=== PATIENT | male | born 1945 | race Hispanic/Latino ===

== ENCOUNTER 2017-03-19 09:10 | Inpatient (IN) | payer MEDICARE ==
[2017-03-19 09:47] VITALS: BMI 35.2
--- NOTE | 2017-03-19 10:52 | RAD ---
HISTORY: infected toe, h/o R rib fractures COMPARISON: 07/27/2015 FINDINGS: LUNGS: No active pulmonary disease. PLEURA: No significant pleural effusion identified, no pneumothorax apparent. CARDIOVASCULAR: Normal. OSSEOUS STRUCTURES: Multiple old rib fractures are seen on the right side. VISUALIZED UPPER ABDOMEN: Normal. OTHER FINDINGS: None. IMPRESSION: No active disease.
[2017-03-19 11:13] LABS: BASO # 0.05 K/mm3 (0.0-2.0); BASO % 0.3 % (0.0-3.0); EOS # 0.3 (0.0-0.7); EOS % 2.2 % (1.5-5.0); GRAN # 11.39 (1.4-6.5); HEMOGLOBIN 13.9 gm/dL (14.0-18.0); LYMPH # 2.1 (1.2-3.4); LYMPH % 13.9 % (22.0-35.0); MEAN CELL VOLUME 90.3 fL (80.0-105.0); MEAN CORPUSCULAR HEMOGLOBIN 29.8 pg (25.0-35.0); MEAN PLATELET VOLUME 9.3 fl (7.0-11.0); MONO # 1.1 (0.1-0.6); MONO % 7.6 % (1.0-6.0); PLATELET COUNT 256 10^3/uL (120.0-450.0); RBC 4.66 10^6/uL (3.5-6.1); RED CELL DISTRIBUTION WIDTH 13.9 % (11.5-14.5)
[2017-03-19 11:19] LABS: ALB/GLOB RATIO 0.8 (1.1-1.8); ALBUMIN 3.5 g/dL (3.0-4.8); ALT/SGPT 53 U/L (7-56); AST/SGOT 37 U/L (15-59); BLOOD UREA NITROGEN 28 mg/dL (7-21); CALCIUM 9.6 mg/dL (8.4-10.5); GFR AFRICAN-AMERICAN > 60; GFR NON-AFRICAN AMERICAN 50; INR 1.02 (0.93-1.08); PARTIAL THROMBOPLASTIN TIME 26.6 Seconds (23.7-30.8)
--- NOTE | 2017-03-19 12:07 | ED PDOC ---
Arrival/HPI - General Chief Complaint: Abnormal Skin Integrity Time Seen by Provider: 03/19/17 10:02 Historian: Patient - History of Present Illness Narrative History of Present Illness (Text): 03/19/17 10:10 A 72 year old male, whose past medical history includes diabetes and hypertension, was sent by Dr. Baron for right 1st digit toe wound. Reports wound developed a week ago and Dr. Baron has attempted to treat the wound as an outpatient with antibiotics and debridement but without improvement. Denies fever, chills, dyspnea. Vp & General Counsel: Dr. Baron PMD: Dr. Hamm Time/Duration: 1 week Symptom Onset: Sudden Symptom Course: Unchanged Activities at Onset: Rest Context: Home Past Medical History - Provider Review Nursing Documentation Reviewed: Yes - Cardiac Hx Cardiac Disorders: Yes Hx Hypertension: Yes - Endocrine/Metabolic Hx Endocrine Disorders: Yes Hx Diabetes Mellitus Type 2: Yes - Hematological/Oncological Hx Blood Transfusions: No - Psychiatric Hx Substance Use: No - Surgical History Hx Cholecystectomy: Yes Hx Musculoskeletal Surgery: Yes (left small toe) - Anesthesia Hx Anesthesia: Yes Hx Anesthesia Reactions: No Hx Malignant Hyperthermia: No Family/Social History - Physician Review Nursing Documentation Reviewed: Yes Family/Social History: No Known Family HX Smoking Status: Never Smoked Hx Alcohol Use: No Hx Substance Use: No Allergies/Home Meds Allergies/Adverse Reactions: Allergies strawberry Adverse Reaction (Verified 03/19/17 09:49) RASH rasberries Adverse Reaction (Intermediate, Uncoded 03/19/17 09:49) RASH Home Medications: Home Meds Medication Instructions Recorded Confirmed Canagliflozin [Invokana] 100 mg PO DAILY 07/08/15 07/08/15 Insulin Glargine, Recombina 40 units SUBCUT DAILY 07/08/15 07/08/15 [Lantus] Lisinopril-Hydrochlorothiazide 1 tab PO DAILY 07/08/15 07/08/15 12.5 mg-10 mg Metformin HCl [Glucophage] 1,000 mg PO ACLD 07/08/15 07/08/15 Novolog 2 units SUBCUT ACBL 07/08/15 07/08/15 Novolog 2 units SUBCUT ACD 07/08/15 07/08/15 Otezla 30 mg PO BID 07/08/15 07/08/15 Victoza 1.8 units SUBCUT DAILY 07/08/15 07/08/15 Zocor 20 mg PO DAILY 07/08/15 07/08/15 Review of Systems - Physician Review All systems were reviewed & negative as marked: Yes - Review of Systems Constitutional: absent: Fevers Skin: Other (1st digit toe wound) Neurological: absent: Headache Physical Exam - Physical Exam Narrative Physical Exam (Text): 03/19/17 10:10 Constitutional: No acute distress. Head: Normocephalic. Atraumatic. Eyes: PERRL. ENT: Moist mucous membranes. Neck: Supple. Cardiovascular: Regular rate. Chest: No tenderness. Respiratory: Clear to auscultation bilaterally. GI: Soft. Nontender. Nondistended. Back: No CVA tenderness. Musculoskeletal: No tenderness or swelling of extremities. Skin: No rash. Neurologic: Alert, no focal deficit. Lower extremity: 1st digit dusky in appearance, onychomycosis of nail, ulcer on medial aspect of 1st digit; asymmetrical R leg swelling. Vital Signs Reviewed: Yes Vital Signs Temp Pulse Resp BP Pulse Ox 03/19/17 09:45 97.7 F 79 18 145/78 95 Temperature: Afebrile Blood Pressure: Normal Pulse: Regular Respiratory Rate: Normal Appearance: Positive for: Well-Appearing, Non-Toxic, Comfortable Pain Distress: None Mental Status: Positive for: Alert and Oriented X 3 Medical Decision Making ED Course and Treatment: 03/19/17 10:10 Impression: A 72 year old male sent by Dr. Baron with right 1st digit toe wound that has failed outpatient treatment. Plan: -- EKG -- chest xray -- labs -- Urinalysis -- US lower extremity vein right -- Reassess and disposition Progress Notes: EKG: Ordered, reviewed, and independently interpreted the EKG. Rate : 75 BPM Rhythm : NSR Interpretation : No ST/T wave changes Chest xray: Creator : Timi Boss MD 03/19/17 10:55 IMPRESSION: No active disease. US lower extremity: Negative for DVT Dr. Greene accepts patient for medical service. Resident paged and antibiotics initiated. - Lab Interpretations Lab Results: 03/19/17 10:33 03/19/17 10:33 Lab Results 03/19/17 11:50: Urine Color Yellow, Urine Appearance Clear, Urine pH 6.0, Ur Specific Jordan 1.025, Urine Protein Negative, Urine Glucose (UA) >=1000, Urine Ketones Negative, Urine Blood Negative, Urine Nitrate Negative, Urine Bilirubin Negative, Urine Urobilinogen 0.2, Ur Leukocyte Esterase Negative 03/19/17 10:35: Blood Type O POSITIVE, Antibody Screen Negative, BBK History Checked No verified bt 03/19/17 10:33: Sodium 138, Potassium 4.3, Chloride 100, Carbon Dioxide 30, Anion Gap 12, BUN 28 H, Creatinine 1.4, Est GFR ( Amer) > 60, Est GFR ( Non-Af Amer) 50, Random Glucose 184 H, Calcium 9.6, Total Bilirubin 0.6, AST 37 , ALT 53, Alkaline Phosphatase 225 H, Total Protein 7.9, Albumin 3.5, Globulin 4.4, Albumin/Globulin Ratio 0.8 L 03/19/17 10:33: PT 11.0, INR 1.02, APTT 26.6 03/19/17 10:33: WBC 15.0 H, RBC 4.66, Hgb 13.9 L, Hct 42.1, MCV 90.3, MCH 29.8, MCHC 33.0, RDW 13.9, Plt Count 256, MPV 9.3, Gran % 76.0 H, Lymph % (Auto) 13.9 L, [place] % (Auto) 7.6 H, Eos % (Auto) 2.2, Baso % (Auto) 0.3, Gran # 11.39 H, Lymph # 2.1, [place] # 1.1 H, Eos # 0.3, Baso # 0.05, ESR 5 I have reviewed the lab results: Yes - RAD Interpretation Radiology Orders: 03/19/17 10:16 CHEST PORTABLE [RAD] Stat DUPLEX LOWER EXTRM VEIN RIGHT [US] Stat - EKG Interpretation Interpreted by ED Physician: Yes Type: 12 lead EKG - Medication Orders Current Medication Orders: Vancomycin HCl (Vancomycin 1gm) 1 gm in 250 mls @ 167 mls/hr IVPB STAT STA PRN Reason: Protocol Stop: 03/19/17 14:11 Discontinued Medications Piperacillin Sod/Tazobactam Sod (Zosyn 4.5 Gm In Ns 100ml) 4.5 gm in 100 mls @ 200 mls/hr IVPB STAT STA PRN Reason: Protocol Stop: 03/19/17 13:11 Last Admin: 03/19/17 13:18 Dose: 200 mls/hr - Scribe Statement The provider has reviewed the documentation as recorded by the Latosha Mcknight Provider Isabelaibjb Attestation: All medical record entries made by the Scribe were at my direction and personally dictated by me. I have reviewed the chart and agree that the record accurately reflects my personal performance of the history, physical exam, medical decision making, and the department course for this patient. I have also personally directed, reviewed, and agree with the discharge instructions and disposition. Disposition/Present on Arrival - Present on Arrival Any Indicators Present on Arrival: No History of DVT/PE: No History of Uncontrolled Diabetes: No Urinary Catheter: No History of Decub. Ulcer: No History Surgical Site Infection Following: None - Disposition Have Diagnosis and Disposition been Completed?: Yes Diagnosis: Diabetic infection of right foot, Failure of outpatient treatment Disposition: HOSPITALIZED Disposition Time: 12:45 Patient Plan: Admission Condition: FAIR
[2017-03-19 12:29] LABS: URINE BILIRUBIN NEGATIVE (NEGATIVE); URINE BLOOD NEGATIVE (NEGATIVE); URINE GLUCOSE (UA) >=1000 mg/dL (NEGATIVE); URINE LEUKOCYTE ESTERASE NEGATIVE Leu/uL (NEGATIVE); URINE NITRATE NEGATIVE (NEGATIVE); URINE PROTEIN NEGATIVE mg/dL (<30 mg/dL); URINE UROBILINOGEN 0.2 E.U./dL (<1 E.U./dL)
[2017-03-19 12:42] LABS: URINE COLOR YELLOW (YELLOW)
[2017-03-19] MEDS ORDERED: Vancomycin 1gm in NS 250ml 1 GM/250 ML BAG IVPB STA (12:42)
[2017-03-19] MEDS ORDERED: Piperacill/Tazo 4.5gm in NS 4.5 GM/100 ML BAG IVPB STA (12:42)
[2017-03-19 12:43] LABS: URINE APPEARANCE CLEAR (CLEAR)
--- NOTE | 2017-03-19 13:30 | US ---
PROCEDURE: Right lower extremity venous US HISTORY: Leg pain and swelling. Evaluate for DVT. PHYSICIAN(S): Riccardo Rodrigez M.D. TECHNIQUE: Duplex sonography and color-flow Doppler with graded compression were used to evaluate the deep venous system of the right lower extremity. The exam is limited by body habitus. FINDINGS: The visualized deep venous system of the right lower extremity is sonographically normal and compressible. Normal waveforms and augmentation are seen. There is no sonographic evidence for deep venous thrombosis in the visualized segments of the right lower extremity. IMPRESSION: 1. No sonographic evidence for deep venous thrombosis in the visualized segments of the right lower extremity.
[2017-03-19] MEDS ORDERED: LIRAGLUTIDE SUBCUT SCH (14:30)
[2017-03-19] MEDS ORDERED: INSULIN GLARGINE RECOMBINA 40 UNIT SUBCUT SCH (14:30)
--- NOTE | 2017-03-19 14:30 | CP.PCM.HP ---
<Hilario Dumont - Last Filed: 03/19/17 16:19> History of Present Illness - History of Present Illness History of Present Illness: Patient is a 72 year old male with PMHx of diabetes, hypertension, HPL, psoriasis, and foot wounds who presents to the ED from Dr. Baron for evaluation of a wound located on the 1st digit of the right foot. Patient states the wound developed from a callous without a provoking event apprxomately [address] Baron has attempted to treat the wound with outpatient antibiotic and debridement without improvement and was advised to come to the hospital for further management. Patient states he has had this same issue multiple times in the past, all of which were treated in the in patient setting. Nimishatriston admits to experiencing chills as the wound worsened by has resolved. Denies fevers, dizziness, chest pain, SOB, abdominal pain, N/V, diarrhea, constipation, and urinary symptoms. PMHx: hypertension, hyperlipidemia, diabetes, psoariasis, foot wounds, rib fractures secondary to traumtic injury PSHx: cholecystectomy, inguinal hernia repair Social Hx: denies ETOH use, former smoker- 1ppd for 1 year quit 50 years ago, and denies illicit drug use Family Hx: noncontributory to case Allergies: strawberries- hives and rasberries-hives, kiwi- hives Medications: Please see med rec Cementer: Dr. Baron PMD: Dr. Hamm Present on Admission - Present on Admission Any Indicators Present on Admission: No Review of Systems - Constitutional Additional comments: please see HPI Past Patient History - Past Social History Smoking Status: Never Smoked - CARDIAC Hx Cardiac Disorders: Yes Hx Hypertension: Yes - ENDOCRINE/METABOLIC Hx Endocrine Disorders: Yes Hx Diabetes Mellitus Type 2: Yes - HEMATOLOGICAL/ONCOLOGICAL Hx Blood Transfusions: No - PSYCHIATRIC Hx Substance Use: No - SURGICAL HISTORY Hx Cholecystectomy: Yes Hx Musculoskeletal Surgery: Yes (left small toe) - ANESTHESIA Hx Anesthesia: Yes Hx Anesthesia Reactions: No Hx Malignant Hyperthermia: No Meds Allergies/Adverse Reactions: Allergies Allergy/AdvReac Type Severity Reaction Status Date / Time strawberry AdvReac RASH Verified 03/19/17 09:49 rasberries AdvReac Intermediate RASH Uncoded 03/19/17 09:49 Physical Exam - Constitutional Appears: Non-toxic, No Acute Distress - Head Exam Head Exam: ATRAUMATIC, NORMAL INSPECTION - Eye Exam Eye Exam: absent: Conjunctival injection - Neck Exam Neck exam: Negative for: Thyromegaly - Respiratory Exam Respiratory Exam: Clear to Auscultation Bilateral, NORMAL BREATHING PATTERN. absent: Rales, Rhonchi, Wheezes - Cardiovascular Exam Cardiovascular Exam: REGULAR RHYTHM, +S1, +S2 - GI/Abdominal Exam GI & Abdominal Exam: Soft. absent: Distended, Guarding, Rigid - Extremities Exam Additional comments: 1st digit on right foot dusky in appearance, no drainage from wound onychomycosis of nail ulcer on medial aspect of 1st digit asymmetrical R leg swelling - Neurological Exam Neurological exam: Alert, CN II-XII Intact, Oriented x3 Additional comments: patient is awake, alert, responds to verbal stimuli, answers questions appropriately, follows commands, and moves extremities past midline sensation is intact to light touch in bilateral feet muscle strength 5/5 throughout - Psychiatric Exam Psychiatric exam: Normal Affect, Normal Mood - Skin Skin Exam: Warm Additional comments: please see extremities section Results - Vital Signs Recent Vital Signs: Last Vital Signs Temp 97.7 F 03/19/17 09:45 Pulse 79 03/19/17 09:45 Resp 18 03/19/17 09:45 BP 145/78 03/19/17 09:45 Pulse Ox 95 03/19/17 09:45 - Labs Result Diagrams: 03/19/17 10:33 03/19/17 10:33 Assessment & Plan - Assessment and Plan (Free Text) Assessment: Patient is a 72 year old male with PMHx of diabetes, hypertension, HPL, and is being admitted to the hospital for evaluation of a wound located on the 1st digit of the right foot. Plan: 1. Wound with leukocytosis details- 1st digit of right foot - admit inpatient med/surg - blood culture stat - wound culture stat - silver sulfadiazene - teflaro 400mg IV q12 - lactic acid stat - crp stat - esr stat - podiatry consult- communicated to service - ID consult - communicated to service - stat orders relayed to nursing - dry MRI of right foot stat - AM labs CBC, BMP, Mag, Phos 2. Edema, details right lower extremity - arterial doppler U/S bilateral stat - venous doppler left LE stat 3. Diabetes - accu checks ACHS - Insulin levemir - Insulin lispro - Victoza - HgbA1c stat 4. HTN - hold home lisinopril- HCTZ - start patient on cozar 5. HPL - continue home zocor, nonformulary, call placed to pharmacy- instructed to switch medication to lipitor 10mg - lipid panel stat 5. Psoriasis - hold home otezla, call placed to pharmacy, medication is nonformulary - may continue if brought from home 7. Elevated Alkaline Phosphatase - LFTs 8. PPX - protonix - subq heparin Patient discussed with atttendingDr. Greene - Date & Time Date: 03/19/17 Time: 03:15 <Amrit Greene U - Last Filed: 03/20/17 00:01> Results - Vital Signs Recent Vital Signs: Last Vital Signs Temp 97.7 F 03/19/17 09:45 Pulse 81 03/19/17 18:28 Resp 18 03/19/17 18:28 BP 162/75 H 03/19/17 18:28 Pulse Ox 96 03/19/17 18:28 - Labs Result Diagrams: 03/19/17 10:33 03/19/17 10:33 Labs: Laboratory Results - last 24 hr 03/19/17 03/19/17 03/19/17 15:15 15:15 15:15 ESR Lactic Acid 1.3 Triglycerides 144 Cholesterol 108 L LDL Cholesterol Direct 38 HDL Cholesterol 31 Procalcitonin 0.19 03/19/17 15:15 ESR 25 H Lactic Acid Triglycerides Cholesterol LDL Cholesterol Direct HDL Cholesterol Procalcitonin Assessment & Plan - Assessment and Plan (Free Text) Assessment: A/P; NON HEALING RIGHT BIG TOE DIABETIC ULCER VS CELLULITIS VS ??OSTEOMYELITIS UNC IRDM LEUCOCYTOSIS ELEVATED ESR ELEVATED CRP GLYCOSURIA LEFT TIBIAL PAD OLD RIGHT RIB FRACTURE RIGHT FOOT ARTHROSIS ?NON DISPLACED RIGHT TRABECULAR FRACTURE WITH PLANTAR OSTEOPHYTE 1ST PHALANX ? FOREIGN BODY RIGHT BIG TOE HX IRDM HX PSORIASIS HTN DYSLIPIDEMIA. ? MILD PRE RENAL KIDNEY INJURY. PLAN PER ORDERS.
[2017-03-19] MEDS ORDERED: INSULIN ASPART SUBCUT SCH (16:30)
[2017-03-19 16:48] LABS: HDL CHOLESTEROL 31 mg/dL (29-60)
[2017-03-19 16:59] LABS: LDL CHOLESTEROL 38 mg/dL (0-129)
--- NOTE | 2017-03-19 17:36 | CARD ---
APPROVED REPORT EKG Measurement Heart [id number] <Conclusion> Normal sinus rhythm Normal ECG
[2017-03-19] MEDS: Insulin Lispro 1 UNITS/0.01 ML SC SCH (17:39)
[2017-03-19] MEDS: Pantoprazole 40 mg EC Tab PO SCH (17:39)
[2017-03-19] MEDS: Insulin Lispro (humaLOG) MEDIUM Coverage SC SCH (17:40)
--- NOTE | 2017-03-19 18:38 | US ---
PROCEDURE: Left lower extremity venous US HISTORY: Leg pain and swelling. Evaluate for DVT. PHYSICIAN(S): Riccardo Rodrigez MD. TECHNIQUE: Duplex sonography and color-flow Doppler with graded compression were used to evaluate the deep venous system of the left lower extremity. The exam is limited by body habitus. FINDINGS: The visualized deep venous system of the left lower extremity is sonographically normal and compressible. Normal wave forms and augmentation are seen. There is no sonographic evidence for deep venous thrombosis in the visualized segments of the left lower extremity. IMPRESSION: 1. No sonographic evidence for deep venous thrombosis in the visualized segments of the left lower extremity.
--- NOTE | 2017-03-19 18:40 | US ---
PROCEDURE: Lower extremity YA exam HISTORY: Peripheral vascular disease with pain and claudication. PHYSICIAN(S): Riccardo Rodrigez MD. FINDINGS: The exam is limited by calcified vessels at multiple levels. The right resting YA is abnormally elevated, 1.34. The left resting YA is not obtainable. The brachial systolic pressures are symmetric. The high thigh pressures are noncompressible. The high thigh PVR waveforms are normal and symmetric. The calf PVR waveforms augment normally. The calf PVR waveforms are normal and symmetric. The right ankle and metatarsal waveforms are normal. The left ankle and metatarsal waveforms are decreased in amplitude compared to the right. This could represent left tibial occlusive disease. IMPRESSION: 1. Limited study due to calcification 2. Left tibial occlusive disease.
[2017-03-19] MEDS: Insulin Detemir 100 units/ml Vial (Levemir) SC SCH (21:57)
[2017-03-20] MEDS: Sodium Chloride 0.9% 1,000 ML IV SCH ×2 (00:13→13:55)
[2017-03-20] MEDS ORDERED: INSULIN ASPART SUBCUT SCH (07:30)
[2017-03-20 08:20] LABS: BASO # 0.05 K/mm3 (0.0-2.0); BASO % 0.4 % (0.0-3.0); EOS # 0.4 (0.0-0.7); EOS % 3.2 % (1.5-5.0); GRAN # 8.68 (1.4-6.5); HEMOGLOBIN 13.8 gm/dL (14.0-18.0); LYMPH # 1.7 (1.2-3.4); LYMPH % 14.8 % (22.0-35.0); MEAN CELL VOLUME 90.8 fL (80.0-105.0); MEAN CORPUSCULAR HEMOGLOBIN 29.4 pg (25.0-35.0); MEAN CORPUSCULAR HGB CONC 32.4 g/dl (31.0-37.0); MEAN PLATELET VOLUME 9.2 fl (7.0-11.0); MONO # 0.8 (0.1-0.6); MONO % 6.6 % (1.0-6.0); PLATELET COUNT 266 10^3/uL (120.0-450.0); RBC 4.69 10^6/uL (3.5-6.1); RED CELL DISTRIBUTION WIDTH 13.9 % (11.5-14.5); WHITE BLOOD COUNT 11.6 10^3/ul (4.5-11.0)
[2017-03-20 08:30] LABS: ALB/GLOB RATIO 0.7 (1.1-1.8); ALBUMIN 3.4 g/dL (3.0-4.8); ALT/SGPT 48 U/L (7-56); AST/SGOT 30 U/L (15-59); BILIRUBIN,DIRECT 0.4 mg/dL (0.0-0.4); BLOOD UREA NITROGEN 22 mg/dL (7-21); CALCIUM 9.3 mg/dL (8.4-10.5); GFR AFRICAN-AMERICAN > 60; GFR NON-AFRICAN AMERICAN 54; URIC ACID 6.3 mg/dL (3.5-8.5)
[2017-03-20] MEDS: Insulin Lispro (humaLOG) MEDIUM Coverage SC SCH ×3 (08:45→18:37)
[2017-03-20 08:50] LABS: FREE T4 1.44 ng/dL (0.78-2.19); T4 8.6 ug/dL (5.5-11.0)
--- NOTE | 2017-03-20 09:06 | CP.PCM.PN ---
Subjective - Date & Time of Evaluation Date of Evaluation: 03/20/17 Time of Evaluation: 08:30 - Subjective Subjective: Diabetic male seen for right hallux ulcer and abcess - pt seen at bedside no c/ o fever or chills dressing clean and intact Objective - Vital Signs/Intake and Output Vital Signs (last 24 hours): Temp Pulse Resp BP Pulse Ox 98.7 F 74 19 134/76 93 L 03/20/17 08:33 03/20/17 08:33 03/20/17 08:33 03/20/17 08:33 03/20/17 08:33 Intake and Output: 03/20/17 03/20/17 06:59 18:59 Intake Total 600 0 Output Total 650 Balance 600 -650 - Medications Medications: Current Medications Atorvastatin Calcium (Lipitor) 10 mg PO DIN [facility] Last Admin: 03/19/17 18:05 Dose: 10 mg Heparin Sodium (Porcine) (Heparin) 5,000 units SC Q8 GERRY PRN Reason: Protocol Last Admin: 03/20/17 05:42 Dose: 5,000 units Ceftaroline Fosamil 400 mg/ (Sodium Chloride) 100 mls @ 100 mls/hr IVPB Q12 GERRY PRN Reason: Protocol Stop: 03/27/17 22:01 Last Admin: 03/19/17 21:56 Dose: 100 mls/hr Sodium Chloride (Sodium Chloride 0.9%) 1,000 mls @ 80 mls/hr IV .[id number] [facility] Last Admin: 03/20/17 00:13 Dose: 80 mls/hr Insulin Detemir (Levemir) 20 unit SC AMHS [facility] Last Admin: 03/19/17 21:57 Dose: 20 unit Insulin Human Lispro (Humalog Med) 0 units SC AC GERRY PRN Reason: Protocol Last Admin: 03/20/17 08:45 Dose: Not Given Insulin Human Lispro (Humalog) 2 units SC ACBL [facility] Insulin Human Lispro (Humalog) 2 units SC ACD [facility] Last Admin: 03/19/17 17:39 Dose: Not Given Losartan Potassium (Cozaar) 25 mg PO DAILY [facility] Non-Formulary Medication (Victoza) 1.8 units SUBCUT DAILY GERRY (Victoza 1.8 Units) (Home Med) 1.8 units SUBCUT DAILY [facility] Oxychlorosene Sodium (Clorpactin Wcs-90) 2 gm TOP DAILY GERRY Pantoprazole Sodium (Protonix Ec Tab) 40 mg PO ACB GERRY Last Admin: 03/19/17 17:39 Dose: 40 mg Silver Sulfadiazine (Silvadene 1% 20 Gm) 0 ea TOP DAILY GERRY - Labs Labs: 03/20/17 07:00 03/20/17 07:00 PT 11.0 Seconds (9.9-11.8) 03/19/17 10:33 INR 1.02 (0.93-1.08) 03/19/17 10:33 APTT 26.6 Seconds (23.7-30.8) 03/19/17 10:33 - Constitutional Appears: Well, No Acute Distress - Extremities Exam Extremities Exam: Pedal Edema. absent: Calf Tenderness, Joint Swelling, Normal Capillary Refill, Normal Inspection, Tenderness Additional comments: Vascular: Non-palpable pedal pulses bilateral - YA elevated on arterial doppler studies - ankle and foot waveforms are pulsitile right foot; TG WNL CAP refill is 3 sec x9 and the right hallux is 4 sec Neurological: pt is insenste secondary to polyneuropathy of diabetes- this is to the level of the ankle Muscle; 5/5 ROM at ankle DF/PF and inversion and eversion bilateral Skin: right hallux is cyantoic with decreased capillary refill - there is a ulcer in the entire circumference of the hallux at the IPJ level which has a sinus tract from the plantar aspect through the medial aspect of the hallux; the medial sinus tract also goes into the 1st interspace approximately 2 inches ; this was explored at bedside since pt is insensate; thin pink purulence was expressed from the medial interspace sinus the remaining skin is thin and shiny and dry Assessment and Plan - Assessment and Plan (Free Text) Assessment: Diabetes with PVD/neuropathy Irwin 4 ulcer with abcess of the right hallux Plan: Review of YA review of MRI - report pending open and flush sinus at bedside - cloropactin ordered pt for OR tomorrow for debridement and further exploration consult Dr Riccardo Rodrigez spoke at length with patient's daughter on phone - prognosis for toe salvage is guarded wedge shoe ordered
--- NOTE | 2017-03-20 09:13 | MRI ---
PROCEDURE: MRI of the right foot without contrast HISTORY: Right Foot Wound- Possible Osetomyelitis COMPARISON: TECHNIQUE: MRI of the right foot was performed in multiple planes using multiple pulse sequences. FINDINGS: There is subcutaneous edema on the medial side of the 1st proximal phalanx. This is consistent with cellulitis. There is no evidence of adjacent osteomyelitis. Cystic degenerative changes are seen in the head of the 1st metatarsal and the 5th metatarsal The report concurs with the preliminary [facility] report IMPRESSION: Cellulitis medial aspect of the big toe. No evidence of osteomyelitis
[2017-03-20] MEDS: Insulin Detemir 100 units/ml Vial (Levemir) SC SCH ×2 (09:39→21:50)
[2017-03-20] MEDS: Insulin Lispro 1 UNITS/0.01 ML SC SCH ×3 (09:39→18:40)
[2017-03-20] MEDS: Pantoprazole 40 mg EC Tab PO SCH (09:39)
[2017-03-20] MEDS: Silver Sulfadiazine 1% Cream (20 gm) TOP SCH (09:40)
[2017-03-20] MEDS ORDERED: LIRAGLUTIDE SUBCUT SCH (10:00)
[2017-03-20] MEDS ORDERED: Ceftaroline 400 mg Inj IVPB SCH (10:00)
--- NOTE | 2017-03-20 10:23 | CP.PCM.PN ---
Addendum entered and electronically signed by Geovany Stern DO 03/20/17 17:06: Patient and examined with Dr. Dumont. Agree with his exam and plan. 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 Pending OR for debridement and further exam as per Podiatry. Original Note: <Hilario Dumont - Last Filed: 03/20/17 10:18> Subjective - Date & Time of Evaluation Date of Evaluation: 03/20/17 Time of Evaluation: 09:00 - Subjective Subjective: Patient seen and examined at bedside. No acute events overnight. Patient is resting comfortably in bed. Offers no new complaints at this time. Denies fever , chills, chest pain, SOB, abdominal pain, N/V. Objective - Vital Signs/Intake and Output Vital Signs (last 24 hours): Temp Pulse Resp BP Pulse Ox 98.7 F 74 19 134/76 93 L 03/20/17 08:33 03/20/17 09:38 03/20/17 08:33 03/20/17 09:38 03/20/17 08:33 Intake and Output: 03/20/17 03/20/17 06:59 18:59 Intake Total 600 0 Output Total 650 Balance 600 -650 - Medications Medications: Current Medications Atorvastatin Calcium (Lipitor) 10 mg PO DIN [facility] Last Admin: 03/19/17 18:05 Dose: 10 mg Heparin Sodium (Porcine) (Heparin) 5,000 units SC Q8 [facility] PRN Reason: Protocol Last Admin: 03/20/17 05:42 Dose: 5,000 units Ceftaroline Fosamil 400 mg/ (Sodium Chloride) 100 mls @ 100 mls/hr IVPB Q12 [facility] PRN Reason: Protocol Stop: 03/27/17 22:01 Last Admin: 03/20/17 09:44 Dose: 100 mls/hr Sodium Chloride (Sodium Chloride 0.9%) 1,000 mls @ 80 mls/hr IV .[id number] [facility] Last Admin: 03/20/17 00:13 Dose: 80 mls/hr Insulin Detemir (Levemir) 20 unit SC AMHS [facility] Last Admin: 03/20/17 09:39 Dose: 20 unit Insulin Human Lispro (Humalog Med) 0 units SC AC [facility] PRN Reason: Protocol Last Admin: 03/20/17 08:45 Dose: Not Given Insulin Human Lispro (Humalog) 2 units SC ACBL [facility] Last Admin: 03/20/17 09:39 Dose: 2 units Insulin Human Lispro (Humalog) 2 units SC ACD [facility] Last Admin: 03/19/17 17:39 Dose: Not Given Losartan Potassium (Cozaar) 25 mg PO DAILY [facility] Last Admin: 03/20/17 09:38 Dose: 25 mg Non-Formulary Medication (Victoza) 1.8 units SUBCUT DAILY [facility] (Victoza 1.8 Units) (Home Med) 1.8 units SUBCUT DAILY [facility] Oxychlorosene Sodium (Clorpactin Wcs-90) 2 gm TOP DAILY [facility] Pantoprazole Sodium (Protonix Ec Tab) 40 mg PO ACB [facility] Last Admin: 03/20/17 09:39 Dose: 40 mg Silver Sulfadiazine (Silvadene 1% 20 Gm) 0 ea TOP DAILY [facility] Last Admin: 03/20/17 09:40 Dose: Not Given - Labs Labs: 03/20/17 07:00 03/20/17 07:00 PT 11.0 Seconds (9.9-11.8) 03/19/17 10:33 INR 1.02 (0.93-1.08) 03/19/17 10:33 APTT 26.6 Seconds (23.7-30.8) 03/19/17 10:33 - Additional Findings Additional findings: - Constitutional Appears: Non-toxic, No Acute Distress - Head Exam Head Exam: ATRAUMATIC, NORMAL INSPECTION - Eye Exam Eye Exam: absent: Conjunctival injection - Neck Exam Neck exam: Negative for: Thyromegaly - Respiratory Exam Respiratory Exam: Clear to Auscultation Bilateral, NORMAL BREATHING PATTERN. absent: Rales, Rhonchi, Wheezes - Cardiovascular Exam Cardiovascular Exam: REGULAR RHYTHM, +S1, +S2 - GI/Abdominal Exam GI & Abdominal Exam: Soft. absent: Distended, Guarding, Rigid - Extremities Exam Additional comments: right hallux is cyantoic with decreased capillary refill ulcer in the entire circumference of the hallux at the IPJ le - Neurological Exam Neurological exam: Alert, CN II-XII Intact, Oriented x3 Additional comments: patient is awake, alert, responds to verbal stimuli, answers questions appropriately, follows commands, and moves extremities past midline sensation decreased to touch in bilateral feet likely secondary to polyneuropathy due to diabetes muscle strength 5/5 throughout - Psychiatric Exam Psychiatric exam: Normal Affect, Normal Mood - Skin Skin Exam: Warm Additional comments: right hallux is cyantoic ulcer in the entire circumference of the hallux at the IPJ level Assessment and Plan - Assessment and Plan (Free Text) Assessment: Patient is a 72 year old male with PMHx of diabetes, hypertension, HPL, and is being admitted to the hospital for evaluation of a wound located on the 1st digit of the right foot Plan: 1. Wound with leukocytosis details- 1st digit of right foot; PVD - wound culture pending - silver sulfadiazene - teflaro 400mg IV q12 - podiatry consult- pt for OR tomorrow for debridement and further exploration - IR was consulted by podiatry and are now following case- appreciate input - ID consult - appreciate input - dry MRI of right foot reviewed-Cellulitis medial aspect of the big toe. No evidence of osteomyelitis - AM labs CBC, BMP, Mag, Phos 2. Edema, details right lower extremity - arterial doppler U/S bilateral read- limited study due to calcifcations - venous doppler left L- no DVTs 3. Diabetes - accu checks ACHS - Insulin levemir - Insulin lispro - Victoza - HgbA1c stat 4. HTN - hold home lisinopril- HCTZ - patient on cozar 5. HPL - continue home zocor, nonformulary, call placed to pharmacy- instructed to switch medication to lipitor 10mg - lipid panel stat 5. Psoriasis - hold home otezla, call placed to pharmacy, medication is nonformulary - may continue if brought from home, patient states he does not want to take medication at this time 7. Elevated Alkaline Phosphatase - LFTs reviewed 8. PPX - protonix - subq heparin Patient discussed with atttenDr. Jc luciano <Amrit Greene - Last Filed: 03/21/17 09:06> Objective - Vital Signs/Intake and Output Vital Signs (last 24 hours): Temp Pulse Resp BP Pulse Ox 98.7 F 67 18 144/75 93 L 03/21/17 08:34 03/21/17 08:34 03/21/17 08:34 03/21/17 08:34 03/21/17 08:34 Intake and Output: 03/21/17 03/21/17 06:59 18:59 Intake Total 2400 Output Total 400 Balance 2000 - Medications Medications: Current Medications Atorvastatin Calcium (Lipitor) 10 mg PO DIN [facility] Last Admin: 03/20/17 18:40 Dose: 10 mg Heparin Sodium (Porcine) (Heparin) 5,000 units SC Q8 [facility] PRN Reason: Protocol Last Admin: 03/21/17 05:11 Dose: 5,000 units Ceftaroline Fosamil 400 mg/ (Sodium Chloride) 100 mls @ 100 mls/hr IVPB Q12 [facility] PRN Reason: Protocol Stop: 03/27/17 22:01 Last Admin: 03/20/17 21:51 Dose: 100 mls/hr Sodium Chloride (Sodium Chloride 0.9%) 1,000 mls @ 80 mls/hr IV .[id number] [facility] Last Admin: 03/21/17 00:20 Dose: 80 mls/hr Insulin Detemir (Levemir) 20 unit SC AMHS [facility] Last Admin: 03/20/17 21:50 Dose: 20 unit Insulin Human Lispro (Humalog Med) 0 units SC AC [facility] PRN Reason: Protocol Last Admin: 03/21/17 08:03 Dose: Not Given Insulin Human Lispro (Humalog) 2 units SC ACBL [facility] Last Admin: 03/21/17 08:04 Dose: Not Given Insulin Human Lispro (Humalog) 2 units SC ACD [facility] Last Admin: 03/20/17 18:40 Dose: 2 units Losartan Potassium (Cozaar) 25 mg PO DAILY [facility] Last Admin: 03/20/17 09:38 Dose: 25 mg (Victoza 1.8 Units) (Home Med) 1.8 units SUBCUT DAILY [facility] Oxychlorosene Sodium (Clorpactin Wcs-90) 2 gm TOP DAILY [facility] Last Admin: 03/20/17 12:54 Dose: 2 gm Pantoprazole Sodium (Protonix Ec Tab) 40 mg PO ACB [facility] Last Admin: 03/21/17 08:46 Dose: 40 mg Silver Sulfadiazine (Silvadene 1% 20 Gm) 0 ea TOP DAILY [facility] Last Admin: 03/20/17 09:40 Dose: Not Given - Labs Labs: 03/21/17 06:00 03/21/17 06:00 PT 11.0 Seconds (9.9-11.8) 03/19/17 10:33 INR 1.02 (0.93-1.08) 03/19/17 10:33 APTT 26.6 Seconds (23.7-30.8) 03/19/17 10:33 Assessment and Plan - Assessment and Plan (Free Text) Assessment: PATIENT SEEN AND EXAMINED LYING IN BED AT BEDSIDE WITH IN ROOM 367-2 RESIDENT'S NOTES REVIEWED A/P: NON HEALING RIGHT BIG TOE DIABETIC ULCER VS CELLULITIS WITH GNR & STAPHYLOCOCCUS AUREUS RIGHT FOOT BIG TOE CELLULITIS VS ABSCESS UNC IRDM WITH HGB A1C OF 9.7 LEUCOCYTOSIS WITH GRANULOCYTOSIS. ELEVATED ESR ELEVATED CRP GLYCOSURIA LEFT TIBIAL PAD OLD RIGHT RIB FRACTURE RIGHT FOOT ARTHROSIS ?NON DISPLACED RIGHT TRABECULAR FRACTURE WITH PLANTAR OSTEOPHYTE 1ST PHALANX ? FOREIGN BODY RIGHT BIG TOE HX IRDM HX PSORIASIS HTN DYSLIPIDEMIA. ? MILD PRE RENAL KIDNEY INJURY HTN HYPOVITAMINOSIS-D MILD ANEMIA PLAN PER ORDERS. ID & PODIATRY REC NOTED
[2017-03-20 10:42] LABS: FREE T4 1.64 ng/dL (0.78-2.19); T4 8.7 ug/dL (5.5-11.0)
[2017-03-20] MEDS: Oxychlorosene Topical 2 gm Packet TOP SCH (12:54)
[2017-03-20 14:07] LABS: HEPATITIS B SURFACE AG NEGATIVE (NEGATIVE)
[2017-03-20 14:13] LABS: HEPATITIS A IGM NEGATIVE (NEGATIVE); HEPATITIS B CORE AB NEGATIVE (NEGATIVE)
[2017-03-20 14:25] LABS: HEPATITIS C ANTIBODY NEGATIVE (NEGATIVE)
--- NOTE | 2017-03-20 16:23 | CP.PCM.PN ---
Subjective - Date & Time of Evaluation Date of Evaluation: 03/20/17 Time of Evaluation: 16:23 - Subjective Subjective: infected ischemic rt toe Objective - Vital Signs/Intake and Output Vital Signs (last 24 hours): Temp Pulse Resp BP Pulse Ox 98.7 F 74 19 134/76 93 L 03/20/17 08:33 03/20/17 09:38 03/20/17 08:33 03/20/17 09:38 03/20/17 08:33 Intake and Output: 03/20/17 03/20/17 06:59 18:59 Intake Total 600 800 Output Total 650 Balance 600 150 - Medications Medications: Current Medications Atorvastatin Calcium (Lipitor) 10 mg PO DIN [facility] Last Admin: 03/19/17 18:05 Dose: 10 mg Heparin Sodium (Porcine) (Heparin) 5,000 units SC Q8 [facility] PRN Reason: Protocol Last Admin: 03/20/17 14:56 Dose: 5,000 units Ceftaroline Fosamil 400 mg/ (Sodium Chloride) 100 mls @ 100 mls/hr IVPB Q12 [facility] PRN Reason: Protocol Stop: 03/27/17 22:01 Last Admin: 03/20/17 09:44 Dose: 100 mls/hr Sodium Chloride (Sodium Chloride 0.9%) 1,000 mls @ 80 mls/hr IV .[id number] [facility] Last Admin: 03/20/17 13:55 Dose: 80 mls/hr Insulin Detemir (Levemir) 20 unit SC AMHS [facility] Last Admin: 03/20/17 09:39 Dose: 20 unit Insulin Human Lispro (Humalog Med) 0 units SC AC [facility] PRN Reason: Protocol Last Admin: 03/20/17 11:36 Dose: 5 units Insulin Human Lispro (Humalog) 2 units SC ACBL [facility] Last Admin: 03/20/17 11:37 Dose: 2 units Insulin Human Lispro (Humalog) 2 units SC ACD [facility] Last Admin: 03/19/17 17:39 Dose: Not Given Losartan Potassium (Cozaar) 25 mg PO DAILY [facility] Last Admin: 03/20/17 09:38 Dose: 25 mg (Victoza 1.8 Units) (Home Med) 1.8 units SUBCUT DAILY [facility] Oxychlorosene Sodium (Clorpactin Wcs-90) 2 gm TOP DAILY [facility] Last Admin: 03/20/17 12:54 Dose: 2 gm Pantoprazole Sodium (Protonix Ec Tab) 40 mg PO ACB [facility] Last Admin: 03/20/17 09:39 Dose: 40 mg Silver Sulfadiazine (Silvadene 1% 20 Gm) 0 ea TOP DAILY [facility] Last Admin: 03/20/17 09:40 Dose: Not Given - Labs Labs: 03/20/17 07:00 03/20/17 07:00 PT 11.0 Seconds (9.9-11.8) 03/19/17 10:33 INR 1.02 (0.93-1.08) 03/19/17 10:33 APTT 26.6 Seconds (23.7-30.8) 03/19/17 10:33 Assessment and Plan - Assessment and Plan (Free Text) Plan: Infected ischemic right great toe YA/PVR normal on right to metatarsal level Debridement planned by Dr. Baron. No further vascular workup at this time. PLS
--- NOTE | 2017-03-20 18:36 | CP.PCM.CON ---
History of Present Illness - History of Present Illness History of Present Illness: 72 year old male with PMH of DM, HTN, dyslipidemia, psoriasis, history of wounds in the foot, history of rib fractures due to trauma, was sent in by Dr. Baron because of a wound on the right hallux which has been present since about 2 weeks ago. It had been treated with PO antibiotics and wound care but the wound continues to worsen. The patient denies animal contacts, no soaking of feet in water, denies specific trauma, no fever or chills, no nausea or vomiting, no headache or dizziness, no chest pain, no SOB, no abdominal pain, no dysuria, no diarrhea. Infectious Diseases consult is requested to further evaluate and manage. Review of Systems - Review of Systems All systems: reviewed and no additional remarkable complaints except (as per HPI ) Past Patient History - Past Social History Smoking Status: Never Smoked - CARDIAC Hx Cardiac Disorders: Yes Hx Hypertension: Yes - ENDOCRINE/METABOLIC Hx Endocrine Disorders: Yes Hx Diabetes Mellitus Type 2: Yes - HEMATOLOGICAL/ONCOLOGICAL Hx Blood Transfusions: No - PSYCHIATRIC Hx Substance Use: No - SURGICAL HISTORY Hx Cholecystectomy: Yes Hx Musculoskeletal Surgery: Yes (left small toe) - ANESTHESIA Hx Anesthesia: Yes Hx Anesthesia Reactions: No Hx Malignant Hyperthermia: No Meds Allergies/Adverse Reactions: Allergies Allergy/AdvReac Type Severity Reaction Status Date / Time kiwi Allergy RASH Verified 03/20/17 01:11 strawberry AdvReac RASH Verified 03/19/17 09:49 rasberries AdvReac Intermediate RASH Uncoded 03/19/17 09:49 - Medications Medications: Current Medications Atorvastatin Calcium (Lipitor) 10 mg PO DIN [facility] Last Admin: 03/19/17 18:05 Dose: 10 mg Heparin Sodium (Porcine) (Heparin) 5,000 units SC Q8 [facility] PRN Reason: Protocol Ceftaroline Fosamil 400 mg/ (Sodium Chloride) 100 mls @ 100 mls/hr IVPB Q12 [facility] Insulin Detemir (Levemir) 20 unit SC AMHS [facility] Insulin Human Lispro (Humalog Med) 0 units SC AC [facility] PRN Reason: Protocol Last Admin: 03/19/17 17:40 Dose: 1 units Insulin Human Lispro (Humalog) 2 units SC ACBL [facility] Insulin Human Lispro (Humalog) 2 units SC ACD [facility] Last Admin: 03/19/17 17:39 Dose: Not Given Losartan Potassium (Cozaar) 25 mg PO DAILY [facility] Non-Formulary Medication (Victoza) 1.8 units SUBCUT DAILY [facility] (Victoza 1.8 Units) (Home Med) 1.8 units SUBCUT DAILY [facility] Pantoprazole Sodium (Protonix Ec Tab) 40 mg PO ACB [facility] Last Admin: 03/19/17 17:39 Dose: 40 mg Silver Sulfadiazine (Silvadene 1% 20 Gm) 0 ea TOP DAILY [facility] Physical Exam - Constitutional Appears: Non-toxic, No Acute Distress - Head Exam Head Exam: NORMAL INSPECTION - ENT Exam ENT Exam: Mucous Membranes Moist - Neck Exam Neck exam: Negative for: Lymphadenopathy, Meningismus - Respiratory Exam Respiratory Exam: Decreased Breath Sounds - Cardiovascular Exam Cardiovascular Exam: +S1, +S2 - GI/Abdominal Exam GI & Abdominal Exam: Soft. absent: Tenderness - Extremities Exam Additional comments: right foot with dry dressings in place Results - Vital Signs Recent Vital Signs: Last Vital Signs Temp 97.7 F 03/19/17 09:45 Pulse 79 03/19/17 09:45 Resp 18 03/19/17 09:45 BP 145/78 03/19/17 09:45 Pulse Ox 95 03/19/17 09:45 - Labs Result Diagrams: 03/20/17 07:00 03/20/17 07:00 Labs: Laboratory Results - last 24 hr 03/19/17 03/19/17 03/19/17 15:15 15:15 15:15 ESR 25 H Lactic Acid 1.3 Triglycerides 144 Cholesterol 108 L LDL Cholesterol Direct 38 HDL Cholesterol 31 Assessment & Plan - Assessment and Plan (Free Text) Plan: Assessment Right hallux infected ulcer, R/O osteomyelitis DM HTN dyslipidemia psoriasis history of wounds in the foot history of rib fractures due to trauma Plan Started patient on Teflaro pending blood cx, wound cx, ESR, CRP, MRI of the foot will monitor clinically discussed with Dr. Baron
[2017-03-21] MEDS: Sodium Chloride 0.9% 1,000 ML IV SCH ×2 (00:20→12:59)
[2017-03-21 06:59] LABS: ALB/GLOB RATIO 0.7 (1.1-1.8); ALT/SGPT 31 U/L (7-56); AST/SGOT 28 U/L (15-59); BILIRUBIN,DIRECT 0.3 mg/dL (0.0-0.4); BLOOD UREA NITROGEN 18 mg/dL (7-21); CALCIUM 8.8 mg/dL (8.4-10.5); GFR AFRICAN-AMERICAN > 60; GFR NON-AFRICAN AMERICAN 60
[2017-03-21 07:04] LABS: BASO # 0.02 K/mm3 (0.0-2.0); BASO % 0.2 % (0.0-3.0); EOS # 0.3 (0.0-0.7); EOS % 2.6 % (1.5-5.0); GRAN # 8.24 (1.4-6.5); GRAN % 71.8 % (50.0-68.0); HEMOGLOBIN 12.8 gm/dL (14.0-18.0); LYMPH # 2.1 (1.2-3.4); LYMPH % 18.6 % (22.0-35.0); MEAN CORPUSCULAR HGB CONC 32.2 g/dl (31.0-37.0); MONO # 0.8 (0.1-0.6); MONO % 6.8 % (1.0-6.0); PLATELET COUNT 246 10^3/uL (120.0-450.0); RBC 4.42 10^6/uL (3.5-6.1); RED CELL DISTRIBUTION WIDTH 13.5 % (11.5-14.5); WHITE BLOOD COUNT 11.5 10^3/ul (4.5-11.0)
--- NOTE | 2017-03-21 07:48 | CP.PCM.PN ---
<Hilario Dumont - Last Filed: 03/21/17 07:44> Subjective - Date & Time of Evaluation Date of Evaluation: 03/21/17 Time of Evaluation: 07:15 - Subjective Subjective: Patient seen and examined at bedside. No acute events overnight. Patient is resting comfortably in bed. Offers no new complaints at this time. Understands plan for debridement and antibiotics. Denies fever, chills, chest pain, SOB, abdominal pain, N/V, diarrhea, constipation, and urinary symptoms. Objective - Vital Signs/Intake and Output Vital Signs (last 24 hours): Temp Pulse Resp BP Pulse Ox 99.3 F 73 20 144/81 93 L 03/20/17 16:00 03/20/17 16:00 03/20/17 16:00 03/20/17 16:00 03/20/17 16:00 Intake and Output: 03/21/17 03/21/17 06:59 18:59 Intake Total 2400 Output Total 400 Balance 2000 - Medications Medications: Current Medications Atorvastatin Calcium (Lipitor) 10 mg PO DIN [facility] Last Admin: 03/20/17 18:40 Dose: 10 mg Heparin Sodium (Porcine) (Heparin) 5,000 units SC Q8 [facility] PRN Reason: Protocol Last Admin: 03/21/17 05:11 Dose: 5,000 units Ceftaroline Fosamil 400 mg/ (Sodium Chloride) 100 mls @ 100 mls/hr IVPB Q12 [facility] PRN Reason: Protocol Stop: 03/27/17 22:01 Last Admin: 03/20/17 21:51 Dose: 100 mls/hr Sodium Chloride (Sodium Chloride 0.9%) 1,000 mls @ 80 mls/hr IV .[id number] [facility] Last Admin: 03/21/17 00:20 Dose: 80 mls/hr Insulin Detemir (Levemir) 20 unit SC AMHS [facility] Last Admin: 03/20/17 21:50 Dose: 20 unit Insulin Human Lispro (Humalog Med) 0 units SC AC [facility] PRN Reason: Protocol Last Admin: 03/20/17 18:37 Dose: 3 units Insulin Human Lispro (Humalog) 2 units SC ACBL [facility] Last Admin: 03/20/17 11:37 Dose: 2 units Insulin Human Lispro (Humalog) 2 units SC ACD [facility] Last Admin: 03/20/17 18:40 Dose: 2 units Losartan Potassium (Cozaar) 25 mg PO DAILY [facility] Last Admin: 03/20/17 09:38 Dose: 25 mg (Victoza 1.8 Units) (Home Med) 1.8 units SUBCUT DAILY [facility] Oxychlorosene Sodium (Clorpactin Wcs-90) 2 gm TOP DAILY [facility] Last Admin: 03/20/17 12:54 Dose: 2 gm Pantoprazole Sodium (Protonix Ec Tab) 40 mg PO ACB [facility] Last Admin: 03/20/17 09:39 Dose: 40 mg Silver Sulfadiazine (Silvadene 1% 20 Gm) 0 ea TOP DAILY [facility] Last Admin: 03/20/17 09:40 Dose: Not Given - Labs Labs: 03/21/17 06:00 03/21/17 06:00 PT 11.0 Seconds (9.9-11.8) 03/19/17 10:33 INR 1.02 (0.93-1.08) 03/19/17 10:33 APTT 26.6 Seconds (23.7-30.8) 03/19/17 10:33 - Additional Findings Additional findings: - Constitutional Appears: Non-toxic, No Acute Distress - Head Exam Head Exam: ATRAUMATIC, NORMAL INSPECTION - Eye Exam Eye Exam: absent: Conjunctival injection - Neck Exam Neck exam: Negative for: Thyromegaly - Respiratory Exam Respiratory Exam: Clear to Auscultation Bilateral, NORMAL BREATHING PATTERN. absent: Rales, Rhonchi, Wheezes - Cardiovascular Exam Cardiovascular Exam: REGULAR RHYTHM, +S1, +S2 - GI/Abdominal Exam GI & Abdominal Exam: Soft. absent: Distended, Guarding, Rigid - Extremities Exam Additional comments: right hallux is cyantoic with decreased capillary refill ulcer in the entire circumference of the hallux at the IPJ le - Neurological Exam Neurological exam: Alert, CN II-XII Intact, Oriented x3 Additional comments: patient is awake, alert, responds to verbal stimuli, answers questions appropriately, follows commands, and moves extremities past midline sensation decreased to touch in bilateral feet likely secondary to polyneuropathy due to diabetes muscle strength 5/5 throughout - Psychiatric Exam Psychiatric exam: Normal Affect, Normal Mood - Skin Skin Exam: Warm Additional comments: right hallux is cyantoic ulcer in the entire circumference of the hallux at the IPJ level psoaratic rash bilateral elbows and knees Assessment and Plan - Assessment and Plan (Free Text) Assessment: Patient is a 72 year old male with PMHx of diabetes, hypertension, HPL, and is being admitted to the hospital day #3 under inpatient status for evaluation of a wound located on the 1st digit of the right foot Plan: 1. Wound with leukocytosis details- 1st digit of right foot; PVD - wound culture- grew light gram negative rods and staph aureus - silver sulfadiazene - teflaro 400mg IV q12 - podiatry consult- pt for OR today for debridement and further exploration - IR was consulted by podiatry and are now following case- no vascular intervention needed at this time - ID consult - instructed to continue teflaro, - dry MRI of right foot reviewed-Cellulitis medial aspect of the big toe. No evidence of osteomyelitis - AM labs CBC, BMP, Mag, Phos 2. Edema, details right lower extremity - arterial doppler U/S bilateral read- limited study due to calcifcations - venous doppler left L- no DVTs 3. Diabetes - accu checks ACHS - Insulin levemir - Insulin lispro - Victoza - HgbA1c stat 4. HTN - hold home lisinopril- HCTZ - patient on cozar 5. HPL - continue home zocor, nonformulary, call placed to pharmacy- instructed to switch medication to lipitor 10mg - lipid panel stat 5. Psoriasis - hold home otezla, call placed to pharmacy, medication is nonformulary - may continue if brought from home, patient states he does not want to take medication at this time 7. Elevated Alkaline Phosphatase - LFTs reviewed 8. PPX - protonix - subq heparin Patient discussed with attending, Dr. Greene <Amrit Greene U - Last Filed: 03/21/17 14:00> Objective - Vital Signs/Intake and Output Vital Signs (last 24 hours): Temp Pulse Resp BP Pulse Ox 98.7 F 67 18 144/75 93 L 03/21/17 08:34 03/21/17 09:20 03/21/17 08:34 03/21/17 09:20 03/21/17 08:34 Intake and Output: 03/21/17 03/21/17 06:59 18:59 Intake Total 2400 Output Total 400 Balance 1999 - Medications Medications: Current Medications Atorvastatin Calcium (Lipitor) 10 mg PO DIN [facility] Last Admin: 03/20/17 18:40 Dose: 10 mg Heparin Sodium (Porcine) (Heparin) 5,000 units SC Q8 [facility] PRN Reason: Protocol Last Admin: 03/21/17 05:11 Dose: 5,000 units Ceftaroline Fosamil 400 mg/ (Sodium Chloride) 100 mls @ 100 mls/hr IVPB Q12 [facility] PRN Reason: Protocol Stop: 03/27/17 22:01 Last Admin: 03/21/17 09:24 Dose: 100 mls/hr Sodium Chloride (Sodium Chloride 0.9%) 1,000 mls @ 80 mls/hr IV .[id number] [facility] Last Admin: 03/21/17 12:59 Dose: 80 mls/hr Insulin Detemir (Levemir) 20 unit SC AMHS [facility] Last Admin: 03/21/17 09:59 Dose: 20 unit Insulin Human Lispro (Humalog Med) 0 units SC AC [facility] PRN Reason: Protocol Last Admin: 03/21/17 11:51 Dose: Not Given Insulin Human Lispro (Humalog) 2 units SC ACBL [facility] Last Admin: 03/21/17 11:51 Dose: 2 units Insulin Human Lispro (Humalog) 2 units SC ACD [facility] Last Admin: 03/20/17 18:40 Dose: 2 units Losartan Potassium (Cozaar) 25 mg PO DAILY [facility] Last Admin: 03/21/17 09:20 Dose: 25 mg (Victoza 1.8 Units) (Home Med) 1.8 units SUBCUT DAILY [facility] Last Admin: 03/21/17 09:23 Dose: Not Given Oxychlorosene Sodium (Clorpactin Wcs-90) 2 gm TOP DAILY [facility] Last Admin: 03/21/17 09:50 Dose: 2 gm Pantoprazole Sodium (Protonix Ec Tab) 40 mg PO ACB [facility] Last Admin: 03/21/17 08:46 Dose: 40 mg Silver Sulfadiazine (Silvadene 1% 20 Gm) 0 ea TOP DAILY [facility] Last Admin: 03/21/17 09:21 Dose: 1 unit - Labs Labs: 03/21/17 06:00 03/21/17 06:00 PT 11.0 Seconds (9.9-11.8) 03/19/17 10:33 INR 1.02 (0.93-1.08) 03/19/17 10:33 APTT 26.6 Seconds (23.7-30.8) 03/19/17 10:33 Assessment and Plan - Assessment and Plan (Free Text) Assessment: PATIENT SEEN AND EXAMINED IN ROOM- 367-2 Assessment and Plan - Assessment and Plan (Free Text) Assessment: PATIENT SEEN AND EXAMINED RESIDENT'S NOTES REVIEWED A/P: NON HEALING RIGHT BIG TOE DIABETIC ULCER VS CELLULITIS WITH GNR & STAPHYLOCOCCUS AUREUS RIGHT FOOT BIG TOE CELLULITIS VS ABSCESS UNC IRDM WITH HGB A1C OF 9.7 LEUCOCYTOSIS WITH GRANULOCYTOSIS. ELEVATED ESR ELEVATED CRP GLYCOSURIA LEFT TIBIAL PAD OLD RIGHT RIB FRACTURE RIGHT FOOT ARTHROSIS ?NON DISPLACED RIGHT TRABECULAR FRACTURE WITH PLANTAR OSTEOPHYTE 1ST PHALANX ? FOREIGN BODY RIGHT BIG TOE HX IRDM HX PSORIASIS HTN DYSLIPIDEMIA. ? MILD PRE RENAL KIDNEY INJURY HTN HYPOVITAMINOSIS-D MILD ANEMIA PLAN PER ORDERS. ID & PODIATRY REC NOTED AWAITING PODIATRY INTERVENTION
[2017-03-21] MEDS: Insulin Lispro (humaLOG) MEDIUM Coverage SC SCH ×3 (08:03→16:44)
[2017-03-21] MEDS: Insulin Lispro 1 UNITS/0.01 ML SC SCH ×3 (08:04→16:44)
[2017-03-21] MEDS: Pantoprazole 40 mg EC Tab PO SCH (08:46)
[2017-03-21] MEDS: Silver Sulfadiazine 1% Cream (20 gm) TOP SCH (09:21)
[2017-03-21] MEDS: Oxychlorosene Topical 2 gm Packet TOP SCH (09:50)
[2017-03-21] MEDS: Insulin Detemir 100 units/ml Vial (Levemir) SC SCH ×2 (09:59→21:22)
--- NOTE | 2017-03-21 12:17 | CP.PCM.PN ---
Subjective - Date & Time of Evaluation Date of Evaluation: 03/21/17 Time of Evaluation: 11:45 - Subjective Subjective: Patient is resting comfortably in bed, not in distress, afebrile. Objective - Vital Signs/Intake and Output Vital Signs (last 24 hours): Temp Pulse Resp BP Pulse Ox 99.3 F 73 20 144/81 93 L 03/20/17 16:00 03/20/17 16:00 03/20/17 16:00 03/20/17 16:00 03/20/17 16:00 Intake and Output: 03/21/17 03/21/17 06:59 18:59 Intake Total 2400 Output Total 400 Balance 2000 - Medications Medications: Current Medications Atorvastatin Calcium (Lipitor) 10 mg PO DIN [facility] Last Admin: 03/20/17 18:40 Dose: 10 mg Heparin Sodium (Porcine) (Heparin) 5,000 units SC Q8 [facility] PRN Reason: Protocol Last Admin: 03/21/17 05:11 Dose: 5,000 units Ceftaroline Fosamil 400 mg/ (Sodium Chloride) 100 mls @ 100 mls/hr IVPB Q12 [facility] PRN Reason: Protocol Stop: 03/27/17 22:01 Last Admin: 03/20/17 21:51 Dose: 100 mls/hr Sodium Chloride (Sodium Chloride 0.9%) 1,000 mls @ 80 mls/hr IV .[id number] [facility] Last Admin: 03/21/17 00:20 Dose: 80 mls/hr Insulin Detemir (Levemir) 20 unit SC AMHS [facility] Last Admin: 03/20/17 21:50 Dose: 20 unit Insulin Human Lispro (Humalog Med) 0 units SC AC [facility] PRN Reason: Protocol Last Admin: 03/21/17 08:03 Dose: Not Given Insulin Human Lispro (Humalog) 2 units SC ACBL [facility] Last Admin: 03/21/17 08:04 Dose: Not Given Insulin Human Lispro (Humalog) 2 units SC ACD [facility] Last Admin: 03/20/17 18:40 Dose: 2 units Losartan Potassium (Cozaar) 25 mg PO DAILY [facility] Last Admin: 03/20/17 09:38 Dose: 25 mg (Victoza 1.8 Units) (Home Med) 1.8 units SUBCUT DAILY [facility] Oxychlorosene Sodium (Clorpactin Wcs-90) 2 gm TOP DAILY [facility] Last Admin: 03/20/17 12:54 Dose: 2 gm Pantoprazole Sodium (Protonix Ec Tab) 40 mg PO ACB [facility] Last Admin: 03/20/17 09:39 Dose: 40 mg Silver Sulfadiazine (Silvadene 1% 20 Gm) 0 ea TOP DAILY [facility] Last Admin: 03/20/17 09:40 Dose: Not Given - Labs Labs: 03/21/17 06:00 03/21/17 06:00 PT 11.0 Seconds (9.9-11.8) 03/19/17 10:33 INR 1.02 (0.93-1.08) 03/19/17 10:33 APTT 26.6 Seconds (23.7-30.8) 03/19/17 10:33 - Constitutional Appears: Non-toxic, No Acute Distress - Head Exam Head Exam: NORMAL INSPECTION - Neck Exam Neck Exam: absent: Meningismus - Respiratory Exam Respiratory Exam: Decreased Breath Sounds - Cardiovascular Exam Cardiovascular Exam: +S1, +S2 - GI/Abdominal Exam GI & Abdominal Exam: Soft. absent: Tenderness - Extremities Exam Additional comments: right foot with dressings in place Assessment and Plan - Assessment and Plan (Free Text) Plan: Assessment Right hallux infected ulcer,growing Staph aureus and gram negative bacilli - no evidence of osteomyelitis on MRI of the foot DM HTN dyslipidemia psoriasis history of wounds in the foot history of rib fractures due to trauma Plan continue Teflaro day 2; follow sensitivities of the Staph aureus and the identification and sensitivities of the gram negative bacilli in the wound will continue monitor clinically follow up Dr. Baron's re-evaluation
[2017-03-21] MEDS ORDERED: Propofol 10 mg/ml Inj (20 ML) ONE (16:33)
[2017-03-21] MEDS ORDERED: Midazolam 2 MG/2 ML VIAL ONE (16:34)
[2017-03-21] MEDS ORDERED: HYDROmorphone 0.5 mg/0.5 ml ISec IVP PRN (17:28)
[2017-03-21] MEDS ORDERED: Oxycodone/Acetaminophen 5/325 mg Tab PO PRN ×2 (17:29)
[2017-03-21] MEDS ORDERED: Sodium Chloride 0.9% 1,000 ML IV SCH (17:30)
--- NOTE | 2017-03-21 17:34 | PCM.SURG1 ---
Surgeon's Initial Post Op Note - Surgeon's Notes Surgeon: Dr. Baron DPM Property Specialist: Dr. Paredes DPM PGY-2 Type of Anesthesia: IV Sedation, Local Anesthesia Administered By: Dr. Bowers Pre-Operative Diagnosis: right hallux abscess/ulcer Operative Findings: see dication. I:10 mL 2% lidocaine plain Post-Operative Diagnosis: same Operation Performed: right hallux wound debridement with incision and drainage Specimen/Specimens Removed: right hallux necrotic tissue Estimated Blood Loss: EBL {In ML}: 1 Blood Products Given: N/A Drains Used: No Drains Post-Op Condition: Good Date of Surgery/Procedure: 03/21/17 Time of Surgery/Procedure: 04:45
--- NOTE | 2017-03-21 18:19 | PCM.OP ---
Operative Report - Operative Report Date of Surgery/Procedure: 03/21/17 Time of Surgery/Procedure: 16:30 Surgeon: Dr. Baron DPAndres Box Coverer Hand: Dr. Lena ZENDEJAS PGY-2 Anesthesia/Sedation: Dr. Bowers/IV sedation with local Pre-Operative Diagnosis: right hallux abscess and ulcer Post-Operative Diagnosis: same Indication for Surgery: The patient is a 72 year-old male with the above diagnoses. The patient has exhausted all conservative treatment at this time and now requires surgical intervention The patient signed the consent after careful explanation of risks, benefits, complication and alternatives for surgical procedure. No guarantees were given nor implied. Operative Findings: Preparation: The patient was brought into the operating room and placed on the operating room table in a supine position. Timeout was performed for identification of the correct patient and procedure. After induction of IV sedation, the patient received a total of 10 mL of 2% lidocaine plain in a venegas block fashion to the 1st metatarsal. Once local anesthesia was achieved, the right foot was then prepped and draped in normal sterile manner. No tourniquet was used during the procedure. Procedure: 1.Debridement with I and D of abscess of right foot. Attention was directed to the right hallux were necrotic tissue and ulceartion was noted. Utilizing a #15 blade the necrotic tissue overlying the right hallux was excisionally debrided down to subcutaneous tissue. All non-viable tissue that was removed using a #15 blade and pick ups and was passed off the field and sent for pathology. Attention was then directed to the lateral aspect hallux near the 1st webspace where an ulceration measuring approximately 0.5 cm by 0.5 cm by 4 cm was noted that tunneled from the dorsal aspect of the hallux proximally. The tunnel and abscess were explored and a dermal currette was used to remove the non-viable tissue. Next, using Misonix curette handle, on setting 7, the hallux was excisonaly debrided of all necrotic and non-viable tissue until fresh bleeding granular tissue appeared. The ulceration site and hallux were then irrigated copious amounts of normal sterile saline with gentamycin. The right hallux was then packed with 1/4 inch iodosorb packing, dressed with xeroform, DSD, and light MERLENE. Postoperative Condition: The patient tolerated the anesthesia and procedure well and was escorted to the recovery room with vital signs stable and neurovascular status intact to the right LE. Patient is to be partial weight bearing to the right lower extremity in a forefoot offloading shoe. Patient will continue to be followed while in house, and will follow up with Dr. Baron as an outpatient. Procedure/Operation Description: right hallux debridement and incison and drainage Estimated Blood Loss: 1 Complications: none Specimen: right hallux necrotic tissue Discharge & Condition: good
[2017-03-22] MEDS: ceFAZolin 2 GM in Sodium Chloride 0.9% 100 ML IVPB SCH ×3 (06:44→21:35)
[2017-03-22 06:48] LABS: BASO # 0.02 K/mm3 (0.0-2.0); BASO % 0.2 % (0.0-3.0); EOS # 0.3 (0.0-0.7); EOS % 2.3 % (1.5-5.0); GRAN # 8.49 (1.4-6.5); GRAN % 74.9 % (50.0-68.0); HEMOGLOBIN 12.3 gm/dL (14.0-18.0); LYMPH # 1.8 (1.2-3.4); LYMPH % 16.1 % (22.0-35.0); MEAN CELL VOLUME 90.3 fL (80.0-105.0); MEAN CORPUSCULAR HEMOGLOBIN 29.2 pg (25.0-35.0); MEAN CORPUSCULAR HGB CONC 32.4 g/dl (31.0-37.0); MEAN PLATELET VOLUME 9.3 fl (7.0-11.0); MONO # 0.7 (0.1-0.6); MONO % 6.5 % (1.0-6.0); PLATELET COUNT 246 10^3/uL (120.0-450.0); RBC 4.21 10^6/uL (3.5-6.1); RED CELL DISTRIBUTION WIDTH 13.6 % (11.5-14.5); WHITE BLOOD COUNT 11.3 10^3/ul (4.5-11.0)
[2017-03-22 07:20] LABS: ALB/GLOB RATIO 0.7 (1.1-1.8); ALT/SGPT 29 U/L (7-56); AST/SGOT 31 U/L (15-59); BILIRUBIN,DIRECT 0.4 mg/dL (0.0-0.4); BLOOD UREA NITROGEN 15 mg/dL (7-21); CALCIUM 8.8 mg/dL (8.4-10.5); GFR AFRICAN-AMERICAN > 60; GFR NON-AFRICAN AMERICAN 60; MAGNESIUM 1.9 mg/dL (1.7-2.2)
--- NOTE | 2017-03-22 07:43 | CP.PCM.PN ---
Subjective - Date & Time of Evaluation Date of Evaluation: 03/22/17 Time of Evaluation: 07:15 - Subjective Subjective: Patient seen and examined at bedside. No acute events overnight. Patient is resting comfortably in bed. States that the procedure went well. Offers no new complaints at this time. Denies fever, chills, chest pain, SOB, abdominal pain, N/V, diarrhea, constipation, and urinary symptoms. Objective - Vital Signs/Intake and Output Vital Signs (last 24 hours): Temp Pulse Resp BP Pulse Ox 99.0 F 68 20 158/77 H 98 03/21/17 18:13 03/21/17 18:13 03/21/17 18:13 03/21/17 18:13 03/21/17 18:13 Intake and Output: 03/22/17 03/22/17 06:59 18:59 Intake Total 240 Output Total 1400 Balance -1160 - Medications Medications: Current Medications Acetaminophen (Tylenol 325mg Tab) 650 mg PO Q6H PRN PRN Reason: Fever >100.4 F Atorvastatin Calcium (Lipitor) 10 mg PO DIN [facility] Last Admin: 03/20/17 18:40 Dose: 10 mg Heparin Sodium (Porcine) (Heparin) 5,000 units SC Q8 [facility] PRN Reason: Protocol Last Admin: 03/21/17 05:11 Dose: 5,000 units Sodium Chloride (Sodium Chloride 0.9%) 1,000 mls @ 80 mls/hr IV .[id number] [facility] Last Admin: 03/21/17 12:59 Dose: 80 mls/hr Cefazolin Sodium 2 gm/ Sodium (Chloride) 100 mls @ 200 mls/hr IVPB Q8 [facility] PRN Reason: Protocol Last Admin: 03/22/17 06:44 Dose: 200 mls/hr Insulin Detemir (Levemir) 20 unit SC AMHS [facility] Last Admin: 03/21/17 21:22 Dose: 20 unit Insulin Human Lispro (Humalog Med) 0 units SC AC [facility] PRN Reason: Protocol Last Admin: 03/21/17 16:44 Dose: Not Given Insulin Human Lispro (Humalog) 2 units SC ACBL [facility] Last Admin: 03/21/17 11:51 Dose: 2 units Insulin Human Lispro (Humalog) 2 units SC ACD [facility] Last Admin: 03/21/17 16:44 Dose: Not Given Losartan Potassium (Cozaar) 25 mg PO DAILY [facility] Last Admin: 03/21/17 09:20 Dose: 25 mg (Victoza 1.8 Units) (Home Med) 1.8 units SUBCUT DAILY [facility] Last Admin: 03/21/17 09:23 Dose: Not Given Ondansetron HCl (Zofran Inj) 4 mg IVP ONCE PRN PRN Reason: Nausea/Vomiting Oxychlorosene Sodium (Clorpactin Wcs-90) 2 gm TOP DAILY [facility] Last Admin: 03/21/17 09:50 Dose: 2 gm Oxycodone/Acetaminophen (Percocet 5/325 Mg Tab) 1 tab PO Q6H PRN PRN Reason: Pain, moderate (4-7) Stop: 03/24/17 17:30 Oxycodone/Acetaminophen (Percocet 5/325 Mg Tab) 2 tab PO Q6H PRN PRN Reason: Pain, severe (8-10) Stop: 03/24/17 17:30 Pantoprazole Sodium (Protonix Ec Tab) 40 mg PO ACB [facility] Last Admin: 03/21/17 08:46 Dose: 40 mg Silver Sulfadiazine (Silvadene 1% 20 Gm) 0 ea TOP DAILY [facility] Last Admin: 03/21/17 09:21 Dose: 1 unit - Labs Labs: 03/22/17 06:30 03/22/17 06:30 PT 11.0 Seconds (9.9-11.8) 03/19/17 10:33 INR 1.02 (0.93-1.08) 03/19/17 10:33 APTT 26.6 Seconds (23.7-30.8) 03/19/17 10:33 - Additional Findings Additional findings: - Constitutional Appears: Non-toxic, No Acute Distress - Head Exam Head Exam: ATRAUMATIC, NORMAL INSPECTION - Eye Exam Eye Exam: absent: Conjunctival injection - Neck Exam Neck exam: Negative for: Thyromegaly - Respiratory Exam Respiratory Exam: Clear to Auscultation Bilateral, NORMAL BREATHING PATTERN. absent: Rales, Rhonchi, Wheezes - Cardiovascular Exam Cardiovascular Exam: REGULAR RHYTHM, +S1, +S2 - GI/Abdominal Exam GI & Abdominal Exam: Soft. absent: Distended, Guarding, Rigid - Extremities Exam Additional comments: right foot s/p debridment and I&D - Neurological Exam Neurological exam: Alert, CN II-XII Intact, Oriented x3 Additional comments: patient is awake, alert, responds to verbal stimuli, answers questions appropriately, follows commands, and moves extremities past midline sensation decreased to touch in bilateral feet likely secondary to polyneuropathy due to diabetes muscle strength 5/5 throughout - Psychiatric Exam Psychiatric exam: Normal Affect, Normal Mood - Skin Skin Exam: Warm Additional comments: right foot bandaged Assessment and Plan - Assessment and Plan (Free Text) Assessment: Patient is a 72 year old male with PMHx of diabetes, hypertension, HPL, and is being admitted to the hospital day #4 under inpatient status for evaluation of a wound located on the 1st digit of the right foot. Plan: 1. Wound with leukocytosis details- 1st digit of right foot; PVD - wound culture- grew light gram negative rods and staph aureus - silver sulfadiazene - teflaro 400mg IV q12 - podiatry consult- pt went the OR yesterday for debridement and I&D. Podo recs - offloading forefoot shoe and follow up - IR was consulted by podiatry and are now following case- no vascular intervention needed at this time - ID consult - instructed to continue teflaro, - dry MRI of right foot reviewed-Cellulitis medial aspect of the big toe. No evidence of osteomyelitis - AM labs CBC, BMP, Mag, Phos 2. Edema, details right lower extremity- resovled - arterial doppler U/S bilateral read- limited study due to calcifcations - venous doppler left L- no DVTs 3. Diabetes - accu checks ACHS - Insulin levemir - Insulin lispro - Victoza - HgbA1c stat 4. HTN - hold home lisinopril- HCTZ - patient on cozar - add PRN hydralazine as SBP is elevated 5. HPL - continue home zocor, nonformulary, call placed to pharmacy- instructed to switch medication to lipitor 10mg - lipid panel stat 5. Psoriasis - hold home otezla, call placed to pharmacy, medication is nonformulary - may continue if brought from home, patient states he does not want to take medication at this time 7. Elevated Alkaline Phosphatase - LFTs reviewed 8. PPX - protonix - subq heparin Patient will be iscussed with attending, Dr. Greene
[2017-03-22] MEDS: Insulin Lispro (humaLOG) MEDIUM Coverage SC SCH ×3 (08:21→16:39)
[2017-03-22] MEDS: Insulin Lispro 1 UNITS/0.01 ML SC SCH ×3 (08:22→16:39)
--- NOTE | 2017-03-22 09:27 | CP.PCM.PN ---
<ParedesCharlotte - Last Filed: 03/22/17 09:21> Subjective - Date & Time of Evaluation Date of Evaluation: 03/22/17 Time of Evaluation: 09:22 - Subjective Subjective: 72 year old male was seen resting comfortably at bedside with attending, Dr. Baron, 1 day s/p right hallux wound debridement/I&D. Patient states he is feeling well this morning. NAD. Dressing is clean, dry, intact. He denies any n /v/f/c/sob/cp. Objective - Vital Signs/Intake and Output Vital Signs (last 24 hours): Temp Pulse Resp BP Pulse Ox 98.6 F 69 22 136/62 97 03/22/17 08:36 03/22/17 08:36 03/22/17 08:36 03/22/17 08:36 03/22/17 08:36 Intake and Output: 03/22/17 03/22/17 06:59 18:59 Intake Total 240 Output Total 1400 Balance -1160 - Medications Medications: Current Medications Acetaminophen (Tylenol 325mg Tab) 650 mg PO Q6H PRN PRN Reason: Fever >100.4 F Atorvastatin Calcium (Lipitor) 10 mg PO DIN [facility] Last Admin: 03/20/17 18:40 Dose: 10 mg Heparin Sodium (Porcine) (Heparin) 5,000 units SC Q8 [facility] PRN Reason: Protocol Last Admin: 03/21/17 05:11 Dose: 5,000 units Sodium Chloride (Sodium Chloride 0.9%) 1,000 mls @ 80 mls/hr IV .[id number] [facility] Last Admin: 03/21/17 12:59 Dose: 80 mls/hr Cefazolin Sodium 2 gm/ Sodium (Chloride) 100 mls @ 200 mls/hr IVPB Q8 [facility] PRN Reason: Protocol Last Admin: 03/22/17 06:44 Dose: 200 mls/hr Insulin Detemir (Levemir) 20 unit SC AMHS [facility] Last Admin: 03/21/17 21:22 Dose: 20 unit Insulin Human Lispro (Humalog Med) 0 units SC AC [facility] PRN Reason: Protocol Last Admin: 03/22/17 08:21 Dose: Not Given Insulin Human Lispro (Humalog) 2 units SC ACBL [facility] Last Admin: 03/22/17 08:22 Dose: Not Given Insulin Human Lispro (Humalog) 2 units SC ACD [facility] Last Admin: 03/21/17 16:44 Dose: Not Given Losartan Potassium (Cozaar) 25 mg PO DAILY [facility] Last Admin: 03/21/17 09:20 Dose: 25 mg (Victoza 1.8 Units) (Home Med) 1.8 units SUBCUT DAILY [facility] Last Admin: 03/21/17 09:23 Dose: Not Given Ondansetron HCl (Zofran Inj) 4 mg IVP ONCE PRN PRN Reason: Nausea/Vomiting Oxychlorosene Sodium (Clorpactin Wcs-90) 2 gm TOP DAILY [facility] Last Admin: 03/21/17 09:50 Dose: 2 gm Oxycodone/Acetaminophen (Percocet 5/325 Mg Tab) 1 tab PO Q6H PRN PRN Reason: Pain, moderate (4-7) Stop: 03/24/17 17:30 Oxycodone/Acetaminophen (Percocet 5/325 Mg Tab) 2 tab PO Q6H PRN PRN Reason: Pain, severe (8-10) Stop: 03/24/17 17:30 Pantoprazole Sodium (Protonix Ec Tab) 40 mg PO ACB [facility] Last Admin: 03/21/17 08:46 Dose: 40 mg Silver Sulfadiazine (Silvadene 1% 20 Gm) 0 ea TOP DAILY [facility] Last Admin: 03/21/17 09:21 Dose: 1 unit - Labs Labs: 03/22/17 06:30 03/22/17 06:30 PT 11.0 Seconds (9.9-11.8) 03/19/17 10:33 INR 1.02 (0.93-1.08) 03/19/17 10:33 APTT 26.6 Seconds (23.7-30.8) 03/19/17 10:33 - Constitutional Appears: Well, Non-toxic, No Acute Distress - Extremities Exam Additional comments: Right lower extremity focused exam: Vasc: DP and PT pulses non-palpable. TG WNL, CFT < 3 seconds to digits x9 Neuro: gross sensation diminished Ortho: No tenderness to palpation of right hallux Derm: Right hallux distal tip is cyanotic with decreased CFT, mixture of fibrotic and granular tissue noted circumfiertinally around the hallux, no malor noted. Skin around the right great toe is erythematous, no purulence, no drainage noted, the ulceration is noted to the hallux at the IPJ with the sinus tract. - Neurological Exam Neurological Exam: Alert, Awake, Oriented x3 - Psychiatric Exam Psychiatric exam: Normal Affect, Normal Mood Assessment and Plan - Assessment and Plan (Free Text) Assessment: 72 year old male 1 day s/p right hallux wound debridement/I&D Plan: patient examined and evaluated with attending, Dr. Baron chart, labs, vitals reviewed right hallux cleansed with normal sterile saline, dressed with vaseline gauze, DSD continue IV abx per ID pt may need 4-6 weeks of IV abx pending wound culture if toe re-necrosis pt will need amputation next week pt to start HBO therapy pt to PWB to heel in forefoot offloading shoe podiatry will continue to follow pt while in house <Eileen Baron - Last Filed: 03/25/17 17:28> Objective - Vital Signs/Intake and Output Vital Signs (last 24 hours): Temp Pulse Resp BP Pulse Ox 98.6 F 87 18 165/96 H 95 03/25/17 07:31 03/25/17 09:13 03/25/17 07:31 03/25/17 09:13 03/25/17 07:31 Intake and Output: 03/25/17 03/25/17 06:59 18:59 Intake Total 1980 1080 Output Total 400 Balance 1980 680 - Medications Medications: Current Medications Acetaminophen (Tylenol 325mg Tab) 650 mg PO Q6H PRN PRN Reason: Fever >100.4 F Atorvastatin Calcium (Lipitor) 10 mg PO DIN [facility] Last Admin: 03/24/17 17:56 Dose: 10 mg Heparin Sodium (Porcine) (Heparin) 5,000 units SC Q8 [facility] PRN Reason: Protocol Last Admin: 03/25/17 13:17 Dose: 5,000 units Sodium Chloride (Sodium Chloride 0.9%) 1,000 mls @ 80 mls/hr IV .[id number] [facility] Last Admin: 03/25/17 05:05 Dose: 80 mls/hr Cefazolin Sodium 2 gm/ Sodium (Chloride) 100 mls @ 200 mls/hr IVPB Q8 [facility] PRN Reason: Protocol Last Admin: 03/25/17 13:19 Dose: 200 mls/hr Insulin Detemir (Levemir) 25 unit SC AMHS [facility] Last Admin: 03/25/17 09:13 Dose: 25 unit Insulin Human Lispro (Humalog Med) 0 units SC AC [facility] PRN Reason: Protocol Last Admin: 03/25/17 12:20 Dose: 3 units Insulin Human Lispro (Humalog) 2 units SC ACBL [facility] Last Admin: 03/25/17 12:21 Dose: 2 units Insulin Human Lispro (Humalog) 2 units SC ACD [facility] Last Admin: 03/24/17 16:29 Dose: 2 units Losartan Potassium (Cozaar) 25 mg PO DAILY [facility] Last Admin: 03/25/17 09:13 Dose: 25 mg (Victoza 1.8 Units) (Home Med) 1.8 units SUBCUT DAILY [facility] Last Admin: 03/25/17 09:10 Dose: 1.8 units Ondansetron HCl (Zofran Inj) 4 mg IVP ONCE PRN PRN Reason: Nausea/Vomiting Pantoprazole Sodium (Protonix Ec Tab) 40 mg PO ACB [facility] Last Admin: 03/25/17 09:17 Dose: 40 mg Silver Sulfadiazine (Silvadene 1% 20 Gm) 0 ea TOP DAILY [facility] Last Admin: 03/24/17 10:46 Dose: 1 unit - Labs Labs: 03/25/17 05:40 03/25/17 05:40 PT 11.0 Seconds (9.9-11.8) 03/19/17 10:33 INR 1.02 (0.93-1.08) 03/19/17 10:33 APTT 26.6 Seconds (23.7-30.8) 03/19/17 10:33 Attending/Attestation - Attestation I have personally seen and examined this patient.: Yes I have fully participated in the care of the patient.: Yes I have reviewed all pertinent clinical information, including history, physical exam and plan: Yes
[2017-03-22] MEDS: Insulin Detemir 100 units/ml Vial (Levemir) SC SCH ×2 (10:04→22:00)
[2017-03-22] MEDS: Oxychlorosene Topical 2 gm Packet TOP SCH (10:05)
[2017-03-22] MEDS: Pantoprazole 40 mg EC Tab PO SCH (10:06)
[2017-03-22] MEDS: Silver Sulfadiazine 1% Cream (20 gm) TOP SCH (10:07)
[2017-03-22] MEDS: Sodium Chloride 0.9% 1,000 ML IV SCH (10:07)
[2017-03-22] MEDS ORDERED: Lidocaine 2% Inj (20ml) ONE (10:52)
--- NOTE | 2017-03-22 16:52 | VASCULAR ---
PROCEDURE: Ultrasound and fluoroscopically placed left upper extremity PICC line. HISTORY: Right great toe diabetic infection. Long-term IV antibiotics. Needs PICC line. PHYSICIAN(S): Riccardo Rodrigez MD. TECHNIQUE: The relative risks and indications of the procedure were explained to the patient and consent obtained. The patient was placed supine on the arteriogram table and the left arm prepped and draped in the usual sterile fashion. A tourniquet was applied to the left axilla. 1% Xylocaine was used to anesthetize the skin and soft tissues at the puncture site above the elbow. The left basilic vein was punctured under direct ultrasound guidance with a micropuncture set. A 0.018 guidewire was advanced centrally and used to measure the length to the SVC/RA junction. A 5 Maltese single-lumen PICC line 54 cm long was advanced to the SVC/RA junction. The catheter was flushed and secured. The patient tolerated the procedure well. IMPRESSION: 1. Ultrasound and fluoroscopically placed left upper extremity PICC line. A 5 Maltese single-lumen PICC line 54 cm long was advanced to the SVC/RA junction.
[2017-03-23] MEDS: ceFAZolin 2 GM in Sodium Chloride 0.9% 100 ML IVPB SCH ×3 (05:38→22:22)
[2017-03-23 07:01] LABS: ALB/GLOB RATIO 0.7 (1.1-1.8); ALT/SGPT 31 U/L (7-56); AST/SGOT 24 U/L (15-59); BILIRUBIN,DIRECT 0.3 mg/dL (0.0-0.4); BLOOD UREA NITROGEN 15 mg/dL (7-21); CALCIUM 8.7 mg/dL (8.4-10.5); GFR AFRICAN-AMERICAN > 60; GFR NON-AFRICAN AMERICAN 54; MAGNESIUM 1.8 mg/dL (1.7-2.2)
--- NOTE | 2017-03-23 07:34 | CP.PCM.PN ---
<Hilario Dumont - Last Filed: 03/23/17 10:03> Subjective - Date & Time of Evaluation Date of Evaluation: 03/23/17 Time of Evaluation: 07:25 - Subjective Subjective: Patient seen and examined at bedside. No acute events overnight. PICC line was placed yesterday afternoon and patient went for hyperbaric treatment. States that he is experiencing a headache which is described as a pressure in the bilateral temporal region. Requesting tylenol which is ordered PRN. Denies fever , chills, dizziness, chest pain, SOB, abdominal pain, N/V, diarrhea, constipation, and urinary symptoms. Objective - Vital Signs/Intake and Output Vital Signs (last 24 hours): Temp Pulse Resp BP Pulse Ox 99.0 F 76 20 157/87 H 95 03/23/17 00:04 03/23/17 00:04 03/23/17 00:04 03/23/17 00:04 03/23/17 00:30 Intake and Output: 03/23/17 03/23/17 06:59 18:59 Intake Total 1820 Output Total 1500 Balance 320 - Medications Medications: Current Medications Acetaminophen (Tylenol 325mg Tab) 650 mg PO Q6H PRN PRN Reason: Fever >100.4 F Atorvastatin Calcium (Lipitor) 10 mg PO DIN [facility] Last Admin: 03/20/17 18:40 Dose: 10 mg Heparin Sodium (Porcine) (Heparin) 5,000 units SC Q8 [facility] PRN Reason: Protocol Last Admin: 03/23/17 05:38 Dose: 5,000 units Sodium Chloride (Sodium Chloride 0.9%) 1,000 mls @ 80 mls/hr IV .[id number] [facility] Last Admin: 03/22/17 10:07 Dose: 80 mls/hr Cefazolin Sodium 2 gm/ Sodium (Chloride) 100 mls @ 200 mls/hr IVPB Q8 [facility] PRN Reason: Protocol Last Admin: 03/23/17 05:38 Dose: 200 mls/hr Insulin Detemir (Levemir) 25 unit SC AMHS [facility] Last Admin: 03/22/17 22:00 Dose: Not Given Insulin Human Lispro (Humalog Med) 0 units SC AC [facility] PRN Reason: Protocol Last Admin: 03/22/17 16:39 Dose: Not Given Insulin Human [facility] ([facility]alog) [facility] Last Admin: 03/22/17 11:42 Dose: Not Given Insulin Human Lispro (Humalog) 2 units SC ACD [facility] Last Admin: 03/22/17 16:39 Dose: Not Given Losartan Potassium (Cozaar) 25 mg PO DAILY [facility] Last Admin: 03/22/17 10:06 Dose: 25 mg (Victoza 1.8 Units) (Home Med) 1.8 units SUBCUT DAILY [facility] Last Admin: 03/22/17 10:07 Dose: 1.8 units Ondansetron HCl (Zofran Inj) 4 mg IVP ONCE PRN PRN Reason: Nausea/Vomiting Oxychlorosene Sodium (Clorpactin Wcs-90) 2 gm TOP DAILY [facility] Last Admin: 03/22/17 10:05 Dose: 2 gm Oxycodone/Acetaminophen (Percocet 5/325 Mg Tab) 1 tab PO Q6H PRN PRN Reason: Pain, moderate (4-7) Stop: 03/24/17 17:30 Oxycodone/Acetaminophen (Percocet 5/325 Mg Tab) 2 tab PO Q6H PRN PRN Reason: Pain, severe (8-10) Stop: 03/24/17 17:30 Pantoprazole Sodium (Protonix Ec Tab) 40 mg PO ACB [facility] Last Admin: 03/22/17 10:06 Dose: 40 mg Silver Sulfadiazine (Silvadene 1% 20 Gm) 0 ea TOP DAILY [facility] Last Admin: 03/22/17 10:07 Dose: 1 unit - Labs Labs: 03/22/17 06:30 03/23/17 06:00 PT 11.0 Seconds (9.9-11.8) 03/19/17 10:33 INR 1.02 (0.93-1.08) 03/19/17 10:33 APTT 26.6 Seconds (23.7-30.8) 03/19/17 10:33 - Additional Findings Additional findings: - Constitutional Appears: Non-toxic, No Acute Distress - Head Exam Head Exam: ATRAUMATIC, NORMAL INSPECTION - Eye Exam Eye Exam: absent: Conjunctival injection - Neck Exam Neck exam: Negative for: Thyromegaly - Respiratory Exam Respiratory Exam: Clear to Auscultation Bilateral, NORMAL BREATHING PATTERN. absent: Rales, Rhonchi, Wheezes - Cardiovascular Exam Cardiovascular Exam: REGULAR RHYTHM, +S1, +S2 - GI/Abdominal Exam GI & Abdominal Exam: Soft. absent: Distended, Guarding, Rigid - Extremities Exam Additional comments: right foot 1st digit s/p debridment and I&D - Neurological Exam Neurological exam: Alert, CN II-XII Intact, Oriented x3 Additional comments: patient is awake, alert, responds to verbal stimuli, answers questions appropriately, follows commands, and moves extremities past midline sensation decreased to touch in bilateral feet likely secondary to polyneuropathy due to diabetes muscle strength 5/5 throughout - Psychiatric Exam Psychiatric exam: Normal Affect, Normal Mood - Skin Skin Exam: Warm Additional comments: right foot 1st digit bandaged Assessment and Plan - Assessment and Plan (Free Text) Assessment: Patient is a 72 year old male with PMHx of diabetes, hypertension, HPL, and is being admitted to the hospital day #5 under inpatient status for evaluation of a wound located on the 1st digit of the right foot. Plan: 1. Wound with leukocytosis details- 1st digit of right foot; PVD - wound culture- grew light gram negative rods and staph aureus - silver sulfadiazene - continue ancef - podiatry consult- pt went the OR 2 days ago for debridement and I&D. Podo recs - offloading forefoot shoe and follow up, if toe experiences renecrosis it may need to be amputated - pain control- oxycodone - IR was consulted by podiatry and are now following case- no vascular intervention needed at this time - ID consult - PICC line placed yesterday afternoon for outpatient antibiotics - dry MRI of right foot reviewed-Cellulitis medial aspect of the big toe. No evidence of osteomyelitis - AM labs CBC, BMP, Mag, Phos 2. Edema, details right lower extremity- resovled - arterial doppler U/S bilateral read- limited study due to calcifcations - venous doppler left L- no DVTs 3. Diabetes - accu checks ACHS - Insulin levemir - Insulin lispro - Victoza - HgbA1c stat 4. HTN - hold home lisinopril- HCTZ - patient on cozar - add PRN hydralazine as SBP is elevated 5. HPL - continue home zocor, nonformulary, call placed to pharmacy- instructed to switch medication to lipitor 10mg - lipid panel stat 5. Psoriasis - hold home otezla, call placed to pharmacy, medication is nonformulary - may continue if brought from home, patient states he does not want to take medication at this time 7. Elevated Alkaline Phosphatase - LFTs reviewed 8. PPX - protonix - subq heparin Patient will be iscussed with attending, Dr. Greene <Greta Rivas V - Last Filed: 03/25/17 10:36> Objective - Vital Signs/Intake and Output Vital Signs (last 24 hours): Temp Pulse Resp BP Pulse Ox 98.6 F 87 18 165/96 H 95 03/25/17 07:31 03/25/17 09:13 03/25/17 07:31 03/25/17 09:13 03/25/17 07:31 Intake and Output: 03/25/17 03/25/17 06:59 18:59 Intake Total 1979 120 Output Total 400 Balance 1979 -280 - Medications Medications: Current Medications Acetaminophen (Tylenol 325mg Tab) 650 mg PO Q6H PRN PRN Reason: Fever >100.4 F Atorvastatin Calcium (Lipitor) 10 mg PO DIN [facility] Last Admin: 03/24/17 17:56 Dose: 10 mg Heparin Sodium (Porcine) (Heparin) 5,000 units SC Q8 [facility] PRN Reason: Protocol Last Admin: 03/25/17 05:05 Dose: 5,000 units Sodium Chloride (Sodium Chloride 0.9%) 1,000 mls @ 80 mls/hr IV .[id number] [facility] Last Admin: 03/25/17 05:05 Dose: 80 mls/hr Cefazolin Sodium 2 gm/ Sodium (Chloride) 100 mls @ 200 mls/hr IVPB Q8 [facility] PRN Reason: Protocol Last Admin: 03/25/17 05:05 Dose: 200 mls/hr Insulin Detemir (Levemir) 25 unit SC AMHS [facility] Last Admin: 03/25/17 09:13 Dose: 25 unit Insulin Human Lispro (Humalog Med) 0 units SC AC [facility] PRN Reason: Protocol Last Admin: 03/25/17 07:28 Dose: Not Given Insulin Human Lispro (Humalog) 2 units SC ACBL [facility] Last Admin: 03/25/17 07:28 Dose: Not Given Insulin Human Lispro (Humalog) 2 units SC ACD [facility] Last Admin: 03/24/17 16:29 Dose: 2 units Losartan Potassium (Cozaar) 25 mg PO DAILY [facility] Last Admin: 03/25/17 09:13 Dose: 25 mg (Victoza 1.8 Units) (Home Med) 1.8 units SUBCUT DAILY [facility] Last Admin: 03/25/17 09:10 Dose: 1.8 units Ondansetron HCl (Zofran Inj) 4 mg IVP ONCE PRN PRN Reason: Nausea/Vomiting Pantoprazole Sodium (Protonix Ec Tab) 40 mg PO ACB [facility] Last Admin: 03/25/17 09:17 Dose: 40 mg Silver Sulfadiazine (Silvadene 1% 20 Gm) 0 ea TOP DAILY [facility] Last Admin: 03/24/17 10:46 Dose: 1 unit - Labs Labs: 03/25/17 05:40 03/25/17 05:40 PT 11.0 Seconds (9.9-11.8) 03/19/17 10:33 INR 1.02 (0.93-1.08) 03/19/17 10:33 APTT 26.6 Seconds (23.7-30.8) 03/19/17 10:33
[2017-03-23] MEDS: Insulin Lispro (humaLOG) MEDIUM Coverage SC SCH ×3 (08:56→17:39)
[2017-03-23] MEDS: Insulin Lispro 1 UNITS/0.01 ML SC SCH ×3 (08:57→17:39)
[2017-03-23 09:02] LABS: BASO # 0.02 K/mm3 (0.0-2.0); BASO % 0.2 % (0.0-3.0); EOS # 0.2 (0.0-0.7); EOS % 2.1 % (1.5-5.0); GRAN # 8.04 (1.4-6.5); GRAN % 72.8 % (50.0-68.0); HEMOGLOBIN 12.2 gm/dL (14.0-18.0); MEAN CELL VOLUME 91.1 fL (80.0-105.0); MEAN CORPUSCULAR HEMOGLOBIN 29.3 pg (25.0-35.0); MEAN CORPUSCULAR HGB CONC 32.1 g/dl (31.0-37.0); MEAN PLATELET VOLUME 9.7 fl (7.0-11.0); MONO # 0.8 (0.1-0.6); MONO % 6.9 % (1.0-6.0); PLATELET COUNT 235 10^3/uL (120.0-450.0); RBC 4.17 10^6/uL (3.5-6.1); RED CELL DISTRIBUTION WIDTH 13.6 % (11.5-14.5)
[2017-03-23] MEDS: Pantoprazole 40 mg EC Tab PO SCH (09:05)
[2017-03-23] MEDS: Insulin Detemir 100 units/ml Vial (Levemir) SC SCH (09:16)
[2017-03-23] MEDS: Oxychlorosene Topical 2 gm Packet TOP SCH (09:16)
--- NOTE | 2017-03-23 09:16 | CON ---
I was asked by Dr. Baron, the office administrator, to do a hyperbaric oxygen evaluation on this young man to see if he qualifies. HISTORY OF PRESENT ILLNESS: He is a 72-year-old man who presents with a wound on the first toe of the right foot. He had a callus that would not go away, now he is in the hospital for IV antibiotics and treatment, and now they feel that they need hyperbaric oxygen to help him heal. PAST MEDICAL HISTORY: Hypertension, high cholesterol, diabetes, psoriasis, foot wounds, rib fractures secondary to a traumatic injury. PAST SURGICAL HISTORY: Cholecystectomy, inguinal hernia repair. SOCIAL HISTORY: Denies alcohol. Former smoker, quit 50 years ago. No drug use. FAMILY HISTORY: Hypertension and diabetes. ALLERGIES: HE HAS ALLERGIES TO STREWBERRIES AND KIWIS. MEDICATIONS: He has a medication list that he is on now of Victoza, cefazolin, Clorpactin, Cozaar, heparin, insulin, Humalog, Levemir, Lipitor, Percocet, Protonix, Silvadene cream, IV fluids, Tylenol and Zofran. REVIEW OF SYSTEMS: No acute vision changes or hearing changes. No sore throat. No neck pain. No chest pain. No shortness of breath. No abdominal pain. He is having a right first toe ulcer that is nonhealing and not going away. He is on IV antibiotics. PHYSICAL EXAMINATION VITAL SIGNS: At this time, he has 99 temperature, 68 pulse, 158/77 blood pressure, 20 respiratory rate, 98% O2 sat on 3 liters nasal cannula. HEENT: Head is atraumatic and normocephalic. Extraocular muscles are intact. Both ear canals are open. TMs are seen, no infection, they are clear. Throat is moist, no erythema. NECK: Supple. No JVD. HEART: Regular rate. LUNGS: Decreased breath sounds palpated on auscultation. ABDOMEN: Soft. Positive bowel sounds. Nontender, obese. No guarding, no rebound and no CVA tenderness. EXTREMITIES: His right foot is bandaged. He has got a first toe nonhealing ulcer. NEUROLOGIC: He is alert and oriented x3, he has good mood, not anxious, not depressed. Occasional numbness in the extremities from time to time. LABORATORY DATA: He has an 11.3 white count, 12.3 hemoglobin, 38 hematocrit with platelets of 246. INR is 1.02. He has 137 sodium, potassium is 4.2, BUN is 15, creatinine 1.2. GFR is greater than 60. Sugar is 171. Calcium is 8.8, phosphorus 2.8, magnesium 1.9. Total bili is 0.5, AST is 31, ALT is 29, alkaline phosphatase 168, total protein is 7.3, albumin is 3. Urine is clear. Negative hepatitis and negative HIV. He had a chest x-ray, no acute disease. On his EKG, he has normal sinus rhythm. 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 Reagan Mendez DO
[2017-03-23] MEDS: Silver Sulfadiazine 1% Cream (20 gm) TOP SCH (10:34)
--- NOTE | 2017-03-23 11:51 | CP.PCM.PN ---
<Charlotte Pareeds - Last Filed: 03/23/17 11:48> Subjective - Date & Time of Evaluation Date of Evaluation: 03/23/17 Time of Evaluation: 11:48 - Subjective Subjective: 72 year old male was seen resting comfortably at bedside with attending, Dr. Baron, 2 day s/p right hallux wound debridement/I&D. Patient states he is feeling well this morning. NAD. Dressing is clean, dry, intact. He states that he has started his HBO therapy and got his PICC yesterday. He denies any n/v/f/c /sob/cp. Objective - Vital Signs/Intake and Output Vital Signs (last 24 hours): Temp Pulse Resp BP Pulse Ox 98.5 F 76 19 163/87 H 96 03/23/17 09:17 03/23/17 09:17 03/23/17 09:17 03/23/17 09:17 03/23/17 09:17 Intake and Output: 03/23/17 03/23/17 06:59 18:59 Intake Total 1820 Output Total 1500 Balance 320 - Medications Medications: Current Medications Acetaminophen (Tylenol 325mg Tab) 650 mg PO Q6H PRN PRN Reason: Fever >100.4 F Atorvastatin Calcium (Lipitor) 10 mg PO DIN [facility] Last Admin: 03/20/17 18:40 Dose: 10 mg Heparin Sodium (Porcine) (Heparin) 5,000 units SC Q8 [facility] PRN Reason: Protocol Last Admin: 03/23/17 05:38 Dose: 5,000 units Sodium Chloride (Sodium Chloride 0.9%) 1,000 mls @ 80 mls/hr IV .[id number] [facility] Last Admin: 03/22/17 10:07 Dose: 80 mls/hr Cefazolin Sodium 2 gm/ Sodium (Chloride) 100 mls @ 200 mls/hr IVPB Q8 [facility] PRN Reason: Protocol Last Admin: 03/23/17 05:38 Dose: 200 mls/hr Insulin Detemir (Levemir) 25 unit SC AMHS [facility] Last Admin: 03/23/17 09:16 Dose: 25 unit Insulin Human Lispro (Humalog Med) 0 units SC AC [facility] PRN Reason: Protocol Last Admin: 03/23/17 08:56 Dose: Not Given [facility] Admin: 03/23/17 08:57 Dose: Not Given Insulin Human Lispro (Humalog) 2 units SC ACD [facility] Last Admin: 03/22/17 16:39 Dose: Not Given Losartan Potassium (Cozaar) 25 mg PO DAILY [facility] Last Admin: 03/23/17 09:16 Dose: 25 mg (Victoza 1.8 Units) (Home Med) 1.8 units SUBCUT DAILY [facility] Last Admin: 03/23/17 10:34 Dose: 1.8 units Ondansetron HCl (Zofran Inj) 4 mg IVP ONCE PRN PRN Reason: Nausea/Vomiting Oxychlorosene Sodium (Clorpactin Wcs-90) 2 gm TOP DAILY [facility] Last Admin: 03/23/17 09:16 Dose: 2 gm Oxycodone/Acetaminophen (Percocet 5/325 Mg Tab) 1 tab PO Q6H PRN PRN Reason: Pain, moderate (4-7) Stop: 03/24/17 17:30 Oxycodone/Acetaminophen (Percocet 5/325 Mg Tab) 2 tab PO Q6H PRN PRN Reason: Pain, severe (8-10) Stop: 03/24/17 17:30 Pantoprazole Sodium (Protonix Ec Tab) 40 mg PO ACB [facility] Last Admin: 03/23/17 09:05 Dose: 40 mg Silver Sulfadiazine (Silvadene 1% 20 Gm) 0 ea TOP DAILY [facility] Last Admin: 03/23/17 10:34 Dose: 1 unit - Labs Labs: 03/23/17 06:00 03/23/17 06:00 PT 11.0 Seconds (9.9-11.8) 03/19/17 10:33 INR 1.02 (0.93-1.08) 03/19/17 10:33 APTT 26.6 Seconds (23.7-30.8) 03/19/17 10:33 - Constitutional Appears: Non-toxic, No Acute Distress - Extremities Exam Additional comments: Right lower extremity focused exam: Vasc: DP and PT pulses non-palpable. TG WNL, CFT < 3 seconds to digits x9 Neuro: gross sensation diminished Ortho: No tenderness to palpation of right hallux Derm: Right hallux distal tip is cyanotic with decreased CFT. There is a mixture of fibrotic and granular tissue noted circumfiertinally around the hallux, no malodor noted. Skin around the right great toe is erythematous, no purulence, no drainage noted, the ulceration is noted to the hallux at the IPJ with the sinus tract probing approxmately 4 cm proximally. - Neurological Exam Neurological Exam: Alert, Awake, Oriented x3 - Psychiatric Exam Psychiatric exam: Normal Affect, Normal Mood Assessment and Plan - Assessment and Plan (Free Text) Assessment: 72 year old male 1 day s/p right hallux wound debridement/I&D Plan: patient examined and evaluated with attending, Dr. Baron chart, labs, vitals reviewed;afebrile, WBC 11 right hallux packed with 1/4 inch iodoform packing, dressed with polymem continue IV abx per ID pt may need 4-6 weeks of IV abx pending wound culture if toe re-necrosis pt will need amputation next week pt to continue HBO therapy pt to continue PT pt to PWB to heel in forefoot offloading shoe podiatry will continue to follow pt while in house <Eileen Baron - Last Filed: 03/25/17 18:35> Objective - Vital Signs/Intake and Output Vital Signs (last 24 hours): Temp Pulse Resp BP Pulse Ox 98.6 F 87 18 165/96 H 95 03/25/17 07:31 03/25/17 09:13 03/25/17 07:31 03/25/17 09:13 03/25/17 07:31 Intake and Output: 03/25/17 03/25/17 06:59 18:59 Intake Total 1980 1080 Output Total 400 Balance 1980 680 - Medications Medications: Current Medications Acetaminophen (Tylenol 325mg Tab) 650 mg PO Q6H PRN PRN Reason: Fever >100.4 F Atorvastatin Calcium (Lipitor) 10 mg PO DIN [facility] Last Admin: 03/25/17 17:27 Dose: 10 mg Heparin Sodium (Porcine) (Heparin) 5,000 units SC Q8 [facility] PRN Reason: Protocol Last Admin: 03/25/17 13:17 Dose: 5,000 units Sodium Chloride (Sodium Chloride 0.9%) 1,000 mls @ 80 mls/hr IV .[id number] [facility] Last Admin: 03/25/17 05:05 Dose: 80 mls/hr Cefazolin Sodium 2 gm/ Sodium (Chloride) 100 mls @ 200 mls/hr IVPB Q8 [facility] PRN Reason: Protocol Last Admin: 03/25/17 13:19 Dose: 200 mls/hr Insulin Detemir (Levemir) 25 unit SC AMHS [facility] Last Admin: 03/25/17 09:13 Dose: 25 unit Insulin Human Lispro (Humalog Med) 0 units SC AC [facility] PRN Reason: Protocol Last Admin: 03/25/17 17:23 Dose: Not Given Insulin Human Lispro (Humalog) 2 units SC ACBL [facility] Last Admin: 03/25/17 12:21 Dose: 2 units Insulin Human Lispro (Humalog) 2 units SC ACD [facility] Last Admin: 03/25/17 17:23 Dose: Not Given Losartan Potassium (Cozaar) 25 mg PO DAILY [facility] Last Admin: 03/25/17 09:13 Dose: 25 mg (Victoza 1.8 Units) (Home Med) 1.8 units SUBCUT DAILY [facility] Last Admin: 03/25/17 09:10 Dose: 1.8 units Ondansetron HCl (Zofran Inj) 4 mg IVP ONCE PRN PRN Reason: Nausea/Vomiting Pantoprazole Sodium (Protonix Ec Tab) 40 mg PO ACB [facility] Last Admin: 03/25/17 09:17 Dose: 40 mg Silver Sulfadiazine (Silvadene 1% 20 Gm) 0 ea TOP DAILY [facility] Last Admin: 03/25/17 17:24 Dose: Not Given - Labs Labs: 03/25/17 05:40 03/25/17 05:40 PT 11.0 Seconds (9.9-11.8) 03/19/17 10:33 INR 1.02 (0.93-1.08) 03/19/17 10:33 APTT 26.6 Seconds (23.7-30.8) 03/19/17 10:33 Attending/Attestation - Attestation I have personally seen and examined this patient.: Yes I have fully participated in the care of the patient.: Yes I have reviewed all pertinent clinical information, including history, physical exam and plan: Yes
--- NOTE | 2017-03-23 15:53 | CP.PCM.PN ---
Subjective - Date & Time of Evaluation Date of Evaluation: 03/23/17 Time of Evaluation: 11:25 - Subjective Subjective: Comfortable, afebrile, not in distress. Objective - Vital Signs/Intake and Output Vital Signs (last 24 hours): Temp Pulse Resp BP Pulse Ox 99.0 F 68 20 158/77 H 98 03/21/17 18:13 03/21/17 18:13 03/21/17 18:13 03/21/17 18:13 03/21/17 18:13 Intake and Output: 03/21/17 03/22/17 18:59 06:59 Intake Total 0 Balance 0 - Medications Medications: Current Medications Acetaminophen (Tylenol 325mg Tab) 650 mg PO Q6H PRN PRN Reason: Fever >100.4 F Atorvastatin Calcium (Lipitor) 10 mg PO DIN [facility] Last Admin: 03/20/17 18:40 Dose: 10 mg Heparin Sodium (Porcine) (Heparin) 5,000 units SC Q8 [facility] PRN Reason: Protocol Last Admin: 03/21/17 05:11 Dose: 5,000 units Sodium Chloride (Sodium Chloride 0.9%) 1,000 mls @ 80 mls/hr IV .[id number] [facility] Last Admin: 03/21/17 12:59 Dose: 80 mls/hr Cefazolin Sodium 2 gm/ Sodium (Chloride) 100 mls @ 200 mls/hr IVPB Q8 [facility] PRN Reason: Protocol Insulin Detemir (Levemir) 20 unit SC AMHS [facility] Last Admin: 03/21/17 21:22 Dose: 20 unit Insulin Human Lispro (Humalog Med) 0 units SC AC [facility] PRN Reason: Protocol Last Admin: 03/21/17 16:44 Dose: Not Given Insulin Human Lispro (Humalog) 2 units SC ACBL [facility] Last Admin: 03/21/17 11:51 Dose: 2 units Insulin Human Lispro (Humalog) 2 units SC ACD [facility] Last Admin: 03/21/17 16:44 Dose: Not Given Losartan Potassium (Cozaar) 25 mg PO DAILY [facility] Last Admin: 03/21/17 09:20 Dose: 25 mg (Victoza 1.8 Units) (Home Med) 1.8 units SUBCUT DAILY [facility] Last Admin: 03/21/17 09:23 Dose: Not Given Ondansetron HCl (Zofran Inj) 4 mg IVP ONCE PRN PRN Reason: Nausea/Vomiting Oxychlorosene Sodium (Clorpactin Wcs-90) 2 gm TOP DAILY [facility] Last Admin: 03/21/17 09:50 Dose: 2 gm Oxycodone/Acetaminophen (Percocet 5/325 Mg Tab) 1 tab PO Q6H PRN PRN Reason: Pain, moderate (4-7) Stop: 03/24/17 17:30 Oxycodone/Acetaminophen (Percocet 5/325 Mg Tab) 2 tab PO Q6H PRN PRN Reason: Pain, severe (8-10) Stop: 03/24/17 17:30 Pantoprazole Sodium (Protonix Ec Tab) 40 mg PO ACB [facility] Last Admin: 03/21/17 08:46 Dose: 40 mg Silver Sulfadiazine (Silvadene 1% 20 Gm) 0 ea TOP DAILY [facility] Last Admin: 03/21/17 09:21 Dose: 1 unit - Labs Labs: 03/21/17 06:00 03/21/17 06:00 PT 11.0 Seconds (9.9-11.8) 03/19/17 10:33 INR 1.02 (0.93-1.08) 03/19/17 10:33 APTT 26.6 Seconds (23.7-30.8) 03/19/17 10:33 - Constitutional Appears: Non-toxic, No Acute Distress - Head Exam Head Exam: NORMAL INSPECTION - Neck Exam Neck Exam: absent: Meningismus - Respiratory Exam Respiratory Exam: Decreased Breath Sounds - Cardiovascular Exam Cardiovascular Exam: +S1, +S2 - GI/Abdominal Exam GI & Abdominal Exam: Soft. absent: Tenderness - Extremities Exam Additional comments: right foot with dressings in place Assessment and Plan - Assessment and Plan (Free Text) Plan: Assessment Right hallux infected ulcer,growing methicillin-sensitive Staph aureus and Raoultella - no evidence of osteomyelitis on MRI of the foot DM HTN dyslipidemia psoriasis history of wounds in the foot history of rib fractures due to trauma Plan continue cefazolin day 4 - patient to be followed up at the wound center to ascertain duration of treatment
--- NOTE | 2017-03-23 17:05 | PN ---
DATE: 03/22/2017 SUBJECTIVE: The patient in bed, in no acute distress. Nontoxic. PHYSICAL EXAMINATION VITAL SIGNS: Temperature was 99, blood pressure was 130/60, respiratory rate of 22. HEENT: Unremarkable. NECK: Supple. LUNGS: Decreased breath sounds. HEART: Normal S1 and S2. ABDOMEN: Soft, nontender. LABORATORY EXAMINATION: [place] [address], hemoglobin of 12. Chemistries are noted, BUN of 15, creatinine of 1.2. Urinalysis is noted. Microbiology is noted. Right foot culture is reviewed. Review of orders reveal the patient is on Ancef. ASSESSMENT AND PLAN: He is a 72-year-old male with right hallux infected ulcer growing Staphylococcus and gram-negative carri, no evidence of *------*, on Ancef. We will follow closely with you. Jesús Hu MD
[2017-03-23 19:14] LABS: GLYCOMARK(R) 2.9 mcg/mL (7.3-36.6)
--- NOTE | 2017-03-23 21:25 | PN ---
DATE OF SERVICE: 03/22/2017 SUBJECTIVE: The patient is seen in room #367, bed #2. The patient is out of bed to recliner. The patient is awake, responsive. The patient is awaiting for a PICC line placement. The patient underwent right foot big toe surgery. PHYSICAL EXAMINATION: VITAL SIGNS: T-max is 99.0. Pulse is .67 to 69. Blood pressure is 138/69, 158/77, and 164/72. Respiration 18 to 20. O2 saturation 98% to 99%. HEAD: Normocephalic, atraumatic. HEENT: Shows pinkish conjunctivae, anicteric sclerae. No oropharyngeal lesion. NECK: No neck rigidity. CHEST: Kyphosis. LUNGS: Show no rales, crackles, or wheezing. CARDIOVASCULAR: S1 and S2. Regular rhythm. ABDOMEN: Protuberant, positive bowel sounds. GENITALIA: Male. RECTAL: Deferred. EXTREMITIES: Right foot positive dressing noted. SKIN: Positive skin lesions of psoriasis noted on the knees,elbows, and arms. MUSCULOSKELETAL: Shows a body mass index of 35.3. NEUROLOGIC: The patient is awake, alert, oriented x3. Cranial nerve II through XII intact. Motor strength is 5/5. Gait examination is not tested. DIAGNOSTIC DATA: On 03/22/2017, WBC is 11.3, hemoglobin and hematocrit 12.3 and 38, platelets 246. Granulocytes, 75% segs. Sodium 137, potassium 4.2, chloride 102, CO2 29, anion gap 10, BUN 15, creatinine 1.2, GFR greater than 60, glucose 190 to 235, calcium is 8.8, phosphorous 2.8, magnesium 1.8, alkaline phosphatase 168, vitamin D 25-hydroxy is 22. Procalcitonin level is negative. Lactic acid is 1.3 which is normal. Hepatitis A, B, C, and HIV negative. Wound cultures are growing Raoultella ornithinolytica and Staphylococcus aureus. Blood and urine cultures are negative. Blood type is O positive. The patient had a left upper extremity PICC line placement. IMPRESSION: 1. Right big toe hallux abscess and diabetic ulceration. 2. Status post incision and debridement of the right big toe hallux abscess and diabetic foot ulcer, status post incision and drainage. 3. Hypertension. 4. History of psoriasis. 5. Insulin-requiring diabetes mellitus. 6. Obesity with elevated body mass index of 35. 7. Leukocytosis with granulocytosis. 8. Elevated erythrocyte sedimentation rate. 9. Mild normocytic anemia. 10. Hyperglycemia with uncontrolled insulin-requiring diabetes mellitus with hemoglobin A1c of 9.7. 11. Elevated C-reactive protein of greater than 15. 12. Hypovitaminosis D. 13. Uncontrolled diabetes mellitus with elevated fructosamine of 305 and hemoglobin A1c of 9.7. 14. Glycosuria. 15. Right foot great toe Raoultella ornithinolytica and Staphylococcus aureus, right foot great toe abscess and diabetic ulceration. 16. Status post left upper extremity peripherally inserted central catheter line placement. 17. Right foot first proximal phalanx subcutaneous edema with cellulitis. 18. First and fifth metatarsal cystic degenerative changes. 19. Left tibial occlusive peripheral vascular disease. 20. Deconditioning. 21. History of dyslipidemia. 22. Old right-sided rib fracture. 23. Nonhealing right big toe diabetic ulceration, cellulitis, and abscess. 24. Right foot arthrosis. 25. Questionable nondisplaced right trabecular fracture with plantar osteophyte. 26. Hypovitaminosis D. PLAN: At this time, the patient is seen by Podiatry, recommended at least 4 to 6 weeks of IV antibiotic. The patient was seen by Case Management. The patient is presently on following medications: 1. Ancef 2 g IV q. 8 hours, started today by Dr. Hernández. 2. Clorpactin 2 g daily. 3. Cozaar 25 mg daily. 4. Heparin 5000 subcutaneous unit q. 8. 5. Humalog 2 units before breakfast and lunch and Humalog 2 units with dinner. 6.. Humalog medium-dose sliding scale coverage. 7.. Levemir 20 units in the morning and at bedtime. 8. Lipitor 10 mg daily. 9. The patient is started on Percocet 1 to 2 tablets q. 6 p.r.n. 10. Protonix 40 daily. 11. Silvadene cream to the affected area. 12.. IV fluid 0.9 normal saline at 80 mL. 13. Tylenol 650 q. 6 p.r.n. 14. Victoza 1.8 units subcutaneous daily. 15. Zofran 4 mg IV q. 4 p.r.n. Since the patient's blood sugar has been uncontrolled, the patient's Levemir will be adjusted to 25 units with breakfast and 25 units in the bedtime starting today. At present, the patient is going to be evaluated by [employer], Case Management, for discharge planning. [facility] Amrit Greene MD
[2017-03-24] MEDS: Insulin Detemir 100 units/ml Vial (Levemir) SC SCH ×3 (02:29→21:36)
[2017-03-24 05:58] LABS: BASO # 0.01 K/mm3 (0.0-2.0); BASO % 0.1 % (0.0-3.0); EOS # 0.1 (0.0-0.7); EOS % 0.8 % (1.5-5.0); GRAN # 9.63 (1.4-6.5); GRAN % 80.6 % (50.0-68.0); HEMOGLOBIN 12.4 gm/dL (14.0-18.0); LYMPH # 1.6 (1.2-3.4); MEAN CORPUSCULAR HEMOGLOBIN 29.4 pg (25.0-35.0); MEAN CORPUSCULAR HGB CONC 32.6 g/dl (31.0-37.0); MEAN PLATELET VOLUME 9.2 fl (7.0-11.0); MONO # 0.7 (0.1-0.6); MONO % 5.5 % (1.0-6.0); PLATELET COUNT 228 10^3/uL (120.0-450.0); RBC 4.22 10^6/uL (3.5-6.1); RED CELL DISTRIBUTION WIDTH 13.4 % (11.5-14.5)
[2017-03-24] MEDS: ceFAZolin 2 GM in Sodium Chloride 0.9% 100 ML IVPB SCH ×3 (06:07→21:36)
[2017-03-24 06:08] LABS: ALB/GLOB RATIO 0.7 (1.1-1.8); ALBUMIN 3.1 g/dL (3.0-4.8); ALT/SGPT 23 U/L (7-56); AST/SGOT 38 U/L (15-59); BILIRUBIN,DIRECT 0.4 mg/dL (0.0-0.4); BLOOD UREA NITROGEN 16 mg/dL (7-21); CALCIUM 8.8 mg/dL (8.4-10.5); GFR AFRICAN-AMERICAN > 60; GFR NON-AFRICAN AMERICAN > 60; MAGNESIUM 1.8 mg/dL (1.7-2.2)
[2017-03-24] MEDS: Insulin Lispro (humaLOG) MEDIUM Coverage SC SCH ×3 (08:04→16:27)
[2017-03-24] MEDS: Insulin Lispro 1 UNITS/0.01 ML SC SCH ×3 (08:05→16:29)
[2017-03-24] MEDS: Pantoprazole 40 mg EC Tab PO SCH (08:09)
[2017-03-24] MEDS: Silver Sulfadiazine 1% Cream (20 gm) TOP SCH (10:46)
--- NOTE | 2017-03-24 12:09 | CP.PCM.PN ---
<Yojana Casillas - Last Filed: 03/24/17 12:15> Subjective - Date & Time of Evaluation Date of Evaluation: 03/24/17 Time of Evaluation: 10:25 - Subjective Subjective: 72 year old male was seen resting comfortably at bedside with attending, Dr. Baron, 3 days s/p right hallux wound debridement/I&D. Patient has his daughter on the phone who states that she would like to seek a second opinion from a doctor at [place] on Sunday morning as this is where she also lives. Patient currently in NAD. Dressing is clean, dry, intact. Patient denies any F/C /N/V/SOB. Objective - Vital Signs/Intake and Output Vital Signs (last 24 hours): Temp Pulse Resp BP Pulse Ox 98.7 F 88 20 132/85 98 03/24/17 08:02 03/24/17 10:43 03/24/17 08:02 03/24/17 10:43 03/24/17 08:02 Intake and Output: 03/24/17 03/24/17 06:59 18:59 Intake Total 0 Output Total 1375 Balance -1375 - Medications Medications: Current Medications Acetaminophen (Tylenol 325mg Tab) 650 mg PO Q6H PRN PRN Reason: Fever >100.4 F Atorvastatin Calcium (Lipitor) 10 mg PO DIN [facility] Last Admin: 03/23/17 17:05 Dose: 10 mg Heparin Sodium (Porcine) (Heparin) 5,000 units SC Q8 [facility] PRN Reason: Protocol Last Admin: 03/24/17 06:12 Dose: 5,000 units Sodium Chloride (Sodium Chloride 0.9%) 1,000 mls @ 80 mls/hr IV .[id number] [facility] Last Admin: 03/22/17 10:07 Dose: 80 mls/hr Cefazolin Sodium 2 gm/ Sodium (Chloride) 100 mls @ 200 mls/hr IVPB Q8 [facility] PRN Reason: Protocol Last Admin: 03/24/17 06:07 Dose: 200 mls/hr Insulin Detemir (Levemir) 25 unit SC AMHS [facility] Last Admin: 03/24/17 10:44 Dose: 25 unit Insulin Human Lispro (Humalog Med) 0 units SC AC [facility] PRN Reason: Protocol Last Admin: 03/24/17 11:56 Dose: 1 units Insulin Human Lispro (Humalog) 2 units SC ACBL [facility] Last Admin: 03/24/17 11:57 Dose: 2 units Insulin Human Lispro (Humalog) 2 units SC ACD [facility] Last Admin: 03/23/17 17:39 Dose: Not Given Losartan Potassium (Cozaar) 25 mg PO DAILY [facility] Last Admin: 03/24/17 10:43 Dose: 25 mg (Victoza 1.8 Units) (Home Med) 1.8 units SUBCUT DAILY [facility] Last Admin: 03/24/17 10:43 Dose: 1.8 units Ondansetron HCl (Zofran Inj) 4 mg IVP ONCE PRN PRN Reason: Nausea/Vomiting Oxycodone/Acetaminophen (Percocet 5/325 Mg Tab) 1 tab PO Q6H PRN PRN Reason: Pain, moderate (4-7) Stop: 03/24/17 17:30 Oxycodone/Acetaminophen (Percocet 5/325 Mg Tab) 2 tab PO Q6H PRN PRN Reason: Pain, severe (8-10) Stop: 03/24/17 17:30 Pantoprazole Sodium (Protonix Ec Tab) 40 mg PO ACB [facility] Last Admin: 03/24/17 08:09 Dose: 40 mg Silver Sulfadiazine (Silvadene 1% 20 Gm) 0 ea TOP DAILY [facility] Last Admin: 03/24/17 10:46 Dose: 1 unit - Labs Labs: 03/24/17 05:45 03/24/17 05:45 PT 11.0 Seconds (9.9-11.8) 03/19/17 10:33 INR 1.02 (0.93-1.08) 03/19/17 10:33 APTT 26.6 Seconds (23.7-30.8) 03/19/17 10:33 - Constitutional Appears: Well, Non-toxic, No Acute Distress - Extremities Exam Additional comments: Right lower extremity focused exam: Vasc: DP and PT pulses non-palpable. TG WNL, CFT < 3 seconds to digits x5 Neuro: protective sensation grossly diminished Ortho: No tenderness to palpation of right hallux Derm: Right hallux distal tip is dark and cyanotic with decreased CFT. There is a mixture of fibrotic and granular tissue noted circumferentially around the hallux. Skin around the right great toe is erythematous with necrotic changes noted distally. There is no malodor, no purulence, no drainage noted. The ulceration is noted to the dorsolateral hallux at the IPJ with the sinus tract probing approximately 4 cm proximally. 1/4" iodoform packing remains intact within the sinus tract. - Neurological Exam Neurological Exam: Alert, Awake, Oriented x3 - Psychiatric Exam Psychiatric exam: Normal Affect, Normal Mood Assessment and Plan - Assessment and Plan (Free Text) Assessment: 72 year old male 3 days s/p right hallux wound debridement/I&D Plan: Patient examined and evaluated with attending, Dr. Baron chart, labs, and vitals reviewed: afebrile, WBC 12.0 Packing removed from sinus tract in right hallux Re-packed right hallux with 1/4 inch iodoform packing and applied DSD to R foot. continue IV abx per ID Wound cx final: Raoultella Ornitinolytica, S. aureus Patient's family wishes to take patient for 2nd opinion elsewhere Pt and family agree to remain in house for pt to receive IV abx over the weekend Pt stable to discharge from podiatry standpoint following dressing change and IV abx on Sunday podiatry will continue to follow pt while in house <Eileen Baron - Last Filed: 03/25/17 18:38> Objective - Vital Signs/Intake and Output Vital Signs (last 24 hours): Temp Pulse Resp BP Pulse Ox 98.6 F 87 18 165/96 H 95 03/25/17 07:31 03/25/17 09:13 03/25/17 07:31 03/25/17 09:13 03/25/17 07:31 Intake and Output: 03/25/17 03/25/17 06:59 18:59 Intake Total 1979 1080 Output Total 400 Balance 1980 680 - Medications Medications: Current Medications Acetaminophen (Tylenol 325mg Tab) 650 mg PO Q6H PRN PRN Reason: Fever >100.4 F Atorvastatin Calcium (Lipitor) 10 mg PO DIN [facility] Last Admin: 03/25/17 17:27 Dose: 10 mg Heparin Sodium (Porcine) (Heparin) 5,000 units SC Q8 [facility] PRN Reason: Protocol Last Admin: 03/25/17 13:17 Dose: 5,000 units Sodium Chloride (Sodium Chloride 0.9%) 1,000 mls @ 80 mls/hr IV .[id number] [facility] Last Admin: 03/25/17 05:05 Dose: 80 mls/hr Cefazolin Sodium 2 gm/ Sodium (Chloride) 100 mls @ 200 mls/hr IVPB Q8 [facility] PRN Reason: Protocol Last Admin: 03/25/17 13:19 Dose: 200 mls/hr Insulin Detemir (Levemir) 25 unit SC AMHS [facility] Last Admin: 03/25/17 09:13 Dose: 25 unit Insulin Human Lispro (Humalog Med) 0 units SC AC [facility] PRN Reason: Protocol Last Admin: 03/25/17 17:23 Dose: Not Given Insulin Human Lispro (Humalog) 2 units SC ACBL [facility] Last Admin: 03/25/17 12:21 Dose: 2 units Insulin Human Lispro (Humalog) 2 units SC ACD [facility] Last Admin: 03/25/17 17:23 Dose: Not Given Losartan Potassium (Cozaar) 25 mg PO DAILY [facility] Last Admin: 03/25/17 09:13 Dose: 25 mg (Victoza 1.8 Units) (Home Med) 1.8 units SUBCUT DAILY [facility] Last Admin: 03/25/17 09:10 Dose: 1.8 units Ondansetron HCl (Zofran Inj) 4 mg IVP ONCE PRN PRN Reason: Nausea/Vomiting Pantoprazole Sodium (Protonix Ec Tab) 40 mg PO ACB [facility] Last Admin: 03/25/17 09:17 Dose: 40 mg Silver Sulfadiazine (Silvadene 1% 20 Gm) 0 ea TOP DAILY [facility] Last Admin: 03/25/17 17:24 Dose: Not Given - Labs Labs: 03/25/17 05:40 03/25/17 05:40 PT 11.0 Seconds (9.9-11.8) 03/19/17 10:33 INR 1.02 (0.93-1.08) 03/19/17 10:33 APTT 26.6 Seconds (23.7-30.8) 03/19/17 10:33 Attending/Attestation - Attestation I have personally seen and examined this patient.: Yes I have fully participated in the care of the patient.: Yes I have reviewed all pertinent clinical information, including history, physical exam and plan: Yes
--- NOTE | 2017-03-24 16:34 | CP.PCM.PN ---
Subjective - Date & Time of Evaluation Date of Evaluation: 03/24/17 Time of Evaluation: 11:20 - Subjective Subjective: Resting comfortably in bed, not in distress, afebrile. Objective - Vital Signs/Intake and Output Vital Signs (last 24 hours): Temp Pulse Resp BP Pulse Ox 98.7 F 90 20 138/83 98 03/24/17 08:02 03/24/17 08:02 03/24/17 08:02 03/24/17 08:02 03/24/17 08:02 Intake and Output: 03/24/17 03/24/17 06:59 18:59 Intake Total 0 Output Total 1375 Balance -1375 - Medications Medications: Current Medications Acetaminophen (Tylenol 325mg Tab) 650 mg PO Q6H PRN PRN Reason: Fever >100.4 F Atorvastatin Calcium (Lipitor) 10 mg PO DIN [facility] Last Admin: 03/23/17 17:05 Dose: 10 mg Heparin Sodium (Porcine) (Heparin) 5,000 units SC Q8 [facility] PRN Reason: Protocol Last Admin: 03/24/17 06:12 Dose: 5,000 units Sodium Chloride (Sodium Chloride 0.9%) 1,000 mls @ 80 mls/hr IV .[id number] [facility] Last Admin: 03/22/17 10:07 Dose: 80 mls/hr Cefazolin Sodium 2 gm/ Sodium (Chloride) 100 mls @ 200 mls/hr IVPB Q8 [facility] PRN Reason: Protocol Last Admin: 03/24/17 06:07 Dose: 200 mls/hr Insulin Detemir (Levemir) 25 unit SC AMHS [facility] Last Admin: 03/24/17 02:29 Dose: 25 unit Insulin Human Lispro (Humalog Med) 0 units SC AC [facility] PRN Reason: Protocol Last Admin: 03/24/17 08:04 Dose: 1 units Insulin Human Lispro (Humalog) 2 units SC ACBL [facility] Last Admin: 03/24/17 08:05 Dose: 2 units Insulin Human Lispro (Humalog) 2 units SC ACD [facility] Last Admin: 03/23/17 17:39 Dose: Not Given Losartan Potassium (Cozaar) 25 mg PO DAILY [facility] Last Admin: 03/23/17 09:16 Dose: 25 mg (Victoza 1.8 Units) (Home Med) 1.8 units SUBCUT DAILY [facility] Last Admin: 03/23/17 10:34 Dose: 1.8 units Ondansetron HCl (Zofran Inj) 4 mg IVP ONCE PRN PRN Reason: Nausea/Vomiting Oxycodone/Acetaminophen (Percocet 5/325 Mg Tab) 1 tab PO Q6H PRN PRN Reason: Pain, moderate (4-7) Stop: 03/24/17 17:30 Oxycodone/Acetaminophen (Percocet 5/325 Mg Tab) 2 tab PO Q6H PRN PRN Reason: Pain, severe (8-10) Stop: 03/24/17 17:30 Pantoprazole Sodium (Protonix Ec Tab) 40 mg PO ACB [facility] Last Admin: 03/24/17 08:09 Dose: 40 mg Silver Sulfadiazine (Silvadene 1% 20 Gm) 0 ea TOP DAILY [facility] Last Admin: 03/23/17 10:34 Dose: 1 unit - Labs Labs: 03/24/17 05:45 03/24/17 05:45 PT 11.0 Seconds (9.9-11.8) 03/19/17 10:33 INR 1.02 (0.93-1.08) 03/19/17 10:33 APTT 26.6 Seconds (23.7-30.8) 03/19/17 10:33 - Constitutional Appears: Non-toxic, No Acute Distress - Head Exam Head Exam: NORMAL INSPECTION - ENT Exam ENT Exam: Mucous Membranes Moist - Neck Exam Neck Exam: absent: Lymphadenopathy, Meningismus - Respiratory Exam Respiratory Exam: Decreased Breath Sounds - Cardiovascular Exam Cardiovascular Exam: +S1, +S2 - GI/Abdominal Exam GI & Abdominal Exam: Soft. absent: Tenderness Assessment and Plan - Assessment and Plan (Free Text) Plan: Assessment Right hallux infected ulcer,growing methicillin-sensitive Staph aureus and Raoultella - no evidence of osteomyelitis on MRI of the foot DM HTN dyslipidemia psoriasis history of wounds in the foot history of rib fractures due to trauma Plan continue cefazolin day 5 - patient to be followed up at the wound center to ascertain duration of treatment
--- NOTE | 2017-03-24 20:48 | PN ---
SUBJECTIVE: The patient is seen in [facility] in [place]. This is a 72-year-old white male; he is a patient of Dr. Greene; I am covering for Dr. Greene today. The patient was admitted with infection of his right big toe and the patient has a history of diabetes mellitus. The patient also has a history of gastritis. PHYSICAL EXAMINATION: GENERAL: The patient is overweight. He is very pleasant. VITAL SIGNS: This morning; his pulse is 76, blood pressure 157/87, respirations 20, his temperature 99.0, and his O2 saturation is 95% on 2 L of oxygen. HEENT: Head is normocephalic. NECK: JVP is flat. HEART: S1 and S2 present. No murmurs. LUNGS: Trachea is center. Breath sounds are clear. No adventitious sounds. ABDOMEN: Soft. Obesity present. EXTREMITIES: There is evidence of infection of the right big toe. Patient has local treatment for the infection and patient is on IV antibiotics. CENTRAL NERVOUS SYSTEM: Patient has no focal neurological deficit. MEDICATIONS: His medication list consists of Victoza 1.8 units daily. Patient is on cefazolin 2 g q.8 hours. Patient is on local treatment for the wound. Patient is on losartan 25 mg daily. Patient is on heparin prophylaxis. Patient is on insulin coverage. Patient is on Lipitor 10 mg daily. Patient is on Percocet for pain and pantoprazole for gastritis, sodium chloride, IV fluids. LABORATORY DATA: The white count is 11,300. His differential shows that the patient has 74% granulocytes, the shift of the left is consistent with infection. Patient's chemistry; the blood sugar is 154. The patient's chemical parameters otherwise within normal limits. We will continue current management and follow up. ASSESSMENT AND PLAN: Patient will get management for the wound care and of course antibiotic treatment for his septic condition. His overall prognosis is fair. Patient's condition is improving. Debbie Rivas MD [facility]
--- NOTE | 2017-03-25 05:04 | PN ---
DATE: This patient is a patient of Dr. Greene, I am covering for him. SUBJECTIVE: The patient is a 72-year-old white male. He is admitted with infection of the right big toe. The patient has positive history of diabetes mellitus and psoriasis. The patient was treated for psoriasis by a crop specialist. The patient is getting treatment in the hospital with IV antibiotic. The patient also gets hyperbaric chamber treatment for the wound on the right big toe. ALLERGIES: THE PATIENT IS ALLERGIC TO KIWI, STRAWBERRIES AND RASPBERRIES. PHYSICAL EXAMINATION: GENERAL: At the time of seeing the patient, the patient feels comfortable, but he is continuing his medications. He says he gets a headache on and off. VITAL SIGNS: This morning; pulse is 81, blood pressure 129/70, respirations are 20, O2 sat is 96% on room air, temperature 98.1. HEENT: Head is normocephalic. NECK: Thyroid is not enlarged. No lymphadenopathy. LUNGS: Trachea central. Breath sounds vesicular. No adventitious sound. HEART: Normal S1, S2 present. No murmur, no rubs heard in precordium. ABDOMEN: Soft. The patient has evidence of mild obesity. The truncal obesity is noted. CENTRAL NERVOUS SYSTEM: He is conscious, rational, oriented. No focal, neurological deficits are presenting. The patient has evidence of psoriasis. At this time, the patient is getting treatment for his big toe infection. MEDICATIONS: His medication list consists of Victoza. The patient is on Ancef, losartan, heparin, insulin. The patient takes Lipitor, Percocet for pain, pantoprazole for gastritis, and the patient is also being treated with Zofran for nausea. LABORATORY DATA: [place] [address]. Differential; the granulocytes 80%, shift to the left consistent with infection. The patient's chemistry findings; the blood sugar is 190. GFR is within normal limits. The patient's other chemical parameters including liver function, renal functions are within normal limits. ASSESSMENT AND PLAN: The patient will continue current management, antibiotic. The patient is getting local treatment for the foot infection. Dr. Baron is the ic designer custom on care. The patient gets diabetic, heart healthy diet. His condition is stable. On a general basis, he needs continued antibiotic treatment and local treatment. Debbie Rivas MD [facility] # [id number] [facility]
[2017-03-25] MEDS: ceFAZolin 2 GM in Sodium Chloride 0.9% 100 ML IVPB SCH ×3 (05:05→21:07)
[2017-03-25] MEDS: Sodium Chloride 0.9% 1,000 ML IV SCH ×2 (05:05→21:08)
[2017-03-25 06:25] LABS: BASO # 0.01 K/mm3 (0.0-2.0); BASO % 0.1 % (0.0-3.0); EOS # 0.1 (0.0-0.7); EOS % 1.2 % (1.5-5.0); GRAN # 9.47 (1.4-6.5); HEMOGLOBIN 12.8 gm/dL (14.0-18.0); LYMPH # 1.6 (1.2-3.4); LYMPH % 13.6 % (22.0-35.0); MEAN CELL VOLUME 90.4 fL (80.0-105.0); MEAN CORPUSCULAR HEMOGLOBIN 29.2 pg (25.0-35.0); MEAN CORPUSCULAR HGB CONC 32.2 g/dl (31.0-37.0); MEAN PLATELET VOLUME 9.2 fl (7.0-11.0); MONO # 0.7 (0.1-0.6); MONO % 6.1 % (1.0-6.0); PLATELET COUNT 245 10^3/uL (120.0-450.0); RBC 4.39 10^6/uL (3.5-6.1); RED CELL DISTRIBUTION WIDTH 13.5 % (11.5-14.5)
[2017-03-25 06:35] LABS: ALB/GLOB RATIO 0.7 (1.1-1.8); ALBUMIN 3.1 g/dL (3.0-4.8); ALT/SGPT 27 U/L (7-56); AST/SGOT 39 U/L (15-59); BILIRUBIN,DIRECT 0.6 mg/dL (0.0-0.4); BLOOD UREA NITROGEN 17 mg/dL (7-21); GFR AFRICAN-AMERICAN > 60; GFR NON-AFRICAN AMERICAN > 60; MAGNESIUM 1.8 mg/dL (1.7-2.2)
[2017-03-25] MEDS: Insulin Lispro 1 UNITS/0.01 ML SC SCH ×3 (07:28→17:23)
[2017-03-25] MEDS: Insulin Lispro (humaLOG) MEDIUM Coverage SC SCH ×3 (07:28→17:23)
[2017-03-25 07:32] VITALS: RESP 18; O2SAT 95
[2017-03-25] MEDS: Insulin Detemir 100 units/ml Vial (Levemir) SC SCH ×2 (09:13→22:04)
[2017-03-25] MEDS: Pantoprazole 40 mg EC Tab PO SCH (09:17)
--- NOTE | 2017-03-25 13:44 | CP.PCM.PN ---
Subjective - Date & Time of Evaluation Date of Evaluation: 03/25/17 Time of Evaluation: 11:30 - Subjective Subjective: Comfortable in bed, no fevers, no distress. Objective - Vital Signs/Intake and Output Vital Signs (last 24 hours): Temp Pulse Resp BP Pulse Ox 98.6 F 87 18 165/96 H 95 03/25/17 07:31 03/25/17 07:31 03/25/17 07:31 03/25/17 07:31 03/25/17 07:31 Intake and Output: 03/25/17 03/25/17 06:59 18:59 Intake Total 1979 120 Output Total 400 Balance 1979 -280 - Medications Medications: Current Medications Acetaminophen (Tylenol 325mg Tab) 650 mg PO Q6H PRN PRN Reason: Fever >100.4 F Atorvastatin Calcium (Lipitor) 10 mg PO DIN [facility] Last Admin: 03/24/17 17:56 Dose: 10 mg Heparin Sodium (Porcine) (Heparin) 5,000 units SC Q8 [facility] PRN Reason: Protocol Last Admin: 03/25/17 05:05 Dose: 5,000 units Sodium Chloride (Sodium Chloride 0.9%) 1,000 mls @ 80 mls/hr IV .[id number] [facility] Last Admin: 03/25/17 05:05 Dose: 80 mls/hr Cefazolin Sodium 2 gm/ Sodium (Chloride) 100 mls @ 200 mls/hr IVPB Q8 [facility] PRN Reason: Protocol Last Admin: 03/25/17 05:05 Dose: 200 mls/hr Insulin Detemir (Levemir) 25 unit SC AMHS [facility] Last Admin: 03/24/17 21:36 Dose: 25 unit Insulin Human Lispro (Humalog Med) 0 units SC AC [facility] PRN Reason: Protocol Last Admin: 03/25/17 07:28 Dose: Not Given Insulin Human Lispro (Humalog) 2 units SC ACBL [facility] Last Admin: 03/25/17 07:28 Dose: Not Given Insulin Human Lispro (Humalog) 2 units SC ACD [facility] Last Admin: 03/24/17 16:29 Dose: 2 units Losartan Potassium (Cozaar) 25 mg PO DAILY [facility] Last Admin: 03/24/17 10:43 Dose: 25 mg (Victoza 1.8 Units) (Home Med) 1.8 units SUBCUT DAILY [facility] Last Admin: 03/24/17 10:43 Dose: 1.8 units Ondansetron HCl (Zofran Inj) 4 mg IVP ONCE PRN PRN Reason: Nausea/Vomiting Pantoprazole Sodium (Protonix Ec Tab) 40 mg PO ACB [facility] Last Admin: 03/24/17 08:09 Dose: 40 mg Silver Sulfadiazine (Silvadene 1% 20 Gm) 0 ea TOP DAILY [facility] Last Admin: 03/24/17 10:46 Dose: 1 unit - Labs Labs: 03/25/17 05:40 03/25/17 05:40 PT 11.0 Seconds (9.9-11.8) 03/19/17 10:33 INR 1.02 (0.93-1.08) 03/19/17 10:33 APTT 26.6 Seconds (23.7-30.8) 03/19/17 10:33 - Constitutional Appears: Non-toxic, No Acute Distress - Head Exam Head Exam: NORMAL INSPECTION - ENT Exam ENT Exam: Mucous Membranes Moist - Neck Exam Neck Exam: absent: Lymphadenopathy, Meningismus - Respiratory Exam Respiratory Exam: Decreased Breath Sounds - Cardiovascular Exam Cardiovascular Exam: +S1, +S2 - GI/Abdominal Exam GI & Abdominal Exam: Soft. absent: Tenderness - Extremities Exam Additional comments: right foot with dressings in place Assessment and Plan - Assessment and Plan (Free Text) Plan: Assessment Right hallux infected ulcer (with gangrene) ,growing methicillin-sensitive Staph aureus and Raoultella - no evidence of osteomyelitis on MRI of the foot DM HTN dyslipidemia psoriasis history of wounds in the foot history of rib fractures due to trauma Plan continue cefazolin day 6 - patient to be followed up at the wound center to ascertain duration of treatment
--- NOTE | 2017-03-25 15:54 | CP.PCM.PN ---
<Yojana Casillas - Last Filed: 03/25/17 16:00> Subjective - Date & Time of Evaluation Date of Evaluation: 03/25/17 Time of Evaluation: 12:45 - Subjective Subjective: 72 year old male was seen resting comfortably at bedside with his family 4 days s/p right hallux wound debridement/I&D. Patient's family has been informed by Dr. Greene that he is not ok with patient leaving at this time. Patient's family expresses desire to get a second opinion for the right foot prior to making any treatment decisions. Patient's family would rather not sign out AMA due to patient's need for antibiotics, but state they may do so tomorrow morning. Patient currently in NAD. Dressing is clean, dry, and intact. Patient states he is not experiencing any pain in the right foot at this time. Patient denies any F/C/N/V/SOB. Objective - Vital Signs/Intake and Output Vital Signs (last 24 hours): Temp Pulse Resp BP Pulse Ox 98.6 F 87 18 165/96 H 95 03/25/17 07:31 03/25/17 09:13 03/25/17 07:31 03/25/17 09:13 03/25/17 07:31 Intake and Output: 03/25/17 03/25/17 06:59 18:59 Intake Total 1980 1080 Output Total 400 Balance 1980 680 - Medications Medications: Current Medications Acetaminophen (Tylenol 325mg Tab) 650 mg PO Q6H PRN PRN Reason: Fever >100.4 F Atorvastatin Calcium (Lipitor) 10 mg PO DIN [facility] Last Admin: 03/24/17 17:56 Dose: 10 mg Heparin Sodium (Porcine) (Heparin) 5,000 units SC Q8 [facility] PRN Reason: Protocol Last Admin: 03/25/17 13:17 Dose: 5,000 units Sodium Chloride (Sodium Chloride 0.9%) 1,000 mls @ 80 mls/hr IV .[id number] [facility] Last Admin: 03/25/17 05:05 Dose: 80 mls/hr Cefazolin Sodium 2 gm/ Sodium (Chloride) 100 mls @ 200 mls/hr IVPB Q8 [facility] PRN Reason: Protocol Last Admin: 03/25/17 13:19 Dose: 200 mls/hr Insulin Detemir (Levemir) 25 unit SC AMHS [facility] Last Admin: 03/25/17 09:13 Dose: 25 unit Insulin Human Lispro (Humalog Med) 0 units SC AC [facility] PRN Reason: Protocol Last Admin: 03/25/17 12:20 Dose: 3 units Insulin Human Lispro (Humalog) 2 units SC ACBL [facility] Last Admin: 03/25/17 12:21 Dose: 2 units Insulin Human Lispro (Humalog) 2 units SC ACD [facility] Last Admin: 03/24/17 16:29 Dose: 2 units Losartan Potassium (Cozaar) 25 mg PO DAILY [facility] Last Admin: 03/25/17 09:13 Dose: 25 mg (Victoza 1.8 Units) (Home Med) 1.8 units SUBCUT DAILY [facility] Last Admin: 03/25/17 09:10 Dose: 1.8 units Ondansetron HCl (Zofran Inj) 4 mg IVP ONCE PRN PRN Reason: Nausea/Vomiting Pantoprazole Sodium (Protonix Ec Tab) 40 mg PO ACB [facility] Last Admin: 03/25/17 09:17 Dose: 40 mg Silver Sulfadiazine (Silvadene 1% 20 Gm) 0 ea TOP DAILY [facility] Last Admin: 03/24/17 10:46 Dose: 1 unit - Labs Labs: 03/25/17 05:40 03/25/17 05:40 PT 11.0 Seconds (9.9-11.8) 03/19/17 10:33 INR 1.02 (0.93-1.08) 03/19/17 10:33 APTT 26.6 Seconds (23.7-30.8) 03/19/17 10:33 - Constitutional Appears: Well, Non-toxic, No Acute Distress - Extremities Exam Additional comments: Right lower extremity focused exam: Vasc: DP and PT pulses non-palpable. temperature gradient WNL, CFT < 3 seconds to digits x5 Neuro: protective sensation grossly diminished Ortho: No tenderness to palpation of right hallux Derm: Right hallux distal tip is dark and cyanotic with decreased CFT. There is mostly fibrotic tissue noted circumferentially around the hallux. Skin around the right great toe is erythematous with necrotic changes noted distal to the IPJ. There is no malodor, no purulence, no drainage noted. The ulceration is noted to the dorsolateral hallux at the IPJ with the sinus tract probing approximately 4 cm proximally. 09/13" iodoform packing remains intact within the sinus tract upon removal of dressing. - Neurological Exam Neurological Exam: Alert, Awake, Oriented x3 - Psychiatric Exam Psychiatric exam: Normal Affect, Normal Mood Assessment and Plan - Assessment and Plan (Free Text) Assessment: 72 year old male 4 days s/p right hallux wound debridement/I&D Plan: Patient seen and evaluated at bedside Discussed in detail with attending Dr. Baron chart, labs, and vitals reviewed: afebrile, WBC 12.0 Packing removed from sinus tract in right hallux Re-packed right hallux with 1/4 inch iodoform packing and applied petroleum gauze dressing and DSD to R foot Pt to continue IV abx per ID Patient's family wishes to take patient for 2nd opinion elsewhere but understands that it will have to be AMA Pt and family will decide whether to leave today or tomorrow morning so they can see another doctor Sunday morning about the foot before deciding about further surgery Pt stable to discharge from podiatry standpoint Podiatry will continue to follow pt while in house <Eileen Baron - Last Filed: 03/25/17 18:43> Objective - Vital Signs/Intake and Output Vital Signs (last 24 hours): Temp Pulse Resp BP Pulse Ox 98.6 F 87 18 165/96 H 95 03/25/17 07:31 03/25/17 09:13 03/25/17 07:31 03/25/17 09:13 03/25/17 07:31 Intake and Output: 03/25/17 03/25/17 06:59 18:59 Intake Total 1980 1080 Output Total 400 Balance 1980 680 - Medications Medications: Current Medications Acetaminophen (Tylenol 325mg Tab) 650 mg PO Q6H PRN PRN Reason: Fever >100.4 F Atorvastatin Calcium (Lipitor) 10 mg PO DIN [facility] Last Admin: 03/25/17 17:27 Dose: 10 mg Heparin Sodium (Porcine) (Heparin) 5,000 units SC Q8 [facility] PRN Reason: Protocol Last Admin: 03/25/17 13:17 Dose: 5,000 units Sodium Chloride (Sodium Chloride 0.9%) 1,000 mls @ 80 mls/hr IV .[id number] [facility] Last Admin: 03/25/17 05:05 Dose: 80 mls/hr Cefazolin Sodium 2 gm/ Sodium (Chloride) 100 mls @ 200 mls/hr IVPB Q8 [facility] PRN Reason: Protocol Last Admin: 03/25/17 13:19 Dose: 200 mls/hr Insulin Detemir (Levemir) 25 unit SC AMHS [facility] Last Admin: 03/25/17 09:13 Dose: 25 unit Insulin Human Lispro (Humalog Med) 0 units SC AC [facility] PRN Reason: Protocol Last Admin: 03/25/17 17:23 Dose: Not Given Insulin Human Lispro (Humalog) 2 units SC ACBL [facility] Last Admin: 03/25/17 12:21 Dose: 2 units Insulin Human Lispro (Humalog) 2 units SC ACD [facility] Last Admin: 03/25/17 17:23 Dose: Not Given Losartan Potassium (Cozaar) 25 mg PO DAILY [facility] Last Admin: 03/25/17 09:13 Dose: 25 mg (Victoza 1.8 Units) (Home Med) 1.8 units SUBCUT DAILY [facility] Last Admin: 03/25/17 09:10 Dose: 1.8 units Ondansetron HCl (Zofran Inj) 4 mg IVP ONCE PRN PRN Reason: Nausea/Vomiting Pantoprazole Sodium (Protonix Ec Tab) 40 mg PO ACB [facility] Last Admin: 03/25/17 09:17 Dose: 40 mg Silver Sulfadiazine (Silvadene 1% 20 Gm) 0 ea TOP DAILY [facility] Last Admin: 03/25/17 17:24 Dose: Not Given - Labs Labs: 03/25/17 05:40 03/25/17 05:40 PT 11.0 Seconds (9.9-11.8) 03/19/17 10:33 INR 1.02 (0.93-1.08) 03/19/17 10:33 APTT 26.6 Seconds (23.7-30.8) 03/19/17 10:33 Attending/Attestation - Attestation I have personally seen and examined this patient.: Yes I have fully participated in the care of the patient.: Yes I have reviewed all pertinent clinical information, including history, physical exam and plan: Yes
--- NOTE | 2017-03-25 15:56 | PN ---
DATE: SUBJECTIVE: The patient is seen in the [facility] in [place], room 367, bed 2. He is admitted with infection of the right big toe. He is on antibiotic. The patient is on hyperbaric chamber treatment also by the cream gatherer. The patient has a history of psoriasis. The patient has a history of hyperlipidemia, diabetes mellitus. PHYSICAL EXAMINATION VITAL SIGNS: This morning, pulse is 87, blood pressure is 165/96, temperature 98.6, respirations 18 and O2 sat is 95% on room air. LUNGS: Clear. HEART: Normal sinus rhythm. ABDOMEN: Soft. Obesity present. CENTRAL NERVOUS SYSTEM: No focal deficits. ASSESSMENT AND PLAN: The patient has been advised by the cream gatherer that he might need amputation of his toe but the patient is not happy about it and he is reluctant to have the toe cut off at this point but wants to get a second opinion in one of the [facility]. The patient's condition is currently being treated with antibiotic and he will be on the treatment today in the [facility]. The patient will be seen by Dr. Greene tomorrow morning and the family will be make arrangements for the patient to go to the hospital for second opinion regarding amputation of the toe. The patient's medications will be continued as before. He is on cefazolin which is Ancef 2 gm q. 8 hours. Patient is on medication: Losartan for blood pressure, insulin for diabetes. Patient is on Lipitor for hyperlipidemia, pantoprazole for gastritis. Silvadene cream is being used for local treatment on the wound. His overall prognosis is good at this time. His condition is improving but needs definitive treatment of the toe because of the nature of the infection. Debbie Rivas MD [facility]
[2017-03-25] MEDS: Silver Sulfadiazine 1% Cream (20 gm) TOP SCH (17:24)
[2017-03-26] MEDS: ceFAZolin 2 GM in Sodium Chloride 0.9% 100 ML IVPB SCH ×2 (05:00→14:57)
[2017-03-26 07:52] LABS: BASO # 0.01 K/mm3 (0.0-2.0); BASO % 0.1 % (0.0-3.0); EOS # 0.2 (0.0-0.7); EOS % 1.6 % (1.5-5.0); GRAN # 8.14 (1.4-6.5); GRAN % 75.2 % (50.0-68.0); HEMOGLOBIN 12.4 gm/dL (14.0-18.0); LYMPH # 1.8 (1.2-3.4); LYMPH % 16.6 % (22.0-35.0); MEAN CELL VOLUME 90.3 fL (80.0-105.0); MEAN CORPUSCULAR HEMOGLOBIN 29.4 pg (25.0-35.0); MEAN CORPUSCULAR HGB CONC 32.5 g/dl (31.0-37.0); MONO # 0.7 (0.1-0.6); MONO % 6.5 % (1.0-6.0); PLATELET COUNT 245 10^3/uL (120.0-450.0); RBC 4.22 10^6/uL (3.5-6.1); RED CELL DISTRIBUTION WIDTH 13.5 % (11.5-14.5); WHITE BLOOD COUNT 10.8 10^3/ul (4.5-11.0)
[2017-03-26 08:05] VITALS: BP 159/90; PULSE 70; TEMP 98.3
[2017-03-26 08:11] LABS: ALB/GLOB RATIO 0.7 (1.1-1.8); ALT/SGPT 21 U/L (7-56); AST/SGOT 31 U/L (15-59); BILIRUBIN,DIRECT 0.3 mg/dL (0.0-0.4); BLOOD UREA NITROGEN 19 mg/dL (7-21); CALCIUM 8.9 mg/dL (8.4-10.5); GFR AFRICAN-AMERICAN > 60; GFR NON-AFRICAN AMERICAN > 60; MAGNESIUM 1.7 mg/dL (1.7-2.2)
[2017-03-26] MEDS: Insulin Lispro (humaLOG) MEDIUM Coverage SC SCH ×2 (08:28→14:54)
[2017-03-26] MEDS: Insulin Lispro 1 UNITS/0.01 ML SC SCH ×2 (08:28→14:53)
--- NOTE | 2017-03-26 10:28 | CP.PCM.PN ---
Subjective - Date & Time of Evaluation Date of Evaluation: 03/26/17 Time of Evaluation: 09:00 - Subjective Subjective: 72 year old diabetic male seen for f/ gangrene and infection to the hallux of his right foot; pt family wanted to take him to [facility] for a second opinon, however he did not want to sign out AMA and have the PICC line pulled; thus he asked me to do the surgery for him Objective - Vital Signs/Intake and Output Vital Signs (last 24 hours): Temp Pulse Resp BP Pulse Ox 98.3 F 70 18 159/90 H 95 03/26/17 08:04 03/26/17 08:04 03/26/17 08:04 03/26/17 08:04 03/26/17 08:04 Intake and Output: 03/26/17 03/26/17 06:59 18:59 Intake Total 2400 Balance 2400 - Medications Medications: Current Medications Acetaminophen (Tylenol 325mg Tab) 650 mg PO Q6H PRN PRN Reason: Fever >100.4 F Atorvastatin Calcium (Lipitor) 10 mg PO DIN [facility] Last Admin: 03/25/17 17:27 Dose: 10 mg Heparin Sodium (Porcine) (Heparin) 5,000 units SC Q8 [facility] PRN Reason: Protocol Last Admin: 03/26/17 05:00 Dose: 5,000 units Sodium Chloride (Sodium Chloride 0.9%) 1,000 mls @ 80 mls/hr IV .[id number] [facility] Last Admin: 03/25/17 21:08 Dose: 80 mls/hr Cefazolin Sodium 2 gm/ Sodium (Chloride) 100 mls @ 200 mls/hr IVPB Q8 [facility] PRN Reason: Protocol Last Admin: 03/26/17 05:00 Dose: 200 mls/hr Insulin Detemir (Levemir) 25 unit SC AMHS [facility] Last Admin: 03/25/17 22:04 Dose: 25 unit Insulin Human Lispro (Humalog Med) 0 units SC AC [facility] PRN Reason: Protocol Last Admin: 03/26/17 08:28 Dose: Not Given Insulin Human Lispro (Humalog) 2 units SC ACBL [facility] Last Admin: 03/26/17 08:28 Dose: Not Given Insulin Human Lispro (Humalog) 2 units SC ACD [facility] Last Admin: 03/25/17 17:23 Dose: Not Given Losartan Potassium (Cozaar) 25 mg PO DAILY [facility] Last Admin: 03/25/17 09:13 Dose: 25 mg (Victoza 1.8 Units) (Home Med) 1.8 units SUBCUT DAILY [facility] Last Admin: 03/25/17 09:10 Dose: 1.8 units Ondansetron HCl (Zofran Inj) 4 mg IVP ONCE PRN PRN Reason: Nausea/Vomiting Pantoprazole Sodium (Protonix Ec Tab) 40 mg PO ACB [facility] Last Admin: 03/25/17 09:17 Dose: 40 mg Silver Sulfadiazine (Silvadene 1% 20 Gm) 0 ea TOP DAILY [facility] Last Admin: 03/25/17 17:24 Dose: Not Given - Labs Labs: 03/26/17 07:30 03/26/17 07:30 PT 11.0 Seconds (9.9-11.8) 03/19/17 10:33 INR 1.02 (0.93-1.08) 03/19/17 10:33 APTT 26.6 Seconds (23.7-30.8) 03/19/17 10:33 - Constitutional Appears: No Acute Distress - Extremities Exam Extremities Exam: absent: Calf Tenderness, Tenderness Additional comments: DP 1/4 pulses; neurological - sensation is decreased/absent to bilateral feet from diabetic neuropathy; mild edema of the foot is noted; the hallux with full thickness gangrene to the skin from IPJ level to tip; the tissue which has been debrided of necrotic tissue is beginning to renecrose despite IV antibiotics good wound care and HBO treatment; there is a sinus tract from the lateral proximal aspect of the 1st MPJ into the skin above the 1st metatarsal head; there is no longer any fluid coming from that space; there is however malodor from the necrotic tissue noted; the ascending cellulitis has been resolved with the IV antibiotics - no bone is presently exposed but there is very little tissue left over the proximal phalanx Assessment and Plan - Assessment and Plan (Free Text) Assessment: DM/Neuropathy Abcess and infection of hallux right foot gangrene hallux right foot Plan: Pt stated he wanted to have surgery done here at [facility] Surgery scheduled for Sun AM However after I saw patient his son came to see me and stated that he still wanted another opinion before they amputated the hallux; he states he has an appointment tomorrow at [place] - I told him that the patient is under Dr Greene' s care and I will defer to Dr Greene for all orders In meantime we will continue IV antibiotics as per ID local care - dressing done this am HBO therapy YA - 1.34 - with normal waveforms at ankle and foot
[2017-03-26] MEDS: Pantoprazole 40 mg EC Tab PO SCH (10:29)
[2017-03-26] MEDS: Insulin Detemir 100 units/ml Vial (Levemir) SC SCH (10:30)
[2017-03-26] MEDS: Silver Sulfadiazine 1% Cream (20 gm) TOP SCH (10:33)
--- NOTE | 2017-03-26 12:46 | CP.PCM.PN ---
Subjective - Date & Time of Evaluation Date of Evaluation: 03/26/17 Time of Evaluation: 07:10 - Subjective Subjective: Internal Medicine Progress Note for Dr. Greene Patient seen and examined at bedside. Today is hospital day 8. No acute events overnight. PICC remains in place. Patient does not wish to leave AMA, but family still aggressively pursuing 2nd opinion prior to amputation. As per Primary, if can be arranged for home Abx via PICC, then can discharge to home for second opinion. Podiatry aware, deferring to primary. Case management following up. Patient denies chest pain, shortness of breath, nausea, emesis, foot pain, numbness, or focal weakness. Objective - Vital Signs/Intake and Output Vital Signs (last 24 hours): Temp Pulse Resp BP Pulse Ox 98.3 F 70 18 159/90 H 95 03/26/17 08:04 03/26/17 08:04 03/26/17 08:04 03/26/17 08:04 03/26/17 08:04 Intake and Output: 03/26/17 03/26/17 06:59 18:59 Intake Total 2400 Balance 2400 - Medications Medications: Current Medications Acetaminophen (Tylenol 325mg Tab) 650 mg PO Q6H PRN PRN Reason: Fever >100.4 F Atorvastatin Calcium (Lipitor) 10 mg PO DIN [facility] Last Admin: 03/25/17 17:27 Dose: 10 mg Heparin Sodium (Porcine) (Heparin) 5,000 units SC Q8 [facility] PRN Reason: Protocol Last Admin: 03/26/17 05:00 Dose: 5,000 units Sodium Chloride (Sodium Chloride 0.9%) 1,000 mls @ 80 mls/hr IV .[id number] [facility] Last Admin: 03/25/17 21:08 Dose: 80 mls/hr Cefazolin Sodium 2 gm/ Sodium (Chloride) 100 mls @ 200 mls/hr IVPB Q8 [facility] PRN Reason: Protocol Last Admin: 03/26/17 05:00 Dose: 200 mls/hr Insulin Detemir (Levemir) 25 unit SC AMHS [facility] Last Admin: 03/26/17 10:30 Dose: 25 unit Insulin Human Lispro (Humalog Med) 0 units SC AC [facility] PRN Reason: Protocol Last Admin: 03/26/17 08:28 Dose: Not Given Insulin Human Lispro (Humalog) 2 units SC ACBL [facility] Last Admin: 03/26/17 08:28 Dose: Not Given Insulin Human Lispro (Humalog) 2 units SC ACD [facility] Last Admin: 03/25/17 17:23 Dose: Not Given Losartan Potassium (Cozaar) 25 mg PO DAILY [facility] Last Admin: 03/26/17 10:29 Dose: 25 mg (Victoza 1.8 Units) (Home Med) 1.8 units SUBCUT DAILY [facility] Last Admin: 03/26/17 10:30 Dose: 1.8 units Ondansetron HCl (Zofran Inj) 4 mg IVP ONCE PRN PRN Reason: Nausea/Vomiting Pantoprazole Sodium (Protonix Ec Tab) 40 mg PO ACB [facility] Last Admin: 03/26/17 10:29 Dose: 40 mg Silver Sulfadiazine (Silvadene 1% 20 Gm) 0 ea TOP DAILY [facility] Last Admin: 03/26/17 10:33 Dose: Not Given - Labs Labs: 03/26/17 07:30 03/26/17 07:30 PT 11.0 Seconds (9.9-11.8) 03/19/17 10:33 INR 1.02 (0.93-1.08) 03/19/17 10:33 APTT 26.6 Seconds (23.7-30.8) 03/19/17 10:33 - Additional Findings Additional findings: - Constitutional Appears: Non-toxic, No Acute Distress - Head Exam Head Exam: ATRAUMATIC, NORMAL INSPECTION - Eye Exam Eye Exam: EOMI. absent: Conjunctival injection - Neck Exam Neck exam: Negative for: Thyromegaly - Respiratory Exam Respiratory Exam: Clear to Auscultation Bilateral, NORMAL BREATHING PATTERN. absent: Rales, Rhonchi, Wheezes - Cardiovascular Exam Cardiovascular Exam: REGULAR RHYTHM, +S1, +S2 - GI/Abdominal Exam GI & Abdominal Exam: Soft. absent: Distended, Guarding, Rigid - Extremities Exam Additional comments: right foot 1st digit s/p debridment and I&D, bandaging in place, wearing compression sock, no gross erythema/warmth/edema surrounding site - Neurological Exam Neurological exam: Alert, CN II-XII Intact, Oriented x3 - Psychiatric Exam Psychiatric exam: Normal Affect, Normal Mood - Skin Skin Exam: Warm Additional comments: right foot 1st digit bandaged Assessment and Plan - Assessment and Plan (Free Text) Assessment: Patient is a 72 year old male with PMHx of diabetes, hypertension, HPL, and is being admitted to the hospital day #8 under inpatient status for evaluation of a wound located on the 1st digit of the right foot. Pending possible D/c to home if home abx can be arranged so patient can pursue 2nd opinion regarding possible toe amputation. Plan: 1. Wound with leukocytosis details- 1st digit of right foot; PVD - wound culture- grew light gram negative rods and staph aureus - silver sulfadiazene - continue ancef - podiatry consult- likely needs amputation of toe, aware of family's desire for discharge and 2nd opinion, defers to primary - pain control- oxycodone - IR was consulted by podiatry and are now following case- no vascular intervention needed at this time - ID consult - PICC line placed - dry MRI of right foot reviewed-Cellulitis medial aspect of the big toe. No evidence of osteomyelitis 2. Edema, details right lower extremity- resovled - arterial doppler U/S bilateral read- limited study due to calcifcations, appropriate waveforms - venous doppler left L- no DVTs 3. Diabetes - accu checks ACHS - Insulin levemir - Insulin lispro - Victoza 4. HTN - hold home lisinopril- HCTZ - patient on cozar - add PRN hydralazine as SBP is elevated 5. HPL - continue ipitor 10mg 6. Psoriasis - hold home otezla as patient doesn't wish to take right now 7. Elevated Alkaline Phosphatase - LFTs reviewed, stable 8. PPX - protonix - subq heparin Patient will be discussed with attending, Dr. Greene
--- NOTE | 2017-03-26 14:28 | CP.PCM.PN ---
Subjective - Date & Time of Evaluation Date of Evaluation: 03/26/17 Time of Evaluation: 11:00 - Subjective Subjective: Comfortable in bed, not in distress. Agreed to have surgery on her right big toe on Sunday. No fevers overnight. No nausea or diarrhea. Objective - Vital Signs/Intake and Output Vital Signs (last 24 hours): Temp Pulse Resp BP Pulse Ox 98.3 F 70 18 159/90 H 95 03/26/17 08:04 03/26/17 08:04 03/26/17 08:04 03/26/17 08:04 03/26/17 08:04 Intake and Output: 03/26/17 03/26/17 06:59 18:59 Intake Total 2400 Balance 2400 - Medications Medications: Current Medications Acetaminophen (Tylenol 325mg Tab) 650 mg PO Q6H PRN PRN Reason: Fever >100.4 F Atorvastatin Calcium (Lipitor) 10 mg PO DIN [facility] Last Admin: 03/25/17 17:27 Dose: 10 mg Heparin Sodium (Porcine) (Heparin) 5,000 units SC Q8 [facility] PRN Reason: Protocol Last Admin: 03/26/17 05:00 Dose: 5,000 units Sodium Chloride (Sodium Chloride 0.9%) 1,000 mls @ 80 mls/hr IV .[id number] [facility] Last Admin: 03/25/17 21:08 Dose: 80 mls/hr Cefazolin Sodium 2 gm/ Sodium (Chloride) 100 mls @ 200 mls/hr IVPB Q8 [facility] PRN Reason: Protocol Last Admin: 03/26/17 05:00 Dose: 200 mls/hr Insulin Detemir (Levemir) 25 unit SC AMHS [facility] Last Admin: 03/25/17 22:04 Dose: 25 unit Insulin Human Lispro (Humalog Med) 0 units SC AC [facility] PRN Reason: Protocol Last Admin: 03/26/17 08:28 Dose: Not Given Insulin Human Lispro (Humalog) 2 units SC ACBL [facility] Last Admin: 03/26/17 08:28 Dose: Not Given Insulin Human Lispro (Humalog) 2 units SC ACD [facility] Last Admin: 03/25/17 17:23 Dose: Not Given Losartan Potassium (Cozaar) 25 mg PO DAILY [facility] Last Admin: 03/25/17 09:13 Dose: 25 mg (Victoza 1.8 Units) (Home Med) 1.8 units SUBCUT DAILY [facility] Last Admin: 03/25/17 09:10 Dose: 1.8 units Ondansetron HCl (Zofran Inj) 4 mg IVP ONCE PRN PRN Reason: Nausea/Vomiting Pantoprazole Sodium (Protonix Ec Tab) 40 mg PO ACB [facility] Last Admin: 03/25/17 09:17 Dose: 40 mg Silver Sulfadiazine (Silvadene 1% 20 Gm) 0 ea TOP DAILY [facility] Last Admin: 03/25/17 17:24 Dose: Not Given - Labs Labs: 03/26/17 07:30 03/26/17 07:30 PT 11.0 Seconds (9.9-11.8) 03/19/17 10:33 INR 1.02 (0.93-1.08) 03/19/17 10:33 APTT 26.6 Seconds (23.7-30.8) 03/19/17 10:33 - Constitutional Appears: Non-toxic, No Acute Distress - Head Exam Head Exam: NORMAL INSPECTION - ENT Exam ENT Exam: Mucous Membranes Moist - Neck Exam Neck Exam: absent: Lymphadenopathy, Meningismus - Respiratory Exam Respiratory Exam: Decreased Breath Sounds - Cardiovascular Exam Cardiovascular Exam: +S1, +S2 - GI/Abdominal Exam GI & Abdominal Exam: Soft. absent: Tenderness Assessment and Plan - Assessment and Plan (Free Text) Plan: Assessment Right hallux infected ulcer (with gangrene) ,growing methicillin-sensitive Staph aureus and Raoultella - no evidence of osteomyelitis on MRI of the foot DM HTN dyslipidemia psoriasis history of wounds in the foot history of rib fractures due to trauma Plan continue cefazolin day 7 - patient is for OR on Sunday and will await this procedure
--- NOTE | 2017-03-27 09:07 | CP.PCM.DIS ---
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 Priority: High (2) Failure of outpatient treatment Status: Acute Priority: High (3) Diabetes Status: Chronic Priority: Medium (4) HTN (hypertension) Status: Chronic Priority: Medium (5) HLD (hyperlipidemia) Status: Chronic Priority: Medium Hospital Course - Lab Results Lab Results: Micro Results 03/19/17 18:32 Foot - Right Gram Stain - Final 03/19/17 18:32 Foot - Right Wound Culture - Final Raoultella Ornithinolytica Staphylococcus Aureus Most Recent Lab Values WBC 10.8 10^3/ul (4.5-11.0) 03/26/17 07:30 RBC 4.22 10^6/uL (3.5-6.1) 03/26/17 07:30 Hgb 12.4 gm/dL (14.0-18.0) L 03/26/17 07:30 Hct 38.1 % (42.0-52.0) L 03/26/17 07:30 MCV 90.3 fL (80.0-105.0) 03/26/17 07:30 MCH 29.4 pg (25.0-35.0) 03/26/17 07:30 MCHC 32.5 g/dl (31.0-37.0) 03/26/17 07:30 RDW 13.5 % (11.5-14.5) 03/26/17 07:30 Plt Count 245 10^3/uL (120.0-450.0) 03/26/17 07:30 MPV 9.0 fl (7.0-11.0) 03/26/17 07:30 Gran % 75.2 % (50.0-68.0) H 03/26/17 07:30 Lymph % (Auto) 16.6 % (22.0-35.0) L 03/26/17 07:30 Johnston % (Auto) 6.5 % (1.0-6.0) H 03/26/17 07:30 Eos % (Auto) 1.6 % (1.5-5.0) 03/26/17 07:30 Baso % (Auto) 0.1 % (0.0-3.0) 03/26/17 07:30 Gran # 8.14 (1.4-6.5) H 03/26/17 07:30 Lymph # 1.8 (1.2-3.4) 03/26/17 07:30 Johnston # 0.7 (0.1-0.6) H 03/26/17 07:30 Eos # 0.2 (0.0-0.7) 03/26/17 07:30 Baso # 0.01 K/mm3 (0.0-2.0) 03/26/17 07:30 ESR 25 mm/hr (0.00-15.0) H 03/19/17 15:15 PT 11.0 Seconds (9.9-11.8) 03/19/17 10:33 INR 1.02 (0.93-1.08) 03/19/17 10:33 APTT 26.6 Seconds (23.7-30.8) 03/19/17 10:33 Sodium 138 mmol/L (132-148) 03/26/17 07:30 Potassium 4.1 mmol/L (3.6-5.0) 03/26/17 07:30 Chloride 103 mmol/L (98-107) 03/26/17 07:30 Carbon Dioxide 30 mmol/L (21-33) 03/26/17 07:30 Anion Gap 9 (10-20) L 03/26/17 07:30 BUN 19 mg/dL (7-21) 03/26/17 07:30 Creatinine 1.1 mg/dL (0.5-1.4) 03/26/17 07:30 Est GFR ( Amer) > 60 03/26/17 07:30 Est GFR (Non-Af Amer) > 60 03/26/17 07:30 POC Glucose (mg/dL) 120 mg/dL (65-110) H 03/26/17 14:12 Random Glucose 112 mg/dL (70-110) H 03/26/17 07:30 Hemoglobin A1c 9.7 % (4.2-6.5) H 03/19/17 15:15 Fructosamine 305 umol/L (190-270) H 03/19/17 15:15 Lactic Acid 1.3 mmol/L (0.7-2.1) 03/19/17 15:15 Uric Acid 6.3 mg/dL (3.5-8.5) 03/20/17 07:00 Calcium 8.9 mg/dL (8.4-10.5) 03/26/17 07:30 Phosphorus 3.3 mg/dL (2.5-4.5) 03/26/17 07:30 Magnesium 1.7 mg/dL (1.7-2.2) 03/26/17 07:30 Total Bilirubin 0.4 mg/dL (0.2-1.3) 03/26/17 07:30 Direct Bilirubin 0.3 mg/dL (0.0-0.4) 03/26/17 07:30 AST 31 U/L (15-59) 03/26/17 07:30 ALT 21 U/L (7-56) 03/26/17 07:30 Alkaline Phosphatase 168 U/L (38-133) H 03/26/17 07:30 C-React Prot High Sens > 15.00 mg/L (1.00-3.00) H 03/19/17 10:33 Total Protein 7.4 g/dL (5.8-8.3) 03/26/17 07:30 Albumin 3.0 g/dL (3.0-4.8) 03/26/17 07:30 Globulin 4.4 gm/dL 03/26/17 07:30 Albumin/Globulin Ratio 0.7 (1.1-1.8) L 03/26/17 07:30 Triglycerides 144 mg/dL (35-160) 03/19/17 15:15 Cholesterol 108 mg/dL (130-200) L 03/19/17 15:15 LDL Cholesterol Direct 38 mg/dL (0-129) 03/19/17 15:15 HDL Cholesterol 31 mg/dL (29-60) 03/19/17 15:15 25-OH Vitamin D Total 21.7 NG/ML (30.0-100.0) L 03/20/17 07:30 Beta-Hydroxybutyric Acd 21 mcg/mL 03/19/17 15:15 Procalcitonin 0.19 NG/ML (0.19-0.49) 03/19/17 15:15 Free T4 1.64 ng/dL (0.78-2.19) 03/20/17 07:00 Thyroxine (T4) 8.7 ug/dL (5.5-11.0) 03/20/17 07:00 TSH 3rd Generation 0.74 mIU/mL (0.46-4.68) 03/20/17 07:00 Urine Color Yellow (YELLOW) 03/19/17 11:50 Urine Appearance Clear (CLEAR) 03/19/17 11:50 Urine pH 6.0 (4.7-8.0) 03/19/17 11:50 Ur Specific [place] 1.025 (1.005-1.035) 03/19/17 11:50 Urine Protein Negative mg/dL (<30 mg/dL) 03/19/17 11:50 Urine Glucose (UA) >=1000 mg/dL (NEGATIVE) 03/19/17 11:50 Urine Ketones Negative mg/dL (NEGATIVE) 03/19/17 11:50 Urine Blood Negative (NEGATIVE) 03/19/17 11:50 Urine Nitrate Negative (NEGATIVE) 03/19/17 11:50 Urine Bilirubin Negative (NEGATIVE) 03/19/17 11:50 Urine Urobilinogen 0.2 E.U./dL (<1 E.U./dL) 03/19/17 11:50 Ur Leukocyte Esterase Negative Karolina/uL (NEGATIVE) 03/19/17 11:50 Hepatitis A IgM Ab Negative (NEGATIVE) 03/20/17 07:00 Hep Bs Antigen Negative (NEGATIVE) 03/20/17 07:00 Hep B Core IgM Ab Negative (NEGATIVE) 03/20/17 07:00 Hepatitis C Antibody Negative (NEGATIVE) 03/20/17 07:00 HIV 1&2 Ag/Ab, 4th Gen Nonreactive (Nonreactive) 03/20/17 07:00 Blood Type O POSITIVE 03/19/17 10:35 Blood Type Confirm O POSITIVE 03/19/17 11:50 Antibody Screen Negative 03/19/17 10:35 BBK History Checked No verified bt 03/19/17 10:35 - Hospital Course Hospital Course: Please see progress note from 03/26/17 for further details. This is a 72 yo M with PMH of diabetes, hypertension, and HPL who was admitted to the hospital day for further evaluation and management of a wound located on the 1st digit of the right foot after being sent in from outpatient office by Dr. Baron. While here, patient was seen by IR, Podiatry, and ID. As per ID, patient will need another prolonged course of antibiotics, so a PICC line was placed by IR. Podiatry saw the patient and took to the OR for debridement, but after worsening of the site despite IV antibiotics and the debridement, recommended amputation of the toe. Patient was amenable to this, but patient's family was adamant that he be discharged so they could obtain a second opinion. As per case management, home antibiotic infusions through the patient's PICC line were arranged, so patient was discharged to home. Patient and family at bedside instructed to return to the hospital with worsening symptoms or if the patient elected to proceed with the amputation. He was instructed to follow up with his PMD and [employer] within 1 week. Patient expressed understanding and agreement with these instructions. He was then discharged to home. Patient seen, reviewed, and discussed with attending, Dr. Greene. Discharge Exam - Additional Findings Additional findings: Please see progress note from 03/26/17 for physical exam, unchanged from exam at time of progress note. Discharge Plan - Discharge Medications Prescriptions: Acetaminophen [Tylenol 325mg tab] 650 mg PO Q6H PRN #30 tab PRN Reason: Fever >100.4 F ceFAZolin [Ancef] 2 gm IVPB Q8 #42 vial Insulin Detemir [Levemir] 25 unit SC AMHS #100 unit Losartan [Cozaar] 25 mg PO DAILY #30 tab Pantoprazole [Protonix EC Tab] 40 mg PO ACB #30 ect - Follow Up Plan Condition: FAIR Disposition: HOME/ ROUTINE Instructions: Peripherally Inserted Central Catheters and Midline Catheters (DC ), Peripheral Vascular Disease (GEN), Chronic Wound Care (DC) Additional Instructions: MAY DISCHARGE HOME WITH HOME IV ANTIBIOTICS AFTER CLEARED BY PODIATRY. REFER TO FUNDS DEVELOPMENT DIRECTOR FOR HOME IV ANTIBIOTICS FOLLOW UP AND ([phone]) WITHIN THIS WEEK. CONTINUE MEDICATION INSTRUCTED. KEEP PICC LINE DRESSING DRY. CHANGE FOOT DRESSING NEEDED. Referrals: Eileen Baron DPM [Staff Provider] - (MAY DISCHARGE HOME WITH HOME IV ANTIBIOTICS AFTER CLEARED BY PODIATRY REFER TO FUNDS DEVELOPMENT DIRECTOR FOR HOME IV ANTIBIOTICS FOLLOW UP AND WITHIN THIS WEEK ) Efren Hamm MD [Primary Care Provider] - 1 Week (MAY DISCHARGE HOME WITH HOME IV ANTIBIOTICS AFTER CLEARED BY PODIATRY REFER TO FUNDS DEVELOPMENT DIRECTOR FOR HOME IV ANTIBIOTICS FOLLOW UP AND WITHIN THIS WEEK )
--- NOTE | 2017-03-27 09:54 | DS ---
DATE OF ADMISSION: 03/19/2017 DATE OF DISCHARGE: 03/26/2017 SUBJECTIVE: The patient was seen lying in the bed in room 367, bed 2. The patient was seen with the patient's nurse, *------* and the patient's son-in-law at the bedside. Last 3 to 4 days events were noted. The patient at present is lying comfortably without any specific complaints. PHYSICAL EXAMINATION: VITAL SIGNS: T-max 98.3. Pulse is 70 to 87. Blood pressure averaging around 120s, 130s and 160s systolic; diastolic in 90s and 80s. Respiration 18. O2 saturation 95%. Intake, output not documented. HEAD: Normocephalic, atraumatic. HEENT: Shows pink conjunctivae, anicteric sclerae. No oropharyngeal lesion. NECK: No neck rigidity. CHEST: Kyphosis. LUNGS: Show no rales, crackles, or wheezing. CARDIOVASCULAR: S1 and S2. Regular rhythm. ABDOMEN: Protuberant, obese; positive bowel sounds. GENITALIA: Male. RECTAL: Deferred. EXTREMITIES: Positive left upper extremity PICC line noted. MUSCULOSKELETAL: Shows an elevated body mass index of 35.3. Cranial II through XII limited. Gait examination is not tested. Lower extremity examination shows positive dressing of the right foot and right toe. PSYCHIATRIC: Negative for anxiety, depression. Negative for suicidal or homicidal ideation. Negative for auditory or visual hallucination. DIAGNOSTIC STUDIES: WBC is 10.8, hemoglobin and hematocrit 12.4 and 38.1, platelets 245, granulocytes 75% segs. Sodium 138, potassium 4.1, chloride 103, CO2 of 30, anion gap 9, BUN 19, creatinine 1.1, GFR greater than 60, glucose 112. LFTs are normal. Alk phos 168. Urinalysis negative. Hepatitis A, B, C and HIV negative. Right great toe wound cultures positive for Raoultella ornithinolytica and methicillin-sensitive Staphylococcus aureus. FINAL IMPRESSION, PLAN AND DISCHARGE DIAGNOSES: 1. Right foot great toe and hallux, diabetic abscess and gangrene. 2. Methicillin-sensitive Staphylococcus aureus and Raoultella ornithinolytica, right foot great toe abscess and gangrene and diabetic foot ulceration. 3. Insulin-requiring diabetes mellitus, uncontrolled. 4. Diabetic peripheral neuropathy. 5. Right foot great toe hallux, diabetic ulceration, abscess and gangrene. 6. Status post left upper extremity PICC line placement. 7. History of psoriasis. 8. Hypertension. 9. Low-grade fever. 10. Obesity with elevated body mass index. 11. Leukocytosis with granulocytosis. 12. Normocytic anemia. 13. Elevated erythrocyte sedimentation rate of 25. 14. Insulin-requiring diabetes mellitus, uncontrolled with hemoglobin A1c of 9.7 and elevated fructosamine of 305. 15. Hypovitaminosis D. 16. History of hypercholesterolemia. 17. Elevated C-reactive protein of greater than 15. 18. Glycosuria. 19. Obesity. PLAN: At this time, the patient and the patient's son-in-law have been in the process of getting a second opinion about the podiatry care about possible amputation of the great toe, which is recommended by Dr. Baron. The patient and the patient's son-in-law wish to have a second podiatry opinion before proceeding for the amputation of the right foot big toe, and they have an appointment set up in [facility] according to the patient's son-in-law. At this time, the patient's condition, diagnosis, and all detail were discussed with the patient, the patient's son-in-law and podiatry recommendations were noted. I have also discussed the patient's discharge options for home IV antibiotic with social and political studies professor. The patient will be arranged for home IV antibiotic for at least 2 weeks with hyperbaric therapy treatment as per Infectious Disease recommendation. The patient will be cleared for discharge after the patient is cleared for discharge by Podiatry. The patient may be discharged home with home IV antibiotic after cleared by Podiatry and the patient's case was referred to social and political studies professor for home IV antibiotic. The patient has been also advised to follow up with Dr. Hamm, the patient's primary care physician, within this week and Dr. Baron within this week. DISCHARGE MEDICATIONS: Are as follows; 1. Tylenol 650 q. 6 p.r.n. 2. Ancef 2 g IV q. 8 for at least 2 more weeks which may be extended depending upon Podiatry evaluation and the status of the right foot and right great toe. 3. The patient is on Levemir 25 units with breakfast and bedtime and Humalog 2 units with breakfast, dinner and lunch. 4. Cozaar 25 mg daily. 5. Metformin 1000 mg twice a day. 6. Humalog 2 units with breakfast, lunch or dinner. 7. Otezla 30 mg twice a day. 8. Victoza 1.8 units subQ daily. 9. Protonix 40 mg daily. 10. Zocor 20 mg daily. During this hospitalization, the patient has been extensively explained about the details of his medical condition. Even today, I have explained to the patient and the patient's son-in-law about his condition and risk of progression of his medical condition including progression of his diabetic foot disease. The patient and the patient's son-in-law stated that they have an appointment tomorrow with another podiatry in [facility] for second opinion regarding the recommended right foot great toe amputation. The patient and the patient's son-in-law have been advised that the patient needs a very close followup with Dr. Baron and the medical physician, Dr. Hamm, regarding further management of the patient. Time spent in the entire discharge process is more than 45 minutes. Amrit Greene MD
== END 2017-03-26 17:41 | disposition home or self-care (01) | DRG 623 ==
LOC: ED 09:10 → ERH 12:45 → 3RNO 19:17
PROVIDERS: ADMIT Internal Medicine; ATTEND Internal Medicine
PROC: 02HV33Z Insertion of Infusion Device into Superior Vena Cava, Percutaneous Approach (ICD-10-PCS; principal; 2017-03-19)
PROC: B518ZZA Fluoroscopy of Superior Vena Cava, Guidance (ICD-10-PCS; 2017-03-19)
PROC: 0JBQ0ZZ Excision of Right Foot Subcutaneous Tissue and Fascia, Open Approach (ICD-10-PCS; 2017-03-21)
PROC: 0H9MXZZ Drainage of Right Foot Skin, External Approach (ICD-10-PCS; 2017-03-21)
PROC: B54NZZA Ultrasonography of Left Upper Extremity Veins, Guidance (ICD-10-PCS; 2017-03-22)
DX: E11.621 Type 2 diabetes mellitus with foot ulcer (principal); E11.52 Type 2 diabetes mellitus with diabetic peripheral angiopathy with gangrene; L97.519 Non-pressure chronic ulcer of other part of right foot with unspecified severity; E11.42 Type 2 diabetes mellitus with diabetic polyneuropathy; L02.611 Cutaneous abscess of right foot; L03.115 Cellulitis of right lower limb; E11.65 Type 2 diabetes mellitus with hyperglycemia; E11.628 Type 2 diabetes mellitus with other skin complications; E78.00 Pure hypercholesterolemia, unspecified; D64.9 Anemia, unspecified; E55.9 Vitamin D deficiency, unspecified; E66.9 Obesity, unspecified; E78.5 Hyperlipidemia, unspecified; I15.1 Hypertension secondary to other renal disorders; K29.70 Gastritis, unspecified, without bleeding; L40.9 Psoriasis, unspecified; M19.90 Unspecified osteoarthritis, unspecified site; M19.071 Primary osteoarthritis, right ankle and foot; N28.9 Disorder of kidney and ureter, unspecified; Z68.35 Body mass index [BMI] 35.0-35.9, adult; Z79.4 Long term (current) use of insulin; Z79.899 Other long term (current) drug therapy; Z82.49 Family history of ischemic heart disease and other diseases of the circulatory system; Z83.3 Family history of diabetes mellitus; Z87.891 Personal history of nicotine dependence; Z90.49 Acquired absence of other specified parts of digestive tract; R74.8 Abnormal levels of other serum enzymes; Z87.81 Personal history of (healed) traumatic fracture; A49.01 Methicillin susceptible Staphylococcus aureus infection, unspecified site; B95.61 Methicillin susceptible Staphylococcus aureus infection as the cause of diseases classified elsewhere; Z91.018 Allergy to other foods

== ENCOUNTER 2017-03-28 10:14 | Inpatient (IN) | payer MEDICARE ==
[2017-03-28 10:15] VITALS: BMI 35.2
--- NOTE | 2017-03-28 10:50 | ED PDOC ---
Arrival/HPI - General Historian: Patient <Tone Batista - Last Filed: 03/28/17 11:44> <Roderick Vogt - Last Filed: 03/28/17 12:58> - General Chief Complaint: Medical Clearance Time Seen by Provider: 03/28/17 10:32 - History of Present Illness Narrative History of Present Illness (Text): 03/28/17 10:42 Mr. Puckett is a 72 year old male with pmh sig for DM2, HTN, and HLD who presents to the ED from Dr. Baron's office for establishment of care for a right great toe amputation scheduled for this afternoon. The patient was previously admitted to [facility] for workup of dry gangrene of his right great toe and was scheduled for right great toe amputation. The patient requested a second opinion. He was told again that the toe required amputation. Today he contacted Dr. Baron's office and was instructed to present to [facility] emergency department for pre-op evaluation and management. 03/28/17 11:04 (Tone Batista) Past Medical History - Provider Review Nursing Documentation Reviewed: Yes - Infectious Disease Hx of Infectious Diseases: None - Cardiac Hx Cardiac Disorders: Yes Hx Hypertension: Yes - Pulmonary Hx Respiratory Disorders: Yes Other/Comment: 5 broken ribs and scar tissue to R lung - Neurological Hx Neurological Disorder: No - HEENT Hx HEENT Disorder: Yes Other/Comment: glasses - Renal Hx Renal Disorder: No - Endocrine/Metabolic Hx Endocrine Disorders: Yes Hx Diabetes Mellitus Type 2: Yes - Hematological/Oncological Hx Blood Transfusions: No - Integumentary Hx Dermatological Disorder: Yes (cellulitis) Other/Comment: hx osteomyelitis - Musculoskeletal/Rheumatological Hx Falls: No - Gastrointestinal Hx Gastrointestinal Disorders: No - Genitourinary/Gynecological Hx Genitourinary Disorders: No - Psychiatric Hx Psychophysiologic Disorder: No Hx Substance Use: No - Surgical History Hx Cholecystectomy: Yes Other/Comment: PICC line in L arm, - Anesthesia Hx Anesthesia: Yes Hx Anesthesia Reactions: No Hx Malignant Hyperthermia: No <Tone Batista - Last Filed: 03/28/17 11:44> - Provider Review Nursing Documentation Reviewed: Yes <Roderick Vogt - Last Filed: 03/28/17 12:58> Family/Social History - Physician Review Nursing Documentation Reviewed: Yes Family/Social History: No Known Family HX Smoking Status: Never Smoked Hx Alcohol Use: No Hx Substance Use: No <Tone Batista - Last Filed: 03/28/17 11:44> - Physician Review Nursing Documentation Reviewed: Yes <SinRoderick L - Last Filed: 03/28/17 12:58> Allergies/Home Meds <Tone Batista - Last Filed: 03/28/17 11:44> <Roderick Vogt - Last Filed: 03/28/17 12:58> Allergies/Adverse Reactions: Allergies kiwi Allergy (Verified 03/28/17 10:18) RASH strawberry Adverse Reaction (Verified 03/28/17 10:18) RASH rasberries Adverse Reaction (Intermediate, Uncoded 03/28/17 10:18) RASH Home Medications: Home Meds Medication Instructions Recorded Confirmed Metformin HCl [Glucophage] 1,000 mg PO BID 07/08/15 03/28/17 Novolog 2 units SUBCUT ACBL 07/08/15 03/28/17 Novolog 2 units SUBCUT ACD 07/08/15 03/28/17 Victoza 1.8 units SUBCUT DAILY 07/08/15 03/28/17 Zocor 20 mg PO DAILY 07/08/15 03/28/17 Review of Systems - Physician Review All systems were reviewed & negative as marked: Yes - Review of Systems Respiratory: absent: SOB Cardiovascular: absent: Chest Pain Skin: Other (right great toe dry gangrene) <Tone Batista - Last Filed: 03/28/17 11:44> - Physician Review All systems were reviewed & negative as marked: Yes <Roderick Vogt - Last Filed: 03/28/17 12:58> Physical Exam Vital Signs Reviewed: Yes Temperature: Afebrile Blood Pressure: Normal Pulse: Regular Respiratory Rate: Normal Appearance: Positive for: Well-Appearing Pain Distress: None Mental Status: Positive for: Alert and Oriented X 3 Finger Stick Blood Glucose: 175 - Systems Exam Head: Present: Atraumatic, Normocephalic Pupils: Present: PERRL Extroacular Muscles: Present: EOMI Conjunctiva: Present: Normal Mouth: Present: Moist Mucous Membranes Respiratory/Chest: Present: Clear to Auscultation, Good Air Exchange. No: Respiratory Distress, Accessory Muscle Use Cardiovascular: Present: Regular Rate and Rhythm, Normal S1, S2. No: Murmurs Abdomen: Present: Normal Bowel Sounds. No: Tenderness, Distention, Peritoneal Signs Upper Extremity: Present: Normal Inspection, NORMAL PULSES. No: Cyanosis, Edema Lower Extremity: Present: Other (right great toe with signs of dry gangrene ) Neurological: Present: GCS=15, CN II-XII Intact, Speech Normal Skin: Present: Other (right great toe with dry gangrenous appearance, no drainage noted ) Psychiatric: Present: Alert, Oriented x 3, Normal Insight, Normal Concentration <Tone Batista - Last Filed: 03/28/17 11:44> Vital Signs Reviewed: Yes - Systems Exam Neck: Present: Normal Range of Motion <Roderick Vogt - Last Filed: 03/28/17 12:58> Vital Signs Temp Pulse Resp BP Pulse Ox 03/28/17 12:22 82 18 156/99 H 95 03/28/17 10:25 97.8 F 88 20 126/79 95 Medical Decision Making - EKG Interpretation Interpreted by ED Physician: Yes Type: 12 lead EKG <Tone Batista - Last Filed: 03/28/17 11:44> - Lab Interpretations I have reviewed the lab results: Yes <Roderick Vogt - Last Filed: 03/28/17 12:58> ED Course and Treatment: 03/28/17 11:01 Impression: Mr. Puckett is a 72 year old male with pmh sig for DM2, HTN, and HLD who presents to the ED from Dr. Garland's office for establishment of care for a right great toe amputation scheduled for this afternoon. Differential Diagnosis included but are not limited to: - Dry gangrene - Pre-operation evaluation Plan: - CBC, CMP, Type and screen - D5 with 1/2 NS - NPO - Start on home antibiotics Ancef 2gm to start at 14:00 - Contact Dr. Roberts for admission -- Reassess and disposition Progress Notes: 03/28/17 11:40 (Tone Batista) 03/28/17 11:15 72 yo male with right great toe gangrene. I agree with with resident note. -- I discussed this case with Dr. Baron who states that patient needs amputation today at around 3pm. She states to admit to Dr. Greene and give next dose of Ancef which is scheduled at 2pm. She states to start D5 1/2 Ns at 75ml/ hr and keep NPO. -- Case discussed with Dr. Greene who will place on his service. 03/28/17 11:42 Patient Seen With Resident: In agreement with resident note which contains more details about the patient. Patient was seen and evaluated with resident. Came up with plan and treatment together. (Roderick Vogt) - Lab Interpretations Lab Results: Lab Results 03/28/17 10:31: POC Glucose (mg/dL) 175 H - EKG Interpretation EKG Interpretation (Text): 03/28/17 10:50 Normal Sinus rhythm, no ST or T wave abnormalities (Tone Batista) 03/28/17 11:17 NSR at [address] elevation, nl intervals (Roderick Vogt) - Medication Orders Current Medication Orders: Atorvastatin Calcium (Lipitor) 20 mg PO DIN GRERY Heparin Sodium (Porcine) (Heparin) 5,000 units SC Q8 GERRY PRN Reason: Protocol Dextrose/Sodium Chloride (Dextrose 5%/0.45% Ns 1000 Ml) 1,000 mls @ 75 mls/hr IV .[id number] GERRY Last Admin: 03/28/17 11:55 Dose: 75 mls/hr Cefazolin Sodium 2 gm/ Sodium (Chloride) 100 mls @ 200 mls/hr IVPB Q8 GERRY Insulin Human Lispro (Humalog High) 0 units SC ACHS GERRY PRN Reason: Protocol Losartan Potassium (Cozaar) 25 mg PO DAILY GERRY Pantoprazole Sodium (Protonix Ec Tab) 40 mg PO ACB GERRY Discontinued Medications Cefazolin Sodium 2 gm/ Sodium (Chloride) 100 mls @ 200 mls/hr IVPB ONCE ONE Stop: 03/28/17 11:44 Last Admin: 03/28/17 12:01 Dose: 200 mls/hr - PA / DELIVERY SPECIALIST / Resident Statement / has reviewed & agrees with the documentation as recorded. / has examined the patient and agrees with the treatment plan. <Tone Batista - Last Filed: 03/28/17 11:44> - Scribe Statement The provider has reviewed the documentation as recorded by the Scribe <Roderick Vogt - Last Filed: 03/28/17 12:58> - Scribe Statement 03/28/2017 Deidra Le Provider Scribe Attestation: All medical record entries made by the Scribe were at my direction and personally dictated by me. I have reviewed the chart and agree that the record accurately reflects my personal performance of the history, physical exam, medical decision making, and the department course for this patient. I have also personally directed, reviewed, and agree with the discharge instructions and disposition. (Roderick Vogt) Disposition/Present on Arrival - Present on Arrival Any Indicators Present on Arrival: Yes History of DVT/PE: No History of Uncontrolled Diabetes: Yes Urinary Catheter: No History of Decub. Ulcer: No History Surgical Site Infection Following: None - Disposition Have Diagnosis and Disposition been Completed?: Yes Patient Plan: Admission <Tone Batista - Last Filed: 03/28/17 11:44> - Present on Arrival Any Indicators Present on Arrival: Yes History of Uncontrolled Diabetes: Yes - Disposition Have Diagnosis and Disposition been Completed?: Yes Disposition Time: 11:18 Patient Plan: Admission <Roderick Vogt - Last Filed: 03/28/17 12:58> - Disposition Diagnosis: Diabetic infection of right foot Disposition: HOSPITALIZED Patient Problems: Current Active Problems Problem Status Onset Diabetic infection of right foot Chronic Condition: GOOD
[2017-03-28] MEDS ORDERED: ceFAZolin 2 GM in Sodium Chloride 0.9% 100 ML IVPB ONE (11:15)
[2017-03-28] MEDS ORDERED: Dextrose 5%/0.45% NS 1,000 ML IV SCH (11:15)
[2017-03-28 11:31] LABS: BASO # 0.01 K/mm3 (0.0-2.0); BASO % 0.1 % (0.0-3.0); EOS # 0.2 (0.0-0.7); EOS % 1.8 % (1.5-5.0); GRAN # 8.52 (1.4-6.5); GRAN % 73.3 % (50.0-68.0); HEMOGLOBIN 12.5 gm/dL (14.0-18.0); LYMPH # 2.2 (1.2-3.4); LYMPH % 18.8 % (22.0-35.0); MEAN CORPUSCULAR HEMOGLOBIN 29.6 pg (25.0-35.0); MEAN CORPUSCULAR HGB CONC 32.6 g/dl (31.0-37.0); MEAN PLATELET VOLUME 8.9 fl (7.0-11.0); MONO # 0.7 (0.1-0.6); PLATELET COUNT 266 10^3/uL (120.0-450.0); RBC 4.22 10^6/uL (3.5-6.1); RED CELL DISTRIBUTION WIDTH 13.7 % (11.5-14.5); WHITE BLOOD COUNT 11.6 10^3/ul (4.5-11.0)
[2017-03-28 11:40] LABS: ALB/GLOB RATIO 0.7 (1.1-1.8); ALBUMIN 3.2 g/dL (3.0-4.8); ALT/SGPT 12 U/L (7-56); AST/SGOT 37 U/L (15-59); BLOOD UREA NITROGEN 21 mg/dL (7-21); GFR AFRICAN-AMERICAN > 60; GFR NON-AFRICAN AMERICAN > 60
[2017-03-28] MEDS ORDERED: Sodium Chloride 0.9% 1,000 ML IV SCH (12:30)
--- NOTE | 2017-03-28 12:39 | CARD ---
APPROVED REPORT EKG Measurement Heart [id number] <Conclusion> Normal sinus rhythm Left axis deviation Incomplete right bundle branch block Abnormal ECG
--- NOTE | 2017-03-28 13:37 | CP.PCM.HP ---
Addendum entered and electronically signed by Geovany Stern DO 03/28/17 23:03: Patient seen and examined with Dr. Vera. Agree with exam and plan. 72 yo M with DM, HTN, HLD returning after 2nd opinion confirming need for amputation of R 1st toe, now amenable to procedure by podiatry. Pending amputation today. Continue IV abx coverage for possible osteomyelitis. Original Note: <MISAEL VERA - Last Filed: 03/28/17 13:54> History of Present Illness - History of Present Illness History of Present Illness: Patient is a 72 yo male with past medical history of diabetes, hypertension, and HPL who was admitted to the hospital day for further evaluation and management of a wound located on the 1st digit of the right foot after being sent in from outpatient office by Dr. Baron. While here, patient was seen by IR, Podiatry, and ID. As per ID, patient will need another prolonged course of antibiotics, so a PICC line was placed by IR. Podiatry saw the patient and took to the OR for debridement, but after worsening of the site despite IV antibiotics and the debridement, recommended amputation of the toe. Patient was amenable to this, but patient's family was adamant that he be discharged so they could obtain a second opinion. As per case management, home antibiotic infusions through the patient's PICC line were arranged, so patient was discharged to home. Patient and family at bedside instructed to return to the hospital with worsening symptoms or if the patient elected to proceed with the amputation. After being discharged patient obtained a second opinion which also recommended amputation. Patient followed Dr. Baron's recommendation to return [place] [facility] to be admitted for amputation of 1st digit of right foot. Patient is willingly here for elective amputation and is currently receiving proper fluids and antibiotic treatment. Patient was assessed for preop evaluation and is clear for surgery. Present on Admission - Present on Admission Any Indicators Present on Admission: No Review of Systems - Constitutional Constitutional: absent: Chills, Fever, Headache - Cardiovascular Cardiovascular: absent: Chest Pain, Dyspnea, Pedal Edema - Respiratory Respiratory: absent: Cough, Dyspnea - Gastrointestinal Gastrointestinal: absent: Abdominal Pain, Bloating - Integumentary Integumentary: Dry Skin, Skin Ulcer - Neurological Neurological: absent: Abnormal Gait, Numbness, Loss of Vision Past Patient History - Infectious Disease Hx of Infectious Diseases: None - Past Social History Smoking Status: Never Smoked - CARDIAC Hx Hypertension: Yes - PULMONARY Hx Respiratory Disorders: Yes Other/Comment: 5 broken ribs and scar tissue to R lung - NEUROLOGICAL Hx Neurological Disorder: No - HEENT Hx HEENT Problems: Yes Other/Comment: glasses - RENAL Hx Chronic Kidney Disease: No - ENDOCRINE/METABOLIC Hx Diabetes Mellitus Type 2: Yes - HEMATOLOGICAL/ONCOLOGICAL Hx Blood Transfusions: No - INTEGUMENTARY Hx Psoriasis: Yes - MUSCULOSKELETAL/RHEUMATOLOGICAL Hx Falls: No - GASTROINTESTINAL Hx Gastrointestinal Disorders: No - GENITOURINARY/GYNECOLOGICAL Hx Genitourinary Disorders: No - PSYCHIATRIC Hx Psychophysiologic Disorder: No Hx Substance Use: No - SURGICAL HISTORY Hx Surgeries: Yes - ANESTHESIA Hx Anesthesia: Yes Hx Anesthesia Reactions: No Hx Malignant Hyperthermia: No Meds Allergies/Adverse Reactions: Allergies Allergy/AdvReac Type Severity Reaction Status Date / Time kiwi Allergy RASH Verified 03/28/17 10:18 strawberry AdvReac RASH Verified 03/28/17 10:18 rasberries AdvReac Intermediate RASH Uncoded 03/28/17 10:18 Physical Exam - Constitutional Appears: Well, Non-toxic - Head Exam Head Exam: ATRAUMATIC, NORMAL INSPECTION, NORMOCEPHALIC - Eye Exam Eye Exam: Normal appearance Pupil Exam: NORMAL ACCOMODATION - ENT Exam ENT Exam: Mucous Membranes Moist, Normal Exam - Respiratory Exam Respiratory Exam: Clear to Auscultation Bilateral, NORMAL BREATHING PATTERN - Cardiovascular Exam Cardiovascular Exam: REGULAR RHYTHM, RRR, +S1, +S2 - GI/Abdominal Exam GI & Abdominal Exam: Distended, Normal Bowel Sounds, Soft. absent: Guarding, Tenderness - Neurological Exam Neurological exam: CN II-XII Intact, Normal Gait, Oriented x3 - Skin Skin Exam: Dry, Intact Results - Vital Signs Recent Vital Signs: Last Vital Signs Temp 98.0 F 03/28/17 12:45 Pulse 81 03/28/17 12:45 Resp 18 03/28/17 12:45 BP 154/92 H 03/28/17 12:45 Pulse Ox 95 03/28/17 12:22 - Labs Result Diagrams: 03/28/17 11:19 03/28/17 11:19 Labs: Laboratory Results - last 24 hr 03/28/17 03/28/17 03/28/17 11:19 11:19 11:19 WBC 11.6 H RBC 4.22 Hgb 12.5 L Hct 38.4 L MCV 91.0 MCH 29.6 MCHC 32.6 RDW 13.7 Plt Count 266 MPV 8.9 Gran % 73.3 H Lymph % (Auto) 18.8 L [place] % (Auto) 6.0 Eos % (Auto) 1.8 Baso % (Auto) 0.1 Gran # 8.52 H Lymph # 2.2 [place] # 0.7 H Eos # 0.2 Baso # 0.01 Sodium 138 Potassium 4.5 Chloride 103 Carbon Dioxide 28 Anion Gap 12 BUN 21 Creatinine 1.1 Est GFR ( Amer) > 60 Est GFR (Non-Af Amer) > 60 Random Glucose 181 H Calcium 9.0 Total Bilirubin 0.6 AST 37 ALT 12 Alkaline Phosphatase 157 H Total Protein 7.9 Albumin 3.2 Globulin 4.7 Albumin/Globulin Ratio 0.7 L BBK History Checked Patient has bt Assessment & Plan - Assessment and Plan (Free Text) Assessment: Patient is a 72 year old male with PMHx of diabetes, hypertension, HPL, and is being admitted [place] [facility] [place] for amputation of right foot 1st digit by podiatry. Plan: 1. Wound with leukocytosis details- 1st digit of right foot; PVD - wound culture- grew light gram negative rods and staph aureus - silver sulfadiazene - continue ancef 2g q8h- received 1st dose this a.m. - ID consult- will follow through with recommendations - dry MRI of right foot reviewed-Cellulitis medial aspect of the big toe. No evidence of osteomyelitis - Podiatry consulted-amputation of right foot 1st digit will be performed today 2. Diabetes - accu checks ACHS - Insulin lispro 3. HTN - hold home lisinopril-Hydrochlorothiazide - patient on cozar 4. HPL - continue lipitor 20mg 5. Psoriasis - hold home otezla as patient doesn't wish to take right now 6. Elevated Alkaline Phosphatase - LFTs reviewed, stable 7. PPX - protonix - subq heparin Patient discussed with attending, Dr. Greene <Amrit Greene - Last Filed: 03/29/17 07:39> Results - Vital Signs Recent Vital Signs: Last Vital Signs Temp 98.6 F 03/28/17 22:00 Pulse 83 03/28/17 22:00 Resp 20 03/28/17 22:00 BP 148/89 03/28/17 22:00 Pulse Ox 97 03/28/17 19:20 - Labs Result Diagrams: 03/28/17 11:19 03/28/17 11:19 Labs: Laboratory Results - last 24 hr 03/28/17 03/28/17 03/28/17 11:19 11:19 11:19 WBC 11.6 H RBC 4.22 Hgb 12.5 L Hct 38.4 L MCV 91.0 MCH 29.6 MCHC 32.6 RDW 13.7 Plt Count 266 MPV 8.9 Gran % 73.3 H Lymph % (Auto) 18.8 L [place] % (Auto) 6.0 Eos % (Auto) 1.8 Baso % (Auto) 0.1 Gran # 8.52 H Lymph # 2.2 [place] # 0.7 H Eos # 0.2 Baso # 0.01 PT INR APTT Sodium 138 Potassium 4.5 Chloride 103 Carbon Dioxide 28 Anion Gap 12 BUN 21 Creatinine 1.1 Est GFR ( Amer) > 60 Est GFR (Non-Af Amer) > 60 POC Glucose (mg/dL) Random Glucose 181 H Calcium 9.0 Total Bilirubin 0.6 AST 37 ALT 12 Alkaline Phosphatase 157 H Total Protein 7.9 Albumin 3.2 Globulin 4.7 Albumin/Globulin Ratio 0.7 L Blood Type O POSITIVE Antibody Screen Negative BBK History Checked Patient has bt 03/28/17 03/28/17 03/28/17 13:43 16:39 22:00 WBC RBC Hgb Hct MCV MCH MCHC RDW Plt Count MPV Gran % Lymph % (Auto) [place] % (Auto) Eos % (Auto) Baso % (Auto) Gran # Lymph # [place] # Eos # Baso # PT 11.4 INR 1.06 APTT 26.6 Sodium Potassium Chloride Carbon Dioxide Anion Gap BUN Creatinine Est GFR ( Amer) Est GFR (Non-Af Amer) POC Glucose (mg/dL) 98 167 H Random Glucose Calcium Total Bilirubin AST ALT Alkaline Phosphatase Total Protein Albumin Globulin Albumin/Globulin Ratio Blood Type Antibody Screen BBK History Checked Assessment & Plan - Assessment and Plan (Free Text) Plan: A/P: 1. Right foot great toe and hallux, diabetic abscess and gangrene. 2. Methicillin-sensitive Staphylococcus aureus and Raoultella ornithinolytica, right foot great toe abscess and gangrene and diabetic foot ulceration. 3. Insulin-requiring diabetes mellitus, uncontrolled. 4. Diabetic peripheral neuropathy. 5. Right foot great toe hallux, diabetic ulceration, abscess and gangrene. 6. Status post left upper extremity PICC line placement. 7. History of psoriasis. 8. Hypertension. 9. Low-grade fever. 10. Obesity with elevated body mass index. 11. Leukocytosis with granulocytosis. 12. Normocytic anemia. 13. Elevated erythrocyte sedimentation rate of 25. 14. Insulin-requiring diabetes mellitus, uncontrolled with hemoglobin A1c of 9.7 and elevated fructosamine of 305. 15. Hypovitaminosis D. 16. History of hypercholesterolemia. 17. Elevated C-reactive protein of greater than 15. 18. Glycosuria. 19. Obesity. PLAN: PODIATRY INTERVENTION FOR RIGHT BIG TOE AMPUTATION. CONTINUE IV ABX. ID/PODIATRY EVAL.
[2017-03-28 13:59] LABS: INR 1.06 (0.93-1.08); PARTIAL THROMBOPLASTIN TIME 26.6 Seconds (23.7-30.8); PROTHROMBIN TIME 11.4 Seconds (9.9-11.8)
[2017-03-28] MEDS ORDERED: ceFAZolin 2 GM in Sodium Chloride 0.9% 100 ML IVPB SCH (14:00)
[2017-03-28] MEDS ORDERED: ZOCOR 20 MG PO SCH (14:15)
--- NOTE | 2017-03-28 15:35 | CP.PCM.CON ---
<Fadumo Morrow - Last Filed: 03/28/17 15:30> History of Present Illness - History of Present Illness History of Present Illness: This is a 72 yo male diabetic male pt who was seen in the ED today for gangrene and infection of right foot (hallux). Pt well-known to podiatry service and recently [place] [facility] [place] problem. Dr. Baron had recommended amputation of the right hallux, of which pt was agreeable to, however pt's family was adamant about seeking a second opinion at [place]. Pt's family discussed with Dr. Baron last night that they were recommended the same treatment by the second opinion physician. Pt presented back to ED today with daughter present for pre-operative evaluation for the planned foot surgery. Daughter states that patient has been receiving abx via PICC at home as scheduled. Pt states he has not had anything by mouth since 7am this morning as directed. Denies f/n/v/c/sob/cp at this time. Pt is agreeable for sx today with Dr. Baron. Denies any other problems at this time. Review of Systems - Review of Systems Review of Systems: as per HPI Past Patient History - Infectious Disease Hx of Infectious Diseases: None - Past Social History Smoking Status: Never Smoked - CARDIAC Hx Hypertension: Yes - PULMONARY Hx Respiratory Disorders: Yes Other/Comment: 5 broken ribs and scar tissue to R lung - NEUROLOGICAL Hx Neurological Disorder: No - HEENT Hx HEENT Problems: Yes Other/Comment: glasses - RENAL Hx Chronic Kidney Disease: No - ENDOCRINE/METABOLIC Hx Diabetes Mellitus Type 2: Yes - HEMATOLOGICAL/ONCOLOGICAL Hx Blood Transfusions: No - INTEGUMENTARY Hx Psoriasis: Yes - MUSCULOSKELETAL/RHEUMATOLOGICAL Hx Falls: No - GASTROINTESTINAL Hx Gastrointestinal Disorders: No - GENITOURINARY/GYNECOLOGICAL Hx Genitourinary Disorders: No - PSYCHIATRIC Hx Psychophysiologic Disorder: No Hx Substance Use: No - SURGICAL HISTORY Hx Surgeries: Yes - ANESTHESIA Hx Anesthesia: Yes Hx Anesthesia Reactions: No Hx Malignant Hyperthermia: No Meds Allergies/Adverse Reactions: Allergies Allergy/AdvReac Type Severity Reaction Status Date / Time kiwi Allergy RASH Verified 03/28/17 10:18 strawberry AdvReac RASH Verified 03/28/17 10:18 rasberries AdvReac Intermediate RASH Uncoded 03/28/17 10:18 - Medications Medications: Current Medications Atorvastatin Calcium (Lipitor) 20 mg PO DIN GERRY Atorvastatin Calcium (Lipitor) 10 mg PO DIN GERRY Heparin Sodium (Porcine) (Heparin) 5,000 units SC Q8 GERRY PRN Reason: Protocol Dextrose/Sodium Chloride (Dextrose 5%/0.45% Ns 1000 Ml) 1,000 mls @ 75 mls/hr IV .[id number] GERRY Last Admin: 03/28/17 11:55 Dose: 75 mls/hr Cefazolin Sodium 2 gm/ Sodium (Chloride) 100 mls @ 200 mls/hr IVPB Q8 GERRY Insulin Human Lispro (Humalog High) 0 units SC ACHS GERRY PRN Reason: Protocol Insulin Human Lispro (Humalog) 2 units SC ACBL GERRY Insulin Human Lispro (Humalog) 2 units SC ACD GERRY Losartan Potassium (Cozaar) 25 mg PO DAILY GERRY Non-Formulary Medication (Victoza) 1.8 units SUBCUT DAILY GERRY Pantoprazole Sodium (Protonix Ec Tab) 40 mg PO ACB GERRY Physical Exam - Constitutional Appears: Non-toxic, No Acute Distress - Extremities Exam Additional comments: Dressing to right foot appears c/d/i, dressing left intact for surgery later today - Neurological Exam Neurological exam: Alert, CN II-XII Intact, Oriented x3 - Psychiatric Exam Psychiatric exam: Normal Affect, Normal Mood Results - Vital Signs Recent Vital Signs: Last Vital Signs Temp 98.0 F 03/28/17 12:45 Pulse 81 03/28/17 12:45 Resp 18 03/28/17 12:45 BP 154/92 H 03/28/17 12:45 Pulse Ox 95 03/28/17 12:22 - Labs Result Diagrams: 03/28/17 11:19 03/28/17 11:19 Labs: Laboratory Results - last 24 hr 03/28/17 03/28/17 03/28/17 11:19 11:19 11:19 WBC 11.6 H RBC 4.22 Hgb 12.5 L Hct 38.4 L MCV 91.0 MCH 29.6 MCHC 32.6 RDW 13.7 Plt Count 266 MPV 8.9 Gran % 73.3 H Lymph % (Auto) 18.8 L [place] % (Auto) 6.0 Eos % (Auto) 1.8 Baso % (Auto) 0.1 Gran # 8.52 H Lymph # 2.2 [place] # 0.7 H Eos # 0.2 Baso # 0.01 PT INR APTT Sodium 138 Potassium 4.5 Chloride 103 Carbon Dioxide 28 Anion Gap 12 BUN 21 Creatinine 1.1 Est GFR ( Amer) > 60 Est GFR (Non-Af Amer) > 60 Random Glucose 181 H Calcium 9.0 Total Bilirubin 0.6 AST 37 ALT 12 Alkaline Phosphatase 157 H Total Protein 7.9 Albumin 3.2 Globulin 4.7 Albumin/Globulin Ratio 0.7 L Blood Type O POSITIVE Antibody Screen Negative BBK History Checked Patient has bt 03/28/17 13:43 WBC RBC Hgb Hct MCV MCH MCHC RDW Plt Count MPV Gran % Lymph % (Auto) [place] % (Auto) Eos % (Auto) Baso % (Auto) Gran # Lymph # [place] # Eos # Baso # PT 11.4 INR 1.06 APTT 26.6 Sodium Potassium Chloride Carbon Dioxide Anion Gap BUN Creatinine Est GFR ( Amer) Est GFR (Non-Af Amer) Random Glucose Calcium Total Bilirubin AST ALT Alkaline Phosphatase Total Protein Albumin Globulin Albumin/Globulin Ratio Blood Type Antibody Screen BBK History Checked Assessment & Plan - Assessment and Plan (Free Text) Assessment: 72 yo diabetic male patient w/ infection and wet gangrene hallux right foot Plan: Pt S&E at bedside in ED Plan discussed with attending Dr. Baron Chart, labs and vitals reviewed: afebrile, wbc elevated 11.6 (up from 10.8) NPO status confirmed and maintained Medical clearance and all pre-op testing in chart All questions and concerns addressed with pt and pt's daughter to satisfaction No guarantees given nor implied For OR today w/ Dr. Baron for right foot hallux amputation this afternoon 03/28 Podiatry will follow while pt remains in house. <Eileen Baron - Last Filed: 03/30/17 14:24> Meds - Medications Medications: Current Medications Acetaminophen (Tylenol 325mg Tab) 650 mg PO Q4H PRN PRN Reason: Pain, Mild (1-3) Last Admin: 03/29/17 15:08 Dose: 650 mg Atorvastatin Calcium (Lipitor) 10 mg PO DIN GERRY Last Admin: 03/29/17 16:56 Dose: 10 mg Heparin Sodium (Porcine) (Heparin) 5,000 units SC Q8 GERRY PRN Reason: Protocol Last Admin: 03/30/17 09:32 Dose: 5,000 units Meropenem 1g/NS 100mL IVPB (Meropenem 1g/Ns 100ml Ivpb) 1 gm in 100 mls @ 100 mls/hr IVPB Q8 GERRY PRN Reason: Protocol Stop: 04/06/17 22:01 Last Admin: 03/30/17 13:55 Dose: 100 mls/hr Insulin Human Lispro (Humalog High) 0 units SC ACHS GERRY PRN Reason: Protocol Last Admin: 03/30/17 11:53 Dose: 4 units Insulin Human Lispro (Humalog) 2 units SC ACBL [facility] Last Admin: 03/30/17 11:54 Dose: 2 units Insulin Human Lispro (Humalog) 2 units SC ACD [facility] Last Admin: 03/29/17 16:57 Dose: 2 units Losartan Potassium (Cozaar) 25 mg PO DAILY [facility] Last Admin: 03/30/17 09:34 Dose: 25 mg Non-Formulary Medication (Victoza) 1.8 units SUBCUT DAILY [facility] Last Admin: 03/30/17 09:32 Dose: Not Given Ondansetron HCl (Zofran Inj) 4 mg IVP Q4H PRN PRN Reason: Nausea/Vomiting Oxycodone/Acetaminophen (Percocet 5/325 Mg Tab) 1 tab PO Q4H PRN PRN Reason: Pain, moderate (4-7) Stop: 03/31/17 18:54 Pantoprazole Sodium (Protonix Ec Tab) 40 mg PO ACB [facility] Last Admin: 03/30/17 08:28 Dose: 40 mg Results - Vital Signs Recent Vital Signs: Last Vital Signs Temp 98.6 F 03/30/17 08:02 Pulse 80 03/30/17 08:02 Resp 20 03/30/17 08:02 BP 152/71 H 03/30/17 09:34 Pulse Ox 96 03/30/17 08:02 - Labs Result Diagrams: 03/30/17 05:30 03/30/17 07:00 Labs: Laboratory Results - last 24 hr 03/29/17 03/29/17 03/29/17 14:21 14:21 14:21 WBC 12.1 H RBC 3.99 Hgb 11.8 L Hct 35.9 L MCV 90.0 MCH 29.6 MCHC 32.9 RDW 13.6 Plt Count 217 MPV 8.7 Gran % 73.2 H Lymph % (Auto) 16.9 L [place] % (Auto) 7.6 H Eos % (Auto) 2.1 Baso % (Auto) 0.2 Gran # 8.82 H Lymph # 2.0 [place] # 0.9 H Eos # 0.3 Baso # 0.02 ESR 63 H Sodium 135 Potassium 4.4 Chloride 101 Carbon Dioxide 28 Anion Gap 10 BUN 18 Creatinine 1.1 Est GFR ( Amer) > 60 Est GFR (Non-Af Amer) > 60 Random Glucose 204 H Calcium 8.8 Phosphorus Magnesium 1.5 L Total Bilirubin 0.4 Direct Bilirubin 0.3 AST 26 ALT 13 Alkaline Phosphatase 139 H C-React Prot High Sens > 15.00 H Total Protein 7.5 Albumin 3.1 Globulin 4.5 Albumin/Globulin Ratio 0.7 L 03/30/17 03/30/17 03/30/17 05:30 05:30 07:00 WBC 12.3 H RBC 4.01 Hgb 11.9 L Hct 36.0 L MCV 89.8 MCH 29.7 MCHC 33.1 RDW 13.7 Plt Count 263 MPV 8.7 Gran % 69.8 H Lymph % (Auto) 20.1 L [place] % (Auto) 7.2 H Eos % (Auto) 2.7 Baso % (Auto) 0.2 Gran # 8.59 H Lymph # 2.5 [place] # 0.9 H Eos # 0.3 Baso # 0.02 ESR 45 H Sodium 138 Potassium 4.3 Chloride 100 Carbon Dioxide 31 Anion Gap 11 BUN 19 Creatinine 1.0 Est GFR ( Amer) > 60 Est GFR (Non-Af Amer) > 60 Random Glucose 134 H Calcium 8.6 Phosphorus 3.0 Magnesium 2.0 Total Bilirubin 0.4 Direct Bilirubin AST 19 ALT 14 Alkaline Phosphatase 139 H C-React Prot High Sens > 15.00 H Total Protein 7.0 Albumin 2.8 L Globulin 4.2 Albumin/Globulin Ratio 0.7 L Attending/Attestation - Attestation I have personally seen and examined this patient.: Yes I have fully participated in the care of the patient.: Yes I have reviewed all pertinent clinical information: Yes
[2017-03-28] MEDS ORDERED: INSULIN ASPART SUBCUT SCH (16:30)
[2017-03-28] MEDS ORDERED: HYDROmorphone 0.5 mg/0.5 ml ISec IVP PRN (17:11)
[2017-03-28] MEDS ORDERED: Lactated Ringer's 1,000 ML IV SCH (17:15)
[2017-03-28] MEDS ORDERED: Lidocaine 1% Inj (20ml) ONE (17:17)
[2017-03-28] MEDS ORDERED: Midazolam 2 MG/2 ML VIAL ONE (17:17)
[2017-03-28] MEDS ORDERED: Propofol 10 mg/ml Inj (20 ML) ONE (17:17)
[2017-03-28] MEDS ORDERED: Bupivacaine 0.5% Inj(30mL) IJ ONE (17:30)
[2017-03-28] MEDS ORDERED: Lidocaine 2% Inj (20ml) IJ ONE (17:30)
[2017-03-28] MEDS ORDERED: Phenylephrine 10 mg/ml Inj ONE (18:25)
--- NOTE | 2017-03-28 18:51 | PCM.SURG1 ---
Surgeon's Initial Post Op Note - Surgeon's Notes Surgeon: Dr. Baron Line Construction Superintendent: Dr. Gladys Morrow PGY-2 Type of Anesthesia: IV Sedation, Local Anesthesia Administered By: Dr. Dario MD Pre-Operative Diagnosis: gangrene of hallux right foot Operative Findings: see operative report Post-Operative Diagnosis: same Operation Performed: partial 1st ray resection with hallux amputation right foot Specimen/Specimens Removed: hallux bone and soft tissue (right foot), 1st metatarsal head (right foot) Estimated Blood Loss: EBL {In ML}: 25 Blood Products Given: N/A Drains Used: Hesham Chadwick Post-Op Condition: Good Date of Surgery/Procedure: 03/28/17 Time of Surgery/Procedure: 17:30
[2017-03-28] MEDS ORDERED: Oxycodone/Acetaminophen 5/325 mg Tab PO PRN (18:53)
--- NOTE | 2017-03-28 19:00 | PCM.OP ---
Operative Report - Operative Report Date of Surgery/Procedure: 03/28/17 Time of Surgery/Procedure: 17:30 Surgeon: Dr. Tod DPM Recreational Specialist: Dr. Fadumo Morrow DPM PGY-2 Anesthesia/Sedation: IV sedation with local Pre-Operative Diagnosis: gangrene of hallux right foot Post-Operative Diagnosis: gangrene of hallux right foot Indication for Surgery: The patient is a 72 year-old male with the above diagnoses. The patient has exhausted conservative treatment at this time and now requires surgical intervention.The patient signed the consent after careful explanation of all risks, benefits, complication and alternatives for surgical procedure. No guarantees were given nor implied. NPO status was confirmed prior to taking patient to the operating room. Operative Findings: Preparation: The patient was brought to the operating room and placed on the operating room table in supine position. Tournique was not requried fro this procedure After induction of IV sedation, the patient received a total of 10 mL of 1:1 mixture of 0.5% Marcaine and 2% lidocaine plain in local block fashion to the right foot. Once local anesthesia was achieved, the right foot was then prepped and draped in usual sterile manner and the procedure began. Procedure: Attention was then drawn to the dorsal aspect of the hallux of right foot where racket-type incision was made circumferentially at the level of the 1st metatarsophalangeal joint using a #15 blade. Using a bone clamp to stabilize the hallux, the hallux was then disarticulated from the foot at the level of 1st MTPJ. This specimen was then passed from the operative field and sent to pathology. Using a fresh #15 blade, all necrotic and non-viable tissue was then excisionally debrided from surgical site. Using a sagittal saw, the head of the 1st metatarsal was then resected and passed from the operative field and sent for pathology Healthy bleeding was noted from the metatarsal bone and surroudning soft tissue. Care was taken to cauterize all bleeders as needed and care was taken to avoid all neurovasc structures. A deep wound culture was then taken of the surgical wound and sent to pathology for culture and sensitivities. The surgical site was then copiously flushed with the Simpulse pulse lavage system. At this time a fresh # 15 blade was used to make a stab incision to the proximal-medial aspect of the incision site and sutured to skin. At this time #2-0 vicryl suture was used to reapproximate the subcutaneous tissue layer. Using #3-0 nylon the skin edges were then reapproximated using combination simple and horizontal mattress technique.The right foot was then dressed xeroform, DSD, ABD, kerlix and coban. Immediate capillary refill time was noted to the right foot remaining digits. Procedure/Operation Description: partial first ray amputation with amputation of hallux right foot Estimated Blood Loss: 25 Blood Replaced: none Sponge/Instrument Count: correct Drains: NOEMI drain x 1 Complications: none Specimen: bone and soft tissue right hallux, bone 1st metatarsal head Discharge & Condition: The patient tolerated the anesthesia and procedure well and was escorted to the recovery room with vital signs stable and neurovascular status intact to the right. foot. Pt will be on bedrest this evening and may weight bear as tolerated tomororw with forefoot releif shoe. Podiatry will follow closely while in house. This patient will follow up with Dr. Baron as outpatient.
[2017-03-28] MEDS: Insulin Lispro (HUMAlog) HIGH Coverage SC SCH ×2 (20:43→22:08)
[2017-03-29] MEDS ORDERED: INSULIN ASPART SUBCUT SCH (07:30)
[2017-03-29] MEDS ORDERED: ceFAZolin 2 GM in Sodium Chloride 0.9% 100 ML IVPB SCH (07:45)
--- NOTE | 2017-03-29 08:56 | RAD ---
PROCEDURE: Right Foot Radiographs. HISTORY: s/p right hallux amputation COMPARISON: None. FINDINGS: BONES: Recent amputation of big toe. Surgical drain in place. The remainder the foot is unremarkable JOINTS: Normal. SOFT TISSUES: Normal. OTHER FINDINGS: None. IMPRESSION: As above
[2017-03-29] MEDS ORDERED: LIRAGLUTIDE SUBCUT SCH (10:00)
--- NOTE | 2017-03-29 10:10 | CP.PCM.PN ---
Subjective - Date & Time of Evaluation Date of Evaluation: 03/29/17 Time of Evaluation: 07:00 - Subjective Subjective: This is a progress note for Dr. Greene's service Patient was seen today at bedside in no acute distress, s/p right foot hallux amputation. Patient states he had minimal pain last night which was relieved with tylenol. He states that he slept well, and has no complaints or questions at the time. He denies chest pain, fevers, chills, shortness of breath, n/v/d, headache. Objective - Vital Signs/Intake and Output Vital Signs (last 24 hours): Temp Pulse Resp BP Pulse Ox 98.6 F 83 20 148/89 97 03/28/17 22:00 03/28/17 22:00 03/28/17 22:00 03/28/17 22:00 03/28/17 19:20 Intake and Output: 03/29/17 03/29/17 06:59 18:59 Intake Total 240 Output Total 725 Balance -485 - Medications Medications: Current Medications Acetaminophen (Tylenol 325mg Tab) 650 mg PO Q4H PRN PRN Reason: Pain, Mild (1-3) Last Admin: 03/29/17 01:20 Dose: 650 mg Atorvastatin Calcium (Lipitor) 10 mg PO DIN GERRY Heparin Sodium (Porcine) (Heparin) 5,000 units SC Q8 GERYR PRN Reason: Protocol Cefazolin Sodium 2 gm/ Sodium (Chloride) 100 mls @ 200 mls/hr IVPB Q8H GERRY PRN Reason: Protocol Stop: 04/08/17 00:14 Insulin Human Lispro (Humalog High) 0 units SC ACHS G[facility]Y PRN Reason: Protocol Last Admin: 03/28/17 22:08 Dose: Not Given Insulin Human Lispro (Humalog) 2 units SC ACBL [facility] Insulin Human Lispro (Humalog) 2 units SC ACD [facility] Losartan Potassium (Cozaar) 25 mg PO DAILY [facility] Non-Formulary Medication (Victoza) 1.8 units SUBCUT DAILY [facility] Ondansetron HCl (Zofran Inj) 4 mg IVP ONCE PRN PRN Reason: Nausea/Vomiting Ondansetron HCl (Zofran Inj) 4 mg IVP Q4H PRN PRN Reason: Nausea/Vomiting Oxycodone/Acetaminophen (Percocet 5/325 Mg Tab) 1 tab PO Q4H PRN PRN Reason: Pain, moderate (4-7) Stop: 03/31/17 18:54 Pantoprazole Sodium (Protonix Ec Tab) 40 mg PO ACB GERRY - Labs Labs: 03/28/17 11:19 03/28/17 11:19 PT 11.4 Seconds (9.9-11.8) 03/28/17 13:43 INR 1.06 (0.93-1.08) 03/28/17 13:43 APTT 26.6 Seconds (23.7-30.8) 03/28/17 13:43 - Constitutional Appears: Well, Non-toxic, No Acute Distress - Head Exam Head Exam: ATRAUMATIC, NORMAL INSPECTION, NORMOCEPHALIC - Eye Exam Eye Exam: EOMI, Normal appearance - ENT Exam ENT Exam: Mucous Membranes Moist, Normal Exam - Respiratory Exam Respiratory Exam: Clear to Ausculation Bilateral, NORMAL BREATHING PATTERN. absent: Rales, Wheezes - Cardiovascular Exam Cardiovascular Exam: REGULAR RHYTHM, +S1, +S2 - GI/Abdominal Exam GI & Abdominal Exam: Soft, Normal Bowel Sounds - Neurological Exam Neurological Exam: Alert, Awake, Oriented x3 - Skin Skin Exam: Warm Additional comments: Right foot was warm to touch. - Additional Findings Additional findings: Drainage is dark red, non purulent. Assessment and Plan - Assessment and Plan (Free Text) Assessment: 72 year old male PMH DM II, HTN, and HLD here for amputation of hallux of right foot. Plan: 1. Right Hallux Amputation - Warm to touch, drainage is red non purulent - Will continue to monitor - Podiatry will be following up with case 2. Cellulitis - ID consulted - Cefazolin 2 gm IVPB q 8H - Will monitor ESR and CRP 3. DM II - Continue with Lispro 2 units SC - Continue with Victoza subcut 1.8 units 4. HTN - Continue with Losartan 25 mg qD 5. HLD - Continue with Lipitor 10 mg PO DIN DVT/GI prophylaxis- Heparin 5000 IU subq q 12 hours/ Protonix 40 g qD Case was discussed with Dr. Jc Vera D.O. PGY1
--- NOTE | 2017-03-29 10:44 | CP.PCM.PN ---
Subjective - Date & Time of Evaluation Date of Evaluation: 03/29/17 Time of Evaluation: 09:45 - Subjective Subjective: 72 yo diabetic male patient seen at bedside this morning POD#1 amputation of right hallux. Pt seen resting comfortably in bed at time of visit. Pt denies any acute events overnight. Dressing appears c/d/i to right foot. Denies any pain or discomfort at this time. Denies f/n/v/c/sob/cp at this time. Denies any other problems at this time. Objective - Vital Signs/Intake and Output Vital Signs (last 24 hours): Temp Pulse Resp BP Pulse Ox 98.5 F 79 20 130/68 96 03/29/17 07:30 03/29/17 07:30 03/29/17 07:30 03/29/17 07:30 03/29/17 07:30 Intake and Output: 03/29/17 03/29/17 06:59 18:59 Intake Total 240 Output Total 725 Balance -485 - Medications Medications: Current Medications Acetaminophen (Tylenol 325mg Tab) 650 mg PO Q4H PRN PRN Reason: Pain, Mild (1-3) Last Admin: 03/29/17 01:20 Dose: 650 mg Atorvastatin Calcium (Lipitor) 10 mg PO DIN G[facility] Cefazolin Sodium (Ancef) 2 gm IVPB Q8H G[facility]Y PRN Reason: Protocol Heparin Sodium (Porcine) (Heparin) 5,000 units SC Q8 GERRY PRN Reason: Protocol Insulin Human Lispro (Humalog High) 0 units SC ACHS [facility]Y PRN Reason: Protocol Last Admin: 03/28/17 22:08 Dose: Not Given Insulin Human Lispro (Humalog) 2 units SC ACBL [facility] Insulin Human Lispro (Humalog) 2 units SC ACD [facility] Losartan Potassium (Cozaar) 25 mg PO DAILY [facility] Non-Formulary Medication (Victoza) 1.8 units SUBCUT DAILY [facility] Ondansetron HCl (Zofran Inj) 4 mg IVP ONCE PRN PRN Reason: Nausea/Vomiting Ondansetron HCl (Zofran Inj) 4 mg IVP Q4H PRN PRN Reason: Nausea/Vomiting Oxycodone/Acetaminophen (Percocet 5/325 Mg Tab) 1 tab PO Q4H PRN PRN Reason: Pain, moderate (4-7) Stop: 03/31/17 18:54 Pantoprazole Sodium (Protonix Ec Tab) 40 mg PO ACB [facility] - Labs Labs: 03/28/17 11:19 03/28/17 11:19 PT 11.4 Seconds (9.9-11.8) 03/28/17 13:43 INR 1.06 (0.93-1.08) 03/28/17 13:43 APTT 26.6 Seconds (23.7-30.8) 03/28/17 13:43 - Constitutional Appears: Well, Non-toxic, No Acute Distress - Extremities Exam Extremities Exam: absent: Calf Tenderness Additional comments: Right foot focused: VASC- DP/PT pulses non-palpable, skin temp runs warm to cool, cap refill < 4 sec to all digits and to surgical site, slight edema noted DERM- surgical incision site appears c/d/i, no dehisence, sutures well-coapted, slight sero-sanguinous drainage noted to bandage, no active bleeding noted, no erythema, no signs infection, 50 cc of sero-sanguinous drainage noted to NOEMI drain NEURO- pedal sensation is grossly diminished ORTHO- s/p amputation of right hallux, no pain to incision site - Neurological Exam Neurological Exam: Alert, Awake, Oriented x3 - Psychiatric Exam Psychiatric exam: Normal Affect, Normal Mood Assessment and Plan - Assessment and Plan (Free Text) Assessment: 72 yo diabetic male pt, 1 day s/p right foot hallux amputation. Plan: Pt S&E at bedside Chart, plans and vitals reviewed: afebrile, WBC 11.6 Recommend holding Heparin until tomorrow morning Friday 03/30 to control bleeding Foot redressed with adaptic, DSD, kerlix and light MERLENE compression Keep dressing c/d/i tomorrow and over weekend Pt may WBAT with forefoot relief shoe to right foot Physical therapy eval pending Surg. pathology and wound cx's pending Stable per podiatry will follow
[2017-03-29] MEDS: LIRAGLUTIDE SUBCUT SCH (10:52)
[2017-03-29] MEDS: Pantoprazole 40 mg EC Tab PO SCH (10:52)
[2017-03-29] MEDS: Insulin Lispro (HUMAlog) HIGH Coverage SC SCH ×4 (10:53→21:43)
[2017-03-29] MEDS: Insulin Lispro 1 UNITS/0.01 ML SC SCH ×3 (10:53→16:57)
[2017-03-29] MEDS ORDERED: Insulin Lispro (HUMAlog) HIGH Coverage SC SCH (11:30)
[2017-03-29 14:25] LABS: BASO # 0.02 K/mm3 (0.0-2.0); BASO % 0.2 % (0.0-3.0); EOS # 0.3 (0.0-0.7); EOS % 2.1 % (1.5-5.0); GRAN # 8.82 (1.4-6.5); GRAN % 73.2 % (50.0-68.0); HEMOGLOBIN 11.8 gm/dL (14.0-18.0); LYMPH % 16.9 % (22.0-35.0); MEAN CORPUSCULAR HEMOGLOBIN 29.6 pg (25.0-35.0); MEAN CORPUSCULAR HGB CONC 32.9 g/dl (31.0-37.0); MEAN PLATELET VOLUME 8.7 fl (7.0-11.0); MONO # 0.9 (0.1-0.6); MONO % 7.6 % (1.0-6.0); PLATELET COUNT 217 10^3/uL (120.0-450.0); RBC 3.99 10^6/uL (3.5-6.1); RED CELL DISTRIBUTION WIDTH 13.6 % (11.5-14.5); WHITE BLOOD COUNT 12.1 10^3/ul (4.5-11.0)
[2017-03-29 14:36] LABS: ALB/GLOB RATIO 0.7 (1.1-1.8); ALBUMIN 3.1 g/dL (3.0-4.8); ALT/SGPT 13 U/L (7-56); AST/SGOT 26 U/L (15-59); BILIRUBIN,DIRECT 0.3 mg/dL (0.0-0.4); BLOOD UREA NITROGEN 18 mg/dL (7-21); CALCIUM 8.8 mg/dL (8.4-10.5); GFR AFRICAN-AMERICAN > 60; GFR NON-AFRICAN AMERICAN > 60; MAGNESIUM 1.5 mg/dL (1.7-2.2)
[2017-03-29] MEDS: Magnesium Sulfate 2 GM in Sodium Chloride 0.9% 100 ML IVPB SCH ×2 (18:39→20:56)
[2017-03-29] MEDS ORDERED: cefTRIAXone 2 GM IN NS 2 GM/100 ML BAG IVPB SCH (22:00)
--- NOTE | 2017-03-29 22:12 | PN ---
DATE: 03/29/2017 The patient seen in room of 576, bed 2. SUBJECTIVE: The patient is seen today, lying in the recliner. The patient is sitting out of bed to chair. The is alert, awake, responsive. Overnight nurses notes were reviewed. The patient underwent right foot toe surgery by Podiatry yesterday, tolerated the procedure well. No adverse event documented according to the nurses notes. The patient slept well overnight. PHYSICAL EXAMINATION VITAL SIGNS: T-Max 98.6, heart rate 79 to 83, blood pressure 135/69 to 148/89. Yesterday, postoperative blood pressure was slightly elevated at 159/70, 161/75. Respirations 18 and O2 sat 96%. HEENT: Normocephalic, atraumatic. Pinkish conjunctivae. Anicteric sclerae. No oropharyngeal lesion. NECK: No neck rigidity. CHEST: Kyphosis. LUNGS: No rales, crackles or wheezing. CARDIOVASCULAR: S1 and S2. Regular rhythm. ABDOMEN: Soft, protuberant. Positive bowel sounds. GENITALIA: Male. RECTAL: Deferred. EXTREMITIES: Shows positive dressing of the right foot. Positive psoriasis of the elbows and knees noted. MUSCULOSKELETAL: Shows body mass index of 35. NEUROLOGIC: Cranial nerves II to XII intact. Gait examination not tested. VASCULAR: Palpable pulses. PSYCHIATRIC: Not applicable. DIAGNOSTIC DATA: On 03/29/2017; WBC 12.1, hemoglobin and hematocrit 11.8 and 35.9, platelets are 217, granulocyte 73%. Sodium 135, potassium 4.4, chloride 101, CO2 of 28, anion gap 10, BUN 18, creatinine 1.1, GFR greater than 60, glucose 204, magnesium 1.5, alk phos is 139. Wound cultures from the right toe, bone cultures growing Gram-negative rods. Blood type O positive. EKG shows left axis deviation, incomplete right bundle-branch block. IMPRESSION 1. Right foot big toe diabetic foot ulceration, gangrene and right foot big toe hallux possible questionable Gram-negative carri, diabetic foot ulceration and gangrene and possible osteomyelitis. 2. Hypertension. 3. Psoriasis. 4. Leukocytosis with granulocytosis. 5. Elevated erythrocyte sedimentation rate of 63. 6. Insulin-requiring diabetes mellitus. 7. Hypomagnesemia. 8. Hyperglycemia. 9. Status post right foot big toe hallux amputation. 10. Gram-negative carri, right foot great toe diabetic foot ulceration versus gangrene versus possible osteomyelitis. 11. Left axis deviation and incomplete right bundle-branch block. 12. Right foot big toe gangrene of the hallux. 13. Status post right foot big toe first ray amputation. 14. Gait dysfunction secondary to right foot great toe amputation. 15. Hypertension. 16. Insulin-requiring diabetes mellitus. 17. Hypomagnesemia. PLAN: At this time, the patient seen by podiatry and infectious disease. The patient seen by physical therapist. Physical therapist evaluation noted which was reinforced to the patient. Physical therapy recommends discharge recommendation home. The patient not a candidate for physical therapy. CURRENT MEDICATIONS: The patient was continued on Ancef 2 g IV q.8 h. which is now changed meropenem 1 g IV q. 9, Cozaar 25 mg daily, heparin 5000 subcu q.8 h., Humalog 2 units with breakfast and lunch and Humalog 2 units with dinner, Humalog high dose sliding scale coverage, Lipitor 10 mg daily. The patient was given magnesium sulfate two riders 2 g, meropenem 1 g IV q.8 h., Percocet 5/325 one tablet q.4 h. p.r.n. The patient is on Protonix 40 daily, Tylenol 650 q.4 h. p.r.n., Victoza 1.8 units subcu daily, Zofran 4 mg IV q.4 h. p.r.n. At the present, the patient's condition, diagnoses, need for further intervention, diagnostic therapeutic intervention explained to the patient. The patient was seen with the medical planner and also with Dr. Hu from infectious disease. The patient was seen and evaluated by transitional care unit. The patient was not acceptable to TCU secondary to insurance issues which was notified to the patient. Amrit Greene MD
[2017-03-29] MEDS: Meropenem 1g/NS 100mL IVPB 1 GM/100 ML PIGGYBACK IVPB SCH (22:19)
--- NOTE | 2017-03-30 01:51 | CON ---
DATE: 03/29/2017 The patient was seen early this morning in room 576, bed 2. CHIEF COMPLAINT: Toe infection from several days. HISTORY OF PRESENT ILLNESS: This is a 72-year-old male with past medical history of hypertension, psoriasis, diabetes mellitus, dyslipidemia with right hallux infection ulcer. The patient was recently in the hospital and was discharged, now returned and was taken to the OR last night and had a surgery by Dr. Baron and had diagnosis of a right foot hallux gangrene and surgery that was done by Dr. Baron and the patient tolerated the IV antibiotics as outpatient and the patient had partial first ray resection with hallux amputation of the right foot, and now, no nausea, no vomiting, no chest pain. No abdominal pain, diarrhea or constipation. PAST MEDICAL HISTORY: Significant for hypertension, psoriasis, diabetes, right hallux foot infection and dyslipidemia. PAST SURGICAL HISTORY: Significant for right inguinal hernia and cervical surgery. ALLERGIES: THE PATIENT IS ALLERGIC TO KIWI, STRAWBERRY AND RASPBERRIES. MEDICATIONS AT HOME: Reviewed. PHYSICAL EXAMINATION: VITAL SIGNS: Temperature is 98, blood pressure of 158/83, respiratory rate of 18 and heart rate of 74 with oxygenation at 90%. HEENT: Unremarkable. NECK: Supple. LUNGS: Decreased breath sounds. HEART: Normal S1, S2. ABDOMEN: Soft, nontender. No organomegaly. No rebound. No guarding. No masses. LABORATORY EXAMINATION: Reveals a white count of 4,100, hemoglobin of 11, platelets of 217,000 and BUN of 21, creatinine of 1.1. Alkaline phosphatase is 157. Microbiology reveals a bone culture from yesterday is growing gram-negative rods and organisms seen on Gram stain, has a light growth of gram-negative rods. Review of the microbiology from previous admissions revealed the patient in 03/2017 had Staph aureus and also had Raoultella ornithinolytica, which was pansensitive. ASSESSMENT AND PLAN: This is a 72-year-old male with hypertension, diabetes, dyslipidemia, psoriasis, now postprocedure day #1 who is status post first partial ray amputation, whose procedure 1 was checked on the overall culture identification in a gram negative carri. Apparently, the patient is on ceftriaxone, and we will change that to meropenem, pending identification and sensitivity of the organism. We will make in the pathology report, we will make further recommendations, pending margins of the pathology, duration of the antibiotics and route of the antibiotics. Jesús Hu MD
[2017-03-30] MEDS: Meropenem 1g/NS 100mL IVPB 1 GM/100 ML PIGGYBACK IVPB SCH ×3 (05:29→21:21)
[2017-03-30 05:57] LABS: BASO # 0.02 K/mm3 (0.0-2.0); BASO % 0.2 % (0.0-3.0); EOS # 0.3 (0.0-0.7); EOS % 2.7 % (1.5-5.0); GRAN # 8.59 (1.4-6.5); GRAN % 69.8 % (50.0-68.0); HEMOGLOBIN 11.9 gm/dL (14.0-18.0); LYMPH # 2.5 (1.2-3.4); LYMPH % 20.1 % (22.0-35.0); MEAN CELL VOLUME 89.8 fL (80.0-105.0); MEAN CORPUSCULAR HEMOGLOBIN 29.7 pg (25.0-35.0); MEAN CORPUSCULAR HGB CONC 33.1 g/dl (31.0-37.0); MEAN PLATELET VOLUME 8.7 fl (7.0-11.0); MONO # 0.9 (0.1-0.6); MONO % 7.2 % (1.0-6.0); PLATELET COUNT 263 10^3/uL (120.0-450.0); RBC 4.01 10^6/uL (3.5-6.1); RED CELL DISTRIBUTION WIDTH 13.7 % (11.5-14.5); WHITE BLOOD COUNT 12.3 10^3/ul (4.5-11.0)
[2017-03-30 07:39] LABS: ALB/GLOB RATIO 0.7 (1.1-1.8); ALBUMIN 2.8 g/dL (3.0-4.8); ALT/SGPT 14 U/L (7-56); AST/SGOT 19 U/L (15-59); BLOOD UREA NITROGEN 19 mg/dL (7-21); CALCIUM 8.6 mg/dL (8.4-10.5); GFR AFRICAN-AMERICAN > 60; GFR NON-AFRICAN AMERICAN > 60
[2017-03-30] MEDS: Insulin Lispro (HUMAlog) HIGH Coverage SC SCH ×3 (08:28→16:56)
[2017-03-30] MEDS: Insulin Lispro 1 UNITS/0.01 ML SC SCH ×3 (08:28→16:58)
[2017-03-30] MEDS: Pantoprazole 40 mg EC Tab PO SCH (08:28)
--- NOTE | 2017-03-30 09:04 | CP.PCM.PN ---
Subjective - Date & Time of Evaluation Date of Evaluation: 03/30/17 Time of Evaluation: 07:00 - Subjective Subjective: Internal Medicine Progress Note for Dr. Greene Patient seen and examined at bedside. Today is hospital day 3 and POD #2 for Right foot 1st toe amputation. Patient resting comfortably in bed, denies any acute complaint. Some tenderness to palpation at posterior/inferior portion of heel, but only minimal tenderness to palpation at and around amputation site ( through bandaging). Foot remains bandaged and wrapped. No active bleeding through bandaging. Denies chest pain, shortness of breath, nausea/emesis, fever /chills, focal weakness, focal paresthesias, or diarrhea/constipation. Objective - Vital Signs/Intake and Output Vital Signs (last 24 hours): Temp Pulse Resp BP Pulse Ox 98.6 F 80 20 182/71 H 96 03/30/17 08:02 03/30/17 08:02 03/30/17 08:02 03/30/17 08:02 03/30/17 08:02 Intake and Output: 03/30/17 03/30/17 06:59 18:59 Intake Total 1240 Output Total 200 55 Balance 1040 -55 - Medications Medications: Current Medications Acetaminophen (Tylenol 325mg Tab) 650 mg PO Q4H PRN PRN Reason: Pain, Mild (1-3) Last Admin: 03/29/17 15:08 Dose: 650 mg Atorvastatin Calcium (Lipitor) 10 mg PO DIN GERRY Last Admin: 03/29/17 16:56 Dose: 10 mg Heparin Sodium (Porcine) (Heparin) 5,000 units SC Q8 GERRY PRN Reason: Protocol Meropenem 1g/NS 100mL IVPB (Meropenem 1g/Ns 100ml Ivpb) 1 gm in 100 mls @ 100 mls/hr IVPB Q8 GERRY PRN Reason: Protocol Stop: 04/06/17 22:01 Last Admin: 03/30/17 05:29 Dose: 100 mls/hr Insulin Human Lispro (Humalog High) 0 units SC ACHS G[facility]Y PRN Reason: Protocol Last Admin: 03/30/17 08:28 Dose: 2 units Insulin Human Lispro (Humalog) 2 units SC ACBL [facility] Last Admin: 03/30/17 08:28 Dose: 2 units Insulin Human Lispro (Humalog) 2 units SC ACD [facility] Last Admin: 03/29/17 16:57 Dose: 2 units Losartan Potassium (Cozaar) 25 mg PO DAILY [facility] Last Admin: 03/29/17 10:52 Dose: 25 mg Non-Formulary Medication (Victoza) 1.8 units SUBCUT DAILY [facility] Last Admin: 03/29/17 10:52 Dose: Not Given Ondansetron HCl (Zofran Inj) 4 mg IVP Q4H PRN PRN Reason: Nausea/Vomiting Oxycodone/Acetaminophen (Percocet 5/325 Mg Tab) 1 tab PO Q4H PRN PRN Reason: Pain, moderate (4-7) Stop: 03/31/17 18:54 Pantoprazole Sodium (Protonix Ec Tab) 40 mg PO ACB [facility] Last Admin: 03/30/17 08:28 Dose: 40 mg - Labs Labs: 03/30/17 05:30 03/30/17 07:00 PT 11.4 Seconds (9.9-11.8) 03/28/17 13:43 INR 1.06 (0.93-1.08) 03/28/17 13:43 APTT 26.6 Seconds (23.7-30.8) 03/28/17 13:43 - Constitutional Appears: Well, Non-toxic, No Acute Distress - Head Exam Head Exam: ATRAUMATIC, NORMAL INSPECTION, NORMOCEPHALIC - Eye Exam Eye Exam: EOMI, Normal appearance. absent: Conjunctival injection, Scleral icterus Pupil Exam: absent: Irregular, Unequal - ENT Exam ENT Exam: Mucous Membranes Moist - Neck Exam Neck Exam: Full ROM, Normal Inspection - Respiratory Exam Respiratory Exam: Clear to Ausculation Bilateral, NORMAL BREATHING PATTERN. absent: Accessory Muscle Use, Chest Wall Tenderness, Decreased Breath Sounds, Rales, Wheezes - Cardiovascular Exam Cardiovascular Exam: REGULAR RHYTHM, RRR, +S1, +S2. absent: Bradycardia, Tachycardia, Irregular Rhythm, JVD, +S4 - GI/Abdominal Exam GI & Abdominal Exam: Soft, Normal Bowel Sounds. absent: Distended, Firm, Rigid , Tenderness, Diminished Bowel Sounds, Hyperactive Bowel Sounds, Hypoactive Bowel Sounds - Extremities Exam Additional comments: Upper extremities: normal coloration, normal warmth on palpation, motor and sensation grossly intact, +2 radial pulses bilaterally Left lower extremity: normal warmth on palpation, motor and sensation grossly intact, +1 dorsalis pedis pulse, no calf tenderness Right lower extremity: bandaged and wrapped, 1st toe amputated, no tenderness or gross erythema visible on toes 2-4 extending from bandaging, no tenderness to palpation at or around amputation site through bandaging, mild tenderness to palpation at inferior/posterior portion of heel, no calf tenderness - Neurological Exam Neurological Exam: Alert, Awake, Oriented x3 - Psychiatric Exam Psychiatric exam: Normal Affect, Normal Mood - Skin Skin Exam: Dry, Intact, Normal Color, Warm Additional comments: except as described in Extremities section Assessment and Plan - Assessment and Plan (Free Text) Assessment: This is a 72 yo M with PMH of DM II, HTN, and HLD who presented for right foot first toe amputation due to non-healing ulcer not improved with IV abx and prior debridements by Podiatry. He is POD #2 for amputation. Plan: 1) Right Hallux Amputation -POD #2, drain remains in place, ~5-10cc serosanguinous drainage at time of exam -Podiatry (Dr. Baron) following, appreciate all recs; weight-bearing as tolerated with fore-foot relief shoe, pending wound culture results and pathology -PT consulted for possible rehab, recs d/c to home -Bone path notable for light growth of gram negative rods, ID aware, patient now on Merrem and Ancef held, pending speciation/sensitivities -Wound culture negative x48 hours 2) Cellulitis -was d/c'ed on Cefazolin 2 gm IVPB q 8H during last visit, [place] [facility] now switched to Merrem 1g q8 as per ID -ID (Dr. Hu) following, appreciate all recs -CRP elevated, ESR remains elevated but improved over last check (was 63, 45 today) -Leukocytosis persists, 12.3 today (was 12.1), may be 2/2 recent amputation -Patient was previously approved for home infusions of Ancef, will follow up with Case Management to have patient approved for Merrem instead after discharge given change in regimen while inpatient 3) DM II -Continue with Lispro 2 units SC, Victoza 1.8 units SC 4) HTN -Continue with Losartan 25 mg qD 5) HLD -Continue with Lipitor 10 mg PO DIN Dispo: Med/Surg, pending pathology/wound culture results, on IV abx, pending possible placement for IV abx vs home with Merrem infusions FEN: Heart-healthy consistent carb Access: Peripheral IV, PICC line Consults: Podiatry, ID Ppx: Heparin SC for DVT, Protonix for GI Patient reviewed and discussed with attending, Dr. Greene.
[2017-03-30] MEDS: LIRAGLUTIDE SUBCUT SCH (09:32)
--- NOTE | 2017-03-30 12:17 | CP.PCM.PN ---
Subjective - Date & Time of Evaluation Date of Evaluation: 03/30/17 Time of Evaluation: 11:00 - Subjective Subjective: 72 yo diabetic male patient POD #2 amputation of right hallux seen at beside this AM with Dr. Chowdhury present. Pt seen resting comfortably in bedside chair at time of visit with legs elevated. Dressing to right foot appears c/d/i with NOEMI drain. Pt reports absence of pain or discomfort to the foot at this time. Denies f/n/v/c/sob/cp. Says physical therapy went well and says that he was able to walk with the surgical shoe without a problem. Denies any other problems today. Objective - Vital Signs/Intake and Output Vital Signs (last 24 hours): Temp Pulse Resp BP Pulse Ox 98.6 F 80 20 152/71 H 96 03/30/17 08:02 03/30/17 08:02 03/30/17 08:02 03/30/17 09:34 03/30/17 08:02 Intake and Output: 03/30/17 03/30/17 06:59 18:59 Intake Total 1240 Output Total 200 55 Balance 1040 -55 - Medications Medications: Current Medications Acetaminophen (Tylenol 325mg Tab) 650 mg PO Q4H PRN PRN Reason: Pain, Mild (1-3) Last Admin: 03/29/17 15:08 Dose: 650 mg Atorvastatin Calcium (Lipitor) 10 mg PO DIN GERRY Last Admin: 03/29/17 16:56 Dose: 10 mg Heparin Sodium (Porcine) (Heparin) 5,000 units SC Q8 G[facility]Y PRN Reason: Protocol Last Admin: 03/30/17 09:32 Dose: 5,000 units Meropenem 1g/NS 100mL IVPB (Meropenem 1g/Ns 100ml Ivpb) 1 gm in 100 mls @ 100 mls/hr IVPB Q8 G[facility]Y PRN Reason: Protocol Stop: 04/06/17 22:01 Last Admin: 03/30/17 05:29 Dose: 100 mls/hr Insulin Human Lispro (Humalog High) 0 units SC ACHS G[facility]Y PRN Reason: Protocol Last Admin: 03/30/17 11:53 Dose: 4 units Insulin Human Lispro (Humalog) 2 units SC ACBL [facility] Last Admin: 03/30/17 11:54 Dose: 2 units Insulin Human Lispro (Humalog) 2 units SC ACD [facility] Last Admin: 03/29/17 16:57 Dose: 2 units Losartan Potassium (Cozaar) 25 mg PO DAILY [facility] Last Admin: 03/30/17 09:34 Dose: 25 mg Non-Formulary Medication (Victoza) 1.8 units SUBCUT DAILY [facility] Last Admin: 03/30/17 09:32 Dose: Not Given Ondansetron HCl (Zofran Inj) 4 mg IVP Q4H PRN PRN Reason: Nausea/Vomiting Oxycodone/Acetaminophen (Percocet 5/325 Mg Tab) 1 tab PO Q4H PRN PRN Reason: Pain, moderate (4-7) Stop: 03/31/17 18:54 Pantoprazole Sodium (Protonix Ec Tab) 40 mg PO ACB [facility] Last Admin: 03/30/17 08:28 Dose: 40 mg - Labs Labs: 03/30/17 05:30 03/30/17 07:00 PT 11.4 Seconds (9.9-11.8) 03/28/17 13:43 INR 1.06 (0.93-1.08) 03/28/17 13:43 APTT 26.6 Seconds (23.7-30.8) 03/28/17 13:43 - Constitutional Appears: Well, Non-toxic, No Acute Distress - Extremities Exam Additional comments: Right foot focused: VASC- DP/PT pulses non-palpable, skin temp runs warm to cool, cap refill < 4 sec to all digits and to surgical site, slight edema noted DERM- surgical incision site appears c/d/i, no dehisence, sutures well-coapted, slight sero-sanguinous drainage noted to bandage, no active bleeding noted, no erythema, no signs infection, 50 cc of sero-sanguinous drainage noted to NOEMI drain NEURO- pedal sensation is grossly diminished ORTHO- s/p amputation of right hallux, no pain to incision site - Neurological Exam Neurological Exam: Alert, Awake, Oriented x3 - Psychiatric Exam Psychiatric exam: Normal Affect, Normal Mood Assessment and Plan - Assessment and Plan (Free Text) Assessment: 72 yo diabetic male pt, 2 days s/p right foot hallux amputation. Plan: Pt S&E at bedside with attending Dr. Chowdhury present Chart, plans and vitals reviewed: afebrile, WBC 12.3 (up from 11 yesterday- normal for post-op) Heparin restarted today, ancef is discontinued Foot redressed with adaptic, DSD, kerlix and light MELRENE compression, NOEMI drain to remain in place for now Keep dressing c/d/i tomorrow and over weekend Pt may WBAT with forefoot relief shoe to right foot Physical therapy: recommending D/C home (not a candidate for skilled PT serviced ) Discussed with daughter over the phone, per social work pt is denied to TCU, [facility] is inquiring about other rehab facilities. Advised daugther to call social services manager to discuss options Surg. pathology and wound cx's pending (will follow up as outpatient) Stable per podiatry will follow
--- NOTE | 2017-03-30 14:11 | PN ---
DATE: 03/30/2017 LOCATION: The patient was seen in room 576, bed 2. SUBJECTIVE: The patient is seen sitting up in the bed. Patient does not offer any specific complaints. Overnight nurses' notes were reviewed. PHYSICAL EXAMINATION: VITAL SIGNS: T-max is 98.6. Pulse is 80 to 81. Blood pressure is 132/70, 135/69, and 182/71. Respiration 18 to 20. O2 saturation 96% to 95%. HEAD: Normocephalic, atraumatic. HEENT: Shows pinkish conjunctivae, anicteric sclerae. No oropharyngeal lesion. NECK: No neck rigidity. CHEST: Kyphosis. LUNGS: Show no rales, crackles, or wheezing. CARDIOVASCULAR: S1 and S2. Regular rhythm. ABDOMEN: Soft, positive bowel sounds. Protuberant. GENITALIA: Male. RECTAL: Deferred. EXTREMITIES: Positive right foot dressing with a NOEMI drain. No pitting edema noted. MUSCULOSKELETAL: Shows a body mass index of 35. DIAGNOSTIC DATA: WBC is 12.3, hemoglobin and hematocrit 11.9 and 36, platelets 263. Granulocytes, 70%. Sodium 138, potassium 4.3, chloride 100, CO2 31, anion gap 11, BUN 19, creatinine 1.0, GFR greater than 60, glucose 134, calcium is 8.6, phosphorous 3.0, magnesium 2.0; magnesium was 1.5 yesterday, alkaline phosphatase 139, C-reactive protein greater than 15. Wound cultures from the right toe amputation, gram-negative rods. Margins may not be clean; I hope they are clean. He may get stuck with 4-6 weeks, right foot. IMPRESSION AND PLAN: 1. Right foot big toe diabetic foot ulceration, gangrene, and possible question of osteomyelitis with gram-negative carri, diabetic right foot great toe ulceration gangrene and possible gram negative carri, osteomyelitis. 2. Hypertension. 3. He meets SIRS criteria. 4. *------* 4. Normocytic anemia. 5. Insulin requiring uncontrolled diabetes mellitus with hyperglycemia. 6. Elevated erythrocyte sedimentation rate of 63 and 45 with elevated C-reactive protein. 7. Patient is seen by social security benefits interviewer and physical therapy. Patient denied by PCU secondary to insurance issues. CURRENT MEDICATION: Cozaar 25 mg daily, heparin 5000 subcu q. 8, Humalog 2 units with breakfast, lunch, and dinner, Humalog high dose sliding scale coverage, Lipitor 10 mg daily, meropenem 1 g IV q. 8, Percocet 5/325 one tab q. 4 p.r.n., Protonix 40 mg daily, Tylenol 650 q. 4 p.r.n., Victoza 1.8 units subcu daily, Zofran 4 mg IV q. 4 p.r.n. At present, patient is to be continued on above therapeutic intervention. Patient's discharge disposition is dependent upon the patient's acceptance to either subacute rehab as recommended by the social security benefits interviewer versus home IV antibiotic, which has been explained to the patient. Amrit Greene MD
--- NOTE | 2017-03-30 15:46 | CP.PCM.PN ---
Subjective - Date & Time of Evaluation Date of Evaluation: 03/30/17 Time of Evaluation: 11:05 - Subjective Subjective: Comfortable in bed, not in distress, afebrile, less pain in the right foot. Objective - Vital Signs/Intake and Output Vital Signs (last 24 hours): Temp Pulse Resp BP Pulse Ox 98.6 F 80 20 152/71 H 96 03/30/17 08:02 03/30/17 08:02 03/30/17 08:02 03/30/17 09:34 03/30/17 08:02 Intake and Output: 03/30/17 03/30/17 06:59 18:59 Intake Total 1240 Output Total 200 55 Balance 1040 -55 - Medications Medications: Current Medications Acetaminophen (Tylenol 325mg Tab) 650 mg PO Q4H PRN PRN Reason: Pain, Mild (1-3) Last Admin: 03/29/17 15:08 Dose: 650 mg Atorvastatin Calcium (Lipitor) 10 mg PO DIN [facility] Last Admin: 03/29/17 16:56 Dose: 10 mg Heparin Sodium (Porcine) (Heparin) 5,000 units SC Q8 [facility] PRN Reason: Protocol Last Admin: 03/30/17 09:32 Dose: 5,000 units Meropenem 1g/NS 100mL IVPB (Meropenem 1g/Ns 100ml Ivpb) 1 gm in 100 mls @ 100 mls/hr IVPB Q8 [facility] PRN Reason: Protocol Stop: 04/06/17 22:01 Last Admin: 03/30/17 05:29 Dose: 100 mls/hr Insulin Human Lispro (Humalog High) 0 units SC ACHS [facility] PRN Reason: Protocol Last Admin: 03/30/17 08:28 Dose: 2 units Insulin Human Lispro (Humalog) 2 units SC ACBL [facility] Last Admin: 03/30/17 08:28 Dose: 2 units Insulin Human Lispro (Humalog) 2 units SC ACD [facility] Last Admin: 03/29/17 16:57 Dose: 2 units Losartan Potassium (Cozaar) 25 mg PO DAILY [facility] Last Admin: 03/30/17 09:34 Dose: 25 mg Non-Formulary Medication (Victoza) 1.8 units SUBCUT DAILY [facility] Last Admin: 03/30/17 09:32 Dose: Not Given Ondansetron HCl (Zofran Inj) 4 mg IVP Q4H PRN PRN Reason: Nausea/Vomiting Oxycodone/Acetaminophen (Percocet 5/325 Mg Tab) 1 tab PO Q4H PRN PRN Reason: Pain, moderate (4-7) Stop: 03/31/17 18:54 Pantoprazole Sodium (Protonix Ec Tab) 40 mg PO ACB [facility] Last Admin: 03/30/17 08:28 Dose: 40 mg - Labs Labs: 03/30/17 05:30 03/30/17 07:00 PT 11.4 Seconds (9.9-11.8) 03/28/17 13:43 INR 1.06 (0.93-1.08) 03/28/17 13:43 APTT 26.6 Seconds (23.7-30.8) 03/28/17 13:43 - Constitutional Appears: No Acute Distress - Head Exam Head Exam: NORMAL INSPECTION - Neck Exam Neck Exam: absent: Meningismus - Respiratory Exam Respiratory Exam: Decreased Breath Sounds - Cardiovascular Exam Cardiovascular Exam: +S1, +S2 - GI/Abdominal Exam GI & Abdominal Exam: Soft. absent: Tenderness - Extremities Exam Additional comments: right foot with dressings in place Assessment and Plan - Assessment and Plan (Free Text) Plan: Assessment Right hallux infected ulcer (with gangrene) ,growing gram negative bacilli S/P 1st ray amputation DM HTN dyslipidemia psoriasis history of wounds in the foot history of rib fractures due to trauma Plan continue Merrem - follow up identification and sensitivities of the gram negative bacilli in the bone; follow up OR pathology as well will follow clinically
[2017-03-31] MEDS: Meropenem 1g/NS 100mL IVPB 1 GM/100 ML PIGGYBACK IVPB SCH ×3 (05:22→21:34)
[2017-03-31 06:45] LABS: ALB/GLOB RATIO 0.7 (1.1-1.8); ALBUMIN 3.2 g/dL (3.0-4.8); ALT/SGPT 23 U/L (7-56); AST/SGOT 29 U/L (15-59); BLOOD UREA NITROGEN 25 mg/dL (7-21); GFR AFRICAN-AMERICAN > 60; GFR NON-AFRICAN AMERICAN > 60; MAGNESIUM 1.9 mg/dL (1.7-2.2)
[2017-03-31 07:25] LABS: BASO # 0.01 K/mm3 (0.0-2.0); BASO % 0.1 % (0.0-3.0); EOS # 0.6 (0.0-0.7); EOS % 5.4 % (1.5-5.0); GRAN # 6.97 (1.4-6.5); GRAN % 68.9 % (50.0-68.0); HEMOGLOBIN 11.9 gm/dL (14.0-18.0); LYMPH # 1.6 (1.2-3.4); LYMPH % 16.2 % (22.0-35.0); MEAN CELL VOLUME 89.7 fL (80.0-105.0); MEAN CORPUSCULAR HEMOGLOBIN 29.1 pg (25.0-35.0); MEAN CORPUSCULAR HGB CONC 32.4 g/dl (31.0-37.0); MEAN PLATELET VOLUME 9.4 fl (7.0-11.0); MONO % 9.4 % (1.0-6.0); PLATELET COUNT 265 10^3/uL (120.0-450.0); RBC 4.09 10^6/uL (3.5-6.1); RED CELL DISTRIBUTION WIDTH 13.6 % (11.5-14.5); WHITE BLOOD COUNT 10.1 10^3/ul (4.5-11.0)
[2017-03-31] MEDS: Insulin Lispro 1 UNITS/0.01 ML SC SCH ×3 (07:30→17:02)
[2017-03-31] MEDS: Pantoprazole 40 mg EC Tab PO SCH (08:55)
[2017-03-31] MEDS: Insulin Lispro (HUMAlog) HIGH Coverage SC SCH ×4 (09:56→23:07)
--- NOTE | 2017-03-31 10:28 | PN ---
DATE: 03/31/2017 SUBJECTIVE: The patient is in bed, in no acute distress, nontoxic. No fevers and no chills. The patient is seen earlier. PHYSICAL EXAMINATION: VITAL SIGNS: Temperature 98, heart rate 78, blood pressure 130/60, and respiratory rate 18. HEENT: Unremarkable. NECK: Supple. CARDIOPULMONARY: Normal S1 and S2. LUNGS: Decreased breath sounds. ABDOMEN: Soft and nontender. LABORATORY DATA: Reveals the patient has a white count of 10,000, hemoglobin 11, and platelets 265. BUN of 25, creatinine of 1.1. Microbiology reveals the bone culture is gram-negative carri. Right foot culture is gram-negative carri. The pathology is still pending. ASSESSMENT AND PLAN: This is a 72-year-old male with right hallux infected ulcer with gangrene with a gram-negative carri, status post first ray amputation in a diabetic, hypertension, dyslipidemia, psoriasis, currently on Merrem, awaiting for the pathology report and awaiting for the gram-negative carri identification and sensitivity, reviewed of the orders reveals the patient to get meropenem and pathology is pending. Jesús Hu MD
[2017-03-31] MEDS ORDERED: Magnesium Hydroxide Susp 30 ml UD PO STA (12:26)
--- NOTE | 2017-03-31 12:38 | PN ---
SUBJECTIVE: A 72-year-old male seen at bedside, status post day 3 right hallux amputation. The patient is resting comfortably and has no complaints. However, he is quite concerned about being discharged home as he is unable to care for himself given his recent surgery. The patient has been denied admission to TCU and case management is currently working on transferring him to [facility] in [place], however, that has not been confirmed as of today. He prefers to be transferred to the [facility] because his is already at that facility recuperating from a health issue. PHYSICAL EXAMINATION: VITAL SIGNS: Reveals temperature of 98.2, pulse rate of 78, blood pressure of 130/68, and respiratory rate of 18. EXTREMITIES: Nonpalpable pedal pulses noted bilaterally. Incision site on the right foot presents with all sutures intact and well-coapted. There is noted to be minimal drainage emanating from where the NOEMI drain was pulled yesterday. The area remains slightly edematous and erythematous, but has decreased since yesterday. There are no signs of ascending cellulitis. LABORATORY DATA: Reveal white count of 10.1, down from 12.3 yesterday, hemoglobin of 11.9, hematocrit of 36.7, and platelet count of 265. His ESR is pending, but yesterday's level was 45. Histology report from the operating room is still pending and is needed to confirm, is still pending, and awaiting results. ASSESSMENT: Status post right foot hallux amputation. PLAN: The patient's wound was cleansed with normal sterile saline, a small amount of Betadine solution was applied to incision site, Adaptic, Maxorb, and a dry sterile dressing with White Ken compression was applied. The patient has a forefoot offloading shoe, which he can ambulate in, however, I highly recommend that he would be transferred to a subacute facility in an effort to prevent wound and effort to prevent dehiscence of his surgical site, and further limb loss. Once again the patient's case coordinator is looking into the possibility of being transferred to the [facility] in [place], [place] as his is currently residing there for her medical issue and it would be an ideal situation for his family to care for them there. The patient will be seen in follow daily. We are awaiting surgical pathology report to dictate antibiotic coverage going forward. The patient will be seen . Walker Chowdhury DPM
[2017-03-31] MEDS: LIRAGLUTIDE SUBCUT SCH (14:39)
[2017-03-31] MEDS: POLYETHYLENE GLYCOL 3350 17 GM/Dose PACKET PO SCH (17:04)
--- NOTE | 2017-03-31 17:43 | PN ---
DATE: 03/31/2017 SUBJECTIVE: The patient is seen lying in out of bed to recliner in room 576, bed 2. The patient is alert, awake, responsive, complains of constipation. Overnight nurse's notes were reviewed. No has been documented. PHYSICAL EXAMINATION VITAL SIGNS: T-max 98.2; pulse 78; blood pressure 152/71, 130/68, 152/80; respirations 18; O2 saturations 97%. HEAD: Normocephalic and atraumatic. ENT: Kiel conjunctiva. Anicteric sclera. No oropharyngeal lesion. NECK: No neck rigidity. CHEST: Kyphosis. LUNGS: No rales, crackles or wheezing. CARDIOVASCULAR: S1 and S2 regular rhythm. ABDOMEN: Protuberant. Positive bowel sounds. GENITALIA: Male. RECTAL: Deferred. EXTREMITIES: Positive right foot dressing. No pitting edema noted. VASCULAR: Palpable pulses. MUSCULOSKELETAL: Shows a body mass index of 35.3. NEUROLOGIC: Cranial nerve II through XII limited. Gait examination not tested. LABORATORY DATA: On 03/31/2017; WBC 10.1, hemoglobin and hematocrit 11.9 and 36.7, platelets 265, granulocytes 69%. ESR is 49. Sodium 137, potassium 4.3, chloride 101, CO2 is 31, anion gap 9, BUN 25, creatinine 1.1, GFR greater than 60, glucose 206 and 177. LFTs are normal, alkaline phosphatase 150. C-reactive protein greater than 15. Wound cultures from the right foot is Serratia marcescens which is resistant only to Ancef, sensitive to others. Bone cultures also growing Serratia marcescens which is resistant to Ancef, sensitive to all other antibiotics. IMPRESSION: 1. Constipation. 2. Status post right foot big toe hallux amputation. 3. Hypertension. 4. Leukocytosis with granulocytosis. 5. Elevated erythrocytes sedimentation rate of 40s and 60s. 6. Insulin-requiring diabetes mellitus with hyperglycemia. 7. Elevated C-reactive protein of greater than 15. 8. Serratia marcescens right foot big toe diabetic foot ulceration, gangrene and possible osteomyelitis. 9. Gait dysfunction. 10. Status post right foot first ray amputation. 11. Right foot big toe right hallux infected diabetic ulceration with gangrene and possible osteomyelitis with Serratia marcescens. PLAN: The patient has been ordered serial labs. The patient is currently waiting for discharge to subacute rehab office choice. CURRENT MEDICATIONS: 1. Cozaar 25 mg daily. 2. Humalog 2 units with breakfast, lunch and dinner. 3. Humalog high dose sliding scale coverage a.c. and at bedtime. 4. Lipitor 10 mg daily. 5. Meropenem 1 g IV q. 8 hours. 6. The patient has ordered a stat dose of milk of magnesia and Miralax 17 g twice a day. 7. Protonix 40 mg one tab q. 4 hours p.r.n. 8. Miralax 17 g twice a day. 9. Percocet 5/325 mg 1 tablet q.4 p.r.n. 10. Protonix 40 mg daily. 11. Tylenol 650 mg q. 4 hours p.r.n. 12. Victoza 1.8 unit subcutaneously daily. 13. Zofran 4 mg IV q.4 p.r.n. 14. Consistent carbohydrate diet. 15. Out of bed to chair. Plan at this time, the patient is to be continued on above therapeutic intervention with discharge disposition to be determined by the patient's choice of subacute rehab and discharge. Amrit Greene MD
[2017-04-01] MEDS: Meropenem 1g/NS 100mL IVPB 1 GM/100 ML PIGGYBACK IVPB SCH ×3 (05:36→21:36)
[2017-04-01 08:03] LABS: BASO # 0.02 K/mm3 (0.0-2.0); BASO % 0.2 % (0.0-3.0); EOS # 0.9 (0.0-0.7); EOS % 8.5 % (1.5-5.0); GRAN % 61.1 % (50.0-68.0); HEMOGLOBIN 11.9 gm/dL (14.0-18.0); LYMPH % 20.1 % (22.0-35.0); MEAN CELL VOLUME 89.1 fL (80.0-105.0); MEAN CORPUSCULAR HEMOGLOBIN 28.8 pg (25.0-35.0); MEAN CORPUSCULAR HGB CONC 32.3 g/dl (31.0-37.0); MEAN PLATELET VOLUME 9.1 fl (7.0-11.0); MONO % 10.1 % (1.0-6.0); PLATELET COUNT 248 10^3/uL (120.0-450.0); RBC 4.13 10^6/uL (3.5-6.1); RED CELL DISTRIBUTION WIDTH 13.7 % (11.5-14.5); WHITE BLOOD COUNT 10.1 10^3/ul (4.5-11.0)
[2017-04-01 08:19] LABS: ALB/GLOB RATIO 0.7 (1.1-1.8); ALBUMIN 3.2 g/dL (3.0-4.8); ALT/SGPT 18 U/L (7-56); AST/SGOT 37 U/L (15-59); BILIRUBIN,DIRECT 0.3 mg/dL (0.0-0.4); BLOOD UREA NITROGEN 20 mg/dL (7-21); CALCIUM 9.3 mg/dL (8.4-10.5); GFR AFRICAN-AMERICAN > 60; GFR NON-AFRICAN AMERICAN > 60; MAGNESIUM 1.7 mg/dL (1.7-2.2)
[2017-04-01] MEDS: Pantoprazole 40 mg EC Tab PO SCH (08:26)
[2017-04-01] MEDS: Insulin Lispro 1 UNITS/0.01 ML SC SCH ×2 (08:27→11:54)
[2017-04-01] MEDS: Insulin Lispro (HUMAlog) HIGH Coverage SC SCH ×2 (08:28→11:53)
[2017-04-01] MEDS: POLYETHYLENE GLYCOL 3350 17 GM/Dose PACKET PO SCH ×2 (10:09→17:54)
[2017-04-01] MEDS: LIRAGLUTIDE SUBCUT SCH (10:13)
--- NOTE | 2017-04-01 10:54 | PN ---
DATE: 04/01/2017 SUBJECTIVE: The patient is in bed in no acute distress, nontoxic. PHYSICAL EXAMINATION: VITAL SIGNS: Temperature is 98, blood pressure is 130/70, respiratory rate of 18. HEENT: Unremarkable. NECK: Supple. LUNGS: Decreased breath sounds. HEART: Normal S1 and S2. ABDOMEN: Soft and nontender. LABORATORY DATA: Reveals a white count is 10,000, hemoglobin of 11, platelets of 249. Chemistries are noted with a BUN of 20, creatinine of 1.1 and microbiology reveals the bone culture to have Serratia marcescens which is sensitive to Cipro and the right foot culture also has Serratia marcescens which is also sensitive to Cipro. The pathology report is pending. ASSESSMENT AND PLAN: He is a 72-year-old male with *------* gangrene and Serratia marcescens infection and status post first ray amputation in a patient who is diabetic, hypertensive, dyslipidemia, psoriasis, currently on meropenem maybe able to switch to p.o. Cipro if the pathology report shows that the margins of the bone are clear of osteomyelitis and a complete a short course of antibiotic. If margins are positive for osteomyelitis we will need intravenous antibiotics. We will follow with you. Jesús Hu MD
--- NOTE | 2017-04-01 11:23 | CP.PCM.PN ---
<Jose C Rodgers - Last Filed: 04/01/17 11:18> Subjective - Date & Time of Evaluation Date of Evaluation: 04/01/17 Time of Evaluation: 11:18 - Subjective Subjective: 72 year old male seen resting comfortably in chair POD #4 of right hallux amputation. Dressing is c/d/i with no strikethrough noted. Patient stated that he feels good today because he was able to shave and clean himself today. He also states that he and his has decided to go to rehab at [facility]. He reports no pain. Denies n/v/sob/cp/chills or f. He denies any acute events overnight. No other pedal complaint at this time. Objective - Vital Signs/Intake and Output Vital Signs (last 24 hours): Temp Pulse Resp BP Pulse Ox 98.1 F 73 20 134/74 95 04/01/17 08:08 04/01/17 10:09 04/01/17 08:08 04/01/17 10:09 04/01/17 08:08 Intake and Output: 04/01/17 04/01/17 06:59 18:59 Intake Total 1300 Balance 1300 - Medications Medications: Current Medications Acetaminophen (Tylenol 325mg Tab) 650 mg PO Q4H PRN PRN Reason: Pain, Mild (1-3) Last Admin: 03/30/17 19:51 Dose: 650 mg Atorvastatin Calcium (Lipitor) 10 mg PO DIN [facility] Last Admin: 03/31/17 17:03 Dose: 10 mg Meropenem 1g/NS 100mL IVPB (Meropenem 1g/Ns 100ml Ivpb) 1 gm in 100 mls @ 100 mls/hr IVPB Q8 [facility] PRN Reason: Protocol Stop: 04/06/17 22:01 Last Admin: 04/01/17 05:36 Dose: 100 mls/hr Insulin Human Lispro (Humalog High) 0 units SC ACHS [facility] PRN Reason: Protocol Last Admin: 04/01/17 08:28 Dose: Not Given Insulin Human Lispro (Humalog) 2 units SC ACBL [facility] Last Admin: 04/01/17 08:27 Dose: 2 units Insulin Human Lispro (Humalog) 2 units SC ACD [facility] Last Admin: 03/31/17 17:02 Dose: 2 units Losartan Potassium (Cozaar) 25 mg PO DAILY [facility] Last Admin: 04/01/17 10:09 Dose: 25 mg Non-Formulary Medication (Victoza) 1.8 units SUBCUT DAILY [facility] Last Admin: 04/01/17 10:13 Dose: Not Given Ondansetron HCl (Zofran Inj) 4 mg IVP Q4H PRN PRN Reason: Nausea/Vomiting Pantoprazole Sodium (Protonix Ec Tab) 40 mg PO ACB [facility] Last Admin: 04/01/17 08:26 Dose: 40 mg Polyethylene Glycol (Miralax) 17 gm PO BID [facility] Last Admin: 04/01/17 10:09 Dose: 17 gm - Labs Labs: 04/01/17 07:30 04/01/17 07:30 PT 11.4 Seconds (9.9-11.8) 03/28/17 13:43 INR 1.06 (0.93-1.08) 03/28/17 13:43 APTT 26.6 Seconds (23.7-30.8) 03/28/17 13:43 - Constitutional Appears: Well, Non-toxic, No Acute Distress - Extremities Exam Additional comments: Right lower extremity exam: VASC- DP/PT pulses non-palpable, temperature gradient is WNL, [employer]PER[employer] < 3 secs to all digital; [employer]PER[employer] <3 seconds at surgical incision, mild edema noted DERM- surgical incision is co-apted, no dehisence, sutures intact, slight sero- sanguinous drainage noted to bandage, no active bleeding noted, no erythema, no signs infection, periwound is slighty moist NEURO- pedal sensation is grossly diminished ORTHO- s/p amputation of right hallux, tenderness noted to the surgical incision site - Neurological Exam Neurological Exam: Alert, Awake, Oriented x3 - Psychiatric Exam Psychiatric exam: Normal Affect, Normal Mood Assessment and Plan - Assessment and Plan (Free Text) Assessment: 72 year old DM male 4 days s/p right foot hallux amputation. Plan: Patient seen and evaluated at bedside Discussed the plan in detail with Dr. Chowdhury Chart, plans and vitals reviewed: afebrile, WBC 10.1 Surgical site cleansed with betadine and adaptic, DSD, kerlix and light MERLENE compression applied Pt may WBAT in surgical shoe C/W IV antibiotic per ID; F/U ID recs following OR pathology results TCU and catalytic case operator currently working to D/C patient to [facility] per podiatry Will continue to follow patient while in house <Walker Chowdhury - Last Filed: 04/03/17 11:50> Objective - Vital Signs/Intake and Output Vital Signs (last 24 hours): Temp Pulse Resp BP Pulse Ox 98.2 F 76 20 124/72 92 L 04/02/17 16:15 04/02/17 16:15 04/02/17 16:15 04/02/17 16:15 04/02/17 16:15 - Labs Labs: 04/02/17 06:30 04/02/17 10:00 PT 11.4 Seconds (9.9-11.8) 03/28/17 13:43 INR 1.06 (0.93-1.08) 03/28/17 13:43 APTT 26.6 Seconds (23.7-30.8) 03/28/17 13:43 Attending/Attestation - Attestation I have personally seen and examined this patient.: Yes I have fully participated in the care of the patient.: Yes I have reviewed all pertinent clinical information, including history, physical exam and plan: Yes
[2017-04-02] MEDS: Insulin Lispro (HUMAlog) HIGH Coverage SC SCH ×3 (05:45→11:43)
[2017-04-02] MEDS: Meropenem 1g/NS 100mL IVPB 1 GM/100 ML PIGGYBACK IVPB SCH ×2 (06:50→14:54)
[2017-04-02 07:12] LABS: BASO # 0.03 K/mm3 (0.0-2.0); BASO % 0.3 % (0.0-3.0); EOS # 1.1 (0.0-0.7); EOS % 11.9 % (1.5-5.0); GRAN # 5.37 (1.4-6.5); GRAN % 56.8 % (50.0-68.0); HEMOGLOBIN 12.2 gm/dL (14.0-18.0); LYMPH % 20.8 % (22.0-35.0); MEAN CELL VOLUME 88.8 fL (80.0-105.0); MEAN CORPUSCULAR HGB CONC 32.7 g/dl (31.0-37.0); MEAN PLATELET VOLUME 8.9 fl (7.0-11.0); MONO % 10.2 % (1.0-6.0); PLATELET COUNT 232 10^3/uL (120.0-450.0); RED CELL DISTRIBUTION WIDTH 13.6 % (11.5-14.5); WHITE BLOOD COUNT 9.5 10^3/ul (4.5-11.0)
[2017-04-02 07:40] VITALS: RESP 20
[2017-04-02] MEDS: Insulin Lispro 1 UNITS/0.01 ML SC SCH ×2 (08:28→11:44)
[2017-04-02] MEDS: Pantoprazole 40 mg EC Tab PO SCH (08:31)
[2017-04-02] MEDS: POLYETHYLENE GLYCOL 3350 17 GM/Dose PACKET PO SCH ×2 (09:45→09:49)
[2017-04-02] MEDS: LIRAGLUTIDE SUBCUT SCH (09:46)
--- NOTE | 2017-04-02 10:01 | CP.PCM.PN ---
Subjective - Date & Time of Evaluation Date of Evaluation: 04/02/17 Time of Evaluation: 07:30 - Subjective Subjective: Internal Medicine Progress Note for Dr. Greene Patient seen and examined at bedside. Today is hospital day 6 and POD # 5 for right foot hallux amputation. Patient was seen today sleeping comfortably in bed. When awoken, patient denies any acute complaints. Patient states that his last bowel movement was yesterday. Patient states that he has no pain currently in the right foot. Foot is still wrapped and bandaged. He states that he tries to sit in the chair for 3-4 hours so that he sits up and ambulates. Bandage shows sero-sanguineous drainage. Denies shortness of breath, chest pain, n/v/d, fever/chills, focal weakness, focal paresthesias, constipation. Objective - Vital Signs/Intake and Output Vital Signs (last 24 hours): Temp Pulse Resp BP Pulse Ox 98.1 F 73 20 133/73 96 04/02/17 07:40 04/02/17 09:45 04/02/17 07:40 04/02/17 09:45 04/02/17 07:40 Intake and Output: 04/02/17 04/02/17 06:59 18:59 Intake Total 1100 Balance 1100 - Medications Medications: Current Medications Acetaminophen (Tylenol 325mg Tab) 650 mg PO Q4H PRN PRN Reason: Pain, Mild (1-3) Last Admin: 03/30/17 19:51 Dose: 650 mg Atorvastatin Calcium (Lipitor) 10 mg PO DIN [facility] Last Admin: 03/31/17 17:03 Dose: 10 mg Meropenem 1g/NS 100mL IVPB (Meropenem 1g/Ns 100ml Ivpb) 1 gm in 100 mls @ 100 mls/hr IVPB Q8 [facility] PRN Reason: Protocol Stop: 04/06/17 22:01 Last Admin: 04/02/17 06:50 Dose: 100 mls/hr Insulin Human Lispro (Humalog High) 0 units SC ACHS [facility] PRN Reason: Protocol Last Admin: 04/02/17 08:27 Dose: 2 units Insulin Human Lispro (Humalog) 2 units SC ACBL [facility] Last Admin: 04/02/17 08:28 Dose: 2 units Insulin Human Lispro (Humalog) 2 units SC ACD [facility] Last Admin: 03/31/17 17:02 Dose: 2 units Losartan Potassium (Cozaar) 25 mg PO DAILY [facility] Last Admin: 04/02/17 09:45 Dose: 25 mg Non-Formulary Medication (Victoza) 1.8 units SUBCUT DAILY [facility] Last Admin: 04/02/17 09:46 Dose: Not Given Ondansetron HCl (Zofran Inj) 4 mg IVP Q4H PRN PRN Reason: Nausea/Vomiting Pantoprazole Sodium (Protonix Ec Tab) 40 mg PO ACB [facility] Last Admin: 04/02/17 08:31 Dose: 40 mg Polyethylene Glycol (Miralax) 17 gm PO BID [facility] Last Admin: 04/02/17 09:49 Dose: Not Given - Labs Labs: 04/02/17 06:30 04/01/17 07:30 PT 11.4 Seconds (9.9-11.8) 03/28/17 13:43 INR 1.06 (0.93-1.08) 03/28/17 13:43 APTT 26.6 Seconds (23.7-30.8) 03/28/17 13:43 - Constitutional Appears: Well, No Acute Distress - Head Exam Head Exam: ATRAUMATIC, NORMAL INSPECTION, NORMOCEPHALIC - Eye Exam Eye Exam: EOMI, Normal appearance - ENT Exam ENT Exam: Mucous Membranes Moist, Normal Exam - Neck Exam Neck Exam: Full ROM, Normal Inspection - Respiratory Exam Respiratory Exam: Clear to Ausculation Bilateral, NORMAL BREATHING PATTERN. absent: Rales, Rhonchi, Wheezes - Cardiovascular Exam Cardiovascular Exam: REGULAR RHYTHM, +S1, +S2 - GI/Abdominal Exam GI & Abdominal Exam: Soft, Normal Bowel Sounds - Neurological Exam Neurological Exam: Alert, Awake, Oriented x3 - Psychiatric Exam Psychiatric exam: Normal Affect, Normal Mood - Skin Skin Exam: Normal Color, Warm (sero sanguineous drainage from amputation site, right foot hallux) Assessment and Plan - Assessment and Plan (Free Text) Assessment: This is a 72 yo M with PMH of DM II, HTN, and HLD who presented for right foot first toe amputation due to non-healing ulcer not improved with IV abx and prior debridements by Podiatry. He is POD #5 for amputation. Plan: 1. Right Hallux Amputation - POD #5, right foot wrapped and bandaged, serosanguineous drainage through bandage noted - Podiatry continues to follow along case, weight bearing as tolerated in surgical shoe - manager nursing home working on discharging patient to [facility] - As per podiatry, patient is stable - Right foot wound and bone tissue cultures both positive for Serratia Marcescens, will continue to treat with IV Meropenem 1 gm q8h, if pathology report clears margins of osteomyelitis, will switch to PO ciprofloxacin - Awaiting pathology report to show whether margins of bone are clear of osteomyelitis. If so will need IV abx treatment. 2. Cellulitis - Right foot wound and bone tissue cultures both positive for Serratia Marcescens, will continue to treat with IV Meropenem 1 gm q8h, if pathology report clears margins of osteomyelitis, will switch to PO ciprofloxacin - Awaiting pathology report to show whether margins of bone are clear of osteomyelitis. If so will need IV abx treatment. - WBC continues to downtrend, currently a 9.5. 3) DM II -Continue with Lispro 2 units SC, Victoza 1.8 units SC 4) HTN -Continue with Losartan 25 mg qD 5) HLD -Continue with Lipitor 10 mg PO DIN Dispo: Med/Surg, pending pathology margin results, on IV abx, transfer to [facility] FEN: Heart-healthy consistent carb Access: Peripheral IV, PICC line Consults: Podiatry, ID Ppx: Heparin SC for DVT, Protonix for GI Patient reviewed and discussed with attending, Dr. Greene.
--- NOTE | 2017-04-02 11:28 | CP.PCM.PN ---
Subjective - Date & Time of Evaluation Date of Evaluation: 04/02/17 Time of Evaluation: 10:00 - Subjective Subjective: Diabetic male seen at bedside with his daughter - pt is s/p 3 days post op amputation of the right hallux for gangrene; pt daughter stated that since the [facility] does not accept the patient's insurance she would like him to go to [facility]acute [facility] where his is now doing subacute rehab Objective - Vital Signs/Intake and Output Vital Signs (last 24 hours): Temp Pulse Resp BP Pulse Ox 98.1 F 73 20 133/73 96 04/02/17 07:40 04/02/17 09:45 04/02/17 07:40 04/02/17 09:45 04/02/17 07:40 Intake and Output: 04/02/17 04/02/17 06:59 18:59 Intake Total 1100 Balance 1100 - Medications Medications: Current Medications Acetaminophen (Tylenol 325mg Tab) 650 mg PO Q4H PRN PRN Reason: Pain, Mild (1-3) Last Admin: 03/30/17 19:51 Dose: 650 mg Atorvastatin Calcium (Lipitor) 10 mg PO DIN [facility] Last Admin: 03/31/17 17:03 Dose: 10 mg Meropenem 1g/NS 100mL IVPB (Meropenem 1g/Ns 100ml Ivpb) 1 gm in 100 mls @ 100 mls/hr IVPB Q8 GERRY PRN Reason: Protocol Stop: 04/06/17 22:01 Last Admin: 04/02/17 06:50 Dose: 100 mls/hr Insulin Human Lispro (Humalog High) 0 units SC ACHS GERRY PRN Reason: Protocol Last Admin: 04/02/17 08:27 Dose: 2 units Insulin Human Lispro (Humalog) 2 units SC ACBL [facility] Last Admin: 04/02/17 08:28 Dose: 2 units Insulin Human Lispro (Humalog) 2 units SC ACD [facility] Last Admin: 03/31/17 17:02 Dose: 2 units Losartan Potassium (Cozaar) 25 mg PO DAILY [facility] Last Admin: 04/02/17 09:45 Dose: 25 mg Non-Formulary Medication (Victoza) 1.8 units SUBCUT DAILY [facility] Last Admin: 04/02/17 09:46 Dose: Not Given Ondansetron HCl (Zofran Inj) 4 mg IVP Q4H PRN PRN Reason: Nausea/Vomiting Pantoprazole Sodium (Protonix Ec Tab) 40 mg PO ACB [facility] Last Admin: 04/02/17 08:31 Dose: 40 mg Polyethylene Glycol (Miralax) 17 gm PO BID [facility] Last Admin: 04/02/17 09:49 Dose: Not Given - Labs Labs: 04/02/17 06:30 04/01/17 07:30 PT 11.4 Seconds (9.9-11.8) 03/28/17 13:43 INR 1.06 (0.93-1.08) 03/28/17 13:43 APTT 26.6 Seconds (23.7-30.8) 03/28/17 13:43 - Constitutional Appears: Well, No Acute Distress - Extremities Exam Extremities Exam: Normal Capillary Refill. absent: Calf Tenderness Additional comments: Vascular intact with palpable DP pulse to the right foot; dressing with small amount of bloody drainage; sutures are intact - no cellulitis no fluctuance no calor mild edema noted to the foot and leg Assessment and Plan - Assessment and Plan (Free Text) Assessment: DM/Neuropathy s/p amputation of right hallux 3 days - stable Plan: continue local care with betadine to suture area and well padded DSD Q48h may walk full weight bearing with the forefoot wedge shoe OK with Podiatry for patient to go to subacute Review of pt's intra-op C+S + serratia - sensative to [facility] pt to go to rehab on [facility] pending pathology report Pt to follow up in private office Apr 17
[2017-04-02 12:47] LABS: ALB/GLOB RATIO 0.7 (1.1-1.8); ALBUMIN 3.5 g/dL (3.0-4.8); ALT/SGPT 36 U/L (7-56); AST/SGOT 50 U/L (15-59); BLOOD UREA NITROGEN 21 mg/dL (7-21); CALCIUM 9.5 mg/dL (8.4-10.5); GFR AFRICAN-AMERICAN > 60; GFR NON-AFRICAN AMERICAN > 60; MAGNESIUM 1.8 mg/dL (1.7-2.2)
--- NOTE | 2017-04-02 14:01 | CP.PCM.PN ---
Subjective - Date & Time of Evaluation Date of Evaluation: 04/02/17 Time of Evaluation: 10:55 - Subjective Subjective: Comfortable, not in distress, no fevers overnight. Objective - Vital Signs/Intake and Output Vital Signs (last 24 hours): Temp Pulse Resp BP Pulse Ox 98.1 F 73 20 133/73 96 04/02/17 07:40 04/02/17 07:40 04/02/17 07:40 04/02/17 07:40 04/02/17 07:40 Intake and Output: 04/02/17 04/02/17 06:59 18:59 Intake Total 1100 Balance 1100 - Medications Medications: Current Medications Acetaminophen (Tylenol 325mg Tab) 650 mg PO Q4H PRN PRN Reason: Pain, Mild (1-3) Last Admin: 03/30/17 19:51 Dose: 650 mg Atorvastatin Calcium (Lipitor) 10 mg PO DIN [facility] Last Admin: 03/31/17 17:03 Dose: 10 mg Meropenem 1g/NS 100mL IVPB (Meropenem 1g/Ns 100ml Ivpb) 1 gm in 100 mls @ 100 mls/hr IVPB Q8 GERRY PRN Reason: Protocol Stop: 04/06/17 22:01 Last Admin: 04/02/17 06:50 Dose: 100 mls/hr Insulin Human Lispro (Humalog High) 0 units SC ACHS GERRY PRN Reason: Protocol Last Admin: 04/02/17 08:27 Dose: 2 units Insulin Human Lispro (Humalog) 2 units SC ACBL [facility] Last Admin: 04/02/17 08:28 Dose: 2 units Insulin Human Lispro (Humalog) 2 units SC ACD [facility] Last Admin: 03/31/17 17:02 Dose: 2 units Losartan Potassium (Cozaar) 25 mg PO DAILY [facility] Last Admin: 04/01/17 10:09 Dose: 25 mg Non-Formulary Medication (Victoza) 1.8 units SUBCUT DAILY [facility] Last Admin: 04/01/17 10:13 Dose: Not Given Ondansetron HCl (Zofran Inj) 4 mg IVP Q4H PRN PRN Reason: Nausea/Vomiting Pantoprazole Sodium (Protonix Ec Tab) 40 mg PO ACB [facility] Last Admin: 04/02/17 08:31 Dose: 40 mg Polyethylene Glycol (Miralax) 17 gm PO BID [facility] Last Admin: 04/01/17 17:54 Dose: 17 gm - Labs Labs: 04/02/17 06:30 04/01/17 07:30 PT 11.4 Seconds (9.9-11.8) 03/28/17 13:43 INR 1.06 (0.93-1.08) 03/28/17 13:43 APTT 26.6 Seconds (23.7-30.8) 03/28/17 13:43 - Constitutional Appears: Non-toxic, No Acute Distress - Head Exam Head Exam: NORMAL INSPECTION - Respiratory Exam Respiratory Exam: Decreased Breath Sounds - Cardiovascular Exam Cardiovascular Exam: +S1, +S2 - GI/Abdominal Exam GI & Abdominal Exam: Soft. absent: Tenderness - Extremities Exam Additional comments: right foot with dressings in place Assessment and Plan - Assessment and Plan (Free Text) Plan: Assessment Right hallux infected ulcer (with gangrene) ,growing Serratia S/P 1st ray amputation DM HTN dyslipidemia psoriasis history of wounds in the foot history of rib fractures due to trauma Plan on [place] - follow up OR pathology to determine duration of treatment will follow clinically while the patient is in the hospital
[2017-04-02 16:15] VITALS: BP 124/72; PULSE 76; TEMP 98.2; O2SAT 92
--- NOTE | 2017-04-02 18:05 | CP.PCM.DIS ---
Provider - Provider Date of Admission: 03/28/17 11:10 Attending physician: Amrit Greene MD Primary care physician: Efren Hamm MD Consults: Podiatry: Dr. Baron ID: Dr. [id number] Time Spent in preparation of Discharge (in minutes): 35 Diagnosis - Discharge Diagnosis (1) Diabetes Status: Chronic Priority: Medium (2) Diabetic infection of right foot Status: Acute Priority: High (3) HLD (hyperlipidemia) Status: Chronic Priority: Medium (4) HTN (hypertension) Status: Chronic Priority: Medium Hospital Course - Lab Results Lab Results: Micro Results 03/28/17 18:51 Foot - Right Gram Stain - Final 03/28/17 18:51 Foot - Right Wound Culture - Final Serratia Marcescens 03/28/17 18:51 Bone Gram Stain - Final 03/28/17 18:51 Bone Tissue Culture - Final Serratia Marcescens 03/29/17 15:30 Urine Urine Culture - Final No Growth (<1,000 CFU/ML) Most Recent Lab Values WBC 9.5 10^3/ul (4.5-11.0) 04/02/17 06:30 RBC 4.20 10^6/uL (3.5-6.1) 04/02/17 06:30 Hgb 12.2 gm/dL (14.0-18.0) L 04/02/17 06:30 Hct 37.3 % (42.0-52.0) L 04/02/17 06:30 MCV 88.8 fL (80.0-105.0) 04/02/17 06:30 MCH 29.0 pg (25.0-35.0) 04/02/17 06:30 MCHC 32.7 g/dl (31.0-37.0) 04/02/17 06:30 RDW 13.6 % (11.5-14.5) 04/02/17 06:30 Plt Count 232 10^3/uL (120.0-450.0) 04/02/17 06:30 MPV 8.9 fl (7.0-11.0) 04/02/17 06:30 Gran % 56.8 % (50.0-68.0) 04/02/17 06:30 Lymph % (Auto) 20.8 % (22.0-35.0) L 04/02/17 06:30 [place] % (Auto) 10.2 % (1.0-6.0) H 04/02/17 06:30 Eos % (Auto) 11.9 % (1.5-5.0) H 04/02/17 06:30 Baso % (Auto) 0.3 % (0.0-3.0) 04/02/17 06:30 Gran # 5.37 (1.4-6.5) 04/02/17 06:30 Lymph # 2.0 (1.2-3.4) 04/02/17 06:30 [place] # 1.0 (0.1-0.6) H 04/02/17 06:30 Eos # 1.1 (0.0-0.7) H 04/02/17 06:30 Baso # 0.03 K/mm3 (0.0-2.0) 04/02/17 06:30 ESR 49 mm/hr (0.00-15.0) H 03/31/17 06:00 PT 11.4 Seconds (9.9-11.8) 03/28/17 13:43 INR 1.06 (0.93-1.08) 03/28/17 13:43 APTT 26.6 Seconds (23.7-30.8) 03/28/17 13:43 Sodium 133 mmol/L (132-148) 04/02/17 10:00 Potassium 4.8 mmol/L (3.6-5.0) 04/02/17 10:00 Chloride 98 mmol/L (98-107) 04/02/17 10:00 Carbon Dioxide 27 mmol/L (21-33) 04/02/17 10:00 Anion Gap 13 (10-20) 04/02/17 10:00 BUN 21 mg/dL (7-21) 04/02/17 10:00 Creatinine 1.1 mg/dL (0.5-1.4) 04/02/17 10:00 Est GFR ( Amer) > 60 04/02/17 10:00 Est GFR (Non-Af Amer) > 60 04/02/17 10:00 POC Glucose (mg/dL) 272 mg/dL (65-110) H 04/02/17 11:37 Random Glucose 263 mg/dL (70-110) H 04/02/17 10:00 Calcium 9.5 mg/dL (8.4-10.5) 04/02/17 10:00 Phosphorus 3.5 mg/dL (2.5-4.5) 04/02/17 10:00 Magnesium 1.8 mg/dL (1.7-2.2) 04/02/17 10:00 Total Bilirubin 0.7 mg/dL (0.2-1.3) 04/02/17 10:00 Direct Bilirubin 0.3 mg/dL (0.0-0.4) 04/01/17 07:30 AST 50 U/L (15-59) 04/02/17 10:00 ALT 36 U/L (7-56) 04/02/17 10:00 Alkaline Phosphatase 209 U/L (38-133) H 04/02/17 10:00 C-React Prot High Sens > 15.00 mg/L (1.00-3.00) H 03/31/17 06:00 Total Protein 8.9 g/dL (5.8-8.3) H 04/02/17 10:00 Albumin 3.5 g/dL (3.0-4.8) 04/02/17 10:00 Globulin 5.3 gm/dL 04/02/17 10:00 Albumin/Globulin Ratio 0.7 (1.1-1.8) L 04/02/17 10:00 Blood Type O POSITIVE 03/28/17 11:19 Antibody Screen Negative 03/28/17 11:19 BBK History Checked Patient has bt 03/28/17 11:19 - Hospital Course Hospital Course: 72 year old patient PMH DM II presented on 03/28/17 to [facility] as advised after seeking a second opinion at [place] regarding his right hallux amputation due to gangrene and infection for which patient was receiving abx via PICC. Patient contacted Dr. Baron regarding the advice given to him and was then instructed by Dr. Baron to present to the [facility] emergency department for pre-op evaluation and management. S/P surgery patient was doing well and stable. Originally the right foot wound and bone tissue cultures both positive for Serratia Marcescens which was resistant to ancef, so the patient was switched to IV Meropenem 1 gm q8h as per ID. Patient discharged to subacute rehab to continue IV therapy. Further rehabilitation will be done at [facility] where his is doing subacute rehab s/p chemo. Plan was reviewed and discussed with patient, patient expressed understanding and agreement. Discharge Exam - Head Exam Head Exam: ATRAUMATIC, NORMAL INSPECTION, NORMOCEPHALIC - Eye Exam Eye Exam: EOMI, Normal appearance - ENT Exam ENT Exam: Mucous Membranes Moist, Normal Exam - Respiratory Exam Respiratory Exam: Clear to PA & Lateral, NORMAL BREATHING PATTERN - Cardiovascular Exam Cardiovascular Exam: REGULAR RHYTHM, +S1, +S2. absent: Clicks, Gallop - GI/Abdominal Exam GI & Abdominal Exam: Normal Bowel Sounds, Unremarkable - Extremities Exam Extremities exam: tenderness - Neurological Exam Neurological exam: Alert, CN II-XII Intact, Oriented x3 - Psychiatric Exam Psychiatric exam: Normal Affect, Normal Mood - Skin Skin Exam: Dry, Warm (Serosanguineous drainage from site of right hallux amputation ) Discharge Plan - Follow Up Plan Condition: GOOD Disposition: REHAB FACILITY/REHAB UNIT Patient education suggested?: No Instructions: Pneumococcal Vaccine for Adults (GEN), How to Check Your Blood Sugar (GEN), Basic Carbohydrate Counting (DC), Acute Wound Care (DC), Managing Diabetes During Sick Days (GEN), Hypertension (GEN), Toe Amputation (DC), Fall Prevention (DC) Additional Instructions: DISCHARGE TO [facility] OF PATIENT'S/FAMILY CHOICE CONTINUE IV ABX FOR 6-8 WEEKS CBC/CMP/ESR/CRP 2-3 X PER WEEK DISCHARGE MEDS PER MAR FOLLOW UP AT [facility] Follow up with Dr. Baron in one week. Referrals: Efren Hamm MD [Primary Care Provider] - 1 Week (DISCHARGE TO [facility] OF PATIENT'S/FAMILY CHOICE CONTINUE IV ABX FOR 6-8 WEEKS CBC/CMP/ESR/CRP 2-3 X PER WEEK DISCHARGE MEDS PER MAR FOLLOW UP AT [facility])
--- NOTE | 2017-04-03 07:31 | DS ---
The patient is seen in room 576, bed #2. He has been in the process of being moved to 573 bed #2 because of the patient's daughter is at bedside. PHYSICAL EXAMINATION: VITAL SIGNS: T-max 98.2, pulse 73, blood pressure 133/73, respiration 20 and O2 sat 96%. HEAD: Normocephalic and atraumatic. HEENT: Shows pinkish conjunctivae. Anicteric sclerae. No oropharyngeal lesions. No neck rigidity. CHEST: Kyphosis. LUNGS: Shows no rales, crackles or wheezing. CARDIOVASCULAR: S1 and S2, regular rhythm. ABDOMEN: Soft. Positive bowel sounds. NOEMI drain has been removed. GENITALIA: Male. RECTAL: Deferred. EXTREMITIES: Positive dressing of the right foot noted. Positive left upper extremity PICC line. VASCULAR: Palpable pulses. MUSCULOSKELETAL: Shows a body mass index of 35. GAIT: Independent. NEUROLOGIC: The patient is alert, awake and oriented x3. DIAGNOSTIC DATA: On 04/02/2017, WBC 9.5, hemoglobin and hematocrit 12.2 and 37.3, and platelet 232. Fingerstick blood sugar 250, 234, 265, 184, 187 and 236. LFT's are normal. Wound culture are growing Serratia marcescens. Pathology reports still pending despite multiple phone calls and attempt to find the pathology report for the amputation. FINAL IMPRESSION AND PLAN AND DISCHARGE DIAGNOSES: 1. Serratia marcescens, right foot big toe, diabetic foot ulceration, gangrene and clinical osteomyelitis. 2. Status post right foot big foot big toe first ray amputation. 3. Constipation. 4. Hypertension. 5. Leukocytosis with granulocytosis. 6. Elevated erythrocyte sedimentation rate of 40s and 60s. 7. Uncontrolled insulin requiring diabetes mellitus with hyperglycemia. 8. Elevated C-reactive protein of greater than 15. 9. Status post left upper extremity peripherally inserted central catheter placement. 10. Serratia marcescens, right foot big toe, right hallux diabetic ulcerations with gangrene and clinical osteomyelitis. 11. Status post right foot big toe first ray amputation with amputation of the hallux. 12. 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 13. History of dyslipidemia. PLAN: At this time, I received a phone call from the correctional counselor/case manager Jessika Deleon. The patient has been cleared by Dr. Baron, podiatry for discharge on IV antibiotics. Awaiting pathology. The patient has been cleared by podiatry. The patient will be discharged to subacute rehab of the patient's and family's choice. DISCHARGE MEDICATIONS: Cozaar 25 mg daily, Humalog 2 units for breakfast, lunch and dinner and Humalog high dose sliding scale coverage before meals and at bedtime, Lipitor 10 mg daily, meropenem 1 g IV q.8, MiraLax 17 g twice a day, Protonix 40 mg daily, Tylenol 650 q.4 p.r.n., Victoza 1.8 units subq daily, Zofran 4 mg IV q.4 p.r.n. The patient is at present time needs to continue with the IV meropenem 1 g IV q.8 until availability of the pathology report which will determine the duration of the IV antibiotic which the patient and daughter is aware off. The patient is to continue IV antibiotics for 6 to 8 weeks at present. The patient has been ordered CBC, CMP, ESR, CRP 2 to 3 times per week. The patient is to be followed up with Dr. Hamm at the subacute rehab which is [facility]. Given this hospitalization, the patient was extensively explained about details of his medical condition, diagnosis, treatment plan and management plan. All the details discussed and explained to the patient and the patient's family at length on multiple occasions which they acknowledged and understand. Time spent in the entire discharge process more than 45 minutes. Dictated and electronically signed, not read. Signing off Amrit Greene MD. Amrit Greene MD
== END 2017-04-02 17:41 | DRG 617 ==
LOC: ED 10:14 → ERH 11:10 → 5RSO 12:32
PROVIDERS: ADMIT Internal Medicine; ATTEND Internal Medicine
PROC: 0HBMXZZ Excision of Right Foot Skin, External Approach (ICD-10-PCS; 2017-03-28)
PROC: 0Y6M0Z9 Detachment at Right Foot, Partial 1st Ray, Open Approach (ICD-10-PCS; principal; 2017-03-28 17:00)
DX: E11.621 Type 2 diabetes mellitus with foot ulcer (principal); E11.52 Type 2 diabetes mellitus with diabetic peripheral angiopathy with gangrene; R65.10 Systemic inflammatory response syndrome (SIRS) of non-infectious origin without acute organ dysfunction; L02.619 Cutaneous abscess of unspecified foot; E11.65 Type 2 diabetes mellitus with hyperglycemia; E83.42 Hypomagnesemia; B96.89 Other specified bacterial agents as the cause of diseases classified elsewhere; I45.2 Bifascicular block; L97.519 Non-pressure chronic ulcer of other part of right foot with unspecified severity; E11.42 Type 2 diabetes mellitus with diabetic polyneuropathy; E11.628 Type 2 diabetes mellitus with other skin complications; E55.9 Vitamin D deficiency, unspecified; D64.9 Anemia, unspecified; D72.829 Elevated white blood cell count, unspecified; E66.9 Obesity, unspecified; E78.00 Pure hypercholesterolemia, unspecified; E78.5 Hyperlipidemia, unspecified; I10 Essential (primary) hypertension; I45.10 Unspecified right bundle-branch block; K59.00 Constipation, unspecified; L40.9 Psoriasis, unspecified; Z79.4 Long term (current) use of insulin; Z79.899 Other long term (current) drug therapy; Z90.49 Acquired absence of other specified parts of digestive tract; Z92.21 Personal history of antineoplastic chemotherapy; Z91.018 Allergy to other foods; R40.2412 Glasgow coma scale score 13-15, at arrival to emergency department; L03.031 Cellulitis of right toe; R74.8 Abnormal levels of other serum enzymes; R70.0 Elevated erythrocyte sedimentation rate; R79.82 Elevated C-reactive protein (CRP); R26.9 Unspecified abnormalities of gait and mobility

== ENCOUNTER 2017-11-18 15:21 | Inpatient (IN) | payer MEDICARE ==
[2017-11-18] MEDS ORDERED: Vancomycin 1gm in NS 250ml 1 GM/250 ML BAG IVPB STA (15:56)
[2017-11-18] MEDS ORDERED: DiphenhydrAMINE 50 mg/ml Inj IVP ONE (16:31)
--- NOTE | 2017-11-18 16:40 | ED PDOC ---
Arrival/HPI - General Chief Complaint: Lower Extremity Problem/Injury Time Seen by Provider: 11/18/17 15:32 Historian: Patient - History of Present Illness Narrative History of Present Illness (Text): 11/18/17 16:35 72 year old male presents to the Emergency department complaining of a fever measured up to 103 degrees. Patient also has a draining ulcer on the right plantar foot that has a fowl smell and purulent discharge. This morning, the patient also noted an itchy, erythematous, raised rash. Patient was on a cruise for the last week; symptoms began during the cruise. Patient denies any chest pain, shortness of breath, nausea, vomiting, diarrhea, genitourinary symptoms, back pain, neck pain, headache, dizziness, or any other complaints. Time/Duration: < week Symptom Onset: Gradual Symptom Course: Unchanged Context: Other (while on a cruise) Associated Symptoms (Text): 11/18/17 16:58 7 day history of diabetic right plantar foot ulcer with purulent discharge and foul smell. Fever to 103. Also today he developed a severe erythematous raised urticarial itchy generalized rash. No cough congestion or URI. No sputum production. No abdominal pain nausea vomiting or diarrhea. No genitourinary symptoms. 11/18/17 18:56 Past Medical History - Provider Review Nursing Documentation Reviewed: Yes - Travel History If Yes, travel location?: [place] - Infectious Disease Hx of Infectious Diseases: None - Cardiac Hx Hypertension: Yes - Pulmonary Hx Respiratory Disorders: Yes Other/Comment: 5 broken ribs and scar tissue to R lung - Neurological Hx Neurological Disorder: No - HEENT Hx HEENT Disorder: Yes Other/Comment: glasses - Renal Hx Renal Disorder: No - Endocrine/Metabolic Hx Diabetes Mellitus Type 2: Yes - Hematological/Oncological Hx Blood Transfusions: No - Integumentary Hx Psoriasis: Yes - Musculoskeletal/Rheumatological Hx Falls: No - Gastrointestinal Hx Gastrointestinal Disorders: No - Genitourinary/Gynecological Hx Genitourinary Disorders: No - Psychiatric Hx Emotional Abuse: No Hx Physical Abuse: No Hx Substance Use: No - Surgical History Hx Orthopedic Surgery: Yes (rt toe amputee) - Anesthesia Hx Anesthesia Reactions: No Hx Malignant Hyperthermia: No - Suicidal Assessment Feels Threatened In Home Enviroment: No Family/Social History - Physician Review Nursing Documentation Reviewed: Yes Family/Social History: Unknown Family HX Smoking Status: Former Smoker (quit 30 years ago) Hx Alcohol Use: Yes Frequency of alcohol use: Socially Hx Substance Use: No Allergies/Home Meds Allergies/Adverse Reactions: Allergies kiwi Allergy (Verified 11/18/17 15:42) RASH strawberry Adverse Reaction (Verified 11/18/17 15:42) RASH rasberries Adverse Reaction (Intermediate, Uncoded 03/28/17 10:18) RASH Home Medications: Home Meds Medication Instructions Recorded Confirmed Novolog 2 units SUBCUT ACD 07/08/15 11/18/17 Zocor 20 mg PO DAILY 07/08/15 11/18/17 Canagliflozin [Invokana] 100 mg PO DAILY 11/18/17 11/18/17 Insulin Aspart, Recombinant 2 unit 11/18/17 [Novolog] Insulin Glargine, Recombina 40 units SQ ACB 11/18/17 11/18/17 [Lantus] Liraglutide [Victoza] 1.8 units SC DAILY 11/18/17 11/18/17 Metformin HCl [Glucophage] 1,000 mg PO BID 11/18/17 11/18/17 Multivitamin [Multivitamin] 1 sgl PO DAILY 11/18/17 11/18/17 Prinzide 10/12.5 1 tab PO DAILY 11/18/17 11/18/17 Review of Systems - Physician Review All systems were reviewed & negative as marked: Yes - Review of Systems Constitutional: Fatigue, Fevers Respiratory: absent: SOB, Cough, Sputum, Wheezing Cardiovascular: absent: Chest Pain, Palpitations, Syncope Gastrointestinal: absent: Abdominal Pain, Diarrhea, Nausea, Vomiting Genitourinary Male: absent: Dysuria, Frequency, Hematuria Musculoskeletal: absent: Back Pain, Neck Pain Skin: Rash, Ulcer Neurological: absent: Headache, Dizziness, Focal Weakness Physical Exam Vital Signs Reviewed: Yes Vital Signs Temp Pulse Resp BP Pulse Ox 11/18/17 18:24 103.1 F H 11/18/17 16:19 103.1 F H 11/18/17 15:53 103.1 F H 102 H 22 111/59 L 93 L Temperature: Febrile Blood Pressure: Normal Pulse: Tachycardic Respiratory Rate: Normal Appearance: Positive for: Ill-Appearing. No: Well-Appearing Pain Distress: None Mental Status: Positive for: Alert and Oriented X 3 - Systems Exam Head: Present: Atraumatic, Normocephalic Pupils: Present: PERRL Extroacular Muscles: Present: EOMI Conjunctiva: Present: Normal Ears: Present: NORMAL TM, Normal Canal. No: Erythema Mouth: Present: Moist Mucous Membranes Pharnyx: No: ERYTHEMA, EXUDATE, TONSILS ENLARGED Neck: Present: Normal Range of Motion Respiratory/Chest: Present: Clear to Auscultation, Good Air Exchange. No: Respiratory Distress, Accessory Muscle Use Cardiovascular: Present: Regular Rate and Rhythm, Normal S1, S2. No: Murmurs Abdomen: Present: Normal Bowel Sounds. No: Tenderness, Distention, Peritoneal Signs, Rebound, Guarding Back: Present: Normal Inspection Upper Extremity: Present: Normal Inspection. No: Cyanosis, Edema Lower Extremity: Present: Other (Right plantar foot 1 cm ulcer with foul smelling purulent drainage. Great toe amputation. The dorsal surface of the foot is erythematous tender swollen and warm also). No: Normal Inspection, Edema Neurological: Present: GCS=15, CN II-XII Intact, Speech Normal Skin: Present: Rashes (diffuse psoriatic rash, diffuse raised urticarial rash), Other (Plantar surface of right foot contains a 1cm ulcer that is draining with a foul smell, purulent material, tenderness, and warmth. The right great toe was amputated in summer.) Psychiatric: Present: Alert, Oriented x 3, Normal Insight, Normal Concentration Medical Decision Making ED Course and Treatment: 11/18/17 16:38 Impression: 72 year old male presents to the Emergency department complaining of fever, rash , and ulcer to right foot. Plan: -- Chest xray, right foot xray -- EKG -- Blood culture, urine culture -- Urinalysis -- VBG -- Labs -- Benadryl, Prednisone, Tylenol, Vancomycin -- Reassess and disposition Progress Notes: 11/18/17 17:01 Discussed with , who will see the patient in consultation 11/18/17 17:27 EKG shows normal sinus rhythm rate approximately 110 with PACs and no acute ST or T-wave changes 11/18/17 18:27 Allergic component to his rash is markedly improved. - Lab Interpretations Lab Results: 11/18/17 16:10 11/18/17 16:10 Lab Results 11/18/17 17:25: PT 12.5, INR 1.09 H, APTT 21.2 L 11/18/17 16:10: Sodium 133, Chloride 97 L, Potassium 3.9, Carbon Dioxide 25, Anion Gap 15, BUN 42 H, Creatinine 2.1 H, Est GFR ( Amer) 38, Est GFR ( Non-Af Amer) 31, Random Glucose 166 H, Calcium 9.3, Phosphorus 3.5, Magnesium 2.0, Total Bilirubin 2.3 H, AST 98 H, ALT 102 H, Alkaline Phosphatase 205 H, Total Protein 7.3, Albumin 3.4, Globulin 3.8, Albumin/Globulin Ratio 0.9 L 11/18/17 16:10: pO2 53, VBG pH 7.35, VBG pCO2 47.0, VBG HCO3 25.9, VBG Total CO2 27.3, VBG O2 Sat (Calc) 91.4 H, VBG Base Excess -0.2 L, VBG Potassium 4.9, Sodium 129.0 L, Chloride 96.0 L, Glucose 167 H, Lactate 3.2 H, FiO2 21.0, Venous Blood Potassium 4.9 11/18/17 16:10: WBC 21.2 H D, RBC 4.92, Hgb 14.9, Hct 44.3, MCV 90.0, MCH 30.3, MCHC 33.6, RDW 14.5, Plt Count 145, MPV 10.3, Crowley % (Auto) 6.5 H, Eos % (Auto) 0.0 L, Baso % (Auto) 0.1, Crowley # (Auto) 1.4 H, Eos # (Auto) 0.0, Baso # (Auto) 0.03, Neutrophils % (Manual) 77 H, Band Neutrophils % 12 H*, Lymphocytes % ( Manual) 4 L, Monocytes % (Manual) 4, Metamyelocytes % 1, Myelocytes % 1, Platelet Evaluation Normal - RAD Interpretation Radiology Orders: 11/18/17 15:56 FOOT RIGHT 3 VIEWS ROUTINE [RAD] Stat 11/18/17 15:57 CHEST ONE VIEW [RAD] Stat Chest one view shows no infiltrate or effusion. Right foot 3 views shows the previous amputation. No fracture or dislocation. Policy Advisor: ED Physician - Medication Orders Current Medication Orders: Acetaminophen (Tylenol 325mg Tab) 975 mg PO ONCE PRN PRN Reason: Fever >100.4 F Last Admin: 11/18/17 16:19 Dose: 975 mg MAR Pain/Vitals Document 11/18/17 16:19 OCS (Rec: 11/18/17 16:21 OCS [id number]) Pain Reassessment Is This A Pain ReAssessment? No Sleep Is patient sleeping during reassessment? No Presence of Pain Presence of Pain Yes Location Left, Right or Bilateral Right Pain Location Body Site Foot Description Constant Pressure Intensity 2 Scale Used Numeric Aggravating Factors ADL's Vitals Temperature (97.6 F-99.6 F) 103.1 F Temperature Source Rectal Discontinued Medications Diphenhydramine HCl (Benadryl) 50 mg IVP ONCE ONE Stop: 11/18/17 16:32 Last Admin: 11/18/17 16:39 Dose: 50 mg IVP Administration Document 11/18/17 16:39 OCS (Rec: 11/18/17 16:39 OCS [id number]) Charges for Administration # of IVP Administrations 1 Vancomycin HCl (Vancomycin 1gm) 1 gm in 250 mls @ 167 mls/hr IVPB STAT STA PRN Reason: Protocol Stop: 11/18/17 17:25 Last Admin: 11/18/17 17:35 Dose: 167 mls/hr eMAR Start Stop Document 11/18/17 17:35 OCS (Rec: 11/18/17 17:35 OCS [id number]) Intravenous Solution Start Date 11/18/17 Start Time 17:35 End Date 11/18/17 End time 19:05 Total Infusion Time 90 Lactated Ringer's 4,000 ml/ IV (SUPPLIES) 4,000 mls @ 7,320.96 mls/hr IV ONCE ONE PRN Reason: 60 ML/KG/HR Stop: 11/18/17 18:03 Last Admin: 11/18/17 18:34 Dose: 7,320.96 mls/hr eMAR Start Stop Document 11/18/17 18:34 OCS (Rec: 11/18/17 18:35 OCS [id number]) Intravenous Solution Start Date 11/18/17 Start Time 18:34 End Date 11/18/17 End time 19:06 Total Infusion Time 32 Methylprednisolone (Solu-Medrol) 125 mg IVP ONCE ONE Stop: 11/18/17 16:32 Last Admin: 11/18/17 16:39 Dose: 125 mg IVP Administration Document 11/18/17 16:39 OCS (Rec: 11/18/17 16:39 OCS [id number]) Charges for Administration # of IVP Administrations 1 - Scribe Statement The provider has reviewed the documentation as recorded by the Scribe Richard Londono Provider Scribe Attestation: All medical record entries made by the Scribe were at my direction and personally dictated by me. I have reviewed the chart and agree that the record accurately reflects my personal performance of the history, physical exam, medical decision making, and the department course for this patient. I have also personally directed, reviewed, and agree with the discharge instructions and disposition. Disposition/Present on Arrival - Present on Arrival Any Indicators Present on Arrival: No History of DVT/PE: No History of Uncontrolled Diabetes: Yes Urinary Catheter: No History of Decub. Ulcer: No History Surgical Site Infection Following: None - Disposition Have Diagnosis and Disposition been Completed?: Yes Diagnosis: Diabetic infection of right foot, Renal failure, Dehydration, Fever, Sepsis, Cellulitis, Leukocytosis, Hyperglycemia, Allergic reaction, Psoriasis, Osteomyelitis Disposition: HOSPITALIZED Disposition Time: 18:07 Patient Plan: Admission Patient Problems: Current Active Problems Problem Status Onset Allergic reaction Acute Cellulitis Acute Dehydration Acute Diabetic infection of right foot Acute Fever Acute Hyperglycemia Acute Leukocytosis Acute Osteomyelitis Acute Psoriasis Acute Renal failure Acute Sepsis Acute Condition: SERIOUS
[2017-11-18 17:33] LABS: BASO # 0.03 K/mm3 (0.0-2.0); BASO % 0.1 % (0.0-3.0); HEMOGLOBIN 14.9 g/dL (14.0-18.0); MEAN CORPUSCULAR HEMOGLOBIN 30.3 pg (25.0-35.0); MEAN CORPUSCULAR HGB CONC 33.6 g/dl (31.0-37.0); MEAN PLATELET VOLUME 10.3 fl (7.0-11.0); MONO # 1.4 (0.1-0.6); MONO % 6.5 % (1.0-6.0); PLATELET COUNT 145 10^3/uL (120.0-450.0); RBC 4.92 10^6/uL (3.5-6.1); RED CELL DISTRIBUTION WIDTH 14.5 % (11.5-14.5); WHITE BLOOD COUNT 21.2 10^3/ul (4.5-11.0)
[2017-11-18 17:40] LABS: VENOUS BLOOD GAS BASE EXCESS -0.2 mmol/L (0.0-2.0); VENOUS BLOOD GAS PO2 53 mm/Hg (30-55); VENOUS BLOOD PH 7.35 (7.32-7.43)
[2017-11-18 17:56] LABS: ALB/GLOB RATIO 0.9 (1.1-1.8); ALBUMIN 3.4 g/dL (3.0-4.8); CALCIUM 9.3 mg/dL (8.4-10.5)
[2017-11-18 17:58] LABS: INR 1.09 (0.93-1.08); PARTIAL THROMBOPLASTIN TIME 21.2 Seconds (25.1-36.5); PROTHROMBIN TIME 12.5 SECONDS (9.4-12.5)
[2017-11-18 18:12] LABS: NEUTROPHIL 77 % (50.0-70.0)
[2017-11-18 18:16] LABS: BAND 12 % (0-2); LYMPHOCYTE 4 % (22.0-35.0); METAMYELOCYTE 1 %; MONOCYTE 4 % (1.0-6.0); MYELOCYTE 1 %; PLATELET ESTIMATE NORMAL (NORMAL)
[2017-11-18 20:24] LABS: URINE APPEARANCE SL CLOUDY (CLEAR); URINE BILIRUBIN SMALL (NEGATIVE); URINE BLOOD MODERATE (NEGATIVE); URINE COLOR YELLOW (YELLOW); URINE GLUCOSE (UA) >=1000 mg/dL (NEGATIVE); URINE LEUKOCYTE ESTERASE NEGATIVE Leu/uL (NEGATIVE); URINE PROTEIN 30 mg/dL (<30 mg/dL)
[2017-11-18] MEDS ORDERED: DiphenhydrAMINE 50 mg/ml Inj IVP PRN (20:49)
[2017-11-18 20:51] LABS: URINE BACTERIA LARGE (NEG); URINE WBC 0 - 2 /hpf (0-6)
[2017-11-18] MEDS ORDERED: Sodium Chloride 0.45% 1,000 ML IV SCH (21:00)
[2017-11-18] MEDS: Meropenem IV 1 gm in NS 50 ML IVPB SCH (21:02)
[2017-11-18 21:35] LABS: VENOUS BLOOD GAS BASE EXCESS 0.5 mmol/L (0.0-2.0); VENOUS BLOOD GAS PO2 59 mm/Hg (30-55); VENOUS BLOOD PH 7.43 (7.32-7.43)
[2017-11-18 21:39] LABS: BASO # 0.03 K/mm3 (0.0-2.0); BASO % 0.1 % (0.0-3.0); GRAN # 22.14 (1.4-6.5); GRAN % 89.9 % (50.0-68.0); HEMOGLOBIN 13.3 g/dL (14.0-18.0); LYMPH # 1.2 (1.2-3.4); LYMPH % 4.9 % (22.0-35.0); MEAN CORPUSCULAR HEMOGLOBIN 29.8 pg (25.0-35.0); MEAN CORPUSCULAR HGB CONC 33.4 g/dl (31.0-37.0); MONO # 1.3 (0.1-0.6); MONO % 5.1 % (1.0-6.0); RBC 4.47 10^6/uL (3.5-6.1); RED CELL DISTRIBUTION WIDTH 14.4 % (11.5-14.5); WHITE BLOOD COUNT 24.6 10^3/ul (4.5-11.0)
[2017-11-18] MEDS: Insulin Reg-MEDIUM-Coverage SC SCH (21:47)
[2017-11-18] MEDS ORDERED: Linezolid 600 mg in D5W 300 ml 600 MG/300 ML BAG IVPB SCH (22:00)
[2017-11-18] MEDS ORDERED: Sodium Chloride 0.9% 500 ML IV STA (23:33)
[2017-11-18 23:40] LABS: ARTERIAL BLOOD GAS HCO3 20.2 mmol/L (21-28); ARTERIAL BLOOD GAS O2 SAT 96.7 % (95-98); ARTERIAL BLOOD GAS PCO2 35 mm/Hg (35-45); ARTERIAL BLOOD GAS PH 7.37 (7.35-7.45); ARTERIAL BLOOD GAS TCO2 21.3 mmol.L (22-28)
[2017-11-18] MEDS ORDERED: Sodium Chloride 0.9% 1,000 ML IV STA (23:59)
[2017-11-19] MEDS ORDERED: Levalbuterol 1.25 MG/3 ML Inhal Soln UD IH PRN (00:08)
--- NOTE | 2017-11-19 00:13 | PCM.RRT ---
MODELING ANALYST Nurse Assessment - Situation Date: 11/18/17 Time MODELING ANALYST was called: 23:25 MODELING ANALYST Responder Arrival Time: 23:28 MODELING ANALYST Location:: [address] [place] [address] Room Number: 571-02 MODELING ANALYST Reason for Call: Tachycardia, Hypotension MODELING ANALYST Called By: RN - IV IV Inserted during MODELING ANALYST?: No IV Fluids Initiated During MODELING ANALYST?: 1.5L NS bolus - Respiratory Oxygen Delivery Method: Nasal Cannula @L/min Oxygen Flow Rate: 5 Received Nebulizer Treatments:: No Was the Patient Ventilated with Bag/Mask 100% O2?: No Secretions Suctioned?: No Was the Patient Intubated?: No Was the Patient Placed on a Ventilator?: No - Medication Medications Administered During MODELING ANALYST: normal saline 500mL - Diagnostic Test Ordered EKG: Yes (Afib w/ RVR) Chest X-Ray: Yes (no pulm edema, no pleural effusions) - Stat Labs Ordered MODELING ANALYST Stat Labs Ordered: LACTIC ACID, ABG CPR started during MODELING ANALYST?: No - Vital Signs Vital Sign: Rapid Response Vital Sign Blood Pressure 83/54 Pulse Rate 136 Respiratory Rate 18 Temperature 98.5 F - Finger Stick Blood Glucose Finger Stick Blood Glucose: 220 - Sepsis Screen Part 1 Sepsis Screen Part 1: Hypotensive - Sepsis Screen Part 2 Sepsis Screen Part 2: Glucose elevated, Pt not on steroids, Bands over 10%, WBC over 12,000 - Vital Signs at end of MODELING ANALYST Vital Signs at end of MODELING ANALYST: Rapid Response End Vital Sign Blood Pressure 87/60 Pulse Rate 137 Respiratory Rate 20 Temperature 98.5 F - Recommendations 5) MODELING ANALYST Level of Care Recommendations: Transfer to ICU Notifications: Attending Physician, Family or Designated Caregiver I.Reason for MODELING ANALYST - A) Acute Change in Patient: (Select all that apply): Acute change in heart rate less than 50 or greater than 120 (HR > 140), Acute change in SBP below (90) - Neurological Status (Select all that apply): Alert, Responsive, Oriented, Verbal, Follows Commands. absent: Confused, Aggressive - Respiratory Oxygen Delivery Method: Nasal Cannula @L/min, BiPAP @% Oxygen Flow Rate: 4 - Constitutional Appears: Well, Non-toxic, No Acute Distress - Head Head Exam: ATRAUMATIC, NORMAL INSPECTION - Eyes Eye Exam: EOMI, Normal appearance, PERRL - Respiratory Exam Respiratory Exam: Rales (mild right side), NORMAL BREATHING PATTERN. absent: Rhonchi, Wheezes, Stridor - Cardiovascular Exam Cardiovascular Exam: Tachycardia, +S1, +S2 - GI/Abdominal Exam GI & Abdominal Exam: Soft, Normal Bowel Sounds. absent: Distended, Tenderness Additional comments: obese - Neurological Exam Neurological Exam: Alert, Awake, Oriented x3 - Extremities Exam Extremities Exam: Full ROM. absent: Pedal Edema Additional comments: diffuse erythematous rash scaling noted on rash on extensor surfaces, but not entire body s/p R toe #1 amputation R foot plantar surfaced single ulcer (dressing c/d/i) Plan - Assessment of Findings&Treatment Plan MODELING ANALYST was called due to patient being hypotensive and tachycardic, as noted by nurses. Upon arrival, the patient is awake and alert and in no acute respiratory distress. Per nurse, the patient is admitted earlier in the day for sepsis likely due to his R leg ulcer and that his BP has been low relative to his prior admissions but dropped to 80's/50's, and the patient was tachycardic, which was new. The patient states that he was on a cruise for the last week, and he noticed the ulcer and has had a fever for that time, which prompted him to come in. The patient is unsure about his rash. Per nurse, the patient only received 2L NS bolus in ED and was started @ 60cc/hr of 0.45 NS on the floors per admitting attending physician. EKG was done which showed Afib w/ RVR @ 134 bpm and incomplete RBBB. CXR was also done and did not show any pleural effusions or pulmonary edema, as reviewed with sales representative supervisor. Home meds were reviewed. Dr. Mendez was contacted regarding if patient has a history of CHF, but he was unable to provide a history of one. ABG w/ lactate was drawn and showed non-gap metabolic acidosis. ICU evaluated the patient and agreed to transfer the patient to ICU for monitoring, and for further care. 72yo M with a PMH of HTN, HLD and DM2 admitted for sepsis likely 2/2 R foot ulcer, with newly noted AFib w/ RVR and hypotension. MODELING ANALYST was called. Patient is on antibiotic coverage for cellulitis. Inappropriate fluid resuscitation was provided given sepsis presentation. Plan: - 500cc NS was given during MODELING ANALYST - 1L NS bolus needs to be given - CXR was noted - ABG was noted - EKG was noted - cont abx per ID recs - cont podiatry care per podiatry team, will need to r/o osteomyelitis - will transfer patient to ICU for further care - after proper fluid resuscitation, if BP doesn't respond, should consider TLC and pressor support Kenn Marie PGY1
[2017-11-19] MEDS: Meropenem IV 1 gm in NS 50 ML IVPB SCH ×3 (00:23→21:19)
--- NOTE | 2017-11-19 00:26 | CP.PCM.CON ---
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 Patient in the ED received 2 litters of LR, and was being infused 60 ml/ hr of NS, patient's lactic acid trended down from 3.2 to 1.8. Patient developed episodes of hypotension with SBP in the 80s, MAP of 68, thus TIME PIECE REPAIRER was called to evaluate patient's hypotension. Upon evaluation, patient was awake and alert, was saturating in the 95% on 5 litters of nasal cannula. Repeat ABG with lactic acid of 1.9, with PO2 of 71, ph 7.37, pco2 35. Patient underwent ekg with RVR Afib with HR in the 140s. Patient was started on fluid bolus. Patient will be transferred to ICU for further management and monitoring. Patient states he came back from a cruise ship yesterday, was there for a week. Symptoms started once he got home. Patient also had diffuse, errythematous rash through out his body. Currently states he's feeling tired, denies cp, sob, nausea or vomiting. No abdominal pain. 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 PSHx: as stated above FMHx: non contributory Social: denies tobacco abuse Home meds: as per chart. Allergy: kiwi, strawberry Review of Systems - Review of Systems All systems: reviewed and no additional remarkable complaints except Review of Systems: 10 ROS reviewed, all negative except as per HPI. Past Patient History - Infectious Disease Hx of Infectious Diseases: None - Past Social History Smoking Status: Former Smoker (quit 30 years ago) - CARDIAC Hx Hypertension: Yes - PULMONARY Hx Respiratory Disorders: Yes Other/Comment: 5 broken ribs and scar tissue to R lung - NEUROLOGICAL Hx Neurological Disorder: No - HEENT Hx HEENT Problems: Yes Other/Comment: glasses - RENAL Hx Chronic Kidney Disease: No - ENDOCRINE/METABOLIC Hx Diabetes Mellitus Type 2: Yes - HEMATOLOGICAL/ONCOLOGICAL Hx Blood Transfusions: No - INTEGUMENTARY Hx Psoriasis: Yes - MUSCULOSKELETAL/RHEUMATOLOGICAL Hx Falls: No - GASTROINTESTINAL Hx Gastrointestinal Disorders: No - GENITOURINARY/GYNECOLOGICAL Hx Genitourinary Disorders: No - PSYCHIATRIC Hx Emotional Abuse: No Hx Physical Abuse: No Hx Substance Use: No - SURGICAL HISTORY Hx Orthopedic Surgery: Yes (rt toe amputee) - ANESTHESIA Hx Anesthesia Reactions: No Hx Malignant Hyperthermia: No Meds Allergies/Adverse Reactions: Allergies Allergy/AdvReac Type Severity Reaction Status Date / Time kiwi Allergy RASH Verified 11/18/17 15:42 strawberry AdvReac RASH Verified 11/18/17 15:42 rasberries AdvReac Intermediate RASH Uncoded 03/28/17 10:18 - Medications Medications: Current Medications Acetaminophen (Tylenol 325mg Tab) 975 mg PO ONCE PRN PRN Reason: Fever >100.4 F Last Admin: 11/18/17 16:19 Dose: 975 mg Acetaminophen (Tylenol 325mg Tab) 650 mg PO Q6H PRN PRN Reason: Fever >100.4 F Diphenhydramine HCl (Benadryl) 25 mg IVP Q6 PRN PRN Reason: Rash Heparin Sodium (Porcine) (Heparin) 5,000 units SC Q8 GERRY PRN Reason: Protocol Meropenem (Merrem Iv 1 Gm Premix) 50 mls @ 100 mls/hr IVPB Q12 GERRY PRN Reason: Protocol Stop: 11/27/17 20:01 Last Admin: 11/18/17 21:02 Dose: 100 mls/hr Linezolid (Zyvox 600mg/300ml D5w) 600 mg in 300 mls @ 200 mls/hr IVPB Q12 GERRY PRN Reason: Protocol Stop: 11/27/17 22:01 Last Admin: 11/18/17 21:45 Dose: 200 mls/hr Sodium Chloride (Sodium Chloride 0.45%) 1,000 mls @ 60 mls/hr IV .[id number] GERRY Last Admin: 11/18/17 21:46 Dose: 60 mls/hr Sodium Chloride (Sodium Chloride 0.9%) 1,000 mls @ 999 mls/hr IV .Q1H1M STA Stop: 11/19/17 00:59 Last Admin: 11/19/17 00:01 Dose: 999 mls/hr Insulin Human Regular (Humulin R Med) 0 units SC ACHS [facility] PRN Reason: Protocol Last Admin: 11/18/17 21:47 Dose: Not Given Levalbuterol HCl (Xopenex) 0.63 mg IH [id number] Levalbuterol HCl (Xopenex) 1.25 mg IH [id number] PRN PRN Reason: Shortness of Breath Pantoprazole Sodium (Protonix Ec Tab) 40 mg PO 0600 [facility] Physical Exam - Constitutional Appears: No Acute Distress, Unkempt, Older Than Stated Age, Chronically Ill - Head Exam Head Exam: ATRAUMATIC, NORMAL INSPECTION, NORMOCEPHALIC - Eye Exam Eye Exam: EOMI, Normal appearance, PERRL. absent: Scleral icterus Pupil Exam: NORMAL ACCOMODATION - ENT Exam ENT Exam: Mucous Membranes Moist - Neck Exam Neck exam: Positive for: Normal Inspection - Respiratory Exam Respiratory Exam: Clear to Auscultation Bilateral, NORMAL BREATHING PATTERN. absent: Decreased Breath Sounds, Rales, Rhonchi, Wheezes, Respiratory Distress, Stridor - Cardiovascular Exam Cardiovascular Exam: Tachycardia, Irregular Rhythm, +S1, +S2. absent: Bradycardia, Diastolic murmur, Gallop, JVD, RRR, Rubs, Systolic Murmur - GI/Abdominal Exam GI & Abdominal Exam: Normal Bowel Sounds, Soft. absent: Diminished Bowel Sounds , Distended (obese abdomen), Firm, Guarding, Rebound, Rigid, Tenderness - Extremities Exam Extremities exam: Negative for: pedal edema, tenderness Additional comments: amputated right 1st toe. plantar right foot with purulent draining wound, with foul smelling. - Back Exam Back exam: rash noted. absent: NORMAL INSPECTION - Neurological Exam Neurological exam: Alert, Oriented x3 - Psychiatric Exam Psychiatric exam: Normal Affect, Normal Mood - Skin Skin Exam: Dry, Erythema, Rash (psoariatric rash with scales throughout the body , along with blanching erythematous plaques throughtout the body. ), Urticaria, Warm Results - Vital Signs Recent Vital Signs: Last Vital Signs Temp 99.8 F H 11/18/17 21:10 Pulse 88 11/18/17 21:10 Resp 20 11/18/17 21:10 BP 120/70 11/18/17 21:10 Pulse Ox 100 11/18/17 21:10 - Labs Result Diagrams: 11/18/17 21:20 11/19/17 00:20 Labs: Laboratory Results - last 24 hr 11/18/17 11/18/17 11/18/17 19:21 19:35 20:55 WBC RBC Hgb Hct MCV MCH MCHC RDW Plt Count MPV Gran % Lymph % (Auto) Walker % (Auto) Eos % (Auto) Baso % (Auto) Gran # Lymph # (Auto) Walker # (Auto) Eos # (Auto) Baso # (Auto) pCO2 pO2 HCO3 ABG pH ABG Total CO2 ABG O2 Saturation ABG Base Excess ABG Potassium VBG pH VBG pCO2 VBG HCO3 VBG Total CO2 VBG O2 Sat (Calc) VBG Base Excess VBG Potassium Sodium Chloride Glucose Lactate FiO2 POC Glucose (mg/dL) 158 H Lactic Acid 1.6 Arterial Blood Potassium Venous Blood Potassium Urine Color Yellow Urine Appearance Sl cloudy Urine pH 6.0 Ur Specific Adrian 1.020 Urine Protein 30 H Urine Glucose (UA) >=1000 Urine Ketones Trace H Urine Blood Moderate H Urine Nitrate Negative Urine Bilirubin Small H Urine Urobilinogen 1.0 H Ur Leukocyte Esterase Negative Urine RBC 2 - 5 Urine WBC 0 - 2 Ur Epithelial Cells None Urine Bacteria Large 11/18/17 11/18/17 11/18/17 21:20 21:20 23:25 WBC 24.6 H RBC 4.47 Hgb 13.3 L Hct 39.8 L MCV 89.0 MCH 29.8 MCHC 33.4 RDW 14.4 Plt Count 135 MPV 10.0 Gran % 89.9 H Lymph % (Auto) 4.9 L Walker % (Auto) 5.1 Eos % (Auto) 0.0 L Baso % (Auto) 0.1 Gran # 22.14 H Lymph # (Auto) 1.2 Walker # (Auto) 1.3 H Eos # (Auto) 0.0 Baso # (Auto) 0.03 pCO2 pO2 59 H HCO3 ABG pH ABG Total CO2 ABG O2 Saturation ABG Base Excess ABG Potassium VBG pH 7.43 VBG pCO2 37.0 L VBG HCO3 24.6 VBG Total CO2 25.7 VBG O2 Sat (Calc) 94.5 H VBG Base Excess 0.5 VBG Potassium 3.9 Sodium 131.0 L Chloride 100.0 Glucose 172 H Lactate 1.8 FiO2 21.0 POC Glucose (mg/dL) 220 H Lactic Acid Arterial Blood Potassium Venous Blood Potassium 3.9 Urine Color Urine Appearance Urine pH Ur Specific Adrian Urine Protein Urine Glucose (UA) Urine Ketones Urine Blood Urine Nitrate Urine Bilirubin Urine Urobilinogen Ur Leukocyte Esterase Urine RBC Urine WBC Ur Epithelial Cells Urine Bacteria 11/18/17 23:25 WBC RBC Hgb Hct MCV MCH MCHC RDW Plt Count MPV Gran % Lymph % (Auto) Walker % (Auto) Eos % (Auto) Baso % (Auto) Gran # Lymph # (Auto) Walker # (Auto) Eos # (Auto) Baso # (Auto) pCO2 35 pO2 71.0 L HCO3 20.2 L ABG pH 7.37 ABG Total CO2 21.3 L ABG O2 Saturation 96.7 ABG Base Excess -4.4 L ABG Potassium 4.0 VBG pH VBG pCO2 VBG HCO3 VBG Total CO2 VBG O2 Sat (Calc) VBG Base Excess VBG Potassium Sodium 129.0 L Chloride 99.0 Glucose 248 H Lactate 1.9 FiO2 40.0 POC Glucose (mg/dL) Lactic Acid Arterial Blood Potassium 4.0 Venous Blood Potassium Urine Color Urine Appearance Urine pH Ur Specific Adrian Urine Protein Urine Glucose (UA) Urine Ketones Urine Blood Urine Nitrate Urine Bilirubin Urine Urobilinogen Ur Leukocyte Esterase Urine RBC Urine WBC Ur Epithelial Cells Urine Bacteria - EKG Data EKG Interpreted by: Myself Rate: Tachycardia (RVR AFIB) Assessment & Plan - Assessment and Plan (Free Text) Assessment: 72 y/o with h/o 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 TIME PIECE REPAIRER was called due to episode of hypotention. Patient was found to be in RVR Afib. Patient lactic acid trended down appropriately. Plan: Neuro: awake and alert, appears to be at baseline Pulm: Mild hypoxemic on abg. Will give supplemental oxygen prn to maintain O2 sat above 90s. Chest x-ray with old displaced right sided rib fractures, no infiltration. Head of bed above 35 degrees Cardiac: Hypotention in the setting of rvr afib- Hypotention is likely due to RVR afib versus sepsis. Will give another litter of NS fluid bolus, and reassess the need for Cardizem drip versus amiodorone. Will consider pressor if BP doesn't improve with fluid challenges. [id number] vasc score of 3, patient to need therapeutic anticoagulation if afib persists. will trend trop cardiac echo ordered. ID: Sepsis with wound abscess as the possible source. BCx and ucx are pending will obtain wound culture. continue with merrem and zyvox. ID following, procal ordered. Renal: ROHINI- likely pre-renal, will repeat bmp to see if creat is responding to fluid boluses. Lactic acidosis in the setting of normal ph and pco2, likely due to decreased clearance, lactic acidosis trended down with fluid hydration. Endo: IDDM: continue with insulin sliding scale and achs fingersticks. Heme: Leukocytosis likely due to infection, will trend. h/h stable, will continue to monitor. Gi: ppi for gi prophylaxis. Skin: psoriasis rash superimposed with diffuse blanching errythematous lacy like rash- s/p solumedrol in the ed, on Benadryl prn for pruritus. Podiatry- purulent draining right plantar foot wound- r/o osteomyolitis culture sent, foot x-ray pending read, podiatry consulted. DVT prophylaxis: heparin sc Patient seen, examined and case discussed with Dr Chaves. - Date & Time Date: 11/19/17 Time: 12:35 <Harinder Chaves Q - Last Filed: 11/19/17 05:08> Meds - Medications Medications: Current Medications Acetaminophen (Tylenol 325mg Tab) 975 mg PO ONCE PRN PRN Reason: Fever >100.4 F Last Admin: 11/18/17 16:19 Dose: 975 mg Acetaminophen (Tylenol 325mg Tab) 650 mg PO Q6H PRN PRN Reason: Fever >100.4 F Aspirin (Aspirin Chewable) 81 mg PO DAILY GERRY Diphenhydramine HCl (Benadryl) 25 mg IVP Q6 PRN PRN Reason: Rash Heparin Sodium (Porcine) (Heparin) 5,000 units SC Q8 GERRY PRN Reason: Protocol Meropenem (Merrem Iv 1 Gm Premix) 50 mls @ 100 mls/hr IVPB Q12 GERRY PRN Reason: Protocol Stop: 11/27/17 20:01 Last Admin: 11/19/17 00:23 Dose: Not Given Linezolid (Zyvox 600mg/300ml D5w) 600 mg in 300 mls @ 200 mls/hr IVPB Q12 GERRY PRN Reason: Protocol Stop: 11/27/17 22:01 Last Admin: 11/18/17 21:45 Dose: 200 mls/hr Sodium Chloride (Sodium Chloride 0.45%) 1,000 mls @ 100 mls/hr IV .Q10H GERRY Last Admin: 11/19/17 02:25 Dose: Not Given Sodium Chloride (Sodium Chloride 0.9%) 1,000 mls @ 100 mls/hr IV .Q10H GERRY Last Admin: 11/19/17 02:20 Dose: 100 mls/hr Insulin Human Regular (Humulin R Med) 0 units SC ACHS GERRY PRN Reason: Protocol Last Admin: 11/18/17 21:47 Dose: Not Given Levalbuterol HCl (Xopenex) 0.63 mg IH [id number] [facility] Last Admin: 11/19/17 01:44 Dose: 0.63 mg Levalbuterol HCl (Xopenex) 1.25 mg IH [id number] PRN PRN Reason: Shortness of Breath Pantoprazole Sodium (Protonix Ec Tab) 40 mg PO 0600 [facility] Results - Vital Signs Recent Vital Signs: Last Vital Signs Temp 99.8 F H 11/18/17 21:10 Pulse 88 11/18/17 21:10 Resp 20 11/18/17 21:10 BP 120/70 11/18/17 21:10 Pulse Ox 100 11/18/17 21:10 - Labs Result Diagrams: 11/18/17 21:20 11/19/17 00:20 Labs: Laboratory Results - last 24 hr 11/18/17 11/18/17 11/18/17 19:21 19:35 20:55 WBC RBC Hgb Hct MCV MCH MCHC RDW Plt Count MPV Gran % Lymph % (Auto) Walker % (Auto) Eos % (Auto) Baso % (Auto) Gran # Lymph # (Auto) Walker # (Auto) Eos # (Auto) Baso # (Auto) pCO2 pO2 HCO3 ABG pH ABG Total CO2 ABG O2 Saturation ABG Base Excess ABG Potassium VBG pH VBG pCO2 VBG HCO3 VBG Total CO2 VBG O2 Sat (Calc) VBG Base Excess VBG Potassium Sodium Chloride Glucose Lactate FiO2 Potassium Carbon Dioxide Anion Gap BUN Creatinine Est GFR ( Amer) Est GFR (Non-Af Amer) POC Glucose (mg/dL) 158 H Random Glucose Lactic Acid 1.6 Calcium Troponin I Arterial Blood Potassium Venous Blood Potassium Urine Color Yellow Urine Appearance Sl cloudy Urine pH 6.0 Ur Specific Adrian 1.020 Urine Protein 30 H Urine Glucose (UA) >=1000 Urine Ketones Trace H Urine Blood Moderate H Urine Nitrate Negative Urine Bilirubin Small H Urine Urobilinogen 1.0 H Ur Leukocyte Esterase Negative Urine RBC 2 - 5 Urine WBC 0 - 2 Ur Epithelial Cells None Urine Bacteria Large 11/18/17 11/18/17 11/18/17 21:20 21:20 23:25 WBC 24.6 H RBC 4.47 Hgb 13.3 L Hct 39.8 L MCV 89.0 MCH 29.8 MCHC 33.4 RDW 14.4 Plt Count 135 MPV 10.0 Gran % 89.9 H Lymph % (Auto) 4.9 L Walker % (Auto) 5.1 Eos % (Auto) 0.0 L Baso % (Auto) 0.1 Gran # 22.14 H Lymph # (Auto) 1.2 Walker # (Auto) 1.3 H Eos # (Auto) 0.0 Baso # (Auto) 0.03 pCO2 pO2 59 H HCO3 ABG pH ABG Total CO2 ABG O2 Saturation ABG Base Excess ABG Potassium VBG pH 7.43 VBG pCO2 37.0 L VBG HCO3 24.6 VBG Total CO2 25.7 VBG O2 Sat (Calc) 94.5 H VBG Base Excess 0.5 VBG Potassium 3.9 Sodium 131.0 L Chloride 100.0 Glucose 172 H Lactate 1.8 FiO2 21.0 Potassium Carbon Dioxide Anion Gap BUN Creatinine Est GFR ( Amer) Est GFR (Non-Af Amer) POC Glucose (mg/dL) 220 H Random Glucose Lactic Acid Calcium Troponin I Arterial Blood Potassium Venous Blood Potassium 3.9 Urine Color Urine Appearance Urine pH Ur Specific Adrian Urine Protein Urine Glucose (UA) Urine Ketones Urine Blood Urine Nitrate Urine Bilirubin Urine Urobilinogen Ur Leukocyte Esterase Urine RBC Urine WBC Ur Epithelial Cells Urine Bacteria 11/18/17 11/19/17 23:25 00:20 WBC RBC Hgb Hct MCV MCH MCHC RDW Plt Count MPV Gran % Lymph % (Auto) Walker % (Auto) Eos % (Auto) Baso % (Auto) Gran # Lymph # (Auto) Walker # (Auto) Eos # (Auto) Baso # (Auto) pCO2 35 pO2 71.0 L HCO3 20.2 L ABG pH 7.37 ABG Total CO2 21.3 L ABG O2 Saturation 96.7 ABG Base Excess -4.4 L ABG Potassium 4.0 VBG pH VBG pCO2 VBG HCO3 VBG Total CO2 VBG O2 Sat (Calc) VBG Base Excess VBG Potassium Sodium 129.0 L 130 L Chloride 99.0 99 Glucose 248 H Lactate 1.9 FiO2 40.0 Potassium 4.2 Carbon Dioxide 20 L Anion Gap 16 BUN 45 H Creatinine 2.5 H Est GFR ( Amer) 31 Est GFR (Non-Af Amer) 26 POC Glucose (mg/dL) Random Glucose 228 H Lactic Acid Calcium 9.0 Troponin I 0.45 H* Arterial Blood Potassium 4.0 Venous Blood Potassium Urine Color Urine Appearance Urine pH Ur Specific Adrian Urine Protein Urine Glucose (UA) Urine Ketones Urine Blood Urine Nitrate Urine Bilirubin Urine Urobilinogen Ur Leukocyte Esterase Urine RBC Urine WBC Ur Epithelial Cells Urine Bacteria Attending/Attestation - Attestation I have personally seen and examined this patient.: Yes I have fully participated in the care of the patient.: Yes I have reviewed all pertinent clinical information: Yes Notes (Text): 11/19/17 04:58 I agree with the above mentioned note and exam by the resident with the addition /exception of the followin72 y/o male with a PMHx Htn, DM presented to the ED earlier today with complaints of fatigue and fever. Admitted to the medicine floor after a code sepsis was called on him in the ED. As per nursing staff, patient was not given the entire bolus of IVF in the ED for his code sepsis (unclear why not). House doctor asked for an ICU evaluation as the patient had an TIME PIECE REPAIRER called on him on the medical floor. He was noted to have a low sbp in the 80's and was in Afib rvr at 130-140's. Patient was not continued on IVF hydration and was only treated with a suboptimal IVF bolus prior to my arrival. Severe sepsis transient Afib rvr which has resolved once patient was adequately fluid resuscitated mild hypoxia (p02 in the 70's on 5L nasal cannula) Foot wound with purulent malodorous drainage concerning for osteo (foot xray shows subluxation of the 2nd metatarsal with possible bony erosion) Generalized rash over the entire body (face spared) which has not responded to IV steroids and benadryl. Per nursing staff, his daughter stated the rash began while he was in the ambulance, patient is unable to relay how long it has been present. worsening kidney injury despite IVF resuscitation ?small vessel vasculitis continue with IV Abx all labs and images reviewed personally thus far (CXR appears to show some haziness in the right lung suspicious for an infiltrate; patient reports having rib fractures in that area in the past; awaiting official read) Case discussed with Dr. Li Tellez total time of care: 45 minutes
[2017-11-19 01:16] LABS: TROPONIN I 0.45 ng/mL
[2017-11-19] MEDS: Levalbuterol 0.63 MG/3 ML Inhal Soln UD IH SCH ×4 (01:44→19:27)
[2017-11-19 01:48] VITALS: BMI 36.4
[2017-11-19] MEDS ORDERED: Sodium Chloride 0.45% 1,000 ML IV SCH (01:59)
[2017-11-19] MEDS ORDERED: Sodium Chloride 0.9% 1,000 ML IV SCH (02:30)
[2017-11-19] MEDS: Pantoprazole 40 mg EC Tab PO SCH (05:32)
[2017-11-19 05:48] LABS: ARTERIAL BLOOD GAS HCO3 19.2 mmol/L (21-28); ARTERIAL BLOOD GAS O2 SAT 97.3 % (95-98); ARTERIAL BLOOD GAS PCO2 34 mm/Hg (35-45); ARTERIAL BLOOD GAS PH 7.36 (7.35-7.45); ARTERIAL BLOOD GAS TCO2 20.2 mmol.L (22-28)
[2017-11-19 07:25] LABS: TROPONIN I 0.44 ng/mL
[2017-11-19] MEDS: Insulin Reg-MEDIUM-Coverage SC SCH ×3 (08:27→16:25)
--- NOTE | 2017-11-19 09:23 | CP.PCM.CON ---
History of Present Illness - History of Present Illness History of Present Illness: Consult Note- Dr. 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 Patient is known to Dr. Baron in which patient underwent right partial ray amputation with amputation of hallux on 03/28/18 which fully healed. Patient recently returned from the [place]. Noticed the ulceration 7 days ago. Reports drainage and smelling. Patient reports nothing to eat or drink since last night. Patient reports drinking a little of water with medication. Patient denies N/V/SOB/CP/chills or diarrhea. Past Patient History - Infectious Disease Hx of Infectious Diseases: None - Past Social History Smoking Status: Former Smoker (quit 30 years ago) - CARDIAC Hx Hypertension: Yes - PULMONARY Hx Respiratory Disorders: Yes Other/Comment: 5 broken ribs and scar tissue to R lung - NEUROLOGICAL Hx Neurological Disorder: No - HEENT Hx HEENT Problems: Yes Other/Comment: glasses - RENAL Hx Chronic Kidney Disease: No - ENDOCRINE/METABOLIC Hx Diabetes Mellitus Type 2: Yes - HEMATOLOGICAL/ONCOLOGICAL Hx Blood Transfusions: No - INTEGUMENTARY Hx Psoriasis: Yes - MUSCULOSKELETAL/RHEUMATOLOGICAL Hx Falls: No - GASTROINTESTINAL Hx Gastrointestinal Disorders: No - GENITOURINARY/GYNECOLOGICAL Hx Genitourinary Disorders: No - PSYCHIATRIC Hx Emotional Abuse: No Hx Physical Abuse: No Hx Substance Use: No - SURGICAL HISTORY Hx Orthopedic Surgery: Yes (rt toe amputee) - ANESTHESIA Hx Anesthesia Reactions: No Hx Malignant Hyperthermia: No Meds Allergies/Adverse Reactions: Allergies Allergy/AdvReac Type Severity Reaction Status Date / Time terencewi Allergy RASH Verified 11/18/17 15:42 strawberry AdvReac RASH Verified 11/18/17 15:42 rasberries AdvReac Intermediate RASH Uncoded 03/28/17 10:18 - Medications Medications: Current Medications Acetaminophen (Tylenol 325mg Tab) 975 mg PO ONCE PRN PRN Reason: Fever >100.4 F Last Admin: 11/18/17 16:19 Dose: 975 mg Acetaminophen (Tylenol 325mg Tab) 650 mg PO Q6H PRN PRN Reason: Fever >100.4 F Aspirin (Aspirin Chewable) 81 mg PO DAILY GERRY Diphenhydramine HCl (Benadryl) 25 mg IVP Q6 PRN PRN Reason: Rash Heparin Sodium (Porcine) (Heparin) 5,000 units SC Q8 GERRY PRN Reason: Protocol Last Admin: 11/19/17 05:32 Dose: 5,000 units Meropenem (Merrem Iv 1 Gm Premix) 50 mls @ 100 mls/hr IVPB Q12 GERRY PRN Reason: Protocol Stop: 11/27/17 20:01 Last Admin: 11/19/17 00:23 Dose: Not Given Linezolid (Zyvox 600mg/300ml D5w) 600 mg in 300 mls @ 200 mls/hr IVPB Q12 GERRY PRN Reason: Protocol Stop: 11/27/17 22:01 Last Admin: 11/18/17 21:45 Dose: 200 mls/hr Sodium Chloride (Sodium Chloride 0.45%) 1,000 mls @ 100 mls/hr IV .Q10H [facility] Last Admin: 11/19/17 02:25 Dose: Not Given Sodium Chloride (Sodium Chloride 0.9%) 1,000 mls @ 100 mls/hr IV .Q10H [facility] Last Admin: 11/19/17 02:20 Dose: 100 mls/hr Insulin Human Regular (Humulin R Med) 0 units SC ACHS GERRY PRN Reason: Protocol Last Admin: 11/19/17 08:27 Dose: Not Given Levalbuterol HCl (Xopenex) 0.63 mg IH [id number] [facility] Last Admin: 11/19/17 08:04 Dose: 0.63 mg Levalbuterol HCl (Xopenex) 1.25 mg IH [id number] PRN PRN Reason: Shortness of Breath Metoprolol Tartrate (Lopressor) 25 mg PO BID [facility] Pantoprazole Sodium (Protonix Ec Tab) 40 mg PO 0600 [facility] Last Admin: 11/19/17 05:32 Dose: 40 mg Physical Exam - Constitutional Appears: Well, Non-toxic, No Acute Distress - Extremities Exam Extremities exam: Negative for: calf tenderness Additional comments: Vasc: DP and PT non-palpable, temperature gradient is WNL, CFT < 3 seconds to all digits, moderate edema noted to the right forefoot Ortho: no pain with palpation to ulceration site, right healed partial ray amputation Neuro: gross and protective sensation diminished Derm: ulceration at right sub met 2 measuring approximately 2 x 2 x .3 cm. Periwound is erythematous. Periwound intact and macerated. Malodor, more than 5 cc of purulence drainage expressed at bedside, ulceration probes deep, tunneling and undermining noted. - Psychiatric Exam Psychiatric exam: Normal Affect, Normal Mood Results - Vital Signs Recent Vital Signs: Last Vital Signs Temp 97.9 F 11/19/17 08:17 Pulse 71 11/19/17 08:16 Resp 23 11/19/17 08:00 BP 116/63 11/19/17 08:00 Pulse Ox 95 11/19/17 08:00 - Labs Result Diagrams: 11/18/17 21:20 11/19/17 00:20 Labs: Laboratory Results - last 24 hr 11/18/17 11/18/17 11/18/17 19:21 19:35 20:55 WBC RBC Hgb Hct MCV MCH MCHC RDW Plt Count MPV Gran % Lymph % (Auto) [place] % (Auto) Eos % (Auto) Baso % (Auto) Gran # Lymph # (Auto) [place] # (Auto) Eos # (Auto) Baso # (Auto) pCO2 pO2 HCO3 ABG pH ABG Total CO2 ABG O2 Saturation ABG Base Excess ABG Potassium VBG pH VBG pCO2 VBG HCO3 VBG Total CO2 VBG O2 Sat (Calc) VBG Base Excess VBG Potassium Sodium Chloride Glucose Lactate FiO2 Potassium Carbon Dioxide Anion Gap BUN Creatinine Est GFR ( Amer) Est GFR (Non-Af Amer) POC Glucose (mg/dL) 158 H Random Glucose Lactic Acid 1.6 Calcium Troponin I Triglycerides Cholesterol LDL Cholesterol Direct HDL Cholesterol Arterial Blood Potassium Venous Blood Potassium Urine Color Yellow Urine Appearance Sl cloudy Urine pH 6.0 Ur Specific [place] 1.020 Urine Protein 30 H Urine Glucose (UA) >=1000 Urine Ketones Trace H Urine Blood Moderate H Urine Nitrate Negative Urine Bilirubin Small H Urine Urobilinogen 1.0 H Ur Leukocyte Esterase Negative Urine RBC 2 - 5 Urine WBC 0 - 2 Ur Epithelial Cells None Urine Bacteria Large Influenza Typ A,B (EIA) 11/18/17 11/18/17 11/18/17 21:20 21:20 23:25 WBC 24.6 H RBC 4.47 Hgb 13.3 L Hct 39.8 L MCV 89.0 MCH 29.8 MCHC 33.4 RDW 14.4 Plt Count 135 MPV 10.0 Gran % 89.9 H Lymph % (Auto) 4.9 L [place] % (Auto) 5.1 Eos % (Auto) 0.0 L Baso % (Auto) 0.1 Gran # 22.14 H Lymph # (Auto) 1.2 [place] # (Auto) 1.3 H Eos # (Auto) 0.0 Baso # (Auto) 0.03 pCO2 pO2 59 H HCO3 ABG pH ABG Total CO2 ABG O2 Saturation ABG Base Excess ABG Potassium VBG pH 7.43 VBG pCO2 37.0 L VBG HCO3 24.6 VBG Total CO2 25.7 VBG O2 Sat (Calc) 94.5 H VBG Base Excess 0.5 VBG Potassium 3.9 Sodium 131.0 L Chloride 100.0 Glucose 172 H Lactate 1.8 FiO2 21.0 Potassium Carbon Dioxide Anion Gap BUN Creatinine Est GFR ( Amer) Est GFR (Non-Af Amer) POC Glucose (mg/dL) 220 H Random Glucose Lactic Acid Calcium Troponin I Triglycerides Cholesterol LDL Cholesterol Direct HDL Cholesterol Arterial Blood Potassium Venous Blood Potassium 3.9 Urine Color Urine Appearance Urine pH Ur Specific [place] Urine Protein Urine Glucose (UA) Urine Ketones Urine Blood Urine Nitrate Urine Bilirubin Urine Urobilinogen Ur Leukocyte Esterase Urine RBC Urine WBC Ur Epithelial Cells Urine Bacteria Influenza Typ A,B (EIA) 11/18/17 11/19/17 11/19/17 23:25 00:20 05:16 WBC RBC Hgb Hct MCV MCH MCHC RDW Plt Count MPV Gran % Lymph % (Auto) [place] % (Auto) Eos % (Auto) Baso % (Auto) Gran # Lymph # (Auto) [place] # (Auto) Eos # (Auto) Baso # (Auto) pCO2 35 pO2 71.0 L HCO3 20.2 L ABG pH 7.37 ABG Total CO2 21.3 L ABG O2 Saturation 96.7 ABG Base Excess -4.4 L ABG Potassium 4.0 VBG pH VBG pCO2 VBG HCO3 VBG Total CO2 VBG O2 Sat (Calc) VBG Base Excess VBG Potassium Sodium 129.0 L 130 L Chloride 99.0 99 Glucose 248 H Lactate 1.9 FiO2 40.0 Potassium 4.2 Carbon Dioxide 20 L Anion Gap 16 BUN 45 H Creatinine 2.5 H Est GFR ( Amer) 31 Est GFR (Non-Af Amer) 26 POC Glucose (mg/dL) Random Glucose 228 H Lactic Acid Calcium 9.0 Troponin I 0.45 H* 0.44 H* Triglycerides 140 Cholesterol 113 L LDL Cholesterol Direct 33 HDL Cholesterol 21 L Arterial Blood Potassium 4.0 Venous Blood Potassium Urine Color Urine Appearance Urine pH Ur Specific [place] Urine Protein Urine Glucose (UA) Urine Ketones Urine Blood Urine Nitrate Urine Bilirubin Urine Urobilinogen Ur Leukocyte Esterase Urine RBC Urine WBC Ur Epithelial Cells Urine Bacteria Influenza Typ A,B (EIA) 11/19/17 11/19/17 11/19/17 05:30 07:40 08:26 WBC RBC Hgb Hct MCV MCH MCHC RDW Plt Count MPV Gran % Lymph % (Auto) [place] % (Auto) Eos % (Auto) Baso % (Auto) Gran # Lymph # (Auto) [place] # (Auto) Eos # (Auto) Baso # (Auto) pCO2 34 L pO2 75.0 L HCO3 19.2 L ABG pH 7.36 ABG Total CO2 20.2 L ABG O2 Saturation 97.3 ABG Base Excess -5.4 L ABG Potassium 3.9 VBG pH VBG pCO2 VBG HCO3 VBG Total CO2 VBG O2 Sat (Calc) VBG Base Excess VBG Potassium Sodium 132.0 Chloride 101.0 Glucose 254 H Lactate 1.7 FiO2 40.0 Potassium Carbon Dioxide Anion Gap BUN Creatinine Est GFR ( Amer) Est GFR (Non-Af Amer) POC Glucose (mg/dL) 209 H Random Glucose Lactic Acid Calcium Troponin I Triglycerides Cholesterol LDL Cholesterol Direct HDL Cholesterol Arterial Blood Potassium 3.9 Venous Blood Potassium Urine Color Urine Appearance Urine pH Ur Specific [place] Urine Protein Urine Glucose (UA) Urine Ketones Urine Blood Urine Nitrate Urine Bilirubin Urine Urobilinogen Ur Leukocyte Esterase Urine RBC Urine WBC Ur Epithelial Cells Urine Bacteria Influenza Typ A,B (EIA) Pos for influenza a H Assessment & Plan - Assessment and Plan (Free Text) Assessment: 72 y.o male with PMH of DM, HTN, dyslipidemia, psoriasis, hx of wounds, and 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 Dworkin -Patient requires surgical intervention incision and drainage of right foot abscess -Infected ulceration with abscess most likely cause of patient's sepsis -Pt to go to the OR today for incision and drainage of right foot abscess at 12 :15pm pending cardiac and medical clearance -Will take wound culture in the OR -NPO status ordered- patient to not eat or drink anything -c/w IV abx -f/u wound culture -f/u HbA1c, ESR, procalcitonin -ordered duplex, pending results -Thank you for allowing us to take part of patient's care, will continue to follow
[2017-11-19] MEDS ORDERED: DAPTOmycin 500 mg Inj (Cubicin) IV SCH (09:30)
--- NOTE | 2017-11-19 09:39 | RAD ---
PROCEDURE: CHEST RADIOGRAPH, 1 VIEW HISTORY: Sepsis Patient COMPARISON: 03/19/2017 FINDINGS: LUNGS: Clear. PLEURA: No pneumothorax or pleural fluid seen. CARDIOVASCULAR: Normal. OSSEOUS STRUCTURES: Old fractures are seen on the right side VISUALIZED UPPER ABDOMEN: Normal. OTHER FINDINGS: None. IMPRESSION: No active disease.
--- NOTE | 2017-11-19 09:45 | RAD ---
PROCEDURE: Right foot three views HISTORY: osteo COMPARISON: 03/28/2017 TECHNIQUE: Three views FINDINGS: There has been a previous amputation of the big toe. There is a fracture of the base of the 2nd proximal phalanx with a displaced fragment. There is also dislocation of the 2nd MTP joint. The 3rd proximal phalanx has an irregular appearance of the articular surface proximally. There is also an area of lucency. This could represent osteomyelitis. The fracture of the 2nd proximal phalanx could also be secondary to osteomyelitis IMPRESSION: As above
[2017-11-19] MEDS: Sodium Chloride 0.9% 1,000 ML IV SCH ×2 (10:01→21:18)
--- NOTE | 2017-11-19 10:04 | CP.CCUPN ---
<Rafael Grewal - Last Filed: 11/19/17 10:19> CCU Subjective - Physician Review Subjective (Free Text): Patient seen and evaluated bedside, no acute issues since admission. Patient states he is feeling well. Denies any shortness of breath, chest pain, fever, chills, cough, or any other complaints at this time. 11/19/17 10:04 Critical Care Time Spent (in minutes): 30 CCU Objective - Vital Signs / Intake & Output Vital Signs (Last 4 hours): Vital Signs Temp Pulse Resp BP Pulse Ox 11/19/17 08:17 97.9 F 11/19/17 08:16 71 11/19/17 08:00 71 23 116/63 95 11/19/17 07:30 72 16 111/67 94 L 11/19/17 07:00 70 18 104/59 L 95 11/19/17 06:30 72 17 100/58 L 94 L Intake and Output (Last 8hrs): Intake & Output 11/18/17 11/19/17 11/19/17 22:59 06:59 14:59 Weight 269 lb - Physical Exam Head: Positive for: Atraumatic, Normocephalic Pupils: Positive for: PERRL Extroacular Muscles: Positive for: EOMI Conjunctiva: Positive for: Normal Ears: Positive for: NORMAL TM, Normal Canal. Negative for: Erythema Mouth: Positive for: Moist Mucous Membranes Pharnyx: Negative for: ERYTHEMA, EXUDATE, TONSILS ENLARGED Neck: Positive for: Normal Range of Motion Respiratory/Chest: Positive for: Clear to Auscultation, Good Air Exchange. Negative for: Respiratory Distress, Accessory Muscle Use Cardiovascular: Positive for: Regular Rate and Rhythm, Normal S1, S2. Negative for: Murmurs Abdomen: Positive for: Normal Bowel Sounds. Negative for: Tenderness, Distention, Peritoneal Signs, Rebound, Guarding Back: Positive for: Normal Inspection Upper Extremity: Positive for: Normal Inspection. Negative for: Cyanosis, Edema Lower Extremity: Positive for: Other (Right plantar foot 1 cm ulcer with foul smelling purulent drainage. Great toe amputation. The dorsal surface of the foot is erythematous tender swollen and warm also). Negative for: Normal Inspection, Edema Neurological: Positive for: GCS=15, CN II-XII Intact, Speech Normal Skin: Positive for: Rashes (diffuse psoriatic rash, diffuse raised urticarial rash), Other (Plantar surface of right foot contains a 1cm ulcer that is draining with a foul smell, purulent material, tenderness, and warmth. The right great toe was amputated in summer.) Psychiatric: Positive for: Alert, Oriented x 3, Normal Insight, Normal Concentration - Medications Active Medications: Active Medications Generic Name Dose Route Start Last Admin Trade Name Freq PRN Reason Stop Dose Admin Acetaminophen 650 mg 11/18/17 20:49 Tylenol 325mg Tab PO Q6H PRN Fever >100.4 F Aspirin 81 mg 11/19/17 10:00 Aspirin Chewable PO DAILY GERRY Diphenhydramine HCl 25 mg 11/18/17 20:49 Benadryl IVP Q6 PRN Rash Meropenem 50 mls @ 100 mls/hr 11/18/17 20:00 11/19/17 00:23 Merrem Iv 1 Gm Premix IVPB 11/27/17 20:01 Not Given Q12 GERRY Protocol Sodium Chloride 1,000 mls @ 100 mls/hr 11/19/17 01:59 11/19/17 02:25 Sodium Chloride 0.45% IV Not Given .Q10H GERRY Daptomycin 730 mg/ Sodium 100 mls @ 200 mls/hr 11/19/17 10:00 Chloride IV 11/24/17 10:01 QOD GERRY Sodium Chloride 1,000 mls @ 125 mls/hr 11/19/17 09:45 Sodium Chloride 0.9% IV .Q8H GERRY Insulin Human Regular 0 units 11/18/17 22:00 11/19/17 08:27 Humulin R Med SC Not Given ACHS GERRY Protocol Levalbuterol HCl 0.63 mg 11/19/17 02:00 11/19/17 08:04 Xopenex IH 0.63 mg [id number] GERRY Administration Levalbuterol HCl 1.25 mg 11/19/17 00:08 Xopenex IH [id number] PRN Shortness of Breath Metoprolol Tartrate 25 mg 11/19/17 10:00 Lopressor PO BID GERRY Oseltamivir Phosphate 30 mg 11/19/17 10:00 Tamiflu PO DAILY GERRY Protocol Pantoprazole Sodium 40 mg 11/19/17 06:00 11/19/17 05:32 Protonix Ec Tab PO 40 mg 0600 GERRY Administration - Patient Studies Lab Studies: Lab Studies 11/19/17 11/19/17 11/19/17 Range/Units 08:26 07:40 05:30 WBC (4.5-11.0) 10^3/ul RBC (3.5-6.1) 10^6/uL Hgb (14.0-18.0) g/dL Hct (42.0-52.0) % MCV (80.0-105.0) fl MCH (25.0-35.0) pg MCHC (31.0-37.0) g/dl RDW (11.5-14.5) % Plt Count (120.0-450.0) 10^3/uL MPV (7.0-11.0) fl Gran % (50.0-68.0) % Lymph % (Auto) (22.0-35.0) % [place] % (Auto) (1.0-6.0) % Eos % (Auto) (1.5-5.0) % Baso % (Auto) (0.0-3.0) % Gran # (1.4-6.5) Lymph # (Auto) (1.2-3.4) [place] # (Auto) (0.1-0.6) Eos # (Auto) (0.0-0.7) Baso # (Auto) (0.0-2.0) K/mm3 pCO2 34 L (35-45) mm/Hg pO2 75.0 L (30-55) mm/Hg HCO3 19.2 L (21-28) mmol/L ABG pH 7.36 (7.35-7.45) ABG Total CO2 20.2 L (22-28) mmol.L ABG O2 Saturation 97.3 (95-98) % ABG Base Excess -5.4 L (-2.0-3.0) mmol/L ABG Potassium 3.9 (3.6-5.2) mmol/L VBG pH (7.32-7.43) VBG pCO2 (40-60) VBG HCO3 (21-28) mmol/l VBG Total CO2 (22-28) mmol.L VBG O2 Sat (Calc) (40-65) % VBG Base Excess (0.0-2.0) mmol/L VBG Potassium (3.6-5.2) mmol/L Sodium 132.0 (132-148) mmol/L Chloride 101.0 (98-107) mmol/L Glucose 254 H (75-110) mg/dl Lactate 1.7 (0.7-2.1) mmol/L FiO2 40.0 % Potassium (3.6-5.0) mmol/L Carbon Dioxide (21-33) mmol/L Anion Gap (10-20) BUN (7-21) mg/dL Creatinine (0.8-1.5) mg/dl Est GFR ( Amer) Est GFR (Non-Af Amer) POC Glucose (mg/dL) 209 H (65-110) mg/dL Random Glucose (70-110) mg/dL Lactic Acid (0.7-2.1) mmol/L Calcium (8.4-10.5) mg/dL Troponin I ng/mL Triglycerides (35-160) mg/dL Cholesterol (130-200) mg/dL LDL Cholesterol Direct (0-129) mg/dL HDL Cholesterol (29-60) mg/dL Arterial Blood Potassium 3.9 (3.6-5.2) mmol/L Venous Blood Potassium (3.6-5.2) mmol/L Urine Color (YELLOW) Urine Appearance (CLEAR) Urine pH (4.7-8.0) Ur Specific [place] (1.005-1.035) Urine Protein (<30 mg/dL) mg/dL Urine Glucose (UA) (NEGATIVE) mg/dL Urine Ketones (NEGATIVE) mg/dL Urine Blood (NEGATIVE) Urine Nitrate (NEGATIVE) Urine Bilirubin (NEGATIVE) Urine Urobilinogen (<1 E.U./dL) E.U./dL Ur Leukocyte Esterase (NEGATIVE) Karolina/uL Urine RBC (0-2) /hpf Urine WBC (0-6) /hpf Ur Epithelial Cells (0-5) /hpf Urine Bacteria (NEG) Influenza Typ A,B (EIA) Pos for influenza a H (NEGATIVE) 11/19/17 11/19/17 11/18/17 Range/Units 05:16 00:20 23:25 WBC (4.5-11.0) 10^3/ul RBC (3.5-6.1) 10^6/uL Hgb (14.0-18.0) g/dL Hct (42.0-52.0) % MCV (80.0-105.0) fl MCH (25.0-35.0) pg MCHC (31.0-37.0) g/dl RDW (11.5-14.5) % Plt Count (120.0-450.0) 10^3/uL MPV (7.0-11.0) fl Gran % (50.0-68.0) % Lymph % (Auto) (22.0-35.0) % [place] % (Auto) (1.0-6.0) % Eos % (Auto) (1.5-5.0) % Baso % (Auto) (0.0-3.0) % Gran # (1.4-6.5) Lymph # (Auto) (1.2-3.4) [place] # (Auto) (0.1-0.6) Eos # (Auto) (0.0-0.7) Baso # (Auto) (0.0-2.0) K/mm3 pCO2 35 (35-45) mm/Hg pO2 71.0 L (30-55) mm/Hg HCO3 20.2 L (21-28) mmol/L ABG pH 7.37 (7.35-7.45) ABG Total CO2 21.3 L (22-28) mmol.L ABG O2 Saturation 96.7 (95-98) % ABG Base Excess -4.4 L (-2.0-3.0) mmol/L ABG Potassium 4.0 (3.6-5.2) mmol/L VBG pH (7.32-7.43) VBG pCO2 (40-60) VBG HCO3 (21-28) mmol/l VBG Total CO2 (22-28) mmol.L VBG O2 Sat (Calc) (40-65) % VBG Base Excess (0.0-2.0) mmol/L VBG Potassium (3.6-5.2) mmol/L Sodium 130 L 129.0 L (132-148) mmol/L Chloride 99 99.0 (98-107) mmol/L Glucose 248 H (75-110) mg/dl Lactate 1.9 (0.7-2.1) mmol/L FiO2 40.0 % Potassium 4.2 (3.6-5.0) mmol/L Carbon Dioxide 20 L (21-33) mmol/L Anion Gap 16 (10-20) BUN 45 H (7-21) mg/dL Creatinine 2.5 H (0.8-1.5) mg/dl Est GFR ( Amer) 31 Est GFR (Non-Af Amer) 26 POC Glucose (mg/dL) (65-110) mg/dL Random Glucose 228 H (70-110) mg/dL Lactic Acid (0.7-2.1) mmol/L Calcium 9.0 (8.4-10.5) mg/dL Troponin I 0.44 H* 0.45 H* ng/mL Triglycerides 140 (35-160) mg/dL Cholesterol 113 L (130-200) mg/dL LDL Cholesterol Direct 33 (0-129) mg/dL HDL Cholesterol 21 L (29-60) mg/dL Arterial Blood Potassium 4.0 (3.6-5.2) mmol/L Venous Blood Potassium (3.6-5.2) mmol/L Urine Color (YELLOW) Urine Appearance (CLEAR) Urine pH (4.7-8.0) Ur Specific [place] (1.005-1.035) Urine Protein (<30 mg/dL) mg/dL Urine Glucose (UA) (NEGATIVE) mg/dL Urine Ketones (NEGATIVE) mg/dL Urine Blood (NEGATIVE) Urine Nitrate (NEGATIVE) Urine Bilirubin (NEGATIVE) Urine Urobilinogen (<1 E.U./dL) E.U./dL Ur Leukocyte Esterase (NEGATIVE) Karolina/uL Urine RBC (0-2) /hpf Urine WBC (0-6) /hpf Ur Epithelial Cells (0-5) /hpf Urine Bacteria (NEG) Influenza Typ A,B (EIA) (NEGATIVE) 11/18/17 11/18/17 11/18/17 Range/Units 23:25 21:20 21:20 WBC 24.6 H (4.5-11.0) 10^3/ul RBC 4.47 (3.5-6.1) 10^6/uL Hgb 13.3 L (14.0-18.0) g/dL Hct 39.8 L (42.0-52.0) % MCV 89.0 (80.0-105.0) fl MCH 29.8 (25.0-35.0) pg MCHC 33.4 (31.0-37.0) g/dl RDW 14.4 (11.5-14.5) % Plt Count 135 (120.0-450.0) 10^3/uL MPV 10.0 (7.0-11.0) fl Gran % 89.9 H (50.0-68.0) % Lymph % (Auto) 4.9 L (22.0-35.0) % [place] % (Auto) 5.1 (1.0-6.0) % Eos % (Auto) 0.0 L (1.5-5.0) % Baso % (Auto) 0.1 (0.0-3.0) % Gran # 22.14 H (1.4-6.5) Lymph # (Auto) 1.2 (1.2-3.4) [place] # (Auto) 1.3 H (0.1-0.6) Eos # (Auto) 0.0 (0.0-0.7) Baso # (Auto) 0.03 (0.0-2.0) K/mm3 pCO2 (35-45) mm/Hg pO2 59 H (30-55) mm/Hg HCO3 (21-28) mmol/L ABG pH (7.35-7.45) ABG Total CO2 (22-28) mmol.L ABG O2 Saturation (95-98) % ABG Base Excess (-2.0-3.0) mmol/L ABG Potassium (3.6-5.2) mmol/L VBG pH 7.43 (7.32-7.43) VBG pCO2 37.0 L (40-60) VBG HCO3 24.6 (21-28) mmol/l VBG Total CO2 25.7 (22-28) mmol.L VBG O2 Sat (Calc) 94.5 H (40-65) % VBG Base Excess 0.5 (0.0-2.0) mmol/L VBG Potassium 3.9 (3.6-5.2) mmol/L Sodium 131.0 L (132-148) mmol/L Chloride 100.0 (98-107) mmol/L Glucose 172 H (75-110) mg/dl Lactate 1.8 (0.7-2.1) mmol/L FiO2 21.0 % Potassium (3.6-5.0) mmol/L Carbon Dioxide (21-33) mmol/L Anion Gap (10-20) BUN (7-21) mg/dL Creatinine (0.8-1.5) mg/dl Est GFR ( Amer) Est GFR (Non-Af Amer) POC Glucose (mg/dL) 220 H (65-110) mg/dL Random Glucose (70-110) mg/dL Lactic Acid (0.7-2.1) mmol/L Calcium (8.4-10.5) mg/dL Troponin I ng/mL Triglycerides (35-160) mg/dL Cholesterol (130-200) mg/dL LDL Cholesterol Direct (0-129) mg/dL HDL Cholesterol (29-60) mg/dL Arterial Blood Potassium (3.6-5.2) mmol/L Venous Blood Potassium 3.9 (3.6-5.2) mmol/L Urine Color (YELLOW) Urine Appearance (CLEAR) Urine pH (4.7-8.0) Ur Specific [place] (1.005-1.035) Urine Protein (<30 mg/dL) mg/dL Urine Glucose (UA) (NEGATIVE) mg/dL Urine Ketones (NEGATIVE) mg/dL Urine Blood (NEGATIVE) Urine Nitrate (NEGATIVE) Urine Bilirubin (NEGATIVE) Urine Urobilinogen (<1 E.U./dL) E.U./dL Ur Leukocyte Esterase (NEGATIVE) Karolina/uL Urine RBC (0-2) /hpf Urine WBC (0-6) /hpf Ur Epithelial Cells (0-5) /hpf Urine Bacteria (NEG) Influenza Typ A,B (EIA) (NEGATIVE) 11/18/17 11/18/17 11/18/17 Range/Units 20:55 19:35 19:21 WBC (4.5-11.0) 10^3/ul RBC (3.5-6.1) 10^6/uL Hgb (14.0-18.0) g/dL Hct (42.0-52.0) % MCV (80.0-105.0) fl MCH (25.0-35.0) pg MCHC (31.0-37.0) g/dl RDW (11.5-14.5) % Plt Count (120.0-450.0) 10^3/uL MPV (7.0-11.0) fl Gran % (50.0-68.0) % Lymph % (Auto) (22.0-35.0) % [place] % (Auto) (1.0-6.0) % Eos % (Auto) (1.5-5.0) % Baso % (Auto) (0.0-3.0) % Gran # (1.4-6.5) Lymph # (Auto) (1.2-3.4) [place] # (Auto) (0.1-0.6) Eos # (Auto) (0.0-0.7) Baso # (Auto) (0.0-2.0) K/mm3 pCO2 (35-45) mm/Hg pO2 (30-55) mm/Hg HCO3 (21-28) mmol/L ABG pH (7.35-7.45) ABG Total CO2 (22-28) mmol.L ABG O2 Saturation (95-98) % ABG Base Excess (-2.0-3.0) mmol/L ABG Potassium (3.6-5.2) mmol/L VBG pH (7.32-7.43) VBG pCO2 (40-60) VBG HCO3 (21-28) mmol/l VBG Total CO2 (22-28) mmol.L VBG O2 Sat (Calc) (40-65) % VBG Base Excess (0.0-2.0) mmol/L VBG Potassium (3.6-5.2) mmol/L Sodium (132-148) mmol/L Chloride (98-107) mmol/L Glucose (75-110) mg/dl Lactate (0.7-2.1) mmol/L FiO2 % Potassium (3.6-5.0) mmol/L Carbon Dioxide (21-33) mmol/L Anion Gap (10-20) BUN (7-21) mg/dL Creatinine (0.8-1.5) mg/dl Est GFR ( Amer) Est GFR (Non-Af Amer) POC Glucose (mg/dL) 158 H (65-110) mg/dL Random Glucose (70-110) mg/dL Lactic Acid 1.6 (0.7-2.1) mmol/L Calcium (8.4-10.5) mg/dL Troponin I ng/mL Triglycerides (35-160) mg/dL Cholesterol (130-200) mg/dL LDL Cholesterol Direct (0-129) mg/dL HDL Cholesterol (29-60) mg/dL Arterial Blood Potassium (3.6-5.2) mmol/L Venous Blood Potassium (3.6-5.2) mmol/L Urine Color Yellow (YELLOW) Urine Appearance Sl cloudy (CLEAR) Urine pH 6.0 (4.7-8.0) Ur Specific [place] 1.020 (1.005-1.035) Urine Protein 30 H (<30 mg/dL) mg/dL Urine Glucose (UA) >=1000 (NEGATIVE) mg/dL Urine Ketones Trace H (NEGATIVE) mg/dL Urine Blood Moderate H (NEGATIVE) Urine Nitrate Negative (NEGATIVE) Urine Bilirubin Small H (NEGATIVE) Urine Urobilinogen 1.0 H (<1 E.U./dL) E.U./dL Ur Leukocyte Esterase Negative (NEGATIVE) Karolina/uL Urine RBC 2 - 5 (0-2) /hpf Urine WBC 0 - 2 (0-6) /hpf Ur Epithelial Cells None (0-5) /hpf Urine Bacteria Large (NEG) Influenza Typ A,B (EIA) (NEGATIVE) Laboratory Results - last 24 hr 11/18/17 11/18/17 11/18/17 19:21 19:35 20:55 WBC RBC Hgb Hct MCV MCH MCHC RDW Plt Count MPV Gran % Lymph % (Auto) [place] % (Auto) Eos % (Auto) Baso % (Auto) Gran # Lymph # (Auto) [place] # (Auto) Eos # (Auto) Baso # (Auto) pCO2 pO2 HCO3 ABG pH ABG Total CO2 ABG O2 Saturation ABG Base Excess ABG Potassium VBG pH VBG pCO2 VBG HCO3 VBG Total CO2 VBG O2 Sat (Calc) VBG Base Excess VBG Potassium Sodium Chloride Glucose Lactate FiO2 Potassium Carbon Dioxide Anion Gap BUN Creatinine Est GFR ( Amer) Est GFR (Non-Af Amer) POC Glucose (mg/dL) 158 H Random Glucose Lactic Acid 1.6 Calcium Troponin I Triglycerides Cholesterol LDL Cholesterol Direct HDL Cholesterol Arterial Blood Potassium Venous Blood Potassium Urine Color Yellow Urine Appearance Sl cloudy Urine pH 6.0 Ur Specific [place] 1.020 Urine Protein 30 H Urine Glucose (UA) >=1000 Urine Ketones Trace H Urine Blood Moderate H Urine Nitrate Negative Urine Bilirubin Small H Urine Urobilinogen 1.0 H Ur Leukocyte Esterase Negative Urine RBC 2 - 5 Urine WBC 0 - 2 Ur Epithelial Cells None Urine Bacteria Large Influenza Typ A,B (EIA) 11/18/17 11/18/17 11/18/17 21:20 21:20 23:25 WBC 24.6 H RBC 4.47 Hgb 13.3 L Hct 39.8 L MCV 89.0 MCH 29.8 MCHC 33.4 RDW 14.4 Plt Count 135 MPV 10.0 Gran % 89.9 H Lymph % (Auto) 4.9 L [place] % (Auto) 5.1 Eos % (Auto) 0.0 L Baso % (Auto) 0.1 Gran # 22.14 H Lymph # (Auto) 1.2 [place] # (Auto) 1.3 H Eos # (Auto) 0.0 Baso # (Auto) 0.03 pCO2 pO2 59 H HCO3 ABG pH ABG Total CO2 ABG O2 Saturation ABG Base Excess ABG Potassium VBG pH 7.43 VBG pCO2 37.0 L VBG HCO3 24.6 VBG Total CO2 25.7 VBG O2 Sat (Calc) 94.5 H VBG Base Excess 0.5 VBG Potassium 3.9 Sodium 131.0 L Chloride 100.0 Glucose 172 H Lactate 1.8 FiO2 21.0 Potassium Carbon Dioxide Anion Gap BUN Creatinine Est GFR ( Amer) Est GFR (Non-Af Amer) POC Glucose (mg/dL) 220 H Random Glucose Lactic Acid Calcium Troponin I Triglycerides Cholesterol LDL Cholesterol Direct HDL Cholesterol Arterial Blood Potassium Venous Blood Potassium 3.9 Urine Color Urine Appearance Urine pH Ur Specific [place] Urine Protein Urine Glucose (UA) Urine Ketones Urine Blood Urine Nitrate Urine Bilirubin Urine Urobilinogen Ur Leukocyte Esterase Urine RBC Urine WBC Ur Epithelial Cells Urine Bacteria Influenza Typ A,B (EIA) 11/18/17 11/19/17 11/19/17 23:25 00:20 05:16 WBC RBC Hgb Hct MCV MCH MCHC RDW Plt Count MPV Gran % Lymph % (Auto) [place] % (Auto) Eos % (Auto) Baso % (Auto) Gran # Lymph # (Auto) [place] # (Auto) Eos # (Auto) Baso # (Auto) pCO2 35 pO2 71.0 L HCO3 20.2 L ABG pH 7.37 ABG Total CO2 21.3 L ABG O2 Saturation 96.7 ABG Base Excess -4.4 L ABG Potassium 4.0 VBG pH VBG pCO2 VBG HCO3 VBG Total CO2 VBG O2 Sat (Calc) VBG Base Excess VBG Potassium Sodium 129.0 L 130 L Chloride 99.0 99 Glucose 248 H Lactate 1.9 FiO2 40.0 Potassium 4.2 Carbon Dioxide 20 L Anion Gap 16 BUN 45 H Creatinine 2.5 H Est GFR ( Amer) 31 Est GFR (Non-Af Amer) 26 POC Glucose (mg/dL) Random Glucose 228 H Lactic Acid Calcium 9.0 Troponin I 0.45 H* 0.44 H* Triglycerides 140 Cholesterol 113 L LDL Cholesterol Direct 33 HDL Cholesterol 21 L Arterial Blood Potassium 4.0 Venous Blood Potassium Urine Color Urine Appearance Urine pH Ur Specific [place] Urine Protein Urine Glucose (UA) Urine Ketones Urine Blood Urine Nitrate Urine Bilirubin Urine Urobilinogen Ur Leukocyte Esterase Urine RBC Urine WBC Ur Epithelial Cells Urine Bacteria Influenza Typ A,B (EIA) 11/19/17 11/19/17 11/19/17 05:30 07:40 08:26 WBC RBC Hgb Hct MCV MCH MCHC RDW Plt Count MPV Gran % Lymph % (Auto) [place] % (Auto) Eos % (Auto) Baso % (Auto) Gran # Lymph # (Auto) [place] # (Auto) Eos # (Auto) Baso # (Auto) pCO2 34 L pO2 75.0 L HCO3 19.2 L ABG pH 7.36 ABG Total CO2 20.2 L ABG O2 Saturation 97.3 ABG Base Excess -5.4 L ABG Potassium 3.9 VBG pH VBG pCO2 VBG HCO3 VBG Total CO2 VBG O2 Sat (Calc) VBG Base Excess VBG Potassium Sodium 132.0 Chloride 101.0 Glucose 254 H Lactate 1.7 FiO2 40.0 Potassium Carbon Dioxide Anion Gap BUN Creatinine Est GFR ( Amer) Est GFR (Non-Af Amer) POC Glucose (mg/dL) 209 H Random Glucose Lactic Acid Calcium Troponin I Triglycerides Cholesterol LDL Cholesterol Direct HDL Cholesterol Arterial Blood Potassium 3.9 Venous Blood Potassium Urine Color Urine Appearance Urine pH Ur Specific [place] Urine Protein Urine Glucose (UA) Urine Ketones Urine Blood Urine Nitrate Urine Bilirubin Urine Urobilinogen Ur Leukocyte Esterase Urine RBC Urine WBC Ur Epithelial Cells Urine Bacteria Influenza Typ A,B (EIA) Pos for influenza a H EKG/Cardiology Studies: Cardiology / EKG Studies 11/18/17 23:33 ELECTROCARDIOGRAM Stat Comment: Reason For Exam: leaf sorter 11/19/17 01:37 EKG [ELECTROCARDIOGRAM] Stat Comment: Reason For Exam: afib Fingerstick Blood Sugar Results: 158 Review of Systems - Constitutional Constitutional: absent: Fever, Chills - EENT Eyes: UNREMARKABLE Ears: UNREMARKABLE - Cardiovascular Cardiovascular: UNREMARKABLE - Respiratory Respiratory: absent: Cough, Dyspnea on Exertion - Gastrointestinal Gastrointestinal: absent: Abdominal Pain, Constipation, Diarrhea, Nausea, Vomiting - Musculoskeletal Musculoskeletal: absent: Arthralgias, Numbness, Tingling - Integumentary Integumentary: Rash Assessment/Plan - Assessment and Plan (Free Text) Assessment: 72 y/o with h/o 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 CLIENT RELATIONSHIP MANAGER was called due to episode of hypotention. Patient was found to be in RVR Afib. Patient lactic acid trended down appropriately. Blood pressure currently stable. Patient will go to OR for procedure on right foot per podiatry. Plan: Neuro: awake and alert,orented x 3 Pulm: Patient saturating well Chest x-ray with old displaced right sided rib fractures, no infiltration. Head of bed above 35 degrees Cardiac: Hypotention initially in the setting of rvr afib Hypotention is likely secondary to sepsis Currently 95/50 Continue fluids at 125/hr Cardiac echo pending [place] Crer[place], follow rec ID: Sepsis with wound abscess as the possible source. BCx and ucx showing gram positive cocci will obtain wound culture. Started on Dapotmycin Continue Meropenem ID following, procal pending ESR, procalcitonin Rapid Flu positive Droplet precautions Tamiflu 30 daily started Renal: ROHINI- likely pre-renal, will repeat bmp to see if creatinine is responding to fluid CPK level pending Continue fluids at 125/hr Endo: IDDM: continue with insulin sliding scale and achs fingersticks. Heme: Leukocytosis likely due to infection, will trend. WBC 24.6 today h/h stable, will continue to monitor. Gi: PPI for GI prophylaxis. Skin: psoriasis rash superimposed with diffuse blanching errythematous lacy like rob initiallyt Benadryl currently improving Podiatry- purulent draining right plantar foot wound- r/o osteomyolitis culture sent, foot x-ray pending read, podiatry consulted. Pt to go to the OR today for incision and drainage of right foot abscess at 12:15pm pending cardiac and medical clearance -Will take wound culture in the OR - NPO status ordered- patient to not eat or drink anything -f/u HbA1c, ESR, procalcitonin -ordered duplex, pending results DVT prophylaxis: heparin sc <Yaniv Marino - Last Filed: 11/19/17 11:37> CCU Objective - Vital Signs / Intake & Output Vital Signs (Last 4 hours): Vital Signs Temp Pulse Resp BP Pulse Ox 11/19/17 10:02 80 135/79 11/19/17 08:17 97.9 F 11/19/17 08:16 71 11/19/17 08:00 71 23 116/63 95 Intake and Output (Last 8hrs): Intake & Output 11/18/17 11/19/17 11/19/17 22:59 06:59 14:59 Weight 269 lb - Medications Active Medications: Active Medications Generic Name Dose Route Start Last Admin Trade Name Freq PRN Reason Stop Dose Admin Acetaminophen 650 mg 11/18/17 20:49 Tylenol 325mg Tab PO Q6H PRN Fever >100.4 F Aspirin 81 mg 11/19/17 10:00 11/19/17 10:02 Aspirin Chewable PO 81 mg DAILY GERRY Administration Diphenhydramine HCl 25 mg 11/18/17 20:49 Benadryl IVP Q6 PRN Rash Meropenem 50 mls @ 100 mls/hr 11/18/17 20:00 11/19/17 10:00 Merrem Iv 1 Gm Premix IVPB 11/27/17 20:01 100 mls/hr Q12 GERRY Administration Protocol Sodium Chloride 1,000 mls @ 100 mls/hr 11/19/17 01:59 11/19/17 02:25 Sodium Chloride 0.45% IV Not Given .Q10H GERRY Daptomycin 730 mg/ Sodium 100 mls @ 200 mls/hr 11/19/17 10:00 11/19/17 10:46 Chloride IV 11/24/17 10:01 200 mls/hr QOD GERRY Administration Sodium Chloride 1,000 mls @ 125 mls/hr 11/19/17 09:45 11/19/17 10:01 Sodium Chloride 0.9% IV 125 mls/hr .Q8H GERRY Administration Insulin Human Regular 0 units 11/18/17 22:00 11/19/17 08:27 Humulin R Med SC Not Given ACHS GERRY Protocol Levalbuterol HCl 0.63 mg 11/19/17 02:00 11/19/17 08:04 Xopenex IH 0.63 mg [id number] GERRY Administration Levalbuterol HCl 1.25 mg 11/19/17 00:08 Xopenex IH [id number] PRN Shortness of Breath Metoprolol Tartrate 25 mg 11/19/17 10:00 11/19/17 10:02 Lopressor PO 25 mg BID GERRY Administration Oseltamivir Phosphate 30 mg 11/19/17 10:00 Tamiflu PO DAILY [facility] Protocol Pantoprazole Sodium 40 mg 11/19/17 06:00 11/19/17 05:32 Protonix Ec Tab PO 40 mg 0600 GERRY Administration - Patient Studies Lab Studies: Lab Studies 11/19/17 11/19/17 11/19/17 Range/Units 09:57 08:26 07:40 WBC (4.5-11.0) 10^3/ul RBC (3.5-6.1) 10^6/uL Hgb (14.0-18.0) g/dL Hct (42.0-52.0) % MCV (80.0-105.0) fl MCH (25.0-35.0) pg MCHC (31.0-37.0) g/dl RDW (11.5-14.5) % Plt Count (120.0-450.0) 10^3/uL MPV (7.0-11.0) fl Gran % (50.0-68.0) % Lymph % (Auto) (22.0-35.0) % [place] % (Auto) (1.0-6.0) % Eos % (Auto) (1.5-5.0) % Baso % (Auto) (0.0-3.0) % Gran # (1.4-6.5) Lymph # (Auto) (1.2-3.4) [place] # (Auto) (0.1-0.6) Eos # (Auto) (0.0-0.7) Baso # (Auto) (0.0-2.0) K/mm3 pCO2 (35-45) mm/Hg pO2 (30-55) mm/Hg HCO3 (21-28) mmol/L ABG pH (7.35-7.45) ABG Total CO2 (22-28) mmol.L ABG O2 Saturation (95-98) % ABG Base Excess (-2.0-3.0) mmol/L ABG Potassium (3.6-5.2) mmol/L VBG pH (7.32-7.43) VBG pCO2 (40-60) VBG HCO3 (21-28) mmol/l VBG Total CO2 (22-28) mmol.L VBG O2 Sat (Calc) (40-65) % VBG Base Excess (0.0-2.0) mmol/L VBG Potassium (3.6-5.2) mmol/L Sodium (132-148) mmol/L Chloride (98-107) mmol/L Glucose (75-110) mg/dl Lactate (0.7-2.1) mmol/L FiO2 % Potassium (3.6-5.0) mmol/L Carbon Dioxide (21-33) mmol/L Anion Gap (10-20) BUN (7-21) mg/dL Creatinine (0.8-1.5) mg/dl Est GFR ( Amer) Est GFR (Non-Af Amer) POC Glucose (mg/dL) 209 H (65-110) mg/dL Random Glucose (70-110) mg/dL Lactic Acid (0.7-2.1) mmol/L Calcium (8.4-10.5) mg/dL Total Creatine Kinase 170 (35-230) U/L Troponin I ng/mL Triglycerides (35-160) mg/dL Cholesterol (130-200) mg/dL LDL Cholesterol Direct (0-129) mg/dL HDL Cholesterol (29-60) mg/dL Arterial Blood Potassium (3.6-5.2) mmol/L Venous Blood Potassium (3.6-5.2) mmol/L Urine Color (YELLOW) Urine Appearance (CLEAR) Urine pH (4.7-8.0) Ur Specific [place] (1.005-1.035) Urine Protein (<30 mg/dL) mg/dL Urine Glucose (UA) (NEGATIVE) mg/dL Urine Ketones (NEGATIVE) mg/dL Urine Blood (NEGATIVE) Urine Nitrate (NEGATIVE) Urine Bilirubin (NEGATIVE) Urine Urobilinogen (<1 E.U./dL) E.U./dL Ur Leukocyte Esterase (NEGATIVE) [place]/uL Urine RBC (0-2) /hpf Urine WBC (0-6) /hpf Ur Epithelial Cells (0-5) /hpf Urine Bacteria (NEG) Influenza Typ A,B (EIA) Pos for influenza a H (NEGATIVE) 11/19/17 11/19/17 11/19/17 Range/Units 05:30 05:16 00:20 WBC (4.5-11.0) 10^3/ul RBC (3.5-6.1) 10^6/uL Hgb (14.0-18.0) g/dL Hct (42.0-52.0) % MCV (80.0-105.0) fl MCH (25.0-35.0) pg MCHC (31.0-37.0) g/dl RDW (11.5-14.5) % Plt Count (120.0-450.0) 10^3/uL MPV (7.0-11.0) fl Gran % (50.0-68.0) % Lymph % (Auto) (22.0-35.0) % [place] % (Auto) (1.0-6.0) % Eos % (Auto) (1.5-5.0) % Baso % (Auto) (0.0-3.0) % Gran # (1.4-6.5) Lymph # (Auto) (1.2-3.4) [place] # (Auto) (0.1-0.6) Eos # (Auto) (0.0-0.7) Baso # (Auto) (0.0-2.0) K/mm3 pCO2 34 L (35-45) mm/Hg pO2 75.0 L (30-55) mm/Hg HCO3 19.2 L (21-28) mmol/L ABG pH 7.36 (7.35-7.45) ABG Total CO2 20.2 L (22-28) mmol.L ABG O2 Saturation 97.3 (95-98) % ABG Base Excess -5.4 L (-2.0-3.0) mmol/L ABG Potassium 3.9 (3.6-5.2) mmol/L VBG pH (7.32-7.43) VBG pCO2 (40-60) VBG HCO3 (21-28) mmol/l VBG Total CO2 (22-28) mmol.L VBG O2 Sat (Calc) (40-65) % VBG Base Excess (0.0-2.0) mmol/L VBG Potassium (3.6-5.2) mmol/L Sodium 132.0 130 L (132-148) mmol/L Chloride 101.0 99 (98-107) mmol/L Glucose 254 H (75-110) mg/dl Lactate 1.7 (0.7-2.1) mmol/L FiO2 40.0 % Potassium 4.2 (3.6-5.0) mmol/L Carbon Dioxide 20 L (21-33) mmol/L Anion Gap 16 (10-20) BUN 45 H (7-21) mg/dL Creatinine 2.5 H (0.8-1.5) mg/dl Est GFR ( Amer) 31 Est GFR (Non-Af Amer) 26 POC Glucose (mg/dL) (65-110) mg/dL Random Glucose 228 H (70-110) mg/dL Lactic Acid (0.7-2.1) mmol/L Calcium 9.0 (8.4-10.5) mg/dL Total Creatine Kinase (35-230) U/L Troponin I 0.44 H* 0.45 H* ng/mL Triglycerides 140 (35-160) mg/dL Cholesterol 113 L (130-200) mg/dL LDL Cholesterol Direct 33 (0-129) mg/dL HDL Cholesterol 21 L (29-60) mg/dL Arterial Blood Potassium 3.9 (3.6-5.2) mmol/L Venous Blood Potassium (3.6-5.2) mmol/L Urine Color (YELLOW) Urine Appearance (CLEAR) Urine pH (4.7-8.0) Ur Specific [place] (1.005-1.035) Urine Protein (<30 mg/dL) mg/dL Urine Glucose (UA) (NEGATIVE) mg/dL Urine Ketones (NEGATIVE) mg/dL Urine Blood (NEGATIVE) Urine Nitrate (NEGATIVE) Urine Bilirubin (NEGATIVE) Urine Urobilinogen (<1 E.U./dL) E.U./dL Ur Leukocyte Esterase (NEGATIVE) Karolina/uL Urine RBC (0-2) /hpf Urine WBC (0-6) /hpf Ur Epithelial Cells (0-5) /hpf Urine Bacteria (NEG) Influenza Typ A,B (EIA) (NEGATIVE) 11/18/17 11/18/17 11/18/17 Range/Units 23:25 23:25 21:20 WBC 24.6 H (4.5-11.0) 10^3/ul RBC 4.47 (3.5-6.1) 10^6/uL Hgb 13.3 L (14.0-18.0) g/dL Hct 39.8 L (42.0-52.0) % MCV 89.0 (80.0-105.0) fl MCH 29.8 (25.0-35.0) pg MCHC 33.4 (31.0-37.0) g/dl RDW 14.4 (11.5-14.5) % Plt Count 135 (120.0-450.0) 10^3/uL MPV 10.0 (7.0-11.0) fl Gran % 89.9 H (50.0-68.0) % Lymph % (Auto) 4.9 L (22.0-35.0) % [place] % (Auto) 5.1 (1.0-6.0) % Eos % (Auto) 0.0 L (1.5-5.0) % Baso % (Auto) 0.1 (0.0-3.0) % Gran # 22.14 H (1.4-6.5) Lymph # (Auto) 1.2 (1.2-3.4) [place] # (Auto) 1.3 H (0.1-0.6) Eos # (Auto) 0.0 (0.0-0.7) Baso # (Auto) 0.03 (0.0-2.0) K/mm3 pCO2 35 (35-45) mm/Hg pO2 71.0 L (30-55) mm/Hg HCO3 20.2 L (21-28) mmol/L ABG pH 7.37 (7.35-7.45) ABG Total CO2 21.3 L (22-28) mmol.L ABG O2 Saturation 96.7 (95-98) % ABG Base Excess -4.4 L (-2.0-3.0) mmol/L ABG Potassium 4.0 (3.6-5.2) mmol/L VBG pH (7.32-7.43) VBG pCO2 (40-60) VBG HCO3 (21-28) mmol/l VBG Total CO2 (22-28) mmol.L VBG O2 Sat (Calc) (40-65) % VBG Base Excess (0.0-2.0) mmol/L VBG Potassium (3.6-5.2) mmol/L Sodium 129.0 L (132-148) mmol/L Chloride 99.0 (98-107) mmol/L Glucose 248 H (75-110) mg/dl Lactate 1.9 (0.7-2.1) mmol/L FiO2 40.0 % Potassium (3.6-5.0) mmol/L Carbon Dioxide (21-33) mmol/L Anion Gap (10-20) BUN (7-21) mg/dL Creatinine (0.8-1.5) mg/dl Est GFR ( Amer) Est GFR (Non-Af Amer) POC Glucose (mg/dL) 220 H (65-110) mg/dL Random Glucose (70-110) mg/dL Lactic Acid (0.7-2.1) mmol/L Calcium (8.4-10.5) mg/dL Total Creatine Kinase (35-230) U/L Troponin I ng/mL Triglycerides (35-160) mg/dL Cholesterol (130-200) mg/dL LDL Cholesterol Direct (0-129) mg/dL HDL Cholesterol (29-60) mg/dL Arterial Blood Potassium 4.0 (3.6-5.2) mmol/L Venous Blood Potassium (3.6-5.2) mmol/L Urine Color (YELLOW) Urine Appearance (CLEAR) Urine pH (4.7-8.0) Ur Specific [place] (1.005-1.035) Urine Protein (<30 mg/dL) mg/dL Urine Glucose (UA) (NEGATIVE) mg/dL Urine Ketones (NEGATIVE) mg/dL Urine Blood (NEGATIVE) Urine Nitrate (NEGATIVE) Urine Bilirubin (NEGATIVE) Urine Urobilinogen (<1 E.U./dL) E.U./dL Ur Leukocyte Esterase (NEGATIVE) Karolina/uL Urine RBC (0-2) /hpf Urine WBC (0-6) /hpf Ur Epithelial Cells (0-5) /hpf Urine Bacteria (NEG) Influenza Typ A,B (EIA) (NEGATIVE) 11/18/17 11/18/17 11/18/17 Range/Units 21:20 20:55 19:35 WBC (4.5-11.0) 10^3/ul RBC (3.5-6.1) 10^6/uL Hgb (14.0-18.0) g/dL Hct (42.0-52.0) % MCV (80.0-105.0) fl MCH (25.0-35.0) pg MCHC (31.0-37.0) g/dl RDW (11.5-14.5) % Plt Count (120.0-450.0) 10^3/uL MPV (7.0-11.0) fl Gran % (50.0-68.0) % Lymph % (Auto) (22.0-35.0) % [place] % (Auto) (1.0-6.0) % Eos % (Auto) (1.5-5.0) % Baso % (Auto) (0.0-3.0) % Gran # (1.4-6.5) Lymph # (Auto) (1.2-3.4) [place] # (Auto) (0.1-0.6) Eos # (Auto) (0.0-0.7) Baso # (Auto) (0.0-2.0) K/mm3 pCO2 (35-45) mm/Hg pO2 59 H (30-55) mm/Hg HCO3 (21-28) mmol/L ABG pH (7.35-7.45) ABG Total CO2 (22-28) mmol.L ABG O2 Saturation (95-98) % ABG Base Excess (-2.0-3.0) mmol/L ABG Potassium (3.6-5.2) mmol/L VBG pH 7.43 (7.32-7.43) VBG pCO2 37.0 L (40-60) VBG HCO3 24.6 (21-28) mmol/l VBG Total CO2 25.7 (22-28) mmol.L VBG O2 Sat (Calc) 94.5 H (40-65) % VBG Base Excess 0.5 (0.0-2.0) mmol/L VBG Potassium 3.9 (3.6-5.2) mmol/L Sodium 131.0 L (132-148) mmol/L Chloride 100.0 (98-107) mmol/L Glucose 172 H (75-110) mg/dl Lactate 1.8 (0.7-2.1) mmol/L FiO2 21.0 % Potassium (3.6-5.0) mmol/L Carbon Dioxide (21-33) mmol/L Anion Gap (10-20) BUN (7-21) mg/dL Creatinine (0.8-1.5) mg/dl Est GFR ( Amer) Est GFR (Non-Af Amer) POC Glucose (mg/dL) 158 H (65-110) mg/dL Random Glucose (70-110) mg/dL Lactic Acid 1.6 (0.7-2.1) mmol/L Calcium (8.4-10.5) mg/dL Total Creatine Kinase (35-230) U/L Troponin I ng/mL Triglycerides (35-160) mg/dL Cholesterol (130-200) mg/dL LDL Cholesterol Direct (0-129) mg/dL HDL Cholesterol (29-60) mg/dL Arterial Blood Potassium (3.6-5.2) mmol/L Venous Blood Potassium 3.9 (3.6-5.2) mmol/L Urine Color (YELLOW) Urine Appearance (CLEAR) Urine pH (4.7-8.0) Ur Specific [place] (1.005-1.035) Urine Protein (<30 mg/dL) mg/dL Urine Glucose (UA) (NEGATIVE) mg/dL Urine Ketones (NEGATIVE) mg/dL Urine Blood (NEGATIVE) Urine Nitrate (NEGATIVE) Urine Bilirubin (NEGATIVE) Urine Urobilinogen (<1 E.U./dL) E.U./dL Ur Leukocyte Esterase (NEGATIVE) Karolina/uL Urine RBC (0-2) /hpf Urine WBC (0-6) /hpf Ur Epithelial Cells (0-5) /hpf Urine Bacteria (NEG) Influenza Typ A,B (EIA) (NEGATIVE) 11/18/17 Range/Units 19:21 WBC (4.5-11.0) 10^3/ul RBC (3.5-6.1) 10^6/uL Hgb (14.0-18.0) g/dL Hct (42.0-52.0) % MCV (80.0-105.0) fl MCH (25.0-35.0) pg MCHC (31.0-37.0) g/dl RDW (11.5-14.5) % Plt Count (120.0-450.0) 10^3/uL MPV (7.0-11.0) fl Gran % (50.0-68.0) % Lymph % (Auto) (22.0-35.0) % [place] % (Auto) (1.0-6.0) % Eos % (Auto) (1.5-5.0) % Baso % (Auto) (0.0-3.0) % Gran # (1.4-6.5) Lymph # (Auto) (1.2-3.4) [place] # (Auto) (0.1-0.6) Eos # (Auto) (0.0-0.7) Baso # (Auto) (0.0-2.0) K/mm3 pCO2 (35-45) mm/Hg pO2 (30-55) mm/Hg HCO3 (21-28) mmol/L ABG pH (7.35-7.45) ABG Total CO2 (22-28) mmol.L ABG O2 Saturation (95-98) % ABG Base Excess (-2.0-3.0) mmol/L ABG Potassium (3.6-5.2) mmol/L VBG pH (7.32-7.43) VBG pCO2 (40-60) VBG HCO3 (21-28) mmol/l VBG Total CO2 (22-28) mmol.L VBG O2 Sat (Calc) (40-65) % VBG Base Excess (0.0-2.0) mmol/L VBG Potassium (3.6-5.2) mmol/L Sodium (132-148) mmol/L Chloride (98-107) mmol/L Glucose (75-110) mg/dl Lactate (0.7-2.1) mmol/L FiO2 % Potassium (3.6-5.0) mmol/L Carbon Dioxide (21-33) mmol/L Anion Gap (10-20) BUN (7-21) mg/dL Creatinine (0.8-1.5) mg/dl Est GFR ( Amer) Est GFR (Non-Af Amer) POC Glucose (mg/dL) (65-110) mg/dL Random Glucose (70-110) mg/dL Lactic Acid (0.7-2.1) mmol/L Calcium (8.4-10.5) mg/dL Total Creatine Kinase (35-230) U/L Troponin I ng/mL Triglycerides (35-160) mg/dL Cholesterol (130-200) mg/dL LDL Cholesterol Direct (0-129) mg/dL HDL Cholesterol (29-60) mg/dL Arterial Blood Potassium (3.6-5.2) mmol/L Venous Blood Potassium (3.6-5.2) mmol/L Urine Color Yellow (YELLOW) Urine Appearance Sl cloudy (CLEAR) Urine pH 6.0 (4.7-8.0) Ur Specific [place] 1.020 (1.005-1.035) Urine Protein 30 H (<30 mg/dL) mg/dL Urine Glucose (UA) >=1000 (NEGATIVE) mg/dL Urine Ketones Trace H (NEGATIVE) mg/dL Urine Blood Moderate H (NEGATIVE) Urine Nitrate Negative (NEGATIVE) Urine Bilirubin Small H (NEGATIVE) Urine Urobilinogen 1.0 H (<1 E.U./dL) E.U./dL Ur Leukocyte Esterase Negative (NEGATIVE) Karolina/uL Urine RBC 2 - 5 (0-2) /hpf Urine WBC 0 - 2 (0-6) /hpf Ur Epithelial Cells None (0-5) /hpf Urine Bacteria Large (NEG) Influenza Typ A,B (EIA) (NEGATIVE) Laboratory Results - last 24 hr 11/18/17 11/18/17 11/18/17 19:21 19:35 20:55 WBC RBC Hgb Hct MCV MCH MCHC RDW Plt Count MPV Gran % Lymph % (Auto) [place] % (Auto) Eos % (Auto) Baso % (Auto) Gran # Lymph # (Auto) [place] # (Auto) Eos # (Auto) Baso # (Auto) pCO2 pO2 HCO3 ABG pH ABG Total CO2 ABG O2 Saturation ABG Base Excess ABG Potassium VBG pH VBG pCO2 VBG HCO3 VBG Total CO2 VBG O2 Sat (Calc) VBG Base Excess VBG Potassium Sodium Chloride Glucose Lactate FiO2 Potassium Carbon Dioxide Anion Gap BUN Creatinine Est GFR ( Amer) Est GFR (Non-Af Amer) POC Glucose (mg/dL) 158 H Random Glucose Lactic Acid 1.6 Calcium Total Creatine Kinase Troponin I Triglycerides Cholesterol LDL Cholesterol Direct HDL Cholesterol Arterial Blood Potassium Venous Blood Potassium Urine Color Yellow Urine Appearance Sl cloudy Urine pH 6.0 Ur Specific [place] 1.020 Urine Protein 30 H Urine Glucose (UA) >=1000 Urine Ketones Trace H Urine Blood Moderate H Urine Nitrate Negative Urine Bilirubin Small H Urine Urobilinogen 1.0 H Ur Leukocyte Esterase Negative Urine RBC 2 - 5 Urine WBC 0 - 2 Ur Epithelial Cells None Urine Bacteria Large Influenza Typ A,B (EIA) 11/18/17 11/18/17 11/18/17 21:20 21:20 23:25 WBC 24.6 H RBC 4.47 Hgb 13.3 L Hct 39.8 L MCV 89.0 MCH 29.8 MCHC 33.4 RDW 14.4 Plt Count 135 MPV 10.0 Gran % 89.9 H Lymph % (Auto) 4.9 L [place] % (Auto) 5.1 Eos % (Auto) 0.0 L Baso % (Auto) 0.1 Gran # 22.14 H Lymph # (Auto) 1.2 [place] # (Auto) 1.3 H Eos # (Auto) 0.0 Baso # (Auto) 0.03 pCO2 pO2 59 H HCO3 ABG pH ABG Total CO2 ABG O2 Saturation ABG Base Excess ABG Potassium VBG pH 7.43 VBG pCO2 37.0 L VBG HCO3 24.6 VBG Total CO2 25.7 VBG O2 Sat (Calc) 94.5 H VBG Base Excess 0.5 VBG Potassium 3.9 Sodium 131.0 L Chloride 100.0 Glucose 172 H Lactate 1.8 FiO2 21.0 Potassium Carbon Dioxide Anion Gap BUN Creatinine Est GFR ( Amer) Est GFR (Non-Af Amer) POC Glucose (mg/dL) 220 H Random Glucose Lactic Acid Calcium Total Creatine Kinase Troponin I Triglycerides Cholesterol LDL Cholesterol Direct HDL Cholesterol Arterial Blood Potassium Venous Blood Potassium 3.9 Urine Color Urine Appearance Urine pH Ur Specific [place] Urine Protein Urine Glucose (UA) Urine Ketones Urine Blood Urine Nitrate Urine Bilirubin Urine Urobilinogen Ur Leukocyte Esterase Urine RBC Urine WBC Ur Epithelial Cells Urine Bacteria Influenza Typ A,B (EIA) 11/18/17 11/19/17 11/19/17 23:25 00:20 05:16 WBC RBC Hgb Hct MCV MCH MCHC RDW Plt Count MPV Gran % Lymph % (Auto) [place] % (Auto) Eos % (Auto) Baso % (Auto) Gran # Lymph # (Auto) [place] # (Auto) Eos # (Auto) Baso # (Auto) pCO2 35 pO2 71.0 L HCO3 20.2 L ABG pH 7.37 ABG Total CO2 21.3 L ABG O2 Saturation 96.7 ABG Base Excess -4.4 L ABG Potassium 4.0 VBG pH VBG pCO2 VBG HCO3 VBG Total CO2 VBG O2 Sat (Calc) VBG Base Excess VBG Potassium Sodium 129.0 L 130 L Chloride 99.0 99 Glucose 248 H Lactate 1.9 FiO2 40.0 Potassium 4.2 Carbon Dioxide 20 L Anion Gap 16 BUN 45 H Creatinine 2.5 H Est GFR ( Amer) 31 Est GFR (Non-Af Amer) 26 POC Glucose (mg/dL) Random Glucose 228 H Lactic Acid Calcium 9.0 Total Creatine Kinase Troponin I 0.45 H* 0.44 H* Triglycerides 140 Cholesterol 113 L LDL Cholesterol Direct 33 HDL Cholesterol 21 L Arterial Blood Potassium 4.0 Venous Blood Potassium Urine Color Urine Appearance Urine pH Ur Specific [place] Urine Protein Urine Glucose (UA) Urine Ketones Urine Blood Urine Nitrate Urine Bilirubin Urine Urobilinogen Ur Leukocyte Esterase Urine RBC Urine WBC Ur Epithelial Cells Urine Bacteria Influenza Typ A,B (EIA) 11/19/17 11/19/17 11/19/17 05:30 07:40 08:26 WBC RBC Hgb Hct MCV MCH MCHC RDW Plt Count MPV Gran % Lymph % (Auto) [place] % (Auto) Eos % (Auto) Baso % (Auto) Gran # Lymph # (Auto) [place] # (Auto) Eos # (Auto) Baso # (Auto) pCO2 34 L pO2 75.0 L HCO3 19.2 L ABG pH 7.36 ABG Total CO2 20.2 L ABG O2 Saturation 97.3 ABG Base Excess -5.4 L ABG Potassium 3.9 VBG pH VBG pCO2 VBG HCO3 VBG Total CO2 VBG O2 Sat (Calc) VBG Base Excess VBG Potassium Sodium 132.0 Chloride 101.0 Glucose 254 H Lactate 1.7 FiO2 40.0 Potassium Carbon Dioxide Anion Gap BUN Creatinine Est GFR ( Amer) Est GFR (Non-Af Amer) POC Glucose (mg/dL) 209 H Random Glucose Lactic Acid Calcium Total Creatine Kinase Troponin I Triglycerides Cholesterol LDL Cholesterol Direct HDL Cholesterol Arterial Blood Potassium 3.9 Venous Blood Potassium Urine Color Urine Appearance Urine pH Ur Specific [place] Urine Protein Urine Glucose (UA) Urine Ketones Urine Blood Urine Nitrate Urine Bilirubin Urine Urobilinogen Ur Leukocyte Esterase Urine RBC Urine WBC Ur Epithelial Cells Urine Bacteria Influenza Typ A,B (EIA) Pos for influenza a H 11/19/17 09:57 WBC RBC Hgb Hct MCV MCH MCHC RDW Plt Count MPV Gran % Lymph % (Auto) [place] % (Auto) Eos % (Auto) Baso % (Auto) Gran # Lymph # (Auto) [place] # (Auto) Eos # (Auto) Baso # (Auto) pCO2 pO2 HCO3 ABG pH ABG Total CO2 ABG O2 Saturation ABG Base Excess ABG Potassium VBG pH VBG pCO2 VBG HCO3 VBG Total CO2 VBG O2 Sat (Calc) VBG Base Excess VBG Potassium Sodium Chloride Glucose Lactate FiO2 Potassium Carbon Dioxide Anion Gap BUN Creatinine Est GFR ( Amer) Est GFR (Non-Af Amer) POC Glucose (mg/dL) Random Glucose Lactic Acid Calcium Total Creatine Kinase 170 Troponin I Triglycerides Cholesterol LDL Cholesterol Direct HDL Cholesterol Arterial Blood Potassium Venous Blood Potassium Urine Color Urine Appearance Urine pH Ur Specific [place] Urine Protein Urine Glucose (UA) Urine Ketones Urine Blood Urine Nitrate Urine Bilirubin Urine Urobilinogen Ur Leukocyte Esterase Urine RBC Urine WBC Ur Epithelial Cells Urine Bacteria Influenza Typ A,B (EIA) EKG/Cardiology Studies: Cardiology / EKG Studies 11/18/17 23:33 ELECTROCARDIOGRAM Stat Comment: Reason For Exam: leaf sorter 11/19/17 01:37 EKG [ELECTROCARDIOGRAM] Stat Comment: Reason For Exam: afib Assessment/Plan - Assessment and Plan (Free Text) Plan: Patient seen and examined, on rounds with resident, agree with note with following additions/exceptions: Patient is 72yo male with PMHx of IDDM, HTN, obesity, R foot ulcer, transferred from floor for severe sepsis, hypotension, which responded to IVF bolus. Currently awake, alert, tolerating breakfast, afebrile, HD stable, in NSR, comfortable in NAD. BCx showing gram positive cocci, FLU positive, started on tamiflu. Labs with acute renal failure. ARF Influenza Foot ulcer IDDM Severe sepsis Leukocytosis Recommend - supp o2 as needed - broad spectrum antibiotics, Vanco, merrem - Start Tamiflu, renally dosed - follow up repeat BCx, UCx - ECHO - follow up ID - IVF, NS 125cc/hr - renal sonogram - [place] - check CPK - Follow up Podiatry, possible OR today - FS control - check HgbA1C, Lipid Panel - GI ppx - DVT ppx - stable, transfer to telemetry
--- NOTE | 2017-11-19 10:08 | CARD ---
APPROVED REPORT EKG Measurement Heart [id number] <Conclusion> Sinus tachycardia new since ECG 11/18/17 showing AF with RVR Left axis deviation Low voltage QRS Incomplete right bundle branch block
--- NOTE | 2017-11-19 10:14 | RAD ---
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 PLEURA: No significant pleural effusion identified, no pneumothorax apparent. CARDIOVASCULAR: Normal. OSSEOUS STRUCTURES: No significant abnormalities. VISUALIZED UPPER ABDOMEN: Normal. OTHER FINDINGS: None. IMPRESSION: No active disease.
--- NOTE | 2017-11-19 11:05 | CP.PCM.CON ---
History of Present Illness - History of Present Illness History of Present Illness: 72 year old male with PMH of DM, HTN, dyslipidemia, psoriasis, history of wounds in the foot, history of rib fractures due to trauma was brought in to [facility] because of fever, pain in the right foot for about 2 days. In the ED, the patient was also noted to have low blood pressure and the patient was fluid resuscitated. He has some generalized weakness and malaise, no nausea or vomiting, no abdominal pain, dry cough, no rhinorrhea, no sore throat, no chest pain, no headache or dizziness, no diarrhea, no dysuria. Patient was noted to be febrile in the ED as well, and now the blood cx taken from the ER are growing gram positive cocci in clusters. Infectious diseases consult is requested to further evaluate and manage. Review of Systems - Review of Systems All systems: reviewed and no additional remarkable complaints except (as per HPI ) Past Patient History - Infectious Disease Hx of Infectious Diseases: None - Past Social History Smoking Status: Former Smoker (quit 30 years ago) - CARDIAC Hx Hypertension: Yes - PULMONARY Hx Respiratory Disorders: Yes Other/Comment: 5 broken ribs and scar tissue to R lung - NEUROLOGICAL Hx Neurological Disorder: No - HEENT Hx HEENT Problems: Yes Other/Comment: glasses - RENAL Hx Chronic Kidney Disease: No - ENDOCRINE/METABOLIC Hx Diabetes Mellitus Type 2: Yes - HEMATOLOGICAL/ONCOLOGICAL Hx Blood Transfusions: No - INTEGUMENTARY Hx Psoriasis: Yes - MUSCULOSKELETAL/RHEUMATOLOGICAL Hx Falls: No - GASTROINTESTINAL Hx Gastrointestinal Disorders: No - GENITOURINARY/GYNECOLOGICAL Hx Genitourinary Disorders: No - PSYCHIATRIC Hx Emotional Abuse: No Hx Physical Abuse: No Hx Substance Use: No - SURGICAL HISTORY Hx Orthopedic Surgery: Yes (rt toe amputee) - ANESTHESIA Hx Anesthesia Reactions: No Hx Malignant Hyperthermia: No Meds Allergies/Adverse Reactions: Allergies Allergy/AdvReac Type Severity Reaction Status Date / Time kiwi Allergy RASH Verified 11/18/17 15:42 strawberry AdvReac RASH Verified 11/18/17 15:42 rasberries AdvReac Intermediate RASH Uncoded 03/28/17 10:18 - Medications Medications: Current Medications Acetaminophen (Tylenol 325mg Tab) 975 mg PO ONCE PRN PRN Reason: Fever >100.4 F Last Admin: 11/18/17 16:19 Dose: 975 mg Acetaminophen (Tylenol 325mg Tab) 650 mg PO Q6H PRN PRN Reason: Fever >100.4 F Aspirin (Aspirin Chewable) 81 mg PO DAILY [facility] Diphenhydramine HCl (Benadryl) 25 mg IVP Q6 PRN PRN Reason: Rash Heparin Sodium (Porcine) (Heparin) 5,000 units SC Q8 GERRY PRN Reason: Protocol Last Admin: 11/19/17 05:32 Dose: 5,000 units Meropenem (Merrem Iv 1 Gm Premix) 50 mls @ 100 mls/hr IVPB Q12 GERRY PRN Reason: Protocol Stop: 11/27/17 20:01 Last Admin: 11/19/17 00:23 Dose: Not Given Linezolid (Zyvox 600mg/300ml D5w) 600 mg in 300 mls @ 200 mls/hr IVPB Q12 GERRY PRN Reason: Protocol Stop: 11/27/17 22:01 Last Admin: 11/18/17 21:45 Dose: 200 mls/hr Sodium Chloride (Sodium Chloride 0.45%) 1,000 mls @ 100 mls/hr IV .Q10H [facility] Last Admin: 11/19/17 02:25 Dose: Not Given Sodium Chloride (Sodium Chloride 0.9%) 1,000 mls @ 100 mls/hr IV .Q10H [facility] Last Admin: 11/19/17 02:20 Dose: 100 mls/hr Insulin Human Regular (Humulin R Med) 0 units SC ACHS GERRY PRN Reason: Protocol Last Admin: 11/18/17 21:47 Dose: Not Given Levalbuterol HCl (Xopenex) 0.63 mg IH [id number] [facility] Last Admin: 11/19/17 01:44 Dose: 0.63 mg Levalbuterol HCl (Xopenex) 1.25 mg IH [id number] PRN PRN Reason: Shortness of Breath Pantoprazole Sodium (Protonix Ec Tab) 40 mg PO 0600 [facility] Last Admin: 11/19/17 05:32 Dose: 40 mg Physical Exam - Constitutional Appears: Non-toxic, Chronically Ill - Head Exam Head Exam: NORMAL INSPECTION - ENT Exam ENT Exam: Mucous Membranes Moist - Neck Exam Neck exam: Negative for: Lymphadenopathy, Meningismus - Respiratory Exam Respiratory Exam: Decreased Breath Sounds. absent: Rales - Cardiovascular Exam Cardiovascular Exam: +S1, +S2 - GI/Abdominal Exam GI & Abdominal Exam: Soft. absent: Tenderness - Extremities Exam Additional comments: right foot with dressings in place - Skin Skin Exam: Rash (note of scaly erythematous plaques on the left gluteal area, arms and legs) Results - Vital Signs Recent Vital Signs: Last Vital Signs Temp 99.8 F H 11/18/17 21:10 Pulse 73 11/19/17 05:21 Resp 21 11/19/17 05:21 BP 98/58 L 11/19/17 05:00 Pulse Ox 94 L 11/19/17 05:21 - Labs Result Diagrams: 11/18/17 21:20 11/19/17 00:20 Labs: Laboratory Results - last 24 hr 11/18/17 11/18/17 11/18/17 19:21 19:35 20:55 WBC RBC Hgb Hct MCV MCH MCHC RDW Plt Count MPV Gran % Lymph % (Auto) [place] % (Auto) Eos % (Auto) Baso % (Auto) Gran # Lymph # (Auto) [place] # (Auto) Eos # (Auto) Baso # (Auto) pCO2 pO2 HCO3 ABG pH ABG Total CO2 ABG O2 Saturation ABG Base Excess ABG Potassium VBG pH VBG pCO2 VBG HCO3 VBG Total CO2 VBG O2 Sat (Calc) VBG Base Excess VBG Potassium Sodium Chloride Glucose Lactate FiO2 Potassium Carbon Dioxide Anion Gap BUN Creatinine Est GFR ( Amer) Est GFR (Non-Af Amer) POC Glucose (mg/dL) 158 H Random Glucose Lactic Acid 1.6 Calcium Troponin I Arterial Blood Potassium Venous Blood Potassium Urine Color Yellow Urine Appearance Sl cloudy Urine pH 6.0 Ur Specific [place] 1.020 Urine Protein 30 H Urine Glucose (UA) >=1000 Urine Ketones Trace H Urine Blood Moderate H Urine Nitrate Negative Urine Bilirubin Small H Urine Urobilinogen 1.0 H Ur Leukocyte Esterase Negative Urine RBC 2 - 5 Urine WBC 0 - 2 Ur Epithelial Cells None Urine Bacteria Large 11/18/17 11/18/17 11/18/17 21:20 21:20 23:25 WBC 24.6 H RBC 4.47 Hgb 13.3 L Hct 39.8 L MCV 89.0 MCH 29.8 MCHC 33.4 RDW 14.4 Plt Count 135 MPV 10.0 Gran % 89.9 H Lymph % (Auto) 4.9 L [place] % (Auto) 5.1 Eos % (Auto) 0.0 L Baso % (Auto) 0.1 Gran # 22.14 H Lymph # (Auto) 1.2 [place] # (Auto) 1.3 H Eos # (Auto) 0.0 Baso # (Auto) 0.03 pCO2 pO2 59 H HCO3 ABG pH ABG Total CO2 ABG O2 Saturation ABG Base Excess ABG Potassium VBG pH 7.43 VBG pCO2 37.0 L VBG HCO3 24.6 VBG Total CO2 25.7 VBG O2 Sat (Calc) 94.5 H VBG Base Excess 0.5 VBG Potassium 3.9 Sodium 131.0 L Chloride 100.0 Glucose 172 H Lactate 1.8 FiO2 21.0 Potassium Carbon Dioxide Anion Gap BUN Creatinine Est GFR ( Amer) Est GFR (Non-Af Amer) POC Glucose (mg/dL) 220 H Random Glucose Lactic Acid Calcium Troponin I Arterial Blood Potassium Venous Blood Potassium 3.9 Urine Color Urine Appearance Urine pH Ur Specific [place] Urine Protein Urine Glucose (UA) Urine Ketones Urine Blood Urine Nitrate Urine Bilirubin Urine Urobilinogen Ur Leukocyte Esterase Urine RBC Urine WBC Ur Epithelial Cells Urine Bacteria 11/18/17 11/19/17 23:25 00:20 WBC RBC Hgb Hct MCV MCH MCHC RDW Plt Count MPV Gran % Lymph % (Auto) [place] % (Auto) Eos % (Auto) Baso % (Auto) Gran # Lymph # (Auto) [place] # (Auto) Eos # (Auto) Baso # (Auto) pCO2 35 pO2 71.0 L HCO3 20.2 L ABG pH 7.37 ABG Total CO2 21.3 L ABG O2 Saturation 96.7 ABG Base Excess -4.4 L ABG Potassium 4.0 VBG pH VBG pCO2 VBG HCO3 VBG Total CO2 VBG O2 Sat (Calc) VBG Base Excess VBG Potassium Sodium 129.0 L 130 L Chloride 99.0 99 Glucose 248 H Lactate 1.9 FiO2 40.0 Potassium 4.2 Carbon Dioxide 20 L Anion Gap 16 BUN 45 H Creatinine 2.5 H Est GFR ( Amer) 31 Est GFR (Non-Af Amer) 26 POC Glucose (mg/dL) Random Glucose 228 H Lactic Acid Calcium 9.0 Troponin I 0.45 H* Arterial Blood Potassium 4.0 Venous Blood Potassium Urine Color Urine Appearance Urine pH Ur Specific [place] Urine Protein Urine Glucose (UA) Urine Ketones Urine Blood Urine Nitrate Urine Bilirubin Urine Urobilinogen Ur Leukocyte Esterase Urine RBC Urine WBC Ur Epithelial Cells Urine Bacteria Assessment & Plan - Assessment and Plan (Free Text) Plan: Assessment Severe sepsis with acute renal failure due to gram positive cocci in clusters bacteremia, consider due to right foot severe skin and skin structure infection , R/O other sources history of right hallux infected ulcer (with gangrene), grew Serratia S/P 1st ray amputation DM HTN dyslipidemia psoriasis history of wounds in the foot history of rib fractures due to trauma Plan started renally-adjusted Daptomycin and Merrem pending identification and sensitivities of the gram positive cocci in the blood - will repeat blood cx tomorrow; will order 2D echo; follow up Podiatry plans for the right foot will monitor clinically
[2017-11-19] MEDS ORDERED: Lidocaine 2% Inj (20ml) ONE (12:10)
[2017-11-19] MEDS ORDERED: Gentamicin 80 mg/2mL Inj. ONE (12:21)
[2017-11-19] MEDS ORDERED: Midazolam 2 MG/2 ML VIAL ONE (12:22)
[2017-11-19] MEDS ORDERED: Propofol 10 mg/ml Inj (20 ML) ONE ×2 (12:22→21:53)
[2017-11-19] MEDS ORDERED: Flumazenil 0.1 mg/ml Inj (5ml) IVP ONE (12:56)
--- NOTE | 2017-11-19 13:08 | US ---
PROCEDURE: Ultrasound of the Kidneys HISTORY: ROHINI COMPARISON: None available. TECHNIQUE: Sonogram of the kidneys. FINDINGS: RIGHT KIDNEY: Measures: 6 x 11.8 cm. Normal in size, contour and echogenicity. No stone, solid mass lesion or hydronephrosis visualized. LEFT KIDNEY: Measures: 6 x 11.7 cm. Normal in size, contour and echogenicity. No stone, solid mass lesion or hydronephrosis visualized. OTHER FINDINGS: None. IMPRESSION: Unremarkable renal sonogram.
--- NOTE | 2017-11-19 13:10 | PCM.SURG1 ---
Surgeon's Initial Post Op Note - Surgeon's Notes Surgeon: Dr. Eileen Baron DPM Mill Helper: Dr. Jose C Rodgers DPM PGY-1 Type of Anesthesia: IV Sedation, Local Anesthesia Administered By: Dr. Lorne Goodman Pre-Operative Diagnosis: right foot infection with abscess Operative Findings: see dications. injectables: 9cc of 2% lidocain plain, 1 inch iodoform packing Post-Operative Diagnosis: same Operation Performed: incision and drainage of right foot infection and abscess Specimen/Specimens Removed: wound culture Estimated Blood Loss: EBL {In ML}: 5 Blood Products Given: N/A Drains Used: No Drains Post-Op Condition: Fair Date of Surgery/Procedure: 11/19/17 Time of Surgery/Procedure: 12:25
[2017-11-19] MEDS ORDERED: Oxycodone/Acetaminophen 5/325 mg Tab PO PRN ×2 (13:13)
--- NOTE | 2017-11-19 14:51 | CP.PCM.CON ---
History of Present Illness - History of Present Illness History of Present Illness: Nephrology Consultation Note: Assessment: critical Acute Kidney Injury (N17.9) likely due to ATN due to sepsis, hypotension/shock Influenza A DM, HTN (I12.0) active cigar smoker, obesity sepsis with GPC with Rt foot infection likely PVD Hyponatremia Plan No acute need for renal replacement therapy at this time. maintain hemodynamics stable. Patient not on ACEI/ARB due to ROHINI Monitor Input/Output, daily weights and renal function with basic metabolic panel continue with IVF Check urine analysis, spot protein/creatinine and albumin/creatinine ratio, renal sonogram. Dose meds/antibiotics for reduced GFR. Avoid fleets enema/magnesium based laxatives. Avoid nephrotoxins/NSAIDs/ iodinated contrast (unless needed emergently) Glycemic control pt encouraged to stop smoking Further work up/management as per primary team Thanks for allowing me to participate in care of your patient. Will follow patient with you. Please call if any Qs Dr Caden Muller Office: [phone] Chief Complaint: foot infection HPI: Pt is a 72 M with hx of diabetes Mellitus (9 years), hypertension (years) , active cigar smoker, obesity and Rt foot infection presented with complaints of Rt foot wound infection with sepsis and also with Influenza. renal consult for ROHINI eval. pt not aware about prior hx of renal disease in past. his cr 1.1 in 2017 Denies OTC/herbal meds or NSAIDs No recent iodinated contrast exposure.noted episodes of low BP. ROS: Cardiovascular: No chest pain. Pulmonary: No shortness of breath Gastrointestinal: denies abdominal pain No nausea. No vomiting. Genitourinary: No pain while urinating. Denies blood in urine. All other negative except as mentioned in HPI Physical Examination: General Appearance: Comfortable, in no acute respiratory distress, co-operative . obese Vitals reviewed and noted as below Head; Atraumatic, normocephalic ENT: no ulcers no thrush. Tongue is midline. Oropharynx: no rash or ulcers. EYES: Pupils are equal, round and reactive to light accommodation. Eye muscles and extraocular movement intact. Sclera is anicteric. Neck; supple no lymphadenopathy, no thyromegaly or bruit Lungs: Normal respiratory rate/effort. Breath sounds bilateral equal and clear Heart: Normal rate. s1s2 normal. No rub or gallop. Extremities: Rt pedal edema. No varicose veins. Rt foot dressed. pedal pulses diminished Neurological: Patient is alert, awake and oriented to person, place and time. No focal deficit. Strength bilateral appropriate and equal Skin: Warm and dry. Normal turgor. No rash. Palpitation: Normal elasticity for age Abdomen: Abdomen is soft. Bowel sounds +. There is no abdominal tenderness, no guarding/rigidity no organomegaly Psych: normal insight and normal affect/mood MSK: no joint tenderness or swelling. Digits and nails normal, no deformity : kidney or bladder not palpable Labs/imaging reviewed. Past medical history, past surgical history, family history, social history, allergy reviewed and noted as below Family hx: no hx of CKD. Rest non-contributory workup: renal SONO: WNL CPK normal UA 30 protein moderate blood and 4+ glucose Past Patient History - Infectious Disease Hx of Infectious Diseases: None - Past Social History Smoking Status: Former Smoker (quit 30 years ago) - CARDIAC Hx Hypertension: Yes - PULMONARY Hx Respiratory Disorders: Yes Other/Comment: 5 broken ribs and scar tissue to R lung - NEUROLOGICAL Hx Neurological Disorder: No - HEENT Hx HEENT Problems: Yes Other/Comment: glasses - RENAL Hx Chronic Kidney Disease: No - ENDOCRINE/METABOLIC Hx Diabetes Mellitus Type 2: Yes - HEMATOLOGICAL/ONCOLOGICAL Hx Blood Transfusions: No - INTEGUMENTARY Hx Psoriasis: Yes - MUSCULOSKELETAL/RHEUMATOLOGICAL Hx Falls: No - GASTROINTESTINAL Hx Gastrointestinal Disorders: No - GENITOURINARY/GYNECOLOGICAL Hx Genitourinary Disorders: No - PSYCHIATRIC Hx Emotional Abuse: No Hx Physical Abuse: No Hx Substance Use: No - SURGICAL HISTORY Hx Orthopedic Surgery: Yes (rt toe amputee) - ANESTHESIA Hx Anesthesia Reactions: No Hx Malignant Hyperthermia: No Meds Allergies/Adverse Reactions: Allergies Allergy/AdvReac Type Severity Reaction Status Date / Time kiwi Allergy RASH Verified 11/18/17 15:42 strawberry AdvReac RASH Verified 11/18/17 15:42 rasberries AdvReac Intermediate RASH Uncoded 03/28/17 10:18 - Medications Medications: Current Medications Acetaminophen (Tylenol 325mg Tab) 650 mg PO Q6H PRN PRN Reason: Fever >100.4 F Aspirin (Aspirin Chewable) 81 mg PO DAILY GERRY Last Admin: 11/19/17 10:02 Dose: 81 mg Diphenhydramine HCl (Benadryl) 25 mg IVP Q6 PRN PRN Reason: Rash Meropenem (Merrem Iv 1 Gm Premix) 50 mls @ 100 mls/hr IVPB Q12 GERRY PRN Reason: Protocol Stop: 11/27/17 20:01 Last Admin: 11/19/17 10:00 Dose: 100 mls/hr Daptomycin 730 mg/ Sodium (Chloride) 100 mls @ 200 mls/hr IV QOD [facility] Stop: 11/24/17 10:01 Last Admin: 11/19/17 10:46 Dose: 200 mls/hr Sodium Chloride (Sodium Chloride 0.9%) 1,000 mls @ 125 mls/hr IV .Q8H [facility] Last Admin: 11/19/17 10:01 Dose: 125 mls/hr Insulin Human Regular (Humulin R Med) 0 units SC ACHS GERRY PRN Reason: Protocol Last Admin: 11/19/17 13:55 Dose: Not Given Levalbuterol HCl (Xopenex) 0.63 mg IH [id number] [facility] Last Admin: 11/19/17 13:36 Dose: 0.63 mg Levalbuterol HCl (Xopenex) 1.25 mg IH [id number] PRN PRN Reason: Shortness of Breath Metoprolol Tartrate (Lopressor) 25 mg PO BID [facility] Last Admin: 11/19/17 10:02 Dose: 25 mg Oseltamivir Phosphate (Tamiflu) 30 mg PO DAILY [facility] PRN Reason: Protocol Last Admin: 11/19/17 11:30 Dose: 30 mg Oxycodone/Acetaminophen (Percocet 5/325 Mg Tab) 1 tab PO Q4H PRN PRN Reason: Pain, moderate (4-7) Stop: 11/22/17 13:14 Oxycodone/Acetaminophen (Percocet 5/325 Mg Tab) 2 tab PO Q4H PRN PRN Reason: Pain, severe (8-10) Stop: 11/22/17 13:14 Pantoprazole Sodium (Protonix Ec Tab) 40 mg PO 0600 [facility] Last Admin: 11/19/17 05:32 Dose: 40 mg Results - Vital Signs Recent Vital Signs: Last Vital Signs Temp 97.9 F 11/19/17 08:17 Pulse 70 11/19/17 13:30 Resp 31 H 11/19/17 13:07 BP 101/49 L 11/19/17 13:30 Pulse Ox 95 11/19/17 13:30 - Labs Result Diagrams: 11/18/17 21:20 11/19/17 00:20 Labs: Laboratory Results - last 24 hr 11/18/17 11/18/17 11/18/17 19:21 19:35 20:55 WBC RBC Hgb Hct MCV MCH MCHC RDW Plt Count MPV Gran % Lymph % (Auto) [place] % (Auto) Eos % (Auto) Baso % (Auto) Gran # Lymph # (Auto) [place] # (Auto) Eos # (Auto) Baso # (Auto) pCO2 pO2 HCO3 ABG pH ABG Total CO2 ABG O2 Saturation ABG Base Excess ABG Potassium VBG pH VBG pCO2 VBG HCO3 VBG Total CO2 VBG O2 Sat (Calc) VBG Base Excess VBG Potassium Sodium Chloride Glucose Lactate FiO2 Potassium Carbon Dioxide Anion Gap BUN Creatinine Est GFR ( Amer) Est GFR (Non-Af Amer) POC Glucose (mg/dL) 158 H Random Glucose Hemoglobin A1c Lactic Acid 1.6 Calcium Total Creatine Kinase Troponin I Triglycerides Cholesterol LDL Cholesterol Direct HDL Cholesterol Procalcitonin Arterial Blood Potassium Venous Blood Potassium Urine Color Yellow Urine Appearance Sl cloudy Urine pH 6.0 Ur Specific [place] 1.020 Urine Protein 30 H Urine Glucose (UA) >=1000 Urine Ketones Trace H Urine Blood Moderate H Urine Nitrate Negative Urine Bilirubin Small H Urine Urobilinogen 1.0 H Ur Leukocyte Esterase Negative Urine RBC 2 - 5 Urine WBC 0 - 2 Ur Epithelial Cells None Urine Bacteria Large Influenza Typ A,B (EIA) 11/18/17 11/18/17 11/18/17 21:20 21:20 23:25 WBC 24.6 H RBC 4.47 Hgb 13.3 L Hct 39.8 L MCV 89.0 MCH 29.8 MCHC 33.4 RDW 14.4 Plt Count 135 MPV 10.0 Gran % 89.9 H Lymph % (Auto) 4.9 L [place] % (Auto) 5.1 Eos % (Auto) 0.0 L Baso % (Auto) 0.1 Gran # 22.14 H Lymph # (Auto) 1.2 [place] # (Auto) 1.3 H Eos # (Auto) 0.0 Baso # (Auto) 0.03 pCO2 pO2 59 H HCO3 ABG pH ABG Total CO2 ABG O2 Saturation ABG Base Excess ABG Potassium VBG pH 7.43 VBG pCO2 37.0 L VBG HCO3 24.6 VBG Total CO2 25.7 VBG O2 Sat (Calc) 94.5 H VBG Base Excess 0.5 VBG Potassium 3.9 Sodium 131.0 L Chloride 100.0 Glucose 172 H Lactate 1.8 FiO2 21.0 Potassium Carbon Dioxide Anion Gap BUN Creatinine Est GFR ( Amer) Est GFR (Non-Af Amer) POC Glucose (mg/dL) 220 H Random Glucose Hemoglobin A1c Lactic Acid Calcium Total Creatine Kinase Troponin I Triglycerides Cholesterol LDL Cholesterol Direct HDL Cholesterol Procalcitonin Arterial Blood Potassium Venous Blood Potassium 3.9 Urine Color Urine Appearance Urine pH Ur Specific [place] Urine Protein Urine Glucose (UA) Urine Ketones Urine Blood Urine Nitrate Urine Bilirubin Urine Urobilinogen Ur Leukocyte Esterase Urine RBC Urine WBC Ur Epithelial Cells Urine Bacteria Influenza Typ A,B (EIA) 11/18/17 11/19/17 11/19/17 23:25 00:20 00:20 WBC RBC Hgb Hct MCV MCH MCHC RDW Plt Count MPV Gran % Lymph % (Auto) [place] % (Auto) Eos % (Auto) Baso % (Auto) Gran # Lymph # (Auto) [place] # (Auto) Eos # (Auto) Baso # (Auto) pCO2 35 pO2 71.0 L HCO3 20.2 L ABG pH 7.37 ABG Total CO2 21.3 L ABG O2 Saturation 96.7 ABG Base Excess -4.4 L ABG Potassium 4.0 VBG pH VBG pCO2 VBG HCO3 VBG Total CO2 VBG O2 Sat (Calc) VBG Base Excess VBG Potassium Sodium 129.0 L 130 L Chloride 99.0 99 Glucose 248 H Lactate 1.9 FiO2 40.0 Potassium 4.2 Carbon Dioxide 20 L Anion Gap 16 BUN 45 H Creatinine 2.5 H Est GFR ( Amer) 31 Est GFR (Non-Af Amer) 26 POC Glucose (mg/dL) Random Glucose 228 H Hemoglobin A1c Lactic Acid Calcium 9.0 Total Creatine Kinase Troponin I 0.45 H* Triglycerides Cholesterol LDL Cholesterol Direct HDL Cholesterol Procalcitonin 17.66 H Arterial Blood Potassium 4.0 Venous Blood Potassium Urine Color Urine Appearance Urine pH Ur Specific [place] Urine Protein Urine Glucose (UA) Urine Ketones Urine Blood Urine Nitrate Urine Bilirubin Urine Urobilinogen Ur Leukocyte Esterase Urine RBC Urine WBC Ur Epithelial Cells Urine Bacteria Influenza Typ A,B (EIA) 11/19/17 11/19/17 11/19/17 05:16 05:30 05:30 WBC RBC Hgb Hct MCV MCH MCHC RDW Plt Count MPV Gran % Lymph % (Auto) [place] % (Auto) Eos % (Auto) Baso % (Auto) Gran # Lymph # (Auto) [place] # (Auto) Eos # (Auto) Baso # (Auto) pCO2 34 L pO2 75.0 L HCO3 19.2 L ABG pH 7.36 ABG Total CO2 20.2 L ABG O2 Saturation 97.3 ABG Base Excess -5.4 L ABG Potassium 3.9 VBG pH VBG pCO2 VBG HCO3 VBG Total CO2 VBG O2 Sat (Calc) VBG Base Excess VBG Potassium Sodium 132.0 Chloride 101.0 Glucose 254 H Lactate 1.7 FiO2 40.0 Potassium Carbon Dioxide Anion Gap BUN Creatinine Est GFR ( Amer) Est GFR (Non-Af Amer) POC Glucose (mg/dL) Random Glucose Hemoglobin A1c 7.3 H D Lactic Acid Calcium Total Creatine Kinase Troponin I 0.44 H* Triglycerides 140 Cholesterol 113 L LDL Cholesterol Direct 33 HDL Cholesterol 21 L Procalcitonin Arterial Blood Potassium 3.9 Venous Blood Potassium Urine Color Urine Appearance Urine pH Ur Specific [place] Urine Protein Urine Glucose (UA) Urine Ketones Urine Blood Urine Nitrate Urine Bilirubin Urine Urobilinogen Ur Leukocyte Esterase Urine RBC Urine WBC Ur Epithelial Cells Urine Bacteria Influenza Typ A,B (EIA) 11/19/17 11/19/17 11/19/17 07:40 08:26 09:57 WBC RBC Hgb Hct MCV MCH MCHC RDW Plt Count MPV Gran % Lymph % (Auto) [place] % (Auto) Eos % (Auto) Baso % (Auto) Gran # Lymph # (Auto) [place] # (Auto) Eos # (Auto) Baso # (Auto) pCO2 pO2 HCO3 ABG pH ABG Total CO2 ABG O2 Saturation ABG Base Excess ABG Potassium VBG pH VBG pCO2 VBG HCO3 VBG Total CO2 VBG O2 Sat (Calc) VBG Base Excess VBG Potassium Sodium Chloride Glucose Lactate FiO2 Potassium Carbon Dioxide Anion Gap BUN Creatinine Est GFR ( Amer) Est GFR (Non-Af Amer) POC Glucose (mg/dL) 209 H Random Glucose Hemoglobin A1c Lactic Acid Calcium Total Creatine Kinase 170 Troponin I Triglycerides Cholesterol LDL Cholesterol Direct HDL Cholesterol Procalcitonin Arterial Blood Potassium Venous Blood Potassium Urine Color Urine Appearance Urine pH Ur Specific [place] Urine Protein Urine Glucose (UA) Urine Ketones Urine Blood Urine Nitrate Urine Bilirubin Urine Urobilinogen Ur Leukocyte Esterase Urine RBC Urine WBC Ur Epithelial Cells Urine Bacteria Influenza Typ A,B (EIA) Pos for influenza a H 11/19/17 14:00 WBC RBC Hgb Hct MCV MCH MCHC RDW Plt Count MPV Gran % Lymph % (Auto) [place] % (Auto) Eos % (Auto) Baso % (Auto) Gran # Lymph # (Auto) [place] # (Auto) Eos # (Auto) Baso # (Auto) pCO2 pO2 HCO3 ABG pH ABG Total CO2 ABG O2 Saturation ABG Base Excess ABG Potassium VBG pH VBG pCO2 VBG HCO3 VBG Total CO2 VBG O2 Sat (Calc) VBG Base Excess VBG Potassium Sodium Chloride Glucose Lactate FiO2 Potassium Carbon Dioxide Anion Gap BUN Creatinine Est GFR ( Amer) Est GFR (Non-Af Amer) POC Glucose (mg/dL) Random Glucose Hemoglobin A1c Lactic Acid Calcium Total Creatine Kinase Troponin I 0.33 H* D Triglycerides Cholesterol LDL Cholesterol Direct HDL Cholesterol Procalcitonin Arterial Blood Potassium Venous Blood Potassium Urine Color Urine Appearance Urine pH Ur Specific [place] Urine Protein Urine Glucose (UA) Urine Ketones Urine Blood Urine Nitrate Urine Bilirubin Urine Urobilinogen Ur Leukocyte Esterase Urine RBC Urine WBC Ur Epithelial Cells Urine Bacteria Influenza Typ A,B (EIA)
--- NOTE | 2017-11-19 18:19 | CARD ---
APPROVED REPORT EKG Measurement Heart [id number] <Conclusion> Atrial fibrillation with rapid ventricular response Low voltage QRS Incomplete right bundle branch block Abnormal ECG
--- NOTE | 2017-11-19 20:22 | US ---
PROCEDURE: Lower extremity YA exam HISTORY: Peripheral vascular disease with pain and ulceration. Diabetes. Smoker. PHYSICIAN(S): Riccardo Rodrigez MD. FINDINGS: The resting YA's are normal: right, 1.21and left, 1.51. The brachial systolic pressures are symmetric. The low thigh pressures and waveforms are relatively normal. The calf PVR waveforms augment normally. No significant gradients are noted across the thighs. The ankle and metatarsal waveforms are relatively normal and symmetric. No significant pressure gradients are noted across the lower legs. IMPRESSION: 1. Relatively normal YA and PVR examination at rest.
--- NOTE | 2017-11-19 21:54 | CON ---
DATE: 11/19/2017 CARDIOLOGY CONSULTATION HISTORY OF PRESENT ILLNESS: The patient is a 72-year-old male who presents with sepsis due to an abscess in the lower extremity. There is evidence for gangrene in the lower extremity. PAST MEDICAL HISTORY: Includes diabetes mellitus. No hypertension or hypercholesterolemia noted. The patient suffers from severe peripheral vascular disease. The patient does not smoke, but does admit to smoking cigars occasionally. He denies chest pain, denies shortness of breath, denies ever having previous cardiac issues. REVIEW OF SYSTEMS: Fourteen-point review of systems is free of cardiac symptomatology. PHYSICAL EXAMINATION: VITAL SIGNS: Blood pressure is 135/80, the heart rate is in the 80s. NECK: Negative JVD. LUNGS: Without rales. HEART: Reveals S1, S2. EXTREMITIES: Bandage in the right lower extremity. EKG shows sinus rhythm with frequent APCs. Hemoglobin is 13, white count is 24,000. Chemistries, troponins are 0.45 with a BUN and creatinine of 45 and 2.5. The glucose is 228. IMPRESSION: 1. Sepsis. 2. Gangrene and foot abscess. 3. Diabetes mellitus. 4. [id number]-[id number] myocardial infarction. 5. Renal insufficiency. 6. Peripheral vascular disease. PLAN: Given these findings, the patient is at increased risk for planned surgery today. The surgery, although at high risk, is necessary to help his source of sepsis. We will start the patient on beta-blockers to help protect his heart. Riccardo Whitehead MD
[2017-11-20] MEDS: Levalbuterol 0.63 MG/3 ML Inhal Soln UD IH SCH ×4 (01:29→21:12)
[2017-11-20] MEDS: Insulin Reg-MEDIUM-Coverage SC SCH ×3 (05:01→11:36)
[2017-11-20] MEDS: Sodium Chloride 0.9% 1,000 ML IV SCH ×2 (05:02→14:40)
[2017-11-20] MEDS: Pantoprazole 40 mg EC Tab PO SCH (05:22)
[2017-11-20 07:02] LABS: BASO # 0.05 K/mm3 (0.0-2.0); BASO % 0.2 % (0.0-3.0); GRAN # 22.22 (1.4-6.5); GRAN % 88.7 % (50.0-68.0); HEMOGLOBIN 13.4 g/dL (14.0-18.0); LYMPH # 1.8 (1.2-3.4); LYMPH % 7.1 % (22.0-35.0); MEAN CELL VOLUME 90.1 fl (80.0-105.0); MEAN CORPUSCULAR HEMOGLOBIN 29.5 pg (25.0-35.0); MEAN CORPUSCULAR HGB CONC 32.7 g/dl (31.0-37.0); MEAN PLATELET VOLUME 10.9 fl (7.0-11.0); RBC 4.55 10^6/uL (3.5-6.1); RED CELL DISTRIBUTION WIDTH 14.8 % (11.5-14.5)
[2017-11-20 07:22] LABS: WHITE BLOOD COUNT 25.1 10^3/ul (4.5-11.0)
[2017-11-20 07:58] LABS: ALB/GLOB RATIO 0.7 (1.1-1.8); ALBUMIN 2.6 g/dL (3.0-4.8); CALCIUM 8.6 mg/dL (8.4-10.5)
--- NOTE | 2017-11-20 08:45 | HP ---
HISTORY OF PRESENT ILLNESS: He comes into the emergency room complaining of fever of 103. He has a draining ulcer on the right plantar foot with foul smell and purulent discharge, also erythematous raised rash. He was on a cruise ship home and came back to the hospital. He has a diabetic right plantar foot ulcer with purulent discharge foul smelling and 103 temperature, also severe erythematous raised rash over his body. PAST MEDICAL HISTORY: Hypertension, respiratory disorders, he had 5 broken ribs and scar tissue of the right lung, he wears glasses, type 2 diabetes, psoriasis history. He had right toe amputation, hypertension in the family. SOCIAL HISTORY: He is a former smoker, quit 30 years ago, still drinks alcohol. No drugs. ALLERGIES: KIWI, STRAWBERRY, AND RASPBERRY. MEDICATIONS: He is on NovoLog, Zocor, Invokana, Lantus, Victoza, Glucophage, vitamins, Prinzide. REVIEW OF SYSTEMS: He is fatigued, fevers. No short of breath or cough. No chest pain or palpitations. No abdominal pain. No diarrhea, nausea, vomiting, constipation. No problems urinating. No back pain or neck pain. He has got a rash and ulcer. No headaches or dizziness. A little bit nervous. PHYSICAL EXAMINATION: VITAL SIGNS: He has a 103.1 temp, 102 pulse, 22 respiratory rate, 111/59 blood pressure, 98% O2 sat. GENERAL: He has ill-appearing, not feeling well. Alert and oriented x3. HEENT: Head is atraumatic, normocephalic. Extraocular muscles are intact. Pupils equal and reactive to light. Throat is moist. NECK: Supple. HEART: Regular rate. Normal S1 and S2. LUNGS: Decreased breath sounds, but clear to auscultation bilaterally. No wheezes, no rhonchi, no rales. ABDOMEN: Soft, nontender. Positive bowel sounds. No guarding or rebound. No CVA tenderness. EXTREMITIES: He has a right plantar foot 1 cm ulcer with foul smelling purulent discharge and great toe amputation, erythematous, tender, swollen foot. NEUROLOGICAL: GCS is 15. Cranial nerves II through XII grossly intact. Alert and oriented x3. SKIN: He has had diffuse psoriatic rash, diffuse urticarial rash, plantar surface of the right foot, there is a 1-cm ulcer with drainage, foul-smelling. LYMPHATICS: Thyroid midline. No palpable appreciable lymphadenopathy. LABORATORY DATA: He has multiple tests done. He has a 21,000 white count, went up to 24,000; 13.3 hemoglobin, 39.8 hematocrit, with a 135 platelets. He has a 1.09 INR. His lactate is 3.2. He has a 130 sodium, potassium is 4.2, BUN is 45, creatinine 2.5, it is getting worse . GFR is 26, sugar is 209. His troponins are 0.45 and 0.44, elevated, we will have Cardiology consult. Triglycerides are 140. Urine shows a UTI. Positive for influenza. Chest x-ray was clear. ASSESSMENT AND PLAN: He is currently on Xopenex, Tylenol, IV fluids, Merrem IV, Lopressor, Benadryl, aspirin, daptomycin IV, insulin, and we will put him on Tamiflu. I am quite concerned about him; he has got multiple issues going on, had multiple consults. He has Infectious Disease, Podiatry, Cardiology, Rehabilitation Services Counselor, Renal, Dermatology. I will be aggressive with this young man. He has got multiple issues from sepsis, positive troponin, urinary tract infection, renal insufficiency to influenza. Continue aggressive treatment and care. Also with a very bad ulcer of the foot. Reagan Mendez DO [facility]
[2017-11-20] MEDS: Meropenem IV 1 gm in NS 50 ML IVPB SCH ×2 (10:44→22:05)
--- NOTE | 2017-11-20 11:19 | CARD ---
APPROVED REPORT EXAM: Two-dimensional and M-mode echocardiogram with Doppler and color Doppler. Other Information Quality : AverageRhythm : INDICATION Congestive Heart Failure 2D DIMENSIONS Left Atrium (2D)4.1 (1.6-4.0cm)IVSd1.3 (0.7-1.1cm) LVDd4.2 (3.9-5.9cm)LVOT Diameter2.1 (1.8-2.4cm) PWd1.3 (0.7-1.1cm)LVDs2.8 (2.5-4.0cm) FS (%) 34.7 %LVEF (%)64.0 (>50%) M-Mode DIMENSIONS Aortic Root3.10 (2.2-3.7cm)Aortic Cusp Exc.0.50 (1.5-2.0cm) Aortic Valve AoV Peak Njgllykg933.0cm/Edson Peak GR.13mmHgLVOT Peak Ftgcsosm66.8cm/s LVOT VTI22.00cmAVA (VMAX)1.75cm2 Mitral Valve MV E Msiemgkb188.0cm/sMV A Yfyyhron52.8cm/sE/A ratio1.1 TDI E/Lateral E'0.0E/Medial E'0.0 Tricuspid Valve TR Peak [id number]/sRAP [id number] Peak Gr.15mmHg [id number] LEFT VENTRICLE The left ventricle is normal size. There is mild concentric left ventricular hypertrophy. The left ventricular function is normal. The left ventricular ejection fraction is within the normal range. There is normal LV segmental wall motion. RIGHT VENTRICLE The right ventricle is normal size. ATRIA The left atrium is mildly dilated. The right atrium size is normal. The interatrial septum is intact with no evidence for an atrial septal defect. AORTIC VALVE The aortic valve is moderately to severely calcified. There is trace to mild aortic regurgitation. MITRAL VALVE The MV leaflets are thickened with an polypoid echo dense structure which moves with the anterior leaflet, c/w vegetation. Mitral annular calcification is severe. TRICUSPID VALVE The tricuspid valve is normal in structure. There is trace to mild tricuspid regurgitation. PULMONIC VALVE The pulmonic valve is not well visualized. GREAT VESSELS The aortic root is normal in size. PERICARDIAL EFFUSION There is no pericardial effusion. <Conclusion> The left ventricle is normal size. There is mild concentric left ventricular hypertrophy. The left ventricular function is normal. The aortic valve is moderately to severely calcified. There is trace to mild aortic regurgitation. The MV leaflets are thickened with an polypoid echo dense structure which moves with the anterior leaflet, c/w vegetation. There is trace to mild tricuspid regurgitation. Study C/W endocarditis involving the MV. Suggest clinical correlation.
--- NOTE | 2017-11-20 11:29 | PN ---
DATE: 11/20/2017 SUBJECTIVE: The patient is seen and examined at bedside. He is comfortable. He talks full sentences. He is not in respiratory or otherwise distress. He just finished his breakfast and was satisfied with it. He is comfortable. PHYSICAL EXAMINATION: VITAL SIGNS: Heart rate 73, blood pressure 116/67, oxygen saturation 96% on 2 L nasal cannula, respiratory rate 16. ENT: Head and neck atraumatic. LUNGS: Clear to auscultation bilaterally. HEART: Regular rate and rhythm. S1 and S2 normal. ABDOMEN: Soft, nontender and nondistended. MUSCULOSKELETAL: The patient is status post I and D of right foot abscess by Podiatry Service. SKIN: Moist. PSYCH: The patient is alert, awake and oriented x3. LABORATORY DATA: WBC 25.1, hemoglobin 13.4, platelet count 133. Sodium 135, potassium 4.4, chloride 103, carbon dioxide 22, BUN 62, creatinine 1.8 down from 2.5 (the patient never had intermittent hemodialysis), glucose 318, AST 46, ALT 62, total bilirubin 0.8. Troponin 0.33 down from 0.44, albumin 2.6. MEDICATIONS: Tylenol p.o. p.r.n., aspirin, daptomycin, Benadryl, Levemir 20 units subcu q. 12, regular insulin sliding scale medium protocol, Xopenex p.r.n., Xopenex q. 6, meropenem, metoprolol, Tamiflu, Protonix, normal saline 125 mL/hour. ASSESSMENT AND PLAN: This is 72-year-old gentleman who presented with severe sepsis secondary to right foot cellulitis in the setting of poorly-controlled diabetes complicated by multiorgan system failure including acute kidney injury, septic cardiomyopathy. The patient is status post I and D of right foot abscess. His clinical situation is substantially improved. He is afebrile. However, still has leukocytosis. He is on daptomycin and meropenem. Infectious Disease service is following him as well. He tolerates oral nutrition. His creatinine is trending down. The patient had 1600 mL u/o over the last 12 hours. Blood culture is negative. Wound culture is nonrevealing yet. The patient is positive for influenza and is currently on Tamiflu at a renal adjusted dose. We will continue target euvolemia, glycemia, normothermia and oxygen saturation more than 90%. He does have a chest pain. His heart rate is well-controlled. His troponin is trending down. Dr. Whitehead, his church history professor is also following him as well. ccm time 40 min Romel Blackwell MD MTDMarisela
--- NOTE | 2017-11-20 13:50 | CP.PCM.PN ---
Subjective - Date & Time of Evaluation Date of Evaluation: 11/20/17 Time of Evaluation: 13:48 - Subjective Subjective: Nephrology Consultation Note: Assessment: critical Acute Kidney Injury (N17.9) likely due to ATN due to sepsis, hypotension/shock: improving Influenza A DM, HTN (I12.0) active cigar smoker, obesity sepsis with GPC with Rt foot infection Hyponatremia Plan No acute need for renal replacement therapy at this time. maintain hemodynamics stable. Patient not on ACEI/ARB due to ROHINI Monitor Input/Output, daily weights and renal function with basic metabolic panel continue with IVF Check urine analysis, spot protein/creatinine and albumin/creatinine ratio, renal sonogram. DC Ibrahmi at the earliest when possible Dose meds/antibiotics for reduced GFR. Avoid fleets enema/magnesium based laxatives. Avoid nephrotoxins/NSAIDs/ iodinated contrast (unless needed emergently) Glycemic control pt encouraged to stop smoking And loose weight Further work up/management as per primary team Thanks for allowing me to participate in care of your patient. Will follow patient with you. Please call if any Qs Dr Caden Muller Office: [phone] Chief Complaint: foot infection HPI: Pt is a 72 M with hx of diabetes Mellitus (9 years), hypertension (years) , active cigar smoker, obesity and Rt foot infection presented with complaints of Rt foot wound infection with sepsis and also with Influenza. renal consult for ROHINI eval. pt not aware about prior hx of renal disease in past. his cr 1.1 in 2017 Denies OTC/herbal meds or NSAIDs No recent iodinated contrast exposure.noted episodes of low BP. ROS: Cardiovascular: No chest pain. Pulmonary: No shortness of breath Gastrointestinal: denies abdominal pain No nausea. No vomiting. Genitourinary: No pain while urinating. Denies blood in urine. All other negative except as mentioned in HPI Physical Examination: General Appearance: Comfortable, in no acute respiratory distress, co-operative . obese Vitals reviewed and noted as below Head; Atraumatic, normocephalic ENT: no ulcers no thrush. Tongue is midline. Oropharynx: no rash or ulcers. EYES: Pupils are equal, round and reactive to light accommodation. Eye muscles and extraocular movement intact. Sclera is anicteric. Neck; supple no lymphadenopathy, no thyromegaly or bruit Lungs: Normal respiratory rate/effort. Breath sounds bilateral equal and clear Heart: Normal rate. s1s2 normal. No rub or gallop. Extremities: Rt pedal edema. No varicose veins. Rt foot dressed. pedal pulses diminished Neurological: Patient is alert, awake and oriented to person, place and time. No focal deficit. Strength bilateral appropriate and equal Skin: Warm and dry. Normal turgor. No rash. Palpitation: Normal elasticity for age Abdomen: Abdomen is soft. Bowel sounds +. There is no abdominal tenderness, no guarding/rigidity no organomegaly Psych: normal insight and normal affect/mood MSK: no joint tenderness or swelling. Digits and nails normal, no deformity : kidney or bladder not palpable Labs/imaging reviewed. Past medical history, past surgical history, family history, social history, allergy reviewed and noted as below Family hx: no hx of CKD. Rest non-contributory workup: renal SONO: WNL CPK normal UA 30 protein moderate blood and 4+ glucose Objective - Vital Signs/Intake and Output Vital Signs (last 24 hours): Temp Pulse Resp BP Pulse Ox 97.9 F 71 14 123/64 96 11/19/17 08:17 11/20/17 10:43 11/20/17 07:00 11/20/17 10:43 11/20/17 07:00 Intake and Output: 11/20/17 11/20/17 06:59 18:59 Intake Total 2000 Output Total 1500 Balance 500 - Medications Medications: Current Medications Acetaminophen (Tylenol 325mg Tab) 650 mg PO Q6H PRN PRN Reason: Fever >100.4 F Aspirin (Aspirin Chewable) 81 mg PO DAILY [facility] Last Admin: 11/20/17 10:43 Dose: 81 mg Diphenhydramine HCl (Benadryl) 25 mg IVP Q6 PRN PRN Reason: Rash Meropenem (Merrem Iv 1 Gm Premix) 50 mls @ 100 mls/hr IVPB Q12 [facility] PRN Reason: Protocol Stop: 11/27/17 20:01 Last Admin: 11/20/17 10:44 Dose: 100 mls/hr Sodium Chloride (Sodium Chloride 0.9%) 1,000 mls @ 125 mls/hr IV .Q8H [facility] Last Admin: 11/20/17 05:02 Dose: 125 mls/hr Daptomycin 730 mg/ Sodium (Chloride) 100 mls @ 200 mls/hr IV DAILY [facility] PRN Reason: Protocol Stop: 11/25/17 10:01 Last Admin: 11/20/17 10:44 Dose: 200 mls/hr Insulin Detemir (Levemir) 34 unit SC HS [facility] Insulin Human Lispro (Humalog Low) 0 units SC ACHS [facility] PRN Reason: Protocol Insulin Human Lispro (Humalog) 12 units SC AC [facility] Levalbuterol HCl (Xopenex) 0.63 mg IH [id number] [facility] Last Admin: 11/20/17 13:27 Dose: 0.63 mg Levalbuterol HCl (Xopenex) 1.25 mg IH [id number] PRN PRN Reason: Shortness of Breath Metoprolol Tartrate (Lopressor) 25 mg PO BID [facility] Last Admin: 11/20/17 10:43 Dose: 25 mg Oseltamivir Phosphate (Tamiflu) 30 mg PO DAILY [facility] PRN Reason: Protocol Last Admin: 11/20/17 10:45 Dose: 30 mg Oxycodone/Acetaminophen (Percocet 5/325 Mg Tab) 1 tab PO Q4H PRN PRN Reason: Pain, moderate (4-7) Stop: 11/22/17 13:14 Oxycodone/Acetaminophen (Percocet 5/325 Mg Tab) 2 tab PO Q4H PRN PRN Reason: Pain, severe (8-10) Stop: 11/22/17 13:14 Last Admin: 11/20/17 05:24 Dose: 2 tab Pantoprazole Sodium (Protonix Ec Tab) 40 mg PO 0600 [facility] Last Admin: 11/20/17 05:22 Dose: 40 mg - Labs Labs: 11/20/17 05:45 11/20/17 05:45 PT 12.5 SECONDS (9.4-12.5) 11/18/17 17:25 INR 1.09 (0.93-1.08) H 11/18/17 17:25 APTT 21.2 Seconds (25.1-36.5) L 11/18/17 17:25
--- NOTE | 2017-11-20 14:47 | PN ---
DATE: 11/20/2017 SUBJECTIVE: He had a debridement of his right foot yesterday. He is comfortable in bed. No chest pain, no shortness of breath, no abdominal pain. Slept well. PHYSICAL EXAMINATION VITAL SIGNS: He has 97.9 temperature, 69 pulse, 129/68 blood pressure, 14 respiratory rate, 96% O2 sat. HEENT: Head is atraumatic and normocephalic. HEART: Regular rate. LUNGS: Decreased breath sounds, but clear. ABDOMEN: Soft and obese. EXTREMITIES: Right foot is bandaged. LABORATORY DATA: He has 135 sodium, potassium 4.4, BUN 62, creatinine 1.8. Blood sugar is 318, it has been as high as 417. I put him back 40 units at night and called in filler in, Dr. Murdock. Calcium is 8.6, total bilirubin is 0.8. AST is 46, ALT is 62, alkaline phosphatase 183. His last troponin was 0.33, it is coming down, it was high as 0.45. Total protein is 6, albumin is 2.6. He has a 25.1 white count, it is going up. Infectious Disease is on the case, on IV antibiotics. Hemoglobin 13.4, hematocrit 41, platelets are 133,000. Lactate down to 1.7, it was as high as 3.2 when he came in. influenza, sepsis, positive troponins, urinary tract infection, influenza, renal insufficiency, right foot ulcer. He is being seen by Renal, Podiatry, Infectious Disease, Cardiology. I am going to call in Endocrinology, going to check his labs tomorrow. I put him back on his Lantus 40 units at nighttime. Continue aggressive treatment and care in the Intensive Care Unit. Reagan Mendez DO MTDMarisela
--- NOTE | 2017-11-20 14:55 | CP.PCM.PN ---
Subjective - Date & Time of Evaluation Date of Evaluation: 11/20/17 Time of Evaluation: 10:00 - Subjective Subjective: Comfortable in bed, less pain in the right foot, no fevers overnight. Objective - Vital Signs/Intake and Output Vital Signs (last 24 hours): Temp Pulse Resp BP Pulse Ox 97.9 F 69 14 129/68 96 11/19/17 08:17 11/20/17 07:00 11/20/17 07:00 11/20/17 07:00 11/20/17 07:00 Intake and Output: 11/20/17 11/20/17 06:59 18:59 Intake Total 2000 Output Total 1500 Balance 500 - Medications Medications: Current Medications Acetaminophen (Tylenol 325mg Tab) 650 mg PO Q6H PRN PRN Reason: Fever >100.4 F Aspirin (Aspirin Chewable) 81 mg PO DAILY [facility] Last Admin: 11/19/17 10:02 Dose: 81 mg Diphenhydramine HCl (Benadryl) 25 mg IVP Q6 PRN PRN Reason: Rash Meropenem (Merrem Iv 1 Gm Premix) 50 mls @ 100 mls/hr IVPB Q12 [facility] PRN Reason: Protocol Stop: 11/27/17 20:01 Last Admin: 11/19/17 21:19 Dose: 100 mls/hr Sodium Chloride (Sodium Chloride 0.9%) 1,000 mls @ 125 mls/hr IV .Q8H [facility] Last Admin: 11/20/17 05:02 Dose: 125 mls/hr Daptomycin 730 mg/ Sodium (Chloride) 100 mls @ 200 mls/hr IV DAILY [facility] PRN Reason: Protocol Stop: 11/25/17 10:01 Insulin Detemir (Levemir) 20 unit SC Q12 [facility] Insulin Human Regular (Humulin R Med) 0 units SC ACHS [facility] PRN Reason: Protocol Last Admin: 11/20/17 08:09 Dose: 7 units Levalbuterol HCl (Xopenex) 0.63 mg IH [id number] [facility] Last Admin: 11/20/17 07:08 Dose: 0.63 mg Levalbuterol HCl (Xopenex) 1.25 mg IH [id number] PRN PRN Reason: Shortness of Breath Metoprolol Tartrate (Lopressor) 25 mg PO BID [facility] Last Admin: 11/19/17 17:28 Dose: 25 mg Oseltamivir Phosphate (Tamiflu) 30 mg PO DAILY [facility] PRN Reason: Protocol Last Admin: 11/19/17 11:30 Dose: 30 mg Oxycodone/Acetaminophen (Percocet 5/325 Mg Tab) 1 tab PO Q4H PRN PRN Reason: Pain, moderate (4-7) Stop: 11/22/17 13:14 Oxycodone/Acetaminophen (Percocet 5/325 Mg Tab) 2 tab PO Q4H PRN PRN Reason: Pain, severe (8-10) Stop: 11/22/17 13:14 Last Admin: 11/20/17 05:24 Dose: 2 tab Pantoprazole Sodium (Protonix Ec Tab) 40 mg PO 0600 [facility] Last Admin: 11/20/17 05:22 Dose: 40 mg - Labs Labs: 11/20/17 05:45 11/20/17 05:45 PT 12.5 SECONDS (9.4-12.5) 11/18/17 17:25 INR 1.09 (0.93-1.08) H 11/18/17 17:25 APTT 21.2 Seconds (25.1-36.5) L 11/18/17 17:25 - Constitutional Appears: Chronically Ill - Head Exam Head Exam: NORMAL INSPECTION - ENT Exam ENT Exam: Mucous Membranes Moist - Neck Exam Neck Exam: absent: Meningismus - Respiratory Exam Respiratory Exam: Decreased Breath Sounds - Cardiovascular Exam Cardiovascular Exam: +S1, +S2 - GI/Abdominal Exam GI & Abdominal Exam: Soft. 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
--- NOTE | 2017-11-20 15:11 | PN ---
DATE: 11/20/2017 CARDIOLOGY FOLLOWUP SUBJECTIVE: The patient is comfortable in bed without shortness of breath. He is eating. PHYSICAL EXAMINATION: VITAL SIGNS: Blood pressure is 123/64, the heart rates in the 70s. NECK: Negative JVD. LUNGS: Without rales. HEART: Reveals S1, S2 with a 2/6 systolic ejection murmur. EXTREMITIES: With bandage in the right lower extremity. LABORATORY DATA: Hemoglobin is 13.4, white count is 25.1. Chemistries, BUN and creatinine are 62 and 1.8 with a glucose of 393. IMPRESSION: 1. Sepsis from the lower extremity abscess. 2. 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 3. Diabetes mellitus. 4. Non-ST elevation myocardial infarction. 5. Renal insufficiency. 6. Peripheral vascular disease. Given these findings, so far there is no hemodynamic compromise with a vegetation in the mitral valve. We will need to follow that closely. The patient is currently being treated with positive blood cultures with IV antibiotics. We will repeat an echocardiogram in a couple of weeks. I have discussed this in detail with the patient and his daughter. Riccardo Whitehead MD
[2017-11-20] MEDS: Insulin Lispro 1 UNITS/0.01 ML SC SCH (17:18)
[2017-11-20] MEDS: Insulin Lispro (humaLOG) LOW Coverage SC SCH ×2 (17:19→22:52)
--- NOTE | 2017-11-20 17:31 | PN ---
DATE: SUBJECTIVE: A 72-year-old male seen at bedside with his daughter present in ICU for continued evaluation and management of a severe right diabetic foot abscess, which required incision and drainage by Dr. Baron yesterday. The patient is resting comfortably and states he is feeling much better. PHYSICAL EXAMINATION: VITAL SIGNS: Reveal a temperature of 98.9, pulse rate of 76, blood pressure of 120/70, and a respiratory rate of 20. EXTREMITIES: Weakly palpable posterior tibial pulses noted bilaterally. Weakly palpable dorsalis pedis on the left and nonpalpable dorsalis pedis on the right secondary to +2 nonpitting edema. The incision site on the plantar aspect of the right foot presents with packing intact. Upon removal of packing, wound shows no evidence of purulent drainage. Incision site presents with red viable granulation tissue. There is a small incision on the dorsal aspect of the foot, which also presents with no purulence red blood flow. The entire forefoot, however, remains edematous and there is noted to be vascular congestion on the second toe as well as the hallux to a lesser degree. Capillary filling time is delayed on all of the digits. LABORATORY DATA: The patient's laboratory findings reveal a white count of 25.1, up from 24.6 yesterday. His hemoglobin is 13.4. His hematocrit is 41. His platelet count is 133. His ESR is elevated at 65. Microbiology report from the OR is pending; however, his blood cultures taken on 11/18/2017 reveal gram-positive cocci. ASSESSMENT: Severe diabetic right foot abscess, status post day #1 incision and drainage. PLAN: The patient's foot was examined. Packing was removed. Gentle manual pressure on the foot revealed only blood exiting the dorsal and plantar incision sites. There is no purulence noted. There was no malodor. There are no signs of ascending cellulitis. The wounds were flushed with copious amounts of normal sterile saline. The packing was reapplied using sterile half inch Iodoform packing. The foot was then dressed with sterile nonadherent gauze, sterile 4x4, abdominal pads, and Kerlix. We will continue with IV antibiotics as per Infectious Disease. The patient's daughter had many questions, all of which were answered. They were both told that we will have to wait and see as to whether the first and second toes are viable. They were both told that his white blood cell count has increased, which is normal after surgery and we will await cultures in the morning. We will keep the patient off weightbearing today and decide if weightbearing is to resume tomorrow. The patient will be seen and followed daily. Walker Chowdhury DPM MTDD
[2017-11-20 19:34] LABS: CREATININE,RANDOM URINE 51 mg/dL; TOTAL PROTEIN,RANDOM URINE 34 mg/L
[2017-11-20] MEDS ORDERED: Insulin Detemir 100 units/ml Vial (Levemir) SC SCH (22:00)
[2017-11-21] MEDS: Sodium Chloride 0.9% 1,000 ML IV SCH ×3 (02:00→16:27)
[2017-11-21] MEDS: Levalbuterol 0.63 MG/3 ML Inhal Soln UD IH SCH ×4 (04:03→20:12)
[2017-11-21] MEDS: Pantoprazole 40 mg EC Tab PO SCH (05:18)
[2017-11-21] MEDS ORDERED: Oxychlorosene Topical 2 gm Packet TOP ONE (06:00)
[2017-11-21 07:17] LABS: BASO # 0.06 K/mm3 (0.0-2.0); BASO % 0.3 % (0.0-3.0); EOS # 0.1 (0.0-0.7); EOS % 0.4 % (1.5-5.0); GRAN # 15.69 (1.4-6.5); GRAN % 84.4 % (50.0-68.0); HEMOGLOBIN 13.2 g/dL (14.0-18.0); LYMPH # 1.6 (1.2-3.4); LYMPH % 8.8 % (22.0-35.0); MEAN CELL VOLUME 91.1 fl (80.0-105.0); MEAN CORPUSCULAR HEMOGLOBIN 29.3 pg (25.0-35.0); MEAN CORPUSCULAR HGB CONC 32.2 g/dl (31.0-37.0); MEAN PLATELET VOLUME 10.5 fl (7.0-11.0); MONO # 1.1 (0.1-0.6); MONO % 6.1 % (1.0-6.0); RBC 4.5 10^6/uL (3.5-6.1); RED CELL DISTRIBUTION WIDTH 15.2 % (11.5-14.5); WHITE BLOOD COUNT 18.6 10^3/ul (4.5-11.0)
[2017-11-21 07:37] LABS: ALB/GLOB RATIO 0.7 (1.1-1.8); ALBUMIN 2.5 g/dL (3.0-4.8); CALCIUM 8.5 mg/dL (8.4-10.5)
[2017-11-21] MEDS: Insulin Lispro 1 UNITS/0.01 ML SC SCH ×2 (08:10→12:06)
[2017-11-21] MEDS: Insulin Lispro (humaLOG) LOW Coverage SC SCH ×5 (08:12→21:48)
--- NOTE | 2017-11-21 08:21 | OP ---
PROCEDURE DATE: 11/19/2017 SURGEON: Eileen Baron DPM. FILLER SIFTER MACHINE: Jose C Rodgers DPM, PGY-1. TYPE OF ANESTHESIA: IV sedation with local. ANESTHESIOLOGIST: Case Goodman DO. PREOPERATIVE DIAGNOSIS: Right foot infection with abscess. POSTOPERATIVE DIAGNOSIS: Right foot infection with abscess. NAME OF THE PROCEDURE: Right foot incision and drainage. INDICATION: The patient is a 72-year-old male with above diagnosis. Patient has a diabetic ulceration measuring approximately 2 cm x 2 cm x 0.3 cm that is foul smelling with abscess and purulent drainage. Patient has a fever upon admission and blood cultures preliminary with Gram-positive cocci growth. Patient's sepsis is most likely secondary to foot infection with abscess. The patient has exhausted all conservative treatment at this time and now requires surgical intervention. The patient signed the consent after careful explanation of risks, benefits, complications and alternatives for the surgical procedure. No guarantees were given nor implied. N.p.o. status was confirmed prior to taking the patient to the OR. PREPARATION: The patient was brought into the operating room and remained in the stretcher. Time-out was performed by identification of the correct patient and procedure. After induction of IV sedation, the patient received a total of 9 mL of a 2% lidocaine plain in a local block fashion distal to the second MPJ. Once local anesthesia was achieved, the right foot was then prepped and draped in the normal sterile manner and the procedure began. No tourniquet was used during the entire procedure. Attention was then directed to the patient's plantar right foot in which an ulceration was located at sub met 2 measuring approximately 2 cm x 2 cm x 0.3 cm. Wound base is mainly fibrotic with some necrotic tissue noted. Using a #10 blade, a longitudinal linear incision was extended from the PIPJ proximally down through the ulceration. The incision was deepened through the subcutaneous tissue using a #10 blade down to the level of the bone. A curved hemostat was then used to open up the surrounding soft tissue. Approximately 10 mL of purulent drainage was expressed from the surgical site. During this time, it was noted that the ulceration tunnels through the second PIPJ joint. Next, using a #10 blade, a longitudinal linear incision approximately 2 cm was made at the dorsum of the second PIPJ. Next, the entire right foot was exsanguinated with mixture of purulent and sanguineous blood expressed from the surgical site including the joint. Next, a wound culture was taken and sent to the pathology lab. All nonviable soft tissue was removed with a pickup and a #10 blade to more healthy tissue. Then, the surgical site was then flushed with pulse lavage and a copious amounts of mixture of gentamicin and sodium chloride 0.9% with a total of 3 liters. Surgical site was then left open. A 1 inch iodoform packing was packed. The surgical site was then dressed with sterile gauze, ABD and Kerlix with Webril, and light Coban. POSTOPERATIVE CONDITION: The patient tolerated the anesthesia and procedure well and was escorted back to the ICU with vital signs stable and neurovascular intact to the right foot. The patient is to nonweightbear to the right lower extremity and Podiatry will continue to follow up the patient in-house. Jose C Rodgers DPM Eileen Baron DPM MTDMarisela
--- NOTE | 2017-11-21 09:08 | CON ---
ENDOCRINOLOGY CONSULT DATE: 11/20/2017 LOCATION: In ICU, room 4 HISTORY OF PRESENT ILLNESS: This is a 72-year-old male with known history of type 2 insulin-requiring diabetes on combination therapy presenting here with an infected right hallux ulceration and associated gangrene of the right first ray and concomitant febrile episode with associated diffuse cutaneous rash and is now being referred for diabetic evaluation because of persistent hyperglycemic accelerations despite the current insulin regimen as ordered. PAST MEDICAL HISTORY: As mentioned above, history of type 2 insulin-requiring diabetes on a combination of Lantus taken as 40 units every morning with NovoLog given at the variable dose of 2 to 5 units with meals. He is also Victoza taken as 1.8 units subcutaneously once daily with metformin at 1 g b.i.d. and Invokana at 100 mg once daily, history of hypertensive cardiovascular disease, and dyslipidemia, currently on Zocor 20 mg daily and Prinzide at the combined dose of 10/12.5 once daily as given. He is also on Zocor at 20 mg daily as given. History of recent hypotension on admission and associated hypoxemia and developed supervening rapid atrial fibrillation and has been transferred to ICU for closer hemodynamic monitoring, prior history of infected right hallux ulceration with gangrene in the first ray and underwent amputation thereof as noted. He also has a history of hypertension and dyslipidemia as mentioned with significant autoimmune related psoriasis. He has a prior history of rib fractures from accidental traumatic injury. FAMILY HISTORY: Positive for hypertension and diabetes. SOCIAL HISTORY: The patient has supportive family. Previous history of nicotine dependence, but quit over 30 years ago as noted. REVIEW OF SYSTEMS: As mentioned above. Admits to generalized body weakness with easy fatigability and tiredness and suboptimal energy level with bifrontal headaches and supervening dizziness and lightheadedness, worse on the day of admission. No chest pains or palpitations, but admits to progressive shortness of breath especially on exertion. His oral intake has been variable with nausea, dyspepsia, and vague abdominal pain with marked polyuria and nocturia and polydipsia as noted. PHYSICAL EXAMINATION: GENERAL: This is an obese male in no apparent distress. VITAL SIGNS: Blood pressure of 150/90, pulse of 100 beats per minute and irregular, temperature 98, respirations 20, height is 6 feet, and height is 277 pounds. HEENT: Head is normocephalic. Eyes; anicteric with pink conjunctivae. Funduscopy not possible at this time. Ears, nose, and throat otherwise normal. NECK: Supple. Thyroid gland is normal in size. No carotid bruits or any cervical adenopathy. CARDIOPULMONARY: Some adynamic precordium. S1 and S2 is rapid and regular. LUNGS: Clear to auscultation. ABDOMEN: Obese and soft with positive bowel sounds. EXTREMITIES: There is a healed stump in the right hallux area from the recent amputation as noted. The pulses are +2 bilaterally. There is also neuropathic ulceration in the plantar surface of the right foot with purulent foul-smelling discharge as noted and underwent a recent incision and drainage procedure as noted thereof. LABORATORY DATA: Showed a WBC with 25.1, hemoglobin of 13, hematocrit 41, MCV 90, and platelets 133. The chemistry showed a BUN of 62, sodium 135, potassium 4.4, chloride 103, CO2 of 22, glucose 393, and creatinine 1.8. His hemoglobin A1c is 7.4%. The glucose levels have ranged from 318 to 348 and 417 mg/dL. ASSESSMENT: This is a 72-year-old male with uncontrolled and decompensated type 2 insulin-requiring diabetes with marked hyperglycemic accelerations related to subtherapeutic insulin regimen as given and presenting here with infected neuropathic plantar ulcer in the right foot and underwent a recent incision and drainage procedure. He also has diabetic microvascular complications of retinopathy, polyneuropathy and nephropathy with progressive renal insufficiency as noted thereof. Moreover, he has diabetic macrovascular complications of coronary artery disease with underlying cardiac tachyarrhythmias and recent rapid atrial fibrillation with significant peripheral arterial disease and vasculopathy and underwent a recent amputation of the right hallux area as noted thereof. Plan of management as discussed with the staff. We will modify his current insulin regimen to a more physiologic basal and bolus insulin drug combination, especially in the light of increased insulin resistance with marked insulin requirements thereof. We will start him with Levemir at a much higher dose of 34 units subcutaneously at bedtime daily to start tonight. We will discontinue the morning Levemir at this time, we will start him also on Humalog given as 12 units subcutaneously t.i.d. before meals to start at dinnertime today as ordered. We will modify the coverage scale to obviate hypoglycemia and detailed orders have been given. We will continue the IV hydration to optimize his fluid and electrolyte losses from the increased dysmorphic diuresis thereof. We will initiate diabetic education and dietary instructions also at the time of this admission. We will follow and advise accordingly. Carolyn Murdock MD
[2017-11-21] MEDS: Meropenem IV 1 gm in NS 50 ML IVPB SCH ×2 (09:54→22:17)
[2017-11-21] MEDS ORDERED: Insulin Detemir 100 units/ml Vial (Levemir) SC SCH (10:00)
--- NOTE | 2017-11-21 10:21 | PN ---
DATE: SUBJECTIVE: I saw him in the Intensive Care Unit. He is resting comfortably. He slept fairly well. He is in a fairly good spirits. Telling me he is feeling a little bit better. He has got a little bit of hungry and he does want to get out of bed to chair. PHYSICAL EXAMINATION: VITAL SIGNS: He has a 97.9 temp, 65 pulse, 108/53 blood pressure, 16 respiratory rate and 100% O2 sat on oxygen. HEENT: His head is atraumatic, normocephalic. Throat is moist. NECK: Supple. HEART: Regular rate. LUNGS: Decreased breath sounds, but clear. ABDOMEN: Soft, obese, nontender. No guarding. No rebound. EXTREMITIES: He has a right foot is bandaged from an ulcer. MEDICATIONS: He is on aspirin, Benadryl, daptomycin, insulin, Levemir, Lopressor, Merrem IV, Percocet, pantoprazole, IV fluids, Tamiflu, Tylenol, Xopenex. LABORATORY DATA: He has a 139 sodium, potassium 4.6, BUN is 46, creatinine 1.5, GFR is 46, sugar is 223, calcium is 8.5, total bili is 0.5, AST is 63, ALT is 71, alk phos 168. He has a white count is finally coming down, it was as high as 25.1, it is 18.6 today. Hopefully, it will continue to decline. Hemoglobin 13.2, hematocrit 41, platelets of 153. On micro, a gram-positive cocci. He had Staph aureus and coag-negative Staph in the blood culture. 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 He has sepsis and lower extremity abscess, endocarditis, diabetes mellitus, [id number] myocardial infarction, renal insufficiency, peripheral vascular disease, urinary tract infection and a right foot ulcer. We will check his labs and get him out of bed to chair. Reagan Mendez DO
--- NOTE | 2017-11-21 13:18 | CP.PCM.PN ---
Subjective - Date & Time of Evaluation Date of Evaluation: 11/21/17 Time of Evaluation: 10:10 - Subjective Subjective: Less pain in the right foot, no fevers, not in distress, no diarrhea. Objective - Vital Signs/Intake and Output Vital Signs (last 24 hours): Temp Pulse Resp BP Pulse Ox 97.9 F 65 16 108/53 L 100 11/19/17 08:17 11/21/17 03:00 11/20/17 18:00 11/20/17 18:07 11/20/17 18:00 - Medications Medications: Current Medications Acetaminophen (Tylenol 325mg Tab) 650 mg PO Q6H PRN PRN Reason: Fever >100.4 F Aspirin (Aspirin Chewable) 81 mg PO DAILY [facility] Last Admin: 11/20/17 10:43 Dose: 81 mg Diphenhydramine HCl (Benadryl) 25 mg IVP Q6 PRN PRN Reason: Rash Meropenem (Merrem Iv 1 Gm Premix) 50 mls @ 100 mls/hr IVPB Q12 G[facility]Y PRN Reason: Protocol Stop: 11/27/17 20:01 Last Admin: 11/20/17 22:05 Dose: 100 mls/hr Sodium Chloride (Sodium Chloride 0.9%) 1,000 mls @ 125 mls/hr IV .Q8H [facility] Last Admin: 11/21/17 08:12 Dose: Not Given Daptomycin 730 mg/ Sodium (Chloride) 100 mls @ 200 mls/hr IV DAILY GERRY PRN Reason: Protocol Stop: 11/25/17 10:01 Last Admin: 11/20/17 10:44 Dose: 200 mls/hr Insulin Detemir (Levemir) 34 unit SC HS [facility] Last Admin: 11/20/17 22:56 Dose: 34 unit Insulin Human Lispro (Humalog Low) 0 units SC ACHS [facility] PRN Reason: Protocol Last Admin: 11/21/17 08:12 Dose: Not Given Insulin Human Lispro (Humalog) 12 units SC AC [facility] Last Admin: 11/21/17 08:10 Dose: 12 units Levalbuterol HCl (Xopenex) 0.63 mg IH [id number] [facility] Last Admin: 11/21/17 07:04 Dose: 0.63 mg Levalbuterol HCl (Xopenex) 1.25 mg IH [id number] PRN PRN Reason: Shortness of Breath Metoprolol Tartrate (Lopressor) 25 mg PO BID [facility] Last Admin: 11/20/17 18:07 Dose: 25 mg Oseltamivir Phosphate (Tamiflu) 30 mg PO DAILY [facility] PRN Reason: Protocol Last Admin: 11/20/17 10:45 Dose: 30 mg Oxycodone/Acetaminophen (Percocet 5/325 Mg Tab) 1 tab PO Q4H PRN PRN Reason: Pain, moderate (4-7) Stop: 11/22/17 13:14 Oxycodone/Acetaminophen (Percocet 5/325 Mg Tab) 2 tab PO Q4H PRN PRN Reason: Pain, severe (8-10) Stop: 11/22/17 13:14 Last Admin: 11/20/17 05:24 Dose: 2 tab Pantoprazole Sodium (Protonix Ec Tab) 40 mg PO 0600 [facility] Last Admin: 11/21/17 05:18 Dose: 40 mg - Labs Labs: 11/21/17 06:00 11/21/17 06:00 PT 12.5 SECONDS (9.4-12.5) 11/18/17 17:25 INR 1.09 (0.93-1.08) H 11/18/17 17:25 APTT 21.2 Seconds (25.1-36.5) L 11/18/17 17:25 - Constitutional Appears: Chronically Ill - Head Exam Head Exam: NORMAL INSPECTION - Neck Exam Neck Exam: absent: Meningismus - Respiratory Exam Respiratory Exam: Decreased Breath Sounds - Cardiovascular Exam Cardiovascular Exam: +S1, +S2 - GI/Abdominal Exam GI & Abdominal Exam: Soft. absent: Tenderness - Extremities Exam Additional comments: right foot with dressings in place Assessment and Plan - Assessment and Plan (Free Text) Plan: Assessment Severe sepsis with acute renal failure due to Staph aureus bacteremia, with mitral valve endocarditis and right foot severe skin and skin structure infection, S/P I and D POD #2 history of right hallux infected ulcer (with gangrene), grew Serratia S/P 1st ray amputation DM HTN dyslipidemia psoriasis history of wounds in the foot history of rib fractures due to trauma Plan continue Daptomycin and Merrem pending sensitivities of the Staph aureus in the blood - follow up repeat blood cx done yesterday; 2D echo shows mitral valve vegetations; cultures from the right foot also showing gram positive cocci in clusters patient will need at least 4-6 weeks of antibiotics with weekly ESR, CRP, CBC, CMP, CPK levels will continue to monitor clinically
--- NOTE | 2017-11-21 15:21 | CP.PCM.PN ---
Subjective - Date & Time of Evaluation Date of Evaluation: 11/21/17 Time of Evaluation: 15:21 - Subjective Subjective: Nephrology Consultation Note: Assessment:stable Acute Kidney Injury (N17.9) likely due to ATN due to sepsis, hypotension/shock: improving Influenza A DM, HTN (I12.0) active cigar smoker, obesity sepsis with GPC with Rt foot infection Hyponatremia Plan No acute need for renal replacement therapy at this time. maintain hemodynamics stable. Patient not on ACEI/ARB due to ROHINI Monitor Input/Output, daily weights and renal function with basic metabolic panel continue with IVF, lowered to 75 ml/hr Dose meds/antibiotics for improved GFR. Avoid fleets enema/magnesium based laxatives. Avoid nephrotoxins/NSAIDs/ iodinated contrast (unless needed emergently) Glycemic control pt encouraged to stop smoking And loose weight Further work up/management as per primary team Thanks for allowing me to participate in care of your patient. Will follow patient with you. Please call if any Qs Dr Caden Muller Office: [phone] Chief Complaint: foot infection HPI: Pt is a 72 M with hx of diabetes Mellitus (9 years), hypertension (years) , active cigar smoker, obesity and Rt foot infection presented with complaints of Rt foot wound infection with sepsis and also with Influenza. renal consult for ROHINI eval. pt not aware about prior hx of renal disease in past. his cr 1.1 in 2017 Denies OTC/herbal meds or NSAIDs No recent iodinated contrast exposure.noted episodes of low BP. ROS: Cardiovascular: No chest pain. Pulmonary: No shortness of breath Gastrointestinal: denies abdominal pain No nausea. No vomiting. Genitourinary: No pain while urinating. Denies blood in urine. All other negative except as mentioned in HPI Physical Examination: General Appearance: Comfortable, in no acute respiratory distress, co-operative . obese Vitals reviewed and noted as below Head; Atraumatic, normocephalic ENT: no ulcers no thrush. Tongue is midline. Oropharynx: no rash or ulcers. EYES: Pupils are equal, round and reactive to light accommodation. Eye muscles and extraocular movement intact. Sclera is anicteric. Neck; supple no lymphadenopathy, no thyromegaly or bruit Lungs: Normal respiratory rate/effort. Breath sounds bilateral equal and clear Heart: Normal rate. s1s2 normal. No rub or gallop. Extremities: Rt pedal edema. No varicose veins. Rt foot dressed. pedal pulses diminished Neurological: Patient is alert, awake and oriented to person, place and time. No focal deficit. Strength bilateral appropriate and equal Skin: Warm and dry. Normal turgor. No rash. Palpitation: Normal elasticity for age Abdomen: Abdomen is soft. Bowel sounds +. There is no abdominal tenderness, no guarding/rigidity no organomegaly Psych: normal insight and normal affect/mood MSK: no joint tenderness or swelling. Digits and nails normal, no deformity : kidney or bladder not palpable Labs/imaging reviewed. Past medical history, past surgical history, family history, social history, allergy reviewed and noted as below Family hx: no hx of CKD. Rest non-contributory workup: renal SONO: WNL CPK normal UA 30 protein moderate blood and 4+ glucose Objective - Vital Signs/Intake and Output Vital Signs (last 24 hours): Temp Pulse Resp BP Pulse Ox 97.9 F 68 16 128/72 100 11/19/17 08:17 11/21/17 09:56 18 18:00 11/21/17 09:56 11/20/17 18:00 - Medications Medications: Current Medications Acetaminophen (Tylenol 325mg Tab) 650 mg PO Q6H PRN PRN Reason: Fever >100.4 F Aspirin (Aspirin Chewable) 81 mg PO DAILY [facility] Last Admin: 11/21/17 09:54 Dose: 81 mg Diphenhydramine HCl (Benadryl) 25 mg IVP Q6 PRN PRN Reason: Rash Meropenem (Merrem Iv 1 Gm Premix) 50 mls @ 100 mls/hr IVPB Q12 GERRY PRN Reason: Protocol Stop: 11/27/17 20:01 Last Admin: 11/21/17 09:54 Dose: 100 mls/hr Sodium Chloride (Sodium Chloride 0.9%) 1,000 mls @ 125 mls/hr IV .Q8H [facility] Last Admin: 11/21/17 08:12 Dose: Not Given Daptomycin 730 mg/ Sodium (Chloride) 100 mls @ 200 mls/hr IV DAILY [facility] PRN Reason: Protocol Stop: 11/25/17 10:01 Last Admin: 11/21/17 09:54 Dose: 200 mls/hr Insulin Detemir (Levemir) 34 unit SC HS [facility] Last Admin: 11/20/17 22:56 Dose: 34 unit Insulin Human Lispro (Humalog Low) 0 units SC ACHS [facility] PRN Reason: Protocol Last Admin: 11/21/17 08:12 Dose: Not Given Insulin Human Lispro (Humalog) 12 units SC AC [facility] Last Admin: 11/21/17 12:06 Dose: 12 units Levalbuterol HCl (Xopenex) 0.63 mg IH [id number] [facility] Last Admin: 11/21/17 13:04 Dose: 0.63 mg Levalbuterol HCl (Xopenex) 1.25 mg IH [id number] PRN PRN Reason: Shortness of Breath Metoprolol Tartrate (Lopressor) 25 mg PO BID [facility] Last Admin: 11/21/17 09:56 Dose: 25 mg Oseltamivir Phosphate (Tamiflu) 30 mg PO DAILY [facility] PRN Reason: Protocol Last Admin: 11/21/17 09:56 Dose: 30 mg Oxycodone/Acetaminophen (Percocet 5/325 Mg Tab) 2 tab PO Q4H PRN PRN Reason: Pain, severe (8-10) Stop: 11/22/17 13:14 Last Admin: 11/20/17 05:24 Dose: 2 tab Pantoprazole Sodium (Protonix Ec Tab) 40 mg PO 0600 [facility] Last Admin: 11/21/17 05:18 Dose: 40 mg Tramadol HCl (Ultram) 50 mg PO Q8H PRN PRN Reason: Pain, moderate (4-7) - Labs Labs: 11/21/17 06:00 11/21/17 06:00 PT 12.5 SECONDS (9.4-12.5) 11/18/17 17:25 INR 1.09 (0.93-1.08) H 11/18/17 17:25 APTT 21.2 Seconds (25.1-36.5) L 11/18/17 17:25
[2017-11-21] MEDS ORDERED: Insulin Lispro 1 UNITS/0.01 ML SC SCH (16:30)
--- NOTE | 2017-11-21 16:53 | PN ---
DATE: ENDOCRINOLOGY FOLLOWUP NOTE LOCATION: ICU, room 128, bed 4, room 4. SUBJECTIVE: This is a 72-year-old female with recent uncontrolled type 2 insulin-requiring diabetes, now being followed closely for metabolic management. Her glycemic levels are fluctuating as noted and the latest glucose levels overnight have ranged from 239-306 mg/dL. Her latest chemistry showed a BUN of 46, sodium 139, potassium 4.6, chloride 108, CO2 of 24, glucose 223 and creatinine 1.5. Her hemoglobin A1c is 7.4%, which is actually near optimal as noted. So at this time, we will modify once again her basal and bolus insulin regimen and increase the Levemir to 40 units subcu at bedtime daily to start tonight. We will also increase the Humalog to 14 units subcu t.i.d. before meals to start at dinner time today as ordered. We will continue the IV hydration as given and obtain serial chemistries and supplement accordingly as needed. We will follow and advise accordingly. Carolyn Murdock MD
--- NOTE | 2017-11-21 17:54 | PN ---
DATE: 11/21/2017 CARDIOLOGY FOLLOWUP SUBJECTIVE: The patient is without shortness of breath. PHYSICAL EXAMINATION: VITAL SIGNS: Blood pressure 128/72, the heart rates in the 60s. NECK: Negative JVD. LUNGS: Without rales. HEART: Without change. EXTREMITIES: Without change. LABORATORY DATA: White count is 18.6. Chemistries, BUN and creatinine are 46 and 1.5 with a glucose of 223. IMPRESSION: 1. Mitral valve endocarditis. 2. Sepsis and lower extremity abscess. 3. Diabetes mellitus. 4. Non-ST elevation myocardial infarction. 5. Renal insufficiency. Given these findings, we will continue IV antibiotics. We will need to keep a close watch on his hemodynamics. Riccardo Whitehead MD
[2017-11-21] MEDS ORDERED: Sodium Chloride 0.9% 1,000 ML IV SCH (19:30)
[2017-11-21] MEDS: Insulin Detemir 100 units/ml Vial (Levemir) SC SCH (21:49)
[2017-11-21] MEDS ORDERED: Dextrose 50% SYRINGE Inj (50 ml) ONE (21:51)
[2017-11-21] MEDS ORDERED: Dextrose 50% SYRINGE Inj (50 ml) IVP ONE (21:54)
--- NOTE | 2017-11-21 22:32 | PN ---
DATE: 11/20/2017 SUBJECTIVE: This is a 72-year-old diabetic male seen in the ICU, status post 2 days emergent I and D of his right foot for abscess. The patient is seen at bedside. He states he is feeling better and he does clinically look a little better. His dressing is clean, dry and intact. PHYSICAL EXAMINATION VITAL SIGNS: His vital signs were reviewed. Blood pressure is 128/72 and his pulse was 68. MEDICATIONS: The patient's medications are noted on the MAR. ALLERGIES: HE HAS ALLERGIES TO KIWI, STRAWBERRY, AND RASPBERRY. NO MEDICATION ALLERGIES NOTED. LABORATORY DATA: The patient's labs were reviewed. His white blood cell count has come down to 18.6 from 25.1 from the surgery. His H and H is 13.2 and 41. His ESR is 65. His chemistry shows potassium is 4.6, the chloride was 108, BUN was 46, creatinine was 1.5 and the glucose was 223. The patient's AST, ALT and alkaline phosphatase were all elevated with 63, 71 and 168 respectively. His microbiology shows Gram-positive cocci from the blood. It also shows Staph aureus and coag-negative Staph from the blood that is 2 cultures and the third is pending anaerobic from the OR and Staph aureus from the OR foot culture. The patient also has MRSA Staph aureus. The patient also has flu. The patient's foot was unwrapped at bedside and the tissues and the toes are still viable. There is no cyanosis of the second digit, which I thought may become cyanotic post I and D. The I and D site is open. There is a large sinus tract on the plantar surface, which probably measures approximately 10 cm into the plantar space. Most of the abscess was released from the second MPJ area and this bone is palpable in the wound, although it is not exposed at this time indicating the patient has osteomyelitis. There is also an opening on the dorsum of the foot where we drained a large purulent abscess during the OR procedure. Today, there is no longer any purulence coming from the foot. The packing was removed. The foot was squeezed and no more pus was released. There was some bloody drainage after the compression was done. The wound was copiously flushed with Clorpactin solution. The wound was then repacked open with iodoform gauze and a dressing was applied. The patient needs to go back to the OR for cleaning of this wound the first OR was done as an emergent I and D only since the patient was not stable and very high risk from cardiac standpoint. I am going to try and put the patient on for tomorrow afternoon, probably around 4 o'clock, so that we can cleanse the sinus tract using the Misonix debrider and also I did speak to the patient's daughter regarding the same. The patient will be seen in followup. Eileen Baron DPM
[2017-11-22] MEDS: Levalbuterol 0.63 MG/3 ML Inhal Soln UD IH SCH ×4 (02:47→19:45)
[2017-11-22] MEDS: Pantoprazole 40 mg EC Tab PO SCH (05:41)
[2017-11-22 07:18] LABS: BASO # 0.07 K/mm3 (0.0-2.0); BASO % 0.4 % (0.0-3.0); EOS # 0.2 (0.0-0.7); EOS % 0.9 % (1.5-5.0); GRAN # 13.81 (1.4-6.5); HEMOGLOBIN 13.3 g/dL (14.0-18.0); LYMPH # 1.8 (1.2-3.4); LYMPH % 10.7 % (22.0-35.0); MEAN CELL VOLUME 90.2 fl (80.0-105.0); MEAN CORPUSCULAR HEMOGLOBIN 28.9 pg (25.0-35.0); MEAN PLATELET VOLUME 10.3 fl (7.0-11.0); MONO # 1.2 (0.1-0.6); RBC 4.61 10^6/uL (3.5-6.1); RED CELL DISTRIBUTION WIDTH 15.4 % (11.5-14.5); WHITE BLOOD COUNT 17.1 10^3/ul (4.5-11.0)
[2017-11-22 07:43] LABS: ALB/GLOB RATIO 0.7 (1.1-1.8); ALBUMIN 2.6 g/dL (3.0-4.8); ALT/SGPT 92 U/L (7-56); AST/SGOT 90 U/L (17-59); BLOOD UREA NITROGEN 30 mg/dL (7-21); CALCIUM 8.6 mg/dL (8.4-10.5); GFR AFRICAN-AMERICAN > 60; GFR NON-AFRICAN AMERICAN > 60
[2017-11-22] MEDS: Insulin Lispro (humaLOG) LOW Coverage SC SCH ×4 (10:28→21:42)
[2017-11-22] MEDS: Insulin Lispro 1 UNITS/0.01 ML SC SCH ×3 (10:29→18:13)
[2017-11-22] MEDS: Meropenem IV 1 gm in NS 50 ML IVPB SCH ×2 (10:38→21:41)
--- NOTE | 2017-11-22 11:53 | PN ---
DATE: SUBJECTIVE: I saw him in the Intensive Care Unit. He is kind of weak, tired. No acute distress. He is trying to eat. MEDICATIONS: He is currently on aspirin, Benadryl, Clorpactin, Cubicin, dextrose, Humalog, Levemir, Lopressor, Merrem IV, Percocet, Protonix, IV fluids, Tamiflu, Ultram, Xopenex. PHYSICAL EXAMINATION: VITAL SIGNS: He has a 97.9 temperature, 74 pulse, 122/65 blood pressure, 15 respiratory rate. HEENT: His head is atraumatic, normocephalic. Throat is moist. NECK: Supple. HEART: Regular rate. LUNGS: Decreased breath sounds bilaterally. ABDOMEN: Soft, morbidly obese, nontender. Positive bowel sounds. He has a right foot ulcer, sepsis, positive troponins, UTI, influenza, endocarditis, renal insufficiency. He has a flu. LABORATORY DATA: His white count is finally down to 17.1, 13.3 hemoglobin with 41.6 hematocrit, 171 platelets, slowly dropping with dropping. He has a 141 sodium, potassium 4.2, BUN 30, creatinine 1.1, GFR is greater than 60, sugar is 115, calcium is 8.6, total bili is 0.6, AST is 90, ALT is 92, alk phos 173. 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 He has mitral valve endocarditis, sepsis, lower extremity abscess and cellulitis and ulcer, diabetes mellitus and [id number] myocardial infarction, renal insufficiency. Continue with aggressive treatment and care. Continue with intensive care. Reagan Mendez DO
--- NOTE | 2017-11-22 12:13 | PN ---
DATE: 11/22/2017 CARDIOLOGY FOLLOWUP SUBJECTIVE: The patient is comfortable. No shortness of breath. No chest pain. PHYSICAL EXAMINATION: VITAL SIGNS: Blood pressure is 124/69. The patient is afebrile. Heart rate is in the 60s. NECK: Negative JVD. LUNGS: Without rales. HEART: Reveals II/ systolic section murmur. EXTREMITIES: Without edema. LABORATORY DATA: Hemoglobin is 13, white count is 17. BUN and creatinine are unremarkable. IMPRESSION: 1. Sepsis. 2. Endocarditis. 3. Infection of the lower extremities. 4. [id number] myocardial infarction. 5. Renal insufficiency. PLAN: Given these findings, we will continue to monitor the heart closely. We will repeat an echocardiogram in 2 weeks. Riccardo Whitehead MD cc:
--- NOTE | 2017-11-22 13:42 | CP.PCM.PN ---
Subjective - Date & Time of Evaluation Date of Evaluation: 11/22/17 Time of Evaluation: 13:39 - Subjective Subjective: Nephrology Consultation Note: Assessment:stable Acute Kidney Injury (N17.9) likely due to ATN due to sepsis, hypotension/shock: improved Influenza A DM, HTN (I12.0) active cigar smoker, obesity sepsis with GPC with Rt foot infection Hyponatremia: resolved Plan renal function at baseline Bp stable now d/c IVF stat arterial doppler of legs ordered. d/w primary team tamiflu increased to 75 bid as renal function improved Dose meds/antibiotics for improved GFR. Avoid nephrotoxins/NSAIDs Glycemic control pt encouraged to stop smoking And loose weight Further work up/management as per primary team Thanks for allowing me to participate in care of your patient. Will follow PRN. Please call if any Qs Dr Caden Muller Office: [phone] Chief Complaint: foot infection HPI: Pt is a 72 M with hx of diabetes Mellitus (9 years), hypertension (years) , active cigar smoker, obesity and Rt foot infection presented with complaints of Rt foot wound infection with sepsis and also with Influenza. renal consult for ROHINI eval. pt not aware about prior hx of renal disease in past. his cr 1.1 in 2017 Denies OTC/herbal meds or NSAIDs No recent iodinated contrast exposure.noted episodes of low BP. ROS: Cardiovascular: No chest pain. Pulmonary: No shortness of breath Gastrointestinal: denies abdominal pain No nausea. No vomiting. Genitourinary: No pain while urinating. Denies blood in urine. All other negative except as mentioned in HPI. feels tired Physical Examination: General Appearance: Comfortable, in no acute respiratory distress, co-operative . obese Vitals reviewed and noted as below Head; Atraumatic, normocephalic ENT: no ulcers no thrush. Tongue is midline. Oropharynx: no rash or ulcers. EYES: Pupils are equal, round and reactive to light accommodation. Eye muscles and extraocular movement intact. Sclera is anicteric. Neck; supple no lymphadenopathy, no thyromegaly or bruit Lungs: Normal respiratory rate/effort. Breath sounds bilateral equal and clear Heart: Normal rate. s1s2 normal. No rub or gallop. Extremities: Rt pedal edema. No varicose veins. Rt foot dressed. pedal pulses diminished. left foot looks pale and cold to cough Neurological: Patient is alert, awake and oriented to person, place and time. No focal deficit. Strength bilateral appropriate and equal Skin: Warm and dry. Normal turgor. No rash. Palpitation: Normal elasticity for age Abdomen: Abdomen is soft. Bowel sounds +. There is no abdominal tenderness, no guarding/rigidity no organomegaly Psych: normal insight and normal affect/mood MSK: no joint tenderness or swelling. Digits and nails normal, no deformity : kidney or bladder not palpable Labs/imaging reviewed. Past medical history, past surgical history, family history, social history, allergy reviewed and noted as below Family hx: no hx of CKD. Rest non-contributory workup: renal SONO: WNL CPK normal UA 30 protein moderate blood and 4+ glucose Objective - Vital Signs/Intake and Output Vital Signs (last 24 hours): Temp Pulse Resp BP Pulse Ox 97.9 F 69 19 153/82 H 100 11/19/17 08:17 11/22/17 10:39 11/22/17 06:00 11/22/17 10:39 11/21/17 07:30 - Medications Medications: Current Medications Acetaminophen (Tylenol 325mg Tab) 650 mg PO Q6H PRN PRN Reason: Fever >100.4 F Aspirin (Aspirin Chewable) 81 mg PO DAILY [facility] Last Admin: 11/22/17 10:42 Dose: 81 mg Diphenhydramine HCl (Benadryl) 25 mg IVP Q6 PRN PRN Reason: Rash Meropenem (Merrem Iv 1 Gm Premix) 50 mls @ 100 mls/hr IVPB Q12 [facility] PRN Reason: Protocol Stop: 11/27/17 20:01 Last Admin: 11/22/17 10:38 Dose: 100 mls/hr Daptomycin 730 mg/ Sodium (Chloride) 100 mls @ 200 mls/hr IV DAILY [facility] PRN Reason: Protocol Stop: 11/25/17 10:01 Last Admin: 11/22/17 10:41 Dose: 200 mls/hr Insulin Detemir (Levemir) 40 unit SC HS [facility] Last Admin: 11/21/17 21:49 Dose: Not Given Insulin Human Lispro (Humalog Low) 0 units SC ACHS [facility] PRN Reason: Protocol Last Admin: 11/22/17 10:28 Dose: Not Given Insulin Human Lispro (Humalog) 8 units SC AC [facility] Last Admin: 11/22/17 10:29 Dose: Not Given Levalbuterol HCl (Xopenex) 0.63 mg IH [id number] [facility] Last Admin: 11/22/17 13:09 Dose: 0.63 mg Levalbuterol HCl (Xopenex) 1.25 mg IH [id number] PRN PRN Reason: Shortness of Breath Metoprolol Tartrate (Lopressor) 25 mg PO BID [facility] Last Admin: 11/22/17 10:39 Dose: 25 mg Oseltamivir Phosphate (Tamiflu) 75 mg PO BID [facility] PRN Reason: Protocol Stop: 11/23/17 18:01 Pantoprazole Sodium (Protonix Ec Tab) 40 mg PO 0600 [facility] Last Admin: 11/22/17 05:41 Dose: 40 mg Tramadol HCl (Ultram) 50 mg PO Q8H PRN PRN Reason: Pain, moderate (4-7) - Labs Labs: 11/22/17 05:50 11/22/17 05:50 PT 12.5 SECONDS (9.4-12.5) 11/18/17 17:25 INR 1.09 (0.93-1.08) H 11/18/17 17:25 APTT 21.2 Seconds (25.1-36.5) L 11/18/17 17:25
--- NOTE | 2017-11-22 14:52 | CP.PCM.PN ---
Subjective - Date & Time of Evaluation Date of Evaluation: 11/22/17 Time of Evaluation: 10:10 - Subjective Subjective: Less pain in the foot, no fevers, no SOB at rest, no diarrhea. Objective - Vital Signs/Intake and Output Vital Signs (last 24 hours): Temp Pulse Resp BP Pulse Ox 97.9 F 65 19 124/69 100 11/19/17 08:17 11/22/17 06:00 11/22/17 06:00 11/22/17 04:00 11/21/17 07:30 Intake and Output: 11/21/17 11/22/17 18:59 06:59 Intake Total 1830 Output Total 450 Balance 1380 - Medications Medications: Current Medications Acetaminophen (Tylenol 325mg Tab) 650 mg PO Q6H PRN PRN Reason: Fever >100.4 F Aspirin (Aspirin Chewable) 81 mg PO DAILY [facility] Last Admin: 11/21/17 09:54 Dose: 81 mg Diphenhydramine HCl (Benadryl) 25 mg IVP Q6 PRN PRN Reason: Rash Meropenem (Merrem Iv 1 Gm Premix) 50 mls @ 100 mls/hr IVPB Q12 [facility] PRN Reason: Protocol Stop: 11/27/17 20:01 Last Admin: 11/21/17 22:17 Dose: 100 mls/hr Daptomycin 730 mg/ Sodium (Chloride) 100 mls @ 200 mls/hr IV DAILY [facility] PRN Reason: Protocol Stop: 11/25/17 10:01 Last Admin: 11/21/17 09:54 Dose: 200 mls/hr Sodium Chloride (Sodium Chloride 0.9%) 1,000 mls @ 75 mls/hr IV .[id number] [facility] Last Admin: 11/22/17 05:21 Dose: 75 mls/hr Insulin Detemir (Levemir) 40 unit SC HS [facility] Last Admin: 11/21/17 21:49 Dose: Not Given Insulin Human Lispro (Humalog Low) 0 units SC ACHS [facility] PRN Reason: Protocol Last Admin: 11/21/17 21:48 Dose: Not Given Insulin Human Lispro (Humalog) 8 units SC AC [facility] Levalbuterol HCl (Xopenex) 0.63 mg IH [id number] [facility] Last Admin: 11/22/17 02:47 Dose: Not Given Levalbuterol HCl (Xopenex) 1.25 mg IH [id number] PRN PRN Reason: Shortness of Breath Metoprolol Tartrate (Lopressor) 25 mg PO BID [facility] Last Admin: 11/21/17 18:40 Dose: 25 mg Oseltamivir Phosphate (Tamiflu) 30 mg PO DAILY [facility] PRN Reason: Protocol Last Admin: 11/21/17 09:56 Dose: 30 mg Oxycodone/Acetaminophen (Percocet 5/325 Mg Tab) 2 tab PO Q4H PRN PRN Reason: Pain, severe (8-10) Stop: 11/22/17 13:14 Last Admin: 11/20/17 05:24 Dose: 2 tab Pantoprazole Sodium (Protonix Ec Tab) 40 mg PO 0600 [facility] Last Admin: 11/22/17 05:41 Dose: 40 mg Tramadol HCl (Ultram) 50 mg PO Q8H PRN PRN Reason: Pain, moderate (4-7) - Labs Labs: 11/21/17 06:00 11/21/17 06:00 PT 12.5 SECONDS (9.4-12.5) 11/18/17 17:25 INR 1.09 (0.93-1.08) H 11/18/17 17:25 APTT 21.2 Seconds (25.1-36.5) L 11/18/17 17:25 - Constitutional Appears: Non-toxic, Chronically Ill - Head Exam Head Exam: NORMAL INSPECTION - Neck Exam Neck Exam: absent: Meningismus - Respiratory Exam Respiratory Exam: Decreased Breath Sounds - Cardiovascular Exam Cardiovascular Exam: +S1, +S2 - GI/Abdominal Exam GI & Abdominal Exam: Soft. absent: Tenderness - Extremities Exam Additional comments: right foot with dressings in place Assessment and Plan - Assessment and Plan (Free Text) Plan: Assessment Severe sepsis with acute renal failure due to methicillin-sensitive Staph aureus bacteremia, with mitral valve endocarditis and right foot severe skin and skin structure infection (with MRSA), S/P I and D POD #3 history of right hallux infected ulcer (with gangrene), grew Serratia S/P 1st ray amputation DM HTN dyslipidemia psoriasis history of wounds in the foot history of rib fractures due to trauma Plan continue Daptomycin and may d/c Merrem - repeat blood cx 11/20 still positive; will repeat blood cx today; 2D echo shows mitral valve vegetations; cultures from the right foot also showing gram positive cocci in clusters patient will need at least 4-6 weeks of antibiotics from first negative blood cx with weekly ESR, CRP, CBC, CMP, CPK levels will continue to monitor clinically
--- NOTE | 2017-11-22 16:12 | PN ---
DATE: ENDOCRINOLOGY FOLLOWUP NOTE LOCATION: ICU 128, room 4. SUBJECTIVE: This is a 72-year-old female with recent uncontrolled type 2 insulin-requiring diabetes and now being followed closely for metabolic management. She presented here with acute influenza and supervening acute tubular necrosis with bacteremia and concomitant right foot neuropathic ulceration and is now being followed closely and is currently receiving IV antibiotic management is given. Her glycemic levels are fluctuating but much improved at this time and the overnight glucose levels have ranged from 108-119 and 193 mg/dL. The latest chemistries showed a BUN of 30, sodium 141, potassium 4.2, chloride 107, CO2 30, glucose 115 and creatinine 1.1. So at this time, we will continue the basal and bolus insulin regimen to allow for dose equilibration and because of her variable oral intake with prandial insulin down to a dose of Humalog given as 8 units subcu t.i.d. before meals as ordered. We will continue the Levemir given as 40 units subcu at bedtime daily is given. We will titrate incrementally as indicated to optimize metabolic control. We will obtain serial chemistries and supplement accordingly as needed. We will follow. Carolyn Murdock MD
--- NOTE | 2017-11-22 17:17 | CP.PCM.PN ---
<Jose C Rodgers - Last Filed: 11/22/17 17:09> Subjective - Date & Time of Evaluation Date of Evaluation: 11/22/17 Time of Evaluation: 15:00 - Subjective Subjective: Podiatry Progress Note- Dr Baron 72 y.o male is seen at bedside with attending Dr. Baron. Patient is s/p 3 days of emergent incision and drainage of right foot abscess. Patient is seen out of bed, in chair, in NAD and AA0x3. Patient reports that he is doing okay today. He reports that he feels tired and weak. Patient denies nausea, fever, chills, chest pain, diarrhea. Patient reports no pain to the lower extremity. Patient has no new pedal complaints at this time. Objective - Vital Signs/Intake and Output Vital Signs (last 24 hours): Temp Pulse Resp BP Pulse Ox 97.9 F 71 34 H 129/59 L 97 11/22/17 07:00 11/22/17 16:01 11/22/17 16:01 11/22/17 16:01 11/22/17 16:01 - Medications Medications: Current Medications Acetaminophen (Tylenol 325mg Tab) 650 mg PO Q6H PRN PRN Reason: Fever >100.4 F Aspirin (Aspirin Chewable) 81 mg PO DAILY [facility] Last Admin: 11/22/17 10:42 Dose: 81 mg Diphenhydramine HCl (Benadryl) 25 mg IVP Q6 PRN PRN Reason: Rash Meropenem (Merrem Iv 1 Gm Premix) 50 mls @ 100 mls/hr IVPB Q12 [facility] PRN Reason: Protocol Stop: 11/27/17 20:01 Last Admin: 11/22/17 10:38 Dose: 100 mls/hr Daptomycin 730 mg/ Sodium (Chloride) 100 mls @ 200 mls/hr IV DAILY [facility] PRN Reason: Protocol Stop: 11/25/17 10:01 Last Admin: 11/22/17 10:41 Dose: 200 mls/hr Insulin Detemir (Levemir) 40 unit SC HS [facility] Last Admin: 11/21/17 21:49 Dose: Not Given Insulin Human Lispro (Humalog Low) 0 units SC ACHS [facility] PRN Reason: Protocol Last Admin: 11/22/17 10:28 Dose: Not Given Insulin Human Lispro (Humalog) 8 units SC AC [facility] Last Admin: 11/22/17 10:29 Dose: Not Given Levalbuterol HCl (Xopenex) 0.63 mg IH [id number] [facility] Last Admin: 11/22/17 13:09 Dose: 0.63 mg Levalbuterol HCl (Xopenex) 1.25 mg IH [id number] PRN PRN Reason: Shortness of Breath Metoprolol Tartrate (Lopressor) 25 mg PO BID [facility] Last Admin: 11/22/17 10:39 Dose: 25 mg Oseltamivir Phosphate (Tamiflu Cap) 75 mg PO BID [facility] PRN Reason: Protocol Stop: 11/23/17 18:01 Pantoprazole Sodium (Protonix Ec Tab) 40 mg PO 0600 [facility] Last Admin: 11/22/17 05:41 Dose: 40 mg Tramadol HCl (Ultram) 50 mg PO Q8H PRN PRN Reason: Pain, moderate (4-7) - Labs Labs: 11/22/17 05:50 11/22/17 05:50 PT 12.5 SECONDS (9.4-12.5) 11/18/17 17:25 INR 1.09 (0.93-1.08) H 11/18/17 17:25 APTT 21.2 Seconds (25.1-36.5) L 11/18/17 17:25 - Constitutional Appears: Well, Non-toxic, No Acute Distress - Extremities Exam Extremities Exam: absent: Calf Tenderness Additional comments: Vasc: DP and PT non-palpable, temperature gradient is WNL, CFT < 3 seconds to all digits, moderate edema noted to the right forefoot Ortho: no pain with palpation to ulceration site, right healed partial ray amputation Neuro: gross and protective sensation diminished Derm: Two surgical incisions: #1 longitudinal surgical incision noted to the plantar aspect of the sub metatarsal 2 measuring approximately 4 x .3 cm and surgical incision measuring approximately 2 cm x .3 cm on the dorsum of the foot, wound base is mixture fibrotic and necrotic tissue, no purulence drainage noted, less malodorous, tunneling and tracking noted; surgical incisions are connected - Neurological Exam Neurological Exam: Alert, Awake, Oriented x3 - Psychiatric Exam Psychiatric exam: Normal Affect, Normal Mood Assessment and Plan - Assessment and Plan (Free Text) Assessment: 72 y.o male is s/p 3 days of emergent incision and drainage of right foot abscess. Plan: -Patient examined and evaluated with attending at bedside -Charts, labs, vitals reviewed: leukocytosis WBC at 17.6, trended down since admission - HbA1c 7.4, ESR 65, f/u procalcitonin -Discussed plan in detail with attending Dr. Baron -Xray of right foot- possible OM, fracture right 2nd proximal phalanx, may be secondary to OM -packing removed, irrigation of the surgical site with copious amounts of saline solution, packed with gauze, dsd, abd and kerlix -Patient will need to go to OR again for additional debridement of nonviable tissue with irrigation -Patient will most likely go to the OR for Sunday -drainage culture -MRSA on 11/19/17 -wound culture- S. Aureus on 11/19/17 -blood culture repear on 11/20 positive x2- gram positive cocci -c/w IV abx -duplex- normal YA at rest, rest 1.21 and left 1.51 -will continue to follow while in house <Eileen Baron - Last Filed: 11/25/17 15:58> Objective - Vital Signs/Intake and Output Vital Signs (last 24 hours): Temp Pulse Resp BP Pulse Ox 98.3 F 68 20 146/80 94 L 11/25/17 06:00 11/25/17 09:50 11/25/17 06:00 11/25/17 09:51 11/25/17 06:00 Intake and Output: 11/25/17 11/25/17 06:59 18:59 Intake Total 480 Output Total 1000 Balance -520 - Medications Medications: Current Medications Acetaminophen (Tylenol 325mg Tab) 650 mg PO Q6H PRN PRN Reason: Fever >100.4 F Amlodipine Besylate (Norvasc) 2.5 mg PO DAILY [facility] Last Admin: 11/25/17 09:51 Dose: 2.5 mg Aspirin (Aspirin Chewable) 81 mg PO DAILY [facility] Last Admin: 11/25/17 09:50 Dose: 81 mg Diphenhydramine HCl (Benadryl) 25 mg IVP Q6 PRN PRN Reason: Rash Daptomycin 750 mg/ Sodium (Chloride) 100 mls @ 200 mls/hr IV Q24H [facility] Stop: 12/23/17 11:16 Last Admin: 11/25/17 11:36 Dose: Not Given Insulin Detemir (Levemir) 42 unit SC HS [facility] Last Admin: 11/24/17 21:53 Dose: 42 unit Insulin Human Lispro (Humalog Low) 0 units SC ACHS [facility] PRN Reason: Protocol Last Admin: 11/25/17 11:49 Dose: Not Given Insulin Human Lispro (Humalog) 10 units SC AC [facility] Last Admin: 11/25/17 12:41 Dose: Not Given Levalbuterol HCl (Xopenex) 0.63 mg IH [id number] [facility] Last Admin: 11/25/17 13:47 Dose: 0.63 mg Levalbuterol HCl (Xopenex) 1.25 mg IH [id number] PRN PRN Reason: Shortness of Breath Metoprolol Tartrate (Lopressor) 25 mg PO BID [facility] Last Admin: 11/25/17 09:50 Dose: 25 mg Pantoprazole Sodium (Protonix Ec Tab) 40 mg PO 0600 [facility] Last Admin: 11/25/17 05:18 Dose: 40 mg Tramadol HCl (Ultram) 50 mg PO Q8H PRN PRN Reason: Pain, moderate (4-7) Last Admin: 11/25/17 10:08 Dose: 50 mg Vancomycin HCl (Vancocin 25 Mg/Ml (Oral Use)) 125 mg PO QID [facility] PRN Reason: Protocol Last Admin: 11/25/17 15:03 Dose: 125 mg - Labs Labs: 11/25/17 06:00 11/25/17 06:00 PT 11.9 SECONDS (9.4-12.5) 11/23/17 17:04 INR 1.04 (0.93-1.08) 11/23/17 17:04 APTT 19.6 Seconds (25.1-36.5) L 11/23/17 17:04 Attending/Attestation - Attestation I have personally seen and examined this patient.: Yes I have fully participated in the care of the patient.: Yes I have reviewed all pertinent clinical information, including history, physical exam and plan: Yes
[2017-11-22] MEDS: Insulin Detemir 100 units/ml Vial (Levemir) SC SCH (21:46)
[2017-11-23] MEDS: Levalbuterol 0.63 MG/3 ML Inhal Soln UD IH SCH ×3 (01:27→13:42)
[2017-11-23] MEDS: Pantoprazole 40 mg EC Tab PO SCH (05:17)
[2017-11-23 07:26] LABS: BASO # 0.03 K/mm3 (0.0-2.0); BASO % 0.2 % (0.0-3.0); EOS # 0.2 (0.0-0.7); EOS % 1.2 % (1.5-5.0); GRAN # 16.23 (1.4-6.5); GRAN % 85.5 % (50.0-68.0); HEMOGLOBIN 13.2 g/dL (14.0-18.0); LYMPH # 1.5 (1.2-3.4); LYMPH % 7.9 % (22.0-35.0); MEAN CELL VOLUME 88.7 fl (80.0-105.0); MEAN CORPUSCULAR HEMOGLOBIN 28.8 pg (25.0-35.0); MEAN CORPUSCULAR HGB CONC 32.4 g/dl (31.0-37.0); MEAN PLATELET VOLUME 9.6 fl (7.0-11.0); MONO % 5.2 % (1.0-6.0); RBC 4.59 10^6/uL (3.5-6.1); RED CELL DISTRIBUTION WIDTH 15.1 % (11.5-14.5)
[2017-11-23 07:41] LABS: ALB/GLOB RATIO 0.6 (1.1-1.8); ALBUMIN 2.5 g/dL (3.0-4.8); ALT/SGPT 73 U/L (7-56); AST/SGOT 47 U/L (17-59); BLOOD UREA NITROGEN 24 mg/dL (7-21); CALCIUM 8.7 mg/dL (8.4-10.5); GFR AFRICAN-AMERICAN > 60; GFR NON-AFRICAN AMERICAN > 60
[2017-11-23] MEDS: Insulin Lispro 1 UNITS/0.01 ML SC SCH ×3 (09:23→16:46)
--- NOTE | 2017-11-23 09:32 | PN ---
DATE: SUBJECTIVE: I saw him in the Intensive Care Unit. He is resting in bed. Slept fairly well. Still kind of weak. He has multiple issues going on. He has severe sepsis, acute renal failure, mitral valve endocarditis, right foot severe skin and skin structure infection. He has a right foot ulcer with gangrene, diabetes. MEDICATIONS: He is on daptomycin IV, aspirin, Benadryl, insulin, Levemir, Lopressor, Merrem also IV, Protonix, Tamiflu, Tylenol, Ultram, Xopenex. PHYSICAL EXAMINATION: GENERAL: He is in bed. He slept fairly well. He is weak. VITAL SIGNS: He has a 97.9 temp, 64 pulse, 132/55 blood pressure, 17 respiratory rate, 90-98% O2 sat. HEENT: His head is atraumatic, normocephalic. HEART: Regular rate. LUNGS: Decreased breath sounds bilaterally, but clear. ABDOMEN: Soft. Morbidly obese. EXTREMITIES: Trace edema. Right foot is bandaged. LABORATORY DATA: He has a 19,000 white count, still quite elevated; 13.2 hemoglobin, 40.7 hematocrit with 175 platelets. His lactate is down to 1.7. He has a 140 sodium, potassium is 4, BUN 24, creatinine 0.9, GFR is greater than 60, sugar is 150, calcium is 8.7, total bili is 0.6, AST is 47, ALT is 73, alk phos is 158, total protein 6.3. He did have a urinary tract infection. Positive influenza. Positive blood cultures. Positive urine cultures. ASSESSMENT AND PLAN: He is being seen by director of graduate medical education, the emr implementation specialist, Infectious Disease, Renal, Cardiology. He is quite sick. I will try and get him out of bed to chair, give him physical therapy, may be even get him to the Transitional Care Unit to finished out the treatment. Toya Puckett who has got multiple issues, sepsis, influenza, renal insufficiency, mitral valve endocarditis, right foot ulcer, positive troponins. Reagan Mendez DO
[2017-11-23] MEDS: Insulin Lispro (humaLOG) LOW Coverage SC SCH ×4 (12:21→22:00)
--- NOTE | 2017-11-23 12:47 | CP.PCM.PN ---
Subjective - Date & Time of Evaluation Date of Evaluation: 11/23/17 Time of Evaluation: 09:40 - Subjective Subjective: The patient is sleepy but arousable, no fevers, less pain in the right foot, has loose bowel movements but not watery. Objective - Vital Signs/Intake and Output Vital Signs (last 24 hours): Temp Pulse Resp BP Pulse Ox 97.9 F 68 15 147/75 96 11/22/17 07:00 11/23/17 05:00 11/23/17 05:00 11/23/17 04:00 11/23/17 05:00 Intake and Output: 11/23/17 11/23/17 06:59 18:59 Intake Total 1000 Output Total 400 Balance 600 - Medications Medications: Current Medications Acetaminophen (Tylenol 325mg Tab) 650 mg PO Q6H PRN PRN Reason: Fever >100.4 F Aspirin (Aspirin Chewable) 81 mg PO DAILY [facility] Last Admin: 11/22/17 10:42 Dose: 81 mg Diphenhydramine HCl (Benadryl) 25 mg IVP Q6 PRN PRN Reason: Rash Daptomycin 730 mg/ Sodium (Chloride) 100 mls @ 200 mls/hr IV DAILY [facility] PRN Reason: Protocol Stop: 11/25/17 10:01 Last Admin: 11/22/17 10:41 Dose: 200 mls/hr Insulin Detemir (Levemir) 40 unit SC HS [facility] Last Admin: 11/22/17 21:46 Dose: 40 unit Insulin Human Lispro (Humalog Low) 0 units SC ACHS [facility] PRN Reason: Protocol Last Admin: 11/22/17 21:42 Dose: Not Given Insulin Human Lispro (Humalog) 8 units SC AC [facility] Last Admin: 11/22/17 18:13 Dose: 8 units Levalbuterol HCl (Xopenex) 0.63 mg IH [id number] [facility] Last Admin: 11/23/17 07:28 Dose: 0.63 mg Levalbuterol HCl (Xopenex) 1.25 mg IH [id number] PRN PRN Reason: Shortness of Breath Metoprolol Tartrate (Lopressor) 25 mg PO BID [facility] Last Admin: 11/22/17 18:14 Dose: 25 mg Oseltamivir Phosphate (Tamiflu Cap) 75 mg PO BID [facility] PRN Reason: Protocol Stop: 11/23/17 18:01 Last Admin: 11/22/17 18:14 Dose: 75 mg Pantoprazole Sodium (Protonix Ec Tab) 40 mg PO 0600 [facility] Last Admin: 11/23/17 05:17 Dose: 40 mg Tramadol HCl (Ultram) 50 mg PO Q8H PRN PRN Reason: Pain, moderate (4-7) Last Admin: 11/22/17 18:14 Dose: 50 mg - Labs Labs: 11/23/17 07:00 11/23/17 07:00 PT 12.5 SECONDS (9.4-12.5) 11/18/17 17:25 INR 1.09 (0.93-1.08) H 11/18/17 17:25 APTT 21.2 Seconds (25.1-36.5) L 11/18/17 17:25 - Constitutional Appears: Non-toxic, Chronically Ill - Head Exam Head Exam: NORMAL INSPECTION - ENT Exam ENT Exam: Mucous Membranes Moist - Neck Exam Neck Exam: absent: Meningismus - Respiratory Exam Respiratory Exam: Decreased Breath Sounds - Cardiovascular Exam Cardiovascular Exam: +S1, +S2 - GI/Abdominal Exam GI & Abdominal Exam: Soft. absent: Tenderness - Extremities Exam Additional comments: right foot with dressings in place Assessment and Plan - Assessment and Plan (Free Text) Plan: Assessment Severe sepsis with acute renal failure due to methicillin-sensitive Staph aureus bacteremia, with mitral valve endocarditis and right foot severe skin and skin structure infection (with MRSA), S/P I and D POD #4 history of right hallux infected ulcer (with gangrene), grew Serratia S/P 1st ray amputation DM HTN dyslipidemia psoriasis history of wounds in the foot history of rib fractures due to trauma Plan continue Daptomycin - repeat blood cx 11/20 still positive;follow up blood cx from yesterday; 2D echo shows mitral valve vegetations; cultures from the right foot also showing MRSA and MSSA patient will need at least 4-6 weeks of antibiotics from first negative blood cx with weekly ESR, CRP, CBC, CMP, CPK levels will continue to monitor clinically
--- NOTE | 2017-11-23 13:40 | PN ---
DATE: ENDOCRINOLOGY FOLLOWUP NOTE LOCATION: IN ICU room 128, bed 4. SUBJECTIVE: This is a 72-year-old female with recent uncontrolled type 2 insulin-requiring diabetes, now being followed closely for metabolic management. Her oral intake remains quite variable at this time with glycemic fluctuations also as noted thereof. Her glucose levels overnight showed a glucose level of 150-208 mg/dL. It was 222 at bedtime last night. The latest chemistry showed a BUN of 24, sodium 140, potassium 4.0, chloride 109, CO2 of 27, glucose 152 and creatinine 0.9. So at this time, we will modify once again her basal and bolus insulin regimen and increase the Humalog to 10 units subcu t.i.d. before meals to start at dinnertime today as ordered. We will titrate incrementally as indicated to optimize metabolic control. We will also continue the low-dose correction scale using Humalog insulin as given. Moreover, we will continue the basal insulin given as 40 units subcu at bedtime daily to start tonight. We will titrate incrementally as indicated to optimize metabolic control. We will obtain serial chemistries and supplement accordingly as needed. We will follow and advise accordingly. Carolyn Murdock MD
[2017-11-23] MEDS: Vancomycin 25 MG/ML PO SCH ×3 (14:30→21:53)
[2017-11-23 17:07] LABS: VENOUS BLOOD GAS PO2 39 mm/Hg (30-55); VENOUS BLOOD PH 7.42 (7.32-7.43)
[2017-11-23 17:11] LABS: BASO # 0.02 K/mm3 (0.0-2.0); BASO % 0.1 % (0.0-3.0); EOS # 0.2 (0.0-0.7); GRAN # 14.98 (1.4-6.5); GRAN % 84.5 % (50.0-68.0); HEMOGLOBIN 12.5 g/dL (14.0-18.0); LYMPH # 1.7 (1.2-3.4); LYMPH % 9.4 % (22.0-35.0); MEAN CELL VOLUME 89.5 fl (80.0-105.0); MEAN CORPUSCULAR HEMOGLOBIN 29.1 pg (25.0-35.0); MEAN CORPUSCULAR HGB CONC 32.5 g/dl (31.0-37.0); MEAN PLATELET VOLUME 9.8 fl (7.0-11.0); MONO # 0.9 (0.1-0.6); RBC 4.3 10^6/uL (3.5-6.1); RED CELL DISTRIBUTION WIDTH 15.1 % (11.5-14.5); WHITE BLOOD COUNT 17.7 10^3/ul (4.5-11.0)
[2017-11-23 17:18] LABS: ALB/GLOB RATIO 0.7 (1.1-1.8); ALBUMIN 2.5 g/dL (3.0-4.8); ALT/SGPT 75 U/L (7-56); AST/SGOT 45 U/L (17-59); BLOOD UREA NITROGEN 23 mg/dL (7-21); CALCIUM 9.1 mg/dL (8.4-10.5); GFR AFRICAN-AMERICAN > 60; GFR NON-AFRICAN AMERICAN > 60
[2017-11-23 17:36] LABS: INR 1.04 (0.93-1.08); PARTIAL THROMBOPLASTIN TIME 19.6 Seconds (25.1-36.5); PROTHROMBIN TIME 11.9 SECONDS (9.4-12.5)
--- NOTE | 2017-11-23 20:20 | PN ---
DATE: SUBJECTIVE: This 72-year-old diabetic male seen at bedside for continued evaluation and management of a severe right foot abscess that required emergent incision and drainage. The patient has been transferred from ICU to the third floor. He is resting comfortably and is seen eating. He offers no new complaints at this time. PHYSICAL EXAMINATION: VITAL SIGNS: Reveal temperature of 98, blood pressure of 149/85, pulse rate of 85, respiratory rate of 18. LABORATORY DATA: Reveal white count of 17.7 down from 19 yesterday, hemoglobin of 12.5, hematocrit of 38.5, platelet count of 181. Most recent wound culture reveals Staphylococcus aureus growth. OBJECTIVE: Nonpalpable pedal pulses noted bilaterally. Capillary filling time less than 3 seconds to all digits. There is noted to be edema of the right forefoot, which is decreasing. Right foot presents with the plantar incision at the second metatarsal that measures approximately 4 cm. The incision site presents with no purulent drainage. There is noted to be only serous drainage. Base of the incision site remains primarily granular with some mixed fibrotic tissue. There is no malodor. There is an incision site on the dorsal aspect of the foot overlying the second metatarsal head that tunneled plantarly. This ulceration contains no purulence. The base of this incision site is primarily granular with mixed fibrotic tissues. ASSESSMENT: A 72-year-old diabetic male with severe right foot abscess that required emergent incision and drainage. Entire foot is decreasing in edema and erythema. PLAN: The patient's foot was examined. Packing was removed. The incision sites were flushed with copious amounts of normal sterile saline using a bulb syringe. The incision sites were gently packed with 1-inch iodoform packing. The foot was then covered with sterile 4x4 gauze, sterile abdominal pads, sterile Kerlix and paper tape. The patient's daughter, Geeta was called. She was told that if his wound count does not drop significantly over the next 48 hours, he will be brought into the OR again on Sunday by Dr. Baron for another incision and drainage procedure. The patient will be seen and followed daily while in-house. Walker Chowdhury DPM [facility] # [id number]
[2017-11-23] MEDS: Insulin Detemir 100 units/ml Vial (Levemir) SC SCH (21:57)
[2017-11-24] MEDS: Levalbuterol 0.63 MG/3 ML Inhal Soln UD IH SCH ×4 (01:09→21:00)
[2017-11-24] MEDS: Pantoprazole 40 mg EC Tab PO SCH (06:14)
[2017-11-24 07:13] LABS: HEMOGLOBIN 12.9 g/dL (14.0-18.0); MEAN CELL VOLUME 87.7 fl (80.0-105.0); MEAN CORPUSCULAR HEMOGLOBIN 28.8 pg (25.0-35.0); MEAN CORPUSCULAR HGB CONC 32.8 g/dl (31.0-37.0); MEAN PLATELET VOLUME 9.8 fl (7.0-11.0); RBC 4.48 10^6/uL (3.5-6.1); RED CELL DISTRIBUTION WIDTH 14.8 % (11.5-14.5); WHITE BLOOD COUNT 15.7 10^3/ul (4.5-11.0)
[2017-11-24 07:20] LABS: ALB/GLOB RATIO 0.6 (1.1-1.8); ALBUMIN 2.5 g/dL (3.0-4.8); ALT/SGPT 63 U/L (7-56); AST/SGOT 46 U/L (17-59); BLOOD UREA NITROGEN 22 mg/dL (7-21); CALCIUM 9.2 mg/dL (8.4-10.5); GFR AFRICAN-AMERICAN > 60; GFR NON-AFRICAN AMERICAN > 60
[2017-11-24] MEDS: Insulin Lispro (humaLOG) LOW Coverage SC SCH ×3 (10:17→17:20)
[2017-11-24] MEDS: Insulin Lispro 1 UNITS/0.01 ML SC SCH ×3 (10:17→17:20)
--- NOTE | 2017-11-24 10:18 | PN ---
DATE: SUBJECTIVE: A 72-year-old of diabetic male seen at bedside for continued evaluation and management of a slowly resolving severe right foot abscess that have undergone emergent incision and drainage. The patient is resting comfortably, has been afebrile and has no other complaints at this time. VITAL SIGNS: Temperature of 98, pulse rate of 85, blood pressure 149/85, respiratory rate 18. LABORATORY FINDINGS: Reveal downward trend of his white blood cell count from 17 7 to 15.7, hemoglobin is 12.9, hematocrit is 39.3, platelet count is 203,000. ESR is 65. OBJECTIVE: Nonpalpable pedal pulses noted bilaterally. Capillary filling time is less than 3 seconds to all digits. Right foot presents with incisions on the plantar aspect and dorsal aspect of the foot at the second metatarsal region. There is noted to be no purulence emanating from either of the incision sites, only serous drainage. There is no malodor. The entire forefoot is becoming less edematous and less erythematous with each passing day. The base of the incision sites are all primarily granular with some fibrotic tissue present. Upon gentle manipulation, no purulence was observed emanating from either incision site. ASSESSMENT: A 72-year-old diabetic male with slowly resolving severe right foot abscess. PLAN: The patient's foot was examined. Packing was removed. The incision sites were flushed with copious amounts of normal sterile saline using a bulb syringe. The incision sites were again gently packed with 1-inch iodoform packing. The foot was then covered with sterile 4x4 gauze, sterile abdominal pads, sterile Kerlix and paper tape. Once again, the patient's daughter was spoken with today and I stated that in all probability, he will be brought to the Operating Room on Sunday by Dr. Baron for a further washout and flush if his white count does not drop to within normal limits by tomorrow. Dr. Hernández's note was read and appreciated. We will continue with the IV antibiotics as per Infectious Disease. The patient will be seen and followed daily. We will keep him n.p.o. Sunday night in anticipation of his Sunday surgery. Walker Chowdhury DPM
--- NOTE | 2017-11-24 10:20 | CT ---
PROCEDURE: CT HEAD WITHOUT CONTRAST. HISTORY: ams COMPARISON: None available. TECHNIQUE: Axial computed tomography images were obtained through the head/brain without intravenous contrast. Radiation dose: Total exam DLP = 1045.79 mGy-cm. This CT exam was performed using one or more of the following dose reduction techniques: Automated exposure control, adjustment of the mA and/or kV according to patient size, and/or use of iterative reconstruction technique. FINDINGS: HEMORRHAGE: No intracranial hemorrhage. BRAIN: There is focal hypo attenuation noted at the left cerebellum measures 1.8 centimeter may represent subacute or old infarction. No evidence of mass effect or midline shift. No atrophy or chronic microvascular ischemic changes. VENTRICLES: Unremarkable. No hydrocephalus. CALVARIUM: Unremarkable. PARANASAL SINUSES: Unremarkable as visualized. No significant inflammatory changes. MASTOID AIR CELLS: Unremarkable as visualized. No inflammatory changes. OTHER FINDINGS: None. IMPRESSION: No evidence of acute intracranial hemorrhage mass effect or midline shift. Focal low attenuation noted at the left cerebellum may represent subacute or old infarction. Suboptimal study due to patient's motion.
--- NOTE | 2017-11-24 10:26 | CARD ---
APPROVED REPORT EKG Measurement Heart [id number] <Conclusion> Normal sinus rhythm Leftward axis NSSTW changes Mildly prolonged QTc
[2017-11-24] MEDS: Vancomycin 25 MG/ML PO SCH ×4 (10:43→21:53)
--- NOTE | 2017-11-24 11:08 | RAD ---
PROCEDURE: CHEST RADIOGRAPH, 1 VIEW HISTORY: Sepsis Patient COMPARISON: Comparison is made with 11/18/2017 FINDINGS: LUNGS: Mild pulmonary vascular congestion is noted. There is questionable focal opacity/infiltrate at the left lower lung. PLEURA: No pneumothorax or pleural fluid seen. CARDIOVASCULAR: Normal. OSSEOUS STRUCTURES: Bold fractures are again noted at the left ribs. VISUALIZED UPPER ABDOMEN: Normal. OTHER FINDINGS: None. IMPRESSION: Suboptimal study due to portable technique and patient's body habitus. Mild pulmonary vascular congestion. Questionable small focal opacity or infiltrate at the left lower lung.
--- NOTE | 2017-11-24 13:39 | PN ---
DATE: SUBJECTIVE: This is the first day I think I have seen him, actually looking well. He is alert. His eyes are wide open. He is eating better. He is stronger in bed and I am trying to get him out of bed. I know we have a place for him to go. Hopefully, on Sunday, we have to send him there. He is on aspirin, Benadryl, daptomycin, insulin, Levemir, Lopressor, Norvasc now, Protonix, Tylenol, Ultram, vancomycin orally, Xopenex. PHYSICAL EXAMINATION: VITAL SIGNS: He has a 98 temp, 69 pulse, 163/88 blood pressure, I gave him some Norvasc 2.5 one daily, respiratory rate is 18, it was as high as 26 and oxygen sat was 93 on 2 L. HEENT: His head is atraumatic, normocephalic. He is much more alert today than the other day. He is very lethargic. HEART: Regular rate. LUNGS: Decreased breath sounds, but clear. ABDOMEN: Morbidly obese, soft, nontender. Positive bowel sounds. EXTREMITIES: Bandaged. ASSESSMENT AND PLAN: He has multiple issues, sepsis, positive troponins, urinary tract infection, influenza, endocarditis, renal insufficiency, right foot ulcer. He is being seen by Podiatry, Infectious Disease, Endocrinology, Renal, Cardio. Chest x-ray: Mild pulmonary vascular congestion. Questionable small focal opacity infiltrate in the left lower lung. I gave him some Norvasc. We will increase his insulin, trying to get him out of bed to chair, trying to prepare him for discharge on Sunday to finish of the treatment. Reagan Mendez DO
--- NOTE | 2017-11-24 17:55 | PN ---
DATE: 11/24/2017 SUBJECTIVE: The patient is in bed in no acute distress, nontoxic. PHYSICAL EXAMINATION: VITAL SIGNS: Temperature is 98, blood pressure is 160/80, respiratory rate of 18. HEENT: Unremarkable. NECK: Supple. LUNGS: Have decreased breath sounds. HEART: Normal S1, S2. ABDOMEN: Soft, nontender. LABORATORY EXAMINATION: Reveals a white count of 15,700, hemoglobin of 12, platelets of 203. Coagulation is noted. Chemistries reveals a BUN of 22, creatinine of 1.0, procalcitonin 17.6 and urinalysis is noted and influenza A is positive. Microbiology reveals the blood cultures are negative at 48 hours from 11/22/2017. Prior to that, the patient had multiple MSSA sensitive staph aureus from the blood and also the patient did have MRSA from the wound. Repeat blood cultures from are both still positive. However, on , it became negative. Review of orders reveals the patient to be on daptomycin, which requires renewal, which I will do so.. The patient is also on p.o. vancomycin. The patient had a chest x-ray this morning, mild pulmonary vascular congestion. ASSESSMENT AND PLAN: A 72-year-old male who was seen earlier this morning with severe sepsis, acute renal failure due to sensitive staph aureus bacteremia with mitral valve endocarditis and right foot severe skin structure with methicillin-resistant Staphylococcus aureus infection, status post incision and drainage with right hallux infected ulcer and blood cultures from the are negative, which back the first day of affective therapy. Today is day #3 of 4-6 weeks of daptomycin with a weekly CBC, SMA-18, sed rate, C-reactive protein. We will follow closely with you. Patient did have a CAT scan of the head yesterday with no evidence of any acute changes. We will follow with you. Jesús Hu MD
[2017-11-24] MEDS: Insulin Detemir 100 units/ml Vial (Levemir) SC SCH (21:53)
[2017-11-25] MEDS: Insulin Lispro (humaLOG) LOW Coverage SC SCH ×5 (00:45→22:29)
[2017-11-25] MEDS: Levalbuterol 0.63 MG/3 ML Inhal Soln UD IH SCH ×4 (02:30→19:26)
[2017-11-25] MEDS: Pantoprazole 40 mg EC Tab PO SCH (05:18)
[2017-11-25 07:05] LABS: HEMOGLOBIN 11.7 g/dL (14.0-18.0); MEAN CORPUSCULAR HEMOGLOBIN 28.7 pg (25.0-35.0); MEAN CORPUSCULAR HGB CONC 32.6 g/dl (31.0-37.0); MEAN PLATELET VOLUME 9.5 fl (7.0-11.0); RBC 4.08 10^6/uL (3.5-6.1); RED CELL DISTRIBUTION WIDTH 14.9 % (11.5-14.5); WHITE BLOOD COUNT 12.9 10^3/ul (4.5-11.0)
[2017-11-25 07:07] LABS: ALB/GLOB RATIO 0.6 (1.1-1.8); ALBUMIN 2.4 g/dL (3.0-4.8); ALT/SGPT 57 U/L (7-56); AST/SGOT 38 U/L (17-59); BLOOD UREA NITROGEN 21 mg/dL (7-21); CALCIUM 9.1 mg/dL (8.4-10.5); GFR AFRICAN-AMERICAN > 60; GFR NON-AFRICAN AMERICAN > 60
[2017-11-25] MEDS: Insulin Lispro 1 UNITS/0.01 ML SC SCH ×3 (08:33→17:28)
[2017-11-25] MEDS: Vancomycin 25 MG/ML PO SCH ×4 (09:51→22:28)
[2017-11-25] MEDS ORDERED: DAPTOmycin 500 mg Inj (Cubicin) IV SCH (11:00)
--- NOTE | 2017-11-25 11:53 | PN ---
DATE: SUBJECTIVE: He is resting comfortably in bed. He is moving around in bed much better. He is in good spirits. Tomorrow, he is going to go to the ER with Podiatry to have another look at his right foot ulcer. He is on IV antibiotics. Need to have IV antibiotics for long-term. I believe, [facility] already has a place for him. MEDICATIONS: He is on aspirin, Benadryl, daptomycin, Humalog, Levemir, Lopressor, Norvasc, Protonix, Tylenol, Ultram, vancomycin, Xopenex. PHYSICAL EXAMINATION: VITAL SIGNS: He has a 98.3 temp, 68 pulse, 146/80 blood pressure, 20 respiratory rate, 94% O2 sat on room air. HEENT: His head is atraumatic, normocephalic. HEART: Regular rate. LUNGS: Decreased breath sounds, but clear. ABDOMEN: Soft, obese, nontender. EXTREMITIES: Right foot is bandaged. LABORATORY DATA: He has a 12.9 white count, steadily coming down; 11.7 hemoglobin; 35.9 hematocrit with 194 platelets. He has a 142 sodium, potassium 3.9, BUN 21, creatinine 1, GFR is greater than 60, sugar is 81, calcium is 9.1, total bili is 0.6, AST is 38, ALT is 57, alk phos 164, total protein 6.4. ASSESSMENT AND PLAN: Overall, he is improving. He is being seen by Infectious Disease, Podiatry, Endocrinology. He will need 4-6 weeks of daptomycin. He had mild pulmonary vascular congestion, possible focal opacity, infiltrate in the left lower lung. He is already on IV antibiotics. He will need to have a weekly CBC, SMA-18, sed rate and C-reactive protein at the facility he goes to and 4-6 weeks of daptomycin. Hopefully, after the procedure on Sunday with podiatry, we could arrange him to be discharged on Sunday to the facility. Toya Puckett who has a sepsis, positive troponins, urinary tract infection, endocarditis, renal insufficiency, right foot ulcer. Reagan Mendez DO [facility] # [id number]
--- NOTE | 2017-11-25 13:41 | CP.PCM.PN ---
<Yojana Casillas - Last Filed: 11/25/17 13:45> Subjective - Date & Time of Evaluation Date of Evaluation: 11/25/17 Time of Evaluation: 13:38 - Subjective Subjective: Podiatry Progress Note- Dr Baron 72 y/o male is seen at bedside 5 days s/p emergent incision and drainage of right foot abscess. Patient is seen resting in chair, in NAD and AA0x3. Patient reports that he slept well overnight and is not having any pain at this time to the right foot. Denies F/C/N/V/CP/SOB. Patient has no new pedal complaints at this time. Objective - Vital Signs/Intake and Output Vital Signs (last 24 hours): Temp Pulse Resp BP Pulse Ox 98.3 F 68 20 146/80 94 L 11/25/17 06:00 11/25/17 09:50 11/25/17 06:00 11/25/17 09:51 11/25/17 06:00 Intake and Output: 11/25/17 11/25/17 06:59 18:59 Intake Total 480 Output Total 1000 Balance -520 - Medications Medications: Current Medications Acetaminophen (Tylenol 325mg Tab) 650 mg PO Q6H PRN PRN Reason: Fever >100.4 F Amlodipine Besylate (Norvasc) 2.5 mg PO DAILY [facility] Last Admin: 11/25/17 09:51 Dose: 2.5 mg Aspirin (Aspirin Chewable) 81 mg PO DAILY [facility] Last Admin: 11/25/17 09:50 Dose: 81 mg Diphenhydramine HCl (Benadryl) 25 mg IVP Q6 PRN PRN Reason: Rash Daptomycin 750 mg/ Sodium (Chloride) 100 mls @ 200 mls/hr IV Q24H [facility] Stop: 12/23/17 11:16 Last Admin: 11/25/17 11:36 Dose: Not Given Insulin Detemir (Levemir) 42 unit SC HS [facility] Last Admin: 11/24/17 21:53 Dose: 42 unit Insulin Human Lispro (Humalog Low) 0 units SC ACHS [facility] PRN Reason: Protocol Last Admin: 11/25/17 11:49 Dose: Not Given Insulin Human Lispro (Humalog) 10 units SC AC [facility] Last Admin: 11/25/17 12:41 Dose: Not Given Levalbuterol HCl (Xopenex) 0.63 mg IH [id number] [facility] Last Admin: 11/25/17 07:52 Dose: 0.63 mg Levalbuterol HCl (Xopenex) 1.25 mg IH [id number] PRN PRN Reason: Shortness of Breath Metoprolol Tartrate (Lopressor) 25 mg PO BID [facility] Last Admin: 11/25/17 09:50 Dose: 25 mg Pantoprazole Sodium (Protonix Ec Tab) 40 mg PO 0600 [facility] Last Admin: 11/25/17 05:18 Dose: 40 mg Tramadol HCl (Ultram) 50 mg PO Q8H PRN PRN Reason: Pain, moderate (4-7) Last Admin: 11/25/17 10:08 Dose: 50 mg Vancomycin HCl (Vancocin 25 Mg/Ml (Oral Use)) 125 mg PO QID [facility] PRN Reason: Protocol Last Admin: 11/25/17 09:51 Dose: 125 mg - Labs Labs: 11/25/17 06:00 11/25/17 06:00 PT 11.9 SECONDS (9.4-12.5) 11/23/17 17:04 INR 1.04 (0.93-1.08) 11/23/17 17:04 APTT 19.6 Seconds (25.1-36.5) L 11/23/17 17:04 - Constitutional Appears: Well, Non-toxic, No Acute Distress - Extremities Exam Additional comments: Vasc: DP and PT non-palpable, temperature gradient is WNL, CFT < 3 seconds to all digits, moderate edema noted to the right forefoot Ortho: no pain with palpation to ulceration site, right healed partial ray amputation Neuro: gross and protective sensation diminished Derm: Two surgical incisions: #1 longitudinal surgical incision noted to the plantar aspect of the sub metatarsal 2 measuring approximately 4 x .3 cm and #2 surgical incision measuring approximately 2 cm x .3 cm on the dorsum of the foot. Incisions connect forming a tunnel through the forefoot. 1 inch iodoform packing present within wound bed - packing noted to be saturated with serosanguinous drainage upon removal. Wound base is a mixture of fibrotic and necrotic tissue. No active purulent drainage noted, minimal malodor, tunneling and tracking noted - Neurological Exam Neurological Exam: Alert, Awake, Oriented x3 - Psychiatric Exam Psychiatric exam: Normal Affect, Normal Mood Assessment and Plan - Assessment and Plan (Free Text) Assessment: 72 y/o male 5 days s/p emergent incision and drainage of right foot abscess, tunneling from dorsal to plantar forefoot Plan: -Patient examined and evaluated -Discussed with attending Dr. Baron -Charts, labs, vitals reviewed: leukocytosis down to 12.9, decreasing over last few days -Xray of right foot- possible OM, fracture right 2nd proximal phalanx, may be secondary to OM -packing removed, irrigation of the surgical site with copious amounts of saline solution -Wound re-packed with gauze, dsd, abd and kerlix -Patient may need to go for revisional I&D tomorrow, pending reevaluation of wound and AM CBC -drainage culture -MRSA on 11/19/17 -wound culture- S. Aureus on 11/19/17 -blood culture repear on 11/20 positive x2- gram positive cocci -c/w IV abx -will continue to follow while in house <Eileen Baron - Last Filed: 11/25/17 16:00> Objective - Vital Signs/Intake and Output Vital Signs (last 24 hours): Temp Pulse Resp BP Pulse Ox 98.3 F 68 20 146/80 94 L 11/25/17 06:00 11/25/17 09:50 11/25/17 06:00 11/25/17 09:51 11/25/17 06:00 Intake and Output: 11/25/17 11/25/17 06:59 18:59 Intake Total 480 Output Total 1000 Balance -520 - Medications Medications: Current Medications Acetaminophen (Tylenol 325mg Tab) 650 mg PO Q6H PRN PRN Reason: Fever >100.4 F Amlodipine Besylate (Norvasc) 2.5 mg PO DAILY [facility] Last Admin: 11/25/17 09:51 Dose: 2.5 mg Aspirin (Aspirin Chewable) 81 mg PO DAILY [facility] Last Admin: 11/25/17 09:50 Dose: 81 mg Diphenhydramine HCl (Benadryl) 25 mg IVP Q6 PRN PRN Reason: Rash Daptomycin 750 mg/ Sodium (Chloride) 100 mls @ 200 mls/hr IV Q24H [facility] Stop: 12/23/17 11:16 Last Admin: 11/25/17 11:36 Dose: Not Given Insulin Detemir (Levemir) 42 unit SC HS [facility] Last Admin: 11/24/17 21:53 Dose: 42 unit Insulin Human Lispro (Humalog Low) 0 units SC ACHS [facility] PRN Reason: Protocol Last Admin: 11/25/17 11:49 Dose: Not Given Insulin Human Lispro (Humalog) 10 units SC AC [facility] Last Admin: 11/25/17 12:41 Dose: Not Given Levalbuterol HCl (Xopenex) 0.63 mg IH [id number] [facility] Last Admin: 11/25/17 13:47 Dose: 0.63 mg Levalbuterol HCl (Xopenex) 1.25 mg IH [id number] PRN PRN Reason: Shortness of Breath Metoprolol Tartrate (Lopressor) 25 mg PO BID [facility] Last Admin: 11/25/17 09:50 Dose: 25 mg Pantoprazole Sodium (Protonix Ec Tab) 40 mg PO 0600 [facility] Last Admin: 11/25/17 05:18 Dose: 40 mg Tramadol HCl (Ultram) 50 mg PO Q8H PRN PRN Reason: Pain, moderate (4-7) Last Admin: 11/25/17 10:08 Dose: 50 mg Vancomycin HCl (Vancocin 25 Mg/Ml (Oral Use)) 125 mg PO QID [facility] PRN Reason: Protocol Last Admin: 11/25/17 15:03 Dose: 125 mg - Labs Labs: 11/25/17 06:00 11/25/17 06:00 PT 11.9 SECONDS (9.4-12.5) 11/23/17 17:04 INR 1.04 (0.93-1.08) 11/23/17 17:04 APTT 19.6 Seconds (25.1-36.5) L 11/23/17 17:04 Attending/Attestation - Attestation I have personally seen and examined this patient.: Yes I have fully participated in the care of the patient.: Yes I have reviewed all pertinent clinical information, including history, physical exam and plan: Yes
--- NOTE | 2017-11-25 13:42 | PN ---
DATE: SUBJECTIVE: The patient is in bed, in no acute distress, nontoxic. PHYSICAL EXAMINATION VITAL SIGNS: Temperature is 98, blood pressure is 140/80, respiratory rate 20. HEENT: Unremarkable. NECK: Supple. LUNGS: Decreased breath sounds. HEART: Normal S1 and S2. ABDOMEN: Soft. LABORATORY DATA: Reveals a white count of 12,900, hemoglobin of 11, platelets of 194,000. Chemistries reveals a BUN of 21, creatinine of 1.0. Urinalysis is as noted. Serology is noted to be positive for influenza. MEDICATIONS: Review of medications reveals the patient to be on p.o. vancomycin and daptomycin was discontinued by pharmacy. The patient had a chest x-ray yesterday, which shows pulmonary congestion. ASSESSMENT AND PLAN: This is a 72-year-old male seen earlier today in [facility], bed 2 for severe sepsis, acute renal failure due to sensitive Staphylococcus aureus bacteremia, mitral valve endocarditis and right foot severe skin structure with methicillin resistant Staphylococcus aureus and status post incision and drainage of the right hallux, infected ulcer. Review of blood cultures reveals the blood cultures now are negative from the . He did have persistent bacteremia from the to the and we will restart the daptomycin and today is day #4 of antibiotics; we would recommend 4 to 6 weeks of daptomycin with a weekly CBC, CMP, sedimentation rate, C-reactive protein, CPK and we will restart the daptomycin. The patient's review of Microbiology reveals the stool C. diff is still pending, not collected. The patient is on p.o. vancomycin and review of the medications reveal the patient was given Tamiflu treatment. Jesús Hu MD
--- NOTE | 2017-11-25 17:47 | PN ---
DATE: ENDOCRINOLOGY FOLLOWUP NOTE LOCATION: Room 364. SUBJECTIVE: This is a 72-year-old male with recent uncontrolled type 2 insulin-requiring diabetes, now being followed closely for metabolic management. 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 His glycemic levels are fluctuating but much improved at this time and the latest glucose levels have ranged from 81 to 118 and 164 mg/dL. His latest chemistry showed a BUN of 21, sodium 142, potassium 3.9, chloride 105, CO2 of 33, glucose 114, and creatinine 1.0. So, at this time, we will continue the same basal and bolus insulin regimen to allow for dose equilibration and keep him on the Humalog given as 10 units subcu t.i.d. before meals as ordered. We will continue also the Levemir given as 40 units subcu at bedtime daily as given. We will titrate incrementally as indicated to optimize metabolic control. We will follow and advise accordingly. Carolyn Murdock MD
[2017-11-25] MEDS: Insulin Detemir 100 units/ml Vial (Levemir) SC SCH (22:28)
[2017-11-26] MEDS: Levalbuterol 0.63 MG/3 ML Inhal Soln UD IH SCH ×4 (01:16→19:55)
[2017-11-26] MEDS: Pantoprazole 40 mg EC Tab PO SCH (05:59)
--- NOTE | 2017-11-26 08:05 | PN ---
DATE: 11/26/2017 PULMONARY NOTE SUBJECTIVE: The patient appears comfortable this morning. He is not short of breath at rest. He is awake and alert. PHYSICAL EXAMINATION: VITAL SIGNS: (Last noted in the computer): Temperature is 97.9, pulse 67, respirations this morning 18, blood pressure is 149/83. Oxygen saturation on nasal cannula is 94%. HEENT: Normocephalic, atraumatic. NECK: No JVD. CARDIOVASCULAR: Systolic ejection murmur at the lower left sternal border. No S3 gallop. LUNGS: Decreased breath sounds at the bases. Very minimal rhonchi. No wheezing. EXTREMITIES: The right foot is now wrapped. There is mild edema noted in both legs. No cyanosis or clubbing. Calves are nontender to palpation. GI: Abdomen is soft, nontender and nondistended. Bowel sounds are positive. SKIN: No acute rash. NEUROLOGIC: Exam limited at the present time. PERTINENT LABORATORY DATA: Chest x-ray was done on 11/24/2017 and reviewed. There is a mild increase in pulmonary vascular congestion. There are no significant changes at the bases compared to previous films. IMPRESSION: 1. Right foot abscess, status post surgery. 2. Sepsis syndrome. 3. Acute renal failure, resolved. 4. Mild vascular congestion-on chest x-ray. 5. Mild bronchospasm. 6. Mild anemia. PLAN: The patient appears comfortable this morning. He is not short of breath at rest. He does state to feeling much better overall. I did review the last chest x-ray as above. The chest x-ray shows mild pulmonary vascular congestion. There are no significant changes at the bases-compared to previous films. On physical exam, there is only minimal bronchospasm noted. In addition, there is no significant alveolar-arterial gradient. I will continue the current nebulizer treatments for now. The patient remains on antibiotic therapy-as per Infectious Disease. Input by Dr. Hu is noted. The temperatures have now fully resolved. The leukocytosis is also resolving. Inputs by Podiatry and Endocrine are also noted. Clinical status of the patient is significantly improved-compared to the initial presentation. His overall status does appear somewhat guarded. I will discuss the above with Dr. Mendez. Baljinder Dejesus MD [facility] # [id number] [place]
--- NOTE | 2017-11-26 08:49 | CON ---
DATE: 11/23/2017 CHIEF COMPLAINT: Lethargy. HISTORY OF PRESENTING ILLNESS: This is a 72-year-old man with past medical history of hypertension, history of type 2 diabetes mellitus, was admitted because of an infected right hallux ulceration gangrene and had a febrile episode along with diffuse cutaneous rash and was having hyperglycemic accelerations, was called for lethargy. Endocrine on board. The patient feels that he is easily fatigable and tired. He had low systolic and diastolic blood pressures as well as trace of hypoglycemic accelerations and drop in blood glucose on 11/21/2017, which was 44 and 48 and then spike in blood glucose again. In addition, he has had drop in systolic and diastolic blood pressures ranging from 91 to 130 systolic and diastolic 50s to 70s. Apparently, he is doing well. He answers my questions appropriately. Slightly slow attention span, but follows all commands. PAST MEDICAL HISTORY: History of hypertension and diabetes. SOCIAL HISTORY: No illicit drug use, smoking, or EtOH abuse at this time. He had nicotine dependence, but quit over 30 years. REVIEW OF SYSTEMS: A 14-point review of systems negative except as per in the HPI. FAMILY HISTORY: Noncontributory. ALLERGIES: ALLERGIC TO KIWI AND STRAWBERRIES. MEDICATIONS: Reviewed by nurse per reconciliation sheet. LABORATORY DATA: Sodium 138, potassium 4, chloride 105, carbon dioxide 28. BUN of 23, creatinine 1. Random glucose 186. He also was positive for influenza type A and B on 11/19/2017. PHYSICAL EXAMINATION: VITAL SIGNS: Temperature 98, pulse rate 85, blood pressure of 116/54, respiratory rate of 18, oxygen saturation 96% by room air. GENERAL: The patient is sitting up in bed, in no acute distress. HEENT: Atraumatic, normocephalic. PERRLA. Extraocular muscles intact. NECK: Supple. No JVD. No adenopathy noted. LUNGS: Clear to auscultation. No adventitious sounds. HEART: S1, S2. Normal rate and rhythm. No murmurs, rubs, or gallops. ABDOMEN: Soft, nontender, and nondistended. Bowel sounds are present. EXTREMITIES: No clubbing. No cyanosis, but has a healed stump in the right hallux area from the recent amputation of the toe. Pulses 2+ felt bilaterally. He has neuropathic ulceration in the plantar surface of the right foot. NEUROLOGIC: The patient is alert and oriented to person, place, and year. Recall after 5 minutes is 0/3. Poor attention span. Slow thought process. Cranial nerves II through XII intact. Motor exam: Moves all extremities equally. No pronator drift seen. Sensory exam: Decreased light touch and pinprick up to the calves bilaterally. Decreased vibration of the toes. DTRs are 2+ throughout, 1 at both knees, and absent at the ankles. Coordination: [id number] intact. Gait is deferred for now. ASSESSMENT: This is a 72-year-old man with history of uncontrolled decompensated type 2 diabetes mellitus with marked hyperglycemic accelerations related to subtherapeutic insulin and was presented here with an infected right foot neuropathic plantar ulcer and has evidence of diabetic microvascular complications of retinopathy, polyneuropathy, nephropathy, and progressive renal insufficiency, superimposed underlying also influenza flu and had low systolic and diastolic blood pressures in addition to hyperglycemic accelerations and events of hypoglycemia were seen as well on 11/21/2017, and was consulted for lethargy. Lethargy is most likely secondary to underlying toxic metabolic encephalopathy from his underlying chronic medical conditions. RECOMMENDATIONS: At this time, recommend: 1. Keep his blood sugars between 140 to 180 and follow Endocrine's regimen. 2. Aspirin 81 mg for stroke prevention. 3. Keep his systolic blood pressure between 120 to 130 and diastolic 70 to 80s. 4. We will get a CAT scan of the head to see any acute intracranial abnormality. 5. Continue to monitor electrolytes and correct accordingly with hydration and will likely recommend PT at subacute rehab. Thank you for this consult. John Raymond MD
--- NOTE | 2017-11-26 09:07 | PN ---
DATE: 11/24/2017 ENDOCRINOLOGY FOLLOWUP NOTE LOCATION: ICU 128, room 4. This is a 72-year-old male with recent uncontrolled type 2 insulin-requiring diabetes, now being followed closely for metabolic management. He has ongoing IV antibiotic therapy for lower extremity neuropathic foot ulceration as noted. His oral intake remains variable, but has improved as per the patient. His glycemic levels have also improved overnight and are ranging from 95 to 165 mg/dL. His latest chemistry shows a BUN of 22, sodium 139, potassium 4.2, chloride 104, CO2 of 31, glucose 187 and creatinine 1.0. So at this time, we will continue the same basal and bolus insulin regimen to allow for dose equilibration and keep him on the Humalog given as 8 units subcutaneous t.i.d. before meals as ordered. We will also continue the Levemir given as basal insulin overnight at 40 units subcutaneous at bedtime daily as given. We will titrate incrementally as indicated to optimize metabolic control. We will follow and advise accordingly. Carolyn Murdock MD
[2017-11-26] MEDS: Insulin Lispro 1 UNITS/0.01 ML SC SCH ×3 (09:19→18:12)
[2017-11-26] MEDS: Insulin Lispro (humaLOG) LOW Coverage SC SCH ×4 (09:20→21:25)
[2017-11-26] MEDS: Vancomycin 25 MG/ML PO SCH ×4 (09:23→21:55)
[2017-11-26 10:00] LABS: ALB/GLOB RATIO 0.6 (1.1-1.8); ALBUMIN 2.6 g/dL (3.0-4.8); ALT/SGPT 47 U/L (7-56); AST/SGOT 37 U/L (17-59); BLOOD UREA NITROGEN 21 mg/dL (7-21); CALCIUM 9.4 mg/dL (8.4-10.5); GFR AFRICAN-AMERICAN > 60; GFR NON-AFRICAN AMERICAN > 60
--- NOTE | 2017-11-26 11:26 | PN ---
DATE: 11/26/2017 CARDIOLOGY FOLLOWUP SUBJECTIVE: The patient is in bed. No dyspnea. No chest pain. PHYSICAL EXAMINATION: VITAL SIGNS: Blood pressure varies from 149-170 systolic, heart rates in the 60s. NECK: Negative JVD. LUNGS: Without rales. HEART: Reveals S1, S2. EXTREMITIES: Without edema. LABORATORY DATA: White count is 12.9, hemoglobin is 11.7. Chemistries: Glucose is 115. IMPRESSION: 1. Sepsis from the foot ulcer. 2. Endocarditis. 3. History of [id number] myocardial infarction. 4. Renal insufficiency. PLAN: Given these findings, the patient is for the OR again today. We will repeat an echocardiogram in another week to evaluate the vegetation. Riccardo Whitehead MD
--- NOTE | 2017-11-26 13:33 | CP.PCM.PN ---
Subjective - Date & Time of Evaluation Date of Evaluation: 11/26/17 Time of Evaluation: 13:31 - Subjective Subjective: Podiatry Progress Note- Dr. Baron 72 y/o male seen and examined this morning prior to right foot wound debridement later this afternoon. Pt is aware that the wound needs further cleaning before he is discharged to rehab. States he is agreeable to proceed at this time. Confirms NPO status after breakfast this morning. Denies any new pedal complaints. States his pain in the right foot is well controlled with current medications. Denies F/C/N/V/CP/SOB. Objective - Vital Signs/Intake and Output Vital Signs (last 24 hours): Temp Pulse Resp BP Pulse Ox 98.2 F 69 20 171/84 H 95 11/26/17 08:26 11/26/17 09:20 11/26/17 08:26 11/26/17 09:22 11/26/17 08:26 Intake and Output: 11/26/17 11/26/17 06:59 18:59 Intake Total 540 Output Total 1100 Balance -560 - Medications Medications: Current Medications Acetaminophen (Tylenol 325mg Tab) 650 mg PO Q6H PRN PRN Reason: Fever >100.4 F Amlodipine Besylate (Norvasc) 2.5 mg PO DAILY [facility] Last Admin: 11/26/17 09:22 Dose: 2.5 mg Aspirin (Aspirin Chewable) 81 mg PO DAILY [facility] Last Admin: 11/26/17 09:19 Dose: Not Given Diphenhydramine HCl (Benadryl) 25 mg IVP Q6 PRN PRN Reason: Rash Daptomycin 750 mg/ Sodium (Chloride) 100 mls @ 200 mls/hr IV Q24H [facility] Stop: 12/23/17 11:16 Last Admin: 11/26/17 11:11 Dose: 200 mls/hr Insulin Detemir (Levemir) 42 unit SC HS [facility] Last Admin: 11/25/17 22:28 Dose: 42 unit Insulin Human Lispro (Humalog Low) 0 units SC ACHS [facility] PRN Reason: Protocol Last Admin: 11/26/17 11:48 Dose: Not Given Insulin Human Lispro (Humalog) 10 units SC AC [facility] Last Admin: 11/26/17 11:48 Dose: Not Given Levalbuterol HCl (Xopenex) 0.63 mg IH [id number] [facility] Last Admin: 11/26/17 13:17 Dose: 0.63 mg Levalbuterol HCl (Xopenex) 1.25 mg IH [id number] PRN PRN Reason: Shortness of Breath Metoprolol Tartrate (Lopressor) 25 mg PO BID [facility] Last Admin: 11/26/17 09:20 Dose: 25 mg Pantoprazole Sodium (Protonix Ec Tab) 40 mg PO 0600 [facility] Last Admin: 11/26/17 05:59 Dose: 40 mg Tramadol HCl (Ultram) 50 mg PO Q8H PRN PRN Reason: Pain, moderate (4-7) Last Admin: 11/25/17 10:08 Dose: 50 mg Vancomycin HCl (Vancocin 25 Mg/Ml (Oral Use)) 125 mg PO QID [facility] PRN Reason: Protocol Last Admin: 11/26/17 09:23 Dose: 125 mg - Labs Labs: 11/25/17 06:00 11/26/17 09:40 PT 11.9 SECONDS (9.4-12.5) 11/23/17 17:04 INR 1.04 (0.93-1.08) 11/23/17 17:04 APTT 19.6 Seconds (25.1-36.5) L 11/23/17 17:04 - Constitutional Appears: Well, Non-toxic, No Acute Distress - Extremities Exam Additional comments: dressing is clean dry and intact to R foot no strikethrough noted on bandage - Neurological Exam Neurological Exam: Alert, Awake, Oriented x3 - Psychiatric Exam Psychiatric exam: Normal Affect, Normal Mood Assessment and Plan - Assessment and Plan (Free Text) Assessment: 72 y/o male with right foot diabetic ulceration with sinus tract from dorsal to plantar foot at level of 2nd metatarsal head Plan: Pt seen and evaluated in pre-op with attending Dr. Baron All risks, benefits, alternatives and complications discussed with patient Surgical consent obtained and in chart NPO status confirmed after 8:30am Pt to go to OR for wound debridement with [facility] will continue to follow Upon discharge, pt to receive wound care at sub acute rehab -packing to be removed, wound to be cleaned with saline and re-packed with 1/ 4" iodoform packing, dressed with ABD and DSD -pt to follow up in wound care center within 1 week of hospital discharge with Dr. Baorn/Luciana
[2017-11-26] MEDS ORDERED: HYDROmorphone 0.5 mg/0.5 ml ISec IVP PRN (16:27)
[2017-11-26] MEDS ORDERED: Sodium Chloride 0.9% 1,000 ML IV SCH (16:30)
[2017-11-26] MEDS ORDERED: Lidocaine 2% Inj (20ml) ONE (16:31)
[2017-11-26] MEDS ORDERED: Midazolam 2 MG/2 ML VIAL ONE (16:33)
[2017-11-26] MEDS ORDERED: Gentamicin 80 mg/2mL Inj. ONE (16:36)
--- NOTE | 2017-11-26 19:04 | PN ---
DATE: ENDOCRINOLOGY FOLLOWUP NOTE LOCATION: Room 364. SUBJECTIVE: This is a 72-year-old male with recent uncontrolled type 2 insulin-requiring diabetes, now being followed closely for metabolic management. His glycemic levels are fluctuating but much improved at this time and the latest glucose levels have ranged from 115 to 149 and 218 at bedtime last night. His latest chemistry showed a BUN of 21, sodium 139, potassium 4.2, chloride 101, CO2 of 33, glucose 135, and creatinine 1.1. He is receiving IV antibiotic management and local debridement for a lower extremity diabetic foot ulceration as noted thereof. So, at this time, we will continue the modified basal and bolus insulin regimen and continue the basal insulin given as Levemir at 42 units subcu at bedtime daily as ordered. We will continue the Humalog given as 10 units subcu t.i.d. before meals as ordered. We will titrate incrementally as indicated to optimize metabolic control. We will follow and advise accordingly. Carolyn Murdock MD
[2017-11-26] MEDS: Insulin Detemir 100 units/ml Vial (Levemir) SC SCH (21:26)
[2017-11-27] MEDS: Levalbuterol 0.63 MG/3 ML Inhal Soln UD IH SCH ×4 (02:10→19:10)
--- NOTE | 2017-11-27 05:23 | PN ---
DATE: SUBJECTIVE: I saw him resting comfortably in bed. He is improving. Podiatry had seen him yesterday. They said they might possibly do an I and D, but did not put any orders in for n.p.o. so we put the orders in for n.p.o. this morning because in case they are going to take him for a procedure. Also, he is on IV antibiotics. We are hoping to get him up today or tomorrow to subacute rehab to finish his six weeks of IV antibiotics. He is comfortable with that. He is alert. He is eating better. He is moving better. He is much improved. PHYSICAL EXAMINATION VITAL SIGNS: He has 97.9 temperature, 67 pulse, 149/83 blood pressure, 20 respiratory rate, 94% O2 saturation on 2 liters nasal cannula. HEENT: Head is atraumatic and normocephalic. HEART: Regular rate. LUNGS: Decreased breath sounds, but clear. ABDOMEN: Soft, morbidly obese, nontender. Positive bowel sounds. EXTREMITIES: His right foot is bandaged. LABORATORY DATA: His last blood sugar was 115 yesterday. Sodium 142, potassium 3.9, BUN 21, creatinine 1. GFR is greater than 60. Calcium is 9.1, total bili is 0.6, AST is 38, ALT is 57, alkaline phosphatase 164, total protein 6.4. They have a 12.9 white count that is what it has been, that was yesterday, so today's is 11.7 hemoglobin, 35.9 hematocrit with 194,000 platelets. MEDICATIONS: He is currently on aspirin, Benadryl, daptomycin, insulin, Levemir, Lopressor, Norvasc, pantoprazole, Tylenol, Ultram, vancomycin, Xopenex. Podiatry: If the Podiatry is not going to do procedure today, then I will plan on going to subacute rehab. I will do the procedure today, then we will work on discharging him tomorrow. I will see what Podiatry wants to do when they come in. The patient is n.p.o. Preparing for possible procedure. We will check his labs tomorrow. I will discuss with Case Management and social media marketing analyst about discharge planning soon. The patient had multiple issues from sepsis, positive troponins, non-STEMI, left lower lobe pneumonia, UTI, endocarditis of the mitral valve, right foot ulcer and renal insufficiency. Reagan Mendez DO
[2017-11-27] MEDS: Pantoprazole 40 mg EC Tab PO SCH (05:51)
[2017-11-27 07:03] LABS: ALB/GLOB RATIO 0.6 (1.1-1.8); ALBUMIN 2.4 g/dL (3.0-4.8); ALT/SGPT 45 U/L (7-56); AST/SGOT 40 U/L (17-59); BLOOD UREA NITROGEN 20 mg/dL (7-21); CALCIUM 8.9 mg/dL (8.4-10.5); GFR AFRICAN-AMERICAN > 60; GFR NON-AFRICAN AMERICAN 54
[2017-11-27 07:39] LABS: HEMOGLOBIN 11.5 g/dL (14.0-18.0); MEAN CELL VOLUME 89.1 fl (80.0-105.0); MEAN CORPUSCULAR HEMOGLOBIN 29.2 pg (25.0-35.0); MEAN CORPUSCULAR HGB CONC 32.8 g/dl (31.0-37.0); RBC 3.94 10^6/uL (3.5-6.1); RED CELL DISTRIBUTION WIDTH 14.7 % (11.5-14.5); WHITE BLOOD COUNT 15.2 10^3/ul (4.5-11.0)
[2017-11-27] MEDS: Insulin Lispro (humaLOG) LOW Coverage SC SCH ×3 (08:40→18:40)
[2017-11-27] MEDS: Insulin Lispro 1 UNITS/0.01 ML SC SCH ×3 (08:41→16:28)
[2017-11-27] MEDS: Vancomycin 25 MG/ML PO SCH ×3 (09:03→17:30)
--- NOTE | 2017-11-27 09:29 | PN ---
DATE: 11/27/2017 PULMONARY NOTE SUBJECTIVE: The patient appears very comfortable this morning. He is not short of breath at rest. PHYSICAL EXAMINATION: VITAL SIGNS: (last noted in the computer): Temperature is 98.1, pulse 67, respirations 18, blood pressure 170/81. Oxygen saturation on nasal cannula is 98%. HEENT: Normocephalic, atraumatic. No JVD. CARDIOVASCULAR: Systolic ejection murmur at the lower left sternal border. No S3 gallop. LUNGS: Decreased breath sounds at the bases. No rhonchi or wheezing this morning. EXTREMITIES: The right foot remains wrapped. There is mild edema in both legs. There is no cyanosis or clubbing. Calves are nontender to palpation. GI: Abdomen is soft, nontender and nondistended. Bowel sounds are positive. SKIN: No acute rash. NEUROLOGIC: Limited at the present time. IMPRESSION: 1. Right foot abscess, status post surgery. 2. Sepsis syndrome. 3. Acute renal failure - resolved. 4. Mild vascular congestion - on chest x-ray. 5. Mild bronchospasm - resolved. 6. Mild anemia. PLAN: The patient appears very comfortable this morning. He is not short of breath at rest. He does state to feeling much better overall. On physical exam, his bronchospasm has primarily resolved. In addition, the oxygen saturation on nasal cannula is now 98%. I will continue with the current nebulizer treatments for now. The patient remains on antibiotic therapy - as per Infectious Disease. The temperatures have resolved. Podiatry evaluation is also noted. The patient is for discharge to a subacute rehab facility in the very near future. I would continue with the nebulizer treatments for now. At this point in time, no additional pulmonary intervention is needed or warranted. I will thus follow up on this case again - as requested. Please call me for any additional pulmonary questions or problems with this patient. Thank you for allowing me to participate in the care of this patient. Baljinder Dejesus MD [facility]
--- NOTE | 2017-11-27 11:27 | CP.PCM.PN ---
Subjective - Date & Time of Evaluation Date of Evaluation: 11/27/17 Time of Evaluation: 11:24 - Subjective Subjective: 72 y/o male seen and examined at bedside this morning 1 day s/p debridement of right foot diabetic ulceration with sinus tract. Pt denies any acute events overnight and slept well. Denies F/C/N/V/CP/SOB. Is currently awaiting discharge to rehab some time today. States he is not having any pain in the right foot at this time, and his dressing has remained intact since the surgery yesterday afternoon. Objective - Vital Signs/Intake and Output Vital Signs (last 24 hours): Temp Pulse Resp BP Pulse Ox 98.3 F 72 20 157/84 H 97 11/27/17 08:36 11/27/17 09:04 11/27/17 08:36 11/27/17 09:04 11/27/17 08:36 Intake and Output: 11/27/17 11/27/17 06:59 18:59 Intake Total 880 Output Total 400 Balance 480 - Medications Medications: Current Medications Acetaminophen (Tylenol 325mg Tab) 650 mg PO Q6H PRN PRN Reason: Fever >100.4 F Amlodipine Besylate (Norvasc) 2.5 mg PO DAILY [facility] Last Admin: 11/27/17 09:04 Dose: 2.5 mg Aspirin (Aspirin Chewable) 81 mg PO DAILY [facility] Last Admin: 11/27/17 09:04 Dose: 81 mg Diphenhydramine HCl (Benadryl) 25 mg IVP Q6 PRN PRN Reason: Rash Daptomycin 750 mg/ Sodium (Chloride) 100 mls @ 200 mls/hr IV Q24H [facility] Stop: 12/23/17 11:16 Last Admin: 11/26/17 11:11 Dose: 200 mls/hr Insulin Detemir (Levemir) 42 unit SC HS [facility] Last Admin: 11/26/17 21:26 Dose: Not Given Insulin Human Lispro (Humalog Low) 0 units SC ACHS [facility] PRN Reason: Protocol Last Admin: 11/27/17 08:40 Dose: Not Given Insulin Human Lispro (Humalog) 10 units SC AC [facility] Last Admin: 11/27/17 08:41 Dose: 10 units Levalbuterol HCl (Xopenex) 0.63 mg IH [id number] [facility] Last Admin: 11/27/17 07:46 Dose: 0.63 mg Levalbuterol HCl (Xopenex) 1.25 mg IH [id number] PRN PRN Reason: Shortness of Breath Metoprolol Tartrate (Lopressor) 25 mg PO BID [facility] Last Admin: 11/27/17 09:04 Dose: 25 mg Pantoprazole Sodium (Protonix Ec Tab) 40 mg PO 0600 [facility] Last Admin: 11/27/17 05:51 Dose: 40 mg Tramadol HCl (Ultram) 50 mg PO Q8H PRN PRN Reason: Pain, moderate (4-7) Last Admin: 11/27/17 09:03 Dose: 50 mg Vancomycin HCl (Vancocin 25 Mg/Ml (Oral Use)) 125 mg PO QID [facility] PRN Reason: Protocol Last Admin: 11/27/17 09:03 Dose: 125 mg - Labs Labs: 11/27/17 05:30 11/27/17 05:30 PT 11.9 SECONDS (9.4-12.5) 11/23/17 17:04 INR 1.04 (0.93-1.08) 11/23/17 17:04 APTT 19.6 Seconds (25.1-36.5) L 11/23/17 17:04 - Constitutional Appears: Well, Non-toxic, No Acute Distress - Extremities Exam Additional comments: RLE focused exam: Post surgical dressing remains clean, dry and intact to R foot No strikethrough noted to bandage No tenderness to palpation of RLE - Neurological Exam Neurological Exam: Alert, Awake, Oriented x3 - Psychiatric Exam Psychiatric exam: Normal Affect, Normal Mood Assessment and Plan - Assessment and Plan (Free Text) Assessment: 72 y/o male 1 day s/p wound debridement of right diabetic foot ulceration with sinus tract Plan: Pt seen and evaluated at bedside Discussed with attending Dr. Chowdhury Labs and vitals reviewed- afebrile, WBC 15.2 Continue abx as per ID Post-surgical dressing left intact at this time Wound care instructions for subacute rehab as follows: -Packing to be removed and wound flushed with sterile saline -Gentle 1/4" iodoform packing as needed to sinus tract -Dress RLE with ABD and DSD Pt to follow up in wound care center within one week of hospital discharge with Dr. Baron/Luciana
--- NOTE | 2017-11-27 13:50 | DS ---
HISTORY OF PRESENT ILLNESS: I saw him resting comfortably in bed. He is willing to go to [facility] to continue his IV antibiotics for his issues. He has sepsis, NSTEMI, UTI, endocarditis, right foot ulcer. He will need 4-5 weeks more of IV antibiotics. There has been a problem with his IV antibiotics as it was too expensive. I have discussed it with the Infectious Disease this morning, Dr. Hernández, to change his antibiotics around, so he can possibly go to a different subacute rehab. PHYSICAL EXAMINATION: VITAL SIGNS: 98.2 temp, 72 pulse, 157/84 blood pressure, 20 respiratory rate, 97% O2 sat on room air. HEENT: His head is atraumatic, normocephalic. HEART: Regular rate. LUNGS: Clear to auscultation. ABDOMEN: Soft, obese, nontender. EXTREMITIES: He has got a right foot bandaged from an ulcer. Hopefully, he can be discharged today. I will discuss with Case Management and social services director. Continue with the same medications, but the IV antibiotics will be changed. LABORATORY DATA: He has a 15.2 white count, 11.5 hemoglobin, 35.1 hematocrit with 194 platelets. He has a 137 sodium, potassium 4.5, BUN 20, creatinine 1.3, GFR is 54, sugar is 152, calcium is 8.9, total bili is 0.6, AST is 40, ALT is 45, alk phos 177, total protein 6.7. ASSESSMENT AND PLAN: He has been seen by Pulmonary, Endocrinology, Cardiology, Infectious Disease. He got a right foot abscess, status post surgery; sepsis syndrome; acute renal failure, which is improved; vascular congestion; anemia; endocarditis. Reagan Mendez DO
--- NOTE | 2017-11-27 15:26 | OP ---
PROCEDURE DATE: 11/26/2017 PREOPERATIVE DIAGNOSIS: Right foot diabetic ulceration with sinus tract. POSTOPERATIVE DIAGNOSIS: Right foot diabetic ulceration with sinus tract. PROCEDURE: Right foot wound debridement with Misonix. SURGEON: Eileen Baron DPM BROADCAST SYSTEMS ENGINEER: Yojana Casillas DPM, PGY-1 TYPE OF ANESTHESIA: IV sedation plus local. ANESTHESIA ADMINISTERED BY: Jael Simon MD INDICATION: The patient is a 72-year-old male with the above diagnosis. The patient has exhausted all conservative treatment at this time and now requires surgical intervention. The patient signed the consent after careful explanation of risks, benefits, complications, and alternatives for surgical procedure. No guarantees were given nor implied. N.p.o. status was confirmed prior to taking the patient to the operating room. PREPARATION: The patient was brought into the operating room and placed on the operating room table in a supine position. Time-out was performed for the identification of the correct patient and procedure. After induction of IV sedation, 16 mL of 2% lidocaine plain was administered in an ankle block fashion to the right lower extremity. The right lower extremity was then prepped and draped in normal sterile manner and the procedure began. No tourniquet was used during the procedure. DESCRIPTION OF PROCEDURE: Attention was then directed to the plantar aspect of the left foot where a non-healing wound measuring approximately 1 cm x 1.8 cm x 1 cm was present. An additional ulceration was noted to the dorsal aspect of the foot at the level of the 2nd metatarsal head, measuring approximately 1cm x 1.2cm x 1cm. The two ulcerations were noted to connect, forming a sinus tract. At this time, a sterile #15 blade and forceps were utilized to excise all superficial necrotic and fibrotic tissue from the wound bed and wound margins of both dorsal and plantar entrances to the right foot sinus tract. Next, using the Misonix debridement probe on setting 7, the ulcerations and sinus tract was excisionally debrided of all remaining fibrotic and nonviable tissue until fresh and healthy bleeding granular tissue appeared. The sinus tract was then packed with 0.25-inch iodoform packing and dressed with abdominal pads, a dry sterile dressing and a light Ken bandage. POSTOPERATIVE CONDITION: The patient tolerated the anesthesia and procedure well and was escorted to the recovery room with vital signs stable and neurovascular status intact to the right lower extremity. The patient will be discharged to subacute rehab and is instructed to follow up with Dr. Baron or Dr. Chowdhury in the Wound Care Center at [facility] within one week of discharge. Yojana Casillas DPM Eileen Baron DPM [facility]
--- NOTE | 2017-11-27 17:22 | CP.PCM.PN ---
Subjective - Date & Time of Evaluation Date of Evaluation: 11/27/17 Time of Evaluation: 10:55 - Subjective Subjective: Getting his midline, no fevers, less pain on the right foot. Objective - Vital Signs/Intake and Output Vital Signs (last 24 hours): Temp Pulse Resp BP Pulse Ox 98.3 F 72 20 157/84 H 97 11/27/17 08:36 11/27/17 09:04 11/27/17 08:36 11/27/17 09:04 11/27/17 08:36 Intake and Output: 11/27/17 11/27/17 06:59 18:59 Intake Total 880 Output Total 400 Balance 480 - Medications Medications: Current Medications Acetaminophen (Tylenol 325mg Tab) 650 mg PO Q6H PRN PRN Reason: Fever >100.4 F Amlodipine Besylate (Norvasc) 2.5 mg PO DAILY [facility] Last Admin: 11/27/17 09:04 Dose: 2.5 mg Aspirin (Aspirin Chewable) 81 mg PO DAILY [facility] Last Admin: 11/27/17 09:04 Dose: 81 mg Diphenhydramine HCl (Benadryl) 25 mg IVP Q6 PRN PRN Reason: Rash Daptomycin 750 mg/ Sodium (Chloride) 100 mls @ 200 mls/hr IV Q24H [facility] Stop: 12/23/17 11:16 Last Admin: 11/26/17 11:11 Dose: 200 mls/hr Insulin Detemir (Levemir) 42 unit SC HS [facility] Last Admin: 11/26/17 21:26 Dose: Not Given Insulin Human Lispro (Humalog Low) 0 units SC ACHS [facility] PRN Reason: Protocol Last Admin: 11/27/17 08:40 Dose: Not Given Insulin Human Lispro (Humalog) 10 units SC AC [facility] Last Admin: 11/27/17 08:41 Dose: 10 units Levalbuterol HCl (Xopenex) 0.63 mg IH [id number] [facility] Last Admin: 11/27/17 07:46 Dose: 0.63 mg Levalbuterol HCl (Xopenex) 1.25 mg IH [id number] PRN PRN Reason: Shortness of Breath Metoprolol Tartrate (Lopressor) 25 mg PO BID [facility] Last Admin: 11/27/17 09:04 Dose: 25 mg Pantoprazole Sodium (Protonix Ec Tab) 40 mg PO 0600 [facility] Last Admin: 11/27/17 05:51 Dose: 40 mg Tramadol HCl (Ultram) 50 mg PO Q8H PRN PRN Reason: Pain, moderate (4-7) Last Admin: 11/27/17 09:03 Dose: 50 mg Vancomycin HCl (Vancocin 25 Mg/Ml (Oral Use)) 125 mg PO QID [facility] PRN Reason: Protocol Last Admin: 11/27/17 09:03 Dose: 125 mg - Labs Labs: 11/27/17 05:30 11/27/17 05:30 PT 11.9 SECONDS (9.4-12.5) 11/23/17 17:04 INR 1.04 (0.93-1.08) 11/23/17 17:04 APTT 19.6 Seconds (25.1-36.5) L 11/23/17 17:04 - Constitutional Appears: Non-toxic, Chronically Ill - Head Exam Head Exam: NORMAL INSPECTION - ENT Exam ENT Exam: Mucous Membranes Moist - Neck Exam Neck Exam: absent: Meningismus - Respiratory Exam Respiratory Exam: Decreased Breath Sounds - Cardiovascular Exam Cardiovascular Exam: +S1, +S2 - GI/Abdominal Exam GI & Abdominal Exam: Soft. 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
[2017-11-27 17:33] VITALS: BP 144/73; PULSE 74
[2017-11-27 17:43] VITALS: RESP 18; TEMP 97.6; O2SAT 98
--- NOTE | 2017-11-27 20:37 | PN ---
DATE: 11/27/2017 CARDIOLOGY FOLLOWUP SUBJECTIVE: The patient is comfortable in bed. OBJECTIVE: VITAL SIGNS: Blood pressure is 157/84, heart rate in the 70s. Patient is afebrile. NECK: Negative JVD. LUNGS: Without rales. HEART: Reveals S1, S2. EXTREMITIES: Without edema. LABORATORY DATA: White count is 15.2. BUN and creatinine are unremarkable. IMPRESSION: 1. Sepsis. 2. Endocarditis. 3. Lower extremity infection. 4. Recent [id number] myocardial infarction. 5. Renal insufficiency, which is better. PLAN: Given these findings, the patient remains hemodynamically stable, on aspirin, beta-blockers. We will repeat an echocardiogram in approximately a week to evaluate his vegetation. Riccardo Whitehead MD
--- NOTE | 2017-11-27 23:10 | PN ---
DATE: LOCATION: Room 364. SUBJECTIVE: This is a 72-year-old male with recent uncontrolled type 2 insulin requiring diabetes, now being followed closely for metabolic management. His glycemic levels are fluctuating, but much improved at this time and the latest glucose values have ranged from 162-196 mg/dL. It was 136 at bedtime last night. LABORATORY DATA: The latest chemistries showed a BUN of 20, sodium 137, potassium 4.5, chloride 101, CO2 of 30, glucose 167, and creatinine 1.3. ASSESSMENT AND PLAN: So, at this time, we will continue the same basal and bolus insulin regimen that is given with Humalog, given as 10 units subcutaneous t.i.d. before meals as ordered. We will continue the Levemir given as basal insulin at 42 units subcutaneous at bedtime daily. We will titrate the medicines dictated to optimize metabolic well-being. We will follow and advise accordingly. Carolyn Murdock MD
== END 2017-11-27 20:34 | DRG 871 ==
LOC: ED 15:21 → ERH 18:04 → 5RSO 20:15 → ICU 11-19 01:20 → 3RNO 11-23 14:48
PROVIDERS: ADMIT Family Medicine; ATTEND Family Medicine
PROC: 0H9MXZZ Drainage of Right Foot Skin, External Approach (ICD-10-PCS; principal; 2017-11-19 12:30)
PROC: 0HBMXZZ Excision of Right Foot Skin, External Approach (ICD-10-PCS; 2017-11-26)
DX: A41.01 Sepsis due to Methicillin susceptible Staphylococcus aureus (principal); G92 Toxic encephalopathy; N17.0 Acute kidney failure with tubular necrosis; R65.21 Severe sepsis with septic shock; I48.91 Unspecified atrial fibrillation; M86.10 Other acute osteomyelitis, unspecified site; E11.319 Type 2 diabetes mellitus with unspecified diabetic retinopathy without macular edema; E86.0 Dehydration; E87.1 Hypo-osmolality and hyponatremia; L03.115 Cellulitis of right lower limb; E11.52 Type 2 diabetes mellitus with diabetic peripheral angiopathy with gangrene; I42.9 Cardiomyopathy, unspecified; L02.419 Cutaneous abscess of limb, unspecified; L02.611 Cutaneous abscess of right foot; N39.0 Urinary tract infection, site not specified; E11.42 Type 2 diabetes mellitus with diabetic polyneuropathy; E11.621 Type 2 diabetes mellitus with foot ulcer; D64.9 Anemia, unspecified; E11.622 Type 2 diabetes mellitus with other skin ulcer; E11.628 Type 2 diabetes mellitus with other skin complications; E11.649 Type 2 diabetes mellitus with hypoglycemia without coma; E11.65 Type 2 diabetes mellitus with hyperglycemia; E11.69 Type 2 diabetes mellitus with other specified complication; E66.9 Obesity, unspecified; E78.5 Hyperlipidemia, unspecified; F17.290 Nicotine dependence, other tobacco product, uncomplicated; I05.9 Rheumatic mitral valve disease, unspecified; I11.9 Hypertensive heart disease without heart failure; I25.10 Atherosclerotic heart disease of native coronary artery without angina pectoris; I25.2 Old myocardial infarction; I77.6 Arteritis, unspecified; J10.1 Influenza due to other identified influenza virus with other respiratory manifestations; J98.01 Acute bronchospasm; L40.9 Psoriasis, unspecified; L97.519 Non-pressure chronic ulcer of other part of right foot with unspecified severity; R09.02 Hypoxemia; Z79.4 Long term (current) use of insulin; Z79.82 Long term (current) use of aspirin; Z89.421 Acquired absence of other right toe(s); Z82.49 Family history of ischemic heart disease and other diseases of the circulatory system; Z91.018 Allergy to other foods; R40.2412 Glasgow coma scale score 13-15, at arrival to emergency department

== ENCOUNTER 2017-11-30 20:21 | Inpatient (IN) | payer MEDICARE ==
[2017-11-30 20:25] VITALS: BMI 34.5
--- NOTE | 2017-11-30 21:00 | ED PDOC ---
Arrival/HPI - General Historian: Patient - History of Present Illness Time/Duration: < week Symptom Onset: Gradual Symptom Course: Unchanged Activities at Onset: Rest <Alexandro Ortez - Last Filed: 11/30/17 21:01> <Josh Kennedy - Last Filed: 11/30/17 21:27> - General Chief Complaint: Abnormal Skin Integrity Time Seen by Provider: 11/30/17 20:33 - History of Present Illness Narrative History of Present Illness (Text): 11/30/17 20:58 Patient is a 72M with a PMH of diabetes and hypertension comes to the Emergency department after being seen in rehab for a right foot infection. The patient was previously here for an influenza infection and toe infection. Was seen by Dr. Baron who later debrided the wound. Patient also found to have mitral valve vegetations. Patient was treated with dapto and zyvox as inpt. He was discharged on PO zyvox and ansef for 4-6 weeks thru [facility]. Today the patient was seen by ID in rehab and after inspecting the foot, they told him to come to the Emergency department. He has no other complaints at this time. (Alexandro Ortez) Past Medical History - Infectious Disease Hx of Infectious Diseases: None - Cardiac Hx Cardiac Disorders: No - Pulmonary Hx Respiratory Disorders: Yes Other/Comment: 5 broken ribs and scar tissue to R lung - Neurological Hx Neurological Disorder: No - HEENT Hx HEENT Disorder: Yes Other/Comment: glasses - Renal Hx Renal Disorder: No - Endocrine/Metabolic Hx Endocrine Disorders: Yes Hx Diabetes Mellitus Type 2: Yes - Hematological/Oncological Hx Blood Disorders: No - Integumentary Hx Dermatological Disorder: Yes Hx Psoriasis: Yes - Musculoskeletal/Rheumatological Hx Musculoskeletal Disorders: No - Gastrointestinal Hx Gastrointestinal Disorders: No - Genitourinary/Gynecological Hx Genitourinary Disorders: No - Psychiatric Hx Psychophysiologic Disorder: No Hx Substance Use: No - Surgical History Hx Mastectomy: No - Anesthesia Hx Anesthesia Reactions: No Hx Malignant Hyperthermia: No - Suicidal Assessment Feels Threatened In Home Enviroment: No <Alexandro Ortez - Last Filed: 11/30/17 21:01> - Provider Review Nursing Documentation Reviewed: Yes <Josh Kennedy - Last Filed: 11/30/17 21:27> Family/Social History Family/Social History: Unknown Family HX Smoking Status: Former Smoker Hx Alcohol Use: Yes Hx Substance Use: No <Alexandro Ortez - Last Filed: 11/30/17 21:01> - Physician Review Nursing Documentation Reviewed: Yes <Josh Kennedy - Last Filed: 11/30/17 21:27> Allergies/Home Meds <Alexandro Ortez - Last Filed: 11/30/17 21:01> <Josh Kennedy - Last Filed: 11/30/17 21:27> Allergies/Adverse Reactions: Allergies kiwi Allergy (Verified 11/30/17 20:26) RASH strawberry Adverse Reaction (Verified 11/30/17 20:26) RASH rasberries Adverse Reaction (Intermediate, Uncoded 11/30/17 20:26) RASH Home Medications: Home Meds Medication Instructions Recorded Confirmed Novolog 2 units SUBCUT ACD 07/08/15 11/30/17 Zocor 20 mg PO DAILY 07/08/15 11/30/17 Canagliflozin [Invokana] 100 mg PO DAILY 11/18/17 11/30/17 Insulin Aspart, Recombinant 2 unit SC DAILY 11/18/17 11/30/17 [Novolog] Insulin Glargine, Recombina 40 units SQ ACB 11/18/17 11/30/17 [Lantus] Liraglutide [Victoza 2-Santi] 1.8 units SC DAILY 11/18/17 11/30/17 Metformin HCl [Glucophage] 1,000 mg PO BID 11/18/17 11/30/17 Multivitamin [Multivitamins] 1 sgl PO DAILY 11/18/17 11/30/17 Prinzide 1012.5 1 tab PO DAILY 11/18/17 11/30/17 Review of Systems - Review of Systems Constitutional: Normal Eyes: Normal ENT: Normal Respiratory: Normal Cardiovascular: Normal Gastrointestinal: Normal Genitourinary Male: Normal Musculoskeletal: Normal Skin: Abscess (R. foot) Neurological: Normal Endocrine: Normal Hemo/Lymphatic: Normal Psychiatric: Normal <Alexandro Ortez - Last Filed: 11/30/17 21:01> - Physician Review All systems were reviewed & negative as marked: Yes <Josh Kennedy - Last Filed: 11/30/17 21:27> Physical Exam Temperature: Afebrile Blood Pressure: Hypertensive Pulse: Bradycardic Respiratory Rate: Normal Appearance: Positive for: Well-Appearing, Non-Toxic, Comfortable Pain Distress: None Mental Status: Positive for: Alert and Oriented X 3 - Systems Exam Head: Present: Atraumatic, Normocephalic Pupils: Present: PERRL Extroacular Muscles: Present: EOMI Conjunctiva: Present: Normal Mouth: Present: Moist Mucous Membranes Neck: Present: Normal Range of Motion Respiratory/Chest: Present: Clear to Auscultation, Good Air Exchange. No: Respiratory Distress, Accessory Muscle Use Cardiovascular: Present: Regular Rate and Rhythm, Normal S1, S2. No: Murmurs Abdomen: Present: Normal Bowel Sounds. No: Tenderness, Distention, Peritoneal Signs Upper Extremity: Present: Normal Inspection, Edema. No: Cyanosis Lower Extremity: Present: Deformity (patient has a wound at the distal forefoot at the 2nd toe open on both the dorsal and plantar aspect of the foot. Packing is present on the dorsal aspect of the wound. Great toe s/p amputation. slightly warm/erythemetous. ) Neurological: Present: GCS=15, CN II-XII Intact, Speech Normal Skin: Present: Warm, Dry, Normal Color. No: Rashes Psychiatric: Present: Alert, Oriented x 3 <Alexandro Ortez - Last Filed: 11/30/17 21:01> Vital Signs Reviewed: Yes <Josh Kennedy - Last Filed: 11/30/17 21:27> Vital Signs Temp Pulse Resp BP Pulse Ox 11/30/17 20:27 98.1 F 58 L 20 154/81 H 95 Medical Decision Making <Alexandro Ortez - Last Filed: 11/30/17 21:01> - Lab Interpretations I have reviewed the lab results: Yes <Josh Kennedy - Last Filed: 11/30/17 21:27> ED Course and Treatment: 11/30/17 21:09 patient sent from rehab after being seen by Emergency department who thought he needed inpt care at this time for R. foot infection Spoke with Dr. Mendez who agrees with admission, consulted ID and Podiatry CBC, CMP, Blood culture and wound culture Will start patient on Dapto as he was on this while inpatient last time. ( Alexandro Ortez) Patient Seen With Resident: In agreement with resident note which contains more details about the patient. Patient was seen and evaluated with resident. Came up with plan and treatment together. 72 year old male, presents complaining of right foot infection after being seen in rehab. Plan: -- Labs -- Dapto -- Blood Culture -- Wound Culture -- Reassess and disposition (Josh Kennedy) - Medication Orders Current Medication Orders: Daptomycin 730 mg/ Sodium (Chloride) 100 mls @ 200 mls/hr IV Q24H [facility] PRN Reason: Protocol Stop: 11/30/17 21:29 - PA / TRANSIT MIX OPERATOR / Resident Statement JUVE has reviewed & agrees with the documentation as recorded. JUVE has examined the patient and agrees with the treatment plan. <Alexandro Ortez - Last Filed: 11/30/17 21:01> - PA / TRANSIT MIX OPERATOR / Resident Statement JUVE has reviewed & agrees with the documentation as recorded. JUVE has examined the patient and agrees with the treatment plan. - Scribe Statement The provider has reviewed the documentation as recorded by the Scribe <Josh Kennedy - Last Filed: 11/30/17 21:27> - Scribe Statement Nader Aguilar Provider Scribe Attestation: All medical record entries made by the Scribe were at my direction and personally dictated by me. I have reviewed the chart and agree that the record accurately reflects my personal performance of the history, physical exam, medical decision making, and the department course for this patient. I have also personally directed, reviewed, and agree with the discharge instructions and disposition. (Josh Kennedy) Disposition/Present on Arrival - Present on Arrival Any Indicators Present on Arrival: No History of DVT/PE: No History of Uncontrolled Diabetes: No Urinary Catheter: No History of Decub. Ulcer: No History Surgical Site Infection Following: None - Disposition Have Diagnosis and Disposition been Completed?: Yes Disposition Time: 21:11 Patient Plan: Admission <Alexandro Ortez - Last Filed: 11/30/17 21:01> <Josh Kennedy - Last Filed: 11/30/17 21:27> - Disposition Diagnosis: Diabetic infection of right foot Disposition: HOSPITALIZED Patient Problems: Current Active Problems Problem Status Onset Diabetic infection of right foot Acute Condition: GUARDED Referrals: Reagan Mendez DO [Primary Care Provider] - Follow up with primary Forms: [facility] (Latvian)
[2017-11-30 22:11] LABS: BASO # 0.01 K/mm3 (0.0-2.0); BASO % 0.1 % (0.0-3.0); EOS # 0.2 (0.0-0.7); EOS % 1.6 % (1.5-5.0); GRAN # 9.91 (1.4-6.5); GRAN % 77.9 % (50.0-68.0); HEMOGLOBIN 11.5 g/dL (14.0-18.0); LYMPH # 1.9 (1.2-3.4); LYMPH % 15.1 % (22.0-35.0); MEAN CELL VOLUME 88.5 fl (80.0-105.0); MEAN CORPUSCULAR HEMOGLOBIN 29.3 pg (25.0-35.0); MEAN CORPUSCULAR HGB CONC 33.1 g/dl (31.0-37.0); MEAN PLATELET VOLUME 9.6 fl (7.0-11.0); MONO # 0.7 (0.1-0.6); MONO % 5.3 % (1.0-6.0); RBC 3.92 10^6/uL (3.5-6.1); RED CELL DISTRIBUTION WIDTH 14.4 % (11.5-14.5); WHITE BLOOD COUNT 12.7 10^3/ul (4.5-11.0)
[2017-11-30 22:14] LABS: ALB/GLOB RATIO 0.6 (1.1-1.8); ALBUMIN 2.8 g/dL (3.0-4.8); CALCIUM 9.3 mg/dL (8.4-10.5)
[2017-12-01] MEDS ORDERED: Sodium Chloride 0.45% 1,000 ML IV SCH (08:15)
[2017-12-01] MEDS ORDERED: Levalbuterol 1.25 MG/3 ML Inhal Soln UD IH PRN (10:16)
[2017-12-01] MEDS: Enoxaparin 40 mg Syringe SC SCH (12:20)
[2017-12-01] MEDS: Insulin Reg-HIGH-Coverage SC SCH ×3 (12:20→21:55)
[2017-12-01] MEDS ORDERED: ceFAZolin 2 GM in Sodium Chloride 0.9% 100 ML IVPB SCH (14:00)
[2017-12-01] MEDS: Levalbuterol 0.63 MG/3 ML Inhal Soln UD IH SCH ×2 (14:04→19:28)
[2017-12-01] MEDS ORDERED: DAPTOmycin 500 mg Inj (Cubicin) IV SCH (14:45)
[2017-12-01] MEDS ORDERED: Pneumococcal 23-Valent Vaccine IM ONE (14:52)
[2017-12-01] MEDS: Sodium Chloride 0.45% 1,000 ML IV SCH (16:12)
[2017-12-01] MEDS ORDERED: Insulin Lispro 1 UNITS/0.01 ML SC SCH (16:30)
[2017-12-01] MEDS ORDERED: NS IVPB SCH (18:00)
[2017-12-01] MEDS ORDERED: LINEZOLID IVPB SCH (18:00)
--- NOTE | 2017-12-01 19:58 | CON ---
DATE: HISTORY OF PRESENT ILLNESS: A 72-year-old male well known to the [facility] Wound Care team, seen at bedside for continued evaluation and management of his severe right diabetic foot infection that required two incision and drainages by Dr. Baron. The patient was discharged earlier this week on p.o. Zyvox and IV Ancef for a 4 to 6-week course. However, at his rehab, the doctors noticed what they felt as purulent drainage and he was sent back to the hospital for further evaluation. PAST MEDICAL HISTORY: Significant for type 2 diabetes with peripheral neuropathy, psoriasis, essential hypertension, and morbid obesity. ALLERGIES: INCLUDE RASPBERRY, STRAWBERRIES, AND KIWI. HOME MEDICATIONS: Include NovoLog, Zocor, Invokana, Prinzide, Victoza, and Lantus. PAST SURGICAL HISTORY: Includes pedal amputations. PHYSICAL EXAMINATION: VITAL SIGNS: Revealed temperature of 98.5, pulse rate of 60, blood pressure of 155/76, respiratory rate of 20. EXTREMITIES: Weakly palpable pedal pulses noted bilaterally. The patient is unable to detect 5.07 g monofilament wire testing bilaterally. There is absent pedal hair growth noted bilaterally. Lower extremity skin presents thin, shining, discolored bilaterally. Right foot presents with two incision sites, one dorsal and one plantar at the second metatarsal joint region. Plantar incision site measures approximately 8 cm and the dorsal incision site measures approximately 2 cm. There is noted to be serous drainage emanating from the wound. There is no purulence. There is no malodor. The base of the ulcers on the dorsal and plantar aspects of the foot remain primarily granular with minimal fibrotic tissue. When gently squeezed from proximal to distal, there was no purulence emanating from the wound. Entire forefoot, however, remains slightly edematous and erythematous and the second toe remains edematous and erythematous. There are no signs of ascending cellulitis. LABORATORY DATA: Revealed a white count of 12.7, hemoglobin of 11.5, hematocrit of 34.7, platelet count of 202. There is no recent microbiology report noted. ASSESSMENT: Status post incision and drainage of the right foot secondary to severe abscess formation. PLAN: The patient's wound was inspected. The area was flushed with copious amounts of normal sterile saline using a bulb syringe. A culture was taken and submitted for sensitivities. The wound was dressed with Iodoform packing from dorsal to plantar, sterile Adaptic, sterile Maxorb, sterile 4x4, abdominal pad, and Kerlix. We will order foot x-ray to rule out any osseous changes since his surgery. Would recommend Infectious Disease consult to evaluate most recent culture and sensitivity. Would continue with the IV Ancef and p.o. Zyvox until Infectious Disease culture is performed. The patient will be seen and followed daily while in-house. Walker Chowdhury DPM
--- NOTE | 2017-12-01 20:37 | HP ---
HISTORY OF PRESENT ILLNESS: I know him very well from being in the hospital for a week or so for severe right foot infection. He was sent to rehab for IV antibiotics and he is back because he did not like the way the foot was looking. He will have a consult with Podiatry and Infectious Disease and we put him back on his antibiotics. He is a 72-year-old man who I know very well with a possibly worsening right foot infection who has a past medical history of right foot nonhealing diabetic ulcers who is diabetic, hypertensive, he had influenza. He has also mitral valve endocarditis. He is on antibiotics for that too for four to six weeks. He was on daptomycin and Zyvox. He was discharged on Ancef and Zyvox and was sent back here by the Infectious Disease doctor at the facility. He has a history of broken five ribs with a scar tissue in the right lung. He wears glasses. He has diabetes. He has psoriasis. He has hypertension. He has had endocarditis of the mitral valve. He is a former smoker. He still drinks alcohol. No substance abuse. HE HAS ALLERGIES TO KIWI, STRAWBERRY, AND SADE. He takes Novolog, Zocor, Invokana, Lantus, Victoza, Glucophage, multivitamins, Prinzide plus the antibiotics. REVIEW OF SYSTEMS: No acute vision changes or hearing changes. No sore throat. No neck pain or chest pain. No shortness of breath or palpitations or coughing. No problems urinating. He has a right foot abscess and ulcer, which is bandaged. He has no neurological issues. No numbness or tingling. No anxiety or depression. He understands the situation. PHYSICAL EXAMINATION VITAL SIGNS: He has 98.1 temperature, 58 pulse, 20 respiratory rate, 154/81 blood pressure, 95% O2 saturation. GENERAL: He is well appearing, nontoxic, comfortable, not in any pain. HEENT: His head is atraumatic, normocephalic. Extraocular muscles are intact. Pupils equal, react to light and accommodation. Throat is moist. NECK: Supple. HEART: Regular rate. Normal S1, S2. LUNGS: Clear to auscultation bilaterally with decreased breath sounds. ABDOMEN: Soft, nontender. Positive bowel sounds. Morbidly obese. EXTREMITIES: He has got no edema. The right foot is bandaged. There are ulcers on the foot. He had a great toe amputation. NEUROLOGIC: GCS is 15. Cranial nerves II through XII grossly intact. Speech is normal. Alert and oriented x3. Thyroid midline. A palpable appreciable lymphadenopathy in a bunch of tests done. SKIN: Warm and dry. No rashes or ulcers except for the right foot. LABORATORY DATA: He has a 139 sodium, potassium 4, BUN is 27, creatinine 1.7. IV fluids. Last blood sugar was 139, calcium 9.3, magnesium 2.1, total bilirubin is 0.7, AST is 23, ALT is 29, alkaline phosphatase 167, total protein 7.4. White count is 12.7, hemoglobin 11.5, hematocrit 34.7, platelets 202,000. He will have a consult with Infectious Disease and Podiatry; put back on IV antibiotics, insulin coverage, IV fluids and hopefully, he will do very well. I will check his labs tomorrow and if everything is okay, I will get him back to the subacute rehab on Sunday. 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 Reagan Mendez DO cc: MTDD
[2017-12-01] MEDS: Insulin Detemir 100 units/ml Vial (Levemir) SC SCH (21:56)
[2017-12-01] MEDS ORDERED: Insulin Detemir 100 units/ml Vial (Levemir) SC SCH (22:00)
[2017-12-01] MEDS ORDERED: Linezolid 600 mg in D5W 300 ml 600 MG/300 ML BAG IVPB SCH (22:00)
--- NOTE | 2017-12-01 22:35 | CON ---
DATE: 12/01/2017 LOCATION: Patient seen earlier today in 578, bed #2. CHIEF COMPLAINT: Weakness times several days. HISTORY OF PRESENT ILLNESS: This is a 72-year-old male who was recently in the hospital who was discharged and now re-admitted. Patient with a history of diabetes mellitus, hypertension, dyslipidemia, psoriasis, rib fracture by history, who has had foot surgery, right toe amputation in the past, who is recently discharged from [facility]. Patient was diagnosed with severe sepsis, with acute kidney injury, with sensitive Staph aureus bacteremia, mitral valve endocarditis, with a right foot cellulitis with MRSA, presents with kidney disease. Patient was treated with daptomycin. Patient developed a question of a rash in the long-term facility and has returned for evaluation, last was seen here [address] Hernández on the . A 2-D echo showed a mitral valve vegetation. Patient says he has petechial rash, was not pruritic, no fevers, no chills, no nausea, no vomiting. PAST MEDICAL HISTORY: Significant for diabetes mellitus, hypertension, dyslipidemia, psoriasis, rib fractures. PAST SURGICAL HISTORY: Significant for right toe amputation in the past. ALLERGIES: PATIENT IS ALLERGIC TO KIWI, STRAWBERRY, RASPBERRIES. MEDICATIONS: Reviewed. PHYSICAL EXAMINATION: GENERAL: Patient is in bed. VITAL SIGNS: Temperature of 98, blood pressure is 140/80, respiratory rate of 20, heart rate of 62. HEENT: Unremarkable. NECK: Supple. LUNGS: Decreased breath sounds. HEART: Normal S1 and S2. ABDOMEN: Soft, nontender. No rebound, no guarding. No masses. LABORATORY DATA: Reveals the patient to have white count of 12,700, hemoglobin of 11, platelets of 203. BUN of 27, creatinine of 1.7. Microbiology from previous admissions noted that patient had positive C. diff on the , negative antigen, negative toxin. Repeat blood cultures, which were negative were from the . He had persistent blood cultures that were positive. In the past, patient also had bone cultures that were positive for Serratia in 03/2017. Blood cultures initially from 11/18/2017 were positive for Staph aureus. The repeat ones from 11/20/2017 was positive; however, cultures from the were negative, no growth. Examination of the skin reveals petechial rash throughout his body. Platelets are reported to be normal. 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 We will resume daptomycin. We will check on the CPK. Patient's creatinine is 1.7 with a GFR of 40. We will order a CPK. We will make further recommendations. We will discontinue the Ancef. Patient has not had any sensoria. LFTs were normal. There is a mild elevation of alk phos. Platelets are normal. The rash is not entirely explained. It may be complications of the endocarditis being an embolic disease. We will follow with you. We will request the urinalysis and the urine culture. At this time, the only information from this admission is available in the Emergency Room documentation, written by Dr. Mc . Repeat blood cultures are pending. Jesús Hu MD
[2017-12-02] MEDS: Levalbuterol 0.63 MG/3 ML Inhal Soln UD IH SCH ×4 (01:52→19:47)
[2017-12-02 04:02] LABS: URINE BILIRUBIN NEGATIVE (NEGATIVE); URINE BLOOD LARGE (NEGATIVE); URINE GLUCOSE (UA) >=1000 mg/dL (NEGATIVE); URINE LEUKOCYTE ESTERASE NEGATIVE Leu/uL (NEGATIVE); URINE PROTEIN 100 mg/dL (<30 mg/dL); URINE UROBILINOGEN 0.2 E.U./dL (<1 E.U./dL)
[2017-12-02 04:24] LABS: URINE APPEARANCE SL CLOUDY (CLEAR); URINE COLOR YELLOW (YELLOW)
[2017-12-02 04:27] LABS: URINE RBC TNTC /hpf (0-2); URINE WBC 0 - 2 /hpf (0-6)
[2017-12-02 04:28] LABS: URINE BACTERIA FEW (NEG); URINE EPITHELIAL CELLS 0 - 2 /hpf (0-5)
[2017-12-02] MEDS: Pantoprazole 40 mg EC Tab PO SCH (05:57)
[2017-12-02 07:51] LABS: HEMOGLOBIN 10.7 g/dL (14.0-18.0); MEAN CELL VOLUME 87.8 fl (80.0-105.0); MEAN CORPUSCULAR HEMOGLOBIN 29.1 pg (25.0-35.0); MEAN CORPUSCULAR HGB CONC 33.1 g/dl (31.0-37.0); MEAN PLATELET VOLUME 9.1 fl (7.0-11.0); RBC 3.68 10^6/uL (3.5-6.1); RED CELL DISTRIBUTION WIDTH 14.2 % (11.5-14.5); WHITE BLOOD COUNT 12.4 10^3/ul (4.5-11.0)
[2017-12-02 08:07] LABS: ALB/GLOB RATIO 0.6 (1.1-1.8); ALBUMIN 2.5 g/dL (3.0-4.8); CALCIUM 8.6 mg/dL (8.4-10.5)
[2017-12-02] MEDS: Insulin Reg-HIGH-Coverage SC SCH ×4 (08:21→21:32)
[2017-12-02] MEDS ORDERED: CANAGLIFLOZIN 100 MG PO SCH (10:00)
[2017-12-02] MEDS ORDERED: PRINZIDE PO SCH (10:00)
--- NOTE | 2017-12-02 10:20 | RAD ---
PROCEDURE: Right Foot Radiographs. HISTORY: diabetic right foot ulcer COMPARISON: Right foot radiographs 11/18/2017. FINDINGS: BONES: Prior right great toe amputation again evident. Erosive changes seen related to the base of proximal phalanx 2nd digit as well as the proximal segment of the proximal phalanx 3rd digit with associated fractures. Osteomyelitis remains clinically questioned and is not excluded based on these radiographs. No additional erosive changes throughout the remainder of the right foot as imaged. Prominent forefoot soft edema is appreciated with questionable superficial emphysema compatible with cellulitis. Follow-up MRI recommended for greater characterization. JOINTS: Degenerative joint changes seen throughout the forefoot joints diffusely and mild at the midfoot joints. SOFT TISSUES: As above. OTHER FINDINGS: None. IMPRESSION: Findings suspicious for osteomyelitis at the 2nd and 3rd digits with fractures noted also at the proximal phalanges of the 2nd and 3rd digits. No significant interval change.
[2017-12-02] MEDS: Multivitamin Therapeutic Tab PO SCH (11:22)
[2017-12-02] MEDS: Enoxaparin 40 mg Syringe SC SCH (11:25)
--- NOTE | 2017-12-02 13:23 | CP.PCM.PN ---
Subjective - Date & Time of Evaluation Date of Evaluation: 12/02/17 Time of Evaluation: 13:17 - Subjective Subjective: Podiatry Progress note: Dr. Baron/ Dr. Chowdhury 72 y/o male seen and examined at bedside this morning 6 days s/p debridement of right foot diabetic ulceration with sinus tract. Patient is AAOx3 and in NAD. Pt denies any acute events overnight and slept well. Denies of having any pain to the right foot. Denies F/C/N/V/CP/SOB. Objective - Vital Signs/Intake and Output Vital Signs (last 24 hours): Temp Pulse Resp BP Pulse Ox 97.4 F L 66 16 163/78 H 93 L 12/02/17 06:00 12/02/17 11:23 12/02/17 06:00 12/02/17 11:23 12/02/17 06:00 - Medications Medications: Current Medications Acetaminophen (Tylenol 325mg Tab) 650 mg PO Q6H PRN PRN Reason: Fever >100.4 F Amlodipine Besylate (Norvasc) 2.5 mg PO DAILY [facility] Last Admin: 12/02/17 11:23 Dose: 2.5 mg Aspirin (Aspirin Chewable) 81 mg PO DAILY [facility] Last Admin: 12/02/17 11:25 Dose: 81 mg Atorvastatin Calcium (Lipitor) 10 mg PO DIN [facility] Last Admin: 12/01/17 17:20 Dose: 10 mg Enoxaparin Sodium (Lovenox) 40 mg SC DAILY [facility] PRN Reason: Protocol Last Admin: 12/02/17 11:25 Dose: 40 mg Hydrochlorothiazide (Microzide) 12.5 mg PO DAILY [facility] Last Admin: 12/02/17 11:23 Dose: 12.5 mg Sodium Chloride (Sodium Chloride 0.45%) 1,000 mls @ 30 mls/hr IV .Q24H [facility] Last Admin: 12/01/17 16:12 Dose: 30 mls/hr Daptomycin 690 mg/ Sodium (Chloride) 100 mls @ 200 mls/hr IV Q24H [facility] Stop: 12/29/17 15:01 Last Admin: 12/01/17 16:12 Dose: 200 mls/hr Insulin Detemir (Levemir) 42 unit SC [facility] Last Admin: 12/01/17 21:56 Dose: Not Given Insulin Human Regular (Humulin R High) 0 units SC ACHS [facility] PRN Reason: Protocol Last Admin: 12/02/17 11:25 Dose: 12 units Levalbuterol HCl (Xopenex) 0.63 mg IH [id number] [facility] Last Admin: 12/02/17 07:31 Dose: 0.63 mg Levalbuterol HCl (Xopenex) 1.25 mg IH [id number] PRN PRN Reason: Shortness of Breath Lisinopril (Zestril) 20 mg PO DAILY [facility] Metoprolol Tartrate (Lopressor) 25 mg PO BID [facility] Last Admin: 12/02/17 11:23 Dose: 25 mg Multivitamins (Thera Tab) 1 tab PO DAILY [facility] Last Admin: 12/02/17 11:22 Dose: 1 tab Canagliflozin [ Invokana] 100 Mg ( Home Med) 100 mg PO DAILY [facility] Last Admin: 12/02/17 11:26 Dose: Not Given Pantoprazole Sodium (Protonix Ec Tab) 40 mg PO 0600 [facility] Last Admin: 12/02/17 05:57 Dose: 40 mg Tramadol HCl (Ultram) 50 mg PO Q8H PRN PRN Reason: Pain, moderate (4-7) Last Admin: 12/01/17 21:50 Dose: 50 mg - Constitutional Appears: Well, Non-toxic, No Acute Distress - Extremities Exam Additional comments: R LE focused exam: Vasc: DP and PT non-palpable, temperature gradient is warm to cool from proximal to distal, Cap refill time: < 3 seconds to all digits, moderate non- pitting edema noted to the right forefoot Derm: Two surgical incisions: #1 longitudinal surgical incision noted to the plantar aspect of the sub metatarsal 2 measuring approximately 4 x .3 cm and #2 surgical incision measuring approximately 2 cm x .3 cm on the dorsum of the foot at the level of the 2nd metatarsal head. Incisions connect forming a tunnel through the forefoot. Periwound maceration noted, Wound base is 100% grannular with no active drainage, no purulence, no active bleeding, no malodor, no tunneling but tracking present to the plantar surgical incision from the dorsal incision, no clinical suspicion of active infection at this time. Neuro: gross and protective sensation diminished Ortho: no pain with palpation to ulceration site, right healed partial ray amputation - Neurological Exam Neurological Exam: Alert, Awake, Oriented x3 - Psychiatric Exam Psychiatric exam: Normal Affect, Normal Mood Assessment and Plan - Assessment and Plan (Free Text) Assessment: 72 y/o male 6 days s/p debridement of right foot diabetic ulceration with sinus tract. Plan: Patient seen and evaluated at bedside Discussed with attending Dr. Baron Labs and vitals reviewed- afebrile, WBC 12.4 Continue abx as per ID - Daptomycin Post-surgical site does not appear infected at this time Surgical site cleaned with saline and packed using 1/4 inch iodoform packing and dressed using maxorb, DSD X-rays of the foot reviewed: possible OM of the 2nd and 3rd digit with comminuted fracture pattern to the 2nd and 3rd proximal phalanx Surgical site wound cultures taken: pending Podiatry to continue to follow patient while in house
--- NOTE | 2017-12-02 14:53 | PN ---
DATE: SUBJECTIVE: I was hoping to discharge him back to [facility] today to continue with IV antibiotics for his right foot infection. He has endocarditis of the mitral valve, but I had no social insurance analyst or counter caser to help me. He is resting comfortably in bed. I will make him an inpatient because he has been PHYSICAL EXAMINATION VITAL SIGNS: He has 97.4 temperature, 66 pulse, 163/78 blood pressure, 16 respiratory rate, 93% O2 sat on room air. HEENT: His head is atraumatic, normocephalic. HEART: Regular rate. LUNGS: Clear to auscultation. ABDOMEN: Soft, obese, nontender. EXTREMITIES: The right foot bandaged from a nonhealing diabetic ulcer. MEDICATIONS: He is on aspirin, Invokana, daptomycin IV, insulin, Levemir, Lipitor, Lopressor, Lovenox, Microzide, Norvasc, pantoprazole, IV fluids, Thera-Tabs, Tylenol, Ultram, Xopenex, Zestril. I am going to increase the Zestril for his blood pressure. LABORATORY DATA: He has sodium 138, potassium 4, BUN is 27, creatinine 1.9, GFR is 35, sugar is 155, calcium is 8.6, total bilirubin is 0.7, AST is 33, ALT is 27, alkaline phosphatase 125. He has a 12.4 white count, 10.7 hemoglobin, 32.3 hematocrit, with a 203 platelets. IMPRESSION AND PLAN: He is being seen by Infectious Disease, Podiatry. We will check his labs tomorrow. I am hoping to get him discharged back to [facility] tomorrow to finish the IV antibiotics. I will increase his blood pressure pills from 10 to 20 mg. Get him out of bed to chair. Reagan Mendez DO [facility]
[2017-12-02] MEDS: Sodium Chloride 0.45% 1,000 ML IV SCH (18:25)
[2017-12-02] MEDS: Insulin Detemir 100 units/ml Vial (Levemir) SC SCH (21:32)
[2017-12-03] MEDS: Levalbuterol 0.63 MG/3 ML Inhal Soln UD IH SCH ×4 (01:21→20:37)
--- NOTE | 2017-12-03 01:55 | PN ---
DATE: SUBJECTIVE: Patient is in bed, in no acute distress, nontoxic. PHYSICAL EXAMINATION VITAL SIGNS: Temperature is 99, blood pressure is 170/90, respiratory rate is 18. HEENT: Unremarkable. NECK: Supple. LUNGS: Have decreased breath sounds. HEART: Normal S1 and S2. ABDOMEN: Soft, nontender. LABORATORY EXAMINATION: Reveals white count of 12,400, hemoglobin is 10. Chemistries are noted. BUN of 27, creatinine of 1.9. Urinalysis is noted. Microbiology is reviewed. Review of orders reveals the patient daptomycin. ASSESSMENT AND PLAN: This is a 72-year-old male recently discharged from the hospital, readmitted. 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 We will follow with you. Jesús Hu MD
[2017-12-03] MEDS: Pantoprazole 40 mg EC Tab PO SCH (05:41)
[2017-12-03] MEDS: Sodium Chloride 0.45% 1,000 ML IV SCH (05:48)
[2017-12-03 07:23] LABS: HEMOGLOBIN 11.1 g/dL (14.0-18.0); MEAN CELL VOLUME 87.4 fl (80.0-105.0); MEAN CORPUSCULAR HEMOGLOBIN 29.8 pg (25.0-35.0); MEAN PLATELET VOLUME 9.3 fl (7.0-11.0); RBC 3.73 10^6/uL (3.5-6.1); RED CELL DISTRIBUTION WIDTH 14.4 % (11.5-14.5); WHITE BLOOD COUNT 14.8 10^3/ul (4.5-11.0)
[2017-12-03 07:26] LABS: ALB/GLOB RATIO 0.6 (1.1-1.8); ALBUMIN 2.6 g/dL (3.0-4.8); CALCIUM 8.9 mg/dL (8.4-10.5)
[2017-12-03] MEDS: Insulin Reg-HIGH-Coverage SC SCH ×4 (08:00→22:37)
[2017-12-03] MEDS ORDERED: Sodium Chloride 0.45% 1,000 ML IV SCH (08:16)
--- NOTE | 2017-12-03 10:15 | PN ---
DATE: SUBJECTIVE: I saw him resting comfortably this morning. The right foot is bandaged. He is on IV antibiotics. The daughter is telling me that he is going to go for procedure today with Podiatry. I did discuss with Podiatry. As far as yesterday, they were not going to, but now his white count bumped up to 14,000.8 from 12. He has a severe sepsis issue, acute kidney injury, mitral valve endocarditis and a right foot methicillin-resistant Staphylococcus aureus osteomyelitis, on daptomycin. PHYSICAL EXAMINATION: VITAL SIGNS: He has a 99.8 temp; 93 pulse; 173/95 blood pressure, the one before that was 127/53 blood pressure. I will adjust his blood pressure medications. 18 respiratory rate, 91% O2 sat on room. HEENT: His head is atraumatic, normocephalic. HEART: Regular rate. LUNGS: Decreased breath sounds, but clear. ABDOMEN: Soft, morbidly obese. EXTREMITIES: Have no edema, but the right foot is bandaged. LABORATORY DATA: He has a 14.8 white count, it went up from 12.4 yesterday; 11.1 hemoglobin; 32.6 hematocrit with 215 platelets. He has a 137 sodium, potassium is 4, BUN 30, creatinine 2 that is going up too. I called in Renal. GFR is down to 33, sugar is 167, total bili is 0.9, AST is 32, ALT is 49, alk phos is 137. ASSESSMENT AND PLAN: I feel he has a few things going on now. He also has renal insufficiency on top of his right foot infection, osteomyelitis, diabetes, mitral valve endocarditis. Hopefully to get him back to subacute rehab for continued IV antibiotics, but now Podiatry thinks they might have to go into the foot and open up again. I will call in Renal for the elevating BUN creatinine. I will raise his IV fluids to 60 mL an hour. Reagan Mendez DO
[2017-12-03] MEDS: Multivitamin Therapeutic Tab PO SCH (10:58)
[2017-12-03] MEDS: Enoxaparin 40 mg Syringe SC SCH (10:58)
[2017-12-03] MEDS: Sodium Chloride 0.9% 1,000 ML IV SCH (11:43)
--- NOTE | 2017-12-03 15:17 | MRI ---
PROCEDURE: MRI of the right foot without contrast HISTORY: severe right diabetic foot infection with ulcer COMPARISON: TECHNIQUE: MRI of the right foot was performed in multiple planes using multiple pulse sequences. FINDINGS: There is a large amount of marrow edema in the 2nd metatarsal and the 2nd proximal phalanx. There is also dislocation at the MTP joint. There is a large amount of soft tissue swelling and edema. Similar findings are seen of the 3rd proximal phalanx and 3rd metatarsal. Findings are consistent with osteomyelitis. IMPRESSION: Osteomyelitis of the 2nd and 3rd metatarsals and proximal phalanges. See comment
--- NOTE | 2017-12-03 15:43 | PN ---
DATE: SUBJECTIVE: A 72-year-old diabetic male seen at bedside for continued evaluation and management of a diabetic right foot abscess that required incision and drainage. The patient is resting comfortably. He offers no new complaints. However, his white blood cell count has been rising over the last 48 hours. We will order stool C. diff testing and order a new MRI to rule out a persistent abscess pocket in his right foot. PHYSICAL EXAMINATION: VITAL SIGNS: The patient's temperature is 99.8, pulse rate of 93, blood pressure of 173/95, respiratory rate of 18. EXTREMITIES: Weakly palpable pedal pulses noted bilaterally. The patient is unable to detect 5.07 g monofilament wire testing bilaterally. Absent pedal hair growth. The right foot presents with two incision sites, one plantar and one dorsal at the second metatarsophalangeal joint region. Plantar incision is larger than the dorsal incision. There is noted to be no purulence emanating from either of the incisions. There is noted to be serous drainage only. There is no malodor. The entire forefoot presents with decreasing edema and erythema. Once again, his foot was gently squeezed from proximal to distal and there was no purulence emanating from either of the incision sites. Using sterile suture removal packet, the wound was gently probed and there was found to be no purulence noted, only healthy blood emanating from the wound. There is no signs of an ascending cellulitis. LABORATORY DATA: Laboratory findings reveal a white count of 14.8 up from 12.4 yesterday, hemoglobin of 11.1, hematocrit of , platelet count of 215. Wound cultures reveal no growth after 24 hours. X-rays reveal suspicious findings for osteomyelitis of the second and third digits on the right foot; however, the patient has refused any amputations at this point. ASSESSMENT: Severe abscess formation to the right foot that required two incision and drainage procedures. PLAN: The patient's wound was inspected. The area was probed with sterile suture removal kit and it was found to be no pockets of purulence. The area was flushed with copious amounts of normal sterile saline using a bulb syringe. A small amount of packing was used to pack the wound from plantar to dorsal. The plantar to dorsal using sterile iodoform packing 1 inch. The foot was then dressed with sterile Adaptic, sterile 4x4, Maxorb, sterile abdominal pad and Kerlix. We will order a C. diff testing. I will order an MRI without contrast today to ascertain whether there is any persistent pocket of purulence within the compartments of his right foot. We will continue with antibiotics as per Infectious Disease. The patient will be seen and followed daily while in-house. Walker Chowdhury DPM
--- NOTE | 2017-12-03 16:19 | CP.PCM.CON ---
History of Present Illness - History of Present Illness History of Present Illness: Nephrology Consultation Note: Assessment: stable Acute Kidney Injury (N17.9) likely due to sepsis, wound infection. if continue to get worse, will evaluate for AIN, post inf GN DM, HTN (I12.0) active cigar smoker, obesity toe osteomyelitis with sepsis, Mitral valve infective endocarditis Plan No acute need for renal replacement therapy at this time. maintain hemodynamics stable.hold ACEI/ARB due to ROHINI. hold diuretics. increase norvasc hold Invokanna Monitor Input/Output, daily weights and renal function with basic metabolic panel continue with IVF as NS @ 100 ml/hr outpt eval for microscopic hematuria Dose meds/antibiotics for reduced GFR. Avoid fleets enema/magnesium based laxatives. Avoid nephrotoxins/NSAIDs/ iodinated contrast (unless needed emergently) Glycemic control pt encouraged to stop smoking Further work up/management as per primary team Thanks for allowing me to participate in care of your patient. Will follow patient with you. Please call if any Qs. d/w team Dr Caden Muller Office: [phone] Chief Complaint: foot infection HPI: Pt is a 72 M with hx of diabetes Mellitus (9 years), hypertension (years) , active cigar smoker, obesity and Rt foot infection, recent ROHINI (peaked cr 2.1 ) presented with complaints of Rt foot wound infection. renal consult for ROHINI eval. his cr 1.1 in 2017 and at d/c last hospitalization Denies OTC/herbal meds or NSAIDs No recent iodinated contrast exposure.no episodes of low BP. ROS: Cardiovascular: No chest pain. Pulmonary: No shortness of breath Gastrointestinal: denies abdominal pain No nausea. No vomiting. Genitourinary: No pain while urinating. Denies blood in urine. All other negative except as mentioned in HPI Physical Examination: General Appearance: Comfortable, in no acute respiratory distress, co-operative . obese Vitals reviewed and noted as below Head; Atraumatic, normocephalic ENT: no ulcers no thrush. Tongue is midline. Oropharynx: no rash or ulcers. EYES: Pupils are equal, round and reactive to light accommodation. Eye muscles and extraocular movement intact. Sclera is anicteric. Neck; supple no lymphadenopathy, no thyromegaly or bruit Lungs: Normal respiratory rate/effort. Breath sounds bilateral equal and clear Heart: Normal rate. s1s2 normal. No rub or gallop. Extremities: Rt pedal edema. No varicose veins. Rt foot dressed. pedal pulses diminished Neurological: Patient is alert, awake and oriented to person, place and time. No focal deficit. Strength bilateral appropriate and equal Skin: Warm and dry. Normal turgor. No rash. Palpitation: Normal elasticity for age Abdomen: Abdomen is soft. Bowel sounds +. There is no abdominal tenderness, no guarding/rigidity no organomegaly Psych: normal insight and normal affect/mood MSK: no joint tenderness or swelling. Digits and nails normal, no deformity : kidney or bladder not palpable Labs/imaging reviewed. Past medical history, past surgical history, family history, social history, allergy reviewed and noted as below Family hx: no hx of CKD. Rest non-contributory workup: renal SONO: WNL UA large blood Past Patient History - Infectious Disease Hx of Infectious Diseases: None - Past Social History Smoking Status: Never Smoked - CARDIAC Hx Cardiac Disorders: No - PULMONARY Hx Respiratory Disorders: Yes Other/Comment: 5 broken ribs and scar tissue to R lung - NEUROLOGICAL Hx Neurological Disorder: No - HEENT Hx HEENT Problems: Yes Other/Comment: glasses - RENAL Hx Chronic Kidney Disease: No - ENDOCRINE/METABOLIC Hx Endocrine Disorders: Yes Hx Diabetes Mellitus Type 2: Yes - HEMATOLOGICAL/ONCOLOGICAL Hx Blood Disorders: No - INTEGUMENTARY Hx Dermatological Problems: Yes Hx Psoriasis: Yes - MUSCULOSKELETAL/RHEUMATOLOGICAL Hx Musculoskeletal Disorders: No Hx Falls: No - GASTROINTESTINAL Hx Gastrointestinal Disorders: No - GENITOURINARY/GYNECOLOGICAL Hx Genitourinary Disorders: No - PSYCHIATRIC Hx Psychophysiologic Disorder: No Hx Substance Use: No - SURGICAL HISTORY Hx Mastectomy: No - ANESTHESIA Hx Anesthesia Reactions: No Hx Malignant Hyperthermia: No Meds Allergies/Adverse Reactions: Allergies Allergy/AdvReac Type Severity Reaction Status Date / Time kiwi Allergy RASH Verified 11/30/17 20:26 strawberry AdvReac RASH Verified 11/30/17 20:26 rasberries AdvReac Intermediate RASH Uncoded 11/30/17 20:26 - Medications Medications: Current Medications Acetaminophen (Tylenol 325mg Tab) 650 mg PO Q6H PRN PRN Reason: Fever >100.4 F Amlodipine Besylate (Norvasc) 10 mg PO DAILY [facility] Last Admin: 12/03/17 10:59 Dose: 10 mg Aspirin (Aspirin Chewable) 81 mg PO DAILY [facility] Last Admin: 12/03/17 10:58 Dose: 81 mg Atorvastatin Calcium (Lipitor) 10 mg PO DIN [facility] Last Admin: 12/02/17 18:25 Dose: 10 mg Enoxaparin Sodium (Lovenox) 40 mg SC DAILY [facility] PRN Reason: Protocol Last Admin: 12/03/17 10:58 Dose: 40 mg Hydralazine HCl (Apresoline) 25 mg PO Q4 PRN PRN Reason: Other Daptomycin 690 mg/ Sodium (Chloride) 100 mls @ 200 mls/hr IV Q24H [facility] Stop: 12/29/17 15:01 Last Admin: 12/03/17 15:59 Dose: 200 mls/hr Sodium Chloride (Sodium Chloride 0.9%) 1,000 mls @ 100 mls/hr IV .Q10H [facility] Last Admin: 12/03/17 11:43 Dose: 100 mls/hr Insulin Detemir (Levemir) 42 unit SC HS [facility] Last Admin: 12/02/17 21:32 Dose: Not Given Insulin Human Regular (Humulin R High) 0 units SC ACHS [facility] PRN Reason: Protocol Last Admin: 12/03/17 12:31 Dose: 1 units Levalbuterol HCl (Xopenex) 0.63 mg IH [id number] [facility] Last Admin: 12/03/17 14:00 Dose: 0.63 mg Levalbuterol HCl (Xopenex) 1.25 mg IH [id number] PRN PRN Reason: Shortness of Breath Metoprolol Tartrate (Lopressor) 25 mg PO BID [facility] Last Admin: 12/03/17 10:59 Dose: 25 mg Multivitamins (Thera Tab) 1 tab PO DAILY [facility] Last Admin: 12/03/17 10:58 Dose: 1 tab Pantoprazole Sodium (Protonix Ec Tab) 40 mg PO 0600 [facility] Last Admin: 12/03/17 05:41 Dose: 40 mg Tramadol HCl (Ultram) 50 mg PO Q8H PRN PRN Reason: Pain, moderate (4-7) Last Admin: 12/03/17 11:02 Dose: 50 mg Results - Vital Signs Recent Vital Signs: Last Vital Signs Temp 99.8 F H 12/02/17 21:35 Pulse 84 12/03/17 10:59 Resp 18 12/02/17 21:35 BP 154/80 H 12/03/17 10:59 Pulse Ox 91 L 12/02/17 21:35 - Labs Result Diagrams: 12/03/17 06:30 12/03/17 06:30 Labs: Laboratory Results - last 24 hr 12/02/17 12/03/17 12/03/17 21:00 06:30 06:30 WBC 14.8 H RBC 3.73 Hgb 11.1 L Hct 32.6 L MCV 87.4 MCH 29.8 MCHC 34.0 RDW 14.4 Plt Count 215 MPV 9.3 Sodium 137 Potassium 4.0 Chloride 100 Carbon Dioxide 30 Anion Gap 11 BUN 30 H Creatinine 2.0 H Est GFR ( Amer) 40 Est GFR (Non-Af Amer) 33 POC Glucose (mg/dL) 164 H Random Glucose 167 H Calcium 8.9 Total Bilirubin 0.9 AST 32 ALT 29 Alkaline Phosphatase 137 H Total Protein 7.0 Albumin 2.6 L Globulin 4.4 Albumin/Globulin Ratio 0.6 L 12/03/17 12/03/17 12/03/17 06:30 11:32 15:55 WBC RBC Hgb Hct MCV MCH MCHC RDW Plt Count MPV Sodium Potassium Chloride Carbon Dioxide Anion Gap BUN Creatinine Est GFR ( Amer) Est GFR (Non-Af Amer) POC Glucose (mg/dL) 148 H 230 H 253 H Random Glucose Calcium Total Bilirubin AST ALT Alkaline Phosphatase Total Protein Albumin Globulin Albumin/Globulin Ratio
--- NOTE | 2017-12-03 20:00 | CP.PCM.PN ---
Subjective - Date & Time of Evaluation Date of Evaluation: 12/03/17 Time of Evaluation: 12:25 - Subjective Subjective: Comfortable, still with some pain on the right foot, no fevers. Objective - Vital Signs/Intake and Output Vital Signs (last 24 hours): Temp Pulse Resp BP Pulse Ox 99.8 F H 93 H 18 173/95 H 91 L 12/02/17 21:35 12/02/17 21:35 12/02/17 21:35 12/02/17 21:35 12/02/17 21:35 Intake and Output: 12/03/17 12/03/17 06:59 18:59 Intake Total 1320 Output Total 400 Balance 920 - Medications Medications: Current Medications Acetaminophen (Tylenol 325mg Tab) 650 mg PO Q6H PRN PRN Reason: Fever >100.4 F Amlodipine Besylate (Norvasc) 10 mg PO DAILY [facility] Aspirin (Aspirin Chewable) 81 mg PO DAILY [facility] Last Admin: 12/02/17 11:25 Dose: 81 mg Atorvastatin Calcium (Lipitor) 10 mg PO DIN [facility] Last Admin: 12/02/17 18:25 Dose: 10 mg Enoxaparin Sodium (Lovenox) 40 mg SC DAILY [facility] PRN Reason: Protocol Last Admin: 12/02/17 11:25 Dose: 40 mg Hydralazine HCl (Apresoline) 25 mg PO Q4 PRN PRN Reason: Other Daptomycin 690 mg/ Sodium (Chloride) 100 mls @ 200 mls/hr IV Q24H [facility] Stop: 12/29/17 15:01 Last Admin: 12/02/17 16:22 Dose: 200 mls/hr Sodium Chloride (Sodium Chloride 0.9%) 1,000 mls @ 100 mls/hr IV .Q10H [facility] Insulin Detemir (Levemir) 42 unit SC HS [facility] Last Admin: 12/02/17 21:32 Dose: Not Given Insulin Human Regular (Humulin R High) 0 units SC ACHS [facility] PRN Reason: Protocol Last Admin: 12/02/17 21:32 Dose: Not Given Levalbuterol HCl (Xopenex) 0.63 mg IH [id number] [facility] Last Admin: 12/03/17 07:17 Dose: 0.63 mg Levalbuterol HCl (Xopenex) 1.25 mg IH [id number] PRN PRN Reason: Shortness of Breath Metoprolol Tartrate (Lopressor) 25 mg PO BID [facility] Last Admin: 12/02/17 18:25 Dose: 25 mg Multivitamins (Thera Tab) 1 tab PO DAILY [facility] Last Admin: 12/02/17 11:22 Dose: 1 tab Pantoprazole Sodium (Protonix Ec Tab) 40 mg PO 0600 [facility] Last Admin: 12/03/17 05:41 Dose: 40 mg Tramadol HCl (Ultram) 50 mg PO Q8H PRN PRN Reason: Pain, moderate (4-7) Last Admin: 12/01/17 21:50 Dose: 50 mg - Labs Labs: 12/03/17 06:30 12/03/17 06:30 - Constitutional Appears: Non-toxic, Chronically Ill - Head Exam Head Exam: NORMAL INSPECTION - Neck Exam Neck Exam: absent: Meningismus - Respiratory Exam Respiratory Exam: Decreased Breath Sounds - Cardiovascular Exam Cardiovascular Exam: +S1, +S2 - GI/Abdominal Exam GI & Abdominal Exam: Soft. absent: Tenderness Assessment and Plan - Assessment and Plan (Free Text) Plan: Assessment methicillin-sensitive Staph aureus bacteremia, with mitral valve endocarditis and right foot severe skin and skin structure infection (with MRSA), S/P I and D history of right hallux infected ulcer (with gangrene), grew Serratia S/P 1st ray amputation DM HTN dyslipidemia psoriasis history of wounds in the foot history of rib fractures due to trauma Plan continue Daptomycin - patient will need at least 4-6 weeks of antibiotics from first negative blood cx with weekly ESR, CRP, CBC, CMP, CPK levels will continue to monitor clinically
[2017-12-03] MEDS: Insulin Detemir 100 units/ml Vial (Levemir) SC SCH (22:36)
[2017-12-04] MEDS: Sodium Chloride 0.9% 1,000 ML IV SCH (02:23)
[2017-12-04] MEDS: Levalbuterol 0.63 MG/3 ML Inhal Soln UD IH SCH ×4 (02:56→20:30)
[2017-12-04] MEDS: Pantoprazole 40 mg EC Tab PO SCH (06:16)
[2017-12-04 07:24] LABS: HEMOGLOBIN 10.8 g/dL (14.0-18.0); MEAN CELL VOLUME 88.3 fl (80.0-105.0); MEAN CORPUSCULAR HEMOGLOBIN 28.8 pg (25.0-35.0); MEAN CORPUSCULAR HGB CONC 32.6 g/dl (31.0-37.0); RBC 3.75 10^6/uL (3.5-6.1); RED CELL DISTRIBUTION WIDTH 14.6 % (11.5-14.5)
[2017-12-04 07:42] LABS: ALB/GLOB RATIO 0.6 (1.1-1.8); ALBUMIN 2.5 g/dL (3.0-4.8); CALCIUM 8.6 mg/dL (8.4-10.5)
[2017-12-04] MEDS: Insulin Reg-HIGH-Coverage SC SCH ×4 (07:59→22:01)
[2017-12-04] MEDS: Multivitamin Therapeutic Tab PO SCH (09:19)
[2017-12-04] MEDS: Enoxaparin 40 mg Syringe SC SCH (09:19)
[2017-12-04] MEDS ORDERED: Enoxaparin 30 mg Syringe SC SCH (10:38)
[2017-12-04 12:24] LABS: ARTERIAL BLOOD GAS HCO3 25.1 mmol/L (21-28); ARTERIAL BLOOD GAS HEMOGLOBIN 11.6 g/dL (11.7-17.4); ARTERIAL BLOOD GAS O2 CONTENT 15.7 ML/dl (15-23); ARTERIAL BLOOD GAS PCO2 51 mm/Hg (35-45); ARTERIAL BLOOD GAS TCO2 26.7 mmol.L (22-28)
--- NOTE | 2017-12-04 12:33 | CP.PCM.PN ---
<VinnyYojana - Last Filed: 12/04/17 12:34> Subjective - Date & Time of Evaluation Date of Evaluation: 12/04/17 Time of Evaluation: 12:30 - Subjective Subjective: Podiatry Progress note: Dr. Baron/ Dr. Chowdhruy 72 y/o male seen and examined at bedside this morning with attending Dr. Chowdhury , 8 days s/p debridement of right foot diabetic ulceration with sinus tract. Patient appears SOB at time of visit and is unable to remain still at bed, turning on his sides to improve his breathing. He is able to respond to verbal commands but appears to demonstrate AMS during visit. PLASTER HELPER called by nursing. Objective - Vital Signs/Intake and Output Vital Signs (last 24 hours): Temp Pulse Resp BP Pulse Ox 97.8 F 85 20 164/81 H 91 L 12/04/17 07:30 12/04/17 09:22 12/04/17 07:30 12/04/17 09:22 12/04/17 07:30 Intake and Output: 12/04/17 12/04/17 06:59 18:59 Intake Total 120 Output Total 200 Balance -80 - Medications Medications: Current Medications Acetaminophen (Tylenol 325mg Tab) 650 mg PO Q6H PRN PRN Reason: Fever >100.4 F Amlodipine Besylate (Norvasc) 10 mg PO DAILY [facility] Last Admin: 12/04/17 09:19 Dose: 10 mg Aspirin (Aspirin Chewable) 81 mg PO DAILY [facility] Last Admin: 12/04/17 09:19 Dose: 81 mg Atorvastatin Calcium (Lipitor) 10 mg PO DIN [facility] Last Admin: 12/03/17 17:42 Dose: 10 mg Enoxaparin Sodium (Lovenox) 30 mg SC DAILY [facility] PRN Reason: Protocol Hydralazine HCl (Apresoline) 25 mg PO Q4 PRN PRN Reason: Other Daptomycin 690 mg/ Sodium (Chloride) 100 mls @ 200 mls/hr IV Q24H [facility] Stop: 12/29/17 15:01 Last Admin: 12/03/17 15:59 Dose: 200 mls/hr Sodium Chloride (Sodium Chloride 0.9%) 1,000 mls @ 100 mls/hr IV .Q10H [facility] Last Admin: 12/04/17 02:23 Dose: 100 mls/hr Insulin Detemir (Levemir) 42 unit SC HS [facility] Last Admin: 12/03/17 22:36 Dose: 42 unit Insulin Human Regular (Humulin R High) 0 units SC ACHS [facility] PRN Reason: Protocol Last Admin: 12/04/17 07:59 Dose: Not Given Levalbuterol HCl (Xopenex) 0.63 mg IH [id number] [facility] Last Admin: 12/04/17 07:18 Dose: 0.63 mg Levalbuterol HCl (Xopenex) 1.25 mg IH [id number] PRN PRN Reason: Shortness of Breath Metoprolol Tartrate (Lopressor) 50 mg PO BID [facility] Multivitamins (Thera Tab) 1 tab PO DAILY [facility] Last Admin: 12/04/17 09:19 Dose: 1 tab Pantoprazole Sodium (Protonix Ec Tab) 40 mg PO 0600 [facility] Last Admin: 12/04/17 06:16 Dose: 40 mg Tramadol HCl (Ultram) 50 mg PO Q8H PRN PRN Reason: Pain, moderate (4-7) Last Admin: 12/03/17 11:02 Dose: 50 mg - Labs Labs: 12/04/17 07:00 12/04/17 07:00 - Constitutional Appears: In Acute Distress, Confused - Extremities Exam Additional comments: RLE focused exam: Vasc: DP and PT non-palpable, temperature gradient is warm to cool from proximal to distal, Cap refill time: < 3 seconds to all digits, moderate non- pitting edema noted to the right forefoot Derm: Two surgical incisions: #1 longitudinal surgical incision noted to the plantar aspect of the sub metatarsal 2 measuring approximately 4 x .3 cm and #2 surgical incision measuring approximately 2 cm x .3 cm on the dorsum of the foot at the level of the 2nd metatarsal head. Incisions connect forming a tunnel through the forefoot. Wound base is 100% granular with no active drainage, no fluctuance noted, no purulence, no active bleeding, no malodor, no tunneling but tracking present to the plantar surgical incision from the dorsal incision, no clinical suspicion of active infection at this time. Neuro: gross and protective sensation diminished Ortho: no pain with palpation to ulceration site, right healed partial ray amputation - Neurological Exam Neurological Exam: Alert, Awake - Psychiatric Exam Psychiatric exam: Anxious Assessment and Plan - Assessment and Plan (Free Text) Assessment: 72 y/o male 8 days s/p debridement of right foot diabetic ulceration with sinus tract. Plan: Patient seen and evaluated at bedside with attending Dr. Chowdhury Labs and vitals reviewed- afebrile, WBC 17.0 MRI of foot reviewed: possible OM of the 2nd and 3rd metatarsals and proximal phalanges Continue abx as per ID - Daptomycin Post-surgical site does not appear infected at this time Surgical site cleaned with saline Wound dressed with DSD; wound not packed due to pt demonstrating SOB, AMS at time of visit --> PLASTER HELPER called by nursing Will wait until patient is stabilized to pack sinus tract Podiatry to continue to follow patient while in house <Walker Chowdhury - Last Filed: 12/05/17 11:26> Objective - Vital Signs/Intake and Output Vital Signs (last 24 hours): Temp Pulse Resp BP Pulse Ox 98.4 F 97 H 28 H 102/45 L 94 L 12/05/17 04:00 12/05/17 11:00 12/05/17 11:00 12/05/17 10:00 12/05/17 11:00 Intake and Output: 12/05/17 12/05/17 06:59 18:59 Intake Total 360 Output Total 550 Balance -190 - Medications Medications: Current Medications Acetaminophen (Tylenol 325mg Tab) 650 mg PO Q6H PRN PRN Reason: Fever >100.4 F Albumin Human (Albumin Human 25% (12.5 Gm/50 Ml)) 12.5 gm IV Q4H [facility] Last Admin: 12/05/17 09:40 Dose: 12.5 gm Albuterol/Ipratropium (Duoneb 3 Mg/0.5 Mg (3 Ml) Ud) 3 ml IH [id number] [facility] Aspirin (Aspirin Chewable) 81 mg PO DAILY [facility] Last Admin: 12/05/17 09:19 Dose: 81 mg Atorvastatin Calcium (Lipitor) 10 mg PO DIN [facility] Last Admin: 12/04/17 17:43 Dose: 10 mg Heparin Sodium (Porcine) (Heparin) 5,000 units SC Q8 [facility] PRN Reason: Protocol Last Admin: 12/05/17 05:30 Dose: 5,000 units Hydralazine HCl (Apresoline) 25 mg PO Q4 PRN PRN Reason: Other Hydralazine HCl (Apresoline) 10 mg IVP Q6 PRN PRN Reason: SBP >150 and/or DBP >90 Last Admin: 12/04/17 21:55 Dose: 10 mg Meropenem 500 mg/ Sodium (Chloride) 50 mls @ 100 mls/hr IVPB Q12 [facility] PRN Reason: Protocol Stop: 12/13/17 18:52 Last Admin: 12/05/17 09:39 Dose: 100 mls/hr Daptomycin 690 mg/ Sodium (Chloride) 100 mls @ 200 mls/hr IV QOTHERDAY [facility] Stop: 12/29/17 15:01 Insulin Detemir (Levemir) 42 unit SC HS [facility] Last Admin: 12/04/17 22:06 Dose: 42 unit Insulin Human Regular (Humulin R High) 0 units SC ACHS [facility] PRN Reason: Protocol Last Admin: 12/05/17 07:44 Dose: Not Given Levalbuterol HCl (Xopenex) 0.63 mg IH [id number] [id number] Last Admin: 12/05/17 08:01 Dose: 0.63 mg Levalbuterol HCl (Xopenex) 1.25 mg IH [id number] PRN PRN Reason: Shortness of Breath Metoprolol Tartrate (Lopressor) 5 mg IVP Q6H [facility] Last Admin: 12/05/17 09:27 Dose: 5 mg Multivitamins (Thera Tab) 1 tab PO DAILY [facility] Last Admin: 12/05/17 09:22 Dose: 1 tab Pantoprazole Sodium (Protonix Ec Tab) 40 mg PO 0600 [facility] Last Admin: 12/05/17 05:30 Dose: 40 mg Tramadol HCl (Ultram) 50 mg PO Q8H PRN PRN Reason: Pain, moderate (4-7) Last Admin: 12/03/17 11:02 Dose: 50 mg - Labs Labs: 12/05/17 06:10 12/05/17 06:10 Attending/Attestation - Attestation I have personally seen and examined this patient.: Yes I have fully participated in the care of the patient.: Yes I have reviewed all pertinent clinical information, including history, physical exam and plan: Yes
--- NOTE | 2017-12-04 12:36 | RAD ---
HISTORY: SOB COMPARISON: 11/24/2017 FINDINGS: LUNGS: No active pulmonary disease. PLEURA: No significant pleural effusion identified, no pneumothorax apparent. CARDIOVASCULAR: There is a moderate amount of vascular congestion with perihilar infiltrates OSSEOUS STRUCTURES: No significant abnormalities. VISUALIZED UPPER ABDOMEN: Normal. OTHER FINDINGS: None. IMPRESSION: Moderate vascular congestion and perihilar infiltrates consistent with CHF
[2017-12-04 12:50] LABS: ALB/GLOB RATIO 0.6 (1.1-1.8); ALBUMIN 2.8 g/dL (3.0-4.8)
--- NOTE | 2017-12-04 12:53 | PCM.RRT ---
<JuanaAlcira avilez - Last Filed: 12/04/17 14:10> HEEL COVERER Nurse Assessment - Situation Date: 12/04/17 Time HEEL COVERER was called: 12:04 HEEL COVERER Responder Arrival Time: 12:04 HEEL COVERER Location:: [address] [place] [address] Room Number: 578-2 HEEL COVERER Reason for Call: Respiratory Distress, O2 Saturation below 90% HEEL COVERER Called By: Physician - IV IV Inserted during HEEL COVERER?: No - Respiratory Oxygen Delivery Method: Non Rebreather @% Oxygen Flow Rate: 100 Received Nebulizer Treatments:: Yes Was the Patient Ventilated with Bag/Mask 100% O2?: Yes Secretions Suctioned?: No Was the Patient Intubated?: No Was the Patient Placed on a Ventilator?: No - Medication Medications Administered During HEEL COVERER: Lasix 40mg IVP STAT - Diagnostic Test Ordered EKG: Yes Chest X-Ray: Yes CT Scan: No - Stat Labs Ordered HEEL COVERER Stat Labs Ordered: CBC, BMP, TROPONIN, ABG CPR started during HEEL COVERER?: No - Vital Signs Vital Sign: Rapid Response Vital Sign Blood Pressure 153/82 Pulse Rate 89 Respiratory Rate 32 Temperature 99.0 F Oxygen Saturation 84 - Finger Stick Blood Glucose Finger Stick Blood Glucose: 189 - [place] Coma Scale Coma Scale Eye Opening: Spontaneous Coma Scale Motor: Obeys Commands Movement Coma Scale Verbal: Oriented - Sepsis Screen Part 2 Sepsis Screen Part 2: WBC over 12,000 - Time HEEL COVERER Ended Time HEEL COVERER Ended: 12:25 - Vital Signs at end of HEEL COVERER Vital Signs at end of HEEL COVERER: Rapid Response End Vital Sign Blood Pressure 126/63 Pulse Rate 86 Respiratory Rate 30 Temperature 99.0 F O2 Sat by Pulse Oximetry 97 - Recommendations Notifications: Attending Physician, Consultations I.Reason for HEEL COVERER - A) Acute Change in Patient: (Select all that apply): Staff member or family is worried about patient Subjective: Patient was being evaluated by Dr. Chowdhury and Dr. Muller. They noted that the patient was in respiratory distress and breathing rapidly. He was not confused at time of examination. Rapid response was called. RR team responded immediately. - Neurological Status (Select all that apply): Alert, Responsive, Verbal, Follows Commands - Respiratory Oxygen Delivery Method: Non Rebreather @% Oxygen Flow Rate: 100 - Constitutional Appears: No Acute Distress - Head Head Exam: ATRAUMATIC, NORMAL INSPECTION, NORMOCEPHALIC - Eyes Eye Exam: PERRL - Respiratory Exam Respiratory Exam: Rales, NORMAL BREATHING PATTERN. absent: Rhonchi, Wheezes - Cardiovascular Exam Cardiovascular Exam: REGULAR RHYTHM, +S1, +S2. absent: Gallop, Rubs, Murmur - GI/Abdominal Exam GI & Abdominal Exam: Soft, Normal Bowel Sounds. absent: Tenderness, Mass, Rebound - Neurological Exam Neurological Exam: Alert, Awake, CN II-XII Intact - Extremities Exam Additional comments: Dressing on L foot Plan - Assessment of Findings&Treatment Plan This is a 72yo male with past medical history of DM, mitral valve endocarditis ( EF 73% on echo) who was admitted for ROHINI and sepsis secondary to osteomyelitis of L 2nd/3rd toes. Patient found to be short of breath with SpO2 of 87% on Non- rebreather. EKG was ordered which showed NSR. CXR showed pulm vascular congestion. ABG showed respiratory acidosis on 100% non-rebreather. Labs were ordered and reviewed. Troponin 0.44 which has been similar troponin on last admission last week. Patient was given Lasix 40IVP and placed on Bipap. His respiratory status improved. ICU was consulted for respiratory distress and accepted the patient for further monitoring. Dr. Mendez and Dr. Dejesus were notified. Dr. Dejesus requested Dr. Whitehead to also be consulted as well. Will continue to monitor troponin and give one more dose of lasix tonight. Case seen, discussed and reviewed with attending. Edwar Patterson PGY2 <Isaac Lomeli A - Last Filed: 12/04/17 14:42> HEEL COVERER Nurse Assessment - Vital Signs Vital Sign: Rapid Response Vital Sign Blood Pressure 153/82 Pulse Rate 89 Respiratory Rate 32 Temperature 99.0 F Oxygen Saturation 84 - Vital Signs at end of HEEL COVERER Vital Signs at end of HEEL COVERER: Rapid Response End Vital Sign Blood Pressure 126/63 Pulse Rate 86 Respiratory Rate 30 Temperature 99.0 F O2 Sat by Pulse Oximetry 97 Attending/Attestation - Attestation I have personally seen and examined this patient.: Yes I have fully participated in the care of the patient.: Yes I have reviewed all pertinent clinical information, including history, physical exam and plan: Yes
[2017-12-04 13:32] LABS: TROPONIN I 0.44 ng/mL
[2017-12-04 13:48] LABS: HEMOGLOBIN 11.9 g/dL (14.0-18.0); MEAN CELL VOLUME 89.2 fl (80.0-105.0); MEAN CORPUSCULAR HEMOGLOBIN 29.2 pg (25.0-35.0); MEAN CORPUSCULAR HGB CONC 32.7 g/dl (31.0-37.0); MEAN PLATELET VOLUME 9.9 fl (7.0-11.0); RBC 4.08 10^6/uL (3.5-6.1); RED CELL DISTRIBUTION WIDTH 14.7 % (11.5-14.5); WHITE BLOOD COUNT 19.6 10^3/ul (4.5-11.0)
--- NOTE | 2017-12-04 13:57 | CP.PCM.CON ---
History of Present Illness - History of Present Illness History of Present Illness: CRITICAL CARE CONSULT NOTE HPI Patient is 72yo male with PMhx DM, HTN, Obesity, MV Infective Endocarditis, Diabetic toe, a/w sepsis 2/2 foot infection, and ROHINI. Pt was receiving IVF for ROHINI, today developed SOB and worsening resp distress and RESPIRATORY CARE PROGRAM DIRECTOR called. Pt was placed on BIPAP and Lasix 40mg IV x 1 given, with improvement in resp status. Currently afebrile, HD stable, comfortable in NAD, doing well on BIPAP. No major complaints PMHx as above PSHx as above Allergies kiwi, strawberrry Meds as per EMR FHx NC ROS as above Review of Systems - Review of Systems Review of Systems: as per HPI Past Patient History - Infectious Disease Hx of Infectious Diseases: None - Past Social History Smoking Status: Never Smoked - CARDIAC Hx Cardiac Disorders: No - PULMONARY Hx Respiratory Disorders: Yes Other/Comment: 5 broken ribs and scar tissue to R lung - NEUROLOGICAL Hx Neurological Disorder: No - HEENT Hx HEENT Problems: Yes Other/Comment: glasses - RENAL Hx Chronic Kidney Disease: No - ENDOCRINE/METABOLIC Hx Endocrine Disorders: Yes Hx Diabetes Mellitus Type 2: Yes - HEMATOLOGICAL/ONCOLOGICAL Hx Blood Disorders: No - INTEGUMENTARY Hx Dermatological Problems: Yes Hx Psoriasis: Yes - MUSCULOSKELETAL/RHEUMATOLOGICAL Hx Musculoskeletal Disorders: No Hx Falls: No - GASTROINTESTINAL Hx Gastrointestinal Disorders: No - GENITOURINARY/GYNECOLOGICAL Hx Genitourinary Disorders: No - PSYCHIATRIC Hx Psychophysiologic Disorder: No Hx Substance Use: No - SURGICAL HISTORY Hx Mastectomy: No - ANESTHESIA Hx Anesthesia Reactions: No Hx Malignant Hyperthermia: No Meds Allergies/Adverse Reactions: Allergies Allergy/AdvReac Type Severity Reaction Status Date / Time kiwi Allergy RASH Verified 11/30/17 20:26 strawberry AdvReac RASH Verified 11/30/17 20:26 rasberries AdvReac Intermediate RASH Uncoded 11/30/17 20:26 - Medications Medications: Current Medications Acetaminophen (Tylenol 325mg Tab) 650 mg PO Q6H PRN PRN Reason: Fever >100.4 F Amlodipine Besylate (Norvasc) 10 mg PO DAILY [facility] Last Admin: 12/04/17 09:19 Dose: 10 mg Aspirin (Aspirin Chewable) 81 mg PO DAILY [facility] Last Admin: 12/04/17 09:19 Dose: 81 mg Atorvastatin Calcium (Lipitor) 10 mg PO DIN [facility] Last Admin: 12/03/17 17:42 Dose: 10 mg Enoxaparin Sodium (Lovenox) 30 mg SC DAILY [facility] PRN Reason: Protocol Hydralazine HCl (Apresoline) 25 mg PO Q4 PRN PRN Reason: Other Daptomycin 690 mg/ Sodium (Chloride) 100 mls @ 200 mls/hr IV Q24H [facility] Stop: 12/29/17 15:01 Last Admin: 12/03/17 15:59 Dose: 200 mls/hr Insulin Detemir (Levemir) [address] [facility] Last Admin: 12/03/17 22:36 Dose: 42 unit Insulin Human Regular (Humulin R High) 0 units SC ACHS [facility] PRN Reason: Protocol Last Admin: 12/04/17 13:25 Dose: 1 units Levalbuterol HCl (Xopenex) 0.63 mg IH [id number] [facility] Last Admin: 12/04/17 07:18 Dose: 0.63 mg Levalbuterol HCl (Xopenex) 1.25 mg IH [id number] PRN PRN Reason: Shortness of Breath Metoprolol Tartrate (Lopressor) 50 mg PO BID [facility] Last Admin: 12/04/17 13:27 Dose: 50 mg Multivitamins (Thera Tab) 1 tab PO DAILY [facility] Last Admin: 12/04/17 09:19 Dose: 1 tab Pantoprazole Sodium (Protonix Ec Tab) 40 mg PO 0600 [facility] Last Admin: 12/04/17 06:16 Dose: 40 mg Tramadol HCl (Ultram) 50 mg PO Q8H PRN PRN Reason: Pain, moderate (4-7) Last Admin: 12/03/17 11:02 Dose: 50 mg Physical Exam - Constitutional Appears: Non-toxic, No Acute Distress - Eye Exam Eye Exam: Normal appearance - ENT Exam ENT Exam: Mucous Membranes Moist - Respiratory Exam Respiratory Exam: Decreased Breath Sounds, Rales, NORMAL BREATHING PATTERN - Cardiovascular Exam Cardiovascular Exam: REGULAR RHYTHM, +S1, +S2 - GI/Abdominal Exam GI & Abdominal Exam: Normal Bowel Sounds, Soft - Extremities Exam Extremities exam: Positive for: pedal edema Additional comments: L foot dressing - Neurological Exam Neurological exam: Alert Results - Vital Signs Recent Vital Signs: Last Vital Signs Temp 97.8 F 12/04/17 07:30 Pulse 85 12/04/17 13:27 Resp 20 12/04/17 07:30 BP 126/63 12/04/17 13:27 Pulse Ox 91 L 12/04/17 07:30 - Labs Result Diagrams: 12/04/17 07:00 12/04/17 12:30 Labs: Laboratory Results - last 24 hr 12/03/17 12/03/17 12/04/17 15:55 21:07 06:38 WBC RBC Hgb Hct MCV MCH MCHC RDW Plt Count MPV pCO2 pO2 HCO3 ABG pH ABG Total CO2 ABG O2 Saturation ABG O2 Content ABG Base Excess ABG Hemoglobin ABG Carboxyhemoglobin POC ABG HHb (Measured) ABG Methemoglobin ABG O2 Capacity Hgb O2 Saturation FiO2 Sodium Potassium Chloride Carbon Dioxide Anion Gap BUN Creatinine Est GFR ( Amer) Est GFR (Non-Af Amer) POC Glucose (mg/dL) 253 H 220 H 127 H Random Glucose Calcium Total Bilirubin AST ALT Alkaline Phosphatase Troponin I Total Protein Albumin Globulin Albumin/Globulin Ratio 12/04/17 12/04/17 12/04/17 07:00 07:00 11:39 WBC 17.0 H RBC 3.75 Hgb 10.8 L Hct 33.1 L MCV 88.3 MCH 28.8 MCHC 32.6 RDW 14.6 H Plt Count 184 MPV 9.0 pCO2 pO2 HCO3 ABG pH ABG Total CO2 ABG O2 Saturation ABG O2 Content ABG Base Excess ABG Hemoglobin ABG Carboxyhemoglobin POC ABG HHb (Measured) ABG Methemoglobin ABG O2 Capacity Hgb O2 Saturation FiO2 Sodium 138 Potassium 4.2 Chloride 103 Carbon Dioxide 30 Anion Gap 9 L BUN 36 H Creatinine 2.8 H Est GFR ( Amer) 27 Est GFR (Non-Af Amer) 22 POC Glucose (mg/dL) 189 H Random Glucose 129 H Calcium 8.6 Total Bilirubin 0.9 AST 34 ALT 28 Alkaline Phosphatase 130 H Troponin I Total Protein 6.7 Albumin 2.5 L Globulin 4.3 Albumin/Globulin Ratio 0.6 L 12/04/17 12/04/17 12/04/17 12:07 12:21 12:30 WBC RBC Hgb Hct MCV MCH MCHC RDW Plt Count MPV pCO2 51 H pO2 96.0 HCO3 25.1 ABG pH 7.30 L ABG Total CO2 26.7 ABG O2 Saturation 98.0 ABG O2 Content 15.7 ABG Base Excess -1.8 ABG Hemoglobin 11.6 L ABG Carboxyhemoglobin 2.0 H POC ABG HHb (Measured) 1.9 ABG Methemoglobin 0.8 ABG O2 Capacity 16.0 Hgb O2 Saturation 95.3 FiO2 100.0 Sodium 137 Potassium 4.3 Chloride 101 Carbon Dioxide 28 Anion Gap 12 BUN 41 H Creatinine 2.7 H Est GFR ( Amer) 28 Est GFR (Non-Af Amer) 23 POC Glucose (mg/dL) 151 H Random Glucose 158 H Calcium 9.0 Total Bilirubin 1.2 AST 45 ALT 32 Alkaline Phosphatase 167 H D Troponin I 0.44 H* D Total Protein 7.4 Albumin 2.8 L Globulin 4.6 Albumin/Globulin Ratio 0.6 L - Imaging and Cardiology Chest x-ray Status: Image reviewed by me, Report reviewed by me Assessment & Plan - Assessment and Plan (Free Text) Assessment: 72yo male a/w ARF, VOlume overload, Foot ulcer Foot Ulcer DM VOlume Overload ARF SOB Resp failure Recommend: - cont with BIPAP as tolerated, repeat ABG, 08/14/40% - IV diuresis, Lasix 60mg IV BID - Hold IVF - Broad spectrum antibiotics as per ID - HOLD BP meds for now - repeat CXR in AM - re-culture - monitor HH - FS control - NPO - ECHO, repeat - GI ppx - DVT ppx - Transfer to MICU
[2017-12-04 16:41] LABS: COMPLEMENT C4 34.4 mg/dL (14.0-44.0)
--- NOTE | 2017-12-04 17:19 | CP.PCM.PN ---
Subjective - Date & Time of Evaluation Date of Evaluation: 12/04/17 Time of Evaluation: 12:30 - Subjective Subjective: Nephrology Consultation Note: Assessment: critical Acute Hypoxic respi failure Acute Kidney Injury (N17.9) likely due to sepsis, wound infection. as continue to get worse, will evaluate for AIN, post inf GN DM, HTN (I12.0) active cigar smoker, obesity toe osteomyelitis with sepsis, Mitral valve infective endocarditis Plan pt placed on NRB and rapid response was called. pt was further managed by rapid response team hold IVF and agree with lasix IV No acute need for renal replacement therapy at this time. maintain hemodynamics stable.hold ACEI/ARB due to ROHINI. hold [employer] Monitor Input/Output, daily weights and renal function with basic metabolic panel cardiology, pulmonary consulted check c3/c4, ANCA and urine for eos outpt eval for microscopic hematuria Dose meds/antibiotics for reduced GFR. Avoid fleets enema/magnesium based laxatives. Avoid nephrotoxins/NSAIDs/ iodinated contrast (unless needed emergently) Glycemic control pt encouraged to stop smoking Further work up/management as per primary team Thanks for allowing me to participate in care of your patient. Will follow patient with you. Please call if any Qs. d/w team Dr Caden Muller Office: [phone] Chief Complaint: foot infection HPI: Pt is a 72 M with hx of diabetes Mellitus (9 years), hypertension (years) , active cigar smoker, obesity and Rt foot infection, recent ROHINI (peaked cr 2.1 ) presented with complaints of Rt foot wound infection. renal consult for ROHINI eval. his cr 1.1 in 2017 and at d/c last hospitalization Denies OTC/herbal meds or NSAIDs No recent iodinated contrast exposure.no episodes of low BP. ROS: pt c/o SOB. unable to provide much hx Physical Examination: General Appearance: uncomfortable, in acute respiratory distress, restless . obese. o2 sat down to 60s on o2 via nc @ 2 L/min Vitals reviewed and noted as below Head; Atraumatic, normocephalic ENT: no ulcers no thrush. Tongue is midline. Oropharynx: no rash or ulcers. EYES: Pupils are equal, round and reactive to light accommodation. Eye muscles and extraocular movement intact. Sclera is anicteric. Neck; supple no lymphadenopathy, no thyromegaly or bruit Lungs: Increased respiratory rate/effort. Breath sounds bilateral with wheeze/ crackles Heart: Normal rate. s1s2 normal. No rub or gallop. Extremities: Rt pedal edema. No varicose veins. Rt foot dressed. pedal pulses diminished Neurological: Patient is restless Skin: Warm and dry. Normal turgor. Palpitation: Normal elasticity for age. has rash of psoriasis. also petechial rash on upper extremities Abdomen: Abdomen is soft. Bowel sounds +. There is no abdominal tenderness, no guarding/rigidity no organomegaly Psych: normal insight and normal affect/mood MSK: no joint tenderness or swelling. Digits and nails normal, no deformity : kidney or bladder not palpable Labs/imaging reviewed. Past medical history, past surgical history, family history, social history, allergy reviewed and noted as below Family hx: no hx of CKD. Rest non-contributory workup: renal SONO: WNL UA large blood Objective - Vital Signs/Intake and Output Vital Signs (last 24 hours): Temp Pulse Resp BP Pulse Ox 97.8 F 61 20 126/63 91 L 12/04/17 07:30 12/04/17 14:49 12/04/17 07:30 12/04/17 13:27 12/04/17 07:30 Intake and Output: 12/04/17 12/04/17 06:59 18:59 Intake Total 120 240 Output Total 200 Balance -80 240 - Medications Medications: Current Medications Acetaminophen (Tylenol 325mg Tab) 650 mg PO Q6H PRN PRN Reason: Fever >100.4 F Amlodipine Besylate (Norvasc) 10 mg PO DAILY [facility] Last Admin: 12/04/17 09:19 Dose: 10 mg Aspirin (Aspirin Chewable) 81 mg PO DAILY [facility] Last Admin: 12/04/17 09:19 Dose: 81 mg Atorvastatin Calcium (Lipitor) 10 mg PO DIN [facility] Last Admin: 12/03/17 17:42 Dose: 10 mg Furosemide (Lasix) 60 mg IVP ONCE ONE Stop: 12/04/17 18:01 Heparin Sodium (Porcine) (Heparin) 5,000 units SC Q8 GERRY PRN Reason: Protocol Hydralazine HCl (Apresoline) 25 mg PO Q4 PRN PRN Reason: Other Daptomycin 690 mg/ Sodium (Chloride) 100 mls @ 200 mls/hr IV Q24H [facility] Stop: 12/29/17 15:01 Last Admin: 12/03/17 15:59 Dose: 200 mls/hr Insulin Detemir (Levemir) 42 unit SC HS [facility] Last Admin: 12/03/17 22:36 Dose: 42 unit Insulin Human Regular (Humulin R High) 0 units SC ACHS [facility] PRN Reason: Protocol Last Admin: 12/04/17 13:25 Dose: 1 units Levalbuterol HCl (Xopenex) 0.63 mg IH [id number] [facility] Last Admin: 12/04/17 14:47 Dose: 0.63 mg Levalbuterol HCl (Xopenex) 1.25 mg IH [id number] PRN PRN Reason: Shortness of Breath Metoprolol Tartrate (Lopressor) 50 mg PO BID [facility] Last Admin: 12/04/17 13:27 Dose: 50 mg Multivitamins (Thera Tab) 1 tab PO DAILY [facility] Last Admin: 12/04/17 09:19 Dose: 1 tab Pantoprazole Sodium (Protonix Ec Tab) 40 mg PO 0600 [facility] Last Admin: 12/04/17 06:16 Dose: 40 mg Tramadol HCl (Ultram) 50 mg PO Q8H PRN PRN Reason: Pain, moderate (4-7) Last Admin: 12/03/17 11:02 Dose: 50 mg - Labs Labs: 12/04/17 12:30 12/04/17 12:30
[2017-12-04] MEDS ORDERED: Vancomycin 1gm in NS 250ml 1 GM/250 ML BAG IVPB STA (18:53)
[2017-12-04] MEDS: Meropenem 500 MG in Sodium Chloride 0.9% 50 ML IVPB SCH (19:51)
--- NOTE | 2017-12-04 20:49 | CARD ---
APPROVED REPORT EKG Measurement Heart [id number] <Conclusion> Sinus rhythm with 1st degree AV block Artifacts Incomplete right bundle branch block Borderline ECG
[2017-12-04] MEDS: Insulin Detemir 100 units/ml Vial (Levemir) SC SCH (22:06)
[2017-12-04] MEDS ORDERED: Metoprolol 1 mg/ml Inj IVP ONE (23:17)
--- NOTE | 2017-12-05 00:25 | PN ---
DATE: 12/04/2017 SUBJECTIVE: The patient was seen earlier this morning in room 578, bed 2, earlier today. Patient was found having short of breath. No chest pain, there is no abdominal pain, no diarrhea or constipation. He is short of breath. He is weak. PHYSICAL EXAMINATION: VITAL SIGNS: Temperature is 98, T-max is 99.8, blood pressure is 118/49, respiratory rate of 21, 90% saturation, pulse ox was down to 70 earlier. HEENT: Unremarkable. NECK: Supple. LUNGS: Decreased breath sounds. HEART: Normal S1, S2. ABDOMEN: Soft, nontender. EXTREMITIES: Examination of foot with Dr. Chowdhury present , no discharge and appears his incision site is clean. LABORATORY DATA: [place] [address], hemoglobin of 11, platelets of 230. BUN of 36, creatinine of 2.8, troponin is elevated at 0.44. Urinalysis is noted. Immunology is reviewed. Microbiology reveals the urine to have Klebsiella pneumoniae, quintero-sensitive. There is staph on the right foot and the sensitivity of that from the is pending. There is staph on the right foot from the that is quintero-sensitive. Review of the cultures from the last admission reveals the patient have positive Staph aureus, which is quintero-sensitive, Staph aureus in the blood and repeat blood cultures are positive. Blood cultures from the at this admission is reported to be negative. Patient is currently on daptomycin. Dr. Yaniv Marino's note is reviewed. Patient had a chest x-ray, no active pulmonary disease, had an MRI of the foot which is consistent with osteomyelitis. ASSESSMENT AND PLAN: A 72-year-old male with a sensitive Staphylococcus aureus bacteremia, mitral valve endocarditis, right foot skin and soft tissue infection with methicillin-resistant Staphylococcus aureus with osteomyelitis, diabetic, hypertensive, dyslipidemia, psoriasis, who was admitted with acute kidney injury, and on daptomycin today. Patient developed acute shortness of breath, rapid response, systemic inflammatory response syndrome. We will give one dose of vancomycin, add meropenem, had repeat quintero cultures, blood, urine and sputum culture and we will make further recommendations upon availability of initial results. We will follow closely with you. Case discussed with Dr. Reagan Mendez. Jesús Hu MD [facility] # [id number]
[2017-12-05] MEDS: Levalbuterol 0.63 MG/3 ML Inhal Soln UD IH SCH ×2 (01:15→08:01)
[2017-12-05] MEDS: Pantoprazole 40 mg EC Tab PO SCH (05:30)
[2017-12-05 06:26] LABS: BASO # 0.01 K/mm3 (0.0-2.0); BASO % 0.1 % (0.0-3.0); EOS # 0.2 (0.0-0.7); EOS % 1.2 % (1.5-5.0); GRAN # 14.76 (1.4-6.5); GRAN % 87.6 % (50.0-68.0); HEMOGLOBIN 11.2 g/dL (14.0-18.0); LYMPH # 0.8 (1.2-3.4); LYMPH % 4.5 % (22.0-35.0); MEAN CELL VOLUME 88.8 fl (80.0-105.0); MEAN CORPUSCULAR HEMOGLOBIN 28.6 pg (25.0-35.0); MEAN CORPUSCULAR HGB CONC 32.2 g/dl (31.0-37.0); MEAN PLATELET VOLUME 9.3 fl (7.0-11.0); MONO # 1.1 (0.1-0.6); MONO % 6.6 % (1.0-6.0); PLATELET COUNT 190 10^3/uL (120.0-450.0); RBC 3.92 10^6/uL (3.5-6.1); RED CELL DISTRIBUTION WIDTH 14.8 % (11.5-14.5); WHITE BLOOD COUNT 16.8 10^3/ul (4.5-11.0)
[2017-12-05 07:06] LABS: ALB/GLOB RATIO 0.6 (1.1-1.8); ALBUMIN 2.5 g/dL (3.0-4.8); CALCIUM 8.9 mg/dL (8.4-10.5)
--- NOTE | 2017-12-05 07:15 | DS ---
HISTORY OF PRESENT ILLNESS: He should go back to subacute rehab today where he came from. I discussed this with Dr. Hu and he is going to change his antibiotics around, so he can go there. He is comfortable in bed. Also discussed this with Podiatry that they can do any procedures on his foot and go back there with wound care for his foot ulcer and IV antibiotics. PHYSICAL EXAMINATION: VITAL SIGNS: He has a 97.8 temperature, 85 pulse, 164/81 blood pressure, 20 respiratory rate, 91% O2 sat on nasal cannula. HEENT: His head is atraumatic and normocephalic. HEART: Regular rate. LUNGS: Decreased breath sounds, but clear. ABDOMEN: Soft, morbidly obese. EXTREMITIES: Right foot got infection and is bandaged. He needs to go for IV antibiotics, also for endocarditis of his mitral valve and also continue up there and do well. If continues to feel well this am and improve and all okay with his specialists. Reagan Mendez DO MTDMarisela
[2017-12-05] MEDS: Insulin Reg-HIGH-Coverage SC SCH ×4 (07:44→22:11)
[2017-12-05 07:53] LABS: EOSINOPHIL 1 % (0.0-3.0); LYMPHOCYTE 2 % (22.0-35.0); MONOCYTE 8 % (1.0-6.0); NEUTROPHIL 89 % (50.0-70.0); PLATELET ESTIMATE NORMAL (NORMAL)
[2017-12-05 08:36] LABS: ARTERIAL BLOOD GAS HCO3 24.1 mmol/L (21-28); ARTERIAL BLOOD GAS HEMOGLOBIN 11.7 g/dL (11.7-17.4); ARTERIAL BLOOD GAS O2 CAPACITY 16.1 mL/dl (16-24); ARTERIAL BLOOD GAS O2 CONTENT 14.8 ML/dl (15-23); ARTERIAL BLOOD GAS O2 SAT 92.2 % (95-98); ARTERIAL BLOOD GAS PCO2 38 mm/Hg (35-45); ARTERIAL BLOOD GAS PH 7.41 (7.35-7.45); ARTERIAL BLOOD GAS TCO2 25.3 mmol.L (22-28)
[2017-12-05] MEDS: Multivitamin Therapeutic Tab PO SCH (09:22)
[2017-12-05] MEDS: Metoprolol 1 mg/ml Inj IVP SCH ×3 (09:27→21:41)
--- NOTE | 2017-12-05 09:32 | RAD ---
HISTORY: follow up COMPARISON: 12/04/2017 FINDINGS: LUNGS: There is moderate to severe vascular congestion. There is a pleural based density in the right upper lobe which has increased. This could represent a loculated effusion or focal pneumonia PLEURA: No significant pleural effusion identified, no pneumothorax apparent. CARDIOVASCULAR: Normal. OSSEOUS STRUCTURES: No significant abnormalities. VISUALIZED UPPER ABDOMEN: Normal. OTHER FINDINGS: None. IMPRESSION: There is moderate to severe vascular congestion. There is a pleural based density in the right upper lobe which has increased. This could represent a loculated effusion or focal pneumonia
[2017-12-05] MEDS: Meropenem 500 MG in Sodium Chloride 0.9% 50 ML IVPB SCH ×2 (09:39→22:12)
[2017-12-05] MEDS: Albumin Human 25% (12.5 gm/50 ml) IV SCH ×4 (09:40→21:28)
--- NOTE | 2017-12-05 10:49 | CP.CCUPN ---
<Enrique Brand - Last Filed: 12/05/17 10:39> CCU Subjective - Physician Review Subjective (Free Text): Patient seen and examined at bedside. Patient complaining of pain in his right foot. Denies chest pain, shortness of breath, nausea, vomiting, diarrhea, fever , chills. CCU Objective - Vital Signs / Intake & Output Vital Signs (Last 4 hours): Vital Signs Pulse Resp BP Pulse Ox 12/05/17 09:27 120 H 111/59 L 12/05/17 09:25 111/74 12/05/17 09:11 116 H 21 89/54 L 12/05/17 08:00 119/74 12/05/17 06:50 108 H 22 98 12/05/17 06:40 107 H 23 99 Intake and Output (Last 8hrs): Intake & Output 12/04/17 12/05/17 12/05/17 22:59 06:59 14:59 Intake Total 280 360 Output Total 550 Balance 280 -190 Intake: IV 100 360 Left Upper arm 100 360 Oral 180 Output: Urine 550 Urine, Voided 550 - Physical Exam Head: Positive for: Atraumatic, Normocephalic Pupils: Positive for: PERRL Extroacular Muscles: Positive for: EOMI Conjunctiva: Positive for: Normal Mouth: Positive for: Moist Mucous Membranes Neck: Positive for: Normal Range of Motion Respiratory/Chest: Positive for: Clear to Auscultation, Rales (Diffuse B/l ). Negative for: Respiratory Distress, Accessory Muscle Use Cardiovascular: Positive for: Regular Rate and Rhythm, Normal S1, S2. Negative for: Murmurs Abdomen: Positive for: Normal Bowel Sounds. Negative for: Tenderness, Distention, Peritoneal Signs Upper Extremity: Positive for: Normal Inspection, Edema. Negative for: Cyanosis Lower Extremity: Positive for: Deformity (Right foot bandaged) Neurological: Positive for: GCS=15, CN II-XII Intact, Speech Normal Skin: Positive for: Warm, Dry, Normal Color. Negative for: Rashes Psychiatric: Positive for: Alert, Oriented x 3, Normal Insight, Normal Concentration - Medications Active Medications: Active Medications Generic Name Dose Route Start Last Admin Trade Name Freq PRN Reason Stop Dose Admin Acetaminophen 650 mg 12/01/17 10:16 Tylenol 325mg Tab PO Q6H PRN Fever >100.4 F Albumin Human 12.5 gm 12/05/17 09:15 12/05/17 09:40 Albumin Human 25% (12.5 Gm/50 Ml) IV 12.5 gm Q4H GERRY Administration Albuterol/Ipratropium 3 ml 12/05/17 14:00 Duoneb 3 Mg/0.5 Mg (3 Ml) Ud IH [id number] GERRY Aspirin 81 mg 12/01/17 10:30 12/05/17 09:19 Aspirin Chewable PO 81 mg DAILY GERRY Administration Atorvastatin Calcium 10 mg 12/01/17 17:00 12/04/17 17:43 Lipitor PO 10 mg DIN GERRY Administration Heparin Sodium (Porcine) 5,000 units 12/04/17 22:00 12/05/17 05:30 Heparin SC 5,000 units Q8 GERRY Administration Protocol Hydralazine HCl 25 mg 12/03/17 09:28 Apresoline PO Q4 PRN Other Hydralazine HCl 10 mg 12/04/17 21:43 12/04/17 21:55 Apresoline IVP 10 mg Q6 PRN Administration SBP >150 and/or DBP >90 Meropenem 500 mg/ Sodium 50 mls @ 100 mls/hr 12/04/17 18:51 12/05/17 09:39 Chloride IVPB 12/13/17 18:52 100 mls/hr Q12 GERRY Administration Protocol Daptomycin 690 mg/ Sodium 100 mls @ 200 mls/hr 12/06/17 10:00 Chloride IV 12/29/17 15[facility]01 [facility] Detemir 42 unit 12/01/17 22:00 12/04/17 22:06 Levemir SC 42 unit HS GERRY Administration Insulin Human Regular 0 units 12/01/17 11:30 12/05/17 07:44 Humulin R High SC Not Given A[facility]S [facility] Protocol Levalbuterol HCl 0.63 mg 12/01/17 14:00 12/05/17 08:01 Xopenex IH 0.63 mg [id number] GERRY Administration Levalbuterol HCl 1.25 mg 12/01/17 10:16 Xopenex IH [id number] PRN Shortness of Breath Metoprolol Tartrate 5 mg 12/05/17 09:00 12/05/17 09:27 Lopressor IVP 5 mg Q6H GERRY Administration Multivitamins 1 tab 12/02/17 10:00 12/05/17 09:22 Thera Tab PO 1 tab DAILY GERRY Administration Pantoprazole Sodium 40 mg 12/02/17 06:00 12/05/17 05:30 Protonix Ec Tab PO 40 mg 0600 GERRY Administration Tramadol HCl 50 mg 12/01/17 10:16 12/03/17 11:02 Ultram PO 50 mg Q8H PRN Administration Pain, moderate (4-7) - Patient Studies Lab Studies: Lab Studies 12/05/17 12/05/17 12/05/17 Range/Units 08:30 07:22 06:10 WBC (4.5-11.0) 10^3/ul RBC (3.5-6.1) 10^6/uL Hgb (14.0-18.0) g/dL Hct (42.0-52.0) % MCV (80.0-105.0) fl MCH (25.0-35.0) pg MCHC (31.0-37.0) g/dl RDW (11.5-14.5) % Plt Count (120.0-450.0) 10^3/uL MPV (7.0-11.0) fl Gran % (50.0-68.0) % Lymph % (Auto) (22.0-35.0) % Maries % (Auto) (1.0-6.0) % Eos % (Auto) (1.5-5.0) % Baso % (Auto) (0.0-3.0) % Gran # (1.4-6.5) Lymph # (Auto) (1.2-3.4) Maries # (Auto) (0.1-0.6) Eos # (Auto) (0.0-0.7) Baso # (Auto) (0.0-2.0) K/mm3 Neutrophils % (Manual) (50.0-70.0) % Lymphocytes % (Manual) (22.0-35.0) % Monocytes % (Manual) (1.0-6.0) % Eosinophils % (Manual) (0.0-3.0) % Platelet Evaluation (NORMAL) pCO2 38 (35-45) mm/Hg pO2 55.0 L (80-100) mm/Hg HCO3 24.1 (21-28) mmol/L ABG pH 7.41 (7.35-7.45) ABG Total CO2 25.3 (22-28) mmol.L ABG O2 Saturation 92.2 L (95-98) % ABG O2 Content 14.8 L (15-23) ML/dl ABG Base Excess -0.4 (-2.0-3.0) mmol/L ABG Hemoglobin 11.7 (11.7-17.4) g/dL ABG Carboxyhemoglobin 1.7 H (0.5-1.5) % POC ABG HHb (Measured) 7.6 H (0-5) % ABG Methemoglobin 0.9 (0.0-3.0) % ABG O2 Capacity 16.1 (16-24) mL/dl Hgb O2 Saturation 89.8 L (95.0-98.0) % FiO2 40.0 % Sodium 139 (132-148) mmol/L Potassium 4.3 (3.6-5.0) mmol/L Chloride 102 (98-107) mmol/L Carbon Dioxide 28 (21-33) mmol/L Anion Gap 13 (10-20) BUN 49 H (7-21) mg/dL Creatinine 3.2 H (0.8-1.5) mg/dl Est GFR ( Amer) 23 Est GFR (Non-Af Amer) 19 POC Glucose (mg/dL) 123 H (65-110) mg/dL Random Glucose 137 H (70-110) mg/dL Calcium 8.9 (8.4-10.5) mg/dL Total Bilirubin 0.8 (0.2-1.3) mg/dL AST 31 (17-59) U/L ALT 36 (7-56) U/L Alkaline Phosphatase 142 H (38-126) U/L Troponin I ng/mL Total Protein 6.6 (5.8-8.3) g/dL Albumin 2.5 L (3.0-4.8) g/dL Globulin 4.1 gm/dL Albumin/Globulin Ratio 0.6 L (1.1-1.8) Complement C3 (88.0-165.0) mg/dL Complement C4 (14.0-44.0) mg/dL 03/12/05/17 12/04/17 Range/Units 06:10 00:30 21:50 WBC 16.8 H (4.5-11.0) 10^3/ul RBC 3.92 (3.5-6.1) 10^6/uL Hgb 11.2 L (14.0-18.0) g/dL Hct 34.8 L (42.0-52.0) % MCV 88.8 (80.0-105.0) fl MCH 28.6 (25.0-35.0) pg MCHC 32.2 (31.0-37.0) g/dl RDW 14.8 H (11.5-14.5) % Plt Count 190 (120.0-450.0) 10^3/uL MPV 9.3 (7.0-11.0) fl Gran % 87.6 H (50.0-68.0) % Lymph % (Auto) 4.5 L (22.0-35.0) % Maries % (Auto) 6.6 H (1.0-6.0) % Eos % (Auto) 1.2 L (1.5-5.0) % Baso % (Auto) 0.1 (0.0-3.0) % Gran # 14.76 H (1.4-6.5) Lymph # (Auto) 0.8 L (1.2-3.4) Maries # (Auto) 1.1 H (0.1-0.6) Eos # (Auto) 0.2 (0.0-0.7) Baso # (Auto) 0.01 (0.0-2.0) K/mm3 Neutrophils % (Manual) 89 H (50.0-70.0) % Lymphocytes % (Manual) 2 L (22.0-35.0) % Monocytes % (Manual) 8 H (1.0-6.0) % Eosinophils % (Manual) 1 (0.0-3.0) % Platelet Evaluation Normal (NORMAL) pCO2 (35-45) mm/Hg pO2 (80-100) mm/Hg HCO3 (21-28) mmol/L ABG pH (7.35-7.45) ABG Total CO2 (22-28) mmol.L ABG O2 Saturation (95-98) % ABG O2 Content (15-23) ML/dl ABG Base Excess (-2.0-3.0) mmol/L ABG Hemoglobin (11.7-17.4) g/dL ABG Carboxyhemoglobin (0.5-1.5) % POC ABG HHb (Measured) (0-5) % ABG Methemoglobin (0.0-3.0) % ABG O2 Capacity (16-24) mL/dl Hgb O2 Saturation (95.0-98.0) % FiO2 % Sodium (132-148) mmol/L Potassium (3.6-5.0) mmol/L Chloride (98-107) mmol/L Carbon Dioxide (21-33) mmol/L Anion Gap (10-20) BUN (7-21) mg/dL Creatinine (0.8-1.5) mg/dl Est GFR ( Amer) Est GFR (Non-Af Amer) POC Glucose (mg/dL) 146 H (65-110) mg/dL Random Glucose (70-110) mg/dL Calcium (8.4-10.5) mg/dL Total Bilirubin (0.2-1.3) mg/dL AST (17-59) U/L ALT (7-56) U/L Alkaline Phosphatase (38-126) U/L Troponin I 0.27 H* ng/mL Total Protein (5.8-8.3) g/dL Albumin (3.0-4.8) g/dL Globulin gm/dL Albumin/Globulin Ratio (1.1-1.8) Complement C3 (88.0-165.0) mg/dL Complement C4 (14.0-44.0) mg/dL 12/04/17 12/04/17 12/04/17 Range/Units 21:15 16:18 12:30 WBC (4.5-11.0) 10^3/ul RBC (3.5-6.1) 10^6/uL Hgb (14.0-18.0) g/dL Hct (42.0-52.0) % MCV (80.0-105.0) fl MCH (25.0-35.0) pg MCHC (31.0-37.0) g/dl RDW (11.5-14.5) % Plt Count (120.0-450.0) 10^3/uL MPV (7.0-11.0) fl Gran % (50.0-68.0) % Lymph % (Auto) (22.0-35.0) % Maries % (Auto) (1.0-6.0) % Eos % (Auto) (1.5-5.0) % Baso % (Auto) (0.0-3.0) % Gran # (1.4-6.5) Lymph # (Auto) (1.2-3.4) Maries # (Auto) (0.1-0.6) Eos # (Auto) (0.0-0.7) Baso # (Auto) (0.0-2.0) K/mm3 Neutrophils % (Manual) (50.0-70.0) % Lymphocytes % (Manual) (22.0-35.0) % Monocytes % (Manual) (1.0-6.0) % Eosinophils % (Manual) (0.0-3.0) % Platelet Evaluation (NORMAL) pCO2 (35-45) mm/Hg pO2 (80-100) mm/Hg HCO3 (21-28) mmol/L ABG pH (7.35-7.45) ABG Total CO2 (22-28) mmol.L ABG O2 Saturation (95-98) % ABG O2 Content (15-23) ML/dl ABG Base Excess (-2.0-3.0) mmol/L ABG Hemoglobin (11.7-17.4) g/dL ABG Carboxyhemoglobin (0.5-1.5) % POC ABG HHb (Measured) (0-5) % ABG Methemoglobin (0.0-3.0) % ABG O2 Capacity (16-24) mL/dl Hgb O2 Saturation (95.0-98.0) % FiO2 % Sodium 137 (132-148) mmol/L Potassium 4.3 (3.6-5.0) mmol/L Chloride 101 (98-107) mmol/L Carbon Dioxide 28 (21-33) mmol/L Anion Gap 12 (10-20) BUN 41 H (7-21) mg/dL Creatinine 2.7 H (0.8-1.5) mg/dl Est GFR ( Amer) 28 Est GFR (Non-Af Amer) 23 POC Glucose (mg/dL) 154 H (65-110) mg/dL Random Glucose 158 H (70-110) mg/dL Calcium 9.0 (8.4-10.5) mg/dL Total Bilirubin 1.2 (0.2-1.3) mg/dL AST 45 (17-59) U/L ALT 32 (7-56) U/L Alkaline Phosphatase 167 H D (38-126) U/L Troponin I 0.29 H* D 0.44 H* D ng/mL Total Protein 7.4 (5.8-8.3) g/dL Albumin 2.8 L (3.0-4.8) g/dL Globulin 4.6 gm/dL Albumin/Globulin Ratio 0.6 L (1.1-1.8) Complement C3 (88.0-165.0) mg/dL Complement C4 (14.0-44.0) mg/dL 12/04/17 12/04/17 12/04/17 Range/Units 12:30 12:30 12:21 WBC 19.6 H (4.5-11.0) 10^3/ul RBC 4.08 (3.5-6.1) 10^6/uL Hgb 11.9 L (14.0-18.0) g/dL Hct 36.4 L (42.0-52.0) % MCV 89.2 (80.0-105.0) fl MCH 29.2 (25.0-35.0) pg MCHC 32.7 (31.0-37.0) g/dl RDW 14.7 H (11.5-14.5) % Plt Count 230 (120.0-450.0) 10^3/uL MPV 9.9 (7.0-11.0) fl Gran % (50.0-68.0) % Lymph % (Auto) (22.0-35.0) % Maries % (Auto) (1.0-6.0) % Eos % (Auto) (1.5-5.0) % Baso % (Auto) (0.0-3.0) % Gran # (1.4-6.5) Lymph # (Auto) (1.2-3.4) Maries # (Auto) (0.1-0.6) Eos # (Auto) (0.0-0.7) Baso # (Auto) (0.0-2.0) K/mm3 Neutrophils % (Manual) (50.0-70.0) % Lymphocytes % (Manual) (22.0-35.0) % Monocytes % (Manual) (1.0-6.0) % Eosinophils % (Manual) (0.0-3.0) % Platelet Evaluation (NORMAL) pCO2 51 H (35-45) mm/Hg pO2 96.0 (80-100) mm/Hg HCO3 25.1 (21-28) mmol/L ABG pH 7.30 L (7.35-7.45) ABG Total CO2 26.7 (22-28) mmol.L ABG O2 Saturation 98.0 (95-98) % ABG O2 Content 15.7 (15-23) ML/dl ABG Base Excess -1.8 (-2.0-3.0) mmol/L ABG Hemoglobin 11.6 L (11.7-17.4) g/dL ABG Carboxyhemoglobin 2.0 H (0.5-1.5) % POC ABG HHb (Measured) 1.9 (0-5) % ABG Methemoglobin 0.8 (0.0-3.0) % ABG O2 Capacity 16.0 (16-24) mL/dl Hgb O2 Saturation 95.3 (95.0-98.0) % FiO2 100.0 % Sodium (132-148) mmol/L Potassium (3.6-5.0) mmol/L Chloride (98-107) mmol/L Carbon Dioxide (21-33) mmol/L Anion Gap (10-20) BUN (7-21) mg/dL Creatinine (0.8-1.5) mg/dl Est GFR ( Amer) Est GFR (Non-Af Amer) POC Glucose (mg/dL) (65-110) mg/dL Random Glucose (70-110) mg/dL Calcium (8.4-10.5) mg/dL Total Bilirubin (0.2-1.3) mg/dL AST (17-59) U/L ALT (7-56) U/L Alkaline Phosphatase (38-126) U/L Troponin I ng/mL Total Protein (5.8-8.3) g/dL Albumin (3.0-4.8) g/dL Globulin gm/dL Albumin/Globulin Ratio (1.1-1.8) Complement C3 117.0 (88.0-165.0) mg/dL Complement C4 34.4 (14.0-44.0) mg/dL 12/04/17 12/04/17 Range/Units 12:07 11:39 WBC (4.5-11.0) 10^3/ul RBC (3.5-6.1) 10^6/uL Hgb (14.0-18.0) g/dL Hct (42.0-52.0) % MCV (80.0-105.0) fl MCH (25.0-35.0) pg MCHC (31.0-37.0) g/dl RDW (11.5-14.5) % Plt Count (120.0-450.0) 10^3/uL MPV (7.0-11.0) fl Gran % (50.0-68.0) % Lymph % (Auto) (22.0-35.0) % Maries % (Auto) (1.0-6.0) % Eos % (Auto) (1.5-5.0) % Baso % (Auto) (0.0-3.0) % Gran # (1.4-6.5) Lymph # (Auto) (1.2-3.4) Maries # (Auto) (0.1-0.6) Eos # (Auto) (0.0-0.7) Baso # (Auto) (0.0-2.0) K/mm3 Neutrophils % (Manual) (50.0-70.0) % Lymphocytes % (Manual) (22.0-35.0) % Monocytes % (Manual) (1.0-6.0) % Eosinophils % (Manual) (0.0-3.0) % Platelet Evaluation (NORMAL) pCO2 (35-45) mm/Hg pO2 (80-100) mm/Hg HCO3 (21-28) mmol/L ABG pH (7.35-7.45) ABG Total CO2 (22-28) mmol.L ABG O2 Saturation (95-98) % ABG O2 Content (15-23) ML/dl ABG Base Excess (-2.0-3.0) mmol/L ABG Hemoglobin (11.7-17.4) g/dL ABG Carboxyhemoglobin (0.5-1.5) % POC ABG HHb (Measured) (0-5) % ABG Methemoglobin (0.0-3.0) % ABG O2 Capacity (16-24) mL/dl Hgb O2 Saturation (95.0-98.0) % FiO2 % Sodium (132-148) mmol/L Potassium (3.6-5.0) mmol/L Chloride (98-107) mmol/L Carbon Dioxide (21-33) mmol/L Anion Gap (10-20) BUN (7-21) mg/dL Creatinine (0.8-1.5) mg/dl Est GFR ( Amer) Est GFR (Non-Af Amer) POC Glucose (mg/dL) 151 H 189 H (65-110) mg/dL Random Glucose (70-110) mg/dL Calcium (8.4-10.5) mg/dL Total Bilirubin (0.2-1.3) mg/dL AST (17-59) U/L ALT (7-56) U/L Alkaline Phosphatase (38-126) U/L Troponin I ng/mL Total Protein (5.8-8.3) g/dL Albumin (3.0-4.8) g/dL Globulin gm/dL Albumin/Globulin Ratio (1.1-1.8) Complement C3 (88.0-165.0) mg/dL Complement C4 (14.0-44.0) mg/dL Laboratory Results - last 24 hr 12/04/17 12/04/17 12/04/17 11:39 12:07 12:21 WBC RBC Hgb Hct MCV MCH MCHC RDW Plt Count MPV Gran % Lymph % (Auto) Maries % (Auto) Eos % (Auto) Baso % (Auto) Gran # Lymph # (Auto) Maries # (Auto) Eos # (Auto) Baso # (Auto) Neutrophils % (Manual) Lymphocytes % (Manual) Monocytes % (Manual) Eosinophils % (Manual) Platelet Evaluation pCO2 51 H pO2 96.0 HCO3 25.1 ABG pH 7.30 L ABG Total CO2 26.7 ABG O2 Saturation 98.0 ABG O2 Content 15.7 ABG Base Excess -1.8 ABG Hemoglobin 11.6 L ABG Carboxyhemoglobin 2.0 H POC ABG HHb (Measured) 1.9 ABG Methemoglobin 0.8 ABG O2 Capacity 16.0 Hgb O2 Saturation 95.3 FiO2 100.0 Sodium Potassium Chloride Carbon Dioxide Anion Gap BUN Creatinine Est GFR ( Amer) Est GFR (Non-Af Amer) POC Glucose (mg/dL) 189 H 151 H Random Glucose Calcium Total Bilirubin AST ALT Alkaline Phosphatase Troponin I Total Protein Albumin Globulin Albumin/Globulin Ratio Complement C3 Complement C4 12/04/17 12/04/17 12/04/17 12:30 12:30 12:30 WBC 19.6 H RBC 4.08 Hgb 11.9 L Hct 36.4 L MCV 89.2 MCH 29.2 MCHC 32.7 RDW 14.7 H Plt Count 230 MPV 9.9 Gran % Lymph % (Auto) Maries % (Auto) Eos % (Auto) Baso % (Auto) Gran # Lymph # (Auto) Maries # (Auto) Eos # (Auto) Baso # (Auto) Neutrophils % (Manual) Lymphocytes % (Manual) Monocytes % (Manual) Eosinophils % (Manual) Platelet Evaluation pCO2 pO2 HCO3 ABG pH ABG Total CO2 ABG O2 Saturation ABG O2 Content ABG Base Excess ABG Hemoglobin ABG Carboxyhemoglobin POC ABG HHb (Measured) ABG Methemoglobin ABG O2 Capacity Hgb O2 Saturation FiO2 Sodium 137 Potassium 4.3 Chloride 101 Carbon Dioxide 28 Anion Gap 12 BUN 41 H Creatinine 2.7 H Est GFR ( Amer) 28 Est GFR (Non-Af Amer) 23 POC Glucose (mg/dL) Random Glucose 158 H Calcium 9.0 Total Bilirubin 1.2 AST 45 ALT 32 Alkaline Phosphatase 167 H D Troponin I 0.44 H* D Total Protein 7.4 Albumin 2.8 L Globulin 4.6 Albumin/Globulin Ratio 0.6 L Complement C3 117.0 Complement C4 34.4 12/04/17 12/04/17 12/04/17 16:18 21:15 21:50 WBC RBC Hgb Hct MCV MCH MCHC RDW Plt Count MPV Gran % Lymph % (Auto) Maries % (Auto) Eos % (Auto) Baso % (Auto) Gran # Lymph # (Auto) Maries # (Auto) Eos # (Auto) Baso # (Auto) Neutrophils % (Manual) Lymphocytes % (Manual) Monocytes % (Manual) Eosinophils % (Manual) Platelet Evaluation pCO2 pO2 HCO3 ABG pH ABG Total CO2 ABG O2 Saturation ABG O2 Content ABG Base Excess ABG Hemoglobin ABG Carboxyhemoglobin POC ABG HHb (Measured) ABG Methemoglobin ABG O2 Capacity Hgb O2 Saturation FiO2 Sodium Potassium Chloride Carbon Dioxide Anion Gap BUN Creatinine Est GFR ( Amer) Est GFR (Non-Af Amer) POC Glucose (mg/dL) 154 H 146 H Random Glucose Calcium Total Bilirubin AST ALT Alkaline Phosphatase Troponin I 0.29 H* D Total Protein Albumin Globulin Albumin/Globulin Ratio Complement C3 Complement C4 12/05/17 12/05/17 12/05/17 00:30 06:10 06:10 WBC 16.8 H RBC 3.92 Hgb 11.2 L Hct 34.8 L MCV 88.8 MCH 28.6 MCHC 32.2 RDW 14.8 H Plt Count 190 MPV 9.3 Gran % 87.6 H Lymph % (Auto) 4.5 L Maries % (Auto) 6.6 H Eos % (Auto) 1.2 L Baso % (Auto) 0.1 Gran # 14.76 H Lymph # (Auto) 0.8 L Maries # (Auto) 1.1 H Eos # (Auto) 0.2 Baso # (Auto) 0.01 Neutrophils % (Manual) 89 H Lymphocytes % (Manual) 2 L Monocytes % (Manual) 8 H Eosinophils % (Manual) 1 Platelet Evaluation Normal pCO2 pO2 HCO3 ABG pH ABG Total CO2 ABG O2 Saturation ABG O2 Content ABG Base Excess ABG Hemoglobin ABG Carboxyhemoglobin POC ABG HHb (Measured) ABG Methemoglobin ABG O2 Capacity Hgb O2 Saturation FiO2 Sodium 139 Potassium 4.3 Chloride 102 Carbon Dioxide 28 Anion Gap 13 BUN 49 H Creatinine 3.2 H Est GFR ( Amer) 23 Est GFR (Non-Af Amer) 19 POC Glucose (mg/dL) Random Glucose 137 H Calcium 8.9 Total Bilirubin 0.8 AST 31 ALT 36 Alkaline Phosphatase 142 H Troponin I 0.27 H* Total Protein 6.6 Albumin 2.5 L Globulin 4.1 Albumin/Globulin Ratio 0.6 L Complement C3 Complement C4 12/05/17 12/05/17 07:22 08:30 WBC RBC Hgb Hct MCV MCH MCHC RDW Plt Count MPV Gran % Lymph % (Auto) Maries % (Auto) Eos % (Auto) Baso % (Auto) Gran # Lymph # (Auto) Maries # (Auto) Eos # (Auto) Baso # (Auto) Neutrophils % (Manual) Lymphocytes % (Manual) Monocytes % (Manual) Eosinophils % (Manual) Platelet Evaluation pCO2 38 pO2 55.0 L HCO3 24.1 ABG pH 7.41 ABG Total CO2 25.3 ABG O2 Saturation 92.2 L ABG O2 Content 14.8 L ABG Base Excess -0.4 ABG Hemoglobin 11.7 ABG Carboxyhemoglobin 1.7 H POC ABG HHb (Measured) 7.6 H ABG Methemoglobin 0.9 ABG O2 Capacity 16.1 Hgb O2 Saturation 89.8 L FiO2 40.0 Sodium Potassium Chloride Carbon Dioxide Anion Gap BUN Creatinine Est GFR ( Amer) Est GFR (Non-Af Amer) POC Glucose (mg/dL) 123 H Random Glucose Calcium Total Bilirubin AST ALT Alkaline Phosphatase Troponin I Total Protein Albumin Globulin Albumin/Globulin Ratio Complement C3 Complement C4 EKG/Cardiology Studies: Cardiology / EKG Studies 12/04/17 12:07 EKG [ELECTROCARDIOGRAM] Stat Comment: Reason For Exam: SOB Fingerstick Blood Sugar Results: 123 Assessment/Plan - Assessment and Plan (Free Text) Plan: 72 year old male with past medical history of DM, HTN, Obesity, Mitral valve Infective Endocarditis, Osteomyelitis of right foot 2nd and 3rd toe, and ROHINI presents with hypoxemic respiratory failure in the setting of infective endocarditis. Patient has been switched from BIPAP to HFNC and improving. Patient had Echocardiogram this morning with preliminary read of no mitral regurgitation or worsening of EF as compared to echocardiogram done earlier this month. Cardiology recommends continuing current medical management with no role for thoracic surgery at this time. Neuro: AAOx3 Cardio: Continue Daptomycin and Merrem Await echo final results Maintain hemodynamic stability Maintain MAP > 65 Continue Lopressor Cardiology consulted Pulm: Maintain O2 sat > 90% HFNC Lasix 80 mg given this morning Consider lasix scheduled dose GI: Protonix CCD Nephro: ROHINI Klebsiella UTI Continue current management as per Nephro Avoid nephrotoxic medications Maintain euvolemia Heme/ID: Continue Daptomycin and Merrem MRSA osteomyelitis Afebrile, leukocytosis improving ID following Heparin for DVT prophylaxis Bhelle, PGY-2 <Romel Blackwell - Last Filed: 12/05/17 14:38> CCU Objective - Vital Signs / Intake & Output Vital Signs (Last 4 hours): Vital Signs Pulse Resp BP Pulse Ox 12/05/17 14:00 94 H 12/05/17 13:30 95 H 19 93 L 12/05/17 13:00 91 H 23 105/55 L 88 L 12/05/17 12:45 21 12/05/17 12:30 105 H 93 L 12/05/17 12:00 104 H 134/73 99 12/05/17 11:30 104 H 21 99 12/05/17 11:02 109/53 L 12/05/17 11:01 86 20 96 12/05/17 11:00 97 H 28 H 94 L 12/05/17 10:30 98 H 22 96 Intake and Output (Last 8hrs): Intake & Output 12/04/17 12/05/17 12/05/17 22:59 06:59 14:59 Intake Total 280 360 Output Total 550 Balance 280 -190 Intake: IV 100 360 Left Upper arm 100 360 Oral 180 Output: Urine 550 Urine, Voided 550 - Medications Active Medications: Active Medications Generic Name Dose Route Start Last Admin Trade Name Freq PRN Reason Stop Dose Admin Acetaminophen 650 mg 12/01/17 10:16 Tylenol 325mg Tab PO Q6H PRN Fever >100.4 F Albumin Human 12.5 gm 12/05/17 09:15 12/05/17 12:47 Albumin Human 25% (12.5 Gm/50 Ml) IV 12.5 gm Q4H GERRY Administration Albuterol/Ipratropium 3 ml 12/05/17 14:00 12/05/17 13:00 Duoneb 3 Mg/0.5 Mg (3 Ml) Ud IH 3 ml [id number] GERRY Administration Aspirin 81 mg 12/01/17 10:30 12/05/17 09:19 Aspirin Chewable PO 81 mg DAILY GERRY Administration Atorvastatin Calcium 10 mg 12/01/17 17:00 12/04/17 17:43 Lipitor PO 10 mg DIN GERRY Administration Heparin Sodium (Porcine) 5,000 units 12/04/17 22:00 12/05/17 13:53 Heparin SC 5,000 units Q8 GERRY Administration Protocol Hydralazine HCl 25 mg 12/03/17 09:28 Apresoline PO Q4 PRN Other Hydralazine HCl 10 mg 12/04/17 21:43 12/04/17 21:55 Apresoline IVP 10 mg Q6 PRN Administration SBP >150 and/or DBP >90 Meropenem 500 mg/ Sodium 50 mls @ 100 mls/hr 12/04/17 18:51 12/05/17 09:39 Chloride IVPB 12/13/17 18:52 100 mls/hr Q12 GERRY Administration Protocol Daptomycin 690 mg/ Sodium 100 mls @ 200 mls/hr 12/06/17 10:00 Chloride IV 12/29/17 15:01 QOTHERDAY GERRY Insulin Detemir 42 unit 12/01/17 22:00 12/04/17 22:06 Levemir SC 42 unit HS GERRY Administration Insulin Human Regular 0 units 12/01/17 11:30 12/05/17 12:00 Humulin R High SC 2 units ACHS GERRY Administration Protocol Levalbuterol HCl 0.63 mg 12/01/17 14:00 12/05/17 08:01 Xopenex IH 0.63 mg [id number] GERRY Administration Levalbuterol HCl 1.25 mg 12/01/17 10:16 Xopenex IH [id number] PRN Shortness of Breath Metoprolol Tartrate 5 mg 12/05/17 09:00 12/05/17 09:27 Lopressor IVP 5 mg Q6H GERRY Administration Multivitamins 1 tab 12/02/17 10:00 12/05/17 09:22 Thera Tab PO 1 tab DAILY GERRY Administration Pantoprazole Sodium 40 mg 12/02/17 06:00 12/05/17 05:30 Protonix Ec Tab PO 40 mg 0600 GERRY Administration Tramadol HCl 50 mg 12/01/17 10:16 12/03/17 11:02 Ultram PO 50 mg Q8H PRN Administration Pain, moderate (4-7) - Patient Studies Lab Studies: Lab Studies 12/05/17 12/05/17 12/05/17 Range/Units 11:49 08:30 07:22 WBC (4.5-11.0) 10^3/ul RBC (3.5-6.1) 10^6/uL Hgb (14.0-18.0) g/dL Hct (42.0-52.0) % MCV (80.0-105.0) fl MCH (25.0-35.0) pg MCHC (31.0-37.0) g/dl RDW (11.5-14.5) % Plt Count (120.0-450.0) 10^3/uL MPV (7.0-11.0) fl Gran % (50.0-68.0) % Lymph % (Auto) (22.0-35.0) % Maries % (Auto) (1.0-6.0) % Eos % (Auto) (1.5-5.0) % Baso % (Auto) (0.0-3.0) % Gran # (1.4-6.5) Lymph # (Auto) (1.2-3.4) Maries # (Auto) (0.1-0.6) Eos # (Auto) (0.0-0.7) Baso # (Auto) (0.0-2.0) K/mm3 Neutrophils % (Manual) (50.0-70.0) % Lymphocytes % (Manual) (22.0-35.0) % Monocytes % (Manual) (1.0-6.0) % Eosinophils % (Manual) (0.0-3.0) % Platelet Evaluation (NORMAL) pCO2 38 (35-45) mm/Hg pO2 55.0 L (80-100) mm/Hg HCO3 24.1 (21-28) mmol/L ABG pH 7.41 (7.35-7.45) ABG Total CO2 25.3 (22-28) mmol.L ABG O2 Saturation 92.2 L (95-98) % ABG O2 Content 14.8 L (15-23) ML/dl ABG Base Excess -0.4 (-2.0-3.0) mmol/L ABG Hemoglobin 11.7 (11.7-17.4) g/dL ABG Carboxyhemoglobin 1.7 H (0.5-1.5) % POC ABG HHb (Measured) 7.6 H (0-5) % ABG Methemoglobin 0.9 (0.0-3.0) % ABG O2 Capacity 16.1 (16-24) mL/dl Hgb O2 Saturation 89.8 L (95.0-98.0) % FiO2 40.0 % Sodium (132-148) mmol/L Potassium (3.6-5.0) mmol/L Chloride (98-107) mmol/L Carbon Dioxide (21-33) mmol/L Anion Gap (10-20) BUN (7-21) mg/dL Creatinine (0.8-1.5) mg/dl Est GFR ( Amer) Est GFR (Non-Af Amer) POC Glucose (mg/dL) 156 H 123 H (65-110) mg/dL Random Glucose (70-110) mg/dL Calcium (8.4-10.5) mg/dL Total Bilirubin (0.2-1.3) mg/dL AST (17-59) U/L ALT (7-56) U/L Alkaline Phosphatase (38-126) U/L Troponin I ng/mL Total Protein (5.8-8.3) g/dL Albumin (3.0-4.8) g/dL Globulin gm/dL Albumin/Globulin Ratio (1.1-1.8) Complement C3 (88.0-165.0) mg/dL Complement C4 (14.0-44.0) mg/dL 12/05/17 12/05/17 12/05/17 Range/Units 06:10 06:10 00:30 WBC 16.8 H (4.5-11.0) 10^3/ul RBC 3.92 (3.5-6.1) 10^6/uL Hgb 11.2 L (14.0-18.0) g/dL Hct 34.8 L (42.0-52.0) % MCV 88.8 (80.0-105.0) fl MCH 28.6 (25.0-35.0) pg MCHC 32.2 (31.0-37.0) g/dl RDW 14.8 H (11.5-14.5) % Plt Count 190 (120.0-450.0) 10^3/uL MPV 9.3 (7.0-11.0) fl Gran % 87.6 H (50.0-68.0) % Lymph % (Auto) 4.5 L (22.0-35.0) % Maries % (Auto) 6.6 H (1.0-6.0) % Eos % (Auto) 1.2 L (1.5-5.0) % Baso % (Auto) 0.1 (0.0-3.0) % Gran # 14.76 H (1.4-6.5) Lymph # (Auto) 0.8 L (1.2-3.4) Maries # (Auto) 1.1 H (0.1-0.6) Eos # (Auto) 0.2 (0.0-0.7) Baso # (Auto) 0.01 (0.0-2.0) K/mm3 Neutrophils % (Manual) 89 H (50.0-70.0) % Lymphocytes % (Manual) 2 L (22.0-35.0) % Monocytes % (Manual) 8 H (1.0-6.0) % Eosinophils % (Manual) 1 (0.0-3.0) % Platelet Evaluation Normal (NORMAL) pCO2 (35-45) mm/Hg pO2 (80-100) mm/Hg HCO3 (21-28) mmol/L ABG pH (7.35-7.45) ABG Total CO2 (22-28) mmol.L ABG O2 Saturation (95-98) % ABG O2 Content (15-23) ML/dl ABG Base Excess (-2.0-3.0) mmol/L ABG Hemoglobin (11.7-17.4) g/dL ABG Carboxyhemoglobin (0.5-1.5) % POC ABG HHb (Measured) (0-5) % ABG Methemoglobin (0.0-3.0) % ABG O2 Capacity (16-24) mL/dl Hgb O2 Saturation (95.0-98.0) % FiO2 % Sodium 139 (132-148) mmol/L Potassium 4.3 (3.6-5.0) mmol/L Chloride 102 (98-107) mmol/L Carbon Dioxide 28 (21-33) mmol/L Anion Gap 13 (10-20) BUN 49 H (7-21) mg/dL Creatinine 3.2 H (0.8-1.5) mg/dl Est GFR ( Amer) 23 Est GFR (Non-Af Amer) 19 POC Glucose (mg/dL) (65-110) mg/dL Random Glucose 137 H (70-110) mg/dL Calcium 8.9 (8.4-10.5) mg/dL Total Bilirubin 0.8 (0.2-1.3) mg/dL AST 31 (17-59) U/L ALT 36 (7-56) U/L Alkaline Phosphatase 142 H (38-126) U/L Troponin I 0.27 H* ng/mL Total Protein 6.6 (5.8-8.3) g/dL Albumin 2.5 L (3.0-4.8) g/dL Globulin 4.1 gm/dL Albumin/Globulin Ratio 0.6 L (1.1-1.8) Complement C3 (88.0-165.0) mg/dL Complement C4 (14.0-44.0) mg/dL 12/04/17 12/04/17 12/04/17 Range/Units 21:50 21:15 16:18 WBC (4.5-11.0) 10^3/ul RBC (3.5-6.1) 10^6/uL Hgb (14.0-18.0) g/dL Hct (42.0-52.0) % MCV (80.0-105.0) fl MCH (25.0-35.0) pg MCHC (31.0-37.0) g/dl RDW (11.5-14.5) % Plt Count (120.0-450.0) 10^3/uL MPV (7.0-11.0) fl Gran % (50.0-68.0) % Lymph % (Auto) (22.0-35.0) % Maries % (Auto) (1.0-6.0) % Eos % (Auto) (1.5-5.0) % Baso % (Auto) (0.0-3.0) % Gran # (1.4-6.5) Lymph # (Auto) (1.2-3.4) Maries # (Auto) (0.1-0.6) Eos # (Auto) (0.0-0.7) Baso # (Auto) (0.0-2.0) K/mm3 Neutrophils % (Manual) (50.0-70.0) % Lymphocytes % (Manual) (22.0-35.0) % Monocytes % (Manual) (1.0-6.0) % Eosinophils % (Manual) (0.0-3.0) % Platelet Evaluation (NORMAL) pCO2 (35-45) mm/Hg pO2 (80-100) mm/Hg HCO3 (21-28) mmol/L ABG pH (7.35-7.45) ABG Total CO2 (22-28) mmol.L ABG O2 Saturation (95-98) % ABG O2 Content (15-23) ML/dl ABG Base Excess (-2.0-3.0) mmol/L ABG Hemoglobin (11.7-17.4) g/dL ABG Carboxyhemoglobin (0.5-1.5) % POC ABG HHb (Measured) (0-5) % ABG Methemoglobin (0.0-3.0) % ABG O2 Capacity (16-24) mL/dl Hgb O2 Saturation (95.0-98.0) % FiO2 % Sodium (132-148) mmol/L Potassium (3.6-5.0) mmol/L Chloride (98-107) mmol/L Carbon Dioxide (21-33) mmol/L Anion Gap (10-20) BUN (7-21) mg/dL Creatinine (0.8-1.5) mg/dl Est GFR ( Amer) Est GFR (Non-Af Amer) POC Glucose (mg/dL) 146 H 154 H (65-110) mg/dL Random Glucose (70-110) mg/dL Calcium (8.4-10.5) mg/dL Total Bilirubin (0.2-1.3) mg/dL AST (17-59) U/L ALT (7-56) U/L Alkaline Phosphatase (38-126) U/L Troponin I 0.29 H* D ng/mL Total Protein (5.8-8.3) g/dL Albumin (3.0-4.8) g/dL Globulin gm/dL Albumin/Globulin Ratio (1.1-1.8) Complement C3 (88.0-165.0) mg/dL Complement C4 (14.0-44.0) mg/dL 03//18 Range/Units 12:30 WBC (4.5-11.0) 10^3/ul RBC (3.5-6.1) 10^6/uL Hgb (14.0-18.0) g/dL Hct (42.0-52.0) % MCV (80.0-105.0) fl MCH (25.0-35.0) pg MCHC (31.0-37.0) g/dl RDW (11.5-14.5) % Plt Count (120.0-450.0) 10^3/uL MPV (7.0-11.0) fl Gran % (50.0-68.0) % Lymph % (Auto) (22.0-35.0) % Maries % (Auto) (1.0-6.0) % Eos % (Auto) (1.5-5.0) % Baso % (Auto) (0.0-3.0) % Gran # (1.4-6.5) Lymph # (Auto) (1.2-3.4) Maries # (Auto) (0.1-0.6) Eos # (Auto) (0.0-0.7) Baso # (Auto) (0.0-2.0) K/mm3 Neutrophils % (Manual) (50.0-70.0) % Lymphocytes % (Manual) (22.0-35.0) % Monocytes % (Manual) (1.0-6.0) % Eosinophils % (Manual) (0.0-3.0) % Platelet Evaluation (NORMAL) pCO2 (35-45) mm/Hg pO2 (80-100) mm/Hg HCO3 (21-28) mmol/L ABG pH (7.35-7.45) ABG Total CO2 (22-28) mmol.L ABG O2 Saturation (95-98) % ABG O2 Content (15-23) ML/dl ABG Base Excess (-2.0-3.0) mmol/L ABG Hemoglobin (11.7-17.4) g/dL ABG Carboxyhemoglobin (0.5-1.5) % POC ABG HHb (Measured) (0-5) % ABG Methemoglobin (0.0-3.0) % ABG O2 Capacity (16-24) mL/dl Hgb O2 Saturation (95.0-98.0) % FiO2 % Sodium (132-148) mmol/L Potassium (3.6-5.0) mmol/L Chloride (98-107) mmol/L Carbon Dioxide (21-33) mmol/L Anion Gap (10-20) BUN (7-21) mg/dL Creatinine (0.8-1.5) mg/dl Est GFR ( Amer) Est GFR (Non-Af Amer) POC Glucose (mg/dL) (65-110) mg/dL Random Glucose (70-110) mg/dL Calcium (8.4-10.5) mg/dL Total Bilirubin (0.2-1.3) mg/dL AST (17-59) U/L ALT (7-56) U/L Alkaline Phosphatase (38-126) U/L Troponin I ng/mL Total Protein (5.8-8.3) g/dL Albumin (3.0-4.8) g/dL Globulin gm/dL Albumin/Globulin Ratio (1.1-1.8) Complement C3 117.0 (88.0-165.0) mg/dL Complement C4 34.4 (14.0-44.0) mg/dL Laboratory Results - last 24 hr 12/04/17 12/04/17 12/04/17 12:30 16:18 21:15 WBC RBC Hgb Hct MCV MCH MCHC RDW Plt Count MPV Gran % Lymph % (Auto) Maries % (Auto) Eos % (Auto) Baso % (Auto) Gran # Lymph # (Auto) Maries # (Auto) Eos # (Auto) Baso # (Auto) Neutrophils % (Manual) Lymphocytes % (Manual) Monocytes % (Manual) Eosinophils % (Manual) Platelet Evaluation pCO2 pO2 HCO3 ABG pH ABG Total CO2 ABG O2 Saturation ABG O2 Content ABG Base Excess ABG Hemoglobin ABG Carboxyhemoglobin POC ABG HHb (Measured) ABG Methemoglobin ABG O2 Capacity Hgb O2 Saturation FiO2 Sodium Potassium Chloride Carbon Dioxide Anion Gap BUN Creatinine Est GFR ( Amer) Est GFR (Non-Af Amer) POC Glucose (mg/dL) 154 H Random Glucose Calcium Total Bilirubin AST ALT Alkaline Phosphatase Troponin I 0.29 H* D Total Protein Albumin Globulin Albumin/Globulin Ratio Complement C3 117.0 Complement C4 34.4 12/04/17 12/05/17 12/05/17 21:50 00:30 06:10 WBC 16.8 H RBC 3.92 Hgb 11.2 L Hct 34.8 L MCV 88.8 MCH 28.6 MCHC 32.2 RDW 14.8 H Plt Count 190 MPV 9.3 Gran % 87.6 H Lymph % (Auto) 4.5 L Maries % (Auto) 6.6 H Eos % (Auto) 1.2 L Baso % (Auto) 0.1 Gran # 14.76 H Lymph # (Auto) 0.8 L Maries # (Auto) 1.1 H Eos # (Auto) 0.2 Baso # (Auto) 0.01 Neutrophils % (Manual) 89 H Lymphocytes % (Manual) 2 L Monocytes % (Manual) 8 H Eosinophils % (Manual) 1 Platelet Evaluation Normal pCO2 pO2 HCO3 ABG pH ABG Total CO2 ABG O2 Saturation ABG O2 Content ABG Base Excess ABG Hemoglobin ABG Carboxyhemoglobin POC ABG HHb (Measured) ABG Methemoglobin ABG O2 Capacity Hgb O2 Saturation FiO2 Sodium Potassium Chloride Carbon Dioxide Anion Gap BUN Creatinine Est GFR ( Amer) Est GFR (Non-Af Amer) POC Glucose (mg/dL) 146 H Random Glucose Calcium Total Bilirubin AST ALT Alkaline Phosphatase Troponin I 0.27 H* Total Protein Albumin Globulin Albumin/Globulin Ratio Complement C3 Complement C4 12/05/17 12/05/17 12/05/17 06:10 07:22 08:30 WBC RBC Hgb Hct MCV MCH MCHC RDW Plt Count MPV Gran % Lymph % (Auto) Maries % (Auto) Eos % (Auto) Baso % (Auto) Gran # Lymph # (Auto) Maries # (Auto) Eos # (Auto) Baso # (Auto) Neutrophils % (Manual) Lymphocytes % (Manual) Monocytes % (Manual) Eosinophils % (Manual) Platelet Evaluation pCO2 38 pO2 55.0 L HCO3 24.1 ABG pH 7.41 ABG Total CO2 25.3 ABG O2 Saturation 92.2 L ABG O2 Content 14.8 L ABG Base Excess -0.4 ABG Hemoglobin 11.7 ABG Carboxyhemoglobin 1.7 H POC ABG HHb (Measured) 7.6 H ABG Methemoglobin 0.9 ABG O2 Capacity 16.1 Hgb O2 Saturation 89.8 L FiO2 40.0 Sodium 139 Potassium 4.3 Chloride 102 Carbon Dioxide 28 Anion Gap 13 BUN 49 H Creatinine 3.2 H Est GFR ( Amer) 23 Est GFR (Non-Af Amer) 19 POC Glucose (mg/dL) 123 H Random Glucose 137 H Calcium 8.9 Total Bilirubin 0.8 AST 31 ALT 36 Alkaline Phosphatase 142 H Troponin I Total Protein 6.6 Albumin 2.5 L Globulin 4.1 Albumin/Globulin Ratio 0.6 L Complement C3 Complement C4 12/05/17 11:49 WBC RBC Hgb Hct MCV MCH MCHC RDW Plt Count MPV Gran % Lymph % (Auto) Maries % (Auto) Eos % (Auto) Baso % (Auto) Gran # Lymph # (Auto) Maries # (Auto) Eos # (Auto) Baso # (Auto) Neutrophils % (Manual) Lymphocytes % (Manual) Monocytes % (Manual) Eosinophils % (Manual) Platelet Evaluation pCO2 pO2 HCO3 ABG pH ABG Total CO2 ABG O2 Saturation ABG O2 Content ABG Base Excess ABG Hemoglobin ABG Carboxyhemoglobin POC ABG HHb (Measured) ABG Methemoglobin ABG O2 Capacity Hgb O2 Saturation FiO2 Sodium Potassium Chloride Carbon Dioxide Anion Gap BUN Creatinine Est GFR ( Amer) Est GFR (Non-Af Amer) POC Glucose (mg/dL) 156 H Random Glucose Calcium Total Bilirubin AST ALT Alkaline Phosphatase Troponin I Total Protein Albumin Globulin Albumin/Globulin Ratio Complement C3 Complement C4 Attending/Attestation - Attestation I have personally seen and examined this patient.: Yes I have fully participated in the care of the patient.: Yes I have reviewed all pertinent clinical information: Yes Notes (Text): 12/05/17 14:25 72 yo male with IE, diagnosed on Echo 11/19/17 and treated with abx, now admitted to ICU with hypoxemic respiratory failure in the setting of severe sepsis due to IE and OM (MRI of right foot done on 12/03/2017), complicated by ROHINI and afib with RVR. Possibility of embolic GN on top of ATN can not be ruled out based on UA. Patient poorly responds to Lasix--in terms of urine output, progressive vascular congestion on CXR and increased fi02 requirement. Awaiting nephro follow up to see if ultrafiltration/conservative fluid management would be indicated presently. BP stable, HR relatively controlled with metoprolol 5 mg IV q6. meropenem and dapto are on board. Echo done-->official results are pending. Discussed with Dr. Whitehead: no need for CTS eval. DVT/GI prophylaxis, low threshold for intubation. High flow 60 L/min, fi02 65% 02sat 93%-->no c02 retention and no significant LV systolic or diastolic dysfunction, no signfiicant MR (prelim report, official report is pending). ccm time 40 min
[2017-12-05] MEDS: Albuterol-Ipratrop 3 mg / 0.5 (3 ml) UD IH SCH ×2 (13:00→20:28)
--- NOTE | 2017-12-05 13:20 | PN ---
DATE: SUBJECTIVE: I saw him in Intensive Care Unit. He is resting comfortably in bed. He looks very well. No complaints of shortness of breath. No abdominal pain. This really happened the other day when he got into pulmonary edema, I believe he was diuresed fairly well in the Intensive Care Unit. Hopefully, he will stay healthy and stay well. He is on Apresoline, aspirin, daptomycin IV, heparin, insulin, Levemir, Lipitor, Lopressor, Merrem IV, Norvasc, Protonix, Thera-Tabs, Tylenol, Ultram and Xopenex. PHYSICAL EXAMINATION VITAL SIGNS: Temperature 98.4, 85 pulse, 113/76 blood pressure, 23 respiratory rate and 98% O2 saturation. HEENT: His head is atraumatic, normocephalic. HEART: Regular rate. LUNGS: Clear to auscultation bilaterally. ABDOMEN: Soft, obese, nontender. EXTREMITIES: No edema. LABORATORY DATA: He has a 16.8 white count, on IV antibiotics; 11.2 hemoglobin; 34.8 hematocrit with 190,000 platelets. He has a 139 sodium; potassium 4.3; BUN 49; creatinine 3.2, was a little bit worse. His GFR is 19, sugar is 123, calcium is 8.9, total bili is 0.8, AST is 31, ALT is 36, alkaline phosphatase 142. His troponins are 0.29 and 0.27, total protein is 6.6. He is being seen by Infectious Disease, Renal. I am going to consult Cardiology, Dr. Whitehead, for the elevated troponins, he is already on the case. I did not realize that and I have not seen a note from him. I will make sure he sees him, he has been consulted and we will check his labs tomorrow. Continue as per Intensive Care Unit. Reagan Mendez DO
--- NOTE | 2017-12-05 14:53 | CP.PCM.PN ---
<Yojana Casillas - Last Filed: 12/05/17 14:48> Subjective - Date & Time of Evaluation Date of Evaluation: 12/05/17 Time of Evaluation: 14:48 - Subjective Subjective: Podiatry Progress note: Dr. Baron 72 y/o male seen and examined at bedside this morning in ICU with attending Dr. Baron, 9 days s/p debridement of right foot diabetic ulceration with sinus tract. Pt verbal and responsive at time of visit. States he is feeling a little better today than he was yesterday, breathing better with the oxygen. Says he feels somewhat weak. Denies F/C/N/V/CP at present. States he still feels a little short of breath. Objective - Vital Signs/Intake and Output Vital Signs (last 24 hours): Temp Pulse Resp BP Pulse Ox 98.4 F 94 H 19 105/55 L 93 L 12/05/17 08:16 12/05/17 14:00 12/05/17 13:30 12/05/17 13:00 12/05/17 13:30 Intake and Output: 12/05/17 12/05/17 06:59 18:59 Intake Total 360 Output Total 550 Balance -190 - Medications Medications: Current Medications Acetaminophen (Tylenol 325mg Tab) 650 mg PO Q6H PRN PRN Reason: Fever >100.4 F Albumin Human (Albumin Human 25% (12.5 Gm/50 Ml)) 12.5 gm IV Q4H [facility] Last Admin: 12/05/17 12:47 Dose: 12.5 gm Albuterol/Ipratropium (Duoneb 3 Mg/0.5 Mg (3 Ml) Ud) 3 ml IH [id number] [facility] Last Admin: 12/05/17 13:00 Dose: 3 ml Aspirin (Aspirin Chewable) 81 mg PO DAILY [facility] Last Admin: 12/05/17 09:19 Dose: 81 mg Atorvastatin Calcium (Lipitor) 10 mg PO DIN [facility] Last Admin: 12/04/17 17:43 Dose: 10 mg Heparin Sodium (Porcine) (Heparin) 5,000 units SC Q8 GERRY PRN Reason: Protocol Last Admin: 12/05/17 13:53 Dose: 5,000 units Hydralazine HCl (Apresoline) 25 mg PO Q4 PRN PRN Reason: Other Hydralazine HCl (Apresoline) 10 mg IVP Q6 PRN PRN Reason: SBP >150 and/or DBP >90 Last Admin: 12/04/17 21:55 Dose: 10 mg Meropenem 500 mg/ Sodium (Chloride) 50 mls @ 100 mls/hr IVPB Q12 GERRY PRN Reason: Protocol Stop: 12/13/17 18:52 Last Admin: 12/05/17 09:39 Dose: 100 mls/hr Daptomycin 690 mg/ Sodium (Chloride) 100 mls @ 200 mls/hr IV QOTHERDAY [facility] Stop: 12/29/17 15:01 Insulin Detemir (Levemir) 42 unit SC HS [facility] Last Admin: 12/04/17 22:06 Dose: 42 unit Insulin Human Regular (Humulin R High) 0 units SC ACHS GERRY PRN Reason: Protocol Last Admin: 12/05/17 12:00 Dose: 2 units Levalbuterol HCl (Xopenex) 0.63 mg IH [id number] [facility] Last Admin: 12/05/17 08:01 Dose: 0.63 mg Levalbuterol HCl (Xopenex) 1.25 mg IH [id number] PRN PRN Reason: Shortness of Breath Metoprolol Tartrate (Lopressor) 5 mg IVP Q6H [facility] Last Admin: 12/05/17 09:27 Dose: 5 mg Multivitamins (Thera Tab) 1 tab PO DAILY [facility] Last Admin: 12/05/17 09:22 Dose: 1 tab Pantoprazole Sodium (Protonix Ec Tab) 40 mg PO 0600 [facility] Last Admin: 12/05/17 05:30 Dose: 40 mg Tramadol HCl (Ultram) 50 mg PO Q8H PRN PRN Reason: Pain, moderate (4-7) Last Admin: 12/03/17 11:02 Dose: 50 mg - Labs Labs: 12/05/17 06:10 12/05/17 06:10 - Constitutional Appears: Well, Non-toxic, No Acute Distress - Extremities Exam Additional comments: RLE focused exam: Vasc: DP and PT non-palpable, temperature gradient is warm to cool from proximal to distal, Cap refill time: < 3 seconds to all digits, moderate non- pitting edema noted to the right forefoot Derm: Two surgical incisions: Sanguinous drainage noted to dressing. #1 longitudinal surgical incision noted to the plantar aspect of the sub metatarsal 2 measuring approximately 4 x .3 cm and #2 surgical incision measuring approximately 2 cm x .3 cm on the dorsum of the foot at the level of the 2nd metatarsal head. Incisions connect forming a tunnel through the forefoot. Wound base is 100% granular with no active drainage , no fluctuance noted, no purulence, no active bleeding, no malodor, no tunneling but tracking present to the plantar surgical incision from the dorsal incision. (+) probe to bone down to both 2nd and 3rd metatarsals. no clinical suspicion of active infection at this time. Neuro: gross and protective sensation diminished Ortho: no pain with palpation to ulceration site, right healed partial ray amputation - Neurological Exam Neurological Exam: Alert, Awake, Oriented x3 - Psychiatric Exam Psychiatric exam: Normal Affect, Normal Mood Assessment and Plan - Assessment and Plan (Free Text) Assessment: 72 y/o male 9 days s/p debridement of right foot diabetic ulceration with sinus tract Plan: Patient seen and evaluated at bedside with attending Dr. Baron Labs and vitals reviewed- afebrile, WBC 16.8 MRI of foot reviewed: possible OM of the 2nd and 3rd metatarsals and proximal phalanges Continue abx as per ID - Daptomycin Surgical site cleaned with saline 1/4" iodoform packing with ABD and DSD to R foot At this time, TMA is clinically indicated due to osteomyelitis of 2nd and 3rd mets and proximal phalanges with (+) probe to bone Will hold off on surgical intervention as patient is not a stable candidate at this time Podiatry to continue to follow patient while in house <Eileen Baron - Last Filed: 12/07/17 15:38> Objective - Vital Signs/Intake and Output Vital Signs (last 24 hours): Temp Pulse Resp BP Pulse Ox 97.6 F 130 H 20 117/69 93 L 12/07/17 04:00 12/07/17 14:22 12/07/17 13:15 12/07/17 14:22 12/07/17 13:15 Intake and Output: 12/07/17 12/07/17 06:59 18:59 Intake Total 700 Output Total 500 Balance 200 - Medications Medications: Current Medications Acetaminophen (Tylenol 325mg Tab) 650 mg PO Q6H PRN PRN Reason: Fever >100.4 F Albuterol/Ipratropium (Duoneb 3 Mg/0.5 Mg (3 Ml) Ud) 3 ml IH [id number] [facility] Last Admin: 12/07/17 14:04 Dose: Not Given Aspirin (Aspirin Chewable) 81 mg PO DAILY [facility] Last Admin: 12/07/17 09:55 Dose: 81 mg Atorvastatin Calcium (Lipitor) 10 mg PO DIN [facility] Last Admin: 12/06/17 18:52 Dose: Not Given Heparin Sodium (Porcine) (Heparin) 5,000 units SC Q8 GERRY PRN Reason: Protocol Last Admin: 12/07/17 14:05 Dose: 5,000 units Hydralazine HCl (Apresoline) 25 mg PO Q4 PRN PRN Reason: Other Hydralazine HCl (Apresoline) 10 mg IVP Q6 PRN PRN Reason: SBP >150 and/or DBP >90 Last Admin: 12/04/17 21:55 Dose: 10 mg Meropenem 500 mg/ Sodium (Chloride) 50 mls @ 100 mls/hr IVPB Q12 GERRY PRN Reason: Protocol Stop: 12/13/17 18:52 Last Admin: 12/07/17 09:41 Dose: 100 mls/hr Daptomycin 690 mg/ Sodium (Chloride) 100 mls @ 200 mls/hr IV QOTHERDAY [facility] Stop: 12/29/17 15:01 Last Admin: 12/06/17 11:57 Dose: 200 mls/hr Insulin Detemir (Levemir) 42 unit SC HS [facility] Last Admin: 12/06/17 21:43 Dose: 42 unit Insulin Human Regular (Humulin R High) 0 units SC ACHS [facility] PRN Reason: Protocol Last Admin: 12/07/17 12:30 Dose: Not Given Levalbuterol HCl (Xopenex) 0.63 mg IH [id number] [facility] Last Admin: 12/05/17 08:01 Dose: 0.63 mg Levalbuterol HCl (Xopenex) 1.25 mg IH [id number] PRN PRN Reason: Shortness of Breath Last Admin: 12/06/17 05:35 Dose: 1.25 mg Linezolid (Zyvox) 600 mg PO BID [facility] PRN Reason: Protocol Stop: 12/15/17 19:16 Last Admin: 03/30/18 10:11 Dose: Not Given Metoprolol Tartrate (Lopressor) 5 mg IVP Q6H [facility] Last Admin: 12/07/17 14:22 Dose: 5 mg Metoprolol Tartrate (Lopressor) 25 mg PO BID [facility] Multivitamins (Thera Tab) 1 tab PO DAILY [facility] Last Admin: 12/07/17 10:06 Dose: Not Given Pantoprazole Sodium (Protonix Ec Tab) 40 mg PO 0600 [facility] Last Admin: 12/07/17 05:21 Dose: 40 mg Sodium Hypochlorite (Dakins Solution 0.5%) 0 ml TOP DAILY [facility] Last Admin: 12/07/17 13:39 Dose: Not Given - Labs Labs: 12/07/17 05:50 12/07/17 05:50 PT 13.0 SECONDS (9.4-12.5) H 12/06/17 05:20 INR 1.13 (0.93-1.08) H 12/06/17 05:20 Attending/Attestation - Attestation I have personally seen and examined this patient.: Yes I have fully participated in the care of the patient.: Yes I have reviewed all pertinent clinical information, including history, physical exam and plan: Yes Notes (Text): 12/07/17 15:37 I have seen and evaluated the patient and formulated the plan of care; chart reviewed and aggrre with resident note
--- NOTE | 2017-12-05 15:38 | CON ---
DATE: 12/05/2017 PULMONARY CONSULTATION REASON FOR CONSULTATION: Shortness of breath. REFERRING PHYSICIAN: Reagan Mendez DO HISTORY OF PRESENT ILLNESS: The patient is a chronically ill 72-year-old male, with past medical history significant for diabetes mellitus, hypertension, obesity, infective endocarditis, diabetic foot ulcerations (right foot), who presented to [facility] - originally on 11/30/2017 - for worsening right foot infection. During the initial workup, the patient was noted to have acute renal insufficiency. The patient did receive considerable intravenous fluids-- for his acute renal insufficiency. Apparently, he was doing well until yesterday--early afternoon--when he was noted to be short of breath. There was also oxygen desaturation noted by the nurses. The patient was subsequently placed on BiPAP and transferred to the medical ICU. I am thus asked to evaluate this case for additional management. I did discuss the case with the ICU nursing staff at length. The patient did present to the medical ICU yesterday with significant shortness of breath. He is much less short of breath this morning. The patient does have an occasional cough with no sputum production. There is no history of chest pain, coughing up of blood, or chest pain - made worse with deep respirations. The patient has had low grade temperatures during his hospital stay. No history of chills or infectious exposure. No history of night sweats, weight loss or appetite change prior to the above events. No history of calf pains. No history of syncope or diaphoresis. No history of recent travel. REVIEW OF SYSTEMS: No history of nausea, vomiting or diarrhea. No acute urinary symptoms. No new neurologic complaints. Rest of the review of systems is negative. ALLERGIES: TO CERTAIN FOODS. SOCIAL HISTORY: Positive tobacco and positive for alcohol usage. FAMILY HISTORY: No inheritable disease states. HOME MEDICATIONS: Include Benadryl, aspirin, Lopressor, Glucophage, Zyvox, Xopenex, Lantus, NovoLog, Ultram, Norvasc, Protonix, Zocor. PHYSICAL EXAMINATION GENERAL: The patient appears comfortable this morning. He is mildly short of breath, but in no acute distress. VITAL SIGNS: Temperature is 98.4, pulse 108, respirations 22, blood pressure 96/41. Oxygen saturation on BiPAP/70% oxygen is 98%. HEENT: Normocephalic, atraumatic. No JVD. CARDIOVASCULAR: Systolic ejection murmur at the lower left sternal border. Questionable S3 gallop. LUNGS: Decreased breath sounds at the bases with crackles. Mild bilateral rhonchi. No wheezing. EXTREMITIES: The right foot is wrapped. There is mild edema in both lower extremities. There is no cyanosis or clubbing. Calves are nontender to palpation. GI: Abdomen is soft, nontender and nondistended. Bowel sounds are positive. SKIN: No acute rash. NEUROLOGIC: Limited at the present time. PERTINENT LABORATORY DATA: Chest x-ray was done yesterday and today. The chest x-ray done yesterday reveals acute pulmonary edema. The film today also shows acute pulmonary edema - may be slightly improved. CBC: White count 16.8, hemoglobin 11.2, hematocrit 34.8, platelets of 190,000. Complete metabolic profile: BUN 41, creatinine 2.7, glucose 158, alkaline phosphatase 167, troponin 0.44, albumin 2.8. Rest of the metabolic profiles within normal limits. Arterial blood gas was also done on 100% oxygen yesterday. Results are pH 7.31, pCO2 of 51, pO2 of 96. IMPRESSION: 1. Acute pulmonary edema. 2. Respiratory insufficiency. 3. Mild bronchospasm. 4. Renal insufficiency. 5. Mild anemia. 6. Repeated infections - right foot. PLAN: Again, I did discuss the case with the ICU nursing staff at length. I have also discussed the case with the patient at length, and reviewed the chart at length. The patient presented originally - on 11/30/2017 - with worsening infection of his right foot. During the initial workup, the patient was noted to have acute renal insufficiency. He did receive considerable intravenous fluid for this condition. The patient was doing well until early yesterday afternoon. Apparently, the patient began to get short of breath. He was also noted to have oxygen desaturation. Rapid response was called. Chest x-ray revealed acute pulmonary edema. The patient was then placed on BiPAP and transferred to the medical ICU. As above, this morning, the patient is much less short of breath. Oxygen saturation on BiPAP is now 98%. Hopefully, we can decrease the FiO2 this morning. I have also reviewed the chest x-ray from this morning. It may be mildly improved, but does not show a significant change. Fluid management will be as per Cardiology and Renal. Input by Renal is noted. Cardiology evaluation with Dr. Whitehead has been ordered. On physical exam, there is mild bronchospasm noted. I will continue with the current nebulizer treatments for now. I have also ordered a repeat chest x-ray for tomorrow - for comparison. The clinical status of the patient is certainly improved today - compared to yesterday. I will discuss the above with the entire ICU team in the next few moments. I will also discuss the above with Dr. Mendez later this morning. Thank you very much for this pulmonary consultation. Baljinder Dejesus MD MTDMarisela
--- NOTE | 2017-12-05 15:45 | PN ---
DATE: 12/05/2017 SUBJECTIVE: The patient is seen and examined at bedside. He is in mild respiratory distress; however, protecting his airways and does not use accessory muscles to breathe. He is on 5 liters nasal cannula O2 with oxygen saturation varies between 89 and 92. Heart rate 120, 122 (irregular irregular). Echocardiogram was just done, preliminary report suggesting normal systolic right and left ventricular function, trace MR, no significant AI. Official report is pending. PHYSICAL EXAMINATION: VITAL SIGNS: Blood pressure fluctuates with the latest 105/50, heart rate 115-120, oxygen saturation as above, respiratory rate 23. ENT: Head and neck atraumatic. LUNGS: Few crackles bilaterally. HEART: Irregular rate and rhythm. S1, S2 distant. ABDOMEN: Soft, nontender, nondistended. 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 SKIN: Moist. PSYCH: The patient is alert and oriented x3. LABORATORY DATA: Sodium 139, potassium 4.3, chloride 102, carbon dioxide 28, BUN 49, creatinine 3.2, glucose 123, total bilirubin 0.8, AST 31, ALT 36. Troponin 0.27 down from 0.29, albumin 2.5. WBC 16.8 down from 19.6, hemoglobin 11.2, platelet count 190. Urine positive for rbc's, bacteria and blood; negative for nitrite and leukocyte esterase. Complements C3 and C4 are within normal limits. Chest x-ray bilateral vascular congestion appears to be worse than yesterday. The patient received 40 mg of Lasix IV today and will receive another 40 mg Lasix now. MEDICATIONS: Tylenol p.r.n., albumin (just ordered 50 mL of hyperoncotic albumin IV every 2 hours), DuoNeb every 6 hours, aspirin, Lipitor, daptomycin, Lasix, heparin subcu, Levemir, regular insulin sliding scale high protocol, metoprolol 5 mg IV every 6 hours, Protonix, Ultram p.r.n. and vancomycin. ASSESSMENT AND PLAN: This is a 72-year-old gentleman with history of infective endocarditis (veg present on current echocardiogram: whether or not looks smaller than on previous echo from 11/19/2017, will be deferred to official report which is coming soon) who presented to intensive care unit yesterday after rapid response called due to hypoxemic respiratory failure due to extensive pulmonary edema. The patient was put on bilevel positive airway pressure and given Lasix with subsequent improvement in respiratory status. Today, the patient is still short of breath and in mild respiratory distress. We will switch from nasal cannula to high-flow (patient does not retain CO2). We will maintain oxygen saturation more than 90%. We will continue with aggressive diuresis. Possibility of embolic glomerulonephritis from infective endocarditis cannot be ruled out and Nephrology service is following the patient as well. The patient also has acute kidney injury on top of chronic kidney disease. As per Nephrology Service's yesterday's note, no need for TELEPHONE TECHNICIAN as of now, but we will re-address the question based on response to Lasix. We will slow down the patient's heart rate with metoprolol if hemodynamics allows. We will hold antihypertensive at present time. We will try to work with hyperoncotic albumin and Lasix to "redistribute" intravascular volume, if BP drops due to diuresis. We will continue with deep venous thrombosis and gastrointestinal prophylaxis. Head of bed elevated >35 degrees. Low threshold for intubation for hypoxemic respiratory failure. We will touch base with Cardiology Service whether or not CTS would be appropriate at this time. We will continue with antibiotics. Foot culture grew methicillin-resistant Staphylococcus aureus. Urine culture positive for Klebsiella pneumonia. The patient is on meropenem and daptomycin. Blood culture negative so far. Addendum: didnt respond to Lasix-->HD catheter placed; patient was dialyzed with removal of 2.5 L ccm time 40 min Romel Blackwell MD [facility]
[2017-12-05 15:56] LABS: URINE BILIRUBIN NEGATIVE (NEGATIVE); URINE BLOOD LARGE (NEGATIVE); URINE GLUCOSE (UA) NEGATIVE (NEGATIVE); URINE LEUKOCYTE ESTERASE TRACE Leu/uL (NEGATIVE); URINE PROTEIN 100 mg/dL (<30 mg/dL); URINE UROBILINOGEN 0.2 E.U./dL (<1 E.U./dL)
[2017-12-05 16:06] LABS: URINE COLOR LIGHT BROWN (YELLOW)
--- NOTE | 2017-12-05 16:06 | CP.PCM.PN ---
Subjective - Date & Time of Evaluation Date of Evaluation: 12/05/17 Time of Evaluation: 16:01 - Subjective Subjective: Nephrology Consultation Note: Assessment: critical acute hypoxic respi failure with fluid overload/CHF pattern/pulm edema Acute Kidney Injury (N17.9) likely due to sepsis, wound infection>>leading to ATN, possible AIN due to Abx/infection DM, HTN (I12.0) active cigar smoker, obesity toe osteomyelitis with sepsis, Mitral valve infective endocarditis Plan renal replacement therapy at this time indicated as pt not responding to lasix. Without fluid removal, likely will require mechanical ventilation soon. Hence, will plan for Isolated UF today and tomorrow. d/w pt, explained risks/benefits, prosc/cons, pt agreed and consented maintain hemodynamics stable.hold ACEI/ARB due to ROHINI. hold norvasc hold Invokanna Monitor Input/Output, daily weights and renal function with basic metabolic panel Dose meds/antibiotics for reduced GFR. Avoid fleets enema/magnesium based laxatives. Avoid nephrotoxins/NSAIDs/ iodinated contrast (unless needed emergently) Glycemic control pt encouraged to stop smoking Further work up/management as per primary team Thanks for allowing me to participate in care of your patient. Will follow patient with you. Please call if any Qs. d/w team Dr Caden Muller Office: [phone] HPI: Pt is a 72 M with hx of diabetes Mellitus (9 years), hypertension (years) , active cigar smoker, obesity and Rt foot infection, recent ROHINI (peaked cr 2.1 ) presented with complaints of Rt foot wound infection. renal consult for ROHINI eval. his cr 1.1 in 2017 and at d/c last hospitalization Denies OTC/herbal meds or NSAIDs No recent iodinated contrast exposure. episodes of low BP noted. ROS: Cardiovascular: No chest pain. Pulmonary: improved shortness of breath Gastrointestinal: denies abdominal pain No nausea. No vomiting. Genitourinary: No pain while urinating. Denies blood in urine. has aquino All other negative except as mentioned in HPI Physical Examination: General Appearance: Comfortable, in no acute respiratory distress, co-operative . obese. ill appearing. on O2 high flow @ 60 L/min Vitals reviewed and noted as below Head; Atraumatic, normocephalic ENT: no ulcers no thrush. Tongue is midline. Oropharynx: no rash or ulcers. EYES: Pupils are equal, round and reactive to light accommodation. Eye muscles and extraocular movement intact. Sclera is anicteric. Neck; supple no lymphadenopathy, no thyromegaly or bruit Lungs: Increased respiratory rate/effort. Breath sounds bilateral rales/crackles Heart: Normal rate. s1s2 normal. No rub or gallop. Extremities: Rt pedal edema. No varicose veins. Rt foot dressed. Neurological: Patient is alert, awake and oriented to person, place and time. No focal deficit. Strength bilateral appropriate and equal Skin: Warm and dry. Normal turgor. chronic psoriasis rash. Palpitation: Normal elasticity for age. some petechail rash on upper arm as well Abdomen: Abdomen is soft. Bowel sounds +. There is no abdominal tenderness, no guarding/rigidity no organomegaly Psych: normal insight and normal affect/mood MSK: no joint tenderness or swelling. Digits and nails normal, no deformity : kidney or bladder not palpable Labs/imaging reviewed. Past medical history, past surgical history, family history, social history, allergy reviewed and noted as below Family hx: no hx of CKD. Rest non-contributory workup: renal SONO: WNL UA large blood Objective - Vital Signs/Intake and Output Vital Signs (last 24 hours): Temp Pulse Resp BP Pulse Ox 98.4 F 96 H 19 119/60 93 L 12/05/17 08:16 12/05/17 14:52 12/05/17 13:30 12/05/17 14:52 12/05/17 13:30 Intake and Output: 12/05/17 12/05/17 06:59 18:59 Intake Total 360 Output Total 550 Balance -190 - Medications Medications: Current Medications Acetaminophen (Tylenol 325mg Tab) 650 mg PO Q6H PRN PRN Reason: Fever >100.4 F Albumin Human (Albumin Human 25% (12.5 Gm/50 Ml)) 12.5 gm IV Q4H [facility] Last Admin: 12/05/17 12:47 Dose: 12.5 gm Albuterol/Ipratropium (Duoneb 3 Mg/0.5 Mg (3 Ml) Ud) 3 ml IH [id number] [facility] Last Admin: 12/05/17 13:00 Dose: 3 ml Aspirin (Aspirin Chewable) 81 mg PO DAILY [facility] Last Admin: 12/05/17 09:19 Dose: 81 mg Atorvastatin Calcium (Lipitor) 10 mg PO DIN [facility] Last Admin: 12/04/17 17:43 Dose: 10 mg Heparin Sodium (Porcine) (Heparin) 5,000 units SC Q8 GERRY PRN Reason: Protocol Last Admin: 12/05/17 13:53 Dose: 5,000 units Hydralazine HCl (Apresoline) 25 mg PO Q4 PRN PRN Reason: Other Hydralazine HCl (Apresoline) 10 mg IVP Q6 PRN PRN Reason: SBP >150 and/or DBP >90 Last Admin: 12/04/17 21:55 Dose: 10 mg Meropenem 500 mg/ Sodium (Chloride) 50 mls @ 100 mls/hr IVPB Q12 GERRY PRN Reason: Protocol Stop: 12/13/17 18:52 Last Admin: 12/05/17 09:39 Dose: 100 mls/hr Daptomycin 690 mg/ Sodium (Chloride) 100 mls @ 200 mls/hr IV QOTHERDAY [facility] Stop: 12/29/17 15:01 Insulin Detemir (Levemir) 42 unit SC HS [facility] Last Admin: 12/04/17 22:06 Dose: 42 unit Insulin Human Regular (Humulin R High) 0 units SC ACHS [facility] PRN Reason: Protocol Last Admin: 12/05/17 12:00 Dose: 2 units Levalbuterol HCl (Xopenex) 0.63 mg IH [id number] [facility] Last Admin: 12/05/17 08:01 Dose: 0.63 mg Levalbuterol HCl (Xopenex) 1.25 mg IH [id number] PRN PRN Reason: Shortness of Breath Metoprolol Tartrate (Lopressor) 5 mg IVP Q6H [facility] Last Admin: 12/05/17 14:52 Dose: 5 mg Multivitamins (Thera Tab) 1 tab PO DAILY [facility] Last Admin: 12/05/17 09:22 Dose: 1 tab Pantoprazole Sodium (Protonix Ec Tab) 40 mg PO 0600 [facility] Last Admin: 12/05/17 05:30 Dose: 40 mg Tramadol HCl (Ultram) 50 mg PO Q8H PRN PRN Reason: Pain, moderate (4-7) Last Admin: 12/03/17 11:02 Dose: 50 mg - Labs Labs: 12/05/17 06:10 12/05/17 06:10
[2017-12-05 16:07] LABS: URINE APPEARANCE TURBID (CLEAR)
[2017-12-05 16:34] LABS: URINE AMORPHOUS SEDIMENT MODERATE; URINE BACTERIA MOD (NEG); URINE RBC TNTC /hpf (0-2)
--- NOTE | 2017-12-05 16:44 | CON ---
DATE: 12/05/2017 CARDIOLOGY CONSULTATION HISTORY OF PRESENT ILLNESS: The patient is a 72-year-old male who presented with hypotension. PAST MEDICAL HISTORY: Includes a history of documented mitral valve endocarditis. Secondary to an infection in his lower extremities from peripheral vascular disease. In addition, the patient suffers from diabetes mellitus. He has a recent surgery in his lower extremity for gangrene as well as an abscess. After IV hydration, the patient's blood pressure returned to normal. No shortness of breath. No chest pain. SOCIAL HISTORY: Former smoker. REVIEW OF SYSTEMS: A 14-point review of systems was reviewed. No cardiac symptoms were elicited at rest. PHYSICAL EXAMINATION: VITAL SIGNS: Blood pressure is 113/76, heart rate is 100. NECK: Negative JVD. LUNGS: No rales noted. HEART: Reveals 2/6 systolic ejection murmur. EXTREMITIES: Bandage in the right lower extremity. LABORATORY DATA: Hemoglobin is 11.2, white count is 16.8. Chemistries, BUN and creatinine is 49 and 3.2 with a glucose of 137. IMPRESSION: 1. Hypotension. 2. Dehydration. 3. Mitral valve endocarditis. 4. Infection and abscess in the right lower extremity. 5. Diabetes mellitus. 6. Peripheral vascular disease. 7. Mitral regurgitation. RECOMMENDATIONS: Given these findings, I agree with continued IV hydration. Continue IV hydration. We will obtain a stat echo today to evaluate the status of the mitral valve. Riccardo Whitehead MD
--- NOTE | 2017-12-05 19:07 | CARD ---
APPROVED REPORT EXAM: Two-dimensional and M-mode echocardiogram with Doppler and color Doppler. INDICATION R/O ENDOCARDITIS/COMPARE TO PREVIOUS STUDY. 2D DIMENSIONS Left Atrium (2D)4.6 (1.6-4.0cm)IVSd1.3 (0.7-1.1cm) LVDd4.7 (3.9-5.9cm)PWd1.6 (0.7-1.1cm) LVDs3.2 (2.5-4.0cm)FS (%) 32.0 % LVEF (%)59.9 (>50%) M-Mode DIMENSIONS Aortic Root3.20 (2.2-3.7cm)Aortic Cusp Exc.1.30 (1.5-2.0cm) Aortic Valve AoV Peak Sqlwkiyl451.0cm/sAoV VTI29.3cmAO Peak GR.17mmHg LVOT Peak Mlocptds794.0cm/sLVOT VTI22.60cmAO Mean GR.9mmHg Mitral Valve MV IJA50ogX/A ratio0.0MVA (PHT)2.56cm2 TDI E/Lateral E'0.0E/Medial E'0.0 Pulmonary Valve PV Peak Gnbbdgfs995.0cm/sPV Peak Grad.5mmHg Tricuspid Valve TR Peak Fqlaesgv176yg/sRAP [id number] Peak Gr.23mmHg [id number] LEFT VENTRICLE The left ventricle is normal size. There is normal left ventricular wall thickness. The left ventricular function is normal. The left ventricular ejection fraction is within the normal range. There is normal LV segmental wall motion. Transmitral Doppler flow pattern is Grade I-abnormal relaxation pattern. RIGHT VENTRICLE The right ventricle is normal size. There is normal right ventricular wall thickness. The right ventricular systolic function is normal. ATRIA The left atrium is mildly dilated. The right atrium size is normal. AORTIC VALVE The aortic valve is moderately to severely calcified. There is no aortic valvular vegetation. MITRAL VALVE The previously noted mobile Echo dense structure involving the posterior Mitral leaflet is still prersnt , however, lesser in size with new Mild to moderate MR Mitral regurgitation is mild to moderate. <Conclusion> The previously noted mobile Echo dense structure ( vegitation) involving the posterior Mitral leaflet is still prersnt , however, lesser in size with new Mild to moderate MR
[2017-12-05 20:19] LABS: HEPATITIS B SURFACE AG Negative (NEGATIVE)
[2017-12-05 20:36] LABS: HEPATITIS C ANTIBODY NEGATIVE (NEGATIVE)
--- NOTE | 2017-12-05 21:52 | PN ---
DATE: 12/05/2017 SUBJECTIVE: Patient is in bed, in no acute distress, nontoxic. PHYSICAL EXAMINATION: VITAL SIGNS: Temperature is 98, blood pressure is 105/50, respiratory rate of 23. HEENT: Unremarkable. NECK: Supple. LUNGS: Have decreased breath sounds bilaterally. HEART: Normal S1 and S2. ABDOMEN: Soft and nontender. LABORATORY DATA: Reveals a white count of 16,800, hemoglobin of 11, platelets of 190. Chemistry reveals a BUN of 30.2. Microbiology is reviewed. Dr. Dejesus's consultation is reviewed and appreciated. ASSESSMENT AND PLAN: This is a 72-year-old male seen earlier today in [facility], bed 5, with sensitive Staphylococcus aureus bacteremia, mitral valve endocarditis, right foot skin and soft tissue infection, methicillin-resistant Staphylococcus aureus with osteomyelitis, diabetes mellitus, hypertension, dyslipidemia, psoriasis, admitted with acute kidney injury. Yesterday, patient developed acute shortness of breath and systemic inflammatory response syndrome and volume overload, acute pulmonary edema, currently on intermittent vancomycin and meropenem. Pending panculture results. Patient also on daptomycin being treated for Staphylococcus aureus bacteremia, mitral valve endocarditis, foot methicillin-resistant staphylococcus aureus osteomyelitis. We will check on repeat cultures and we will make further recommendations. Echo result from today is pending. Dr. Blackwell's note is reviewed. We will follow with you. Jesús Hu MD
[2017-12-05] MEDS: Insulin Detemir 100 units/ml Vial (Levemir) SC SCH (22:36)
[2017-12-06] MEDS: Albumin Human 25% (12.5 gm/50 ml) IV SCH ×2 (01:04→04:50)
[2017-12-06] MEDS: Albuterol-Ipratrop 3 mg / 0.5 (3 ml) UD IH SCH ×4 (02:04→20:30)
[2017-12-06] MEDS: Metoprolol 1 mg/ml Inj IVP SCH ×4 (02:15→21:44)
[2017-12-06 06:29] LABS: BASO # 0.02 K/mm3 (0.0-2.0); BASO % 0.1 % (0.0-3.0); EOS # 0.8 (0.0-0.7); EOS % 3.9 % (1.5-5.0); GRAN # 15.23 (1.4-6.5); HEMOGLOBIN 12.1 g/dL (14.0-18.0); LYMPH # 1.9 (1.2-3.4); LYMPH % 10.2 % (22.0-35.0); MEAN CELL VOLUME 88.6 fl (80.0-105.0); MEAN CORPUSCULAR HEMOGLOBIN 28.7 pg (25.0-35.0); MEAN CORPUSCULAR HGB CONC 32.4 g/dl (31.0-37.0); MEAN PLATELET VOLUME 9.5 fl (7.0-11.0); MONO # 1.1 (0.1-0.6); MONO % 5.8 % (1.0-6.0); RBC 4.22 10^6/uL (3.5-6.1); RED CELL DISTRIBUTION WIDTH 14.9 % (11.5-14.5)
[2017-12-06 07:01] LABS: INR 1.13 (0.93-1.08)
[2017-12-06 07:10] LABS: ALB/GLOB RATIO 0.8 (1.1-1.8); ALBUMIN 3.6 g/dL (3.0-4.8); CALCIUM 9.8 mg/dL (8.4-10.5)
--- NOTE | 2017-12-06 07:39 | RAD ---
HISTORY: follow up COMPARISON: Portable chest 12/05/2017. FINDINGS: LUNGS: Increased opacity seen the mid to superior left lung zone suspicious for alveolitis/ pneumonia. Similar changes in the right perihilar region. PLEURA: Prominent right pleural thickening is again seen related to multiple healed right rib fractures with trace of pleural effusion not excluded. No pneumothorax bilaterally. CARDIOVASCULAR: Cardiac size is stable with pulmonary venous congestion not excluded. OSSEOUS STRUCTURES: Old healed right rib fractures again appreciated. VISUALIZED UPPER ABDOMEN: Normal. OTHER FINDINGS: None. IMPRESSION: Mild CHF pattern is not excluded, however, infiltrate suspected the mid to superior left lung zone in the interval. Trace left pleural effusion not excluded.
[2017-12-06] MEDS: Pantoprazole 40 mg EC Tab PO SCH (07:40)
--- NOTE | 2017-12-06 08:15 | PN ---
DATE: 12/06/2017(630am--720am) PULMONARY NOTE SUBJECTIVE: The patient is moderately short of breath at the present time. He is in no acute distress. He does appear very weak. PHYSICAL EXAMINATION: VITAL SIGNS: Temperature is 98.9, pulse is 107, respiratory rate 24/26, blood pressure 129/95. Oxygen saturation on BiPAP is 94%. HEENT: Normocephalic, atraumatic. NECK: No JVD. CARDIOVASCULAR: Systolic ejection murmur at the lower left sternal border. Questionable S3 gallop. LUNGS: Decreased breath sounds at the bases with crackles. Less rhonchi. No wheezing. EXTREMITIES: The right foot remains wrapped. There is mild edema in both lower extremities. There is no cyanosis or clubbing. Calves are nontender to palpation. GI: Abdomen is soft, nontender and nondistended. Bowel sounds are positive. SKIN: No acute rash. NEUROLOGIC: Exam limited at the present time. PERTINENT LABORATORY DATA: Chest x-ray was done this morning and reviewed. There are significant bilateral pulmonary infiltrates noted. I have also ordered an arterial blood gas-pending. IMPRESSION: 1. Acute pulmonary edema. 2. Respiratory insufficiency. 3. Mild bronchospasm. 4. Renal insufficiency. 5. Mild anemia. 6. Right foot infection. 7. Mitral valve endocarditis. PLAN: The patient appears moderately short of breath this morning. He is in no acute distress. He does appear very weak. I did discuss the case with the night nurse at length. The night nurse stated that the patient is very guarded at this point in time. I did review the chest x-ray as above. There are significant bilateral pulmonary infiltrates noted. The patient was given several doses of Lasix yesterday. He put out approximately 400 mL over the past shift. Inputs by Cardiology and Renal are noted. I do question whether the patient would benefit from daily ultrafiltration, in addition to the diuretics. I would continue with the antibiotic coverage as per Infectious Disease. Input by Dr. Hu is noted. The temperatures have now resolved. There remains a [id number] leukocytosis. The patient remains critically ill at this point in time. I will discuss the above with the entire ICU team in the next few moments. I will discuss the above with Dr. Mendez later this morning. Baljinder Dejesus MD [facility]
--- NOTE | 2017-12-06 08:32 | CT ---
PROCEDURE: CT Chest without contrast HISTORY: lung lesion COMPARISON: Portable Chest radiograph 12/06/2017. TECHNIQUE: Contiguous axial images were obtained through the chest without intravenous contrast enhancement. Sagittal and coronal reconstructions were performed. Radiation dose (DLP): 774.90 mGy-cm. This CT exam was performed using one or more of the following dose reduction techniques: Automated exposure control, adjustment of the mA and/or kV according to patient size, and/or use of iterative reconstruction technique. FINDINGS: LUNGS: Extensive confluent infiltrates identified at the bilateral upper and lower lobes with bilateral basilar dependent atelectasis also identified and effect. Central airways appear clear. MEDIASTINUM: Unremarkable thoracic aorta. No aneurysm. Normal sized heart. Main pulmonary artery unremarkable. There is a least mild pulmonary venous congestion appreciate with pulmonary vascular markings appearing somewhat prominent. Mitral annular calcifications identified as well as trace coronary artery calcification. No definite significant lymphadenopathy. PLEURA: Minimal bilateral pleural effusions are identified. There is no pneumothorax bilaterally. No pericardial effusion. Pleural thickening seen space with multiple old healed right rib fractures at the superior to mid right hemithorax. BONES: Multiple old healed right rib fractures are appreciated with limited deformities of the right 3rd, 4th, 5th, 6th and 7th posterior lateral ribs with associated pleural thickening. UPPER ABDOMEN: Prior cholecystectomy noted. OTHER FINDINGS: None. IMPRESSION: Diffuse bilateral pulmonary infiltrates are identified with minimal bilateral pleural effusions. Underlying CHF pattern appears to be present as well. Multiple old healed right rib fractures with associated pleural thickening greater mid right hemithorax posterior laterally. Incidental prior cholecystectomy.
[2017-12-06 08:39] LABS: ARTERIAL BLOOD GAS HCO3 25.1 mmol/L (21-28); ARTERIAL BLOOD GAS O2 CAPACITY 15.1 mL/dl (16-24); ARTERIAL BLOOD GAS O2 CONTENT 14.3 ML/dl (15-23); ARTERIAL BLOOD GAS O2 SAT 94.4 % (95-98); ARTERIAL BLOOD GAS PCO2 37 mm/Hg (35-45); ARTERIAL BLOOD GAS PH 7.44 (7.35-7.45); ARTERIAL BLOOD GAS TCO2 26.2 mmol.L (22-28)
[2017-12-06] MEDS: Insulin Reg-HIGH-Coverage SC SCH ×4 (08:39→21:42)
[2017-12-06] MEDS: Meropenem 500 MG in Sodium Chloride 0.9% 50 ML IVPB SCH ×2 (09:22→22:18)
[2017-12-06] MEDS ORDERED: Linezolid 600 mg in D5W 300 ml 600 MG/300 ML BAG IVPB SCH (10:30)
--- NOTE | 2017-12-06 12:58 | PN ---
DATE: 12/06/2017 CARDIOLOGY FOLLOWUP SUBJECTIVE: The patient is lethargic in bed. PHYSICAL EXAMINATION VITAL SIGNS: Blood pressure is 123/70, the heart rate is in the 80s. NECK: Negative JVD. LUNGS: Decreased breath sounds bilaterally. HEART: Reveals S1, S2 with a II/ systolic ejection murmur. EXTREMITIES: Bandage in the lower extremities. LABORATORY DATA: White count is up to 19,000, hemoglobin is 12. Chemistries: BUN and creatinine is 59 and 3.2 with a glucose of 129. Repeat echocardiogram reveals vegetation noted, which is smaller with mild mitral regurgitation. CT of the chest reveals multiple infiltrative processes. The patient underwent dialysis, which did not change the infiltrates and effusions. IMPRESSION: 1. Endocarditis. 2. Septic lower extremities. 3. Diabetes mellitus. 4. Mitral regurgitation. 5. Bilateral pneumonia. PLAN: Given these findings, the patient's sepsis is now involving his lungs. Antibiotics will be reevaluated. Riccardo Whitehead MD
--- NOTE | 2017-12-06 13:43 | PN ---
DATE: SUBJECTIVE: The patient is seen and examined at bedside. He appears to be at his baseline with mild respiratory distress, but able to talk and not using accessory muscles. He is on BiPAP 12/5 with FiO2 60% with oxygen saturation 93%. His chest x-ray, look like bilateral pulmonary edema. Question is whether it is fluid overload or progression to ARDS. There is a possibility based on CXR that lung nodules or masses may be present, which might be embolic (if present), provided that IE is in the background. To better evaluate this lesion, we will do the CT scan of the chest. The patient underwent dialysis yesterday with removal of 2.5 liters of fluid with only minimal improvement in his respiratory status. OBJECTIVE VITAL SIGNS: Blood pressure 129/95, respiratory rate 20. FiO2 60% and oxygen saturation 93%. ENT: Head and neck atraumatic. LUNGS: Do have scattered crackles bilaterally. Decreased breath sounds bilaterally. ABDOMEN: Soft, nontender, nondistended. MUSCULOSKELETAL: The patient has osteomyelitis of the right foot. The dialysis catheter in the right femoral position not inflamed, not erythematous. No purulent discharge present. The femoral location for the dialysis catheter was requested by Nephrology Service. SKIN: Moist. PSYCHIATRIC: The patient is alert and oriented, appears to be rather comfortable with only mild respiratory distress. LABORATORY DATA: WBC 19 up from 16.8, hemoglobin 12.1, platelet count 257,000. Sodium 142, potassium 3.7, chloride 102, carbon dioxide 46, BUN 59, creatinine 3.2, glucose 117, AST 47, ALT 33, alkaline phosphatase 177, albumin 3.6. MEDICATIONS: DuoNeb every 6 hours, aspirin, Lipitor, daptomycin, heparin subcutaneous, hydralazine p.r.n., Levemir, meropenem, metoprolol, Protonix, tramadol p.r.n. Chest x-ray showed bilateral vascular congestion, possible lesion versus mass in the right lung. ASSESSMENT AND PLAN: This 72-year-old gentleman with infective endocarditis and osteomyelitis complicated by severe sepsis with multiorgan system failure including hypoxemic respiratory failure, acute kidney injury, atrial fibrillation with rapid ventricular response. We are continuing to manage his fluid status cautiously. I am concerned that his imaging picture represents progression to acute respiratory distress syndrome (No improvement despite HD and 2.5 L fluid removed yesterday, leukocytosis worsened, no significant RV, LV, valvular functional abnormalities , despite presence of veg). CT scan of the chest will be done to rule out a lesion that may be construed as a embolic lesion due to infective endocarditis. The patient is on broad-spectrum antibiotics and ID service is following him as well. Nephrology service is following him as well. The patient will receive another bout of dialysis today, in accordance with conservative fluid strategy as long as blood pressure remains stable. Echocardiogram yesterday showed still present vegetation involving the posterior mitral leaflet. It appeared to be less in size with [id number] MR. The patient has normal ejection fraction of 59% and normal left ventricular segmental wall motion. Right heart also was reported of normal size and normal function. Left atrium mildly dilated and right atrial size is normal. If embolic complications of infected endocarditis is suspected based on CT chest, we will readdress question of Cardiothoracic Surgery consultation with Cardiology service. We will continue to target euvolemia, euglycemia, normothermia and oxygen saturation more than 90%. We will continue with low threshold for intubation. The patient is on metoprolol for heart rate control; at present time, he maintains his blood pressure well. We will continue with GI prophylaxis. We will continue with n.p.o. for now. ccm time 40 min Romel Blackwell MD [facility]
--- NOTE | 2017-12-06 13:46 | CP.CCUPN ---
<Enrique Brand - Last Filed: 12/06/17 13:43> CCU Subjective - Physician Review Subjective (Free Text): Patient seen and examined at bedside. Patient complaining of mild difficulty breathing on BIPAP. Denies chest pain, nausea, vomiting, diarrhea, fever, chills. CCU Objective - Vital Signs / Intake & Output Vital Signs (Last 4 hours): Vital Signs Pulse Resp BP Pulse Ox 12/06/17 13:05 87 12/06/17 11:45 82 21 128/58 L 90 L 12/06/17 11:30 131/60 12/06/17 11:29 79 22 93 L 12/06/17 11:15 131/70 12/06/17 11:14 81 27 H 93 L 12/06/17 11:11 84 28 H 12/06/17 11:10 86 21 12/06/17 11:09 84 27 H 12/06/17 11:08 88 31 H 12/06/17 11:07 85 21 12/06/17 11:06 87 29 H 12/06/17 11:01 85 27 H 124/60 100 12/06/17 11:00 86 25 H 95 12/06/17 10:45 85 22 123/62 90 L 12/06/17 10:30 85 24 126/59 L 96 12/06/17 10:15 82 23 121/53 L 94 L 12/06/17 10:01 81 12/06/17 10:00 83 28 H 121/61 93 L 12/06/17 09:45 80 20 119/49 L 94 L Intake and Output (Last 8hrs): Intake & Output 12/05/17 12/06/17 12/06/17 22:59 06:59 14:59 Intake Total 400 Output Total 3050 Balance -2650 Intake: IV 200 Left Upper arm 200 Oral 200 Output: Urine 550 Urethral (Ibrahim) 550 Other 2500 - Physical Exam Head: Positive for: Atraumatic, Normocephalic Pupils: Positive for: PERRL Extroacular Muscles: Positive for: EOMI Conjunctiva: Positive for: Normal Mouth: Positive for: Moist Mucous Membranes Neck: Positive for: Normal Range of Motion Respiratory/Chest: Positive for: Clear to Auscultation, Rales (Diffuse B/l ). Negative for: Respiratory Distress, Accessory Muscle Use Cardiovascular: Positive for: Regular Rate and Rhythm, Normal S1, S2. Negative for: Murmurs Abdomen: Positive for: Normal Bowel Sounds. Negative for: Tenderness, Distention, Peritoneal Signs Upper Extremity: Positive for: Normal Inspection, Edema. Negative for: Cyanosis Lower Extremity: Positive for: Deformity (Right foot bandaged) Neurological: Positive for: GCS=15, CN II-XII Intact, Speech Normal Skin: Positive for: Warm, Dry, Normal Color. Negative for: Rashes Psychiatric: Positive for: Alert, Oriented x 3, Normal Insight, Normal Concentration - Medications Active Medications: Active Medications Generic Name Dose Route Start Last Admin Trade Name Freq PRN Reason Stop Dose Admin Acetaminophen 650 mg 12/01/17 10:16 Tylenol 325mg Tab PO Q6H PRN Fever >100.4 F Albuterol/Ipratropium 3 ml 12/05/17 14:00 12/06/17 13:00 Duoneb 3 Mg/0.5 Mg (3 Ml) Ud IH 3 ml [id number] GERRY Administration Aspirin 81 mg 12/01/17 10:30 12/06/17 11:56 Aspirin Chewable PO Not Given DAILY GERRY Atorvastatin Calcium 10 mg 12/01/17 17:00 12/05/17 17:21 Lipitor PO 10 mg DIN GERRY Administration Heparin Sodium (Porcine) 5,000 units 12/04/17 22:00 12/06/17 07:40 Heparin SC 5,000 units Q8 GERRY Administration Protocol Hydralazine HCl 25 mg 12/03/17 09:28 Apresoline PO Q4 PRN Other Hydralazine HCl 10 mg 12/04/17 21:43 12/04/17 21:55 Apresoline IVP 10 mg Q6 PRN Administration SBP >150 and/or DBP >90 Meropenem 500 mg/ Sodium 50 mls @ 100 mls/hr 12/04/17 18:51 12/06/17 09:22 Chloride IVPB 12/13/17 18:52 100 mls/hr Q12 GERRY Administration Protocol Daptomycin 690 mg/ Sodium 100 mls @ 200 mls/hr 12/06/17 10:00 12/06/17 11:57 Chloride IV 12/29/17 15:01 200 mls/hr QOTHERDAY GERRY Administration Insulin Detemir 42 unit 12/01/17 22:00 12/05/17 22:36 Levemir SC 42 unit HS GERRY Administration Insulin Human Regular 0 units 12/01/17 11:30 12/06/17 11:59 Humulin R High SC Not Given ACHS GERRY Protocol Levalbuterol HCl 0.63 mg 12/01/17 14:00 12/05/17 08:01 Xopenex IH 0.63 mg [id number] GERRY Administration Levalbuterol HCl 1.25 mg 12/01/17 10:16 12/06/17 05:35 Xopenex IH 1.25 mg [id number] PRN Administration Shortness of Breath Metoprolol Tartrate 5 mg 12/05/17 09:00 12/06/17 08:39 Lopressor IVP 5 mg Q6H GERRY Administration Multivitamins 1 tab 12/02/17 10:00 12/05/17 09:22 Thera Tab PO 1 tab DAILY GERRY Administration Pantoprazole Sodium 40 mg 12/02/17 06:00 12/06/17 07:40 Protonix Ec Tab PO 40 mg 0600 GERRY Administration Sodium Hypochlorite 0 ml 12/06/17 10:00 Dakins Solution 0.5% TOP DAILY GERRY - Patient Studies Lab Studies: Microbiology Studies 12/06/17 06:30 C. difficile Antigen & Toxin A,B (M - Final Stool 12/05/17 00:39 Urine Culture - Final Urine No Growth (<1,000 CFU/ML) 12/05/17 00:30 Blood Culture - Preliminary Blood NO GROWTH AFTER 24 HOURS 12/05/17 00:00 Blood Culture - Preliminary Blood NO GROWTH AFTER 24 HOURS Lab Studies 12/06/17 12/06/17 12/06/17 Range/Units 11:14 08:30 07:33 WBC (4.5-11.0) 10^3/ul RBC (3.5-6.1) 10^6/uL Hgb (14.0-18.0) g/dL Hct (42.0-52.0) % MCV (80.0-105.0) fl MCH (25.0-35.0) pg MCHC (31.0-37.0) g/dl RDW (11.5-14.5) % Plt Count (120.0-450.0) 10^3/uL MPV (7.0-11.0) fl Gran % (50.0-68.0) % Lymph % (Auto) (22.0-35.0) % Bowie % (Auto) (1.0-6.0) % Eos % (Auto) (1.5-5.0) % Baso % (Auto) (0.0-3.0) % Gran # (1.4-6.5) Lymph # (Auto) (1.2-3.4) Bowie # (Auto) (0.1-0.6) Eos # (Auto) (0.0-0.7) Baso # (Auto) (0.0-2.0) K/mm3 PT (9.4-12.5) SECONDS INR (0.93-1.08) pCO2 37 (35-45) mm/Hg pO2 64.0 L (80-100) mm/Hg HCO3 25.1 (21-28) mmol/L ABG pH 7.44 (7.35-7.45) ABG Total CO2 26.2 (22-28) mmol.L ABG O2 Saturation 94.4 L (95-98) % ABG O2 Content 14.3 L (15-23) ML/dl ABG Base Excess 1.0 (-2.0-3.0) mmol/L ABG Hemoglobin 11.0 L (11.7-17.4) g/dL ABG Carboxyhemoglobin 1.5 (0.5-1.5) % POC ABG HHb (Measured) 5.5 H (0-5) % ABG Methemoglobin 0.8 (0.0-3.0) % ABG O2 Capacity 15.1 L (16-24) mL/dl Hgb O2 Saturation 92.2 L (95.0-98.0) % FiO2 60.0 % Sodium (132-148) mmol/L Potassium (3.6-5.0) mmol/L Chloride (98-107) mmol/L Carbon Dioxide (21-33) mmol/L Anion Gap (10-20) BUN (7-21) mg/dL Creatinine (0.8-1.5) mg/dl Est GFR ( Amer) Est GFR (Non-Af Amer) POC Glucose (mg/dL) 133 H 117 H (65-110) mg/dL Random Glucose (70-110) mg/dL Calcium (8.4-10.5) mg/dL Total Bilirubin (0.2-1.3) mg/dL AST (17-59) U/L ALT (7-56) U/L Alkaline Phosphatase (38-126) U/L Total Protein (5.8-8.3) g/dL Albumin (3.0-4.8) g/dL Globulin gm/dL Albumin/Globulin Ratio (1.1-1.8) Urine Color (YELLOW) Urine Appearance (CLEAR) Urine pH (4.7-8.0) Ur Specific [place] (1.005-1.035) Urine Protein (<30 mg/dL) mg/dL Urine Glucose (UA) (NEGATIVE) mg/dL Urine Ketones (NEGATIVE) mg/dL Urine Blood (NEGATIVE) Urine Nitrate (NEGATIVE) Urine Bilirubin (NEGATIVE) Urine Urobilinogen (<1 E.U./dL) E.U./dL Ur Leukocyte Esterase (NEGATIVE) Karolina/uL Urine RBC (0-2) /hpf Urine WBC (0-6) /hpf Ur Epithelial Cells (0-5) /hpf Amorphous Sediment Urine Bacteria (NEG) Urine Eosinophils Hep Bs Antigen (NEGATIVE) Hep Bs Antibody (NEGATIVE) Hepatitis C Antibody (NEGATIVE) 12/06/17 12/06/17 12/06/17 Range/Units 05:40 05:40 05:20 WBC 19.0 H (4.5-11.0) 10^3/ul RBC 4.22 (3.5-6.1) 10^6/uL Hgb 12.1 L (14.0-18.0) g/dL Hct 37.4 L (42.0-52.0) % MCV 88.6 (80.0-105.0) fl MCH 28.7 (25.0-35.0) pg MCHC 32.4 (31.0-37.0) g/dl RDW 14.9 H (11.5-14.5) % Plt Count 257 (120.0-450.0) 10^3/uL MPV 9.5 (7.0-11.0) fl Gran % 80.0 H (50.0-68.0) % Lymph % (Auto) 10.2 L (22.0-35.0) % Bowie % (Auto) 5.8 (1.0-6.0) % Eos % (Auto) 3.9 (1.5-5.0) % Baso % (Auto) 0.1 (0.0-3.0) % Gran # 15.23 H (1.4-6.5) Lymph # (Auto) 1.9 (1.2-3.4) Bowie # (Auto) 1.1 H (0.1-0.6) Eos # (Auto) 0.8 H (0.0-0.7) Baso # (Auto) 0.02 (0.0-2.0) K/mm3 PT 13.0 H (9.4-12.5) SECONDS INR 1.13 H (0.93-1.08) pCO2 (35-45) mm/Hg pO2 (80-100) mm/Hg HCO3 (21-28) mmol/L ABG pH (7.35-7.45) ABG Total CO2 (22-28) mmol.L ABG O2 Saturation (95-98) % ABG O2 Content (15-23) ML/dl ABG Base Excess (-2.0-3.0) mmol/L ABG Hemoglobin (11.7-17.4) g/dL ABG Carboxyhemoglobin (0.5-1.5) % POC ABG HHb (Measured) (0-5) % ABG Methemoglobin (0.0-3.0) % ABG O2 Capacity (16-24) mL/dl Hgb O2 Saturation (95.0-98.0) % FiO2 % Sodium 142 (132-148) mmol/L Potassium 3.7 (3.6-5.0) mmol/L Chloride 102 (98-107) mmol/L Carbon Dioxide 26 (21-33) mmol/L Anion Gap 17 (10-20) BUN 59 H (7-21) mg/dL Creatinine 3.2 H (0.8-1.5) mg/dl Est GFR ( Amer) 23 Est GFR (Non-Af Amer) 19 POC Glucose (mg/dL) (65-110) mg/dL Random Glucose 129 H (70-110) mg/dL Calcium 9.8 (8.4-10.5) mg/dL Total Bilirubin 1.0 (0.2-1.3) mg/dL AST 47 (17-59) U/L ALT 33 (7-56) U/L Alkaline Phosphatase 177 H D (38-126) U/L Total Protein 7.9 (5.8-8.3) g/dL Albumin 3.6 (3.0-4.8) g/dL Globulin 4.3 gm/dL Albumin/Globulin Ratio 0.8 L (1.1-1.8) Urine Color (YELLOW) Urine Appearance (CLEAR) Urine pH (4.7-8.0) Ur Specific [place] (1.005-1.035) Urine Protein (<30 mg/dL) mg/dL Urine Glucose (UA) (NEGATIVE) mg/dL Urine Ketones (NEGATIVE) mg/dL Urine Blood (NEGATIVE) Urine Nitrate (NEGATIVE) Urine Bilirubin (NEGATIVE) Urine Urobilinogen (<1 E.U./dL) E.U./dL Ur Leukocyte Esterase (NEGATIVE) Karolina/uL Urine RBC (0-2) /hpf Urine WBC (0-6) /hpf Ur Epithelial Cells (0-5) /hpf Amorphous Sediment Urine Bacteria (NEG) Urine Eosinophils Hep Bs Antigen (NEGATIVE) Hep Bs Antibody (NEGATIVE) Hepatitis C Antibody (NEGATIVE) 12/05/17 12/05/17 12/05/17 Range/Units 21:53 16:26 15:30 WBC (4.5-11.0) 10^3/ul RBC (3.5-6.1) 10^6/uL Hgb (14.0-18.0) g/dL Hct (42.0-52.0) % MCV (80.0-105.0) fl MCH (25.0-35.0) pg MCHC (31.0-37.0) g/dl RDW (11.5-14.5) % Plt Count (120.0-450.0) 10^3/uL MPV (7.0-11.0) fl Gran % (50.0-68.0) % Lymph % (Auto) (22.0-35.0) % Bowie % (Auto) (1.0-6.0) % Eos % (Auto) (1.5-5.0) % Baso % (Auto) (0.0-3.0) % Gran # (1.4-6.5) Lymph # (Auto) (1.2-3.4) Bowie # (Auto) (0.1-0.6) Eos # (Auto) (0.0-0.7) Baso # (Auto) (0.0-2.0) K/mm3 PT (9.4-12.5) SECONDS INR (0.93-1.08) pCO2 (35-45) mm/Hg pO2 (80-100) mm/Hg HCO3 (21-28) mmol/L ABG pH (7.35-7.45) ABG Total CO2 (22-28) mmol.L ABG O2 Saturation (95-98) % ABG O2 Content (15-23) ML/dl ABG Base Excess (-2.0-3.0) mmol/L ABG Hemoglobin (11.7-17.4) g/dL ABG Carboxyhemoglobin (0.5-1.5) % POC ABG HHb (Measured) (0-5) % ABG Methemoglobin (0.0-3.0) % ABG O2 Capacity (16-24) mL/dl Hgb O2 Saturation (95.0-98.0) % FiO2 % Sodium (132-148) mmol/L Potassium (3.6-5.0) mmol/L Chloride (98-107) mmol/L Carbon Dioxide (21-33) mmol/L Anion Gap (10-20) BUN (7-21) mg/dL Creatinine (0.8-1.5) mg/dl Est GFR ( Amer) Est GFR (Non-Af Amer) POC Glucose (mg/dL) 188 H 102 (65-110) mg/dL Random Glucose (70-110) mg/dL Calcium (8.4-10.5) mg/dL Total Bilirubin (0.2-1.3) mg/dL AST (17-59) U/L ALT (7-56) U/L Alkaline Phosphatase (38-126) U/L Total Protein (5.8-8.3) g/dL Albumin (3.0-4.8) g/dL Globulin gm/dL Albumin/Globulin Ratio (1.1-1.8) Urine Color (YELLOW) Urine Appearance (CLEAR) Urine pH (4.7-8.0) Ur Specific [place] (1.005-1.035) Urine Protein (<30 mg/dL) mg/dL Urine Glucose (UA) (NEGATIVE) mg/dL Urine Ketones (NEGATIVE) mg/dL Urine Blood (NEGATIVE) Urine Nitrate (NEGATIVE) Urine Bilirubin (NEGATIVE) Urine Urobilinogen (<1 E.U./dL) E.U./dL Ur Leukocyte Esterase (NEGATIVE) Karolina/uL Urine RBC (0-2) /hpf Urine WBC (0-6) /hpf Ur Epithelial Cells (0-5) /hpf Amorphous Sediment Urine Bacteria (NEG) Urine Eosinophils Negative Hep Bs Antigen (NEGATIVE) Hep Bs Antibody (NEGATIVE) Hepatitis C Antibody (NEGATIVE) 12/05/17 12/05/17 12/05/17 Range/Units 15:30 07:20 07:20 WBC (4.5-11.0) 10^3/ul RBC (3.5-6.1) 10^6/uL Hgb (14.0-18.0) g/dL Hct (42.0-52.0) % MCV (80.0-105.0) fl MCH (25.0-35.0) pg MCHC (31.0-37.0) g/dl RDW (11.5-14.5) % Plt Count (120.0-450.0) 10^3/uL MPV (7.0-11.0) fl Gran % (50.0-68.0) % Lymph % (Auto) (22.0-35.0) % Bowie % (Auto) (1.0-6.0) % Eos % (Auto) (1.5-5.0) % Baso % (Auto) (0.0-3.0) % Gran # (1.4-6.5) Lymph # (Auto) (1.2-3.4) Bowie # (Auto) (0.1-0.6) Eos # (Auto) (0.0-0.7) Baso # (Auto) (0.0-2.0) K/mm3 PT (9.4-12.5) SECONDS INR (0.93-1.08) pCO2 (35-45) mm/Hg pO2 (80-100) mm/Hg HCO3 (21-28) mmol/L ABG pH (7.35-7.45) ABG Total CO2 (22-28) mmol.L ABG O2 Saturation (95-98) % ABG O2 Content (15-23) ML/dl ABG Base Excess (-2.0-3.0) mmol/L ABG Hemoglobin (11.7-17.4) g/dL ABG Carboxyhemoglobin (0.5-1.5) % POC ABG HHb (Measured) (0-5) % ABG Methemoglobin (0.0-3.0) % ABG O2 Capacity (16-24) mL/dl Hgb O2 Saturation (95.0-98.0) % FiO2 % Sodium (132-148) mmol/L Potassium (3.6-5.0) mmol/L Chloride (98-107) mmol/L Carbon Dioxide (21-33) mmol/L Anion Gap (10-20) BUN (7-21) mg/dL Creatinine (0.8-1.5) mg/dl Est GFR ( Amer) Est GFR (Non-Af Amer) POC Glucose (mg/dL) (65-110) mg/dL Random Glucose (70-110) mg/dL Calcium (8.4-10.5) mg/dL Total Bilirubin (0.2-1.3) mg/dL AST (17-59) U/L ALT (7-56) U/L Alkaline Phosphatase (38-126) U/L Total Protein (5.8-8.3) g/dL Albumin (3.0-4.8) g/dL Globulin gm/dL Albumin/Globulin Ratio (1.1-1.8) Urine Color Light brown (YELLOW) Urine Appearance Turbid (CLEAR) Urine pH 5.0 (4.7-8.0) Ur Specific [place] >= 1.030 (1.005-1.035) Urine Protein 100 H (<30 mg/dL) mg/dL Urine Glucose (UA) Negative (NEGATIVE) mg/dL Urine Ketones Negative (NEGATIVE) mg/dL Urine Blood Large H (NEGATIVE) Urine Nitrate Negative (NEGATIVE) Urine Bilirubin Negative (NEGATIVE) Urine Urobilinogen 0.2 (<1 E.U./dL) E.U./dL Ur Leukocyte Esterase Trace H (NEGATIVE) Karolina/uL Urine RBC Tntc (0-2) /hpf Urine WBC 5 - 10 (0-6) /hpf Ur Epithelial Cells 6 - 8 (0-5) /hpf Amorphous Sediment Moderate Urine Bacteria Mod (NEG) Urine Eosinophils Hep Bs Antigen Negative (NEGATIVE) Hep Bs Antibody Negative (NEGATIVE) Hepatitis C Antibody Negative (NEGATIVE) Laboratory Results - last 24 hr 12/05/17 12/05/17 12/05/17 07:20 07:20 15:30 WBC RBC Hgb Hct MCV MCH MCHC RDW Plt Count MPV Gran % Lymph % (Auto) Bowie % (Auto) Eos % (Auto) Baso % (Auto) Gran # Lymph # (Auto) Bowie # (Auto) Eos # (Auto) Baso # (Auto) PT INR pCO2 pO2 HCO3 ABG pH ABG Total CO2 ABG O2 Saturation ABG O2 Content ABG Base Excess ABG Hemoglobin ABG Carboxyhemoglobin POC ABG HHb (Measured) ABG Methemoglobin ABG O2 Capacity Hgb O2 Saturation FiO2 Sodium Potassium Chloride Carbon Dioxide Anion Gap BUN Creatinine Est GFR ( Amer) Est GFR (Non-Af Amer) POC Glucose (mg/dL) Random Glucose Calcium Total Bilirubin AST ALT Alkaline Phosphatase Total Protein Albumin Globulin Albumin/Globulin Ratio Urine Color Light brown Urine Appearance Turbid Urine pH 5.0 Ur Specific [place] >= 1.030 Urine Protein 100 H Urine Glucose (UA) Negative Urine Ketones Negative Urine Blood Large H Urine Nitrate Negative Urine Bilirubin Negative Urine Urobilinogen 0.2 Ur Leukocyte Esterase Trace H Urine RBC Tntc Urine WBC 5 - 10 Ur Epithelial Cells 6 - 8 Amorphous Sediment Moderate Urine Bacteria Mod Urine Eosinophils Hep Bs Antigen Negative Hep Bs Antibody Negative Hepatitis C Antibody Negative 12/05/17 12/05/17 12/05/17 15:30 16:26 21:53 WBC RBC Hgb Hct MCV MCH MCHC RDW Plt Count MPV Gran % Lymph % (Auto) Bowie % (Auto) Eos % (Auto) Baso % (Auto) Gran # Lymph # (Auto) Bowie # (Auto) Eos # (Auto) Baso # (Auto) PT INR pCO2 pO2 HCO3 ABG pH ABG Total CO2 ABG O2 Saturation ABG O2 Content ABG Base Excess ABG Hemoglobin ABG Carboxyhemoglobin POC ABG HHb (Measured) ABG Methemoglobin ABG O2 Capacity Hgb O2 Saturation FiO2 Sodium Potassium Chloride Carbon Dioxide Anion Gap BUN Creatinine Est GFR ( Amer) Est GFR (Non-Af Amer) POC Glucose (mg/dL) 102 188 H Random Glucose Calcium Total Bilirubin AST ALT Alkaline Phosphatase Total Protein Albumin Globulin Albumin/Globulin Ratio Urine Color Urine Appearance Urine pH Ur Specific [place] Urine Protein Urine Glucose (UA) Urine Ketones Urine Blood Urine Nitrate Urine Bilirubin Urine Urobilinogen Ur Leukocyte Esterase Urine RBC Urine WBC Ur Epithelial Cells Amorphous Sediment Urine Bacteria Urine Eosinophils Negative Hep Bs Antigen Hep Bs Antibody Hepatitis C Antibody 12/06/17 12/06/17 12/06/17 05:20 05:40 05:40 WBC 19.0 H RBC 4.22 Hgb 12.1 L Hct 37.4 L MCV 88.6 MCH 28.7 MCHC 32.4 RDW 14.9 H Plt Count 257 MPV 9.5 Gran % 80.0 H Lymph % (Auto) 10.2 L Bowie % (Auto) 5.8 Eos % (Auto) 3.9 Baso % (Auto) 0.1 Gran # 15.23 H Lymph # (Auto) 1.9 Bowie # (Auto) 1.1 H Eos # (Auto) 0.8 H Baso # (Auto) 0.02 PT 13.0 H INR 1.13 H pCO2 pO2 HCO3 ABG pH ABG Total CO2 ABG O2 Saturation ABG O2 Content ABG Base Excess ABG Hemoglobin ABG Carboxyhemoglobin POC ABG HHb (Measured) ABG Methemoglobin ABG O2 Capacity Hgb O2 Saturation FiO2 Sodium 142 Potassium 3.7 Chloride 102 Carbon Dioxide 26 Anion Gap 17 BUN 59 H Creatinine 3.2 H Est GFR ( Amer) 23 Est GFR (Non-Af Amer) 19 POC Glucose (mg/dL) Random Glucose 129 H Calcium 9.8 Total Bilirubin 1.0 AST 47 ALT 33 Alkaline Phosphatase 177 H D Total Protein 7.9 Albumin 3.6 Globulin 4.3 Albumin/Globulin Ratio 0.8 L Urine Color Urine Appearance Urine pH Ur Specific [place] Urine Protein Urine Glucose (UA) Urine Ketones Urine Blood Urine Nitrate Urine Bilirubin Urine Urobilinogen Ur Leukocyte Esterase Urine RBC Urine WBC Ur Epithelial Cells Amorphous Sediment Urine Bacteria Urine Eosinophils Hep Bs Antigen Hep Bs Antibody Hepatitis C Antibody 12/06/17 12/06/17 12/06/17 07:33 08:30 11:14 WBC RBC Hgb Hct MCV MCH MCHC RDW Plt Count MPV Gran % Lymph % (Auto) Bowie % (Auto) Eos % (Auto) Baso % (Auto) Gran # Lymph # (Auto) Bowie # (Auto) Eos # (Auto) Baso # (Auto) PT INR pCO2 37 pO2 64.0 L HCO3 25.1 ABG pH 7.44 ABG Total CO2 26.2 ABG O2 Saturation 94.4 L ABG O2 Content 14.3 L ABG Base Excess 1.0 ABG Hemoglobin 11.0 L ABG Carboxyhemoglobin 1.5 POC ABG HHb (Measured) 5.5 H ABG Methemoglobin 0.8 ABG O2 Capacity 15.1 L Hgb O2 Saturation 92.2 L FiO2 60.0 Sodium Potassium Chloride Carbon Dioxide Anion Gap BUN Creatinine Est GFR ( Amer) Est GFR (Non-Af Amer) POC Glucose (mg/dL) 117 H 133 H Random Glucose Calcium Total Bilirubin AST ALT Alkaline Phosphatase Total Protein Albumin Globulin Albumin/Globulin Ratio Urine Color Urine Appearance Urine pH Ur Specific [place] Urine Protein Urine Glucose (UA) Urine Ketones Urine Blood Urine Nitrate Urine Bilirubin Urine Urobilinogen Ur Leukocyte Esterase Urine RBC Urine WBC Ur Epithelial Cells Amorphous Sediment Urine Bacteria Urine Eosinophils Hep Bs Antigen Hep Bs Antibody Hepatitis C Antibody Fingerstick Blood Sugar Results: 133 Assessment/Plan - Assessment and Plan (Free Text) Plan: 72 year old male with past medical history of DM, HTN, Obesity, Mitral valve Infective Endocarditis, Osteomyelitis of right foot 2nd and 3rd toe, and ROHINI presents with MODS in the setting of ARDS, acute renal failure, osteomyelitis, and infective endocarditis. Patient has been transitioned to HFNC and will attempt to wean. If patient does not do well after dialysis session, will consider intubation. Patient received CT of chest which demonstrated diffuse b/ l pulmonary infiltrates. Patient will have Linezolid added to medical regimen. Will continue to monitor respiratory and cardiac status closely. Neuro: AAOx3 Cardio: Continue abx as per ID Echo demonstrates improvement in vegetation but new moderate MR Maintain hemodynamic stability Maintain MAP > 65 Continue Lopressor Cardiology consulted Pulm: Maintain O2 sat > 90% HFNC Low threshold for intubation GI: Protonix CCD Nephro: Klebsiella UTI Will continue with Dialysis today Avoid nephrotoxic medications Maintain euvolemia Heme/ID: Continue abx, Linezolid added as per id MRSA osteomyelitis Afebrile, leukocytosis improving ID following Heparin for DVT prophylaxis Cathie, PGY-2 <Romel Costa - Last Filed: 12/06/17 16:11> CCU Objective - Vital Signs / Intake & Output Vital Signs (Last 4 hours): Vital Signs Pulse 12/06/17 13:05 87 - Medications Active Medications: Active Medications Generic Name Dose Route Start Last Admin Trade Name Freq PRN Reason Stop Dose Admin Acetaminophen 650 mg 12/01/17 10:16 Tylenol 325mg Tab PO Q6H PRN Fever >100.4 F Albuterol/Ipratropium 3 ml 12/05/17 14:00 12/06/17 13:00 Duoneb 3 Mg/0.5 Mg (3 Ml) Ud IH 3 ml [id number] GERRY Administration Aspirin 81 mg 12/01/17 10:30 12/06/17 11:56 Aspirin Chewable PO Not Given DAILY GERRY Atorvastatin Calcium 10 mg 12/01/17 17:00 12/05/17 17:21 Lipitor PO 10 mg DIN GERRY Administration Heparin Sodium (Porcine) 5,000 units 12/04/17 22:00 12/06/17 15:00 Heparin SC 5,000 units Q8 GERRY Administration Protocol Hydralazine HCl 25 mg 12/03/17 09:28 Apresoline PO Q4 PRN Other Hydralazine HCl 10 mg 12/04/17 21:43 12/04/17 21:55 Apresoline IVP 10 mg Q6 PRN Administration SBP >150 and/or DBP >90 Meropenem 500 mg/ Sodium 50 mls @ 100 mls/hr 12/04/17 18:51 12/06/17 09:22 Chloride IVPB 12/13/17 18:52 100 mls/hr Q12 GERRY Administration Protocol Daptomycin 690 mg/ Sodium 100 mls @ 200 mls/hr 12/06/17 10:00 12/06/17 11:57 Chloride IV 12/29/17 15:01 200 mls/hr QOTHERDAY GERRY Administration Insulin Detemir 42 unit 12/01/17 22:00 12/05/17 22:36 Levemir SC 42 unit HS GERRY Administration Insulin Human Regular 0 units 12/01/17 11:30 12/06/17 11:59 Humulin R High SC Not Given ACHS GERRY Protocol Levalbuterol HCl 0.63 mg 12/01/17 14:00 12/05/17 08:01 Xopenex IH 0.63 mg [id number] GERRY Administration Levalbuterol HCl 1.25 mg 12/01/17 10:16 12/06/17 05:35 Xopenex IH 1.25 mg [id number] PRN Administration Shortness of Breath Metoprolol Tartrate 5 mg 12/05/17 09:00 12/06/17 08:39 Lopressor IVP 5 mg Q6H GERRY Administration Multivitamins 1 tab 12/02/17 10:00 12/05/17 09:22 Thera Tab PO 1 tab DAILY GERRY Administration Pantoprazole Sodium 40 mg 12/02/17 06:00 12/06/17 07:40 Protonix Ec Tab PO 40 mg 0600 GERRY Administration Sodium Hypochlorite 0 ml 12/06/17 10:00 Dakins Solution 0.5% TOP DAILY GERRY - Patient Studies Lab Studies: Microbiology Studies 12/04/17 23:12 MRSA Culture (Admit) - Final Nose MRSA NOT DETECTED 12/06/17 06:30 C. difficile Antigen & Toxin A,B (M - Final Stool 12/05/17 00:39 Urine Culture - Final Urine No Growth (<1,000 CFU/ML) 12/05/17 00:30 Blood Culture - Preliminary Blood NO GROWTH AFTER 24 HOURS 12/05/17 00:00 Blood Culture - Preliminary Blood NO GROWTH AFTER 24 HOURS Lab Studies 12/06/17 12/06/17 12/06/17 Range/Units 15:58 11:14 08:30 WBC (4.5-11.0) 10^3/ul RBC (3.5-6.1) 10^6/uL Hgb (14.0-18.0) g/dL Hct (42.0-52.0) % MCV (80.0-105.0) fl MCH (25.0-35.0) pg MCHC (31.0-37.0) g/dl RDW (11.5-14.5) % Plt Count (120.0-450.0) 10^3/uL MPV (7.0-11.0) fl Gran % (50.0-68.0) % Lymph % (Auto) (22.0-35.0) % Bowie % (Auto) (1.0-6.0) % Eos % (Auto) (1.5-5.0) % Baso % (Auto) (0.0-3.0) % Gran # (1.4-6.5) Lymph # (Auto) (1.2-3.4) Bowie # (Auto) (0.1-0.6) Eos # (Auto) (0.0-0.7) Baso # (Auto) (0.0-2.0) K/mm3 PT (9.4-12.5) SECONDS INR (0.93-1.08) pCO2 37 (35-45) mm/Hg pO2 64.0 L (80-100) mm/Hg HCO3 25.1 (21-28) mmol/L ABG pH 7.44 (7.35-7.45) ABG Total CO2 26.2 (22-28) mmol.L ABG O2 Saturation 94.4 L (95-98) % ABG O2 Content 14.3 L (15-23) ML/dl ABG Base Excess 1.0 (-2.0-3.0) mmol/L ABG Hemoglobin 11.0 L (11.7-17.4) g/dL ABG Carboxyhemoglobin 1.5 (0.5-1.5) % POC ABG HHb (Measured) 5.5 H (0-5) % ABG Methemoglobin 0.8 (0.0-3.0) % ABG O2 Capacity 15.1 L (16-24) mL/dl Hgb O2 Saturation 92.2 L (95.0-98.0) % FiO2 60.0 % Sodium (132-148) mmol/L Potassium (3.6-5.0) mmol/L Chloride (98-107) mmol/L Carbon Dioxide (21-33) mmol/L Anion Gap (10-20) BUN (7-21) mg/dL Creatinine (0.8-1.5) mg/dl Est GFR ( Amer) Est GFR (Non-Af Amer) POC Glucose (mg/dL) 118 H 133 H (65-110) mg/dL Random Glucose (70-110) mg/dL Calcium (8.4-10.5) mg/dL Total Bilirubin (0.2-1.3) mg/dL AST (17-59) U/L ALT (7-56) U/L Alkaline Phosphatase (38-126) U/L Total Protein (5.8-8.3) g/dL Albumin (3.0-4.8) g/dL Globulin gm/dL Albumin/Globulin Ratio (1.1-1.8) Urine RBC (0-2) /hpf Urine WBC (0-6) /hpf Ur Epithelial Cells (0-5) /hpf Amorphous Sediment Urine Bacteria (NEG) Urine Eosinophils Hep Bs Antigen (NEGATIVE) Hep Bs Antibody (NEGATIVE) Hepatitis C Antibody (NEGATIVE) 12/06/17 12/06/17 12/06/17 Range/Units 07:33 05:40 05:40 WBC 19.0 H (4.5-11.0) 10^3/ul RBC 4.22 (3.5-6.1) 10^6/uL Hgb 12.1 L (14.0-18.0) g/dL Hct 37.4 L (42.0-52.0) % MCV 88.6 (80.0-105.0) fl MCH 28.7 (25.0-35.0) pg MCHC 32.4 (31.0-37.0) g/dl RDW 14.9 H (11.5-14.5) % Plt Count 257 (120.0-450.0) 10^3/uL MPV 9.5 (7.0-11.0) fl Gran % 80.0 H (50.0-68.0) % Lymph % (Auto) 10.2 L (22.0-35.0) % Bowie % (Auto) 5.8 (1.0-6.0) % Eos % (Auto) 3.9 (1.5-5.0) % Baso % (Auto) 0.1 (0.0-3.0) % Gran # 15.23 H (1.4-6.5) Lymph # (Auto) 1.9 (1.2-3.4) Bowie # (Auto) 1.1 H (0.1-0.6) Eos # (Auto) 0.8 H (0.0-0.7) Baso # (Auto) 0.02 (0.0-2.0) K/mm3 PT (9.4-12.5) SECONDS INR (0.93-1.08) pCO2 (35-45) mm/Hg pO2 (80-100) mm/Hg HCO3 (21-28) mmol/L ABG pH (7.35-7.45) ABG Total CO2 (22-28) mmol.L ABG O2 Saturation (95-98) % ABG O2 Content (15-23) ML/dl ABG Base Excess (-2.0-3.0) mmol/L ABG Hemoglobin (11.7-17.4) g/dL ABG Carboxyhemoglobin (0.5-1.5) % POC ABG HHb (Measured) (0-5) % ABG Methemoglobin (0.0-3.0) % ABG O2 Capacity (16-24) mL/dl Hgb O2 Saturation (95.0-98.0) % FiO2 % Sodium 142 (132-148) mmol/L Potassium 3.7 (3.6-5.0) mmol/L Chloride 102 (98-107) mmol/L Carbon Dioxide 26 (21-33) mmol/L Anion Gap 17 (10-20) BUN 59 H (7-21) mg/dL Creatinine 3.2 H (0.8-1.5) mg/dl Est GFR ( Amer) 23 Est GFR (Non-Af Amer) 19 POC Glucose (mg/dL) 117 H (65-110) mg/dL Random Glucose 129 H (70-110) mg/dL Calcium 9.8 (8.4-10.5) mg/dL Total Bilirubin 1.0 (0.2-1.3) mg/dL AST 47 (17-59) U/L ALT 33 (7-56) U/L Alkaline Phosphatase 177 H D (38-126) U/L Total Protein 7.9 (5.8-8.3) g/dL Albumin 3.6 (3.0-4.8) g/dL Globulin 4.3 gm/dL Albumin/Globulin Ratio 0.8 L (1.1-1.8) Urine RBC (0-2) /hpf Urine WBC (0-6) /hpf Ur Epithelial Cells (0-5) /hpf Amorphous Sediment Urine Bacteria (NEG) Urine Eosinophils Hep Bs Antigen (NEGATIVE) Hep Bs Antibody (NEGATIVE) Hepatitis C Antibody (NEGATIVE) 12/06/17 12/05/1718 Range/Units 05:20 21:53 16:26 WBC (4.5-11.0) 10^3/ul RBC (3.5-6.1) 10^6/uL Hgb (14.0-18.0) g/dL Hct (42.0-52.0) % MCV (80.0-105.0) fl MCH (25.0-35.0) pg MCHC (31.0-37.0) g/dl RDW (11.5-14.5) % Plt Count (120.0-450.0) 10^3/uL MPV (7.0-11.0) fl Gran % (50.0-68.0) % Lymph % (Auto) (22.0-35.0) % Bowie % (Auto) (1.0-6.0) % Eos % (Auto) (1.5-5.0) % Baso % (Auto) (0.0-3.0) % Gran # (1.4-6.5) Lymph # (Auto) (1.2-3.4) Bowie # (Auto) (0.1-0.6) Eos # (Auto) (0.0-0.7) Baso # (Auto) (0.0-2.0) K/mm3 PT 13.0 H (9.4-12.5) SECONDS INR 1.13 H (0.93-1.08) pCO2 (35-45) mm/Hg pO2 (80-100) mm/Hg HCO3 (21-28) mmol/L ABG pH (7.35-7.45) ABG Total CO2 (22-28) mmol.L ABG O2 Saturation (95-98) % ABG O2 Content (15-23) ML/dl ABG Base Excess (-2.0-3.0) mmol/L ABG Hemoglobin (11.7-17.4) g/dL ABG Carboxyhemoglobin (0.5-1.5) % POC ABG HHb (Measured) (0-5) % ABG Methemoglobin (0.0-3.0) % ABG O2 Capacity (16-24) mL/dl Hgb O2 Saturation (95.0-98.0) % FiO2 % Sodium (132-148) mmol/L Potassium (3.6-5.0) mmol/L Chloride (98-107) mmol/L Carbon Dioxide (21-33) mmol/L Anion Gap (10-20) BUN (7-21) mg/dL Creatinine (0.8-1.5) mg/dl Est GFR ( Amer) Est GFR (Non-Af Amer) POC Glucose (mg/dL) 188 H 102 (65-110) mg/dL Random Glucose (70-110) mg/dL Calcium (8.4-10.5) mg/dL Total Bilirubin (0.2-1.3) mg/dL AST (17-59) U/L ALT (7-56) U/L Alkaline Phosphatase (38-126) U/L Total Protein (5.8-8.3) g/dL Albumin (3.0-4.8) g/dL Globulin gm/dL Albumin/Globulin Ratio (1.1-1.8) Urine RBC (0-2) /hpf Urine WBC (0-6) /hpf Ur Epithelial Cells (0-5) /hpf Amorphous Sediment Urine Bacteria (NEG) Urine Eosinophils Hep Bs Antigen (NEGATIVE) Hep Bs Antibody (NEGATIVE) Hepatitis C Antibody (NEGATIVE) 12/05/17 12/05/17 12/05/17 Range/Units 15:30 15:30 07:20 WBC (4.5-11.0) 10^3/ul RBC (3.5-6.1) 10^6/uL Hgb (14.0-18.0) g/dL Hct (42.0-52.0) % MCV (80.0-105.0) fl MCH (25.0-35.0) pg MCHC (31.0-37.0) g/dl RDW (11.5-14.5) % Plt Count (120.0-450.0) 10^3/uL MPV (7.0-11.0) fl Gran % (50.0-68.0) % Lymph % (Auto) (22.0-35.0) % Bowie % (Auto) (1.0-6.0) % Eos % (Auto) (1.5-5.0) % Baso % (Auto) (0.0-3.0) % Gran # (1.4-6.5) Lymph # (Auto) (1.2-3.4) Bowie # (Auto) (0.1-0.6) Eos # (Auto) (0.0-0.7) Baso # (Auto) (0.0-2.0) K/mm3 PT (9.4-12.5) SECONDS INR (0.93-1.08) pCO2 (35-45) mm/Hg pO2 (80-100) mm/Hg HCO3 (21-28) mmol/L ABG pH (7.35-7.45) ABG Total CO2 (22-28) mmol.L ABG O2 Saturation (95-98) % ABG O2 Content (15-23) ML/dl ABG Base Excess (-2.0-3.0) mmol/L ABG Hemoglobin (11.7-17.4) g/dL ABG Carboxyhemoglobin (0.5-1.5) % POC ABG HHb (Measured) (0-5) % ABG Methemoglobin (0.0-3.0) % ABG O2 Capacity (16-24) mL/dl Hgb O2 Saturation (95.0-98.0) % FiO2 % Sodium (132-148) mmol/L Potassium (3.6-5.0) mmol/L Chloride (98-107) mmol/L Carbon Dioxide (21-33) mmol/L Anion Gap (10-20) BUN (7-21) mg/dL Creatinine (0.8-1.5) mg/dl Est GFR ( Amer) Est GFR (Non-Af Amer) POC Glucose (mg/dL) (65-110) mg/dL Random Glucose (70-110) mg/dL Calcium (8.4-10.5) mg/dL Total Bilirubin (0.2-1.3) mg/dL AST (17-59) U/L ALT (7-56) U/L Alkaline Phosphatase (38-126) U/L Total Protein (5.8-8.3) g/dL Albumin (3.0-4.8) g/dL Globulin gm/dL Albumin/Globulin Ratio (1.1-1.8) Urine RBC Tntc (0-2) /hpf Urine WBC 5 - 10 (0-6) /hpf Ur Epithelial Cells 6 - 8 (0-5) /hpf Amorphous Sediment Moderate Urine Bacteria Mod (NEG) Urine Eosinophils Negative Hep Bs Antigen (NEGATIVE) Hep Bs Antibody Negative (NEGATIVE) Hepatitis C Antibody (NEGATIVE) 12/05/17 Range/Units 07:20 WBC (4.5-11.0) 10^3/ul RBC (3.5-6.1) 10^6/uL Hgb (14.0-18.0) g/dL Hct (42.0-52.0) % MCV (80.0-105.0) fl MCH (25.0-35.0) pg MCHC (31.0-37.0) g/dl RDW (11.5-14.5) % Plt Count (120.0-450.0) 10^3/uL MPV (7.0-11.0) fl Gran % (50.0-68.0) % Lymph % (Auto) (22.0-35.0) % Bowie % (Auto) (1.0-6.0) % Eos % (Auto) (1.5-5.0) % Baso % (Auto) (0.0-3.0) % Gran # (1.4-6.5) Lymph # (Auto) (1.2-3.4) Bowie # (Auto) (0.1-0.6) Eos # (Auto) (0.0-0.7) Baso # (Auto) (0.0-2.0) K/mm3 PT (9.4-12.5) SECONDS INR (0.93-1.08) pCO2 (35-45) mm/Hg pO2 (80-100) mm/Hg HCO3 (21-28) mmol/L ABG pH (7.35-7.45) ABG Total CO2 (22-28) mmol.L ABG O2 Saturation (95-98) % ABG O2 Content (15-23) ML/dl ABG Base Excess (-2.0-3.0) mmol/L ABG Hemoglobin (11.7-17.4) g/dL ABG Carboxyhemoglobin (0.5-1.5) % POC ABG HHb (Measured) (0-5) % ABG Methemoglobin (0.0-3.0) % ABG O2 Capacity (16-24) mL/dl Hgb O2 Saturation (95.0-98.0) % FiO2 % Sodium (132-148) mmol/L Potassium (3.6-5.0) mmol/L Chloride (98-107) mmol/L Carbon Dioxide (21-33) mmol/L Anion Gap (10-20) BUN (7-21) mg/dL Creatinine (0.8-1.5) mg/dl Est GFR ( Amer) Est GFR (Non-Af Amer) POC Glucose (mg/dL) (65-110) mg/dL Random Glucose (70-110) mg/dL Calcium (8.4-10.5) mg/dL Total Bilirubin (0.2-1.3) mg/dL AST (17-59) U/L ALT (7-56) U/L Alkaline Phosphatase (38-126) U/L Total Protein (5.8-8.3) g/dL Albumin (3.0-4.8) g/dL Globulin gm/dL Albumin/Globulin Ratio (1.1-1.8) Urine RBC (0-2) /hpf Urine WBC (0-6) /hpf Ur Epithelial Cells (0-5) /hpf Amorphous Sediment Urine Bacteria (NEG) Urine Eosinophils Hep Bs Antigen Negative (NEGATIVE) Hep Bs Antibody (NEGATIVE) Hepatitis C Antibody Negative (NEGATIVE) Laboratory Results - last 24 hr 12/05/17 12/05/17 12/05/17 07:20 07:20 15:30 WBC RBC Hgb Hct MCV MCH MCHC RDW Plt Count MPV Gran % Lymph % (Auto) Bowie % (Auto) Eos % (Auto) Baso % (Auto) Gran # Lymph # (Auto) Bowie # (Auto) Eos # (Auto) Baso # (Auto) PT INR pCO2 pO2 HCO3 ABG pH ABG Total CO2 ABG O2 Saturation ABG O2 Content ABG Base Excess ABG Hemoglobin ABG Carboxyhemoglobin POC ABG HHb (Measured) ABG Methemoglobin ABG O2 Capacity Hgb O2 Saturation FiO2 Sodium Potassium Chloride Carbon Dioxide Anion Gap BUN Creatinine Est GFR ( Amer) Est GFR (Non-Af Amer) POC Glucose (mg/dL) Random Glucose Calcium Total Bilirubin AST ALT Alkaline Phosphatase Total Protein Albumin Globulin Albumin/Globulin Ratio Urine RBC Tntc Urine WBC 5 - 10 Ur Epithelial Cells 6 - 8 Amorphous Sediment Moderate Urine Bacteria Mod Urine Eosinophils Hep Bs Antigen Negative Hep Bs Antibody Negative Hepatitis C Antibody Negative 12/05/17 12/05/17 12/05/17 15:30 16:26 21:53 WBC RBC Hgb Hct MCV MCH MCHC RDW Plt Count MPV Gran % Lymph % (Auto) Bowie % (Auto) Eos % (Auto) Baso % (Auto) Gran # Lymph # (Auto) Bowie # (Auto) Eos # (Auto) Baso # (Auto) PT INR pCO2 pO2 HCO3 ABG pH ABG Total CO2 ABG O2 Saturation ABG O2 Content ABG Base Excess ABG Hemoglobin ABG Carboxyhemoglobin POC ABG HHb (Measured) ABG Methemoglobin ABG O2 Capacity Hgb O2 Saturation FiO2 Sodium Potassium Chloride Carbon Dioxide Anion Gap BUN Creatinine Est GFR ( Amer) Est GFR (Non-Af Amer) POC Glucose (mg/dL) 102 188 H Random Glucose Calcium Total Bilirubin AST ALT Alkaline Phosphatase Total Protein Albumin Globulin Albumin/Globulin Ratio Urine RBC Urine WBC Ur Epithelial Cells Amorphous Sediment Urine Bacteria Urine Eosinophils Negative Hep Bs Antigen Hep Bs Antibody Hepatitis C Antibody 12/06/17 12/06/17 12/06/17 05:20 05:40 05:40 WBC 19.0 H RBC 4.22 Hgb 12.1 L Hct 37.4 L MCV 88.6 MCH 28.7 MCHC 32.4 RDW 14.9 H Plt Count 257 MPV 9.5 Gran % 80.0 H Lymph % (Auto) 10.2 L Bowie % (Auto) 5.8 Eos % (Auto) 3.9 Baso % (Auto) 0.1 Gran # 15.23 H Lymph # (Auto) 1.9 Bowie # (Auto) 1.1 H Eos # (Auto) 0.8 H Baso # (Auto) 0.02 PT 13.0 H INR 1.13 H pCO2 pO2 HCO3 ABG pH ABG Total CO2 ABG O2 Saturation ABG O2 Content ABG Base Excess ABG Hemoglobin ABG Carboxyhemoglobin POC ABG HHb (Measured) ABG Methemoglobin ABG O2 Capacity Hgb O2 Saturation FiO2 Sodium 142 Potassium 3.7 Chloride 102 Carbon Dioxide 26 Anion Gap 17 BUN 59 H Creatinine 3.2 H Est GFR ( Amer) 23 Est GFR (Non-Af Amer) 19 POC Glucose (mg/dL) Random Glucose 129 H Calcium 9.8 Total Bilirubin 1.0 AST 47 ALT 33 Alkaline Phosphatase 177 H D Total Protein 7.9 Albumin 3.6 Globulin 4.3 Albumin/Globulin Ratio 0.8 L Urine RBC Urine WBC Ur Epithelial Cells Amorphous Sediment Urine Bacteria Urine Eosinophils Hep Bs Antigen Hep Bs Antibody Hepatitis C Antibody 12/06/17 12/06/17 12/06/17 07:33 08:30 11:14 WBC RBC Hgb Hct MCV MCH MCHC RDW Plt Count MPV Gran % Lymph % (Auto) Bowie % (Auto) Eos % (Auto) Baso % (Auto) Gran # Lymph # (Auto) Bowie # (Auto) Eos # (Auto) Baso # (Auto) PT INR pCO2 37 pO2 64.0 L HCO3 25.1 ABG pH 7.44 ABG Total CO2 26.2 ABG O2 Saturation 94.4 L ABG O2 Content 14.3 L ABG Base Excess 1.0 ABG Hemoglobin 11.0 L ABG Carboxyhemoglobin 1.5 POC ABG HHb (Measured) 5.5 H ABG Methemoglobin 0.8 ABG O2 Capacity 15.1 L Hgb O2 Saturation 92.2 L FiO2 60.0 Sodium Potassium Chloride Carbon Dioxide Anion Gap BUN Creatinine Est GFR ( Amer) Est GFR (Non-Af Amer) POC Glucose (mg/dL) 117 H 133 H Random Glucose Calcium Total Bilirubin AST ALT Alkaline Phosphatase Total Protein Albumin Globulin Albumin/Globulin Ratio Urine RBC Urine WBC Ur Epithelial Cells Amorphous Sediment Urine Bacteria Urine Eosinophils Hep Bs Antigen Hep Bs Antibody Hepatitis C Antibody 12/06/17 15:58 WBC RBC Hgb Hct MCV MCH MCHC RDW Plt Count MPV Gran % Lymph % (Auto) Bowie % (Auto) Eos % (Auto) Baso % (Auto) Gran # Lymph # (Auto) Bowie # (Auto) Eos # (Auto) Baso # (Auto) PT INR pCO2 pO2 HCO3 ABG pH ABG Total CO2 ABG O2 Saturation ABG O2 Content ABG Base Excess ABG Hemoglobin ABG Carboxyhemoglobin POC ABG HHb (Measured) ABG Methemoglobin ABG O2 Capacity Hgb O2 Saturation FiO2 Sodium Potassium Chloride Carbon Dioxide Anion Gap BUN Creatinine Est GFR ( Amer) Est GFR (Non-Af Amer) POC Glucose (mg/dL) 118 H Random Glucose Calcium Total Bilirubin AST ALT Alkaline Phosphatase Total Protein Albumin Globulin Albumin/Globulin Ratio Urine RBC Urine WBC Ur Epithelial Cells Amorphous Sediment Urine Bacteria Urine Eosinophils Hep Bs Antigen Hep Bs Antibody Hepatitis C Antibody Attending/Attestation - Attestation I have personally seen and examined this patient.: Yes I have fully participated in the care of the patient.: Yes I have reviewed all pertinent clinical information: Yes Notes (Text): 12/06/17 16:[address] costa note
--- NOTE | 2017-12-06 14:11 | PN ---
DATE: 12/06/2017 SUBJECTIVE: This is a 72-year-old diabetic male seen in the ICU for followup of a right foot osteomyelitis. The patient had previously been admitted for this acute osteomyelitis. At which time, he was placed on IV antibiotics and was discharged to a subacute. Apparently at the subacute, the white blood count cell started to increase and he was sent back to the [facility]. The patient is seen at bedside. He is alert and oriented. He is, however, restless and I did speak with the supervising airplane pilot and he stated that Mr. Puckett is at very high risk of being intubated within the next 24 hours. PHYSICAL EXAMINATION VITAL SIGNS: Noted, his pulse is 117, his blood pressure is 129/95. MEDICATIONS: Noted on the NOV. He is on daptomycin as per Infectious Disease. LABORATORY DATA: Show that the white blood cell count is continuing to increase, it is at 19 today. The H and H is 12.1 and 37.4 and his platelets are 257,000. His chemistry shows BUN and creatinine of 59 and 3.2. His random glucose was 129. Alkaline phosphatase is at 177. The patient's microbiology showing blood culture, no growth after 24 hours. The urine is growing Klebsiella and foot is growing Staph aureus, and he is on daptomycin as per Infectious Disease as noted above. The patient's chest x-ray also was reviewed. He does have pleural infiltrates with evidence of CHF and the infiltrate was extensive to both upper and lower lobe. His foot is dressed with the dressing clean, dry and intact with a small amount of drainage on the dressing. He does have the sinus tract that goes from the plantar and exits dorsal, this was the original abscess. The sinus tract that was down through the middle of the foot has closed and it is no red, hot, or swollen. It is not fluctuant and I do not think that the sinus tract has any fluid in it and the MRI results are all negative for any abscess in that area. He does, however with probing, have exposed bones of the second and third MPJ joint, the second one being the one that is be infecting one at this time. There is a little reddish serous purulence when you enter the joint with probing, but no large confluence of pus is noted. The foot is not cellulitic. There is some mild edema and it is mildly increased with temperature; however, it is not red, hot, or swollen to indicate an acute infection at this time. ASSESSMENT: Osteomyelitis, diabetic neuropathy, sepsis with multiple organ failure. PLAN: The patient most likely can benefit from a TMA; however, I do not think this is an emergent problem at this time. We will start flushing the wounds with full-strength Dakin's to clean the area. The patient will be seen and followed and he will be seen and monitored daily. Eileen Baron DPM [facility]IL[facility]
--- NOTE | 2017-12-06 14:41 | PN ---
DATE: SUBJECTIVE: I saw him in the Intensive Care Unit. He has a BiPAP on. He is comfortable this morning. He had dialysis the other day. MEDICATIONS: He is on Apresoline, aspirin, Dakin's solution, daptomycin, DuoNeb, heparin, insulin, Levemir, Lopressor, Lipitor, Merrem IV, Protonix, Thera-Tabs, Tylenol, Xopenex, and Zyvox IV; he is on three strong IV antibiotics. PHYSICAL EXAMINATION VITAL SIGNS: He has a temperature of 98.9, he has 83 pulse, 123/70 blood pressure, 16 respiratory rate. HEENT: Head is atraumatic, normocephalic. GENERAL: He is alert, fairly comfortable, just weak. HEART: Regular rate. LUNGS: Decreased breath sounds. ABDOMEN: Soft. Morbidly obese. Nontender. EXTREMITIES: Trace edema. He has a right foot infection, which is bandaged. LABORATORY DATA: He has a 19 white count, still elevated; 12.1 hemoglobin; 37.4 hematocrit; 257 platelets. He has 142 sodium, potassium 3.7, BUN 59, creatinine 3.2 via dialysis yesterday hoping that his kidneys wake up and respond. GFR is 19. Sugar is 117. Calcium is 9.8, AST 47, ALT is 33, alkaline phosphatase 177. He is in trouble. He has got multiple issues. He was seen by multiple doctors. He was seen by Pulmonary, Infectious Disease, Renal, Material Damage Appraiser, Cardiology. We will continue with aggressive treatment and care for his infection. He has got endocarditis, he has got a foot infection, he has got hypertension, high cholesterol and NSTEMI. Continue aggressive treatment and care. We will check his labs tomorrow. I had a long discussion with family today, answered many questions and will call me if anything changes. Reagan Mendez DO
--- NOTE | 2017-12-06 17:58 | CP.PCM.PN ---
Subjective - Date & Time of Evaluation Date of Evaluation: 12/06/17 Time of Evaluation: 17:55 - Subjective Subjective: Assessment: critical acute hypoxic respi failure with fluid overload/CHF pattern/pulm edema Acute Kidney Injury (N17.9) likely due to sepsis, wound infection>>leading to ATN, possible AIN due to Abx/infection DM, HTN (I12.0) active cigar smoker, obesity toe osteomyelitis with sepsis, Mitral valve infective endocarditis Plan renal replacement therapy at this time indicated as pt not responding to lasix. Without fluid removal, likely will require mechanical ventilation soon. getting second session of isolatred UF today lytes reviewed anemia stable abx per id maintain hemodynamics stable. Monitor Input/Output, daily weights and renal function with basic metabolic panel Physical Examination: General Appearance: Comfortable, in no acute respiratory distress, co-operative . obese. ill appearing. Vitals reviewed and noted as below Head; Atraumatic, normocephalic ENT: no ulcers no thrush. Tongue is midline. Oropharynx: no rash or ulcers. EYES: Pupils are equal, round and reactive to light accommodation. Eye muscles and extraocular movement intact. Sclera is anicteric. Neck; supple no lymphadenopathy, no thyromegaly or bruit Lungs: Increased respiratory rate/effort. Breath sounds bilateral rales/crackles Heart: Normal rate. s1s2 normal. No rub or gallop. Extremities: Rt pedal edema. No varicose veins. Rt foot dressed. Neurological: Patient is alert, awake and oriented to person, place and time. No focal deficit. Strength bilateral appropriate and equal Skin: Warm and dry. Normal turgor. chronic psoriasis rash. Palpitation: Normal elasticity for age. some petechail rash on upper arm as well Abdomen: Abdomen is soft. Bowel sounds +. There is no abdominal tenderness, no guarding/rigidity no organomegaly Psych: normal insight and normal affect/mood MSK: no joint tenderness or swelling. Digits and nails normal, no deformity : kidney or bladder not palpable Objective - Vital Signs/Intake and Output Vital Signs (last 24 hours): Temp Pulse Resp BP Pulse Ox 98.9 F 77 21 128/58 L 90 L 12/05/17 16:10 12/06/17 16:56 12/06/17 11:45 12/06/17 11:45 12/06/17 11:45 - Medications Medications: Current Medications Acetaminophen (Tylenol 325mg Tab) 650 mg PO Q6H PRN PRN Reason: Fever >100.4 F Albuterol/Ipratropium (Duoneb 3 Mg/0.5 Mg (3 Ml) Ud) 3 ml IH [id number] [facility] Last Admin: 12/06/17 13:00 Dose: 3 ml Aspirin (Aspirin Chewable) 81 mg PO DAILY [facility] Last Admin: 12/06/17 11:56 Dose: Not Given Atorvastatin Calcium (Lipitor) 10 mg PO DIN [facility] Last Admin: 12/05/17 17:21 Dose: 10 mg Heparin Sodium (Porcine) (Heparin) 5,000 units SC Q8 GERRY PRN Reason: Protocol Last Admin: 12/06/17 15:00 Dose: 5,000 units Hydralazine HCl (Apresoline) 25 mg PO Q4 PRN PRN Reason: Other Hydralazine HCl (Apresoline) 10 mg IVP Q6 PRN PRN Reason: SBP >150 and/or DBP >90 Last Admin: 12/04/17 21:55 Dose: 10 mg Meropenem 500 mg/ Sodium (Chloride) 50 mls @ 100 mls/hr IVPB Q12 GERRY PRN Reason: Protocol Stop: 12/13/17 18:52 Last Admin: 12/06/17 09:22 Dose: 100 mls/hr Daptomycin 690 mg/ Sodium (Chloride) 100 mls @ 200 mls/hr IV QOTHERDAY [facility] Stop: 12/29/17 15:01 Last Admin: 12/06/17 11:57 Dose: 200 mls/hr Insulin Detemir (Levemir) 42 unit SC HS [facility] Last Admin: 12/05/17 22:36 Dose: 42 unit Insulin Human Regular (Humulin R High) 0 units SC ACHS GERRY PRN Reason: Protocol Last Admin: 12/06/17 11:59 Dose: Not Given Levalbuterol HCl (Xopenex) 0.63 mg IH [id number] [facility] Last Admin: 12/05/17 08:01 Dose: 0.63 mg Levalbuterol HCl (Xopenex) 1.25 mg IH [id number] PRN PRN Reason: Shortness of Breath Last Admin: 12/06/17 05:35 Dose: 1.25 mg Metoprolol Tartrate (Lopressor) 5 mg IVP Q6H [facility] Last Admin: 12/06/17 08:39 Dose: 5 mg Multivitamins (Thera Tab) 1 tab PO DAILY [facility] Last Admin: 12/05/17 09:22 Dose: 1 tab Pantoprazole Sodium (Protonix Ec Tab) 40 mg PO 0600 [facility] Last Admin: 12/06/17 07:40 Dose: 40 mg Sodium Hypochlorite (Dakins Solution 0.5%) 0 ml TOP DAILY [facility] - Labs Labs: 12/06/17 05:40 12/06/17 05:40 PT 13.0 SECONDS (9.4-12.5) H 12/06/17 05:20 INR 1.13 (0.93-1.08) H 12/06/17 05:20
[2017-12-06] MEDS: Dakin's Topical 0.5%-Full Strength (480 ml) TOP SCH (18:51)
[2017-12-06] MEDS: Multivitamin Therapeutic Tab PO SCH (18:53)
[2017-12-06] MEDS: Insulin Detemir 100 units/ml Vial (Levemir) SC SCH (21:43)
--- NOTE | 2017-12-07 00:43 | PN ---
DATE: SUBJECTIVE: The patient is seen in bed, in no acute distress, nontoxic. PHYSICAL EXAMINATION: VITAL SIGNS: Temperature is 98, blood pressure is 150/80, respiratory rate of 30, and heart rate of 91. HEENT: Unremarkable. NECK: Supple. LUNGS: Have decreased breath sounds. HEART: Normal S1 and S2. ABDOMEN: Soft, nontender. LABORATORY DATA: Reveals a white count of 19,000, hemoglobin of 12, platelets of 257. Chemistry reveals a BUN of 59, creatinine of 3.2. C-reactive protein is 305. Procalcitonin is 3.18. Urinalysis is noted. Microbiology is noted. Review of orders reveals the patient to be on daptomycin, meropenem. Patient had a CAT scan of the chest which was reviewed, diffuse bilateral pulmonary infiltrates. ASSESSMENT AND PLAN: This is a 72-year-old male, who was seen earlier this morning in the ICU. Patient has sensitive Staphylococcus aureus bacteremia, mitral valve endocarditis, right foot skin and soft tissue infection with methicillin-resistant Staphylococcus aureus, with osteomyelitis, diabetes mellitus, hypertension, dyslipidemia, psoriasis, admitted with acute kidney injury, and now on meropenem and daptomycin, with new health-care associated pneumonia, with sepsis, with volume overload, with acute pulmonary edema. We will add Zyvox to the daptomycin and meropenem. Patient's platelets are within normal range, and patient is not on any selective serotonin reuptake inhibitors. We will follow with you. Jesús Hu MD
[2017-12-07] MEDS: Albuterol-Ipratrop 3 mg / 0.5 (3 ml) UD IH SCH ×4 (01:27→19:48)
[2017-12-07] MEDS: Metoprolol 1 mg/ml Inj IVP SCH ×4 (03:30→21:49)
[2017-12-07 05:04] LABS: ARTERIAL BLOOD GAS HCO3 26.4 mmol/L (21-28); ARTERIAL BLOOD GAS HEMOGLOBIN 10.6 g/dL (11.7-17.4); ARTERIAL BLOOD GAS O2 CAPACITY 14.6 mL/dl (16-24); ARTERIAL BLOOD GAS O2 CONTENT 14.3 ML/dl (15-23); ARTERIAL BLOOD GAS O2 SAT 98.2 % (95-98); ARTERIAL BLOOD GAS PCO2 38 mm/Hg (35-45); ARTERIAL BLOOD GAS PH 7.45 (7.35-7.45); ARTERIAL BLOOD GAS TCO2 27.6 mmol.L (22-28)
[2017-12-07] MEDS: Pantoprazole 40 mg EC Tab PO SCH (05:21)
[2017-12-07 07:20] LABS: BASO # 0.02 K/mm3 (0.0-2.0); BASO % 0.1 % (0.0-3.0); EOS # 1.3 (0.0-0.7); EOS % 8.2 % (1.5-5.0); GRAN # 12.38 (1.4-6.5); HEMOGLOBIN 11.5 g/dL (14.0-18.0); LYMPH # 0.8 (1.2-3.4); LYMPH % 4.8 % (22.0-35.0); MEAN CORPUSCULAR HEMOGLOBIN 28.8 pg (25.0-35.0); MEAN CORPUSCULAR HGB CONC 32.7 g/dl (31.0-37.0); MEAN PLATELET VOLUME 9.5 fl (7.0-11.0); MONO # 1.2 (0.1-0.6); MONO % 7.9 % (1.0-6.0); RED CELL DISTRIBUTION WIDTH 14.7 % (11.5-14.5); WHITE BLOOD COUNT 15.7 10^3/ul (4.5-11.0)
[2017-12-07 08:00] LABS: ALB/GLOB RATIO 0.8 (1.1-1.8); ALBUMIN 3.3 g/dL (3.0-4.8); CALCIUM 9.6 mg/dL (8.4-10.5)
--- NOTE | 2017-12-07 08:13 | PROCN ---
DATE: 12/05/2017 PROCEDURE: Right femoral dialysis catheter placement. INDICATION: Emergent dialysis for fluid overload, hypoxemic respiratory failure and pulmonary edema. DESCRIPTION OF PROCEDURE: After obtaining informed consent, operation area was sterilized. Maximum barrier precautions used. Right femoral vein was cannulated under real-time ultrasound guidance according to modified sterile Seldinger technique. Guidewire removed. Hemostasis achieved. Time-out performed prior to procedure. The patient tolerated procedure well. Romel Blackwell MD
[2017-12-07] MEDS: Insulin Reg-HIGH-Coverage SC SCH ×4 (08:14→22:20)
--- NOTE | 2017-12-07 09:17 | RAD ---
HISTORY: Follow-up. COMPARISON: Multiple serial examinations preceding the most recent study: December 06, 2017. FINDINGS: LUNGS: Interval improvement in pulmonary edema. PLEURA: No significant pleural effusion identified, no pneumothorax apparent. CARDIOVASCULAR: No significant interval change compared to the prior examination(s). OSSEOUS STRUCTURES: Stable contiguous posterior lateral right rib fractures. VISUALIZED UPPER ABDOMEN: Normal. OTHER FINDINGS: None. IMPRESSION: Improving pulmonary edema.
[2017-12-07] MEDS: Meropenem 500 MG in Sodium Chloride 0.9% 50 ML IVPB SCH ×2 (09:41→22:19)
[2017-12-07] MEDS ORDERED: Lidocaine 2% Inj (20ml) ONE (09:41)
[2017-12-07] MEDS ORDERED: Phenylephrine 10 mg/ml Inj ONE (09:42)
[2017-12-07] MEDS ORDERED: Midazolam 2 MG/2 ML VIAL ONE ×2 (09:43→10:50)
[2017-12-07] MEDS ORDERED: Iohexol 350mgl/ml 50 ML ONE (09:43)
[2017-12-07] MEDS ORDERED: Iodixanol 320 MG/ML 200 ML BOTTLE IV ONE (09:43)
[2017-12-07] MEDS ORDERED: Nitroglycerin 50mg in D5W 0 MG/0 ML BOTTLE IV ONE (09:43)
[2017-12-07] MEDS ORDERED: Iodixanol 320 MG/ML 100 ML BOTTLE IV ONE (09:43)
[2017-12-07] MEDS ORDERED: metOLazone 5 MG TAB PO SCH (10:00)
[2017-12-07] MEDS: Multivitamin Therapeutic Tab PO SCH (10:06)
--- NOTE | 2017-12-07 10:36 | PN ---
NOTE SUBJECTIVE: The patient appears more comfortable this morning. He is less short of breath at rest. He does remain very weak appearing. PHYSICAL EXAMINATION VITAL SIGNS: Temperature is 97.6, pulse is 81, respirations 22, blood pressure 172/94. Oxygen saturation on the BiPAP is 99%. HEENT: Normocephalic, atraumatic. NECK: No JVD. CARDIOVASCULAR: Systolic ejection murmur at the lower left sternal border. Questionable S3 gallop. LUNGS: Decreased breath sounds at the bases with crackles. Less rhonchi. No wheezing. EXTREMITIES: The right foot remains wrapped. There is mild edema in both lower extremities. There is no cyanosis or clubbing. Calves are nontender to palpation. GASTROINTESTINAL: Abdomen is soft, nontender and nondistended. Bowel sounds are positive. SKIN: No acute rash. NEUROLOGIC: Limited at the present time. PERTINENT LABORATORY DATA: Chest x-ray was done this morning and reviewed. There remains extensive bilateral pulmonary infiltrates. However, the infiltrates do look less dense in the left lung. CAT scan of the chest was also done and reviewed. There are extensive bilateral pulmonary infiltrates. There are minimal bilateral pleural effusions. There is no significant lymphadenopathy. Arterial blood gas was also done on BiPAP. Results are pH 7.45, pCO2 38, pO2 of 81. IMPRESSION 1. Acute pulmonary edema. 2. Respiratory insufficiency. 3. Mild bronchospasm. 4. Renal insufficiency. 5. Mild anemia. 6. Right foot infection. 7. Mitral valve endocarditis. PLAN: The patient appears more comfortable this morning. He is less short of breath at rest. He remains very weak. He does state to feeling better overall. I did discuss the case with the night nurse at length. The night nurse stated that the patient is doing a little better overall. I did review the chest x-ray as above. There are significant bilateral pulmonary infiltrates, which remain. However, the left-sided infiltrates does look less dense. I have also reviewed the arterial blood gas. The arterial blood gas is improved-- with a decrease in the alveolar-arterial gradient. I would continue with the antibiotic coverage as per Infectious Disease. Temperatures have resolved. The leukocytosis is decreased. I would continue with the Renal and Cardiology evaluations. Inputs are noted. Clinical status of the patient is improved this morning. However, he does remain critical, overall. I will discuss the above with the entire ICU team in the next few moments. I will also discuss the above with the attending physician. Baljinder Dejesus MD [facility]
[2017-12-07] MEDS ORDERED: Eptifibatide 20 mg/10mL Inj IVP ONE (11:28)
[2017-12-07] MEDS ORDERED: Metoprolol 1 mg/ml Inj IVP STA (12:25)
--- NOTE | 2017-12-07 13:23 | CP.CCUPN ---
<Rafael Grewal - Last Filed: 12/07/17 13:23> CCU Subjective - Physician Review Subjective (Free Text): Patient seen and examined bedside. No acute issues overnight. Patient is on BIPAP and says he has slight trouble breathing. Patient denies chest pain, fever , chills, abdominal pain. 12/07/17 13:23 CCU Objective - Vital Signs / Intake & Output Vital Signs (Last 4 hours): Vital Signs Pulse BP 12/07/17 12:33 135 H 142/72 12/07/17 09:55 90 132/59 L 12/07/17 09:43 132/59 L Intake and Output (Last 8hrs): Intake & Output 12/06/17 12/07/17 12/07/17 22:59 06:59 14:59 Intake Total 440 700 Output Total 2700 500 Balance -2260 200 Intake: IV 200 400 Left Upper arm 200 400 Oral 240 300 Output: Urine 200 500 Urethral (Ibrahim) 200 500 Other 2500 Other: # Bowel Movements 1 - Physical Exam Head: Positive for: Atraumatic, Normocephalic Pupils: Positive for: PERRL Extroacular Muscles: Positive for: EOMI Conjunctiva: Positive for: Normal Mouth: Positive for: Moist Mucous Membranes Neck: Positive for: Normal Range of Motion Respiratory/Chest: Positive for: Rales (Diffuse B/l ). Negative for: Respiratory Distress, Accessory Muscle Use Cardiovascular: Positive for: Murmurs, Irregular Rhythm Abdomen: Positive for: Normal Bowel Sounds. Negative for: Tenderness, Distention, Peritoneal Signs Upper Extremity: Positive for: Normal Inspection, Edema. Negative for: Cyanosis Lower Extremity: Positive for: Deformity (Right foot bandaged) Neurological: Positive for: GCS=15, CN II-XII Intact, Speech Normal Skin: Positive for: Warm, Dry, Normal Color. Negative for: Rashes Psychiatric: Positive for: Alert, Oriented x 3, Normal Insight, Normal Concentration - Medications Active Medications: Active Medications Generic Name Dose Route Start Last Admin Trade Name Freq PRN Reason Stop Dose Admin Acetaminophen 650 mg 12/01/17 10:16 Tylenol 325mg Tab PO Q6H PRN Fever >100.4 F Albuterol/Ipratropium 3 ml 12/05/17 14:00 12/07/17 08:00 Duoneb 3 Mg/0.5 Mg (3 Ml) Ud IH 3 ml [id number] GERRY Administration Aspirin 81 mg 12/01/17 10:30 12/07/17 09:55 Aspirin Chewable PO 81 mg DAILY GERRY Administration Atorvastatin Calcium 10 mg 12/01/17 17:00 12/06/17 18:52 Lipitor PO Not Given DIN GERRY Heparin Sodium (Porcine) 5,000 units 12/04/17 22:00 12/07/17 05:21 Heparin SC 5,000 units Q8 GERRY Administration Protocol Hydralazine HCl 25 mg 12/03/17 09:28 Apresoline PO Q4 PRN Other Hydralazine HCl 10 mg 12/04/17 21:43 12/04/17 21:55 Apresoline IVP 10 mg Q6 PRN Administration SBP >150 and/or DBP >90 Meropenem 500 mg/ Sodium 50 mls @ 100 mls/hr 12/04/17 18:51 12/07/17 09:41 Chloride IVPB 12/13/17 18:52 100 mls/hr Q12 GERRY Administration Protocol Daptomycin 690 mg/ Sodium 100 mls @ 200 mls/hr 12/06/17 10:00 12/06/17 11:57 Chloride IV 12/29/17 15:01 200 mls/hr QOTHERDAY GERRY Administration Insulin Detemir 42 unit 12/01/17 22:00 12/06/17 21:43 Levemir SC 42 unit HS GERRY Administration Insulin Human Regular 0 units 12/01/17 11:30 12/07/17 08:14 Humulin R High SC Not Given ACHS [facility] Protocol Levalbuterol HCl 0.63 mg 12/01/17 14:00 12/05/17 08:01 Xopenex IH 0.63 mg [id number] GERRY Administration Levalbuterol HCl 1.25 mg 12/01/17 10:16 12/06/17 05:35 Xopenex IH 1.25 mg [id number] PRN Administration Shortness of Breath Linezolid 600 mg 12/06/17 19:15 12/07/17 10:11 Zyvox PO 12/15/17 19:16 Not Given BID [facility] Protocol Metoprolol Tartrate 5 mg 12/05/17 09:00 12/07/17 09:55 Lopressor IVP 5 mg Q6H GERRY Administration Metoprolol Tartrate 25 mg 12/07/17 18:00 Lopressor PO BID GERRY Multivitamins 1 tab 12/02/17 10:00 12/07/17 10:06 Thera Tab PO Not Given DAILY GERRY Pantoprazole Sodium 40 mg 12/02/17 06:00 12/07/17 05:21 Protonix Ec Tab PO 40 mg 0600 GERRY Administration Sodium Hypochlorite 0 ml 12/06/17 10:00 12/06/17 18:51 Dakins Solution 0.5% TOP Not Given DAILY GERRY - Patient Studies Lab Studies: Microbiology Studies 12/05/17 00:30 Blood Culture - Preliminary Blood NO GROWTH AFTER 48 HOURS 12/05/17 00:00 Blood Culture - Preliminary Blood NO GROWTH AFTER 48 HOURS 12/04/17 23:12 MRSA Culture (Admit) - Final Nose MRSA NOT DETECTED 12/06/17 06:30 C. difficile Antigen & Toxin A,B (M - Final Stool 12/05/17 00:39 Urine Culture - Final Urine No Growth (<1,000 CFU/ML) Lab Studies 12/07/17 12/07/17 12/07/17 Range/Units 12:23 07:53 05:50 WBC (4.5-11.0) 10^3/ul RBC (3.5-6.1) 10^6/uL Hgb (14.0-18.0) g/dL Hct (42.0-52.0) % MCV (80.0-105.0) fl MCH (25.0-35.0) pg MCHC (31.0-37.0) g/dl RDW (11.5-14.5) % Plt Count (120.0-450.0) 10^3/uL MPV (7.0-11.0) fl Gran % (50.0-68.0) % Lymph % (Auto) (22.0-35.0) % [place] % (Auto) (1.0-6.0) % Eos % (Auto) (1.5-5.0) % Baso % (Auto) (0.0-3.0) % Gran # (1.4-6.5) Lymph # (Auto) (1.2-3.4) [place] # (Auto) (0.1-0.6) Eos # (Auto) (0.0-0.7) Baso # (Auto) (0.0-2.0) K/mm3 pCO2 (35-45) mm/Hg pO2 (80-100) mm/Hg HCO3 (21-28) mmol/L ABG pH (7.35-7.45) ABG Total CO2 (22-28) mmol.L ABG O2 Saturation (95-98) % ABG O2 Content (15-23) ML/dl ABG Base Excess (-2.0-3.0) mmol/L ABG Hemoglobin (11.7-17.4) g/dL ABG Carboxyhemoglobin (0.5-1.5) % POC ABG HHb (Measured) (0-5) % ABG Methemoglobin (0.0-3.0) % ABG O2 Capacity (16-24) mL/dl Hgb O2 Saturation (95.0-98.0) % FiO2 % Sodium 144 (132-148) mmol/L Potassium 4.0 (3.6-5.0) mmol/L Chloride 102 (98-107) mmol/L Carbon Dioxide 29 (21-33) mmol/L Anion Gap 17 (10-20) BUN 74 H (7-21) mg/dL Creatinine 3.3 H (0.8-1.5) mg/dl Est GFR ( Amer) 22 Est GFR (Non-Af Amer) 19 POC Glucose (mg/dL) 131 H 97 (65-110) mg/dL Random Glucose 93 (70-110) mg/dL Calcium 9.6 (8.4-10.5) mg/dL Total Bilirubin 0.9 (0.2-1.3) mg/dL AST 58 (17-59) U/L ALT 45 (7-56) U/L Alkaline Phosphatase 245 H D (38-126) U/L C-Reactive Protein (0.0-9.9) mg/L Total Protein 7.5 (5.8-8.3) g/dL Albumin 3.3 (3.0-4.8) g/dL Globulin 4.2 gm/dL Albumin/Globulin Ratio 0.8 L (1.1-1.8) Procalcitonin (0.19-0.49) NG/ML 12/07/17 12/07/1718 Range/Units 05:50 05:01 21:31 WBC 15.7 H (4.5-11.0) 10^3/ul RBC 4.00 (3.5-6.1) 10^6/uL Hgb 11.5 L (14.0-18.0) g/dL Hct 35.2 L (42.0-52.0) % MCV 88.0 (80.0-105.0) fl MCH 28.8 (25.0-35.0) pg MCHC 32.7 (31.0-37.0) g/dl RDW 14.7 H (11.5-14.5) % Plt Count 249 (120.0-450.0) 10^3/uL MPV 9.5 (7.0-11.0) fl Gran % 79.0 H (50.0-68.0) % Lymph % (Auto) 4.8 L (22.0-35.0) % [place] % (Auto) 7.9 H (1.0-6.0) % Eos % (Auto) 8.2 H (1.5-5.0) % Baso % (Auto) 0.1 (0.0-3.0) % Gran # 12.38 H (1.4-6.5) Lymph # (Auto) 0.8 L (1.2-3.4) [place] # (Auto) 1.2 H (0.1-0.6) Eos # (Auto) 1.3 H (0.0-0.7) Baso # (Auto) 0.02 (0.0-2.0) K/mm3 pCO2 38 (35-45) mm/Hg pO2 81.0 (80-100) mm/Hg HCO3 26.4 (21-28) mmol/L ABG pH 7.45 (7.35-7.45) ABG Total CO2 27.6 (22-28) mmol.L ABG O2 Saturation 98.2 H (95-98) % ABG O2 Content 14.3 L (15-23) ML/dl ABG Base Excess 2.3 (-2.0-3.0) mmol/L ABG Hemoglobin 10.6 L (11.7-17.4) g/dL ABG Carboxyhemoglobin 1.8 H (0.5-1.5) % POC ABG HHb (Measured) 1.8 (0-5) % ABG Methemoglobin 0.8 (0.0-3.0) % ABG O2 Capacity 14.6 L (16-24) mL/dl Hgb O2 Saturation 95.6 (95.0-98.0) % FiO2 60.0 % Sodium (132-148) mmol/L Potassium (3.6-5.0) mmol/L Chloride (98-107) mmol/L Carbon Dioxide (21-33) mmol/L Anion Gap (10-20) BUN (7-21) mg/dL Creatinine (0.8-1.5) mg/dl Est GFR ( Amer) Est GFR (Non-Af Amer) POC Glucose (mg/dL) 214 H (65-110) mg/dL Random Glucose (70-110) mg/dL Calcium (8.4-10.5) mg/dL Total Bilirubin (0.2-1.3) mg/dL AST (17-59) U/L ALT (7-56) U/L Alkaline Phosphatase (38-126) U/L C-Reactive Protein (0.0-9.9) mg/L Total Protein (5.8-8.3) g/dL Albumin (3.0-4.8) g/dL Globulin gm/dL Albumin/Globulin Ratio (1.1-1.8) Procalcitonin (0.19-0.49) NG/ML 12/06/17 12/06/17 12/06/17 Range/Units 15:58 10:09 10:09 WBC (4.5-11.0) 10^3/ul RBC (3.5-6.1) 10^6/uL Hgb (14.0-18.0) g/dL Hct (42.0-52.0) % MCV (80.0-105.0) fl MCH (25.0-35.0) pg MCHC (31.0-37.0) g/dl RDW (11.5-14.5) % Plt Count (120.0-450.0) 10^3/uL MPV (7.0-11.0) fl Gran % (50.0-68.0) % Lymph % (Auto) (22.0-35.0) % [place] % (Auto) (1.0-6.0) % Eos % (Auto) (1.5-5.0) % Baso % (Auto) (0.0-3.0) % Gran # (1.4-6.5) Lymph # (Auto) (1.2-3.4) [place] # (Auto) (0.1-0.6) Eos # (Auto) (0.0-0.7) Baso # (Auto) (0.0-2.0) K/mm3 pCO2 (35-45) mm/Hg pO2 (80-100) mm/Hg HCO3 (21-28) mmol/L ABG pH (7.35-7.45) ABG Total CO2 (22-28) mmol.L ABG O2 Saturation (95-98) % ABG O2 Content (15-23) ML/dl ABG Base Excess (-2.0-3.0) mmol/L ABG Hemoglobin (11.7-17.4) g/dL ABG Carboxyhemoglobin (0.5-1.5) % POC ABG HHb (Measured) (0-5) % ABG Methemoglobin (0.0-3.0) % ABG O2 Capacity (16-24) mL/dl Hgb O2 Saturation (95.0-98.0) % FiO2 % Sodium (132-148) mmol/L Potassium (3.6-5.0) mmol/L Chloride (98-107) mmol/L Carbon Dioxide (21-33) mmol/L Anion Gap (10-20) BUN (7-21) mg/dL Creatinine (0.8-1.5) mg/dl Est GFR ( Amer) Est GFR (Non-Af Amer) POC Glucose (mg/dL) 118 H (65-110) mg/dL Random Glucose (70-110) mg/dL Calcium (8.4-10.5) mg/dL Total Bilirubin (0.2-1.3) mg/dL AST (17-59) U/L ALT (7-56) U/L Alkaline Phosphatase (38-126) U/L C-Reactive Protein 305.60 H (0.0-9.9) mg/L Total Protein (5.8-8.3) g/dL Albumin (3.0-4.8) g/dL Globulin gm/dL Albumin/Globulin Ratio (1.1-1.8) Procalcitonin 3.18 H (0.19-0.49) NG/ML Laboratory Results - last 24 hr 12/06/17 12/06/17 12/06/17 10:09 10:09 15:58 WBC RBC Hgb Hct MCV MCH MCHC RDW Plt Count MPV Gran % Lymph % (Auto) [place] % (Auto) Eos % (Auto) Baso % (Auto) Gran # Lymph # (Auto) [place] # (Auto) Eos # (Auto) Baso # (Auto) pCO2 pO2 HCO3 ABG pH ABG Total CO2 ABG O2 Saturation ABG O2 Content ABG Base Excess ABG Hemoglobin ABG Carboxyhemoglobin POC ABG HHb (Measured) ABG Methemoglobin ABG O2 Capacity Hgb O2 Saturation FiO2 Sodium Potassium Chloride Carbon Dioxide Anion Gap BUN Creatinine Est GFR ( Amer) Est GFR (Non-Af Amer) POC Glucose (mg/dL) 118 H Random Glucose Calcium Total Bilirubin AST ALT Alkaline Phosphatase C-Reactive Protein 305.60 H Total Protein Albumin Globulin Albumin/Globulin Ratio Procalcitonin 3.18 H 12/06/17 12/07/17 12/07/17 21:31 05:01 05:50 WBC 15.7 H RBC 4.00 Hgb 11.5 L Hct 35.2 L MCV 88.0 MCH 28.8 MCHC 32.7 RDW 14.7 H Plt Count 249 MPV 9.5 Gran % 79.0 H Lymph % (Auto) 4.8 L [place] % (Auto) 7.9 H Eos % (Auto) 8.2 H Baso % (Auto) 0.1 Gran # 12.38 H Lymph # (Auto) 0.8 L [place] # (Auto) 1.2 H Eos # (Auto) 1.3 H Baso # (Auto) 0.02 pCO2 38 pO2 81.0 HCO3 26.4 ABG pH 7.45 ABG Total CO2 27.6 ABG O2 Saturation 98.2 H ABG O2 Content 14.3 L ABG Base Excess 2.3 ABG Hemoglobin 10.6 L ABG Carboxyhemoglobin 1.8 H POC ABG HHb (Measured) 1.8 ABG Methemoglobin 0.8 ABG O2 Capacity 14.6 L Hgb O2 Saturation 95.6 FiO2 60.0 Sodium Potassium Chloride Carbon Dioxide Anion Gap BUN Creatinine Est GFR ( Amer) Est GFR (Non-Af Amer) POC Glucose (mg/dL) 214 H Random Glucose Calcium Total Bilirubin AST ALT Alkaline Phosphatase C-Reactive Protein Total Protein Albumin Globulin Albumin/Globulin Ratio Procalcitonin 12/07/17 12/07/17 12/07/17 05:50 07:53 12:23 WBC RBC Hgb Hct MCV MCH MCHC RDW Plt Count MPV Gran % Lymph % (Auto) [place] % (Auto) Eos % (Auto) Baso % (Auto) Gran # Lymph # (Auto) [place] # (Auto) Eos # (Auto) Baso # (Auto) pCO2 pO2 HCO3 ABG pH ABG Total CO2 ABG O2 Saturation ABG O2 Content ABG Base Excess ABG Hemoglobin ABG Carboxyhemoglobin POC ABG HHb (Measured) ABG Methemoglobin ABG O2 Capacity Hgb O2 Saturation FiO2 Sodium 144 Potassium 4.0 Chloride 102 Carbon Dioxide 29 Anion Gap 17 BUN 74 H Creatinine 3.3 H Est GFR ( Amer) 22 Est GFR (Non-Af Amer) 19 POC Glucose (mg/dL) 97 131 H Random Glucose 93 Calcium 9.6 Total Bilirubin 0.9 AST 58 ALT 45 Alkaline Phosphatase 245 H D C-Reactive Protein Total Protein 7.5 Albumin 3.3 Globulin 4.2 Albumin/Globulin Ratio 0.8 L Procalcitonin Fingerstick Blood Sugar Results: 97 Review of Systems - Cardiovascular Cardiovascular: absent: Chest Pain at Rest, Diaphoresis - Respiratory Respiratory: absent: Cough, Dyspnea - Gastrointestinal Gastrointestinal: absent: Change in Bowel Habits - Neurological Neurological: absent: Vertigo Assessment/Plan - Assessment and Plan (Free Text) Assessment: 72 year old male with past medical history of DM, HTN, Obesity, Mitral valve Infective Endocarditis, Osteomyelitis of right foot 2nd and 3rd toe, and ROHINI presents with MODS in the setting of ARDS, acute renal failure, osteomyelitis, and infective endocarditis. Patient has been transitioned to HFNC and will attempt to wean. Will continue to monitor respiratory and cardiac status closely. Patient went to cath for LVEDP which was 12. Plan: Neuro: AAOx3 Cardio: Afib Continue abx as per ID Echo demonstrated improvement in vegetation but new moderate MR Maintain hemodynamic stability Maintain MAP > 65 Continue Lopressor Cardiology consulted Pulm: ARDS Maintain O2 sat > 90% BIPAP 12/8 60% FIO2 Low threshold for intubation chest xray GI: Protonix CCD Nephro: Klebsiella UTI Dilaysis if needed Avoid nephrotoxic medications Maintain euvolemia Heme/ID: Continue abx MRSA osteomyelitis Afebrile, leukocytosis improving ID following Heparin for DVT prophylaxis <Romel Blackwell - Last Filed: 12/11/17 11:18> CCU Objective - Vital Signs / Intake & Output Intake and Output (Last 8hrs): Intake & Output 12/10/17 12/11/17 12/11/17 22:59 06:59 14:59 Intake Total 1010 1120 Output Total 1850 50 Balance -840 1070 Intake: IV 570 680 Right Femoral 120 180 Right Forearm 350 400 Tube Feeding 440 240 Other 200 Output: Urine 50 50 Urethral (Ibrahim) 50 50 Other 1800 - Medications Active Medications: Active Medications Generic Name Dose Route Start Last Admin Trade Name Freq PRN Reason Stop Dose Admin Acetaminophen 650 mg 12/01/17 10:16 Tylenol 325mg Tab PO Q6H PRN Fever >100.4 F Albuterol/Ipratropium 3 ml 12/05/17 14:00 12/11/17 09:42 Duoneb 3 Mg/0.5 Mg (3 Ml) Ud IH 3 ml [id number] GERRY Administration Aspirin 81 mg 12/01/17 10:30 12/11/17 10:47 Aspirin Chewable PO 81 mg DAILY GERRY Administration Atorvastatin Calcium 10 mg 12/01/17 17:00 12/10/17 16:53 Lipitor PO 10 mg DIN GERRY Administration Heparin Sodium (Porcine) 5,000 units 12/04/17 22:00 12/11/17 06:18 Heparin SC 5,000 units Q8 GERRY Administration Protocol Hydralazine HCl 25 mg 12/03/17 09:28 Apresoline PO Q4 PRN Other Hydralazine HCl 10 mg 12/04/17 21:43 12/04/17 21:55 Apresoline IVP 10 mg Q6 PRN Administration SBP >150 and/or DBP >90 Hydrocortisone Sodium Succinate 50 mg 12/11/17 10:00 12/11/17 10:47 Solu-Cortef IVP 50 mg Q12 GERRY Administration Meropenem 500 mg/ Sodium 50 mls @ 100 mls/hr 12/04/17 18:51 12/11/17 10:38 Chloride IVPB 12/13/17 18:52 100 mls/hr Q12 GERRY Administration Protocol Daptomycin 690 mg/ Sodium 100 mls @ 200 mls/hr 12/06/17 10:00 12/10/17 12:33 Chloride IV 12/29/17 15:01 200 mls/hr QOTHERDAY GERRY Administration Linezolid 600 mg in 300 mls @ 200 mls/hr 12/07/17 22:00 12/11/17 10:49 Zyvox 600mg/300ml D5w IVPB 12/14/17 22:01 200 mls/hr Q12 GERRY Administration Protocol Insulin Detemir 50 unit 12/11/17 08:53 Levemir SC HS GERRY Insulin Human Regular 0 units 12/08/17 16:00 12/11/17 08:44 Humulin R High SC 4 units Q4 GERRY Administration Protocol Levalbuterol HCl 0.63 mg 12/01/17 14:00 12/05/17 08:01 Xopenex IH 0.63 mg [id number] GERRY Administration Levalbuterol HCl 1.25 mg 12/01/17 10:16 12/06/17 05:35 Xopenex IH 1.25 mg [id number] PRN Administration Shortness of Breath Metoprolol Tartrate 5 mg 12/05/17 09:00 12/10/17 09:25 Lopressor IVP Not Given Q6H GERRY Metoprolol Tartrate 25 mg 12/07/17 18:00 Lopressor PO BID GERRY Midazolam HCl 4 mg 12/07/17 16:04 12/07/17 17:44 Versed Inj IVP 4 mg Q4 PRN Administration Agitation Multivitamins 1 tab 12/02/17 10:00 12/11/17 11:04 Thera Tab PO 1 tab DAILY GERRY Administration Pantoprazole Sodium 40 mg 12/08/17 10:00 12/11/17 11:01 Protonix Inj IVP 40 mg DAILY GERRY Administration Sodium Hypochlorite 0 ml 12/06/17 10:00 12/10/17 09:10 Dakins Solution 0.5% TOP Not Given DAILY GERRY - Patient Studies Lab Studies: Microbiology Studies 12/07/17 17:23 Gram Stain - Final Sputum Sputum Culture - Final No growth. Lab Studies 12/11/17 12/11/17 12/11/17 Range/Units 07:39 06:13 06:05 WBC (4.5-11.0) 10^3/ul RBC (3.5-6.1) 10^6/uL Hgb (14.0-18.0) g/dL Hct (42.0-52.0) % MCV (80.0-105.0) fl MCH (25.0-35.0) pg MCHC (31.0-37.0) g/dl RDW (11.5-14.5) % Plt Count (120.0-450.0) 10^3/uL MPV (7.0-11.0) fl pCO2 49 H (35-45) mm/Hg pO2 91.0 (80-100) mm/Hg HCO3 26.4 (21-28) mmol/L ABG pH 7.34 L (7.35-7.45) ABG Total CO2 27.9 (22-28) mmol.L ABG O2 Saturation 97.9 (95-98) % ABG O2 Content 15.8 (15-23) ML/dl ABG Base Excess 0.1 (-2.0-3.0) mmol/L ABG Hemoglobin 11.7 (11.7-17.4) g/dL ABG Carboxyhemoglobin 1.3 (0.5-1.5) % POC ABG HHb (Measured) 2.1 (0-5) % ABG Methemoglobin 0.9 (0.0-3.0) % ABG O2 Capacity 16.1 (16-24) mL/dl Hgb O2 Saturation 95.7 (95.0-98.0) % FiO2 50.0 % Sodium 135 (132-148) mmol/L Potassium 4.8 (3.6-5.0) mmol/L Chloride 100 (98-107) mmol/L Carbon Dioxide 23 (21-33) mmol/L Anion Gap 18 (10-20) BUN 87 H (7-21) mg/dL Creatinine 5.9 H (0.8-1.5) mg/dl Est GFR ( Amer) 11 Est GFR (Non-Af Amer) 9 POC Glucose (mg/dL) 202 H (65-110) mg/dL Random Glucose 232 H (70-110) mg/dL Calcium 8.1 L (8.4-10.5) mg/dL Phosphorus 7.0 H (2.5-4.5) mg/dL Total Bilirubin 0.4 (0.2-1.3) mg/dL AST 45 (17-59) U/L ALT 48 (7-56) U/L Alkaline Phosphatase 197 H (38-126) U/L Total Protein 6.7 (5.8-8.3) g/dL Albumin 2.8 L (3.0-4.8) g/dL Globulin 3.9 gm/dL Albumin/Globulin Ratio 0.7 L (1.1-1.8) 12/11/17 12/11/17 12/10/17 Range/Units 06:05 03:47 23:54 WBC 7.6 D (4.5-11.0) 10^3/ul RBC 3.29 L (3.5-6.1) 10^6/uL Hgb 9.3 L (14.0-18.0) g/dL Hct 29.1 L (42.0-52.0) % MCV 88.4 (80.0-105.0) fl MCH 28.3 (25.0-35.0) pg MCHC 32.0 (31.0-37.0) g/dl RDW 15.2 H (11.5-14.5) % Plt Count 220 (120.0-450.0) 10^3/uL MPV 9.8 (7.0-11.0) fl pCO2 (35-45) mm/Hg pO2 (80-100) mm/Hg HCO3 (21-28) mmol/L ABG pH (7.35-7.45) ABG Total CO2 (22-28) mmol.L ABG O2 Saturation (95-98) % ABG O2 Content (15-23) ML/dl ABG Base Excess (-2.0-3.0) mmol/L ABG Hemoglobin (11.7-17.4) g/dL ABG Carboxyhemoglobin (0.5-1.5) % POC ABG HHb (Measured) (0-5) % ABG Methemoglobin (0.0-3.0) % ABG O2 Capacity (16-24) mL/dl Hgb O2 Saturation (95.0-98.0) % FiO2 % Sodium (132-148) mmol/L Potassium (3.6-5.0) mmol/L Chloride (98-107) mmol/L Carbon Dioxide (21-33) mmol/L Anion Gap (10-20) BUN (7-21) mg/dL Creatinine (0.8-1.5) mg/dl Est GFR ( Amer) Est GFR (Non-Af Amer) POC Glucose (mg/dL) 219 H 240 H (65-110) mg/dL Random Glucose (70-110) mg/dL Calcium (8.4-10.5) mg/dL Phosphorus (2.5-4.5) mg/dL Total Bilirubin (0.2-1.3) mg/dL AST (17-59) U/L ALT (7-56) U/L Alkaline Phosphatase (38-126) U/L Total Protein (5.8-8.3) g/dL Albumin (3.0-4.8) g/dL Globulin gm/dL Albumin/Globulin Ratio (1.1-1.8) 12/10/17 12/10/17 12/10/17 Range/Units 22:07 19:55 15:47 WBC (4.5-11.0) 10^3/ul RBC (3.5-6.1) 10^6/uL Hgb (14.0-18.0) g/dL Hct (42.0-52.0) % MCV (80.0-105.0) fl MCH (25.0-35.0) pg MCHC (31.0-37.0) g/dl RDW (11.5-14.5) % Plt Count (120.0-450.0) 10^3/uL MPV (7.0-11.0) fl pCO2 (35-45) mm/Hg pO2 (80-100) mm/Hg HCO3 (21-28) mmol/L ABG pH (7.35-7.45) ABG Total CO2 (22-28) mmol.L ABG O2 Saturation (95-98) % ABG O2 Content (15-23) ML/dl ABG Base Excess (-2.0-3.0) mmol/L ABG Hemoglobin (11.7-17.4) g/dL ABG Carboxyhemoglobin (0.5-1.5) % POC ABG HHb (Measured) (0-5) % ABG Methemoglobin (0.0-3.0) % ABG O2 Capacity (16-24) mL/dl Hgb O2 Saturation (95.0-98.0) % FiO2 % Sodium (132-148) mmol/L Potassium (3.6-5.0) mmol/L Chloride (98-107) mmol/L Carbon Dioxide (21-33) mmol/L Anion Gap (10-20) BUN (7-21) mg/dL Creatinine (0.8-1.5) mg/dl Est GFR ( Amer) Est GFR (Non-Af Amer) POC Glucose (mg/dL) 194 H 157 H 161 H (65-110) mg/dL Random Glucose (70-110) mg/dL Calcium (8.4-10.5) mg/dL Phosphorus (2.5-4.5) mg/dL Total Bilirubin (0.2-1.3) mg/dL AST (17-59) U/L ALT (7-56) U/L Alkaline Phosphatase (38-126) U/L Total Protein (5.8-8.3) g/dL Albumin (3.0-4.8) g/dL Globulin gm/dL Albumin/Globulin Ratio (1.1-1.8) 12/10/17 Range/Units 11:59 WBC (4.5-11.0) 10^3/ul RBC (3.5-6.1) 10^6/uL Hgb (14.0-18.0) g/dL Hct (42.0-52.0) % MCV (80.0-105.0) fl MCH (25.0-35.0) pg MCHC (31.0-37.0) g/dl RDW (11.5-14.5) % Plt Count (120.0-450.0) 10^3/uL MPV (7.0-11.0) fl pCO2 (35-45) mm/Hg pO2 (80-100) mm/Hg HCO3 (21-28) mmol/L ABG pH (7.35-7.45) ABG Total CO2 (22-28) mmol.L ABG O2 Saturation (95-98) % ABG O2 Content (15-23) ML/dl ABG Base Excess (-2.0-3.0) mmol/L ABG Hemoglobin (11.7-17.4) g/dL ABG Carboxyhemoglobin (0.5-1.5) % POC ABG HHb (Measured) (0-5) % ABG Methemoglobin (0.0-3.0) % ABG O2 Capacity (16-24) mL/dl Hgb O2 Saturation (95.0-98.0) % FiO2 % Sodium (132-148) mmol/L Potassium (3.6-5.0) mmol/L Chloride (98-107) mmol/L Carbon Dioxide (21-33) mmol/L Anion Gap (10-20) BUN (7-21) mg/dL Creatinine (0.8-1.5) mg/dl Est GFR ( Amer) Est GFR (Non-Af Amer) POC Glucose (mg/dL) 215 H (65-110) mg/dL Random Glucose (70-110) mg/dL Calcium (8.4-10.5) mg/dL Phosphorus (2.5-4.5) mg/dL Total Bilirubin (0.2-1.3) mg/dL AST (17-59) U/L ALT (7-56) U/L Alkaline Phosphatase (38-126) U/L Total Protein (5.8-8.3) g/dL Albumin (3.0-4.8) g/dL Globulin gm/dL Albumin/Globulin Ratio (1.1-1.8) Laboratory Results - last 24 hr 12/10/17 12/10/17 12/10/17 11:59 15:47 19:55 WBC RBC Hgb Hct MCV MCH MCHC RDW Plt Count MPV pCO2 pO2 HCO3 ABG pH ABG Total CO2 ABG O2 Saturation ABG O2 Content ABG Base Excess ABG Hemoglobin ABG Carboxyhemoglobin POC ABG HHb (Measured) ABG Methemoglobin ABG O2 Capacity Hgb O2 Saturation FiO2 Sodium Potassium Chloride Carbon Dioxide Anion Gap BUN Creatinine Est GFR ( Amer) Est GFR (Non-Af Amer) POC Glucose (mg/dL) 215 H 161 H 157 H Random Glucose Calcium Phosphorus Total Bilirubin AST ALT Alkaline Phosphatase Total Protein Albumin Globulin Albumin/Globulin Ratio 12/10/17 12/10/17 12/11/17 22:07 23:54 03:47 WBC RBC Hgb Hct MCV MCH MCHC RDW Plt Count MPV pCO2 pO2 HCO3 ABG pH ABG Total CO2 ABG O2 Saturation ABG O2 Content ABG Base Excess ABG Hemoglobin ABG Carboxyhemoglobin POC ABG HHb (Measured) ABG Methemoglobin ABG O2 Capacity Hgb O2 Saturation FiO2 Sodium Potassium Chloride Carbon Dioxide Anion Gap BUN Creatinine Est GFR ( Amer) Est GFR (Non-Af Amer) POC Glucose (mg/dL) 194 H 240 H 219 H Random Glucose Calcium Phosphorus Total Bilirubin AST ALT Alkaline Phosphatase Total Protein Albumin Globulin Albumin/Globulin Ratio 12/11/17 12/11/17 12/11/17 06:05 06:05 06:13 WBC 7.6 D RBC 3.29 L Hgb 9.3 L Hct 29.1 L MCV 88.4 MCH 28.3 MCHC 32.0 RDW 15.2 H Plt Count 220 MPV 9.8 pCO2 49 H pO2 91.0 HCO3 26.4 ABG pH 7.34 L ABG Total CO2 27.9 ABG O2 Saturation 97.9 ABG O2 Content 15.8 ABG Base Excess 0.1 ABG Hemoglobin 11.7 ABG Carboxyhemoglobin 1.3 POC ABG HHb (Measured) 2.1 ABG Methemoglobin 0.9 ABG O2 Capacity 16.1 Hgb O2 Saturation 95.7 FiO2 50.0 Sodium 135 Potassium 4.8 Chloride 100 Carbon Dioxide 23 Anion Gap 18 BUN 87 H Creatinine 5.9 H Est GFR ( Amer) 11 Est GFR (Non-Af Amer) 9 POC Glucose (mg/dL) Random Glucose 232 H Calcium 8.1 L Phosphorus 7.0 H Total Bilirubin 0.4 AST 45 ALT 48 Alkaline Phosphatase 197 H Total Protein 6.7 Albumin 2.8 L Globulin 3.9 Albumin/Globulin Ratio 0.7 L 12/11/17 07:39 WBC RBC Hgb Hct MCV MCH MCHC RDW Plt Count MPV pCO2 pO2 HCO3 ABG pH ABG Total CO2 ABG O2 Saturation ABG O2 Content ABG Base Excess ABG Hemoglobin ABG Carboxyhemoglobin POC ABG HHb (Measured) ABG Methemoglobin ABG O2 Capacity Hgb O2 Saturation FiO2 Sodium Potassium Chloride Carbon Dioxide Anion Gap BUN Creatinine Est GFR ( Amer) Est GFR (Non-Af Amer) POC Glucose (mg/dL) 202 H Random Glucose Calcium Phosphorus Total Bilirubin AST ALT Alkaline Phosphatase Total Protein Albumin Globulin Albumin/Globulin Ratio Critical Care Progress Note - Nutrition Nutrition: Nutrition Category Date Time Status NPO Diet [DIET] Diets 12/08/17 Breakfast Ordered Attending/Attestation - Attestation I have personally seen and examined this patient.: Yes I have fully participated in the care of the patient.: Yes I have reviewed all pertinent clinical information: Yes Notes (Text): 12/11/17 11:11 72 yo with hypoxemic respiratory failure due to ARDS in the setting of severe sepsis with MODS. LVEDP is 12, b/l fluffy infiltrates, pa02/fi02<150. Patient was intubated, sedated, NMB started, strict Ppl<30, toelrates 6 cc/pbw well/ Continue conservative fluid management as long as hemodynamics allows, HOB>35, oral hygiene. if gas exchange wont improve by am-->would consider prone positioning. Meanwhile switched PO abx to IV, continue meropenem and dapto. spoke with Dr. Joshua who agreed, sputum culture was sent as well. afib with RVR likely due to severe sepsis-->gave 1L IVF back, dig 0.5 mg IV total, metoprolol 5 mg IV-->still poor VR control. Amiodaron drip started. Would hold on ultrafiltration right now-->discussed with renal. Dr. Whitehead is on board. ccm time 40 min
[2017-12-07] MEDS: Dakin's Topical 0.5%-Full Strength (480 ml) TOP SCH (13:39)
--- NOTE | 2017-12-07 13:56 | CARDCATH ---
ft catheterizations. HISTORY: The patient the patient is a 72-year-old male who developed bilateral infiltrates consistent with pulmonary edema. Because of his very complex presentation, right and left heart catheterization with hemodynamic measurements were performed to rule out cardiac versus noncardiac pulmonary edema. The left femoral vein was cannulated with a 7-Swedish sheath. The left femoral artery was cannulated with a 6-Swedish sheath. There were no complications. The findings on hemodynamic measurements revealed a right atrial pressure of 8 mmHg, RV pressure was 50/8 mmHg, pulmonary artery pressures were 45/21 with a mean of 30 mmHg, pulmonary capillary wedge pressure was 5 mmHg. Left ventricular pressures were measured with a pigtail catheter in the LV. The LVEDP was 11 mmHg. No angiographic were performed given the patient's renal insufficiency. The patient tolerated the procedure well. Manual compression was used to achieve hemostasis. In addition, I performed moderate sedation, which included the presence of an independent trained observer that assisted in monitoring the patient's level of consciousness and physiologic status. After administration of Versed and fentanyl, my inter-service time is 15 minutes. In summary, the procedure revealed mild pulmonary hypertension. Normal pulmonary capillary wedge pressure as well as normal LVEDP at 11 mmHg. Given these findings, the patient is currently not in cardiogenic pulmonary edema. Diuresis with dialysis may have lowered his LVEDP. However, the patient is hemodynamically well controlled. There is no evidence for needing emergency surgery on his mitral valve with [id number] mitral regurgitation. Riccardo Whitehead MD
--- NOTE | 2017-12-07 14:42 | PN ---
DATE: SUBJECTIVE: I saw him in intensive care unit, he is still on BiPAP. He is resting comfortably. He has no acute distress. He is eating some. He is on Apresoline, aspirin, daptomycin, Dakin solution, DuoNeb's, heparin, insulin, Lasix 80 daily, Levemir, Lipitor, Lopressor, Merrem IV, Protonix, multivitamin, Tylenol, Xopenex, Zaroxolyn, and Zyvox p.o. twice a day. He has some improvement overall. He is still in the intensive care unit. OBJECTIVE: VITAL SIGNS: He has a 97.6 temperature, 84 pulse, 164/66 blood pressure, 23 respiratory rate, 92% O2 sat on BiPAP, I wish that was a little bit higher, it is up to 99% right now, which is good. HEENT: His head is atraumatic, normocephalic. HEART: Regular rate. LUNGS: Decreased breath sounds bilaterally, but mostly clear. ABDOMEN: Soft, morbidly obese. EXTREMITIES: Trace edema and he has a right foot which is bandaged. He has an NSTEMI, right foot infection. He has endocarditis of the mitral valve. He has respiratory failure and issues, renal insufficiency. LABORATORY DATA: He has a 15.7 white count - it is the best it has been. It came down from 19; 11.5 hemoglobin; 35.2 hematocrit with 249 platelets. He has a 144 sodium, potassium is 4. BUN 74, creatinine 3.3, was a little bit elevated. He was having some acute kidney injury, mild failure. GFR is 19. He did have dialysis at one time. We will give him another one. I will discuss that with Renal. He has 97 sugar. Total bili is 0.9, AST is 58, ALT is 45, alk phos 245. C-reactive protein is 305, high; and total protein 7.5. Negative hepatitis. He had Klebsiella on urine, staph in the wound. He is being seen by infectious Disease, Podiatry, diamond wheel edger, Cardiology, Pulmonology. He had a chest x-ray today, which showed improving pulmonary edema. We will continue with aggressive treatment and care in the Intensive Care Unit on I have spoken to the daughter every day. We will continue to do that. We will check his labs tomorrow. Continue aggressive treatment and care. Reagan Mendez DO ODILON
--- NOTE | 2017-12-07 14:43 | PN ---
DATE: 12/07/2017 SUBJECTIVE: The patient's breathing is improved today. PHYSICAL EXAMINATION: VITAL SIGNS: Blood pressure 132/60, the heart rates in the 80s. NECK: Negative JVD. LUNGS: Bilateral rales. HEART: Reveals S1, S2 with 2/6 systolic ejection murmur. EXTREMITIES: Bandage in the lower extremities. LABORATORY DATA: Hemoglobin is 11.5. Chemistries: BUN and creatinine is 74 and 3.3. IMPRESSION: 1. Endocarditis. 2. Bilateral pneumonia versus pulmonary edema. 3. Renal insufficiency. 4. Diabetes mellitus. 5. Severe peripheral vascular disease. RECOMMENDATIONS: Given these findings, the patient would benefit from a [place]-Charles catheter for hemodynamic monitoring to rule out ARDS. I have discussed with the patient about [place]-Charles catheter, the patient is agreeable. We will proceed to a [place] today. Riccardo Whitehead MD
[2017-12-07] MEDS ORDERED: Propofol 10 mg/ml 1,000 MG/100 ML VIAL ONE (15:04)
--- NOTE | 2017-12-07 16:01 | RAD ---
HISTORY: Intubated. COMPARISON: Multiple serial examinations preceding the most recent study: December 07, 2017. 05:53. FINDINGS: LUNGS: Worsening pulmonary edema. PLEURA: No significant pleural effusion identified, no pneumothorax apparent. CARDIOVASCULAR: No significant interval change compared to the prior examination(s). OSSEOUS STRUCTURES: Incompletely visualized posterior lateral right rib fractures VISUALIZED UPPER ABDOMEN: Normal. OTHER FINDINGS: Satisfactory position of endotracheal tube and nasogastric tube new findings compared to the most recent study. IMPRESSION: Worsening pulmonary edema.
--- NOTE | 2017-12-07 16:01 | CP.PCM.PN ---
Subjective - Date & Time of Evaluation Date of Evaluation: 12/07/17 Time of Evaluation: 15:58 - Subjective Subjective: Nephrology Consultation Note: Assessment: critical acute hypoxic respi failure with fluid overload/CHF pattern/pulm edema And ARDS status post right heart Acute Kidney Injury (N17.9) likely due to sepsis, wound infection>>leading to ATN, possible AIN due to Abx/infection But urine eos negative DM, HTN (I12.0) active cigar smoker, obesity toe osteomyelitis with sepsis, Mitral valve infective endocarditis Plan Patient has received ultrafiltration 2 Serum creatinine staying stable. Patient challenge with Lasix 80 mg IV and metolazone 5 mg by mouth. He made 900 mL of urine Hence continue the Lasix at this time. We will reevaluate tomorrow for the need for ultrafiltration. His cardiac catheterization suggestive of ARDS as likely etiology for his pulmonary process maintain hemodynamics stable.hold ACEI/ARB due to ROHINI. hold norvasc hold Invokanna Monitor Input/Output, daily weights and renal function with basic metabolic panel Dose meds/antibiotics for reduced GFR. Avoid fleets enema/magnesium based laxatives. Avoid nephrotoxins/NSAIDs/ iodinated contrast (unless needed emergently) Glycemic control pt encouraged to stop smoking Further work up/management as per primary team Thanks for allowing me to participate in care of your patient. Will follow patient with you. Please call if any Qs. d/w team Dr Caden Muller Office: [phone] HPI: Pt is a 72 M with hx of diabetes Mellitus (9 years), hypertension (years) , active cigar smoker, obesity and Rt foot infection, recent ROHINI (peaked cr 2.1 ) presented with complaints of Rt foot wound infection. renal consult for ROHINI eval. his cr 1.1 in 2017 and at d/c last hospitalization Denies OTC/herbal meds or NSAIDs No recent iodinated contrast exposure. episodes of low BP noted. ROS: Patient is sleepy and somewhat lethargic. He is unable to provide much history Physical Examination: General Appearance: Comfortable, On BiPAP . obese. ill appearing. Vitals reviewed and noted as below Head; Atraumatic, normocephalic ENT: no ulcers no thrush. Tongue is midline. Oropharynx: no rash or ulcers. EYES: Pupils are equal, round and reactive to light accommodation. Eye muscles and extraocular movement intact. Sclera is anicteric. Neck; supple no lymphadenopathy, no thyromegaly or bruit Lungs: Increased respiratory rate/effort. Breath sounds bilateral rales/crackles Heart: Normal rate. s1s2 normal. No rub or gallop. Extremities: Rt pedal edema. No varicose veins. Rt foot dressed. Neurological: Patient is Sleepy and somewhat lethargic Skin: Warm and dry. Normal turgor. chronic psoriasis rash. Palpitation: Normal elasticity for age. some petechail rash on upper arm as well Abdomen: Abdomen is soft. Bowel sounds +. There is no abdominal tenderness, no guarding/rigidity no organomegaly Psych: Unable MSK: no joint tenderness or swelling. Digits and nails normal, no deformity : kidney or bladder not palpable Labs/imaging reviewed. Past medical history, past surgical history, family history, social history, allergy reviewed and noted as below Family hx: no hx of CKD. Rest non-contributory workup: renal SONO: WNL UA large blood Objective - Vital Signs/Intake and Output Vital Signs (last 24 hours): Temp Pulse Resp BP Pulse Ox 97.6 F 130 H 20 117/69 93 L 12/07/17 04:00 12/07/17 14:22 12/07/17 13:15 12/07/17 14:22 12/07/17 13:15 Intake and Output: 12/07/17 12/07/17 06:59 18:59 Intake Total 700 Output Total 500 Balance 200 - Medications Medications: Current Medications Acetaminophen (Tylenol 325mg Tab) 650 mg PO Q6H PRN PRN Reason: Fever >100.4 F Albuterol/Ipratropium (Duoneb 3 Mg/0.5 Mg (3 Ml) Ud) 3 ml IH [id number] [facility] Last Admin: 12/07/17 14:04 Dose: Not Given Aspirin (Aspirin Chewable) 81 mg PO DAILY [facility] Last Admin: 12/07/17 09:55 Dose: 81 mg Atorvastatin Calcium (Lipitor) 10 mg PO DIN [facility] Last Admin: 12/06/17 18:52 Dose: Not Given Furosemide (Lasix) 80 mg IVP BID [facility] Stop: 12/09/17 18:01 Heparin Sodium (Porcine) (Heparin) 5,000 units SC Q8 [facility] PRN Reason: Protocol Last Admin: 12/07/17 14:05 Dose: 5,000 units Hydralazine HCl (Apresoline) 25 mg PO Q4 PRN PRN Reason: Other Hydralazine HCl (Apresoline) 10 mg IVP Q6 PRN PRN Reason: SBP >150 and/or DBP >90 Last Admin: 12/04/17 21:55 Dose: 10 mg Meropenem 500 mg/ Sodium (Chloride) 50 mls @ 100 mls/hr IVPB Q12 [facility] PRN Reason: Protocol Stop: 12/13/17 18:52 Last Admin: 12/07/17 09:41 Dose: 100 mls/hr Daptomycin 690 mg/ Sodium (Chloride) 100 mls @ 200 mls/hr IV QOTHERDAY [facility] Stop: 12/29/17 15:01 Last Admin: 12/06/17 11:57 Dose: 200 mls/hr Insulin Detemir (Levemir) 42 unit SC HS [facility] Last Admin: 12/06/17 21:43 Dose: 42 unit Insulin Human Regular (Humulin R High) 0 units SC ACHS [facility] PRN Reason: Protocol Last Admin: 12/07/17 12:30 Dose: Not Given Levalbuterol HCl (Xopenex) 0.63 mg IH [id number] [facility] Last Admin: 12/05/17 08:01 Dose: 0.63 mg Levalbuterol HCl (Xopenex) 1.25 mg IH [id number] PRN PRN Reason: Shortness of Breath Last Admin: 12/06/17 05:35 Dose: 1.25 mg Linezolid (Zyvox) 600 mg PO BID [facility] PRN Reason: Protocol Stop: 12/15/17 19:16 Last Admin: 12/07/17 10:11 Dose: Not Given Metoprolol Tartrate (Lopressor) 5 mg IVP Q6H [facility] Last Admin: 12/07/17 14:22 Dose: 5 mg Metoprolol Tartrate (Lopressor) 25 mg PO BID [facility] Multivitamins (Thera Tab) 1 tab PO DAILY [facility] Last Admin: 12/07/17 10:06 Dose: Not Given Pantoprazole Sodium (Protonix Ec Tab) 40 mg PO 0600 [facility] Last Admin: 12/07/17 05:21 Dose: 40 mg Sodium Hypochlorite (Dakins Solution 0.5%) 0 ml TOP DAILY [facility] Last Admin: 12/07/17 13:39 Dose: Not Given - Labs Labs: 12/07/17 05:50 12/07/17 05:50 PT 13.0 SECONDS (9.4-12.5) H 12/06/17 05:20 INR 1.13 (0.93-1.08) H 12/06/17 05:20
[2017-12-07] MEDS ORDERED: Midazolam 2 MG/2 ML VIAL IVP PRN (16:04)
[2017-12-07] MEDS: NOREPINEPHRINE BIT/0.9 % NACL 4 MG/250 ML BAG IV PRN (16:26)
[2017-12-07 16:29] LABS: ARTERIAL BLOOD GAS O2 SAT 97.3 % (95-98); ARTERIAL BLOOD GAS PCO2 38 mm/Hg (35-45); ARTERIAL BLOOD GAS PH 7.39 (7.35-7.45); ARTERIAL BLOOD GAS TCO2 24.2 mmol.L (22-28)
[2017-12-07] MEDS ORDERED: Digoxin 500 mcg/2ml (0.5 mg/2ml) Inj IVP ONE ×2 (16:58→18:35)
[2017-12-07] MEDS: Fentanyl 1000mcg/100ml NS 1,000 MCG/100 ML BAG IV PRN (17:25)
[2017-12-07 18:49] VITALS: PULSE 127
[2017-12-07] MEDS ORDERED: Amiodarone 150 mg/D5W 100 ml 150 MG/100 ML BAG IVPB ONE (20:20)
[2017-12-07] MEDS ORDERED: Amiodarone 360 mg/D5W 200 ml 360 MG/200 ML BAG IV SCH (20:30)
--- NOTE | 2017-12-07 22:18 | CP.PCM.PN ---
Subjective - Date & Time of Evaluation Date of Evaluation: 12/07/17 Time of Evaluation: 09:10 - Subjective Subjective: Still needing BiPAP but tolerating it, no fevers, not in distress. Objective - Vital Signs/Intake and Output Vital Signs (last 24 hours): Temp Pulse Resp BP Pulse Ox 97.6 F 86 29 H 172/94 H 99 12/07/17 04:00 12/07/17 06:00 12/07/17 06:00 12/07/17 06:00 12/07/17 06:00 Intake and Output: 12/07/17 12/07/17 06:59 18:59 Intake Total 700 Output Total 500 Balance 200 - Medications Medications: Current Medications Acetaminophen (Tylenol 325mg Tab) 650 mg PO Q6H PRN PRN Reason: Fever >100.4 F Albuterol/Ipratropium (Duoneb 3 Mg/0.5 Mg (3 Ml) Ud) 3 ml IH [id number] [facility] Last Admin: 12/07/17 01:27 Dose: 3 ml Aspirin (Aspirin Chewable) 81 mg PO DAILY [facility] Last Admin: 12/06/17 11:56 Dose: Not Given Atorvastatin Calcium (Lipitor) 10 mg PO DIN [facility] Last Admin: 12/06/17 18:52 Dose: Not Given Heparin Sodium (Porcine) (Heparin) 5,000 units SC Q8 GERRY PRN Reason: Protocol Last Admin: 12/07/17 05:21 Dose: 5,000 units Hydralazine HCl (Apresoline) 25 mg PO Q4 PRN PRN Reason: Other Hydralazine HCl (Apresoline) 10 mg IVP Q6 PRN PRN Reason: SBP >150 and/or DBP >90 Last Admin: 12/04/17 21:55 Dose: 10 mg Meropenem 500 mg/ Sodium (Chloride) 50 mls @ 100 mls/hr IVPB Q12 [facility] PRN Reason: Protocol Stop: 12/13/17 18:52 Last Admin: 12/06/17 22:18 Dose: 100 mls/hr Daptomycin 690 mg/ Sodium (Chloride) 100 mls @ 200 mls/hr IV QOTHERDAY [facility] Stop: 12/29/17 15:01 Last Admin: 12/06/17 11:57 Dose: 200 mls/hr Insulin Detemir (Levemir) 42 unit SC [facility] Last Admin: 12/06/17 21:43 Dose: 42 unit Insulin Human Regular (Humulin R High) 0 units SC ACHS [facility] PRN Reason: Protocol Last Admin: 12/07/17 08:14 Dose: Not Given Levalbuterol HCl (Xopenex) 0.63 mg IH [id number] Last Admin: 12/05/17 08:01 Dose: 0.63 mg Levalbuterol HCl (Xopenex) 1.25 mg IH [id number] PRN PRN Reason: Shortness of Breath Last Admin: 12/06/17 05:35 Dose: 1.25 mg Linezolid (Zyvox) 600 mg PO BID [facility] PRN Reason: Protocol Stop: 12/15/17 19:16 Last Admin: 12/06/17 19:15 Dose: Not Given Metoprolol Tartrate (Lopressor) 5 mg IVP Q6H [facility] Last Admin: 12/07/17 03:30 Dose: 5 mg Multivitamins (Thera Tab) 1 tab PO DAILY [facility] Last Admin: 12/06/17 18:53 Dose: Not Given Pantoprazole Sodium (Protonix Ec Tab) 40 mg PO 0600 [facility] Last Admin: 12/07/17 05:21 Dose: 40 mg Sodium Hypochlorite (Dakins Solution 0.5%) 0 ml TOP DAILY [facility] Last Admin: 12/06/17 18:51 Dose: Not Given - Labs Labs: 12/07/17 05:50 12/07/17 05:50 PT 13.0 SECONDS (9.4-12.5) H 12/06/17 05:20 INR 1.13 (0.93-1.08) H 12/06/17 05:20 - Constitutional Appears: Non-toxic, Chronically Ill - Head Exam Head Exam: NORMAL INSPECTION - ENT Exam ENT Exam: Mucous Membranes Moist - Neck Exam Neck Exam: absent: Meningismus - Respiratory Exam Respiratory Exam: Decreased Breath Sounds - Cardiovascular Exam Cardiovascular Exam: +S1, +S2 - GI/Abdominal Exam GI & Abdominal Exam: Soft. 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 Ventura Soto procedure revealed only mild pulmonary HTN and patient is not in florid CHF will continue to monitor clinically
[2017-12-07] MEDS: Vasopressin 20 UNITS in Dextrose 5% In Water 100 ML IV SCH (22:22)
[2017-12-07] MEDS: Insulin Detemir 100 units/ml Vial (Levemir) SC SCH (22:29)
[2017-12-07] MEDS: Linezolid 600 mg in D5W 300 ml 600 MG/300 ML BAG IVPB SCH (23:25)
[2017-12-08] MEDS: Cisatracurium Besylate 100 MG in Sodium Chloride 0.9% 250 ML IV PRN ×3 (00:30→22:11)
[2017-12-08] MEDS: Albuterol-Ipratrop 3 mg / 0.5 (3 ml) UD IH SCH ×4 (01:08→21:40)
--- NOTE | 2017-12-08 01:30 | OP ---
PROCEDURE DATE: 12/07/2017 The patient is seen and examined at bedside. PROCEDURE: Endotracheal intubation. INDICATION: Hypoxemic respiratory failure. DESCRIPTION OF PROCEDURE: Patient was pre-oxygenated with 100% FIO2 via Ambu bag. Vital signs were monitored throughout the procedure. Patient was sedated with 10 mL of propofol. Direct laryngoscopy performed with MAC 4. Vocal cords visualized and trachea intubated with 7.5-Kazakh endotracheal tube. Position confirmed with change in the color of end-tidal CO2 gauge, bilateral lung auscultation and gastric auscultation. Subsequent chest x-ray confirmed position. The patient tolerated the procedure well. Romel Blackwell MD
[2017-12-08] MEDS: Amiodarone 360 mg/D5W 200 ml 360 MG/200 ML BAG IV SCH ×2 (02:45→14:27)
[2017-12-08] MEDS: Fentanyl 1000mcg/100ml NS 1,000 MCG/100 ML BAG IV PRN ×2 (03:42→15:41)
[2017-12-08] MEDS: Metoprolol 1 mg/ml Inj IVP SCH ×4 (03:54→21:54)
[2017-12-08 06:02] LABS: ARTERIAL BLOOD GAS HCO3 23.8 mmol/L (21-28); ARTERIAL BLOOD GAS HEMOGLOBIN 13.9 g/dL (11.7-17.4); ARTERIAL BLOOD GAS O2 CAPACITY 19.6 mL/dl (16-24); ARTERIAL BLOOD GAS O2 CONTENT 19.5 ML/dl (15-23); ARTERIAL BLOOD GAS O2 SAT 99.4 % (95-98); ARTERIAL BLOOD GAS PCO2 61 mm/Hg (35-45); ARTERIAL BLOOD GAS TCO2 25.7 mmol.L (22-28)
[2017-12-08 06:40] LABS: BASO # 0.01 K/mm3 (0.0-2.0); BASO % 0.1 % (0.0-3.0); EOS # 0.2 (0.0-0.7); GRAN # 13.51 (1.4-6.5); GRAN % 87.1 % (50.0-68.0); HEMOGLOBIN 10.3 g/dL (14.0-18.0); LYMPH # 0.7 (1.2-3.4); LYMPH % 4.4 % (22.0-35.0); MEAN CELL VOLUME 90.5 fl (80.0-105.0); MEAN CORPUSCULAR HEMOGLOBIN 28.9 pg (25.0-35.0); MEAN CORPUSCULAR HGB CONC 31.9 g/dl (31.0-37.0); MEAN PLATELET VOLUME 9.4 fl (7.0-11.0); MONO # 1.2 (0.1-0.6); MONO % 7.4 % (1.0-6.0); PLATELET COUNT 216 10^3/uL (120.0-450.0); RBC 3.57 10^6/uL (3.5-6.1); WHITE BLOOD COUNT 15.5 10^3/ul (4.5-11.0)
[2017-12-08 07:16] LABS: ALB/GLOB RATIO 0.7 (1.1-1.8); ALBUMIN 2.9 g/dL (3.0-4.8); CALCIUM 9.2 mg/dL (8.4-10.5)
[2017-12-08 08:59] LABS: EOSINOPHIL 1 % (0.0-3.0); HYPOCHROMIA SLIGHT; LYMPHOCYTE 7 % (22.0-35.0); MONOCYTE 7 % (1.0-6.0); NEUTROPHIL 85 % (50.0-70.0); PLATELET ESTIMATE NORMAL (NORMAL)
[2017-12-08 09:00] LABS: ANISOCYTOSIS SLIGHT
[2017-12-08] MEDS: Insulin Reg-HIGH-Coverage SC SCH ×4 (09:03→20:51)
[2017-12-08] MEDS: Dakin's Topical 0.5%-Full Strength (480 ml) TOP SCH (09:13)
[2017-12-08] MEDS: Multivitamin Therapeutic Tab PO SCH (09:15)
[2017-12-08] MEDS: Meropenem 500 MG in Sodium Chloride 0.9% 50 ML IVPB SCH ×2 (09:16→21:55)
[2017-12-08] MEDS: Linezolid 600 mg in D5W 300 ml 600 MG/300 ML BAG IVPB SCH ×2 (09:16→22:25)
[2017-12-08 09:46] LABS: INR 1.1 (0.93-1.08); PROTHROMBIN TIME 12.7 SECONDS (9.4-12.5)
[2017-12-08 09:47] LABS: PARTIAL THROMBOPLASTIN TIME 30.7 Seconds (25.1-36.5)
--- NOTE | 2017-12-08 10:32 | RAD ---
HISTORY: Follow-up. COMPARISON: Multiple serial examinations preceding the most recent study: December 07, 2017. FINDINGS: LUNGS: Stable bilateral infiltrates. PLEURA: No significant pleural effusion identified, no pneumothorax apparent. CARDIOVASCULAR: No significant interval change compared to the prior examination(s). OSSEOUS STRUCTURES: No significant abnormalities. VISUALIZED UPPER ABDOMEN: Normal. OTHER FINDINGS: Stable position of support apparatus including nasogastric tube and endotracheal tube. IMPRESSION: No significant interval change compared to the prior examination(s).
--- NOTE | 2017-12-08 10:37 | PN ---
DATE: 12/08/2017(595am-745am) PULMONARY NOTE SUBJECTIVE: The patient is now intubated, and remains in the ICU. He is currently sedated. PHYSICAL EXAMINATION VITAL SIGNS: Last temperature recorded is 100.8, pulse 73, respirations 20/20, blood pressure 146/71. Oxygen saturation on the ventilator is 98%. HEENT: Normocephalic, atraumatic. No JVD. CARDIOVASCULAR: Systolic ejection murmur at the lower left sternal border. Questionable S3 gallop. LUNGS: Decreased breath sounds at the bases with crackles. Mild bilateral rhonchi. No wheezing. EXTREMITIES: The right foot remains wrapped. There is mild edema in both lower extremities. There is no cyanosis or clubbing. GI: Abdomen is soft, nondistended. Bowel sounds are positive. SKIN: No acute rash. NEUROLOGIC: Limited at the present time. PERTINENT LABORATORY DATA: Chest x-ray was done this morning and reviewed. It is a very poor portable film. It is certainly rotated. Bilateral pulmonary infiltrates remain. Arterial blood gas was done on PRVC 20, tidal volume 400, FIO2 of 100%. Results are: PH 7.20, pCO2 of 61, pO2 of 191. I also reviewed the cardiac catheterization note by Dr. Whitehead. The pulmonary capillary wedge pressure is normal. IMPRESSION: 1. Respiratory failure. 2. Acute respiratory distress syndrome. 3. Mild bronchospasm. 4. Sepsis syndrome. 5. Renal insufficiency. 6. Mild anemia. 7. Right foot infection. 8. Mitral valve endocarditis. PLAN The patient is now intubated in the ICU. He is currently sedated. I did discuss the case with the night nurse at length. Apparently, late yesterday afternoon, the patient started to experience worsening shortness of breath. Oxygen desaturation was also noted. The patient was then intubated for airway protection and ventilation. I did review the chest x-ray as above. The chest x-ray is a very poor portable rotated film, but remains with significant bilateral pulmonary infiltrates. The patient did present to the ICU with acute pulmonary edema, and fluid overload state. However, his left ventricular end-diastolic pressure is now normal. Thus, the chest x-ray findings are most consistent with acute respiratory distress syndrome. I did review the arterial blood gas as above. There is a significant respiratory acidosis noted with a significant increase in the alveolar-arterial gradient. I will discuss the case with the entire ICU team in the next few moments, and additional ventilator adjustments can be made. I would continue with the antibiotic coverage as per infectious disease. I did discuss the case with Dr. Hu this morning. The patient also remains on Lasix as per renal. The patient has also been placed on intravenous hydrocortisone - as per the ICU team/Dr. Blackwell. The patient is critically ill at this point in time. Again, I will discuss the above with the entire ICU team in the next few moments. I will discuss the above with Dr. Mendez later this morning. Baljinder Dejesus MD MTDD
--- NOTE | 2017-12-08 11:11 | PN ---
DATE: SUBJECTIVE: A 72-year-old diabetic male seen in the ICU for followup evaluation and management of osteomyelitis in his right foot. The patient is intubated and sedated at this time. The patient's vital signs reveal temperature of 98.3, pulse rate of 73, blood pressure of 146/71 and O2 saturation of 97. Laboratory findings reveal white count of 15.5, hemoglobin of 10.3, hematocrit of 32.3, platelet count of 216. Most recent microbiology reports revealed negative C. diff antigen and toxin. OBJECTIVE: The patient's dressing presents clean, dry and intact with no excessive drainage noted. His foot presents with 2 incision sites, one dorsal and plantar over the second metatarsophalangeal joint area. There is a sinus tract from dorsal to plantar, which is closing and shows no signs of purulence. There is noted to be minimal amount of serous drainage. There is positive exposed second and third MP joint. There is exposed second and third metatarsal bones. The entire forefoot is showing signs of decreasing edema and decreasing erythema; however, acute infection is still present. ASSESSMENT: Diabetic foot infection with osteomyelitis with sepsis and multiple organ failure. PLAN: The patient's wound was cleansed with normal sterile saline. The patient's wound was flushed with normal sterile saline. 1-inch iodoform packing was gently placed from dorsal to plantar and wound was cleansed with normal sterile saline. Most recent chest x-ray reveals worsening pulmonary edema. Dr. Hernández's note was read and appreciated. We will continue with local wound care daily. Walker Chowdhury DPM
--- NOTE | 2017-12-08 12:32 | PN ---
DATE: 12/08/2017 CREDIT CARD ANALYST NOTE LOCATION: [facility]. SUBJECTIVE: The patient is sedated on the ventilator with FIO2 of 100%. Noted to have florid congestive heart failure with low ejection fraction. The patient is noted to also be septic and has pneumonia. He is on Levophed as well as fentanyl and amiodarone for heart rate control. PHYSICAL EXAMINATION: VITAL SIGNS: Physical exam note that his temperature is 97.0, his pulse is 84, respirations are 20 and BP is 119/55, O2 saturation is 99%. HEENT: Head is atraumatic, normocephalic. Eyes reactive to light. Ear, nose and throat seemed to be within normal limits. NECK: Supple. No JVD. No thyroid enlargement. No lymph nodes. HEART: Regular rate and rhythm. Normal S1, S2. LUNGS: Reveal mild rhonchi bilaterally. ABDOMEN: Soft. Decreased bowel sounds. GENITALIA AND RECTAL: Deferred. MUSCULOSKELETAL: No joint deformities. EXTREMITIES: Reveal lower extremity edema with toe amputations on the right foot, noted to have osteomyelitis. NEUROLOGICAL: The patient is sedated on the ventilator. LABORATORY DATA: As far as his laboratories, his white count is 15.5, hemoglobin is 10.3, hematocrit 22.3 with platelets of 216,000. Arterial blood gas reveals a pH of 7.20, pCO2 of 61, pO2 of 191. As far as his sodium is 141, potassium 5.0, chloride 103, CO2 of 25 with a BUN of 90, creatinine of 4.6 and a glucose of 259. The patient's chest x-ray reveals pulmonary edema. IMPRESSION: As far as my impression, this patient has respiratory failure with requiring FIO2 of 100%. He has severe congestive heart failure/pulmonary edema with possible pneumonia. The patient has osteomyelitis of the right foot and felt to be an adult respiratory distress syndrome as far as his lung is concerned. The patient is tachycardic and has endocarditis and methicillin-resistant Staphylococcus aureus of the wound. He has acute renal failure and a history of diabetes and hypertension. The patient does have respiratory acidosis, on the ventilator. PLAN: As far as our plan, we will continue with ventilator support and decrease the FIO2 as tolerated. We will continue with aggressive pulmonary toilet. The patient is on DuoNeb as a bronchodilator. He is getting Levophed as well as fentanyl. He is on Lasix for diuresis and meropenem and vancomycin as antibiotics. We will continue to treat aggressively along with the other consultants and the primary care doctor. Harinder Oropeza MD
--- NOTE | 2017-12-08 13:20 | CP.PCM.PN ---
Subjective - Date & Time of Evaluation Date of Evaluation: 12/08/17 Time of Evaluation: 13:15 - Subjective Subjective: Nephrology Consultation Note: Assessment: critical acute hypoxic respi failure with fluid overload/CHF pattern/pulm edema And ARDS status post right heart Acute Kidney Injury (N17.9) likely due to sepsis, wound infection>>leading to ATN, possible AIN due to Abx/infection But urine eos negative DM, HTN (I12.0) active cigar smoker, obesity toe osteomyelitis with sepsis, Mitral valve infective endocarditis Plan Patient has received ultrafiltration 2 minimal uop ~ 100cc for past 7 hours w/ worsening azotemia. on low dose pressors to avoid worsening pulmonary status w/ volume, will plan on HD today and see how well he tolerates uf maintain hemodynamics stable.hold ACEI/ARB due to ROHINI. Glycemic control S: seen and examined, intubated and paralyzed Physical Examination: General Appearance: Comfortable, intubated and paralyzed . obese. ill appearing. Vitals reviewed and noted as below Head; Atraumatic, normocephalic ENT: no ulcers no thrush. Tongue is midline. Oropharynx: et EYES: Pupils are anicteric. Neck; supple no lymphadenopathy, no thyromegaly or bruit Lungs: Increased respiratory rate/effort. Breath sounds bilateral rales/crackles , mechanical bs Heart: Normal rate. s1s2 normal. No rub or gallop. Extremities: Rt pedal edema. No varicose veins. Rt foot dressed. Neurological: paralyzed Skin: Warm and dry. Abdomen: Abdomen is soft. Bowel sounds reduced Psych: paralyzed MSK: no joint tenderness or swelling. Digits and nails normal, no deformity : kidney or bladder not palpable Labs/imaging reviewed. Past medical history, past surgical history, family history, social history, allergy reviewed and noted as below Family hx: no hx of CKD. Rest non-contributory Objective - Vital Signs/Intake and Output Vital Signs (last 24 hours): Temp Pulse Resp BP Pulse Ox 96.8 F L 75 16 117/67 98 12/08/17 12:15 12/08/17 12:15 12/07/17 18:15 12/08/17 12:15 12/08/17 12:15 Intake and Output: 12/08/17 12/08/17 06:59 18:59 Intake Total 1221 500 Output Total 85 Balance 1136 500 - Medications Medications: Current Medications Acetaminophen (Tylenol 325mg Tab) 650 mg PO Q6H PRN PRN Reason: Fever >100.4 F Albuterol/Ipratropium (Duoneb 3 Mg/0.5 Mg (3 Ml) Ud) 3 ml IH [id number] [facility] Last Admin: 12/08/17 13:14 Dose: 3 ml Aspirin (Aspirin Chewable) 81 mg PO DAILY [facility] Last Admin: 12/08/17 09:16 Dose: 81 mg Atorvastatin Calcium (Lipitor) 10 mg PO DIN [facility] Last Admin: 12/07/17 18:57 Dose: Not Given Furosemide (Lasix) 80 mg IVP BID [facility] Stop: 12/09/17 18:01 Last Admin: 12/07/17 18:56 Dose: Not Given Heparin Sodium (Porcine) (Heparin) 5,000 units SC Q8 GERRY PRN Reason: Protocol Last Admin: 12/08/17 06:09 Dose: 5,000 units Hydralazine HCl (Apresoline) 25 mg PO Q4 PRN PRN Reason: Other Hydralazine HCl (Apresoline) 10 mg IVP Q6 PRN PRN Reason: SBP >150 and/or DBP >90 Last Admin: 12/04/17 21:55 Dose: 10 mg Hydrocortisone Sodium Succinate (Solu-Cortef) 50 mg IVP Q6H [facility] Last Admin: 12/08/17 09:03 Dose: 50 mg Meropenem 500 mg/ Sodium (Chloride) 50 mls @ 100 mls/hr IVPB Q12 [facility] PRN Reason: Protocol Stop: 12/13/17 18:52 Last Admin: 12/08/17 09:16 Dose: 100 mls/hr Daptomycin 690 mg/ Sodium (Chloride) 100 mls @ 200 mls/hr IV QOTHERDAY [facility] Stop: 12/29/17 15:01 Last Admin: 12/06/17 11:57 Dose: 200 mls/hr NOREPINEPHRINE BIT/0.9 % NACL (Levophed 4 Mg/ 250 Ml Ns Premixed) 4 mg in 250 mls @ 15 mls/hr IV .[id number] PRN; Protocol; 4 MCG/MIN PRN Reason: TITRATE PER MD ORDER Last Titration: 12/08/17 10:30 Dose: 2 mcg/min, 7.5 mls/hr Fentanyl Citrate (Fentanyl Citrate/Sodium Chloride 1 Mg/100 Ml) 1,000 mcg in 100 mls @ 2 mls/hr IV .Q24H PRN; Protocol; 20 MCG/HR PRN Reason: TITRATE PER MD ORDER Last Admin: 12/08/17 03:42 Dose: 100 mcg/hr, 10 mls/hr Vasopressin 20 units/ Dextrose 101 mls @ 9.09 mls/hr IV .Q11H7M GERRY; 0.03 U/MIN PRN Reason: Protocol Last Admin: 12/07/17 22:22 Dose: Not Given Linezolid (Zyvox 600mg/300ml D5w) 600 mg in 300 mls @ 200 mls/hr IVPB Q12 GERRY PRN Reason: Protocol Stop: 12/14/17 22:01 Last Admin: 12/08/17 09:16 Dose: 200 mls/hr Amiodarone HCl/Dextrose (Nexterone 360 Mg In D5w 200 Ml (Premix)) 360 mg in 200 mls @ 16.667 mls/hr IV .Q12H GERRY; 0.5 MG/MIN PRN Reason: Protocol Stop: 12/08/17 20:33 Last Admin: 12/08/17 02:45 Dose: 16.667 mls/hr Cisatracurium Besylate 100 mg/ (Sodium Chloride) 260 mls @ 9.02 mls/hr IV .Q24H PRN; Protocol; 0.5 MCG/KG/MIN PRN Reason: TITRATE PER MD ORDER Last Admin: 12/08/17 10:53 Dose: 0.5 mcg/kg/min, 9.02 mls/hr Insulin Detemir (Levemir) 42 unit SC HS [facility]ERRY Last Admin: 12/07/17 22:29 Dose: 42 unit Insulin Human Regular (Humulin R High) 0 units SC ACHS GERRY PRN Reason: Protocol Last Admin: 12/08/17 11:52 Dose: 10 units Levalbuterol HCl (Xopenex) 0.63 mg IH [id number] GERRY Last Admin: 12/05/17 08:01 Dose: 0.63 mg Levalbuterol HCl (Xopenex) 1.25 mg IH [id number] PRN PRN Reason: Shortness of Breath Last Admin: 12/06/17 05:35 Dose: 1.25 mg Metoprolol Tartrate (Lopressor) 5 mg IVP Q6H [facility]ERR[facility] Last Admin: 12/08/17 09:14 Dose: Not Given Metoprolol Tartrate (Lopressor) 25 mg PO BID [facility] Midazolam HCl (Versed Inj) 4 mg IVP Q4 PRN PRN Reason: Agitation Last Admin: 12/07/17 17:44 Dose: 4 mg Multivitamins (Thera Tab) 1 tab PO DAILY [facility] Last Admin: 12/08/17 09:15 Dose: 1 tab Pantoprazole Sodium (Protonix Inj) 40 mg IVP DAILY [facility] Last Admin: 12/08/17 09:15 Dose: 40 mg Sodium Hypochlorite (Dakins Solution 0.5%) 0 ml TOP DAILY [facility] Last Admin: 12/08/17 09:13 Dose: Not Given - Labs Labs: 12/08/17 06:15 12/08/17 06:15 PT 12.7 SECONDS (9.4-12.5) H 12/08/17 08:30 INR 1.10 (0.93-1.08) H 12/08/17 08:30 APTT 30.7 Seconds (25.1-36.5) 12/08/17 08:30
--- NOTE | 2017-12-08 16:12 | PN ---
DATE: SUBJECTIVE: I saw him in the Intensive Care Unit. He is now on the ventilator. He most probably got adult respiratory distress syndrome and probably, a pneumonia underneath that with acute respiratory failure, endocarditis, severe foot infection, possible osteomyelitis. He is on Apresoline, aspirin, cisatracurium IV, Dakin's solution, daptomycin IV, DuoNebs, fentanyl patch, heparin, Lasix IV was on hold, Levemir, norepinephrine, Lipitor, Lopressor, Merrem IV, amiodarone, Protonix, Solu-Cortef at a very high dose, Thera-Tabs, Tylenol, vasopressin, Versed, Xopenex and Zyvox IV. PHYSICAL EXAMINATION VITAL SIGNS: He has a temperature, 84 pulse, 119/55 blood pressure, 99% O2 sat on 46% tidal and CO2. HEENT: His head is atraumatic, normocephalic. HEART: Regular rate. LUNGS: Decreased breath sounds. ABDOMEN: Soft, obese. EXTREMITIES: Wrapped up. LABORATORY DATA: He has got multiple issues. He has a 15.5 white count, 10.3 hemoglobin, 32.3 hematocrit with a 216,000 platelets. He has a 141 sodium, potassium 5, BUN 90, creatinine 4.6 and he is on dialysis now, which is not good. GFR is 13. Sugars have been 259 and 153, he is all over the place. Calcium is 9.2, total bili is 0.5, AST is 37, ALT is 53, alkaline phosphatase 213, total protein 6.9. ASSESSMENT AND PLAN: He has got urinary tract infection on top of all this. We will continue with a very aggressive treatment and care. He has multiple physicians seeing him, Infectious Disease, Student, Renal, Cardiology, Pulmonary, Podiatry and he has a very serious condition. His chest x-ray today showed stable bilateral infiltrates. I will talk with the family. Reagan Mendez DO [email or web address]
[2017-12-08] MEDS: Vasopressin 20 UNITS in Dextrose 5% In Water 100 ML IV SCH (17:04)
[2017-12-08 19:15] LABS: ARTERIAL BLOOD GAS O2 CAPACITY 14.3 mL/dl (16-24); ARTERIAL BLOOD GAS O2 CONTENT 14.2 ML/dl (15-23); ARTERIAL BLOOD GAS O2 SAT 99.2 % (95-98); ARTERIAL BLOOD GAS PCO2 52 mm/Hg (35-45); ARTERIAL BLOOD GAS PH 7.29 (7.35-7.45); ARTERIAL BLOOD GAS TCO2 26.6 mmol.L (22-28)
[2017-12-08] MEDS: NOREPINEPHRINE BIT/0.9 % NACL 4 MG/250 ML BAG IV PRN (20:52)
[2017-12-08] MEDS: Insulin Detemir 100 units/ml Vial (Levemir) SC SCH (22:22)
[2017-12-08] MEDS: Pantoprazole 40 mg EC Tab PO SCH (22:27)
[2017-12-08 23:17] LABS: ANCA SCREEN NEGATIVE (NEGATIVE)
--- NOTE | 2017-12-09 01:53 | PN ---
DATE: 12/08/2017 SUBJECTIVE: The patient is in bed, in no acute distress, remains intubated on a ventilator, and with no fevers. PHYSICAL EXAMINATION: VITAL SIGNS: Temperature is 96.8, heart rate of 93, blood pressure is 113/50. HEENT: Unremarkable. NECK: Supple. LUNGS: Have decreased breath sounds. HEART: Normal S1, S2. ABDOMEN: Soft, nontender. No rebound. No guarding. No masses. LABORATORY EXAMINATION: Reveals the patient's white count is 15,500, hemoglobin of 10, platelets of 216. Chemistries reveal a BUN of 90, creatinine of 4.6. Procalcitonin is 3.18. Microbiology reveals repeat blood cultures are negative and sputum cultures are pending. Urine cultures have no growth. C. diff antigen and toxin are negative. ASSESSMENT AND PLAN: This is a 72-year-old male with sensitive Staphylococcus aureus bacteremia, mitral valve endocarditis, methicillin-resistant Staphylococcus aureus foot infection status post incision and drainage with respiratory failure, intubated on a ventilator with a new onset of healthcare-associated pneumonia, adult respiratory distress syndrome and with diabetes, hypertension, dyslipidemia and psoriasis, on daptomycin, Zyvox and meropenem. Overall prognosis is quite poor. Daptomycin is active and so is meropenem and Zyvox. The patient is also on Solu-Cortef. Prognosis is quite poor, case discussed with Dr. Dejesus this morning and his input is greatly appreciated. Jesús Hu MD
[2017-12-09] MEDS: Metoprolol 1 mg/ml Inj IVP SCH ×4 (03:00→21:15)
[2017-12-09] MEDS: Albuterol-Ipratrop 3 mg / 0.5 (3 ml) UD IH SCH ×4 (03:15→22:05)
[2017-12-09] MEDS: Insulin Reg-HIGH-Coverage SC SCH ×6 (05:00→21:04)
[2017-12-09 07:08] LABS: BASO # 0.01 K/mm3 (0.0-2.0); BASO % 0.1 % (0.0-3.0); EOS # 0.1 (0.0-0.7); EOS % 0.5 % (1.5-5.0); GRAN # 13.95 (1.4-6.5); GRAN % 87.3 % (50.0-68.0); HEMOGLOBIN 9.5 g/dL (14.0-18.0); LYMPH # 1.5 (1.2-3.4); LYMPH % 9.1 % (22.0-35.0); MEAN CELL VOLUME 90.8 fl (80.0-105.0); MEAN CORPUSCULAR HEMOGLOBIN 28.3 pg (25.0-35.0); MEAN CORPUSCULAR HGB CONC 31.1 g/dl (31.0-37.0); MEAN PLATELET VOLUME 9.7 fl (7.0-11.0); MONO # 0.5 (0.1-0.6); RBC 3.36 10^6/uL (3.5-6.1)
[2017-12-09 07:31] LABS: ARTERIAL BLOOD GAS HEMOGLOBIN 7.5 g/dL (11.7-17.4); ARTERIAL BLOOD GAS O2 CAPACITY 10.4 mL/dl (16-24); ARTERIAL BLOOD GAS O2 CONTENT 10.3 ML/dl (15-23); ARTERIAL BLOOD GAS O2 SAT 98.9 % (95-98); ARTERIAL BLOOD GAS PCO2 49 mm/Hg (35-45); ARTERIAL BLOOD GAS PH 7.28 (7.35-7.45); ARTERIAL BLOOD GAS TCO2 24.5 mmol.L (22-28)
[2017-12-09 07:33] LABS: ALB/GLOB RATIO 0.7 (1.1-1.8); ALBUMIN 2.7 g/dL (3.0-4.8); CALCIUM 8.8 mg/dL (8.4-10.5)
[2017-12-09] MEDS: Multivitamin Therapeutic Tab PO SCH (09:22)
[2017-12-09] MEDS: Meropenem 500 MG in Sodium Chloride 0.9% 50 ML IVPB SCH ×2 (09:22→21:15)
[2017-12-09] MEDS: Cisatracurium Besylate 100 MG in Sodium Chloride 0.9% 250 ML IV PRN ×2 (09:44→20:50)
[2017-12-09] MEDS: Linezolid 600 mg in D5W 300 ml 600 MG/300 ML BAG IVPB SCH ×2 (09:45→21:15)
--- NOTE | 2017-12-09 10:00 | RAD ---
HISTORY: f/u COMPARISON: Follow-up Multiple serial examinations preceding the most recent study: December 08, 2017. FINDINGS: LUNGS: Improving bilateral pulmonary infiltrates. PLEURA: No significant pleural effusion identified, no pneumothorax apparent. CARDIOVASCULAR: Normal. OSSEOUS STRUCTURES: No significant abnormalities. VISUALIZED UPPER ABDOMEN: Normal. OTHER FINDINGS: Stable position of support apparatus including endotracheal tube and nasogastric tube. IMPRESSION: Improving multifocal pulmonary alveolar infiltrates.
[2017-12-09] MEDS: Fentanyl 1000mcg/100ml NS 1,000 MCG/100 ML BAG IV PRN ×2 (10:08→20:48)
[2017-12-09] MEDS: Dakin's Topical 0.5%-Full Strength (480 ml) TOP SCH (10:27)
[2017-12-09] MEDS ORDERED: Insulin Detemir 100 units/ml Vial (Levemir) SC SCH (13:27)
--- NOTE | 2017-12-09 13:47 | CP.PCM.PN ---
<Jose C Rodgers - Last Filed: 12/09/17 13:43> Subjective - Date & Time of Evaluation Date of Evaluation: 12/09/17 Time of Evaluation: 11:00 - Subjective Subjective: Podiatry Progress Note- Dr. Baron 72 y/o male seen and examined at bedside this morning in ICU, 13 days s/p debridement of right foot diabetic ulceration with sinus tract and underlying OM. Patient is intubated and sedated during the time of visitation. No pain expressed with dressing change. Dressing to the right foot is clean, dry and intact without strikethrough. Multipodus on during the visitation. Objective - Vital Signs/Intake and Output Vital Signs (last 24 hours): Temp Pulse Resp BP Pulse Ox 96.8 F L 84 20 129/61 95 12/09/17 13:00 12/09/17 13:00 12/09/17 04:35 12/09/17 13:00 12/09/17 13:00 Intake and Output: 12/09/17 12/09/17 06:59 18:59 Intake Total 805.5 335 Output Total 50 Balance 755.5 335 - Medications Medications: Current Medications Acetaminophen (Tylenol 325mg Tab) 650 mg PO Q6H PRN PRN Reason: Fever >100.4 F Albuterol/Ipratropium (Duoneb 3 Mg/0.5 Mg (3 Ml) Ud) 3 ml IH [id number] [facility] Last Admin: 12/09/17 08:56 Dose: 3 ml Aspirin (Aspirin Chewable) 81 mg PO DAILY [facility] Last Admin: 12/09/17 09:22 Dose: 81 mg Atorvastatin Calcium (Lipitor) 10 mg PO DIN [facility] Last Admin: 12/08/17 17:54 Dose: 10 mg Furosemide (Lasix) 80 mg IVP BID [facility] Stop: 12/09/17 18:01 Last Admin: 12/07/17 18:56 Dose: Not Given Heparin Sodium (Porcine) (Heparin) 5,000 units SC Q8 GERRY PRN Reason: Protocol Last Admin: 12/09/17 05:46 Dose: 5,000 units Hydralazine HCl (Apresoline) 25 mg PO Q4 PRN PRN Reason: Other Hydralazine HCl (Apresoline) 10 mg IVP Q6 PRN PRN Reason: SBP >150 and/or DBP >90 Last Admin: 12/04/17 21:55 Dose: 10 mg Hydrocortisone Sodium Succinate (Solu-Cortef) 50 mg IVP Q6H [facility] Last Admin: 12/09/17 12:16 Dose: 50 mg Meropenem 500 mg/ Sodium (Chloride) 50 mls @ 100 mls/hr IVPB Q12 [facility]ERR[facility] PRN Reason: Protocol Stop: 12/13/17 18:52 Last Admin: 12/09/17 09:22 Dose: 100 mls/hr Daptomycin 690 mg/ Sodium (Chloride) 100 mls @ 200 mls/hr IV QOTHERDAY [facility] Stop: 12/29/17 15:01 Last Admin: 12/08/17 11:50 Dose: 200 mls/hr NOREPINEPHRINE BIT/0.9 % NACL (Levophed 4 Mg/ 250 Ml Ns Premixed) 4 mg in 250 mls @ 15 mls/hr IV .[id number] PRN; Protocol; 4 MCG/MIN PRN Reason: TITRATE PER MD ORDER Last Titration: 12/09/17 09:30 Dose: 0 mcg/min, 0 mls/hr Fentanyl Citrate (Fentanyl Citrate/Sodium Chloride 1 Mg/100 Ml) 1,000 mcg in 100 mls @ 2 mls/hr IV .Q24H PRN; Protocol; 20 MCG/HR PRN Reason: TITRATE PER MD ORDER Last Admin: 12/09/17 10:08 Dose: 100 mcg/hr, 10 mls/hr Vasopressin 20 units/ Dextrose 101 mls @ 9.09 mls/hr IV .Q11H7M GERRY; 0.03 U/MIN PRN Reason: Protocol Last Admin: 12/08/17 17:04 Dose: Not Given Linezolid (Zyvox 600mg/300ml D5w) 600 mg in 300 mls @ 200 mls/hr IVPB Q12 GERRY PRN Reason: Protocol Stop: 12/14/17 22:01 Last Admin: 12/09/17 09:45 Dose: 200 mls/hr Cisatracurium Besylate 100 mg/ (Sodium Chloride) 260 mls @ 9.02 mls/hr IV .Q24H PRN; Protocol; 0.5 MCG/KG/MIN PRN Reason: TITRATE PER MD ORDER Last Titration: 12/09/17 11:45 Dose: 1.5 mcg/kg/min, 27.06 mls/hr Insulin Detemir (Levemir) 45 unit SC HS [facility] Insulin Human Regular (Humulin R High) 0 units SC Q4 GERRY PRN Reason: Protocol Last Admin: 12/09/17 12:14 Dose: 7 units Levalbuterol HCl (Xopenex) 0.63 mg IH [id number] [facility] Last Admin: 12/05/17 08:01 Dose: 0.63 mg Levalbuterol HCl (Xopenex) 1.25 mg IH [id number] PRN PRN Reason: Shortness of Breath Last Admin: 12/06/17 05:35 Dose: 1.25 mg Metoprolol Tartrate (Lopressor) 5 mg IVP Q6H [facility] Last Admin: 12/09/17 09:23 Dose: Not Given Metoprolol Tartrate (Lopressor) 25 mg PO BID [facility] Midazolam HCl (Versed Inj) 4 mg IVP Q4 PRN PRN Reason: Agitation Last Admin: 12/07/17 17:44 Dose: 4 mg Multivitamins (Thera Tab) 1 tab PO DAILY [facility] Last Admin: 12/09/17 09:22 Dose: 1 tab Pantoprazole Sodium (Protonix Inj) 40 mg IVP DAILY [facility] Last Admin: 12/09/17 09:22 Dose: 40 mg Sodium Hypochlorite (Dakins Solution 0.5%) 0 ml TOP DAILY [facility] Last Admin: 12/09/17 10:27 Dose: Not Given - Labs Labs: 12/09/17 06:00 12/09/17 06:00 PT 12.7 SECONDS (9.4-12.5) H 12/08/17 08:30 INR 1.10 (0.93-1.08) H 12/08/17 08:30 APTT 30.7 Seconds (25.1-36.5) 12/08/17 08:30 - Constitutional Appears: Well, Non-toxic, No Acute Distress - Extremities Exam Extremities Exam: absent: Calf Tenderness Additional comments: RLE focused exam: Vasc: DP and PT non-palpable, temperature gradient is warm to cool from proximal to distal, Cap refill time: < 3 seconds to all digits, moderate non- pitting edema noted to the right forefoot Derm: Two surgical incisions: Mild anguinous drainage noted to dressing. #1 longitudinal surgical incision noted to the plantar aspect of the sub metatarsal 2 measuring approximately 4 x .3 cm and #2 surgical incision measuring approximately 2 cm x .3 cm on the dorsum of the foot at the level of the 2nd metatarsal head. Incisions connect forming a tunnel through the forefoot. Wound base is 100% granular with no active drainage, no fluctuance noted, no purulence, no active bleeding, no malodor, no tunneling but tracking present to the plantar surgical incision from the dorsal incision. (+) probe to bone down to both 2nd and 3rd metatarsals. no clinical suspicion of active infection at this time. Neuro: gross and protective sensation diminished Ortho: no pain with palpation to ulceration site, right healed partial ray amputation Assessment and Plan - Assessment and Plan (Free Text) Assessment: 72 y/o male 13 days s/p debridement of right foot diabetic ulceration with sinus tract Plan: Patient seen and evaluated at bedside Discussed plan in detail with attending Dr. Baron Labs and vitals reviewed- afebrile, WBC 16 today MRI of foot reviewed: possible OM of the 2nd and 3rd metatarsals and proximal phalanges Continue abx as per ID - Daptomycin Surgical site cleaned with saline 1/4" iodoform packing with ABD and DSD to R foot At this time, TMA is clinically indicated due to osteomyelitis of 2nd and 3rd mets and proximal phalanges with (+) probe to bone Will hold off on surgical intervention as patient is not a stable candidate at this time Podiatry to continue to follow patient while in house <Eileen Baron - Last Filed: 12/10/17 13:05> Objective - Vital Signs/Intake and Output Vital Signs (last 24 hours): Temp Pulse Resp BP Pulse Ox 98.8 F 79 20 93/41 L 94 L 12/10/17 11:49 12/10/17 11:30 12/10/17 04:35 12/10/17 11:30 12/10/17 11:30 Intake and Output: 12/10/17 12/10/17 06:59 18:59 Intake Total 430 280 Balance 430 280 - Medications Medications: Current Medications Acetaminophen (Tylenol 325mg Tab) 650 mg PO Q6H PRN PRN Reason: Fever >100.4 F Albuterol/Ipratropium (Duoneb 3 Mg/0.5 Mg (3 Ml) Ud) 3 ml IH [id number] [facility] Last Admin: 12/10/17 08:08 Dose: 3 ml Aspirin (Aspirin Chewable) 81 mg PO DAILY [facility] Last Admin: 12/10/17 09:14 Dose: 81 mg Atorvastatin Calcium (Lipitor) 10 mg PO DIN [facility] Last Admin: 12/09/17 17:03 Dose: 10 mg Heparin Sodium (Porcine) (Heparin) 5,000 units SC Q8 GERRY PRN Reason: Protocol Last Admin: 12/10/17 05:10 Dose: 5,000 units Hydralazine HCl (Apresoline) 25 mg PO Q4 PRN PRN Reason: Other Hydralazine HCl (Apresoline) 10 mg IVP Q6 PRN PRN Reason: SBP >150 and/or DBP >90 Last Admin: 12/04/17 21:55 Dose: 10 mg Hydrocortisone Sodium Succinate (Solu-Cortef) 50 mg IVP Q6H [facility] Last Admin: 12/10/17 05:59 Dose: 50 mg Meropenem 500 mg/ Sodium (Chloride) 50 mls @ 100 mls/hr IVPB Q12 [facility] PRN Reason: Protocol Stop: 12/13/17 18:52 Last Admin: 12/10/17 09:15 Dose: 100 mls/hr Daptomycin 690 mg/ Sodium (Chloride) 100 mls @ 200 mls/hr IV QOTHERDAY [facility] Stop: 12/29/17 15:01 Last Admin: 12/10/17 12:33 Dose: 200 mls/hr Fentanyl Citrate (Fentanyl Citrate/Sodium Chloride 1 Mg/100 Ml) 1,000 mcg in 100 mls @ 2 mls/hr IV .Q24H PRN; Protocol; 20 MCG/HR PRN Reason: TITRATE PER MD ORDER Last Titration: 12/10/17 09:02 Dose: 150 mcg/hr, 15 mls/hr Linezolid (Zyvox 600mg/300ml D5w) 600 mg in 300 mls @ 200 mls/hr IVPB Q12 [facility] PRN Reason: Protocol Stop: 12/14/17 22:01 Last Admin: 12/10/17 09:14 Dose: 200 mls/hr Insulin Detemir (Levemir) 48 unit SC HS [facility] Insulin Human Regular (Humulin R High) 0 units SC Q4 [facility] PRN Reason: Protocol Last Admin: 12/10/17 12:31 Dose: 4 units Levalbuterol HCl (Xopenex) 0.63 mg IH [id number] [facility] Last Admin: 12/05/17 08:01 Dose: 0.63 mg Levalbuterol HCl (Xopenex) 1.25 mg IH [id number] PRN PRN Reason: Shortness of Breath Last Admin: 12/06/17 05:35 Dose: 1.25 mg Metoprolol Tartrate (Lopressor) 5 mg IVP Q6H [facility] Last Admin: 12/10/17 09:25 Dose: Not Given Metoprolol Tartrate (Lopressor) 25 mg PO BID [facility] Midazolam HCl (Versed Inj) 4 mg IVP Q4 PRN PRN Reason: Agitation Last Admin: 12/07/17 17:44 Dose: 4 mg Multivitamins (Thera Tab) 1 tab PO DAILY [facility] Last Admin: 12/10/17 09:14 Dose: 1 tab Pantoprazole Sodium (Protonix Inj) 40 mg IVP DAILY [facility] Last Admin: 12/10/17 09:13 Dose: 40 mg Sodium Hypochlorite (Dakins Solution 0.5%) 0 ml TOP DAILY [facility] Last Admin: 12/10/17 09:10 Dose: Not Given - Labs Labs: 12/10/17 07:30 12/10/17 07:30 PT 12.7 SECONDS (9.4-12.5) H 12/08/17 08:30 INR 1.10 (0.93-1.08) H 12/08/17 08:30 APTT 30.7 Seconds (25.1-36.5) 12/08/17 08:30 Attending/Attestation - Attestation I have personally seen and examined this patient.: Yes I have fully participated in the care of the patient.: Yes I have reviewed all pertinent clinical information, including history, physical exam and plan: Yes Notes (Text): 12/10/17 13:05 pt with OM of the right foot with multiple organ infections and sepsis; continue bleaching sinus tract and local care with IV antibiotics as per ID
--- NOTE | 2017-12-09 14:37 | PN ---
DATE: 12/09/2017 SUBJECTIVE: The patient is seen earlier this morning in 128 and remains intubated on a ventilator in poor condition. PHYSICAL EXAMINATION: VITAL SIGNS: Temperature of 96, blood pressure is 112/40, respiratory rate on the vent, heart rate of 86. HEENT: Reveals ET tube in place. NECK: Supple. LUNGS: Decreased breath sounds. HEART: Normal S1, S2. ABDOMEN: Soft and nontender. No organomegaly. No rebound or guarding. No masses. LABORATORY EXAMINATION: Reveals a white count of 16,000, hemoglobin of 9, platelets of 211. Chemistries reveal a BUN of 86, creatinine of 5.3. Procalcitonin is 3.18. Urinalysis is noted, immunology is noted, and serology is reviewed. Microbiology reveals the repeat blood cultures are no growth. Sputum culture is pending. Stool for C. diff is negative, antigen and toxin. The urine culture is also no growth. Review of orders reveals the patient to be on daptomycin, meropenem, Zyvox, and Solu-Cortef. The patient also had a chest x-ray this morning, improving bilateral pulmonary infiltrates. ASSESSMENT AND PLAN: This is a 72-year-old male with sensitive Staphylococcus aureus bacteremia, endocarditis, and mitral valve endocarditis with methicillin-resistant Staphylococcus aureus foot infection status post incision and drainage, now with respiratory failure, intubated on a ventilator with severe sepsis with healthcare-associated pneumonia, adult respiratory distress syndrome in a patient with diabetes, hypertension, dyslipidemia, and psoriasis. On daptomycin, Zyvox, meropenem, and Solu-Cortef. We will continue to follow closely. Jesús Hu MD
[2017-12-09] MEDS: Vasopressin 20 UNITS in Dextrose 5% In Water 100 ML IV SCH (15:17)
--- NOTE | 2017-12-09 18:45 | PN ---
DATE: SUBJECTIVE: I saw him in intensive care unit. He is still on the ventilator. I decreased his FiO2 to 60% from 100%. He is on Apresoline, aspirin, cisatracurium, Dakin's, daptomycin IV, DuoNeb, fentanyl, heparin, insulin, Lasix, Levemir, Levophed, Lipitor, Lopressor, Merrem IV, Protonix, Solu-Cortef IV, Thera-Tabs, Tylenol, vasopressin, Versed, Xopenex, and Zyvox IV. PHYSICAL EXAMINATION: VITAL SIGNS: He has a 96.8 temperature, 84 pulse, 129/61 blood pressure, 95% O2 sat on 45% end tidal CO2. HEENT: Head atraumatic, normocephalic. He is on the vent. HEART: Regular rate with decreased breath sounds. ABDOMEN: Soft, obese. EXTREMITIES: Bandaged. LABORATORY DATA: He has a 16 white count, still elevated; 9.5 hemoglobin; 30.5 hematocrit; 211 platelets. We need him to respond to the antibiotics. He has 140 sodium, potassium 4.5. BUN 86, creatinine 5.3, still elevated. He might need more dialysis, Blood sugar 258, blood sugar is elevated. Calcium is 8.8. Total bili is 0.4, AST is 66, ALT is 43, alk phos 172, total protein 6.7. ASSESSMENT AND PLAN: He is being seen by Infectious Disease, management nurse rn, material preparation worker, Pulmonary, pricer bagger. He had a chest x-ray which showed improving multifocal pulmonary alveolar infiltrate that is improving. We will check his labs tomorrow. Continue with aggressive treatment and care. Trying to get his blood sugars more normal. Patient is in very tough situation with multiple problems from acute respiratory failure to adult respiratory distress syndrome, endocarditis of the mitral valve to a foot ulcer, osteomyelitis, urinary tract infection, end-stage renal disease, possibly on dialysis. Reagan Mendez DO [facility]
[2017-12-10] MEDS: Insulin Reg-HIGH-Coverage SC SCH ×6 (01:00→20:00)
[2017-12-10] MEDS: Metoprolol 1 mg/ml Inj IVP SCH ×2 (04:00→09:25)
[2017-12-10] MEDS: Albuterol-Ipratrop 3 mg / 0.5 (3 ml) UD IH SCH ×3 (05:58→20:40)
[2017-12-10 06:36] LABS: ARTERIAL BLOOD GAS HCO3 19.2 mmol/L (21-28); ARTERIAL BLOOD GAS HEMOGLOBIN 8.5 g/dL (11.7-17.4); ARTERIAL BLOOD GAS O2 CONTENT 11.9 ML/dl (15-23); ARTERIAL BLOOD GAS O2 SAT 99.5 % (95-98); ARTERIAL BLOOD GAS PCO2 47 mm/Hg (35-45); ARTERIAL BLOOD GAS PH 7.22 (7.35-7.45); ARTERIAL BLOOD GAS TCO2 20.6 mmol.L (22-28)
[2017-12-10] MEDS: Fentanyl 1000mcg/100ml NS 1,000 MCG/100 ML BAG IV PRN ×3 (07:10→22:43)
--- NOTE | 2017-12-10 07:19 | PN ---
DATE: 12/09/2017 [facility] HOSTESS NOTE SUBJECTIVE: The patient is sedated with likes of paralyzing agent and sedative medications, on the ventilator. The FiO2 is 100% and noted that the patient has congestive heart failure and a decreased ejection fraction. The patient is on fentanyl as well as low-dose Nimbex. Also, he is on IV amiodarone. PHYSICAL EXAMINATION: VITAL SIGNS: Note that his temperature is 96.6, his pulse is 68, respirations are 20 and his BP is 135/66. SKIN: Warm and dry. HEENT: Head atraumatic, normocephalic. Eyes reactive to light. Ear, nose and throat seemed to be within normal limits. NECK: Supple. No JVD. No thyroid enlargement or lymph nodes. HEART: Has regular rate and rhythm. Normal S1, S2. LUNGS: Reveal mild rhonchi bilaterally. ABDOMEN: Soft. Decreased bowel sounds. GENITALIA: Deferred. RECTAL: Deferred. MUSCULOSKELETAL: No joint deformities. EXTREMITIES: Reveal positive lower extremity edema. NEUROLOGIC: The patient is sedated on the ventilator. LABORATORY DATA: As far as laboratories are concerned, his white count is 16, his hemoglobin is 9.5, hematocrit 30.5 with platelets of 211,000. Arterial blood gas reveals a pH of 7.28, pCO2 of 49, pO2 of 93. Sodium is 140, potassium 4.5, chloride 101, CO2 of 27 with a BUN of 86, creatinine of 5.3 and a glucose of 227. Note that his chest x-ray revealed improving multifocal pulmonary alveolar infiltrates. IMPRESSION: As far as impression is concerned, the patient has respiratory failure and has O2 saturation of 100%. The patient is noted to have severe congestive heart failure and pulmonary edema with possible pneumonia. He has osteomyelitis of the right foot and acute respiratory distress syndrome of the lungs. The patient has endocarditis with methicillin-resistant Staphylococcus aureus and acute renal failure, diabetes and hypertension as well as a respiratory acidosis. PLAN: As far as our plan, we will continue with ventilator support and decrease FiO2 as tolerated. We will continue with pulmonary toilet, DuoNeb, Levophed as well as fentanyl and low-dose Nimbex. The patient is on Lasix for appropriate diuresis, meropenem and vancomycin and we will continue to treat aggressively along with the other consultants and the primary care doctor. Harinder Oropeza MD
[2017-12-10 07:48] LABS: GRAN # 12.4 (1.4-6.5); GRAN % 88.4 % (50.0-68.0); HEMOGLOBIN 9.2 g/dL (14.0-18.0); LYMPH # 1.2 (1.2-3.4); LYMPH % 8.5 % (22.0-35.0); MEAN CELL VOLUME 90.5 fl (80.0-105.0); MEAN CORPUSCULAR HEMOGLOBIN 29.2 pg (25.0-35.0); MEAN CORPUSCULAR HGB CONC 32.3 g/dl (31.0-37.0); MEAN PLATELET VOLUME 9.6 fl (7.0-11.0); MONO # 0.4 (0.1-0.6); MONO % 3.1 % (1.0-6.0); RBC 3.15 10^6/uL (3.5-6.1); RED CELL DISTRIBUTION WIDTH 15.2 % (11.5-14.5)
[2017-12-10 08:11] LABS: ALB/GLOB RATIO 0.7 (1.1-1.8); ALBUMIN 2.6 g/dL (3.0-4.8); CALCIUM 8.3 mg/dL (8.4-10.5)
[2017-12-10] MEDS ORDERED: Insulin Detemir 100 units/ml Vial (Levemir) SC SCH (08:48)
--- NOTE | 2017-12-10 08:56 | PN ---
DATE: 12/10/2017(700am--750am) PULMONARY NOTE SUBJECTIVE: The patient remains on the ventilator. He remains sedated. PHYSICAL EXAMINATION: VITAL SIGNS: Temperature is 98.2, pulse is 91, respirations 20/20, blood pressure 146/64. HEENT: Normocephalic, atraumatic. No JVD. CARDIOVASCULAR: Systolic ejection murmur at the lower left sternal border. Questionable S3 gallop. LUNGS: Decreased breath sounds at the bases with crackles. Much less rhonchi. No wheezing. EXTREMITIES: The right foot remains wrapped. There is mild edema in both his lower extremities. There is no cyanosis or clubbing. GI: Abdomen is soft, nondistended. Bowel sounds are positive. SKIN: No acute rash. NEUROLOGIC: Limited at the present time. PERTINENT LABORATORY DATA: Chest x-ray was done this morning and reviewed. The chest x-ray done this morning-- does show a decrease in the bilateral infiltrates. Also, the left lung infiltrate appears much less dense in nature. Arterial blood gas was done on PRVC 20, tidal volume 400, FIO2 of 60%. Results are: PH 7.22, pCO2 of 47, pO2 of 134. IMPRESSION: 1. Respiratory failure. 2. Acute respiratory distress syndrome. 3. Mild bronchospasm. 4. Sepsis syndrome. 5. Renal insufficiency. 6. Mild anemia. 7. Right foot infection. 8. Mitral valve endocarditis. PLAN: The patient remains in the ICU. He remains on the ventilator. He remains sedated. I did discuss the case with the night nurse at length. The night nurse stated that the patient is doing better, and had a pretty good night. I did review the chest x-ray as above. Compared to a few days ago, the infiltrates are less in size and also less in denseness. I have also reviewed the arterial blood gas. A combined respiratory and metabolic acidosis is present. However, the alveolar-arterial gradient is much less. I will discuss the above arterial blood gas with the ICU team in the next few moments. On physical exam, there is much less bronchospasm noted. I will continue with the current nebulizer treatments for now. The patient is also on intravenous hydrocortisone. I would continue with the antibiotic coverage as per Infectious Disease. The temperatures have now fully resolved. The leukocytosis is resolving. Clinical status of the patient is definitely improved - compared to a few days ago. However, again, his overall status/prognosis does remain very guarded. Again, I will discuss the above with the entire ICU team in the next few moments. I will also discuss the above with Dr. Mendez. Baljinder Dejesus MD [facility]
[2017-12-10] MEDS: Dakin's Topical 0.5%-Full Strength (480 ml) TOP SCH (09:10)
[2017-12-10] MEDS: Multivitamin Therapeutic Tab PO SCH (09:14)
[2017-12-10] MEDS: Linezolid 600 mg in D5W 300 ml 600 MG/300 ML BAG IVPB SCH ×2 (09:14→22:19)
[2017-12-10] MEDS: Meropenem 500 MG in Sodium Chloride 0.9% 50 ML IVPB SCH ×2 (09:15→21:25)
--- NOTE | 2017-12-10 09:45 | RAD ---
Portable chest radiograph AP semi erect portable chest radiograph was obtained. Findings: The endotracheal tube terminates 3.2 cm proximal to the nabil. The nasogastric tube terminates in the stomach. Again seen is severe pulmonary venous congestion and presumable pulmonary edema. There is bibasilar airspace disease. The heart is normal in size. There are bilateral pleural effusions. Impression: No significant interval change in presumable alveolar pulmonary edema, bilateral pleural effusions and severe pulmonary venous congestion. Bibasilar airspace disease may represent compressive atelectasis however superimposed pneumonia cannot be excluded. Stable position of endotracheal and nasogastric tubes.
--- NOTE | 2017-12-10 10:03 | PN ---
DATE: 12/09/2017 PULMONARY PROGRESS NOTE SUBJECTIVE: The patient was seen and examined at bedside in Intensive Care Unit. PHYSICAL EXAMINATION VITAL SIGNS: Temperature 96, pulse 86, pulse oximetry is 95 on 60% inhaled oxygen by mechanical ventilation and his blood pressure 130/66. His intake and output are even. HEAD, EARS, NOSE, AND THROAT: Within normal limits. NECK: Supple with no jugular vein distention. CHEST: Symmetrical. CARDIOPULMONARY: S1 and S2. No S3. Irregular. LUNGS: Diminished breath sounds at both bases with crackles and a few wheezes. GASTROINTESTINAL: Soft, nontender. No organomegaly. EXTREMITIES: No pedal edema. SKIN: Dry; intact. No rashes LABORATORY DATA: I reviewed his arterial blood gases; pH was 7.28, pCO2 of 49 and pO2 of 93 on 60%. His BUN is 86, creatinine is 5.3. Glucose is elevated. Albumin is reduced to 2.7. WBCs are 16 and hemoglobin of 9.5. ASSESSMENT 1. Respiratory failure. 2. Acute respiratory distress syndrome. 3. Sepsis syndrome. 4. Renal insufficiency. 5. Right foot infection. 6. Mitral valve endocarditis. PLAN: The patient is being mechanically ventilated, he still requires high FiO2 level at 60% as well as PEEP. This will be tapered gradually. I discussed this with Dr. Harinder Oropeza, mall plant caretaker. His infection seems to be under control. Chest x-ray is pending. We will continue to closely monitor. Washington Roblero MD [facility]
--- NOTE | 2017-12-10 11:17 | CP.CCUPN ---
<Enrique Brand - Last Filed: 12/10/17 11:10> CCU Subjective - Physician Review Subjective (Free Text): Patient seen and examined at bedside. Patient intubated and paralyzed at this time. ROS unobtainable. No acute events overnight. CCU Objective - Vital Signs / Intake & Output Vital Signs (Last 4 hours): Vital Signs Temp Pulse BP Pulse Ox 12/10/17 10:00 111/56 L 12/10/17 09:59 98.4 F 87 95 12/10/17 09:30 98.4 F 88 116/58 L 95 12/10/17 09:00 98.2 F 74 118/61 96 12/10/17 08:30 98.2 F 73 124/60 96 12/10/17 08:00 98.2 F 68 114/53 L 94 L 12/10/17 07:30 98.2 F 71 118/57 L 96 Intake and Output (Last 8hrs): Intake & Output 12/09/17 12/10/17 12/10/17 22:59 06:59 14:59 Intake Total 1144 100 280 Output Total 50 Balance 1094 100 280 Intake: IV 1139 100 280 Left Upper arm 15 Right Femoral 444 Right Forearm 350 Tube Feeding 5 Output: Urine 50 Urethral (Ibrahim) 50 Other: # Bowel Movements 0 - Physical Exam Head: Positive for: Atraumatic, Normocephalic Mouth: Positive for: Moist Mucous Membranes Neck: Positive for: Normal Range of Motion Respiratory/Chest: Positive for: Decreased Breath Sounds, Rhonchi. Negative for : Respiratory Distress, Accessory Muscle Use Cardiovascular: Positive for: Murmurs, Irregular Rhythm Abdomen: Positive for: Normal Bowel Sounds. Negative for: Tenderness, Distention, Peritoneal Signs Upper Extremity: Positive for: Normal Inspection, Edema. Negative for: Cyanosis Lower Extremity: Positive for: Other (Right lower ext bandaged ) Neurological: Positive for: GCS=15, CN II-XII Intact, Speech Normal Skin: Positive for: Warm, Dry, Normal Color. Negative for: Rashes Psychiatric: Positive for: Alert, Oriented x 3, Normal Insight, Normal Concentration - Medications Active Medications: Active Medications Generic Name Dose Route Start Last Admin Trade Name Freq PRN Reason Stop Dose Admin Acetaminophen 650 mg 12/01/17 10:16 Tylenol 325mg Tab PO Q6H PRN Fever >100.4 F Albuterol/Ipratropium 3 ml 12/05/17 14:00 12/10/17 08:08 Duoneb 3 Mg/0.5 Mg (3 Ml) Ud IH 3 ml [id number] GERRY Administration Aspirin 81 mg 12/01/17 10:30 12/10/17 09:14 Aspirin Chewable PO 81 mg DAILY GERRY Administration Atorvastatin Calcium 10 mg 12/01/17 17:00 12/09/17 17:03 Lipitor PO 10 mg DIN GERRY Administration Heparin Sodium (Porcine) 5,000 units 12/04/17 22:00 12/10/17 05:10 Heparin SC 5,000 units Q8 GERRY Administration Protocol Hydralazine HCl 25 mg 12/03/17 09:28 Apresoline PO Q4 PRN Other Hydralazine HCl 10 mg 12/04/17 21:43 12/04/17 21:55 Apresoline IVP 10 mg Q6 PRN Administration SBP >150 and/or DBP >90 Hydrocortisone Sodium Succinate 50 mg 12/07/17 18:45 12/10/17 05:59 Solu-Cortef IVP 50 mg Q6H GERRY Administration Meropenem 500 mg/ Sodium 50 mls @ 100 mls/hr 12/04/17 18:51 12/10/17 09:15 Chloride IVPB 12/13/17 18:52 100 mls/hr Q12 GERRY Administration Protocol Daptomycin 690 mg/ Sodium 100 mls @ 200 mls/hr 12/06/17 10:00 12/08/17 11:50 Chloride IV 12/29/17 15:01 200 mls/hr QOTHERDAY GERRY Administration Fentanyl Citrate 1,000 mcg in 100 mls @ 2 mls/hr 12/07/17 16:39 12/10/17 09: 02 Fentanyl Citrate/Sodium Chloride 1 Mg/100 Ml IV 150 mcg/hr .Q24H PRN 15 mls/hr TITRATE PER MD ORDER Titration Protocol 20 MCG/HR Linezolid 600 mg in 300 mls @ 200 mls/hr 12/07/17 22:00 12/10/17 09:14 Zyvox 600mg/300ml D5w IVPB 12/14/17 22:01 200 mls/hr Q12 GERRY Administration Protocol Insulin Detemir 48 unit 12/10/17 08:48 Levemir SC HS GERRY Insulin Human Regular 0 units 12/08/17 16:00 12/10/17 09:14 Humulin R High SC 4 units Q4 GERRY Administration Protocol Levalbuterol HCl 0.63 mg 12/01/17 14:00 12/05/17 08:01 Xopenex IH 0.63 mg [id number] GERRY Administration Levalbuterol HCl 1.25 mg 12/01/17 10:16 12/06/17 05:35 Xopenex IH 1.25 mg [id number] PRN Administration Shortness of Breath Metoprolol Tartrate 5 mg 12/05/17 09:00 12/10/17 09:25 Lopressor IVP Not Given Q6H GERRY Metoprolol Tartrate 25 mg 12/07/17 18:00 Lopressor PO BID GERRY Midazolam HCl 4 mg 12/07/17 16:04 12/07/17 17:44 Versed Inj IVP 4 mg Q4 PRN Administration Agitation Multivitamins 1 tab 12/02/17 10:00 12/10/17 09:14 Thera Tab PO 1 tab DAILY GERRY Administration Pantoprazole Sodium 40 mg 12/08/17 10:00 12/10/17 09:13 Protonix Inj IVP 40 mg DAILY GERRY Administration Sodium Hypochlorite 0 ml 12/06/17 10:00 12/10/17 09:10 Dakins Solution 0.5% TOP Not Given DAILY [facility] - Patient Studies Lab Studies: Microbiology Studies 12/05/17 00:30 Blood Culture - Final Blood NO GROWTH AFTER 5 DAYS Gram Stain - Final TEST NOT PERFORMED 12/05/17 00:00 Blood Culture - Final Blood NO GROWTH AFTER 5 DAYS Gram Stain - Final TEST NOT PERFORMED 12/08/17 08:00 Urine Culture - Final Urine,Ibrahim No Growth (<1,000 CFU/ML) Lab Studies 12/10/17 12/10/17 12/10/17 Range/Units 07:33 07:30 07:30 WBC 14.0 H (4.5-11.0) 10^3/ul RBC 3.15 L (3.5-6.1) 10^6/uL Hgb 9.2 L (14.0-18.0) g/dL Hct 28.5 L (42.0-52.0) % MCV 90.5 (80.0-105.0) fl MCH 29.2 (25.0-35.0) pg MCHC 32.3 (31.0-37.0) g/dl RDW 15.2 H (11.5-14.5) % Plt Count 240 (120.0-450.0) 10^3/uL MPV 9.6 (7.0-11.0) fl Gran % 88.4 H (50.0-68.0) % Lymph % (Auto) 8.5 L (22.0-35.0) % [place] % (Auto) 3.1 (1.0-6.0) % Eos % (Auto) 0.0 L (1.5-5.0) % Baso % (Auto) 0.0 (0.0-3.0) % Gran # 12.40 H (1.4-6.5) Lymph # (Auto) 1.2 (1.2-3.4) [place] # (Auto) 0.4 (0.1-0.6) Eos # (Auto) 0.0 (0.0-0.7) Baso # (Auto) 0.00 (0.0-2.0) K/mm3 pCO2 (35-45) mm/Hg pO2 (80-100) mm/Hg HCO3 (21-28) mmol/L ABG pH (7.35-7.45) ABG Total CO2 (22-28) mmol.L ABG O2 Saturation (95-98) % ABG O2 Content (15-23) ML/dl ABG Base Excess (-2.0-3.0) mmol/L ABG Hemoglobin (11.7-17.4) g/dL ABG Carboxyhemoglobin (0.5-1.5) % POC ABG HHb (Measured) (0-5) % ABG Methemoglobin (0.0-3.0) % ABG O2 Capacity (16-24) mL/dl Hgb O2 Saturation (95.0-98.0) % FiO2 % Sodium 139 (132-148) mmol/L Potassium 5.1 H (3.6-5.0) mmol/L Chloride 104 (98-107) mmol/L Carbon Dioxide 22 (21-33) mmol/L Anion Gap 18 (10-20) BUN 110 H (7-21) mg/dL Creatinine 6.7 H (0.8-1.5) mg/dl Est GFR ( Amer) 10 Est GFR (Non-Af Amer) 8 POC Glucose (mg/dL) 225 H (65-110) mg/dL Random Glucose 234 H (70-110) mg/dL Calcium 8.3 L (8.4-10.5) mg/dL Total Bilirubin 0.3 (0.2-1.3) mg/dL AST 46 (17-59) U/L ALT 52 (7-56) U/L Alkaline Phosphatase 172 H (38-126) U/L Total Protein 6.4 (5.8-8.3) g/dL Albumin 2.6 L (3.0-4.8) g/dL Globulin 3.8 gm/dL Albumin/Globulin Ratio 0.7 L (1.1-1.8) 12/10/17 12/10/17 12/10/17 Range/Units 06:32 05:24 01:09 WBC (4.5-11.0) 10^3/ul RBC (3.5-6.1) 10^6/uL Hgb (14.0-18.0) g/dL Hct (42.0-52.0) % MCV (80.0-105.0) fl MCH (25.0-35.0) pg MCHC (31.0-37.0) g/dl RDW (11.5-14.5) % Plt Count (120.0-450.0) 10^3/uL MPV (7.0-11.0) fl Gran % (50.0-68.0) % Lymph % (Auto) (22.0-35.0) % [place] % (Auto) (1.0-6.0) % Eos % (Auto) (1.5-5.0) % Baso % (Auto) (0.0-3.0) % Gran # (1.4-6.5) Lymph # (Auto) (1.2-3.4) [place] # (Auto) (0.1-0.6) Eos # (Auto) (0.0-0.7) Baso # (Auto) (0.0-2.0) K/mm3 pCO2 47 H (35-45) mm/Hg pO2 134.0 H (80-100) mm/Hg HCO3 19.2 L (21-28) mmol/L ABG pH 7.22 L (7.35-7.45) ABG Total CO2 20.6 L (22-28) mmol.L ABG O2 Saturation 99.5 H (95-98) % ABG O2 Content 11.9 L (15-23) ML/dl ABG Base Excess -8.1 L (-2.0-3.0) mmol/L ABG Hemoglobin 8.5 L (11.7-17.4) g/dL ABG Carboxyhemoglobin 1.5 (0.5-1.5) % POC ABG HHb (Measured) 0.5 (0-5) % ABG Methemoglobin 1.2 (0.0-3.0) % ABG O2 Capacity 12.0 L (16-24) mL/dl Hgb O2 Saturation 96.8 (95.0-98.0) % FiO2 60.0 % Sodium (132-148) mmol/L Potassium (3.6-5.0) mmol/L Chloride (98-107) mmol/L Carbon Dioxide (21-33) mmol/L Anion Gap (10-20) BUN (7-21) mg/dL Creatinine (0.8-1.5) mg/dl Est GFR ( Amer) Est GFR (Non-Af Amer) POC Glucose (mg/dL) 227 H 229 H (65-110) mg/dL Random Glucose (70-110) mg/dL Calcium (8.4-10.5) mg/dL Total Bilirubin (0.2-1.3) mg/dL AST (17-59) U/L ALT (7-56) U/L Alkaline Phosphatase (38-126) U/L Total Protein (5.8-8.3) g/dL Albumin (3.0-4.8) g/dL Globulin gm/dL Albumin/Globulin Ratio (1.1-1.8) 12/09/17 12/09/17 12/09/17 Range/Units 20:58 16:34 12:07 WBC (4.5-11.0) 10^3/ul RBC (3.5-6.1) 10^6/uL Hgb (14.0-18.0) g/dL Hct (42.0-52.0) % MCV (80.0-105.0) fl MCH (25.0-35.0) pg MCHC (31.0-37.0) g/dl RDW (11.5-14.5) % Plt Count (120.0-450.0) 10^3/uL MPV (7.0-11.0) fl Gran % (50.0-68.0) % Lymph % (Auto) (22.0-35.0) % [place] % (Auto) (1.0-6.0) % Eos % (Auto) (1.5-5.0) % Baso % (Auto) (0.0-3.0) % Gran # (1.4-6.5) Lymph # (Auto) (1.2-3.4) [place] # (Auto) (0.1-0.6) Eos # (Auto) (0.0-0.7) Baso # (Auto) (0.0-2.0) K/mm3 pCO2 (35-45) mm/Hg pO2 (80-100) mm/Hg HCO3 (21-28) mmol/L ABG pH (7.35-7.45) ABG Total CO2 (22-28) mmol.L ABG O2 Saturation (95-98) % ABG O2 Content (15-23) ML/dl ABG Base Excess (-2.0-3.0) mmol/L ABG Hemoglobin (11.7-17.4) g/dL ABG Carboxyhemoglobin (0.5-1.5) % POC ABG HHb (Measured) (0-5) % ABG Methemoglobin (0.0-3.0) % ABG O2 Capacity (16-24) mL/dl Hgb O2 Saturation (95.0-98.0) % FiO2 % Sodium (132-148) mmol/L Potassium (3.6-5.0) mmol/L Chloride (98-107) mmol/L Carbon Dioxide (21-33) mmol/L Anion Gap (10-20) BUN (7-21) mg/dL Creatinine (0.8-1.5) mg/dl Est GFR ( Amer) Est GFR (Non-Af Amer) POC Glucose (mg/dL) 149 H 182 H 258 H (65-110) mg/dL Random Glucose (70-110) mg/dL Calcium (8.4-10.5) mg/dL Total Bilirubin (0.2-1.3) mg/dL AST (17-59) U/L ALT (7-56) U/L Alkaline Phosphatase (38-126) U/L Total Protein (5.8-8.3) g/dL Albumin (3.0-4.8) g/dL Globulin gm/dL Albumin/Globulin Ratio (1.1-1.8) Laboratory Results - last 24 hr 12/09/17 12/09/17 12/09/17 12:07 16:34 20:58 WBC RBC Hgb Hct MCV MCH MCHC RDW Plt Count MPV Gran % Lymph % (Auto) [place] % (Auto) Eos % (Auto) Baso % (Auto) Gran # Lymph # (Auto) [place] # (Auto) Eos # (Auto) Baso # (Auto) pCO2 pO2 HCO3 ABG pH ABG Total CO2 ABG O2 Saturation ABG O2 Content ABG Base Excess ABG Hemoglobin ABG Carboxyhemoglobin POC ABG HHb (Measured) ABG Methemoglobin ABG O2 Capacity Hgb O2 Saturation FiO2 Sodium Potassium Chloride Carbon Dioxide Anion Gap BUN Creatinine Est GFR ( Amer) Est GFR (Non-Af Amer) POC Glucose (mg/dL) 258 H 182 H 149 H Random Glucose Calcium Total Bilirubin AST ALT Alkaline Phosphatase Total Protein Albumin Globulin Albumin/Globulin Ratio 12/10/17 12/10/17 12/10/17 01:09 05:24 06:32 WBC RBC Hgb Hct MCV MCH MCHC RDW Plt Count MPV Gran % Lymph % (Auto) [place] % (Auto) Eos % (Auto) Baso % (Auto) Gran # Lymph # (Auto) [place] # (Auto) Eos # (Auto) Baso # (Auto) pCO2 47 H pO2 134.0 H HCO3 19.2 L ABG pH 7.22 L ABG Total CO2 20.6 L ABG O2 Saturation 99.5 H ABG O2 Content 11.9 L ABG Base Excess -8.1 L ABG Hemoglobin 8.5 L ABG Carboxyhemoglobin 1.5 POC ABG HHb (Measured) 0.5 ABG Methemoglobin 1.2 ABG O2 Capacity 12.0 L Hgb O2 Saturation 96.8 FiO2 60.0 Sodium Potassium Chloride Carbon Dioxide Anion Gap BUN Creatinine Est GFR ( Amer) Est GFR (Non-Af Amer) POC Glucose (mg/dL) 229 H 227 H Random Glucose Calcium Total Bilirubin AST ALT Alkaline Phosphatase Total Protein Albumin Globulin Albumin/Globulin Ratio 12/10/17 12/10/17 12/10/17 07:30 07:30 07:33 WBC 14.0 H RBC 3.15 L Hgb 9.2 L Hct 28.5 L MCV 90.5 MCH 29.2 MCHC 32.3 RDW 15.2 H Plt Count 240 MPV 9.6 Gran % 88.4 H Lymph % (Auto) 8.5 L [place] % (Auto) 3.1 Eos % (Auto) 0.0 L Baso % (Auto) 0.0 Gran # 12.40 H Lymph # (Auto) 1.2 [place] # (Auto) 0.4 Eos # (Auto) 0.0 Baso # (Auto) 0.00 pCO2 pO2 HCO3 ABG pH ABG Total CO2 ABG O2 Saturation ABG O2 Content ABG Base Excess ABG Hemoglobin ABG Carboxyhemoglobin POC ABG HHb (Measured) ABG Methemoglobin ABG O2 Capacity Hgb O2 Saturation FiO2 Sodium 139 Potassium 5.1 H Chloride 104 Carbon Dioxide 22 Anion Gap 18 BUN 110 H Creatinine 6.7 H Est GFR ( Amer) 10 Est GFR (Non-Af Amer) 8 POC Glucose (mg/dL) 225 H Random Glucose 234 H Calcium 8.3 L Total Bilirubin 0.3 AST 46 ALT 52 Alkaline Phosphatase 172 H Total Protein 6.4 Albumin 2.6 L Globulin 3.8 Albumin/Globulin Ratio 0.7 L Fingerstick Blood Sugar Results: 225 Critical Care Progress Note - Nutrition Nutrition: Nutrition Category Date Time Status NPO Diet [DIET] Diets 12/08/17 Breakfast Ordered Assessment/Plan - Assessment and Plan (Free Text) Plan: 72 year old male with past medical history of DM, HTN, Obesity, Mitral valve Infective Endocarditis, Osteomyelitis of right foot 2nd and 3rd toe, and ROHINI presents with MODS in the setting of ARDS, acute renal failure, osteomyelitis, and infective endocarditis. Patient has been intubated due to respiratory distress. Will stop paralytic and attempt to wean patient off of vent tomorrow. We will continue antibiotics as per ID. Neuro: Intubated Cardio: Continue abx as per ID Maintain hemodynamic stability Maintain MAP > 65 Hold Lopressor Cardiology consulted Pulm: Maintain O2 sat > 90% Intubated, paralytic stopped Will attempt to wean tomorrow Will adjust ventilator settings as per ABG GI: Protonix NPO Nephro: Klebsiella UTI Will follow nephro recommendations for further dialysis treatment Avoid nephrotoxic medications Maintain euvolemia Heme/ID: Continue abx as per ID MRSA osteomyelitis Afebrile, leukocytosis improving ID following Heparin for DVT prophylaxis Cathie, PGY-2 <Yaniv Marino - Last Filed: 12/10/17 11:56> CCU Objective - Vital Signs / Intake & Output Vital Signs (Last 4 hours): Vital Signs Temp Pulse BP Pulse Ox 12/10/17 11:49 98.8 F 12/10/17 11:30 98.8 F 79 93/41 L 94 L 12/10/17 11:00 98.6 F 86 112/55 L 95 12/10/17 10:30 98.4 F 86 107/54 L 95 12/10/17 10:00 98.4 F 87 111/56 L 95 12/10/17 09:59 98.4 F 87 95 12/10/17 09:30 98.4 F 88 116/58 L 95 12/10/17 09:00 98.2 F 74 118/61 96 12/10/17 08:30 98.2 F 73 124/60 96 12/10/17 08:00 98.2 F 68 114/53 L 94 L Intake and Output (Last 8hrs): Intake & Output 12/09/17 12/10/17 12/10/17 22:59 06:59 14:59 Intake Total 1144 100 280 Output Total 50 Balance 1094 100 280 Intake: IV 1139 100 280 Left Upper arm 15 Right Femoral 444 Right Forearm 350 Tube Feeding 5 Output: Urine 50 Urethral (Ibrahim) 50 Other: # Bowel Movements 0 - Medications Active Medications: Active Medications Generic Name Dose Route Start Last Admin Trade Name Freq PRN Reason Stop Dose Admin Acetaminophen 650 mg 12/01/17 10:16 Tylenol 325mg Tab PO Q6H PRN Fever >100.4 F Albuterol/Ipratropium 3 ml 12/05/17 14:00 12/10/17 08:08 Duoneb 3 Mg/0.5 Mg (3 Ml) Ud IH 3 ml [id number] GERRY Administration Aspirin 81 mg 12/01/17 10:30 12/10/17 09:14 Aspirin Chewable PO 81 mg DAILY GERRY Administration Atorvastatin Calcium 10 mg 12/01/17 17:00 12/09/17 17:03 Lipitor PO 10 mg DIN GERRY Administration Heparin Sodium (Porcine) 5,000 units 12/04/17 22:00 12/10/17 05:10 Heparin SC 5,000 units Q8 GERRY Administration Protocol Hydralazine HCl 25 mg 12/03/17 09:28 Apresoline PO Q4 PRN Other Hydralazine HCl 10 mg 12/04/17 21:43 12/04/17 21:55 Apresoline IVP 10 mg Q6 PRN Administration SBP >150 and/or DBP >90 Hydrocortisone Sodium Succinate 50 mg 12/07/17 18:45 12/10/17 05:59 Solu-Cortef IVP 50 mg Q6H GERRY Administration Meropenem 500 mg/ Sodium 50 mls @ 100 mls/hr 12/04/17 18:51 12/10/17 09:15 Chloride IVPB 12/13/17 18:52 100 mls/hr Q12 GERRY Administration Protocol Daptomycin 690 mg/ Sodium 100 mls @ 200 mls/hr 12/06/17 10:00 12/08/17 11:50 Chloride IV 12/29/17 15:01 200 mls/hr QOTHERDAY GERRY Administration Fentanyl Citrate 1,000 mcg in 100 mls @ 2 mls/hr 12/07/17 16:39 12/10/17 09: 02 Fentanyl Citrate/Sodium Chloride 1 Mg/100 Ml IV 150 mcg/hr .Q24H PRN 15 mls/hr TITRATE PER MD ORDER Titration Protocol 20 MCG/HR Linezolid 600 mg in 300 mls @ 200 mls/hr 12/07/17 22:00 12/10/17 09:14 Zyvox 600mg/300ml D5w IVPB 12/14/17 22:01 200 mls/hr Q12 GERRY Administration Protocol Insulin Detemir 48 unit 12/10/17 08:48 Levemir SC HS [facility] Insulin Human Regular 0 units 12/08/17 16:00 12/10/17 09:14 Humulin R High SC 4 units Q4 GERRY Administration Protocol Levalbuterol HCl 0.63 mg 12/01/17 14:00 12/05/17 08:01 Xopenex IH 0.63 mg [id number] GERRY Administration Levalbuterol HCl 1.25 mg 12/01/17 10:16 12/06/17 05:35 Xopenex IH 1.25 mg [id number] PRN Administration Shortness of Breath Metoprolol Tartrate 5 mg 12/05/17 09:00 12/10/17 09:25 Lopressor IVP Not Given Q6H GERRY Metoprolol Tartrate 25 mg 12/07/17 18:00 Lopressor PO BID GERRY Midazolam HCl 4 mg 12/07/17 16:04 12/07/17 17:44 Versed Inj IVP 4 mg Q4 PRN Administration Agitation Multivitamins 1 tab 12/02/17 10:00 12/10/17 09:14 Thera Tab PO 1 tab DAILY GERRY Administration Pantoprazole Sodium 40 mg 12/08/17 10:00 12/10/17 09:13 Protonix Inj IVP 40 mg DAILY GERRY Administration Sodium Hypochlorite 0 ml 12/06/17 10:00 12/10/17 09:10 Dakins Solution 0.5% TOP Not Given DAILY GERRY - Patient Studies Lab Studies: Microbiology Studies 12/05/17 00:30 Blood Culture - Final Blood NO GROWTH AFTER 5 DAYS Gram Stain - Final TEST NOT PERFORMED 12/05/17 00:00 Blood Culture - Final Blood NO GROWTH AFTER 5 DAYS Gram Stain - Final TEST NOT PERFORMED 12/08/17 08:00 Urine Culture - Final Urine,Ibrahim No Growth (<1,000 CFU/ML) Lab Studies 12/10/17 12/10/17 12/10/17 Range/Units 07:33 07:30 07:30 WBC 14.0 H (4.5-11.0) 10^3/ul RBC 3.15 L (3.5-6.1) 10^6/uL Hgb 9.2 L (14.0-18.0) g/dL Hct 28.5 L (42.0-52.0) % MCV 90.5 (80.0-105.0) fl MCH 29.2 (25.0-35.0) pg MCHC 32.3 (31.0-37.0) g/dl RDW 15.2 H (11.5-14.5) % Plt Count 240 (120.0-450.0) 10^3/uL MPV 9.6 (7.0-11.0) fl Gran % 88.4 H (50.0-68.0) % Lymph % (Auto) 8.5 L (22.0-35.0) % [place] % (Auto) 3.1 (1.0-6.0) % Eos % (Auto) 0.0 L (1.5-5.0) % Baso % (Auto) 0.0 (0.0-3.0) % Gran # 12.40 H (1.4-6.5) Lymph # (Auto) 1.2 (1.2-3.4) [place] # (Auto) 0.4 (0.1-0.6) Eos # (Auto) 0.0 (0.0-0.7) Baso # (Auto) 0.00 (0.0-2.0) K/mm3 pCO2 (35-45) mm/Hg pO2 (80-100) mm/Hg HCO3 (21-28) mmol/L ABG pH (7.35-7.45) ABG Total CO2 (22-28) mmol.L ABG O2 Saturation (95-98) % ABG O2 Content (15-23) ML/dl ABG Base Excess (-2.0-3.0) mmol/L ABG Hemoglobin (11.7-17.4) g/dL ABG Carboxyhemoglobin (0.5-1.5) % POC ABG HHb (Measured) (0-5) % ABG Methemoglobin (0.0-3.0) % ABG O2 Capacity (16-24) mL/dl Hgb O2 Saturation (95.0-98.0) % FiO2 % Sodium 139 (132-148) mmol/L Potassium 5.1 H (3.6-5.0) mmol/L Chloride 104 (98-107) mmol/L Carbon Dioxide 22 (21-33) mmol/L Anion Gap 18 (10-20) BUN 110 H (7-21) mg/dL Creatinine 6.7 H (0.8-1.5) mg/dl Est GFR ( Amer) 10 Est GFR (Non-Af Amer) 8 POC Glucose (mg/dL) 225 H (65-110) mg/dL Random Glucose 234 H (70-110) mg/dL Calcium 8.3 L (8.4-10.5) mg/dL Total Bilirubin 0.3 (0.2-1.3) mg/dL AST 46 (17-59) U/L ALT 52 (7-56) U/L Alkaline Phosphatase 172 H (38-126) U/L Total Protein 6.4 (5.8-8.3) g/dL Albumin 2.6 L (3.0-4.8) g/dL Globulin 3.8 gm/dL Albumin/Globulin Ratio 0.7 L (1.1-1.8) 12/10/17 12/10/17 12/10/17 Range/Units 06:32 05:24 01:09 WBC (4.5-11.0) 10^3/ul RBC (3.5-6.1) 10^6/uL Hgb (14.0-18.0) g/dL Hct (42.0-52.0) % MCV (80.0-105.0) fl MCH (25.0-35.0) pg MCHC (31.0-37.0) g/dl RDW (11.5-14.5) % Plt Count (120.0-450.0) 10^3/uL MPV (7.0-11.0) fl Gran % (50.0-68.0) % Lymph % (Auto) (22.0-35.0) % [place] % (Auto) (1.0-6.0) % Eos % (Auto) (1.5-5.0) % Baso % (Auto) (0.0-3.0) % Gran # (1.4-6.5) Lymph # (Auto) (1.2-3.4) [place] # (Auto) (0.1-0.6) Eos # (Auto) (0.0-0.7) Baso # (Auto) (0.0-2.0) K/mm3 pCO2 47 H (35-45) mm/Hg pO2 134.0 H (80-100) mm/Hg HCO3 19.2 L (21-28) mmol/L ABG pH 7.22 L (7.35-7.45) ABG Total CO2 20.6 L (22-28) mmol.L ABG O2 Saturation 99.5 H (95-98) % ABG O2 Content 11.9 L (15-23) ML/dl ABG Base Excess -8.1 L (-2.0-3.0) mmol/L ABG Hemoglobin 8.5 L (11.7-17.4) g/dL ABG Carboxyhemoglobin 1.5 (0.5-1.5) % POC ABG HHb (Measured) 0.5 (0-5) % ABG Methemoglobin 1.2 (0.0-3.0) % ABG O2 Capacity 12.0 L (16-24) mL/dl Hgb O2 Saturation 96.8 (95.0-98.0) % FiO2 60.0 % Sodium (132-148) mmol/L Potassium (3.6-5.0) mmol/L Chloride (98-107) mmol/L Carbon Dioxide (21-33) mmol/L Anion Gap (10-20) BUN (7-21) mg/dL Creatinine (0.8-1.5) mg/dl Est GFR ( Amer) Est GFR (Non-Af Amer) POC Glucose (mg/dL) 227 H 229 H (65-110) mg/dL Random Glucose (70-110) mg/dL Calcium (8.4-10.5) mg/dL Total Bilirubin (0.2-1.3) mg/dL AST (17-59) U/L ALT (7-56) U/L Alkaline Phosphatase (38-126) U/L Total Protein (5.8-8.3) g/dL Albumin (3.0-4.8) g/dL Globulin gm/dL Albumin/Globulin Ratio (1.1-1.8) 12/09/17 12/09/17 12/09/17 Range/Units 20:58 16:34 12:07 WBC (4.5-11.0) 10^3/ul RBC (3.5-6.1) 10^6/uL Hgb (14.0-18.0) g/dL Hct (42.0-52.0) % MCV (80.0-105.0) fl MCH (25.0-35.0) pg MCHC (31.0-37.0) g/dl RDW (11.5-14.5) % Plt Count (120.0-450.0) 10^3/uL MPV (7.0-11.0) fl Gran % (50.0-68.0) % Lymph % (Auto) (22.0-35.0) % [place] % (Auto) (1.0-6.0) % Eos % (Auto) (1.5-5.0) % Baso % (Auto) (0.0-3.0) % Gran # (1.4-6.5) Lymph # (Auto) (1.2-3.4) [place] # (Auto) (0.1-0.6) Eos # (Auto) (0.0-0.7) Baso # (Auto) (0.0-2.0) K/mm3 pCO2 (35-45) mm/Hg pO2 (80-100) mm/Hg HCO3 (21-28) mmol/L ABG pH (7.35-7.45) ABG Total CO2 (22-28) mmol.L ABG O2 Saturation (95-98) % ABG O2 Content (15-23) ML/dl ABG Base Excess (-2.0-3.0) mmol/L ABG Hemoglobin (11.7-17.4) g/dL ABG Carboxyhemoglobin (0.5-1.5) % POC ABG HHb (Measured) (0-5) % ABG Methemoglobin (0.0-3.0) % ABG O2 Capacity (16-24) mL/dl Hgb O2 Saturation (95.0-98.0) % FiO2 % Sodium (132-148) mmol/L Potassium (3.6-5.0) mmol/L Chloride (98-107) mmol/L Carbon Dioxide (21-33) mmol/L Anion Gap (10-20) BUN (7-21) mg/dL Creatinine (0.8-1.5) mg/dl Est GFR ( Amer) Est GFR (Non-Af Amer) POC Glucose (mg/dL) 149 H 182 H 258 H (65-110) mg/dL Random Glucose (70-110) mg/dL Calcium (8.4-10.5) mg/dL Total Bilirubin (0.2-1.3) mg/dL AST (17-59) U/L ALT (7-56) U/L Alkaline Phosphatase (38-126) U/L Total Protein (5.8-8.3) g/dL Albumin (3.0-4.8) g/dL Globulin gm/dL Albumin/Globulin Ratio (1.1-1.8) Laboratory Results - last 24 hr 12/09/17 12/09/17 12/09/17 12:07 16:34 20:58 WBC RBC Hgb Hct MCV MCH MCHC RDW Plt Count MPV Gran % Lymph % (Auto) [place] % (Auto) Eos % (Auto) Baso % (Auto) Gran # Lymph # (Auto) [place] # (Auto) Eos # (Auto) Baso # (Auto) pCO2 pO2 HCO3 ABG pH ABG Total CO2 ABG O2 Saturation ABG O2 Content ABG Base Excess ABG Hemoglobin ABG Carboxyhemoglobin POC ABG HHb (Measured) ABG Methemoglobin ABG O2 Capacity Hgb O2 Saturation FiO2 Sodium Potassium Chloride Carbon Dioxide Anion Gap BUN Creatinine Est GFR ( Amer) Est GFR (Non-Af Amer) POC Glucose (mg/dL) 258 H 182 H 149 H Random Glucose Calcium Total Bilirubin AST ALT Alkaline Phosphatase Total Protein Albumin Globulin Albumin/Globulin Ratio 12/10/17 12/10/17 12/10/17 01:09 05:24 06:32 WBC RBC Hgb Hct MCV MCH MCHC RDW Plt Count MPV Gran % Lymph % (Auto) [place] % (Auto) Eos % (Auto) Baso % (Auto) Gran # Lymph # (Auto) [place] # (Auto) Eos # (Auto) Baso # (Auto) pCO2 47 H pO2 134.0 H HCO3 19.2 L ABG pH 7.22 L ABG Total CO2 20.6 L ABG O2 Saturation 99.5 H ABG O2 Content 11.9 L ABG Base Excess -8.1 L ABG Hemoglobin 8.5 L ABG Carboxyhemoglobin 1.5 POC ABG HHb (Measured) 0.5 ABG Methemoglobin 1.2 ABG O2 Capacity 12.0 L Hgb O2 Saturation 96.8 FiO2 60.0 Sodium Potassium Chloride Carbon Dioxide Anion Gap BUN Creatinine Est GFR ( Amer) Est GFR (Non-Af Amer) POC Glucose (mg/dL) 229 H 227 H Random Glucose Calcium Total Bilirubin AST ALT Alkaline Phosphatase Total Protein Albumin Globulin Albumin/Globulin Ratio 12/10/17 12/10/17 12/10/17 07:30 07:30 07:33 WBC 14.0 H RBC 3.15 L Hgb 9.2 L Hct 28.5 L MCV 90.5 MCH 29.2 MCHC 32.3 RDW 15.2 H Plt Count 240 MPV 9.6 Gran % 88.4 H Lymph % (Auto) 8.5 L [place] % (Auto) 3.1 Eos % (Auto) 0.0 L Baso % (Auto) 0.0 Gran # 12.40 H Lymph # (Auto) 1.2 [place] # (Auto) 0.4 Eos # (Auto) 0.0 Baso # (Auto) 0.00 pCO2 pO2 HCO3 ABG pH ABG Total CO2 ABG O2 Saturation ABG O2 Content ABG Base Excess ABG Hemoglobin ABG Carboxyhemoglobin POC ABG HHb (Measured) ABG Methemoglobin ABG O2 Capacity Hgb O2 Saturation FiO2 Sodium 139 Potassium 5.1 H Chloride 104 Carbon Dioxide 22 Anion Gap 18 BUN 110 H Creatinine 6.7 H Est GFR ( Amer) 10 Est GFR (Non-Af Amer) 8 POC Glucose (mg/dL) 225 H Random Glucose 234 H Calcium 8.3 L Total Bilirubin 0.3 AST 46 ALT 52 Alkaline Phosphatase 172 H Total Protein 6.4 Albumin 2.6 L Globulin 3.8 Albumin/Globulin Ratio 0.7 L Critical Care Progress Note - Nutrition Nutrition: Nutrition Category Date Time Status NPO Diet [DIET] Diets 12/08/17 Breakfast Ordered Assessment/Plan - Assessment and Plan (Free Text) Plan: Patient seen and examined, on rounds with resident, agree with note with following additions/exceptions: Patient is 72yo male with PMHx DM, HTN, Mitral valve IE, Obesity, Osteo, ROHINI, presented with multi orgran failure, in setting of ARF, ARDS. Currently the patient is intubated sedated, off paralytics, on PEEP 10, FiO2 60%, weaning FiO2 down. Opening eyes, not following commands, moving all 4 ext. Overall oxygenation much improved. ARDS Hypoxic resp failure UTI ESRD on HD Oste DM Recommend: - cont with vent support, low tidal vol ventilation, keep plateau<30, daily ABG , CXR, wean down FiO2 - broad spectrum antibiotics, as per ID - BP control - HD as per renal - HOLD BP meds for now - monitor HH - FS control - keep NPO for now - follow up renal - follow up ID - GI ppx - DVT ppx, HSQ - Monitor in MICU Critical care time 35 minutes
--- NOTE | 2017-12-10 13:00 | CP.PCM.PN ---
<Andrea Khan - Last Filed: 12/10/17 12:57> Subjective - Date & Time of Evaluation Date of Evaluation: 12/10/17 Time of Evaluation: 12:57 - Subjective Subjective: Podiatry Progress Note - Dr. Baron 72 y/o male seen and examined at bedside this morning in ICU, 14 days s/p debridement of right foot diabetic ulceration with sinus tract and underlying OM. Patient remains intubated and sedated at time of visit. Dressing clean/dry/ intact to RLE with multipodus boots present bilaterally. Daughter present at bedside. Objective - Vital Signs/Intake and Output Vital Signs (last 24 hours): Temp Pulse Resp BP Pulse Ox 98.8 F 79 20 93/41 L 94 L 12/10/17 11:49 12/10/17 11:30 12/10/17 04:35 12/10/17 11:30 12/10/17 11:30 Intake and Output: 12/10/17 12/10/17 06:59 18:59 Intake Total 430 280 Balance 430 280 - Medications Medications: Current Medications Acetaminophen (Tylenol 325mg Tab) 650 mg PO Q6H PRN PRN Reason: Fever >100.4 F Albuterol/Ipratropium (Duoneb 3 Mg/0.5 Mg (3 Ml) Ud) 3 ml IH [id number] [facility] Last Admin: 12/10/17 08:08 Dose: 3 ml Aspirin (Aspirin Chewable) 81 mg PO DAILY [facility] Last Admin: 12/10/17 09:14 Dose: 81 mg Atorvastatin Calcium (Lipitor) 10 mg PO DIN [facility] Last Admin: 12/09/17 17:03 Dose: 10 mg Heparin Sodium (Porcine) (Heparin) 5,000 units SC Q8 [facility] PRN Reason: Protocol Last Admin: 12/10/17 05:10 Dose: 5,000 units Hydralazine HCl (Apresoline) 25 mg PO Q4 PRN PRN Reason: Other Hydralazine HCl (Apresoline) 10 mg IVP Q6 PRN PRN Reason: SBP >150 and/or DBP >90 Last Admin: 12/04/17 21:55 Dose: 10 mg Hydrocortisone Sodium Succinate (Solu-Cortef) 50 mg IVP Q6H [facility] Last Admin: 12/10/17 05:59 Dose: 50 mg Meropenem 500 mg/ Sodium (Chloride) 50 mls @ 100 mls/hr IVPB Q12 [facility] PRN Reason: Protocol Stop: 12/13/17 18:52 Last Admin: 12/10/17 09:15 Dose: 100 mls/hr Daptomycin 690 mg/ Sodium (Chloride) 100 mls @ 200 mls/hr IV QOTHERDAY [facility] Stop: 12/29/17 15:01 Last Admin: 12/10/17 12:33 Dose: 200 mls/hr Fentanyl Citrate (Fentanyl Citrate/Sodium Chloride 1 Mg/100 Ml) 1,000 mcg in 100 mls @ 2 mls/hr IV .Q24H PRN; Protocol; 20 MCG/HR PRN Reason: TITRATE PER MD ORDER Last Titration: 12/10/17 09:02 Dose: 150 mcg/hr, 15 mls/hr Linezolid (Zyvox 600mg/300ml D5w) 600 mg in 300 mls @ 200 mls/hr IVPB Q12 [facility] PRN Reason: Protocol Stop: 12/14/17 22:01 Last Admin: 12/10/17 09:14 Dose: 200 mls/hr Insulin Detemir (Levemir) 48 unit SC HS [facility] Insulin Human Regular (Humulin R High) 0 units SC Q4 GERRY PRN Reason: Protocol Last Admin: 12/10/17 12:31 Dose: 4 units Levalbuterol HCl (Xopenex) 0.63 mg IH [id number] [facility] Last Admin: 12/05/17 08:01 Dose: 0.63 mg Levalbuterol HCl (Xopenex) 1.25 mg IH [id number] PRN PRN Reason: Shortness of Breath Last Admin: 12/06/17 05:35 Dose: 1.25 mg Metoprolol Tartrate (Lopressor) 5 mg IVP Q6H [facility] Last Admin: 12/10/17 09:25 Dose: Not Given Metoprolol Tartrate (Lopressor) 25 mg PO BID [facility] Midazolam HCl (Versed Inj) 4 mg IVP Q4 PRN PRN Reason: Agitation Last Admin: 12/07/17 17:44 Dose: 4 mg Multivitamins (Thera Tab) 1 tab PO DAILY [facility] Last Admin: 12/10/17 09:14 Dose: 1 tab Pantoprazole Sodium (Protonix Inj) 40 mg IVP DAILY [facility] Last Admin: 12/10/17 09:13 Dose: 40 mg Sodium Hypochlorite (Dakins Solution 0.5%) 0 ml TOP DAILY [facility] Last Admin: 12/10/17 09:10 Dose: Not Given - Labs Labs: 12/10/17 07:30 12/10/17 07:30 PT 12.7 SECONDS (9.4-12.5) H 12/08/17 08:30 INR 1.10 (0.93-1.08) H 12/08/17 08:30 APTT 30.7 Seconds (25.1-36.5) 12/08/17 08:30 - Constitutional Appears: Non-toxic, No Acute Distress, Chronically Ill - Extremities Exam Additional comments: RLE focused exam: Vasc: DP and PT non-palpable, temperature gradient is warm to cool from proximal to distal, Cap refill time: < 3 seconds to all digits, moderate non- pitting edema noted to the right forefoot Derm: Two surgical incisions: Mild anguinous drainage noted to dressing. #1 longitudinal surgical incision noted to the plantar aspect of the sub metatarsal 2 measuring approximately 4 x .3 cm and #2 surgical incision measuring approximately 2 cm x .3 cm on the dorsum of the foot at the level of the 2nd metatarsal head. Incisions connect forming a tunnel through the forefoot. Wound base is 100% granular with minimal sanguinous drainage when expressed, no fluctuance noted, no purulence, no active bleeding, no malodor, no tunneling but tracking present to the plantar surgical incision from the dorsal incision. (+) probe to bone down to both 2nd and 3rd metatarsals. no clinical suspicion of active infection at this time. Neuro: gross and protective sensation diminished Ortho: no pain with palpation to ulceration site, previous healed hallux amputation - Neurological Exam Neurological Exam: Awake - Psychiatric Exam Psychiatric exam: Normal Mood Assessment and Plan - Assessment and Plan (Free Text) Assessment: 72 y/o male 14 days s/p debridement of right foot diabetic ulceration with sinus tract Plan: Patient seen and evaluated at bedside alongside attending, Dr. Baron Afebrile, WBC trending downwards 14.0 MRI of foot reviewed: possible OM of the 2nd and 3rd metatarsals and proximal phalanges Continue abx per ID - Daptomycin, Linezolid, Meropenem Continue local wound care - Dakin's cleanse, /" iodoform packing, DSD Continue multipodus boots at all times while in bed At this time, TMA is clinically indicated due to osteomyelitis of 2nd and 3rd mets and proximal phalanges with (+) probe to bone -Will hold off on surgical intervention as patient is not a stable candidate at this time Podiatry to continue to follow patient while in house <Eileen Baron - Last Filed: 12/10/17 14:30> Objective - Vital Signs/Intake and Output Vital Signs (last 24 hours): Temp Pulse Resp BP Pulse Ox 98.6 F 75 20 97/41 L 93 L 12/10/17 13:00 12/10/17 13:00 12/10/17 04:35 12/10/17 13:00 12/10/17 13:00 Intake and Output: 12/10/17 12/10/17 06:59 18:59 Intake Total 430 345 Balance 430 345 - Medications Medications: Current Medications Acetaminophen (Tylenol 325mg Tab) 650 mg PO Q6H PRN PRN Reason: Fever >100.4 F Albuterol/Ipratropium (Duoneb 3 Mg/0.5 Mg (3 Ml) Ud) 3 ml IH [id number] [facility] Last Admin: 12/10/17 08:08 Dose: 3 ml Aspirin (Aspirin Chewable) 81 mg PO DAILY [facility] Last Admin: 12/10/17 09:14 Dose: 81 mg Atorvastatin Calcium (Lipitor) 10 mg PO DIN [facility] Last Admin: 12/09/17 17:03 Dose: 10 mg Heparin Sodium (Porcine) (Heparin) 5,000 units SC Q8 GERRY PRN Reason: Protocol Last Admin: 12/10/17 13:23 Dose: 5,000 units Hydralazine HCl (Apresoline) 25 mg PO Q4 PRN PRN Reason: Other Hydralazine HCl (Apresoline) 10 mg IVP Q6 PRN PRN Reason: SBP >150 and/or DBP >90 Last Admin: 12/04/17 21:55 Dose: 10 mg Hydrocortisone Sodium Succinate (Solu-Cortef) 50 mg IVP Q6H [facility] Last Admin: 12/10/17 13:22 Dose: 50 mg Meropenem 500 mg/ Sodium (Chloride) 50 mls @ 100 mls/hr IVPB Q12 [facility]Y PRN Reason: Protocol Stop: 12/13/17 18:52 Last Admin: 12/10/17 09:15 Dose: 100 mls/hr Daptomycin 690 mg/ Sodium (Chloride) 100 mls @ 200 mls/hr IV QOTHERDAY [facility] Stop: 12/29/17 15:01 Last Admin: 12/10/17 12:33 Dose: 200 mls/hr Fentanyl Citrate (Fentanyl Citrate/Sodium Chloride 1 Mg/100 Ml) 1,000 mcg in 100 mls @ 2 mls/hr IV .Q24H PRN; Protocol; 20 MCG/HR PRN Reason: TITRATE PER MD ORDER Last Titration: 12/10/17 13:55 Dose: 150 mcg/hr, 15 mls/hr Linezolid (Zyvox 600mg/300ml D5w) 600 mg in 300 mls @ 200 mls/hr IVPB Q12 [facility] PRN Reason: Protocol Stop: 12/14/17 22:01 Last Admin: 12/10/17 09:14 Dose: 200 mls/hr Insulin Detemir (Levemir) 48 unit SC HS [facility] Insulin Human Regular (Humulin R High) 0 units SC Q4 GERRY PRN Reason: Protocol Last Admin: 12/10/17 12:31 Dose: 4 units Levalbuterol HCl (Xopenex) 0.63 mg IH [id number] [facility] Last Admin: 12/05/17 08:01 Dose: 0.63 mg Levalbuterol HCl (Xopenex) 1.25 mg IH [id number] PRN PRN Reason: Shortness of Breath Last Admin: 12/06/17 05:35 Dose: 1.25 mg Metoprolol Tartrate (Lopressor) 5 mg IVP Q6H [facility] Last Admin: 12/10/17 09:25 Dose: Not Given Metoprolol Tartrate (Lopressor) 25 mg PO BID [facility] Midazolam HCl (Versed Inj) 4 mg IVP Q4 PRN PRN Reason: Agitation Last Admin: 12/07/17 17:44 Dose: 4 mg Multivitamins (Thera Tab) 1 tab PO DAILY [facility] Last Admin: 12/10/17 09:14 Dose: 1 tab Pantoprazole Sodium (Protonix Inj) 40 mg IVP DAILY [facility] Last Admin: 12/10/17 09:13 Dose: 40 mg Sodium Hypochlorite (Dakins Solution 0.5%) 0 ml TOP DAILY [facility] Last Admin: 12/10/17 09:10 Dose: Not Given - Labs Labs: 12/10/17 07:30 12/10/17 07:30 PT 12.7 SECONDS (9.4-12.5) H 12/08/17 08:30 INR 1.10 (0.93-1.08) H 12/08/17 08:30 APTT 30.7 Seconds (25.1-36.5) 12/08/17 08:30 Attending/Attestation - Attestation I have personally seen and examined this patient.: Yes I have fully participated in the care of the patient.: Yes I have reviewed all pertinent clinical information, including history, physical exam and plan: Yes Notes (Text): 12/10/17 14:29 pt seen intubated - daughter at bedside - discussed with daughter the possible TMA and she stated anything that would make her father better is OK with the family; since the foot is stable and is not red warm or fluctuance - we will wait until pt is better hemodynamically controlled before any surgeru is done
--- NOTE | 2017-12-10 13:45 | PN ---
DATE: SUBJECTIVE: He is on the ventilator still, he is sedated. He is in intensive care unit. He is on Apresoline, aspirin, cisatracurium, Dakin's solution, daptomycin IV, DuoNeb, fentanyl, heparin, Levemir, Levophed, Lipitor, Lopressor, Merrem IV, Protonix, Solu-Cortef lowered to 50 every 6 hours, Thera-Tabs, Tylenol, vasopressin, Dextrose, Versed, Xopenex, and Zyvox IV. PHYSICAL EXAMINATION: VITAL SIGNS: He has a 98.2 temperature, 68 pulse, 114/53 blood pressure, 94% O2 sat and 47% end-tidal CO2. HEENT: Head: Atraumatic, normocephalic. HEART: Regular rate. LUNGS: Decreased breath sounds. ABDOMEN: Soft, obese. EXTREMITIES: No edema. LABORATORY DATA: He has a 14 white count, 9.2 hemoglobin, 28.5 hematocrit with 240 platelets. He has 139 sodium, potassium 5.1, BUN 110, creatinine 6.7. He will need to have dialysis. GFR is 8. Blood sugar is 225. I will try tightening up the diabetes. Calcium is 8.3. AST is 46, ALT is 62, alkaline phosphatase 172, total protein 6.4. ASSESSMENT AND PLAN: He is having a very rough acute respiratory failure, end-stage renal disease, foot ulcer, endocarditis of the mitral valve, urinary tract infection, diabetes. He is on Levemir 45. I am going to increase his Levemir to 50 as his blood sugar is well over 200 at least the last 3 were. 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 I have been discussing this with the family. Reagan Mendez DO MTDMarisela
--- NOTE | 2017-12-10 14:36 | CP.PCM.PN ---
Subjective - Date & Time of Evaluation Date of Evaluation: 12/10/17 Time of Evaluation: 14:33 - Subjective Subjective: Nephrology Consultation Note: Assessment: critical acute hypoxic respi failure with fluid overload/CHF pattern/pulm edema And ARDS status post right heart oligoanuric Acute Kidney Injury (N17.9) likely due to sepsis, wound infection>> leading to ATN, possible AIN due to Abx/infection But urine eos negative DM, HTN (I12.0) active cigar smoker, obesity toe osteomyelitis with sepsis, Mitral valve infective endocarditis Plan Patient has received ultrafiltration 2 and HD sunday. will plan for HD today as ordered maintain hemodynamics stable. hold ACEI/ARB due to ROHINI. hold [employer] Monitor Input/Output, daily weights and renal function with basic metabolic panel Dose meds/antibiotics for reduced GFR/HD status. Avoid fleets enema/magnesium based laxatives. Avoid nephrotoxins/NSAIDs/ iodinated contrast (unless needed emergently) Glycemic control Further work up/management as per primary team Thanks for allowing me to participate in care of your patient. Will follow patient with you. Please call if any Qs. d/w team Dr Caden Muller Office: [phone] HPI: Pt is a 72 M with hx of diabetes Mellitus (9 years), hypertension (years) , active cigar smoker, obesity and Rt foot infection, recent ROHINI (peaked cr 2.1 ) presented with complaints of Rt foot wound infection. renal consult for ROHINI eval. his cr 1.1 in 2017 and at d/c last hospitalization Denies OTC/herbal meds or NSAIDs No recent iodinated contrast exposure. episodes of low BP noted. ROS: Patient is sedated Physical Examination: General Appearance: intubated. obese. ill appearing. Vitals reviewed and noted as below Head; Atraumatic, normocephalic ENT: orally intubated EYES: Pupils are equal, round and reactive to light accommodation. Sclera is anicteric. Neck; supple no lymphadenopathy, no thyromegaly or bruit Lungs: normal respiratory rate/effort. Breath sounds bilateral clear anteriorly Heart: Normal rate. s1s2 normal. No rub or gallop. Extremities: Rt pedal edema. No varicose veins. Rt foot dressed. Neurological: Patient is sedated Skin: Warm and dry. Normal turgor. chronic psoriasis rash. Palpitation: Normal elasticity for age. Abdomen: Abdomen is soft. Bowel sounds +. There is no abdominal tenderness, no guarding/rigidity no organomegaly Psych: Unable MSK: no joint tenderness or swelling. Digits and nails normal, no deformity : kidney or bladder not palpable. has aquino Labs/imaging reviewed. Past medical history, past surgical history, family history, social history, allergy reviewed and noted as below Family hx: no hx of CKD. Rest non-contributory workup: renal SONO: WNL UA large blood Objective - Vital Signs/Intake and Output Vital Signs (last 24 hours): Temp Pulse Resp BP Pulse Ox 98.6 F 76 20 120/56 L 95 12/10/17 14:29 12/10/17 13:30 12/10/17 04:35 12/10/17 14:30 12/10/17 14:29 Intake and Output: 12/10/17 12/10/17 06:59 18:59 Intake Total 430 345 Balance 430 345 - Medications Medications: Current Medications Acetaminophen (Tylenol 325mg Tab) 650 mg PO Q6H PRN PRN Reason: Fever >100.4 F Albuterol/Ipratropium (Duoneb 3 Mg/0.5 Mg (3 Ml) Ud) 3 ml IH [id number] [facility] Last Admin: 12/10/17 08:08 Dose: 3 ml Aspirin (Aspirin Chewable) 81 mg PO DAILY [facility] Last Admin: 12/10/17 09:14 Dose: 81 mg Atorvastatin Calcium (Lipitor) 10 mg PO DIN [facility] Last Admin: 12/09/17 17:03 Dose: 10 mg Heparin Sodium (Porcine) (Heparin) 5,000 units SC Q8 [facility]ERRY PRN Reason: Protocol Last Admin: 12/10/17 13:23 Dose: 5,000 units Hydralazine HCl (Apresoline) 25 mg PO Q4 PRN PRN Reason: Other Hydralazine HCl (Apresoline) 10 mg IVP Q6 PRN PRN Reason: SBP >150 and/or DBP >90 Last Admin: 12/04/17 21:55 Dose: 10 mg Hydrocortisone Sodium Succinate (Solu-Cortef) 50 mg IVP Q6H [facility] Last Admin: 12/10/17 13:22 Dose: 50 mg Meropenem 500 mg/ Sodium (Chloride) 50 mls @ 100 mls/hr IVPB Q12 [facility] PRN Reason: Protocol Stop: 12/13/17 18:52 Last Admin: 12/10/17 09:15 Dose: 100 mls/hr Daptomycin 690 mg/ Sodium (Chloride) 100 mls @ 200 mls/hr IV QOTHERDAY [facility] Stop: 12/29/17 15:01 Last Admin: 12/10/17 12:33 Dose: 200 mls/hr Fentanyl Citrate (Fentanyl Citrate/Sodium Chloride 1 Mg/100 Ml) 1,000 mcg in 100 mls @ 2 mls/hr IV .Q24H PRN; Protocol; 20 MCG/HR PRN Reason: TITRATE PER MD ORDER Last Titration: 12/10/17 13:55 Dose: 150 mcg/hr, 15 mls/hr Linezolid (Zyvox 600mg/300ml D5w) 600 mg in 300 mls @ 200 mls/hr IVPB Q12 [facility] PRN Reason: Protocol Stop: 12/14/17 22:01 Last Admin: 12/10/17 09:14 Dose: 200 mls/hr Insulin Detemir (Levemir) 48 unit SC HS [facility] Insulin Human Regular (Humulin R High) 0 units SC Q4 [facility] PRN Reason: Protocol Last Admin: 12/10/17 12:31 Dose: 4 units Levalbuterol HCl (Xopenex) 0.63 mg IH [id number] [facility] Last Admin: 12/05/17 08:01 Dose: 0.63 mg Levalbuterol HCl (Xopenex) 1.25 mg IH [id number] PRN PRN Reason: Shortness of Breath Last Admin: 12/06/17 05:35 Dose: 1.25 mg Metoprolol Tartrate (Lopressor) 5 mg IVP Q6H [facility] Last Admin: 12/10/17 09:25 Dose: Not Given Metoprolol Tartrate (Lopressor) 25 mg PO BID [facility] Midazolam HCl (Versed Inj) 4 mg IVP Q4 PRN PRN Reason: Agitation Last Admin: 12/07/17 17:44 Dose: 4 mg Multivitamins (Thera Tab) 1 tab PO DAILY [facility] Last Admin: 12/10/17 09:14 Dose: 1 tab Pantoprazole Sodium (Protonix Inj) 40 mg IVP DAILY [facility] Last Admin: 12/10/17 09:13 Dose: 40 mg Sodium Hypochlorite (Dakins Solution 0.5%) 0 ml TOP DAILY [facility] Last Admin: 12/10/17 09:10 Dose: Not Given - Labs Labs: 12/10/17 07:30 12/10/17 07:30 PT 12.7 SECONDS (9.4-12.5) H 12/08/17 08:30 INR 1.10 (0.93-1.08) H 12/08/17 08:30 APTT 30.7 Seconds (25.1-36.5) 12/08/17 08:30
--- NOTE | 2017-12-10 15:40 | PN ---
DATE: 12/10/2017 CARDIOLOGY FOLLOWUP SUBJECTIVE: The patient remains on a ventilator. PHYSICAL EXAMINATION: VITAL SIGNS: Blood pressure 111/56, heart rates in the 80s. NECK: Negative JVD. LUNGS: Decreased breath sounds. HEART: Reveals S1, S2 with a short systolic murmur, which is unchanged. EXTREMITIES: Without edema. LABORATORY DATA: Hemoglobin is 9.2, white count is 14. BUN and creatinine are , glucose is 234. IMPRESSION: 1. Adult respiratory distress syndrome. 2. Respiratory failure. 3. Endocarditis. 4. Diabetes mellitus. 5. End-stage renal disease. PLAN: Given these findings, the patient is on parameters to try to wean the patient off the ventilator. Riccardo Whitehead MD
--- NOTE | 2017-12-10 16:36 | CP.PCM.PN ---
Subjective - Date & Time of Evaluation Date of Evaluation: 12/10/17 Time of Evaluation: 08:20 - Subjective Subjective: Patient continues to be on the ventilator, no fevers, no diarrhea. Objective - Vital Signs/Intake and Output Vital Signs (last 24 hours): Temp Pulse Resp BP Pulse Ox 98.6 F 76 20 120/56 L 95 12/10/17 14:29 12/10/17 13:30 12/10/17 04:35 12/10/17 14:30 12/10/17 14:29 Intake and Output: 12/10/17 12/10/17 06:59 18:59 Intake Total 430 375 Balance 430 375 - Medications Medications: Current Medications Acetaminophen (Tylenol 325mg Tab) 650 mg PO Q6H PRN PRN Reason: Fever >100.4 F Albuterol/Ipratropium (Duoneb 3 Mg/0.5 Mg (3 Ml) Ud) 3 ml IH [id number] [facility] Last Admin: 12/10/17 08:08 Dose: 3 ml Aspirin (Aspirin Chewable) 81 mg PO DAILY [facility] Last Admin: 12/10/17 09:14 Dose: 81 mg Atorvastatin Calcium (Lipitor) 10 mg PO DIN [facility] Last Admin: 12/09/17 17:03 Dose: 10 mg Heparin Sodium (Porcine) (Heparin) 5,000 units SC Q8 [facility] PRN Reason: Protocol Last Admin: 12/10/17 13:23 Dose: 5,000 units Hydralazine HCl (Apresoline) 25 mg PO Q4 PRN PRN Reason: Other Hydralazine HCl (Apresoline) 10 mg IVP Q6 PRN PRN Reason: SBP >150 and/or DBP >90 Last Admin: 12/04/17 21:55 Dose: 10 mg Hydrocortisone Sodium Succinate (Solu-Cortef) 50 mg IVP Q6H [facility] Last Admin: 12/10/17 13:22 Dose: 50 mg Meropenem 500 mg/ Sodium (Chloride) 50 mls @ 100 mls/hr IVPB Q12 [facility] PRN Reason: Protocol Stop: 12/13/17 18:52 Last Admin: 12/10/17 09:15 Dose: 100 mls/hr Daptomycin 690 mg/ Sodium (Chloride) 100 mls @ 200 mls/hr IV QOTHERDAY [facility] Stop: 12/29/17 15:01 Last Admin: 12/10/17 12:33 Dose: 200 mls/hr Fentanyl Citrate (Fentanyl Citrate/Sodium Chloride 1 Mg/100 Ml) 1,000 mcg in 100 mls @ 2 mls/hr IV .Q24H PRN; Protocol; 20 MCG/HR PRN Reason: TITRATE PER MD ORDER Last Titration: 12/10/17 15:00 Dose: 120 mcg/hr, 12 mls/hr Linezolid (Zyvox 600mg/300ml D5w) 600 mg in 300 mls @ 200 mls/hr IVPB Q12 [facility] PRN Reason: Protocol Stop: 12/14/17 22:01 Last Admin: 12/10/17 09:14 Dose: 200 mls/hr Insulin Detemir (Levemir) 48 unit SC HS [facility] Insulin Human Regular (Humulin R High) 0 units SC Q4 [facility] PRN Reason: Protocol Last Admin: 12/10/17 12:31 Dose: 4 units Levalbuterol HCl (Xopenex) 0.63 mg IH [id number] [facility] Last Admin: 12/05/17 08:01 Dose: 0.63 mg Levalbuterol HCl (Xopenex) 1.25 mg IH [id number] PRN PRN Reason: Shortness of Breath Last Admin: 12/06/17 05:35 Dose: 1.25 mg Metoprolol Tartrate (Lopressor) 5 mg IVP Q6H [facility] Last Admin: 12/10/17 09:25 Dose: Not Given Metoprolol Tartrate (Lopressor) 25 mg PO BID [facility] Midazolam HCl (Versed Inj) 4 mg IVP Q4 PRN PRN Reason: Agitation Last Admin: 12/07/17 17:44 Dose: 4 mg Multivitamins (Thera Tab) 1 tab PO DAILY [facility] Last Admin: 12/10/17 09:14 Dose: 1 tab Pantoprazole Sodium (Protonix Inj) 40 mg IVP DAILY [facility] Last Admin: 12/10/17 09:13 Dose: 40 mg Sodium Hypochlorite (Dakins Solution 0.5%) 0 ml TOP DAILY [facility] Last Admin: 12/10/17 09:10 Dose: Not Given - Labs Labs: 12/10/17 07:30 12/10/17 07:30 PT 12.7 SECONDS (9.4-12.5) H 12/08/17 08:30 INR 1.10 (0.93-1.08) H 12/08/17 08:30 APTT 30.7 Seconds (25.1-36.5) 12/08/17 08:30 - Constitutional Appears: Chronically Ill, Other (intubated, sedated) - Head Exam Head Exam: NORMAL INSPECTION - ENT Exam Additional comments: ET tube in place - Respiratory Exam Respiratory Exam: Decreased Breath Sounds - Cardiovascular Exam Cardiovascular Exam: +S1, +S2 - GI/Abdominal Exam GI & Abdominal Exam: Soft. absent: Tenderness Assessment and Plan - Assessment and Plan (Free Text) Plan: Assessment severe sepsis with ventilator-dependent respiratory failure in this patient with ARDS with probable new onset HCAP on top of methicillin-sensitive Staph aureus bacteremia, with mitral valve endocarditis and right foot severe skin and skin structure infection (with MRSA), S/P I and D history of right hallux infected ulcer (with gangrene), grew Serratia S/P 1st ray amputation DM HTN dyslipidemia psoriasis history of wounds in the foot history of rib fractures due to trauma Plan continue Daptomycin - patient will need at least 4-6 weeks of antibiotics from first negative blood cx with weekly ESR, CRP, CBC, CMP, CPK levels continue Zyvox and Merrem day 5 to complete 4-7 days of therapy discussed with Dr. Ventura Soto procedure revealed only mild pulmonary HTN and patient is not in florid CHF but in ARDS will continue to monitor clinically overall prognosis is poor
[2017-12-11] MEDS: Albuterol-Ipratrop 3 mg / 0.5 (3 ml) UD IH SCH ×4 (01:55→19:18)
[2017-12-11] MEDS: Insulin Reg-HIGH-Coverage SC SCH ×6 (04:00→21:45)
[2017-12-11 06:18] LABS: ARTERIAL BLOOD GAS HCO3 26.4 mmol/L (21-28); ARTERIAL BLOOD GAS HEMOGLOBIN 11.7 g/dL (11.7-17.4); ARTERIAL BLOOD GAS O2 CAPACITY 16.1 mL/dl (16-24); ARTERIAL BLOOD GAS O2 CONTENT 15.8 ML/dl (15-23); ARTERIAL BLOOD GAS O2 SAT 97.9 % (95-98); ARTERIAL BLOOD GAS PCO2 49 mm/Hg (35-45); ARTERIAL BLOOD GAS PH 7.34 (7.35-7.45); ARTERIAL BLOOD GAS TCO2 27.9 mmol.L (22-28)
[2017-12-11] MEDS: Fentanyl 1000mcg/100ml NS 1,000 MCG/100 ML BAG IV PRN (06:32)
[2017-12-11 06:50] LABS: HEMOGLOBIN 9.3 g/dL (14.0-18.0); MEAN CELL VOLUME 88.4 fl (80.0-105.0); MEAN CORPUSCULAR HEMOGLOBIN 28.3 pg (25.0-35.0); MEAN PLATELET VOLUME 9.8 fl (7.0-11.0); RBC 3.29 10^6/uL (3.5-6.1); RED CELL DISTRIBUTION WIDTH 15.2 % (11.5-14.5); WHITE BLOOD COUNT 7.6 10^3/ul (4.5-11.0)
[2017-12-11 07:09] LABS: ALB/GLOB RATIO 0.7 (1.1-1.8); ALBUMIN 2.8 g/dL (3.0-4.8); CALCIUM 8.1 mg/dL (8.4-10.5)
--- NOTE | 2017-12-11 07:36 | RAD ---
HISTORY: f/u COMPARISON: Portable chest 12/10/2017. FINDINGS: Endotracheal and nasogastric tubes are unchanged in position. LUNGS: Left hemidiaphragm is silhouetted completely likely as a function of left basilar atelectasis though delete an element of infiltrate is not completely excluded. No definite right-sided infiltrate with right hemidiaphragm now identified clearly. PLEURA: Left pleural effusion is not excluded. None is clearly evident at the right. CARDIOVASCULAR: Cardiac silhouette is stable. Pulmonary pattern is diminished suggests improved CHF. OSSEOUS STRUCTURES: Old healed upper right rib fractures again identified. VISUALIZED UPPER ABDOMEN: Normal. OTHER FINDINGS: None. IMPRESSION: Improving CHF although persistent left basilar atelectasis or possible infiltrate is seen. Improved definition of the right hemidiaphragm suggests diminished or resolved right basilar atelectasis. Left pleural effusion not excluded.
--- NOTE | 2017-12-11 09:03 | PN ---
DATE: 12/11/2017 PULMONARY NOTE SUBJECTIVE: The patient remains on the ventilator. He is sedated. PHYSICAL EXAMINATION: VITAL SIGNS: Temperature is 98.8, pulse 83, respirations 22/22, blood pressure 123/61. HEENT: Normocephalic, atraumatic. No JVD. CARDIOVASCULAR: Systolic ejection murmur at the lower left sternal border. Questionable S3 gallop. LUNGS: Decreased breath sounds at the bases with less crackles. Much less rhonchi. No wheezing. EXTREMITIES: The right foot remains wrapped. There is mild edema in both lower extremities. There is no cyanosis or clubbing. GI: Abdomen is soft, nontender and nondistended. Bowel sounds are positive. SKIN: No acute rash. NEUROLOGIC: Limited at the present time. PERTINENT LABORATORY DATA: The chest x-ray was repeated this morning and reviewed. The chest x-ray is not significantly changed from the previous film, but does appear improved compared to a few days ago. Arterial blood gas was done on PRVC 22, tidal volume 400, FIO2 of 50%. Results are: PH 7.34, pCO2 of 49, pO2 of 91. IMPRESSION: 1. Respiratory failure. 2. Acute respiratory distress syndrome. 3. Mild bronchospasm. 4. Sepsis syndrome. 5. Renal insufficiency. 6. Mild anemia. 7. Right foot infection. 8. Mitral valve endocarditis. PLAN: The patient remains on the ventilator. He remains sedated. I did discuss the case with the night nurse at length. The night nurse stated that the patient had a pretty good night. I also reviewed the chest x-ray. The chest x-ray is similar to yesterday's film, but certainly improved from a few days ago. I have also reviewed the arterial blood gas. There is significant improvement in the pH. However, there remains a significant alveolar-arterial gradient. I would continue with the antibiotic coverage as per Infectious Disease. The temperatures have now resolved. The leukocytosis is also fully resolved. I would continue with the Renal and Cardiology evaluations. Inputs are noted. The clinical status of the patient is certainly improved - compared to a few days ago. However, again, the future status/prognosis for this patient remains very guarded. I will discuss the above with the entire ICU team in the next few moments. I will also discuss the above with Dr. Mendez later this morning. Baljinder Dejesus MD [facility] # [id number] [place]
--- NOTE | 2017-12-11 10:14 | CP.CCUPN ---
<Enrique Brand - Last Filed: 12/11/17 10:09> CCU Subjective - Physician Review Subjective (Free Text): Patient seen and examined at bedside. Patient extubated this morning. Patient states he feels lethargic. Denies chest pain, shortness of breath, nausea, vomiting, diarrhea, fever, chills. CCU Objective - Vital Signs / Intake & Output Vital Signs (Last 4 hours): Vital Signs Temp Pulse BP Pulse Ox 12/11/17 06:30 123/61 12/11/17 06:29 98.8 F 83 95 Intake and Output (Last 8hrs): Intake & Output 12/10/17 12/11/17 12/11/17 22:59 06:59 14:59 Intake Total 1010 1120 Output Total 1850 50 Balance -840 1070 Intake: IV 570 680 Right Femoral 120 180 Right Forearm 350 400 Tube Feeding 440 240 Other 200 Output: Urine 50 50 Urethral (Ibrahim) 50 50 Other 1800 - Physical Exam Head: Positive for: Atraumatic, Normocephalic Pupils: Positive for: PERRL Extroacular Muscles: Positive for: EOMI Conjunctiva: Positive for: Normal Mouth: Positive for: Moist Mucous Membranes Neck: Positive for: Normal Range of Motion Respiratory/Chest: Positive for: Good Air Exchange, Decreased Breath Sounds. Negative for: Respiratory Distress, Accessory Muscle Use Cardiovascular: Positive for: Regular Rate and Rhythm, Normal S1, S2 Abdomen: Positive for: Normal Bowel Sounds. Negative for: Tenderness, Distention, Peritoneal Signs Upper Extremity: Positive for: Normal Inspection, Edema. Negative for: Cyanosis Lower Extremity: Positive for: Other (Right lower ext bandaged ) Neurological: Positive for: GCS=15, CN II-XII Intact, Speech Normal Skin: Positive for: Warm, Dry, Normal Color. Negative for: Rashes Psychiatric: Positive for: Alert, Oriented x 3, Normal Insight, Normal Concentration - Medications Active Medications: Active Medications Generic Name Dose Route Start Last Admin Trade Name Freq PRN Reason Stop Dose Admin Acetaminophen 650 mg 12/01/17 10:16 Tylenol 325mg Tab PO Q6H PRN Fever >100.4 F Albuterol/Ipratropium 3 ml 12/05/17 14:00 12/11/17 09:42 Duoneb 3 Mg/0.5 Mg (3 Ml) Ud IH 3 ml [id number] GERRY Administration Aspirin 81 mg 12/01/17 10:30 12/10/17 09:14 Aspirin Chewable PO 81 mg DAILY GERRY Administration Atorvastatin Calcium 10 mg 12/01/17 17:00 12/10/17 16:53 Lipitor PO 10 mg DIN GERRY Administration Heparin Sodium (Porcine) 5,000 units 12/04/17 22:00 12/11/17 06:18 Heparin SC 5,000 units Q8 GERRY Administration Protocol Hydralazine HCl 25 mg 12/03/17 09:28 Apresoline PO Q4 PRN Other Hydralazine HCl 10 mg 12/04/17 21:43 12/04/17 21:55 Apresoline IVP 10 mg Q6 PRN Administration SBP >150 and/or DBP >90 Hydrocortisone Sodium Succinate 50 mg 12/11/17 10:00 Solu-Cortef IVP Q12 GERRY Meropenem 500 mg/ Sodium 50 mls @ 100 mls/hr 12/04/17 18:51 12/10/17 21:25 Chloride IVPB 12/13/17 18:52 100 mls/hr Q12 GERRY Administration Protocol Daptomycin 690 mg/ Sodium 100 mls @ 200 mls/hr 12/06/17 10:00 12/10/17 12:33 Chloride IV 12/29/17 15:01 200 mls/hr QOTHERDAY GERRY Administration Linezolid 600 mg in 300 mls @ 200 mls/hr 12/07/17 22:00 12/10/17 22:19 Zyvox 600mg/300ml D5w IVPB 12/14/17 22:01 200 mls/hr Q12 GERRY Administration Protocol Insulin Detemir 50 unit 12/11/17 08:53 Levemir SC HS GERRY Insulin Human Regular 0 units 12/08/17 16:00 12/11/17 08:44 Humulin R High SC 4 units Q4 GERRY Administration Protocol Levalbuterol HCl 0.63 mg 12/01/17 14:00 12/05/17 08:01 Xopenex IH 0.63 mg [id number] GERRY Administration Levalbuterol HCl 1.25 mg 12/01/17 10:16 12/06/17 05:35 Xopenex IH 1.25 mg [id number] PRN Administration Shortness of Breath Metoprolol Tartrate 5 mg 12/05/17 09:00 12/10/17 09:25 Lopressor IVP Not Given Q6H GERRY Metoprolol Tartrate 25 mg 12/07/17 18:00 Lopressor PO BID GERRY Midazolam HCl 4 mg 12/07/17 16:04 12/07/17 17:44 Versed Inj IVP 4 mg Q4 PRN Administration Agitation Multivitamins 1 tab 12/02/17 10:00 12/10/17 09:14 Thera Tab PO 1 tab DAILY GERRY Administration Pantoprazole Sodium 40 mg 12/08/17 10:00 12/10/17 09:13 Protonix Inj IVP 40 mg DAILY GERRY Administration Sodium Hypochlorite 0 ml 12/06/17 10:00 12/10/17 09:10 Dakins Solution 0.5% TOP Not Given DAILY GERRY - Patient Studies Lab Studies: Microbiology Studies 12/07/17 17:23 Gram Stain - Final Sputum Sputum Culture - Final No growth. Lab Studies 12/11/17 12/11/17 12/11/17 Range/Units 07:39 06:13 06:05 WBC (4.5-11.0) 10^3/ul RBC (3.5-6.1) 10^6/uL Hgb (14.0-18.0) g/dL Hct (42.0-52.0) % MCV (80.0-105.0) fl MCH (25.0-35.0) pg MCHC (31.0-37.0) g/dl RDW (11.5-14.5) % Plt Count (120.0-450.0) 10^3/uL MPV (7.0-11.0) fl pCO2 49 H (35-45) mm/Hg pO2 91.0 (80-100) mm/Hg HCO3 26.4 (21-28) mmol/L ABG pH 7.34 L (7.35-7.45) ABG Total CO2 27.9 (22-28) mmol.L ABG O2 Saturation 97.9 (95-98) % ABG O2 Content 15.8 (15-23) ML/dl ABG Base Excess 0.1 (-2.0-3.0) mmol/L ABG Hemoglobin 11.7 (11.7-17.4) g/dL ABG Carboxyhemoglobin 1.3 (0.5-1.5) % POC ABG HHb (Measured) 2.1 (0-5) % ABG Methemoglobin 0.9 (0.0-3.0) % ABG O2 Capacity 16.1 (16-24) mL/dl Hgb O2 Saturation 95.7 (95.0-98.0) % FiO2 50.0 % Sodium 135 (132-148) mmol/L Potassium 4.8 (3.6-5.0) mmol/L Chloride 100 (98-107) mmol/L Carbon Dioxide 23 (21-33) mmol/L Anion Gap 18 (10-20) BUN 87 H (7-21) mg/dL Creatinine 5.9 H (0.8-1.5) mg/dl Est GFR ( Amer) 11 Est GFR (Non-Af Amer) 9 POC Glucose (mg/dL) 202 H (65-110) mg/dL Random Glucose 232 H (70-110) mg/dL Calcium 8.1 L (8.4-10.5) mg/dL Phosphorus 7.0 H (2.5-4.5) mg/dL Total Bilirubin 0.4 (0.2-1.3) mg/dL AST 45 (17-59) U/L ALT 48 (7-56) U/L Alkaline Phosphatase 197 H (38-126) U/L Total Protein 6.7 (5.8-8.3) g/dL Albumin 2.8 L (3.0-4.8) g/dL Globulin 3.9 gm/dL Albumin/Globulin Ratio 0.7 L (1.1-1.8) 12/11/17 12/11/17 12/10/17 Range/Units 06:05 03:47 23:54 WBC 7.6 D (4.5-11.0) 10^3/ul RBC 3.29 L (3.5-6.1) 10^6/uL Hgb 9.3 L (14.0-18.0) g/dL Hct 29.1 L (42.0-52.0) % MCV 88.4 (80.0-105.0) fl MCH 28.3 (25.0-35.0) pg MCHC 32.0 (31.0-37.0) g/dl RDW 15.2 H (11.5-14.5) % Plt Count 220 (120.0-450.0) 10^3/uL MPV 9.8 (7.0-11.0) fl pCO2 (35-45) mm/Hg pO2 (80-100) mm/Hg HCO3 (21-28) mmol/L ABG pH (7.35-7.45) ABG Total CO2 (22-28) mmol.L ABG O2 Saturation (95-98) % ABG O2 Content (15-23) ML/dl ABG Base Excess (-2.0-3.0) mmol/L ABG Hemoglobin (11.7-17.4) g/dL ABG Carboxyhemoglobin (0.5-1.5) % POC ABG HHb (Measured) (0-5) % ABG Methemoglobin (0.0-3.0) % ABG O2 Capacity (16-24) mL/dl Hgb O2 Saturation (95.0-98.0) % FiO2 % Sodium (132-148) mmol/L Potassium (3.6-5.0) mmol/L Chloride (98-107) mmol/L Carbon Dioxide (21-33) mmol/L Anion Gap (10-20) BUN (7-21) mg/dL Creatinine (0.8-1.5) mg/dl Est GFR ( Amer) Est GFR (Non-Af Amer) POC Glucose (mg/dL) 219 H 240 H (65-110) mg/dL Random Glucose (70-110) mg/dL Calcium (8.4-10.5) mg/dL Phosphorus (2.5-4.5) mg/dL Total Bilirubin (0.2-1.3) mg/dL AST (17-59) U/L ALT (7-56) U/L Alkaline Phosphatase (38-126) U/L Total Protein (5.8-8.3) g/dL Albumin (3.0-4.8) g/dL Globulin gm/dL Albumin/Globulin Ratio (1.1-1.8) 12/10/17 12/10/17 12/10/17 Range/Units 22:07 19:55 15:47 WBC (4.5-11.0) 10^3/ul RBC (3.5-6.1) 10^6/uL Hgb (14.0-18.0) g/dL Hct (42.0-52.0) % MCV (80.0-105.0) fl MCH (25.0-35.0) pg MCHC (31.0-37.0) g/dl RDW (11.5-14.5) % Plt Count (120.0-450.0) 10^3/uL MPV (7.0-11.0) fl pCO2 (35-45) mm/Hg pO2 (80-100) mm/Hg HCO3 (21-28) mmol/L ABG pH (7.35-7.45) ABG Total CO2 (22-28) mmol.L ABG O2 Saturation (95-98) % ABG O2 Content (15-23) ML/dl ABG Base Excess (-2.0-3.0) mmol/L ABG Hemoglobin (11.7-17.4) g/dL ABG Carboxyhemoglobin (0.5-1.5) % POC ABG HHb (Measured) (0-5) % ABG Methemoglobin (0.0-3.0) % ABG O2 Capacity (16-24) mL/dl Hgb O2 Saturation (95.0-98.0) % FiO2 % Sodium (132-148) mmol/L Potassium (3.6-5.0) mmol/L Chloride (98-107) mmol/L Carbon Dioxide (21-33) mmol/L Anion Gap (10-20) BUN (7-21) mg/dL Creatinine (0.8-1.5) mg/dl Est GFR ( Amer) Est GFR (Non-Af Amer) POC Glucose (mg/dL) 194 H 157 H 161 H (65-110) mg/dL Random Glucose (70-110) mg/dL Calcium (8.4-10.5) mg/dL Phosphorus (2.5-4.5) mg/dL Total Bilirubin (0.2-1.3) mg/dL AST (17-59) U/L ALT (7-56) U/L Alkaline Phosphatase (38-126) U/L Total Protein (5.8-8.3) g/dL Albumin (3.0-4.8) g/dL Globulin gm/dL Albumin/Globulin Ratio (1.1-1.8) 12/10/17 Range/Units 11:59 WBC (4.5-11.0) 10^3/ul RBC (3.5-6.1) 10^6/uL Hgb (14.0-18.0) g/dL Hct (42.0-52.0) % MCV (80.0-105.0) fl MCH (25.0-35.0) pg MCHC (31.0-37.0) g/dl RDW (11.5-14.5) % Plt Count (120.0-450.0) 10^3/uL MPV (7.0-11.0) fl pCO2 (35-45) mm/Hg pO2 (80-100) mm/Hg HCO3 (21-28) mmol/L ABG pH (7.35-7.45) ABG Total CO2 (22-28) mmol.L ABG O2 Saturation (95-98) % ABG O2 Content (15-23) ML/dl ABG Base Excess (-2.0-3.0) mmol/L ABG Hemoglobin (11.7-17.4) g/dL ABG Carboxyhemoglobin (0.5-1.5) % POC ABG HHb (Measured) (0-5) % ABG Methemoglobin (0.0-3.0) % ABG O2 Capacity (16-24) mL/dl Hgb O2 Saturation (95.0-98.0) % FiO2 % Sodium (132-148) mmol/L Potassium (3.6-5.0) mmol/L Chloride (98-107) mmol/L Carbon Dioxide (21-33) mmol/L Anion Gap (10-20) BUN (7-21) mg/dL Creatinine (0.8-1.5) mg/dl Est GFR ( Amer) Est GFR (Non-Af Amer) POC Glucose (mg/dL) 215 H (65-110) mg/dL Random Glucose (70-110) mg/dL Calcium (8.4-10.5) mg/dL Phosphorus (2.5-4.5) mg/dL Total Bilirubin (0.2-1.3) mg/dL AST (17-59) U/L ALT (7-56) U/L Alkaline Phosphatase (38-126) U/L Total Protein (5.8-8.3) g/dL Albumin (3.0-4.8) g/dL Globulin gm/dL Albumin/Globulin Ratio (1.1-1.8) Laboratory Results - last 24 hr 12/10/17 12/10/17 12/10/17 11:59 15:47 19:55 WBC RBC Hgb Hct MCV MCH MCHC RDW Plt Count MPV pCO2 pO2 HCO3 ABG pH ABG Total CO2 ABG O2 Saturation ABG O2 Content ABG Base Excess ABG Hemoglobin ABG Carboxyhemoglobin POC ABG HHb (Measured) ABG Methemoglobin ABG O2 Capacity Hgb O2 Saturation FiO2 Sodium Potassium Chloride Carbon Dioxide Anion Gap BUN Creatinine Est GFR ( Amer) Est GFR (Non-Af Amer) POC Glucose (mg/dL) 215 H 161 H 157 H Random Glucose Calcium Phosphorus Total Bilirubin AST ALT Alkaline Phosphatase Total Protein Albumin Globulin Albumin/Globulin Ratio 12/10/17 12/10/17 12/11/17 22:07 23:54 03:47 WBC RBC Hgb Hct MCV MCH MCHC RDW Plt Count MPV pCO2 pO2 HCO3 ABG pH ABG Total CO2 ABG O2 Saturation ABG O2 Content ABG Base Excess ABG Hemoglobin ABG Carboxyhemoglobin POC ABG HHb (Measured) ABG Methemoglobin ABG O2 Capacity Hgb O2 Saturation FiO2 Sodium Potassium Chloride Carbon Dioxide Anion Gap BUN Creatinine Est GFR ( Amer) Est GFR (Non-Af Amer) POC Glucose (mg/dL) 194 H 240 H 219 H Random Glucose Calcium Phosphorus Total Bilirubin AST ALT Alkaline Phosphatase Total Protein Albumin Globulin Albumin/Globulin Ratio 12/11/17 12/11/17 12/11/17 06:05 06:05 06:13 WBC 7.6 D RBC 3.29 L Hgb 9.3 L Hct 29.1 L MCV 88.4 MCH 28.3 MCHC 32.0 RDW 15.2 H Plt Count 220 MPV 9.8 pCO2 49 H pO2 91.0 HCO3 26.4 ABG pH 7.34 L ABG Total CO2 27.9 ABG O2 Saturation 97.9 ABG O2 Content 15.8 ABG Base Excess 0.1 ABG Hemoglobin 11.7 ABG Carboxyhemoglobin 1.3 POC ABG HHb (Measured) 2.1 ABG Methemoglobin 0.9 ABG O2 Capacity 16.1 Hgb O2 Saturation 95.7 FiO2 50.0 Sodium 135 Potassium 4.8 Chloride 100 Carbon Dioxide 23 Anion Gap 18 BUN 87 H Creatinine 5.9 H Est GFR ( Amer) 11 Est GFR (Non-Af Amer) 9 POC Glucose (mg/dL) Random Glucose 232 H Calcium 8.1 L Phosphorus 7.0 H Total Bilirubin 0.4 AST 45 ALT 48 Alkaline Phosphatase 197 H Total Protein 6.7 Albumin 2.8 L Globulin 3.9 Albumin/Globulin Ratio 0.7 L 12/11/17 07:39 WBC RBC Hgb Hct MCV MCH MCHC RDW Plt Count MPV pCO2 pO2 HCO3 ABG pH ABG Total CO2 ABG O2 Saturation ABG O2 Content ABG Base Excess ABG Hemoglobin ABG Carboxyhemoglobin POC ABG HHb (Measured) ABG Methemoglobin ABG O2 Capacity Hgb O2 Saturation FiO2 Sodium Potassium Chloride Carbon Dioxide Anion Gap BUN Creatinine Est GFR ( Amer) Est GFR (Non-Af Amer) POC Glucose (mg/dL) 202 H Random Glucose Calcium Phosphorus Total Bilirubin AST ALT Alkaline Phosphatase Total Protein Albumin Globulin Albumin/Globulin Ratio Fingerstick Blood Sugar Results: 202 Critical Care Progress Note - Nutrition Nutrition: Nutrition Category Date Time Status NPO Diet [DIET] Diets 12/08/17 Breakfast Ordered Assessment/Plan - Assessment and Plan (Free Text) Plan: 72 year old male with past medical history of DM, HTN, Obesity, Mitral valve Infective Endocarditis, Osteomyelitis of right foot 2nd and 3rd toe, and ROHINI presents with MODS in the setting of ARDS, acute renal failure, osteomyelitis, and infective endocarditis. Patient extubated this morning. Patient will be on BIPAP at night. Continue current medical regimen. Antibiotics as per ID. Will taper steroids. Neuro: AAOx3 No sedation Cardio: Continue abx as per ID Maintain hemodynamic stability Maintain MAP > 65 Cardiology consulted Pulm: Maintain O2 sat > 90% Extubated BIPAP at night GI: Protonix NPO Nephro: Klebsiella UTI Dialysis yesterday Avoid nephrotoxic medications Maintain euvolemia Heme/ID: Continue abx as per ID MRSA osteomyelitis Afebrile, no leukocytosis ID following Heparin for DVT prophylaxis Cathie, PGY-2 <Yaniv Marino - Last Filed: 12/11/17 12:16> CCU Objective - Vital Signs / Intake & Output Intake and Output (Last 8hrs): Intake & Output 12/10/17 12/11/17 12/11/17 22:59 06:59 14:59 Intake Total 1010 1120 Output Total 1850 50 Balance -840 1070 Intake: IV 570 680 Right Femoral 120 180 Right Forearm 350 400 Tube Feeding 440 240 Other 200 Output: Urine 50 50 Urethral (Ibrahim) 50 50 Other 1800 - Medications Active Medications: Active Medications Generic Name Dose Route Start Last Admin Trade Name Freq PRN Reason Stop Dose Admin Acetaminophen 650 mg 12/01/17 10:16 Tylenol 325mg Tab PO Q6H PRN Fever >100.4 F Albuterol/Ipratropium 3 ml 12/05/17 14:00 12/11/17 09:42 Duoneb 3 Mg/0.5 Mg (3 Ml) Ud IH 3 ml [id number] GERRY Administration Aspirin 81 mg 12/01/17 10:30 12/11/17 10:47 Aspirin Chewable PO 81 mg DAILY GERRY Administration Atorvastatin Calcium 10 mg 12/01/17 17:00 12/10/17 16:53 Lipitor PO 10 mg DIN GERRY Administration Heparin Sodium (Porcine) 5,000 units 12/04/17 22:00 12/11/17 06:18 Heparin SC 5,000 units Q8 GERRY Administration Protocol Hydralazine HCl 25 mg 12/03/17 09:28 Apresoline PO Q4 PRN Other Hydralazine HCl 10 mg 12/04/17 21:43 12/04/17 21:55 Apresoline IVP 10 mg Q6 PRN Administration SBP >150 and/or DBP >90 Hydrocortisone Sodium Succinate 50 mg 12/11/17 10:00 12/11/17 10:47 Solu-Cortef IVP 50 mg Q12 GERRY Administration Meropenem 500 mg/ Sodium 50 mls @ 100 mls/hr 12/04/17 18:51 12/11/17 10:38 Chloride IVPB 12/13/17 18:52 100 mls/hr Q12 GERRY Administration Protocol Daptomycin 690 mg/ Sodium 100 mls @ 200 mls/hr 12/06/17 10:00 12/10/17 12:33 Chloride IV 12/29/17 15:01 200 mls/hr QOTHERDAY GERRY Administration Linezolid 600 mg in 300 mls @ 200 mls/hr 12/07/17 22:00 12/11/17 10:49 Zyvox 600mg/300ml D5w IVPB 12/14/17 22:01 200 mls/hr Q12 GERRY Administration Protocol Insulin Detemir 50 unit 12/11/17 08:53 Levemir SC HS GERRY Insulin Human Regular 0 units 12/08/17 16:00 12/11/17 08:44 Humulin R High SC 4 units Q4 GERRY Administration Protocol Levalbuterol HCl 0.63 mg 12/01/17 14:00 12/05/17 08:01 Xopenex IH 0.63 mg [id number] GERRY Administration Levalbuterol HCl 1.25 mg 12/01/17 10:16 12/06/17 05:35 Xopenex IH 1.25 mg [id number] PRN Administration Shortness of Breath Metoprolol Tartrate 5 mg 12/05/17 09:00 12/10/17 09:25 Lopressor IVP Not Given Q6H GERRY Metoprolol Tartrate 25 mg 12/07/17 18:00 Lopressor PO BID GERRY Midazolam HCl 4 mg 12/07/17 16:04 12/07/17 17:44 Versed Inj IVP 4 mg Q4 PRN Administration Agitation Multivitamins 1 tab 12/02/17 10:00 12/11/17 11:04 Thera Tab PO 1 tab DAILY GERRY Administration Pantoprazole Sodium 40 mg 12/08/17 10:00 12/11/17 11:01 Protonix Inj IVP 40 mg DAILY GERRY Administration Sodium Hypochlorite 0 ml 12/06/17 10:00 12/10/17 09:10 Dakins Solution 0.5% TOP Not Given DAILY GERRY - Patient Studies Lab Studies: Microbiology Studies 12/07/17 17:23 Gram Stain - Final Sputum Sputum Culture - Final No growth. Lab Studies 12/11/17 12/11/17 12/11/17 Range/Units 07:39 06:13 06:05 WBC (4.5-11.0) 10^3/ul RBC (3.5-6.1) 10^6/uL Hgb (14.0-18.0) g/dL Hct (42.0-52.0) % MCV (80.0-105.0) fl MCH (25.0-35.0) pg MCHC (31.0-37.0) g/dl RDW (11.5-14.5) % Plt Count (120.0-450.0) 10^3/uL MPV (7.0-11.0) fl pCO2 49 H (35-45) mm/Hg pO2 91.0 (80-100) mm/Hg HCO3 26.4 (21-28) mmol/L ABG pH 7.34 L (7.35-7.45) ABG Total CO2 27.9 (22-28) mmol.L ABG O2 Saturation 97.9 (95-98) % ABG O2 Content 15.8 (15-23) ML/dl ABG Base Excess 0.1 (-2.0-3.0) mmol/L ABG Hemoglobin 11.7 (11.7-17.4) g/dL ABG Carboxyhemoglobin 1.3 (0.5-1.5) % POC ABG HHb (Measured) 2.1 (0-5) % ABG Methemoglobin 0.9 (0.0-3.0) % ABG O2 Capacity 16.1 (16-24) mL/dl Hgb O2 Saturation 95.7 (95.0-98.0) % FiO2 50.0 % Sodium 135 (132-148) mmol/L Potassium 4.8 (3.6-5.0) mmol/L Chloride 100 (98-107) mmol/L Carbon Dioxide 23 (21-33) mmol/L Anion Gap 18 (10-20) BUN 87 H (7-21) mg/dL Creatinine 5.9 H (0.8-1.5) mg/dl Est GFR ( Amer) 11 Est GFR (Non-Af Amer) 9 POC Glucose (mg/dL) 202 H (65-110) mg/dL Random Glucose 232 H (70-110) mg/dL Calcium 8.1 L (8.4-10.5) mg/dL Phosphorus 7.0 H (2.5-4.5) mg/dL Total Bilirubin 0.4 (0.2-1.3) mg/dL AST 45 (17-59) U/L ALT 48 (7-56) U/L Alkaline Phosphatase 197 H (38-126) U/L Total Protein 6.7 (5.8-8.3) g/dL Albumin 2.8 L (3.0-4.8) g/dL Globulin 3.9 gm/dL Albumin/Globulin Ratio 0.7 L (1.1-1.8) 12/11/17 12/11/17 12/10/17 Range/Units 06:05 03:47 23:54 WBC 7.6 D (4.5-11.0) 10^3/ul RBC 3.29 L (3.5-6.1) 10^6/uL Hgb 9.3 L (14.0-18.0) g/dL Hct 29.1 L (42.0-52.0) % MCV 88.4 (80.0-105.0) fl MCH 28.3 (25.0-35.0) pg MCHC 32.0 (31.0-37.0) g/dl RDW 15.2 H (11.5-14.5) % Plt Count 220 (120.0-450.0) 10^3/uL MPV 9.8 (7.0-11.0) fl pCO2 (35-45) mm/Hg pO2 (80-100) mm/Hg HCO3 (21-28) mmol/L ABG pH (7.35-7.45) ABG Total CO2 (22-28) mmol.L ABG O2 Saturation (95-98) % ABG O2 Content (15-23) ML/dl ABG Base Excess (-2.0-3.0) mmol/L ABG Hemoglobin (11.7-17.4) g/dL ABG Carboxyhemoglobin (0.5-1.5) % POC ABG HHb (Measured) (0-5) % ABG Methemoglobin (0.0-3.0) % ABG O2 Capacity (16-24) mL/dl Hgb O2 Saturation (95.0-98.0) % FiO2 % Sodium (132-148) mmol/L Potassium (3.6-5.0) mmol/L Chloride (98-107) mmol/L Carbon Dioxide (21-33) mmol/L Anion Gap (10-20) BUN (7-21) mg/dL Creatinine (0.8-1.5) mg/dl Est GFR ( Amer) Est GFR (Non-Af Amer) POC Glucose (mg/dL) 219 H 240 H (65-110) mg/dL Random Glucose (70-110) mg/dL Calcium (8.4-10.5) mg/dL Phosphorus (2.5-4.5) mg/dL Total Bilirubin (0.2-1.3) mg/dL AST (17-59) U/L ALT (7-56) U/L Alkaline Phosphatase (38-126) U/L Total Protein (5.8-8.3) g/dL Albumin (3.0-4.8) g/dL Globulin gm/dL Albumin/Globulin Ratio (1.1-1.8) 12/10/17 12/10/17 12/10/17 Range/Units 22:07 19:55 15:47 WBC (4.5-11.0) 10^3/ul RBC (3.5-6.1) 10^6/uL Hgb (14.0-18.0) g/dL Hct (42.0-52.0) % MCV (80.0-105.0) fl MCH (25.0-35.0) pg MCHC (31.0-37.0) g/dl RDW (11.5-14.5) % Plt Count (120.0-450.0) 10^3/uL MPV (7.0-11.0) fl pCO2 (35-45) mm/Hg pO2 (80-100) mm/Hg HCO3 (21-28) mmol/L ABG pH (7.35-7.45) ABG Total CO2 (22-28) mmol.L ABG O2 Saturation (95-98) % ABG O2 Content (15-23) ML/dl ABG Base Excess (-2.0-3.0) mmol/L ABG Hemoglobin (11.7-17.4) g/dL ABG Carboxyhemoglobin (0.5-1.5) % POC ABG HHb (Measured) (0-5) % ABG Methemoglobin (0.0-3.0) % ABG O2 Capacity (16-24) mL/dl Hgb O2 Saturation (95.0-98.0) % FiO2 % Sodium (132-148) mmol/L Potassium (3.6-5.0) mmol/L Chloride (98-107) mmol/L Carbon Dioxide (21-33) mmol/L Anion Gap (10-20) BUN (7-21) mg/dL Creatinine (0.8-1.5) mg/dl Est GFR ( Amer) Est GFR (Non-Af Amer) POC Glucose (mg/dL) 194 H 157 H 161 H (65-110) mg/dL Random Glucose (70-110) mg/dL Calcium (8.4-10.5) mg/dL Phosphorus (2.5-4.5) mg/dL Total Bilirubin (0.2-1.3) mg/dL AST (17-59) U/L ALT (7-56) U/L Alkaline Phosphatase (38-126) U/L Total Protein (5.8-8.3) g/dL Albumin (3.0-4.8) g/dL Globulin gm/dL Albumin/Globulin Ratio (1.1-1.8) Laboratory Results - last 24 hr 12/10/17 12/10/17 12/10/17 15:47 19:55 22:07 WBC RBC Hgb Hct MCV MCH MCHC RDW Plt Count MPV pCO2 pO2 HCO3 ABG pH ABG Total CO2 ABG O2 Saturation ABG O2 Content ABG Base Excess ABG Hemoglobin ABG Carboxyhemoglobin POC ABG HHb (Measured) ABG Methemoglobin ABG O2 Capacity Hgb O2 Saturation FiO2 Sodium Potassium Chloride Carbon Dioxide Anion Gap BUN Creatinine Est GFR ( Amer) Est GFR (Non-Af Amer) POC Glucose (mg/dL) 161 H 157 H 194 H Random Glucose Calcium Phosphorus Total Bilirubin AST ALT Alkaline Phosphatase Total Protein Albumin Globulin Albumin/Globulin Ratio 12/10/17 12/11/17 12/11/17 23:54 03:47 06:05 WBC 7.6 D RBC 3.29 L Hgb 9.3 L Hct 29.1 L MCV 88.4 MCH 28.3 MCHC 32.0 RDW 15.2 H Plt Count 220 MPV 9.8 pCO2 pO2 HCO3 ABG pH ABG Total CO2 ABG O2 Saturation ABG O2 Content ABG Base Excess ABG Hemoglobin ABG Carboxyhemoglobin POC ABG HHb (Measured) ABG Methemoglobin ABG O2 Capacity Hgb O2 Saturation FiO2 Sodium Potassium Chloride Carbon Dioxide Anion Gap BUN Creatinine Est GFR ( Amer) Est GFR (Non-Af Amer) POC Glucose (mg/dL) 240 H 219 H Random Glucose Calcium Phosphorus Total Bilirubin AST ALT Alkaline Phosphatase Total Protein Albumin Globulin Albumin/Globulin Ratio 12/11/17 12/11/17 12/11/17 06:05 06:13 07:39 WBC RBC Hgb Hct MCV MCH MCHC RDW Plt Count MPV pCO2 49 H pO2 91.0 HCO3 26.4 ABG pH 7.34 L ABG Total CO2 27.9 ABG O2 Saturation 97.9 ABG O2 Content 15.8 ABG Base Excess 0.1 ABG Hemoglobin 11.7 ABG Carboxyhemoglobin 1.3 POC ABG HHb (Measured) 2.1 ABG Methemoglobin 0.9 ABG O2 Capacity 16.1 Hgb O2 Saturation 95.7 FiO2 50.0 Sodium 135 Potassium 4.8 Chloride 100 Carbon Dioxide 23 Anion Gap 18 BUN 87 H Creatinine 5.9 H Est GFR ( Amer) 11 Est GFR (Non-Af Amer) 9 POC Glucose (mg/dL) 202 H Random Glucose 232 H Calcium 8.1 L Phosphorus 7.0 H Total Bilirubin 0.4 AST 45 ALT 48 Alkaline Phosphatase 197 H Total Protein 6.7 Albumin 2.8 L Globulin 3.9 Albumin/Globulin Ratio 0.7 L Critical Care Progress Note - Nutrition Nutrition: Nutrition Category Date Time Status NPO Diet [DIET] Diets 12/08/17 Breakfast Ordered Assessment/Plan - Assessment and Plan (Free Text) Plan: Patient seen and examined, on rounds with resident, agree with note with following additions/exceptions: Patient is 72yo male with PMHx DM, HTN, Mitral valve IE, Obesity, Osteo, ROHINI, presented with multi orgran failure, in setting of ARF, ARDS. This morning patient placed on CPAP 5/5/40%, sat 95%, RSBI 14-20, subsequently self extubated. Placed on VM 50%, with adequate oxygenation, awake, alert, following commands. ARDS Hypoxic resp failure UTI ESRD on HD Osteomyelitis DM Recommend: - cont with supp O2, keep sat>90% - BIPAP at night - broad spectrum antibiotics, as per ID - BP control - HD as per renal - monitor HH - FS control - speech and swallow eval - follow up renal - follow up ID - GI ppx - DVT ppx, HSQ - Monitor in MICU Critical care time 32 minutes
--- NOTE | 2017-12-11 10:24 | CP.PCM.PN ---
Subjective - Date & Time of Evaluation Date of Evaluation: 12/11/17 Time of Evaluation: 09:35 - Subjective Subjective: Patient is comfortable in bed, extubated by himself, still groggy, no fevers overnight. Objective - Vital Signs/Intake and Output Vital Signs (last 24 hours): Temp Pulse Resp BP Pulse Ox 98.8 F 83 22 123/61 95 12/11/17 06:29 12/11/17 06:29 12/11/17 04:00 12/11/17 06:30 12/11/17 06:29 Intake and Output: 12/11/17 12/11/17 06:59 18:59 Intake Total 1205 Output Total 50 Balance 1155 - Medications Medications: Current Medications Acetaminophen (Tylenol 325mg Tab) 650 mg PO Q6H PRN PRN Reason: Fever >100.4 F Albuterol/Ipratropium (Duoneb 3 Mg/0.5 Mg (3 Ml) Ud) 3 ml IH [id number] [facility] Last Admin: 12/11/17 01:55 Dose: 3 ml Aspirin (Aspirin Chewable) 81 mg PO DAILY [facility] Last Admin: 12/10/17 09:14 Dose: 81 mg Atorvastatin Calcium (Lipitor) 10 mg PO DIN [facility] Last Admin: 12/10/17 16:53 Dose: 10 mg Heparin Sodium (Porcine) (Heparin) 5,000 units SC Q8 GERRY PRN Reason: Protocol Last Admin: 12/11/17 06:18 Dose: 5,000 units Hydralazine HCl (Apresoline) 25 mg PO Q4 PRN PRN Reason: Other Hydralazine HCl (Apresoline) 10 mg IVP Q6 PRN PRN Reason: SBP >150 and/or DBP >90 Last Admin: 12/04/17 21:55 Dose: 10 mg Hydrocortisone Sodium Succinate (Solu-Cortef) 50 mg IVP Q6H [facility] Last Admin: 12/11/17 06:16 Dose: 50 mg Meropenem 500 mg/ Sodium (Chloride) 50 mls @ 100 mls/hr IVPB Q12 [facility] PRN Reason: Protocol Stop: 12/13/17 18:52 Last Admin: 12/10/17 21:25 Dose: 100 mls/hr Daptomycin 690 mg/ Sodium (Chloride) 100 mls @ 200 mls/hr IV QOTHERDAY [facility]Y Stop: 12/29/17 15:01 Last Admin: 12/10/17 12:33 Dose: 200 mls/hr Fentanyl Citrate (Fentanyl Citrate/Sodium Chloride 1 Mg/100 Ml) 1,000 mcg in 100 mls @ 2 mls/hr IV .Q24H PRN; Protocol; 20 MCG/HR PRN Reason: TITRATE PER MD ORDER Last Admin: 12/11/17 06:32 Dose: 150 mcg/hr, 15 mls/hr Linezolid (Zyvox 600mg/300ml D5w) 600 mg in 300 mls @ 200 mls/hr IVPB Q12 [facility] PRN Reason: Protocol Stop: 12/14/17 22:01 Last Admin: 12/10/17 22:19 Dose: 200 mls/hr Insulin Detemir (Levemir) 48 unit SC HS [facility] Last Admin: 12/10/17 22:15 Dose: 48 unit Insulin Human Regular (Humulin R High) 0 units SC Q4 GERRY PRN Reason: Protocol Last Admin: 12/11/17 04:00 Dose: Not Given Levalbuterol HCl (Xopenex) 0.63 mg IH [id number] [facility] Last Admin: 12/05/17 08:01 Dose: 0.63 mg Levalbuterol HCl (Xopenex) 1.25 mg IH [id number] PRN PRN Reason: Shortness of Breath Last Admin: 12/06/17 05:35 Dose: 1.25 mg Metoprolol Tartrate (Lopressor) 5 mg IVP Q6H [facility] Last Admin: 12/10/17 09:25 Dose: Not Given Metoprolol Tartrate (Lopressor) 25 mg PO BID [facility] Midazolam HCl (Versed Inj) 4 mg IVP Q4 PRN PRN Reason: Agitation Last Admin: 12/07/17 17:44 Dose: 4 mg Multivitamins (Thera Tab) 1 tab PO DAILY [facility] Last Admin: 12/10/17 09:14 Dose: 1 tab Pantoprazole Sodium (Protonix Inj) 40 mg IVP DAILY [facility] Last Admin: 12/10/17 09:13 Dose: 40 mg Sodium Hypochlorite (Dakins Solution 0.5%) 0 ml TOP DAILY [facility] Last Admin: 12/10/17 09:10 Dose: Not Given - Labs Labs: 12/11/17 06:05 12/11/17 06:05 PT 12.7 SECONDS (9.4-12.5) H 12/08/17 08:30 INR 1.10 (0.93-1.08) H 12/08/17 08:30 APTT 30.7 Seconds (25.1-36.5) 12/08/17 08:30 - Constitutional Appears: Chronically Ill, Other (groggy) - Head Exam Head Exam: NORMAL INSPECTION - ENT Exam ENT Exam: Mucous Membranes Moist - Neck Exam Neck Exam: absent: Meningismus - Respiratory Exam Respiratory Exam: Decreased Breath Sounds - Cardiovascular Exam Cardiovascular Exam: +S1, +S2 - GI/Abdominal Exam GI & Abdominal Exam: Soft. 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 Whitehead previously - [place] procedure revealed only mild pulmonary HTN and patient is not in florid CHF but in ARDS will continue to monitor clinically overall prognosis is poor
[2017-12-11] MEDS: Meropenem 500 MG in Sodium Chloride 0.9% 50 ML IVPB SCH ×2 (10:38→22:20)
[2017-12-11] MEDS: Linezolid 600 mg in D5W 300 ml 600 MG/300 ML BAG IVPB SCH ×2 (10:49→21:47)
[2017-12-11] MEDS: Multivitamin Therapeutic Tab PO SCH (11:04)
--- NOTE | 2017-12-11 13:24 | PN ---
DATE: SUBJECTIVE: I saw him in the Intensive Care Unit, still on the vent. We will try and possibly wean him off today. He is alert, looking at me. MEDICATIONS: He is on Apresoline, aspirin, Dakin's solution, daptomycin, DuoNeb, fentanyl, heparin, insulin, Levemir, Lipitor, Lopressor, Merrem IV, Protonix, Solu-Cortef IV, Thera-Tabs, Tylenol, Versed, Xopenex and Zyvox IV. PHYSICAL EXAMINATION: VITAL SIGNS: He has a 98.8 temp, 83 pulse, 123/61 blood pressure, 95% O2 sat on 41% end tidal CO2. HEENT: His head is atraumatic, normocephalic. He is on the ventilator. He is intubated. HEART: Regular rate. LUNGS: Decreased breath sounds bilaterally. ABDOMEN: Soft, obese, nontender. EXTREMITIES: No edema. LABORATORY DATA: many different levels. He has a 7.6 white count, the best it has been, it is finally normal. The hemoglobin is 9.3, hematocrit 29.1, platelets are 220. He has a 135 sodium, potassium 4.8, BUN is 87, creatinine 5.9. It is still high, but better than the other day. Hopefully, it will continue to come down. Sugars at 200s the blood sugars. Calcium is 8.1, phos is 7, total bili is 0.4, AST is 45, ALT is 48, alk phos 197, total protein 6.7. ASSESSMENT AND PLAN: He is being seen by Infectious Disease, Renal, Podiatry, [employer], Cardiology. Chest x-ray showed improving congestive heart failure, possible infiltrate. He has severe sepsis, adult respiratory distress syndrome, pneumonia, bacteremia, mitral valve endocarditis, right foot severe skin structure infection with methicillin-resistant Staphylococcus aureus, history of gangrene with amputation, diabetes, hypertension. Continue with aggressive treatment and care. We will check his labs tomorrow. Adjust his diabetes medications. Reagan Mendez DO [facility]
--- NOTE | 2017-12-11 15:10 | PN ---
DATE: 12/11/2017 CARDIOLOGY FOLLOWUP SUBJECTIVE: The patient is extubated. He is lethargic, but without dyspnea. PHYSICAL EXAMINATION: VITAL SIGNS: Blood pressure is 141/64 with the heart rates in the 80s. The patient is afebrile. NECK: Negative JVD. LUNGS: Decreased breath sounds. HEART: Reveals S1, S2. EXTREMITIES: Bandage on the lower extremities. LABORATORY DATA: Hemoglobin is 9.3. Chemistries: BUN and creatinine of 87 and 5.9, glucose is 231. IMPRESSION: 1. Status post respiratory failure, which is improved. 2. Status post adult respiratory distress syndrome. 3. End-stage renal disease. 4. Mitral valve endocarditis. 5. Diabetes mellitus. PLAN: Given these findings, it is good that the patient is off the ventilator. His respiratory status seems to be tolerating, breathing on his own. We will continue the antibiotics. Riccardo Whitehead MD
[2017-12-11] MEDS: Dakin's Topical 0.5%-Full Strength (480 ml) TOP SCH (16:06)
--- NOTE | 2017-12-11 16:15 | CP.PCM.PN ---
<Andrea Khan - Last Filed: 12/11/17 16:10> Subjective - Date & Time of Evaluation Date of Evaluation: 12/11/17 Time of Evaluation: 16:10 - Subjective Subjective: Podiatry Progress Note - Dr. Baron/Luciana 72 y/o male seen and examined at bedside this morning in ICU, 15 days s/p debridement of right foot diabetic ulceration with sinus tract and underlying OM. Patient no longer intubated, however is still lethargic at time of visit. Dressing clean/dry/intact to RLE with multipodus boots present bilaterally. Denies N/V/F/D/C/SOB. Objective - Vital Signs/Intake and Output Vital Signs (last 24 hours): Temp Pulse Resp BP Pulse Ox 97.9 F 83 9 L 141/64 91 L 12/11/17 13:00 12/11/17 13:00 12/11/17 13:00 12/11/17 13:00 12/11/17 13:00 Intake and Output: 12/11/17 12/11/17 06:59 18:59 Intake Total 1205 Output Total 50 Balance 1155 - Medications Medications: Current Medications Acetaminophen (Tylenol 325mg Tab) 650 mg PO Q6H PRN PRN Reason: Fever >100.4 F Albuterol/Ipratropium (Duoneb 3 Mg/0.5 Mg (3 Ml) Ud) 3 ml IH [id number] [facility] Last Admin: 12/11/17 14:27 Dose: 3 ml Aspirin (Aspirin Chewable) 81 mg PO DAILY [facility] Last Admin: 12/11/17 10:47 Dose: 81 mg Atorvastatin Calcium (Lipitor) 10 mg PO DIN [facility] Last Admin: 12/10/17 16:53 Dose: 10 mg Heparin Sodium (Porcine) (Heparin) 5,000 units SC Q8 GERRY PRN Reason: Protocol Last Admin: 12/11/17 06:18 Dose: 5,000 units Hydralazine HCl (Apresoline) 25 mg PO Q4 PRN PRN Reason: Other Hydralazine HCl (Apresoline) 10 mg IVP Q6 PRN PRN Reason: SBP >150 and/or DBP >90 Last Admin: 12/04/17 21:55 Dose: 10 mg Hydrocortisone Sodium Succinate (Solu-Cortef) 50 mg IVP Q12 [facility] Last Admin: 12/11/17 10:47 Dose: 50 mg Meropenem 500 mg/ Sodium (Chloride) 50 mls @ 100 mls/hr IVPB Q12 [facility] PRN Reason: Protocol Stop: 12/13/17 18:52 Last Admin: 12/11/17 10:38 Dose: 100 mls/hr Linezolid (Zyvox 600mg/300ml D5w) 600 mg in 300 mls @ 200 mls/hr IVPB Q12 [facility] PRN Reason: Protocol Stop: 12/14/17 22:01 Last Admin: 12/11/17 10:49 Dose: 200 mls/hr Daptomycin 690 mg/ Sodium (Chloride) 100 mls @ 200 mls/hr IV QOTHERDAY [facility] Stop: 12/29/17 15:01 Insulin Detemir (Levemir) 50 unit SC HS [facility] Insulin Human Regular (Humulin R High) 0 units SC Q4 GERRY PRN Reason: Protocol Last Admin: 12/11/17 13:14 Dose: 4 units Levalbuterol HCl (Xopenex) 0.63 mg IH [id number] [facility] Last Admin: 12/05/17 08:01 Dose: 0.63 mg Levalbuterol HCl (Xopenex) 1.25 mg IH [id number] PRN PRN Reason: Shortness of Breath Last Admin: 12/06/17 05:35 Dose: 1.25 mg Metoprolol Tartrate (Lopressor) 5 mg IVP Q6H [facility] Last Admin: 12/10/17 09:25 Dose: Not Given Metoprolol Tartrate (Lopressor) 25 mg PO BID [facility] Midazolam HCl (Versed Inj) 4 mg IVP Q4 PRN PRN Reason: Agitation Last Admin: 12/07/17 17:44 Dose: 4 mg Multivitamins (Thera Tab) 1 tab PO DAILY [facility] Last Admin: 12/11/17 11:04 Dose: 1 tab Pantoprazole Sodium (Protonix Inj) 40 mg IVP DAILY [facility] Last Admin: 12/11/17 11:01 Dose: 40 mg Sodium Hypochlorite (Dakins Solution 0.5%) 0 ml TOP DAILY [facility] Last Admin: 12/10/17 09:10 Dose: Not Given - Labs Labs: 12/11/17 06:05 04/03/18 06:05 PT 12.7 SECONDS (9.4-12.5) H 12/08/17 08:30 INR 1.10 (0.93-1.08) H 12/08/17 08:30 APTT 30.7 Seconds (25.1-36.5) 12/08/17 08:30 - Constitutional Appears: Well, Non-toxic, No Acute Distress - Extremities Exam Additional comments: RLE focused exam: Vasc: DP and PT non-palpable, temperature gradient is warm to cool from proximal to distal, Cap refill time: < 3 seconds to all digits, moderate non- pitting edema noted to the right forefoot Derm: Two surgical incisions: Mild anguinous drainage noted to dressing. #1 longitudinal surgical incision noted to the plantar aspect of the sub metatarsal 2 measuring approximately 4 x .3 cm and #2 surgical incision measuring approximately 2 cm x .3 cm on the dorsum of the foot at the level of the 2nd metatarsal head. Incisions connect forming a tunnel through the forefoot. Wound base is 100% granular with minimal sanguinous drainage when expressed, no fluctuance noted, no purulence, no active bleeding, no malodor, no tunneling but tracking present to the plantar surgical incision from the dorsal incision. (+) probe to bone down to both 2nd and 3rd metatarsals. no clinical suspicion of active infection at this time. Neuro: gross and protective sensation diminished Ortho: no pain with palpation to ulceration site, previous healed hallux amputation - Neurological Exam Neurological Exam: Alert, Awake - Psychiatric Exam Psychiatric exam: Normal Affect, Normal Mood Assessment and Plan - Assessment and Plan (Free Text) Assessment: 72 y/o male 15 days s/p debridement of right foot diabetic ulceration with sinus tract Plan: Patient seen and evaluated at bedside alongside attending, Dr. Chowdhury Afebrile, WBC trending downwards 7.6 MRI of foot reviewed: possible OM of the 2nd and 3rd metatarsals and proximal phalanges Continue abx per ID - Daptomycin, Linezolid, Meropenem Continue local wound care - Dakin's cleanse, 1/" iodoform packing, DSD Continue multipodus boots at all times while in bed At this time, TMA is clinically indicated due to osteomyelitis of 2nd and 3rd mets and proximal phalanges with (+) probe to bone -Will hold off on surgical intervention as patient is not a stable candidate at this time Podiatry to continue to follow patient while in house <Walker Chowdhury - Last Filed: 12/11/17 16:21> Objective - Vital Signs/Intake and Output Vital Signs (last 24 hours): Temp Pulse Resp BP Pulse Ox 97.9 F 83 9 L 141/64 91 L 12/11/17 13:00 12/11/17 13:00 12/11/17 13:00 12/11/17 13:00 12/11/17 13:00 Intake and Output: 12/11/17 12/11/17 06:59 18:59 Intake Total 1205 Output Total 50 Balance 1155 - Medications Medications: Current Medications Acetaminophen (Tylenol 325mg Tab) 650 mg PO Q6H PRN PRN Reason: Fever >100.4 F Albuterol/Ipratropium (Duoneb 3 Mg/0.5 Mg (3 Ml) Ud) 3 ml IH [id number] [facility] Last Admin: 12/11/17 14:27 Dose: 3 ml Aspirin (Aspirin Chewable) 81 mg PO DAILY [facility] Last Admin: 12/11/17 10:47 Dose: 81 mg Atorvastatin Calcium (Lipitor) 10 mg PO DIN [facility] Last Admin: 12/10/17 16:53 Dose: 10 mg Heparin Sodium (Porcine) (Heparin) 5,000 units SC Q8 GERRY PRN Reason: Protocol Last Admin: 12/11/17 15:15 Dose: 5,000 units Hydralazine HCl (Apresoline) 25 mg PO Q4 PRN PRN Reason: Other Hydralazine HCl (Apresoline) 10 mg IVP Q6 PRN PRN Reason: SBP >150 and/or DBP >90 Last Admin: 12/04/17 21:55 Dose: 10 mg Hydrocortisone Sodium Succinate (Solu-Cortef) 50 mg IVP Q12 [facility] Last Admin: 12/11/17 10:47 Dose: 50 mg Meropenem 500 mg/ Sodium (Chloride) 50 mls @ 100 mls/hr IVPB Q12 [facility] PRN Reason: Protocol Stop: 12/13/17 18:52 Last Admin: 12/11/17 10:38 Dose: 100 mls/hr Linezolid (Zyvox 600mg/300ml D5w) 600 mg in 300 mls @ 200 mls/hr IVPB Q12 [facility] PRN Reason: Protocol Stop: 12/14/17 22:01 Last Admin: 12/11/17 10:49 Dose: 200 mls/hr Daptomycin 690 mg/ Sodium (Chloride) 100 mls @ 200 mls/hr IV QOTHERDAY [facility] Stop: 12/29/17 15:01 Insulin Detemir (Levemir) 50 unit SC HS [facility] Insulin Human Regular (Humulin R High) 0 units SC Q4 GERRY PRN Reason: Protocol Last Admin: 12/11/17 13:14 Dose: 4 units Levalbuterol HCl (Xopenex) 0.63 mg IH [id number] [facility] Last Admin: 12/05/17 08:01 Dose: 0.63 mg Levalbuterol HCl (Xopenex) 1.25 mg IH [id number] PRN PRN Reason: Shortness of Breath Last Admin: 12/06/17 05:35 Dose: 1.25 mg Metoprolol Tartrate (Lopressor) 5 mg IVP Q6H [facility] Last Admin: 12/10/17 09:25 Dose: Not Given Metoprolol Tartrate (Lopressor) 25 mg PO BID [facility] Midazolam HCl (Versed Inj) 4 mg IVP Q4 PRN PRN Reason: Agitation Last Admin: 12/07/17 17:44 Dose: 4 mg Multivitamins (Thera Tab) 1 tab PO DAILY [facility] Last Admin: 12/11/17 11:04 Dose: 1 tab Pantoprazole Sodium (Protonix Inj) 40 mg IVP DAILY [facility] Last Admin: 12/11/17 11:01 Dose: 40 mg Sodium Hypochlorite (Dakins Solution 0.5%) 0 ml TOP DAILY [facility] Last Admin: 12/11/17 16:06 Dose: Not Given - Labs Labs: 12/11/17 06:05 12/11/17 06:05 PT 12.7 SECONDS (9.4-12.5) H 12/08/17 08:30 INR 1.10 (0.93-1.08) H 12/08/17 08:30 APTT 30.7 Seconds (25.1-36.5) 12/08/17 08:30 Attending/Attestation - Attestation I have personally seen and examined this patient.: Yes I have fully participated in the care of the patient.: Yes I have reviewed all pertinent clinical information, including history, physical exam and plan: Yes
--- NOTE | 2017-12-11 16:31 | CP.PCM.PN ---
Subjective - Date & Time of Evaluation Date of Evaluation: 12/11/17 Time of Evaluation: 16:30 - Subjective Subjective: Nephrology Consultation Note: Assessment: critical acute hypoxic respi failure with fluid overload/CHF pattern/pulm edema And ARDS status post right heart oligoanuric Acute Kidney Injury (N17.9) likely due to sepsis, wound infection>> leading to ATN, possible AIN due to Abx/infection But urine eos negative DM, HTN (I12.0) active cigar smoker, obesity toe osteomyelitis with sepsis, Mitral valve infective endocarditis Plan will plan for HD tomorrow. no acute need today maintain hemodynamics stable. hold ACEI/ARB due to ROHINI. hold [employer] Monitor Input/Output, daily weights and renal function with basic metabolic panel Dose meds/antibiotics for reduced GFR/HD status. Avoid fleets enema/magnesium based laxatives. Avoid nephrotoxins/NSAIDs/ iodinated contrast (unless needed emergently) Glycemic control Further work up/management as per primary team Thanks for allowing me to participate in care of your patient. Will follow patient with you. Please call if any Qs. d/w team Dr Caden Muller Office: [phone] HPI: Pt is a 72 M with hx of diabetes Mellitus (9 years), hypertension (years) , active cigar smoker, obesity and Rt foot infection, recent ROHINI (peaked cr 2.1 ) presented with complaints of Rt foot wound infection. renal consult for ROHINI eval. his cr 1.1 in 2017 and at d/c last hospitalization Denies OTC/herbal meds or NSAIDs No recent iodinated contrast exposure. episodes of low BP noted. ROS: Patient is lethargic, extubated Physical Examination: General Appearance:. obese. ill appearing. Vitals reviewed and noted as below Head; Atraumatic, normocephalic ENT: extubated EYES: Pupils are equal, round and reactive to light accommodation. Sclera is anicteric. Neck; supple no lymphadenopathy, no thyromegaly or bruit Lungs: normal respiratory rate/effort. Breath sounds bilateral clear anteriorly Heart: Normal rate. s1s2 normal. No rub or gallop. Extremities: Rt pedal edema. No varicose veins. Rt foot dressed. Neurological: Patient is lethargic Skin: Warm and dry. Normal turgor. chronic psoriasis rash. Palpitation: Normal elasticity for age. Abdomen: Abdomen is soft. Bowel sounds +. There is no abdominal tenderness, no guarding/rigidity no organomegaly Psych: Unable MSK: no joint tenderness or swelling. Digits and nails normal, no deformity : kidney or bladder not palpable. has aquino Labs/imaging reviewed. Past medical history, past surgical history, family history, social history, allergy reviewed and noted as below Family hx: no hx of CKD. Rest non-contributory workup: renal SONO: WNL UA large blood Objective - Vital Signs/Intake and Output Vital Signs (last 24 hours): Temp Pulse Resp BP Pulse Ox 97.9 F 83 9 L 141/64 91 L 12/11/17 13:00 12/11/17 13:00 12/11/17 13:00 12/11/17 13:00 12/11/17 13:00 Intake and Output: 12/11/17 12/11/17 06:59 18:59 Intake Total 1205 Output Total 50 Balance 1155 - Medications Medications: Current Medications Acetaminophen (Tylenol 325mg Tab) 650 mg PO Q6H PRN PRN Reason: Fever >100.4 F Albuterol/Ipratropium (Duoneb 3 Mg/0.5 Mg (3 Ml) Ud) 3 ml IH [id number] [facility] Last Admin: 12/11/17 14:27 Dose: 3 ml Aspirin (Aspirin Chewable) 81 mg PO DAILY [facility] Last Admin: 12/11/17 10:47 Dose: 81 mg Atorvastatin Calcium (Lipitor) 10 mg PO DIN [facility] Last Admin: 12/10/17 16:53 Dose: 10 mg Heparin Sodium (Porcine) (Heparin) 5,000 units SC Q8 [facility]ERRY PRN Reason: Protocol Last Admin: 12/11/17 15:15 Dose: 5,000 units Hydralazine HCl (Apresoline) 25 mg PO Q4 PRN PRN Reason: Other Hydralazine HCl (Apresoline) 10 mg IVP Q6 PRN PRN Reason: SBP >150 and/or DBP >90 Last Admin: 12/04/17 21:55 Dose: 10 mg Hydrocortisone Sodium Succinate (Solu-Cortef) 50 mg IVP Q12 [facility] Last Admin: 12/11/17 10:47 Dose: 50 mg Meropenem 500 mg/ Sodium (Chloride) 50 mls @ 100 mls/hr IVPB Q12 [facility] PRN Reason: Protocol Stop: 12/13/17 18:52 Last Admin: 12/11/17 10:38 Dose: 100 mls/hr Linezolid (Zyvox 600mg/300ml D5w) 600 mg in 300 mls @ 200 mls/hr IVPB Q12 [facility] PRN Reason: Protocol Stop: 12/14/17 22:01 Last Admin: 12/11/17 10:49 Dose: 200 mls/hr Daptomycin 690 mg/ Sodium (Chloride) 100 mls @ 200 mls/hr IV QOTHERDAY [facility]PL[facility] Stop: 12/29/17 15:01 Insulin Detemir (Levemir) 50 unit SC HS [facility] Insulin Human Regular (Humulin R High) 0 units SC Q4 [facility] PRN Reason: Protocol Last Admin: 12/11/17 13:14 Dose: 4 units Levalbuterol HCl (Xopenex) 0.63 mg IH [id number] [facility] Last Admin: 12/05/17 08:01 Dose: 0.63 mg Levalbuterol HCl (Xopenex) 1.25 mg IH [id number] PRN PRN Reason: Shortness of Breath Last Admin: 12/06/17 05:35 Dose: 1.25 mg Metoprolol Tartrate (Lopressor) 5 mg IVP Q6H [facility] Last Admin: 12/10/17 09:25 Dose: Not Given Metoprolol Tartrate (Lopressor) 25 mg PO BID [facility] Midazolam HCl (Versed Inj) 4 mg IVP Q4 PRN PRN Reason: Agitation Last Admin: 12/07/17 17:44 Dose: 4 mg Multivitamins (Thera Tab) 1 tab PO DAILY [facility] Last Admin: 12/11/17 11:04 Dose: 1 tab Pantoprazole Sodium (Protonix Inj) 40 mg IVP DAILY [facility] Last Admin: 12/11/17 11:01 Dose: 40 mg Sodium Hypochlorite (Dakins Solution 0.5%) 0 ml TOP DAILY [facility] Last Admin: 12/11/17 16:06 Dose: Not Given - Labs Labs: 12/11/17 06:05 12/11/17 06:05 PT 12.7 SECONDS (9.4-12.5) H 12/08/17 08:30 INR 1.10 (0.93-1.08) H 12/08/17 08:30 APTT 30.7 Seconds (25.1-36.5) 12/08/17 08:30
[2017-12-11] MEDS: Insulin Detemir 100 units/ml Vial (Levemir) SC SCH (21:46)
[2017-12-12] MEDS: Albuterol-Ipratrop 3 mg / 0.5 (3 ml) UD IH SCH ×4 (02:52→19:45)
[2017-12-12 05:26] LABS: ARTERIAL BLOOD GAS HCO3 23.5 mmol/L (21-28); ARTERIAL BLOOD GAS HEMOGLOBIN 9.3 g/dL (11.7-17.4); ARTERIAL BLOOD GAS O2 CAPACITY 12.8 mL/dl (16-24); ARTERIAL BLOOD GAS O2 CONTENT 12.6 ML/dl (15-23); ARTERIAL BLOOD GAS O2 SAT 98.1 % (95-98); ARTERIAL BLOOD GAS PCO2 33 mm/Hg (35-45); ARTERIAL BLOOD GAS PH 7.46 (7.35-7.45); ARTERIAL BLOOD GAS TCO2 24.5 mmol.L (22-28)
[2017-12-12] MEDS: Insulin Reg-HIGH-Coverage SC SCH ×6 (05:40→20:12)
[2017-12-12 06:50] LABS: ALB/GLOB RATIO 0.7 (1.1-1.8); ALBUMIN 2.5 g/dL (3.0-4.8); CALCIUM 8.4 mg/dL (8.4-10.5)
[2017-12-12 07:05] LABS: CK-MB 1.9 ng/mL (0.0-3.6)
[2017-12-12 07:35] LABS: HEMOGLOBIN 9.2 g/dL (14.0-18.0); MEAN CELL VOLUME 86.9 fl (80.0-105.0); MEAN CORPUSCULAR HGB CONC 32.3 g/dl (31.0-37.0); MEAN PLATELET VOLUME 9.8 fl (7.0-11.0); RBC 3.28 10^6/uL (3.5-6.1); RED CELL DISTRIBUTION WIDTH 14.2 % (11.5-14.5); WHITE BLOOD COUNT 7.7 10^3/ul (4.5-11.0)
--- NOTE | 2017-12-12 07:53 | RAD ---
HISTORY: f/u COMPARISON: Portable chest 12/11/2017. FINDINGS: Patient appears to been extubated with nasogastric tube also now removed. LUNGS: Improved aeration seen in the left base with prior airspace disease diminished and better definition identified at the left hemidiaphragm in the interval. Results improved aeration at the mid to inferior right lung zone with borderline residual right infrahilar infiltrate. PLEURA: Questionable left pleural effusion. None is seen the right. No pneumothorax bilaterally. CARDIOVASCULAR: Further improvement in CHF pattern is identified. Cardiac size is normal. OSSEOUS STRUCTURES: No significant abnormalities. VISUALIZED UPPER ABDOMEN: Surgical clips again noted right upper quadrant abdomen. OTHER FINDINGS: None. IMPRESSION: Improved CHF and bilateral basilar airspace disease. Nasogastric and endotracheal tubes apparently now removed.
[2017-12-12] MEDS ORDERED: Darbepoetin Alfa 60 mcg/ml Inj IVP ONE (09:48)
[2017-12-12] MEDS: Meropenem 500 MG in Sodium Chloride 0.9% 50 ML IVPB SCH ×2 (09:51→22:55)
[2017-12-12] MEDS: Linezolid 600 mg in D5W 300 ml 600 MG/300 ML BAG IVPB SCH ×2 (09:52→22:56)
[2017-12-12] MEDS: Dakin's Topical 0.5%-Full Strength (480 ml) TOP SCH (10:05)
[2017-12-12] MEDS: Multivitamin Therapeutic Tab PO SCH (10:05)
--- NOTE | 2017-12-12 10:49 | CP.CCUPN ---
<Enrique Brand - Last Filed: 12/12/17 10:45> CCU Subjective - Physician Review Subjective (Free Text): Patient seen and examined at bedside. Patient states he feels lethargic, but breathing status has improved. Patient removed his femoral dialysis catheter. Denies chest pain, shortness of breath, nausea, vomiting, diarrhea, fever, chills. CCU Objective - Vital Signs / Intake & Output Vital Signs (Last 4 hours): Vital Signs Temp Pulse Resp BP Pulse Ox 12/12/17 09:35 97.4 F L 12/12/17 09:31 82 16 100 12/12/17 09:30 130/68 12/12/17 09:29 85 28 H 100 12/12/17 09:28 87 48 H 99 12/12/17 09:27 87 32 H 99 12/12/17 09:26 80 40 H 100 12/12/17 09:25 86 71 H 100 12/12/17 09:24 82 82 H 100 12/12/17 09:23 86 84 H 100 12/12/17 09:22 91 H 25 H 99 12/12/17 09:21 86 26 H 99 12/12/17 09:20 82 20 99 12/12/17 09:19 95 H 42 H 99 12/12/17 09:18 90 95 H 100 12/12/17 09:17 89 45 H 100 12/12/17 09:16 87 47 H 100 12/12/17 09:15 93 H 20 100 12/12/17 09:14 85 13 100 12/12/17 09:13 84 14 100 12/12/17 09:12 88 14 100 12/12/17 09:11 86 13 100 12/12/17 09:10 81 13 100 12/12/17 09:09 84 16 100 12/12/17 09:08 86 19 100 12/12/17 09:07 95 H 21 100 12/12/17 09:06 94 H 38 H 100 12/12/17 09:05 90 57 H 100 12/12/17 09:04 87 100 12/12/17 09:03 89 100 12/12/17 09:02 89 31 H 100 12/12/17 09:01 85 73 H 100 12/12/17 09:00 94 H 118/65 12/12/17 08:59 89 21 100 12/12/17 08:58 92 H 14 100 12/12/17 08:57 89 20 100 12/12/17 08:56 96 H 41 H 12/12/17 08:55 92 H 58 H 78 L 12/12/17 08:54 110 H 28 H 12/12/17 08:53 91 H 19 12/12/17 08:52 87 98 12/12/17 08:51 93 H 28 H 100 12/12/17 08:50 105 H 60 H 95 12/12/17 08:49 96 H 107 H 97 12/12/17 07:20 78 Intake and Output (Last 8hrs): Intake & Output 12/11/17 12/12/17 12/12/17 22:59 06:59 14:59 Intake Total 350 400 Output Total 150 450 Balance 200 -50 Intake: IV 350 400 Right Femoral 350 400 Output: Urine 150 450 Urethral (Ibrahim) 150 450 Other: # Bowel Movements 1 1 - Physical Exam Head: Positive for: Atraumatic, Normocephalic Pupils: Positive for: PERRL Extroacular Muscles: Positive for: EOMI Conjunctiva: Positive for: Normal Mouth: Positive for: Moist Mucous Membranes Neck: Positive for: Normal Range of Motion Respiratory/Chest: Positive for: Good Air Exchange, Decreased Breath Sounds. Negative for: Respiratory Distress, Accessory Muscle Use Cardiovascular: Positive for: Regular Rate and Rhythm, Normal S1, S2 Abdomen: Positive for: Normal Bowel Sounds. Negative for: Tenderness, Distention, Peritoneal Signs Upper Extremity: Positive for: Normal Inspection, Edema. Negative for: Cyanosis Lower Extremity: Positive for: Other (Right lower ext bandaged ) Neurological: Positive for: GCS=15, CN II-XII Intact, Speech Normal Skin: Positive for: Warm, Dry, Normal Color. Negative for: Rashes Psychiatric: Positive for: Alert, Oriented x 3, Normal Insight, Normal Concentration - Medications Active Medications: Active Medications Generic Name Dose Route Start Last Admin Trade Name Freq PRN Reason Stop Dose Admin Acetaminophen 650 mg 12/01/17 10:16 Tylenol 325mg Tab PO Q6H PRN Fever >100.4 F Albuterol/Ipratropium 3 ml 12/05/17 14:00 12/12/17 07:16 Duoneb 3 Mg/0.5 Mg (3 Ml) Ud IH 3 ml [id number] GERRY Administration Aspirin 81 mg 12/01/17 10:30 12/12/17 10:05 Aspirin Chewable PO Not Given DAILY GERRY Atorvastatin Calcium 10 mg 12/01/17 17:00 12/11/17 18:02 Lipitor PO Not Given DIN GERRY Heparin Sodium (Porcine) 5,000 units 12/04/17 22:00 12/12/17 05:41 Heparin SC 5,000 units Q8 GERRY Administration Protocol Hydralazine HCl 25 mg 12/03/17 09:28 Apresoline PO Q4 PRN Other Hydralazine HCl 10 mg 12/04/17 21:43 12/04/17 21:55 Apresoline IVP 10 mg Q6 PRN Administration SBP >150 and/or DBP >90 Hydrocortisone Sodium Succinate 50 mg 12/11/17 10:00 12/12/17 09:51 Solu-Cortef IVP 50 mg Q12 GERRY Administration Meropenem 500 mg/ Sodium 50 mls @ 100 mls/hr 12/04/17 18:51 12/12/17 09:51 Chloride IVPB 12/13/17 18:52 100 mls/hr Q12 GERRY Administration Protocol Linezolid 600 mg in 300 mls @ 200 mls/hr 12/07/17 22:00 12/12/17 09:52 Zyvox 600mg/300ml D5w IVPB 12/14/17 22:01 200 mls/hr Q12 GERRY Administration Protocol Daptomycin 690 mg/ Sodium 100 mls @ 200 mls/hr 12/12/17 10:00 12/12/17 09:52 Chloride IV 12/29/17 15:01 200 mls/hr QOTHERDAY GERRY Administration Insulin Detemir 50 unit 12/11/17 08:53 12/11/17 21:46 Levemir SC 50 unit HS GERRY Administration Insulin Human Regular 0 units 12/08/17 16:00 12/12/17 09:17 Humulin R High SC 2 units Q4 GERRY Administration Protocol Levalbuterol HCl 0.63 mg 12/01/17 14:00 12/05/17 08:01 Xopenex IH 0.63 mg [id number] GERRY Administration Levalbuterol HCl 1.25 mg 12/01/17 10:16 12/06/17 05:35 Xopenex IH 1.25 mg [id number] PRN Administration Shortness of Breath Metoprolol Tartrate 5 mg 12/05/17 09:00 12/10/17 09:25 Lopressor IVP Not Given Q6H GERRY Metoprolol Tartrate 25 mg 12/07/17 18:00 Lopressor PO BID GERRY Midazolam HCl 4 mg 12/07/17 16:04 12/07/17 17:44 Versed Inj IVP 4 mg Q4 PRN Administration Agitation Multivitamins 1 tab 12/02/17 10:00 12/12/17 10:05 Thera Tab PO Not Given DAILY GERRY Pantoprazole Sodium 40 mg 12/08/17 10:00 12/12/17 09:51 Protonix Inj IVP 40 mg DAILY GERRY Administration Sodium Hypochlorite 0 ml 12/06/17 10:00 12/12/17 10:05 Dakins Solution 0.5% TOP Not Given DAILY GERRY - Patient Studies Lab Studies: Lab Studies 12/12/17 12/12/17 12/12/17 Range/Units 05:37 05:30 05:30 WBC 7.7 (4.5-11.0) 10^3/ul RBC 3.28 L (3.5-6.1) 10^6/uL Hgb 9.2 L (14.0-18.0) g/dL Hct 28.5 L (42.0-52.0) % MCV 86.9 (80.0-105.0) fl MCH 28.0 (25.0-35.0) pg MCHC 32.3 (31.0-37.0) g/dl RDW 14.2 (11.5-14.5) % Plt Count 241 (120.0-450.0) 10^3/uL MPV 9.8 (7.0-11.0) fl pCO2 (35-45) mm/Hg pO2 (80-100) mm/Hg HCO3 (21-28) mmol/L ABG pH (7.35-7.45) ABG Total CO2 (22-28) mmol.L ABG O2 Saturation (95-98) % ABG O2 Content (15-23) ML/dl ABG Base Excess (-2.0-3.0) mmol/L ABG Hemoglobin (11.7-17.4) g/dL ABG Carboxyhemoglobin (0.5-1.5) % POC ABG HHb (Measured) (0-5) % ABG Methemoglobin (0.0-3.0) % ABG O2 Capacity (16-24) mL/dl Hgb O2 Saturation (95.0-98.0) % FiO2 % Sodium 140 (132-148) mmol/L Potassium 4.0 (3.6-5.0) mmol/L Chloride 103 (98-107) mmol/L Carbon Dioxide 25 (21-33) mmol/L Anion Gap 17 (10-20) BUN 112 H (7-21) mg/dL Creatinine 6.7 H (0.8-1.5) mg/dl Est GFR ( Amer) 10 Est GFR (Non-Af Amer) 8 POC Glucose (mg/dL) 170 H (65-110) mg/dL Random Glucose 175 H (70-110) mg/dL Calcium 8.4 (8.4-10.5) mg/dL Total Bilirubin 0.4 (0.2-1.3) mg/dL AST 57 (17-59) U/L ALT 45 (7-56) U/L Alkaline Phosphatase 162 H (38-126) U/L Total Creatine Kinase 293 H (35-230) U/L CK-MB (CK-2) 1.9 (0.0-3.6) ng/mL CK-MB (CK-2) % Cancelled Total Protein 6.2 (5.8-8.3) g/dL Albumin 2.5 L (3.0-4.8) g/dL Globulin 3.7 gm/dL Albumin/Globulin Ratio 0.7 L (1.1-1.8) 12/12/17 12/12/17 12/11/17 Range/Units 05:20 00:04 21:42 WBC (4.5-11.0) 10^3/ul RBC (3.5-6.1) 10^6/uL Hgb (14.0-18.0) g/dL Hct (42.0-52.0) % MCV (80.0-105.0) fl MCH (25.0-35.0) pg MCHC (31.0-37.0) g/dl RDW (11.5-14.5) % Plt Count (120.0-450.0) 10^3/uL MPV (7.0-11.0) fl pCO2 33 L (35-45) mm/Hg pO2 81.0 (80-100) mm/Hg HCO3 23.5 (21-28) mmol/L ABG pH 7.46 H (7.35-7.45) ABG Total CO2 24.5 (22-28) mmol.L ABG O2 Saturation 98.1 H (95-98) % ABG O2 Content 12.6 L (15-23) ML/dl ABG Base Excess 0.0 (-2.0-3.0) mmol/L ABG Hemoglobin 9.3 L (11.7-17.4) g/dL ABG Carboxyhemoglobin 1.5 (0.5-1.5) % POC ABG HHb (Measured) 1.9 (0-5) % ABG Methemoglobin 0.9 (0.0-3.0) % ABG O2 Capacity 12.8 L (16-24) mL/dl Hgb O2 Saturation 95.7 (95.0-98.0) % FiO2 60.0 % Sodium (132-148) mmol/L Potassium (3.6-5.0) mmol/L Chloride (98-107) mmol/L Carbon Dioxide (21-33) mmol/L Anion Gap (10-20) BUN (7-21) mg/dL Creatinine (0.8-1.5) mg/dl Est GFR ( Amer) Est GFR (Non-Af Amer) POC Glucose (mg/dL) 236 H 208 H (65-110) mg/dL Random Glucose (70-110) mg/dL Calcium (8.4-10.5) mg/dL Total Bilirubin (0.2-1.3) mg/dL AST (17-59) U/L ALT (7-56) U/L Alkaline Phosphatase (38-126) U/L Total Creatine Kinase (35-230) U/L CK-MB (CK-2) (0.0-3.6) ng/mL CK-MB (CK-2) % Total Protein (5.8-8.3) g/dL Albumin (3.0-4.8) g/dL Globulin gm/dL Albumin/Globulin Ratio (1.1-1.8) 12/11/17 12/11/17 Range/Units 16:14 11:38 WBC (4.5-11.0) 10^3/ul RBC (3.5-6.1) 10^6/uL Hgb (14.0-18.0) g/dL Hct (42.0-52.0) % MCV (80.0-105.0) fl MCH (25.0-35.0) pg MCHC (31.0-37.0) g/dl RDW (11.5-14.5) % Plt Count (120.0-450.0) 10^3/uL MPV (7.0-11.0) fl pCO2 (35-45) mm/Hg pO2 (80-100) mm/Hg HCO3 (21-28) mmol/L ABG pH (7.35-7.45) ABG Total CO2 (22-28) mmol.L ABG O2 Saturation (95-98) % ABG O2 Content (15-23) ML/dl ABG Base Excess (-2.0-3.0) mmol/L ABG Hemoglobin (11.7-17.4) g/dL ABG Carboxyhemoglobin (0.5-1.5) % POC ABG HHb (Measured) (0-5) % ABG Methemoglobin (0.0-3.0) % ABG O2 Capacity (16-24) mL/dl Hgb O2 Saturation (95.0-98.0) % FiO2 % Sodium (132-148) mmol/L Potassium (3.6-5.0) mmol/L Chloride (98-107) mmol/L Carbon Dioxide (21-33) mmol/L Anion Gap (10-20) BUN (7-21) mg/dL Creatinine (0.8-1.5) mg/dl Est GFR ( Amer) Est GFR (Non-Af Amer) POC Glucose (mg/dL) 166 H 223 H (65-110) mg/dL Random Glucose (70-110) mg/dL Calcium (8.4-10.5) mg/dL Total Bilirubin (0.2-1.3) mg/dL AST (17-59) U/L ALT (7-56) U/L Alkaline Phosphatase (38-126) U/L Total Creatine Kinase (35-230) U/L CK-MB (CK-2) (0.0-3.6) ng/mL CK-MB (CK-2) % Total Protein (5.8-8.3) g/dL Albumin (3.0-4.8) g/dL Globulin gm/dL Albumin/Globulin Ratio (1.1-1.8) Laboratory Results - last 24 hr 12/11/17 12/11/17 12/11/17 11:38 16:14 21:42 WBC RBC Hgb Hct MCV MCH MCHC RDW Plt Count MPV pCO2 pO2 HCO3 ABG pH ABG Total CO2 ABG O2 Saturation ABG O2 Content ABG Base Excess ABG Hemoglobin ABG Carboxyhemoglobin POC ABG HHb (Measured) ABG Methemoglobin ABG O2 Capacity Hgb O2 Saturation FiO2 Sodium Potassium Chloride Carbon Dioxide Anion Gap BUN Creatinine Est GFR ( Amer) Est GFR (Non-Af Amer) POC Glucose (mg/dL) 223 H 166 H 208 H Random Glucose Calcium Total Bilirubin AST ALT Alkaline Phosphatase Total Creatine Kinase CK-MB (CK-2) CK-MB (CK-2) % Total Protein Albumin Globulin Albumin/Globulin Ratio 12/12/17 12/12/17 12/12/17 00:04 05:20 05:30 WBC 7.7 RBC 3.28 L Hgb 9.2 L Hct 28.5 L MCV 86.9 MCH 28.0 MCHC 32.3 RDW 14.2 Plt Count 241 MPV 9.8 pCO2 33 L pO2 81.0 HCO3 23.5 ABG pH 7.46 H ABG Total CO2 24.5 ABG O2 Saturation 98.1 H ABG O2 Content 12.6 L ABG Base Excess 0.0 ABG Hemoglobin 9.3 L ABG Carboxyhemoglobin 1.5 POC ABG HHb (Measured) 1.9 ABG Methemoglobin 0.9 ABG O2 Capacity 12.8 L Hgb O2 Saturation 95.7 FiO2 60.0 Sodium Potassium Chloride Carbon Dioxide Anion Gap BUN Creatinine Est GFR ( Amer) Est GFR (Non-Af Amer) POC Glucose (mg/dL) 236 H Random Glucose Calcium Total Bilirubin AST ALT Alkaline Phosphatase Total Creatine Kinase CK-MB (CK-2) CK-MB (CK-2) % Total Protein Albumin Globulin Albumin/Globulin Ratio 12/12/17 12/12/17 05:30 05:37 WBC RBC Hgb Hct MCV MCH MCHC RDW Plt Count MPV pCO2 pO2 HCO3 ABG pH ABG Total CO2 ABG O2 Saturation ABG O2 Content ABG Base Excess ABG Hemoglobin ABG Carboxyhemoglobin POC ABG HHb (Measured) ABG Methemoglobin ABG O2 Capacity Hgb O2 Saturation FiO2 Sodium 140 Potassium 4.0 Chloride 103 Carbon Dioxide 25 Anion Gap 17 BUN 112 H Creatinine 6.7 H Est GFR ( Amer) 10 Est GFR (Non-Af Amer) 8 POC Glucose (mg/dL) 170 H Random Glucose 175 H Calcium 8.4 Total Bilirubin 0.4 AST 57 ALT 45 Alkaline Phosphatase 162 H Total Creatine Kinase 293 H CK-MB (CK-2) 1.9 CK-MB (CK-2) % Cancelled Total Protein 6.2 Albumin 2.5 L Globulin 3.7 Albumin/Globulin Ratio 0.7 L Fingerstick Blood Sugar Results: 178 Critical Care Progress Note - Nutrition Nutrition: Nutrition Category Date Time Status NPO Diet [DIET] Diets 12/08/17 Breakfast Ordered Assessment/Plan - Assessment and Plan (Free Text) Plan: 72 year old male with past medical history of DM, HTN, Obesity, Mitral valve Infective Endocarditis, Osteomyelitis of right foot 2nd and 3rd toe, and ROHINI presents with MODS in the setting of ARDS, acute renal failure, osteomyelitis, and infective endocarditis. Patient will have tunnel catheter placed by IR and receive dialysis today. Patient to remain on BIPAP at night. Patient is hemodynamically stable. He will be transferred to Telemetry. Continue current medical regimen. Neuro: AAOx3 Cardio: Continue abx as per ID Maintain hemodynamic stability Maintain MAP > 65 Cardiology consulted Pulm: Maintain O2 sat > 90% BIPAP at night GI: Protonix NPO Nephro: Klebsiella UTI Dialysis after tunnel catheter removal Avoid nephrotoxic medications Maintain euvolemia Heme/ID: Continue abx as per ID MRSA osteomyelitis Afebrile, no leukocytosis Taper steroids ID following Heparin for DVT prophylaxis Endo: ISS Maintain euglycemia Cathie, PGY-2 <Yaniv Marino - Last Filed: 12/12/17 13:41> CCU Objective - Vital Signs / Intake & Output Vital Signs (Last 4 hours): Vital Signs Pulse Resp BP Pulse Ox 12/12/17 12:55 99 18 12:54 102 H 97 18 12:53 89 16 98 18 12:52 24 98 18 12:51 98 18 12:50 95 H 22 98 18 12:49 101 H 20 98 18 12:48 94 H 98 18 12:47 91 H 58 H 98 12/12/17 12:46 91 H 44 H 98 12/12/17 12:45 96 H 20 98 18 12:44 92 H 16 98 18 12:43 97 H 18 99 12/12/17 12:42 98 H 18 99 12/12/17 12:41 100 H 18 98 12/12/17 12:40 96 H 18 99 12/12/17 12:39 101 H 19 99 12/12/17 12:38 84 60 H 99 12/12/17 12:37 91 H 15 99 12/12/17 12:36 85 99 12/12/17 12:35 93 H 66 H 99 18 12:34 83 16 99 18 12:33 94 H 87 H 99 18 12:32 86 48 H 99 18 12:31 93 H 63 H 99 18 12:30 83 97 18 12:29 93 H 79 H 98 12/12/17 12:28 90 44 H 98 18 12:27 91 H 30 H 98 18 12:26 90 16 99 18 12:25 90 15 99 18 12:24 97 H 25 H 99 18 12:23 96 H 14 99 18 12:22 81 15 99 18 12:21 87 16 99 18 12:20 90 15 99 18 12:19 82 48 H 99 18 12:18 90 17 99 18 12:17 101 H 25 H 98 18 12:16 91 H 40 H 99 18 12:15 90 70 H 99 18 12:14 88 40 H 99 18 12:13 96 H 32 H 99 04/04/18 12:12 89 14 99 12/12/17 12:11 90 22 100 12/12/17 12:10 85 14 99 12/12/17 12:09 92 H 34 H 99 12/12/17 12:08 104 H 25 H 99 12/12/17 12:07 93 H 14 99 12/12/17 12:06 95 H 16 99 12/12/17 12:05 91 H 21 99 12/12/17 12:04 88 35 H 99 12/12/17 12:03 96 H 52 H 99 12/12/17 12:02 90 28 H 98 12/12/17 12:01 93 H 55 H 98 12/12/17 12:00 90 161/93 H 12/12/17 11:59 90 36 H 99 12/12/17 11:58 87 14 100 12/12/17 11:57 106 H 17 100 12/12/17 11:56 87 15 99 12/12/17 11:55 94 H 21 99 12/12/17 11:54 99 H 17 99 12/12/17 11:53 92 H 16 99 12/12/17 11:52 86 13 99 12/12/17 11:51 84 15 99 12/12/17 11:50 86 16 99 12/12/17 11:49 108 H 19 99 12/12/17 11:48 86 17 99 12/12/17 11:47 99 H 18 99 12/12/17 11:46 88 17 99 12/12/17 11:45 91 H 36 H 99 12/12/17 11:44 96 H 17 99 12/12/17 11:43 91 H 16 99 12/12/17 11:34 90 18 99 12/12/17 11:32 94 H 99 12/12/17 11:31 92 H 15 99 12/12/17 11:30 152/69 H 12/12/17 11:29 94 H 18 98 12/12/17 11:28 98 H 23 99 12/12/17 11:27 99 H 15 100 12/12/17 11:26 90 22 99 12/12/17 11:25 89 16 99 12/12/17 11:24 103 H 18 99 12/12/17 11:23 92 H 14 99 12/12/17 11:22 92 H 18 99 12/12/17 11:21 90 17 99 12/12/17 11:20 84 24 99 12/12/17 11:19 92 H 18 99 12/12/17 11:18 95 H 18 99 12/12/17 11:17 86 14 99 12/12/17 11:16 83 13 99 12/12/17 11:15 90 15 100 12/12/17 11:14 86 13 99 12/12/17 11:13 84 15 99 12/12/17 11:12 87 19 99 12/12/17 11:11 88 14 99 12/12/17 11:10 92 H 15 99 12/12/17 11:09 94 H 14 99 12/12/17 11:08 92 H 12/12/17 11:07 86 20 12/12/17 11:06 94 H 21 12/12/17 11:05 94 H 24 12/12/17 11:04 91 H 14 12/12/17 11:03 94 H 20 12/12/17 11:02 89 22 12/12/17 11:01 92 H 38 H 12/12/17 11:00 147/66 12/12/17 10:59 91 H 12/12/17 10:58 96 H 25 H 12/12/17 10:57 98 H 12/12/17 10:56 103 H 17 12/12/17 10:55 89 15 12/12/17 10:54 96 H 12/12/17 10:53 92 H 16 12/12/17 10:52 82 16 12/12/17 10:51 95 H 17 12/12/17 10:50 85 16 12/12/17 10:49 92 H 17 12/12/17 10:48 87 22 12/12/17 10:47 86 20 12/12/17 10:46 94 H 15 12/12/17 10:45 100 H 17 Intake and Output (Last 8hrs): Intake & Output 12/11/17 12/12/17 12/12/17 22:59 06:59 14:59 Intake Total 350 400 Output Total 150 450 Balance 200 -50 Intake: IV 350 400 Right Femoral 350 400 Output: Urine 150 450 Urethral (Ibrahim) 150 450 Other: # Bowel Movements 1 1 - Medications Active Medications: Active Medications Generic Name Dose Route Start Last Admin Trade Name Freq PRN Reason Stop Dose Admin Acetaminophen 650 mg 12/01/17 10:16 Tylenol 325mg Tab PO Q6H PRN Fever >100.4 F Albuterol/Ipratropium 3 ml 12/05/17 14:00 12/12/17 13:13 Duoneb 3 Mg/0.5 Mg (3 Ml) Ud IH Not Given [id number] GERRY Aspirin 81 mg 12/01/17 10:30 12/12/17 10:05 Aspirin Chewable PO Not Given DAILY [facility] Atorvastatin Calcium 10 mg 12/01/17 17:00 12/11/17 18:02 Lipitor PO Not Given DIN [facility] Heparin Sodium (Porcine) 5,000 units 12/04/17 22:00 12/12/17 05:41 Heparin SC 5,000 units Q8 GERRY Administration Protocol Hydralazine HCl 25 mg 12/03/17 09:28 Apresoline PO Q4 PRN Other Hydralazine HCl 10 mg 12/04/17 21:43 12/04/17 21:55 Apresoline IVP 10 mg Q6 PRN Administration SBP >150 and/or DBP >90 Hydrocortisone Sodium Succinate 50 mg 12/11/17 10:00 12/12/17 09:51 Solu-Cortef IVP 50 mg Q12 GERRY Administration Meropenem 500 mg/ Sodium 50 mls @ 100 mls/hr 12/04/17 18:51 12/12/17 09:51 Chloride IVPB 12/13/17 18:52 100 mls/hr Q12 GERRY Administration Protocol Linezolid 600 mg in 300 mls @ 200 mls/hr 12/07/17 22:00 12/12/17 09:52 Zyvox 600mg/300ml D5w IVPB 12/14/17 22:01 200 mls/hr Q12 GERRY Administration Protocol Daptomycin 690 mg/ Sodium 100 mls @ 200 mls/hr 12/12/17 10:00 12/12/17 09:52 Chloride IV 12/29/17 15:01 200 mls/hr QOTHERDAY GERRY Administration Insulin Detemir 50 unit 12/11/17 08:53 12/11/17 21:46 Levemir SC 50 unit HS GERRY Administration Insulin Human Regular 0 units 12/08/17 16:00 12/12/17 11:39 Humulin R High SC Not Given Q4 GERRY Protocol Levalbuterol HCl 0.63 mg 12/01/17 14:00 12/05/17 08:01 Xopenex IH 0.63 mg [id number] GERRY Administration Levalbuterol HCl 1.25 mg 12/01/17 10:16 12/06/17 05:35 Xopenex IH 1.25 mg [id number] PRN Administration Shortness of Breath Metoprolol Tartrate 5 mg 12/05/17 09:00 12/10/17 09:25 Lopressor IVP Not Given Q6H GERRY Metoprolol Tartrate 25 mg 12/07/17 18:00 Lopressor PO BID GERRY Midazolam HCl 4 mg 12/07/17 16:04 12/07/17 17:44 Versed Inj IVP 4 mg Q4 PRN Administration Agitation Multivitamins 1 tab 12/02/17 10:00 12/12/17 10:05 Thera Tab PO Not Given DAILY GERRY Pantoprazole Sodium 40 mg 12/08/17 10:00 12/12/17 09:51 Protonix Inj IVP 40 mg DAILY GERRY Administration Sodium Hypochlorite 0 ml 12/06/17 10:00 12/12/17 10:05 Dakins Solution 0.5% TOP Not Given DAILY GERRY - Patient Studies Lab Studies: Lab Studies 12/12/17 12/12/17 12/12/17 Range/Units 05:37 05:30 05:30 WBC 7.7 (4.5-11.0) 10^3/ul RBC 3.28 L (3.5-6.1) 10^6/uL Hgb 9.2 L (14.0-18.0) g/dL Hct 28.5 L (42.0-52.0) % MCV 86.9 (80.0-105.0) fl MCH 28.0 (25.0-35.0) pg MCHC 32.3 (31.0-37.0) g/dl RDW 14.2 (11.5-14.5) % Plt Count 241 (120.0-450.0) 10^3/uL MPV 9.8 (7.0-11.0) fl pCO2 (35-45) mm/Hg pO2 (80-100) mm/Hg HCO3 (21-28) mmol/L ABG pH (7.35-7.45) ABG Total CO2 (22-28) mmol.L ABG O2 Saturation (95-98) % ABG O2 Content (15-23) ML/dl ABG Base Excess (-2.0-3.0) mmol/L ABG Hemoglobin (11.7-17.4) g/dL ABG Carboxyhemoglobin (0.5-1.5) % POC ABG HHb (Measured) (0-5) % ABG Methemoglobin (0.0-3.0) % ABG O2 Capacity (16-24) mL/dl Hgb O2 Saturation (95.0-98.0) % FiO2 % Sodium 140 (132-148) mmol/L Potassium 4.0 (3.6-5.0) mmol/L Chloride 103 (98-107) mmol/L Carbon Dioxide 25 (21-33) mmol/L Anion Gap 17 (10-20) BUN 112 H (7-21) mg/dL Creatinine 6.7 H (0.8-1.5) mg/dl Est GFR ( Amer) 10 Est GFR (Non-Af Amer) 8 POC Glucose (mg/dL) 170 H (65-110) mg/dL Random Glucose 175 H (70-110) mg/dL Calcium 8.4 (8.4-10.5) mg/dL Total Bilirubin 0.4 (0.2-1.3) mg/dL AST 57 (17-59) U/L ALT 45 (7-56) U/L Alkaline Phosphatase 162 H (38-126) U/L Total Creatine Kinase 293 H (35-230) U/L CK-MB (CK-2) 1.9 (0.0-3.6) ng/mL CK-MB (CK-2) % Cancelled Total Protein 6.2 (5.8-8.3) g/dL Albumin 2.5 L (3.0-4.8) g/dL Globulin 3.7 gm/dL Albumin/Globulin Ratio 0.7 L (1.1-1.8) 12/12/17 12/12/17 12/11/17 Range/Units 05:20 00:04 21:42 WBC (4.5-11.0) 10^3/ul RBC (3.5-6.1) 10^6/uL Hgb (14.0-18.0) g/dL Hct (42.0-52.0) % MCV (80.0-105.0) fl MCH (25.0-35.0) pg MCHC (31.0-37.0) g/dl RDW (11.5-14.5) % Plt Count (120.0-450.0) 10^3/uL MPV (7.0-11.0) fl pCO2 33 L (35-45) mm/Hg pO2 81.0 (80-100) mm/Hg HCO3 23.5 (21-28) mmol/L ABG pH 7.46 H (7.35-7.45) ABG Total CO2 24.5 (22-28) mmol.L ABG O2 Saturation 98.1 H (95-98) % ABG O2 Content 12.6 L (15-23) ML/dl ABG Base Excess 0.0 (-2.0-3.0) mmol/L ABG Hemoglobin 9.3 L (11.7-17.4) g/dL ABG Carboxyhemoglobin 1.5 (0.5-1.5) % POC ABG HHb (Measured) 1.9 (0-5) % ABG Methemoglobin 0.9 (0.0-3.0) % ABG O2 Capacity 12.8 L (16-24) mL/dl Hgb O2 Saturation 95.7 (95.0-98.0) % FiO2 60.0 % Sodium (132-148) mmol/L Potassium (3.6-5.0) mmol/L Chloride (98-107) mmol/L Carbon Dioxide (21-33) mmol/L Anion Gap (10-20) BUN (7-21) mg/dL Creatinine (0.8-1.5) mg/dl Est GFR ( Amer) Est GFR (Non-Af Amer) POC Glucose (mg/dL) 236 H 208 H (65-110) mg/dL Random Glucose (70-110) mg/dL Calcium (8.4-10.5) mg/dL Total Bilirubin (0.2-1.3) mg/dL AST (17-59) U/L ALT (7-56) U/L Alkaline Phosphatase (38-126) U/L Total Creatine Kinase (35-230) U/L CK-MB (CK-2) (0.0-3.6) ng/mL CK-MB (CK-2) % Total Protein (5.8-8.3) g/dL Albumin (3.0-4.8) g/dL Globulin gm/dL Albumin/Globulin Ratio (1.1-1.8) 12/11/17 12/11/17 Range/Units 16:14 11:38 WBC (4.5-11.0) 10^3/ul RBC (3.5-6.1) 10^6/uL Hgb (14.0-18.0) g/dL Hct (42.0-52.0) % MCV (80.0-105.0) fl MCH (25.0-35.0) pg MCHC (31.0-37.0) g/dl RDW (11.5-14.5) % Plt Count (120.0-450.0) 10^3/uL MPV (7.0-11.0) fl pCO2 (35-45) mm/Hg pO2 (80-100) mm/Hg HCO3 (21-28) mmol/L ABG pH (7.35-7.45) ABG Total CO2 (22-28) mmol.L ABG O2 Saturation (95-98) % ABG O2 Content (15-23) ML/dl ABG Base Excess (-2.0-3.0) mmol/L ABG Hemoglobin (11.7-17.4) g/dL ABG Carboxyhemoglobin (0.5-1.5) % POC ABG HHb (Measured) (0-5) % ABG Methemoglobin (0.0-3.0) % ABG O2 Capacity (16-24) mL/dl Hgb O2 Saturation (95.0-98.0) % FiO2 % Sodium (132-148) mmol/L Potassium (3.6-5.0) mmol/L Chloride (98-107) mmol/L Carbon Dioxide (21-33) mmol/L Anion Gap (10-20) BUN (7-21) mg/dL Creatinine (0.8-1.5) mg/dl Est GFR ( Amer) Est GFR (Non-Af Amer) POC Glucose (mg/dL) 166 H 223 H (65-110) mg/dL Random Glucose (70-110) mg/dL Calcium (8.4-10.5) mg/dL Total Bilirubin (0.2-1.3) mg/dL AST (17-59) U/L ALT (7-56) U/L Alkaline Phosphatase (38-126) U/L Total Creatine Kinase (35-230) U/L CK-MB (CK-2) (0.0-3.6) ng/mL CK-MB (CK-2) % Total Protein (5.8-8.3) g/dL Albumin (3.0-4.8) g/dL Globulin gm/dL Albumin/Globulin Ratio (1.1-1.8) Laboratory Results - last 24 hr 12/11/17 12/11/17 12/11/17 11:38 16:14 21:42 WBC RBC Hgb Hct MCV MCH MCHC RDW Plt Count MPV pCO2 pO2 HCO3 ABG pH ABG Total CO2 ABG O2 Saturation ABG O2 Content ABG Base Excess ABG Hemoglobin ABG Carboxyhemoglobin POC ABG HHb (Measured) ABG Methemoglobin ABG O2 Capacity Hgb O2 Saturation FiO2 Sodium Potassium Chloride Carbon Dioxide Anion Gap BUN Creatinine Est GFR ( Amer) Est GFR (Non-Af Amer) POC Glucose (mg/dL) 223 H 166 H 208 H Random Glucose Calcium Total Bilirubin AST ALT Alkaline Phosphatase Total Creatine Kinase CK-MB (CK-2) CK-MB (CK-2) % Total Protein Albumin Globulin Albumin/Globulin Ratio 12/12/17 12/12/17 12/12/17 00:04 05:20 05:30 WBC 7.7 RBC 3.28 L Hgb 9.2 L Hct 28.5 L MCV 86.9 MCH 28.0 MCHC 32.3 RDW 14.2 Plt Count 241 MPV 9.8 pCO2 33 L pO2 81.0 HCO3 23.5 ABG pH 7.46 H ABG Total CO2 24.5 ABG O2 Saturation 98.1 H ABG O2 Content 12.6 L ABG Base Excess 0.0 ABG Hemoglobin 9.3 L ABG Carboxyhemoglobin 1.5 POC ABG HHb (Measured) 1.9 ABG Methemoglobin 0.9 ABG O2 Capacity 12.8 L Hgb O2 Saturation 95.7 FiO2 60.0 Sodium Potassium Chloride Carbon Dioxide Anion Gap BUN Creatinine Est GFR ( Amer) Est GFR (Non-Af Amer) POC Glucose (mg/dL) 236 H Random Glucose Calcium Total Bilirubin AST ALT Alkaline Phosphatase Total Creatine Kinase CK-MB (CK-2) CK-MB (CK-2) % Total Protein Albumin Globulin Albumin/Globulin Ratio 12/12/17 12/12/17 05:30 05:37 WBC RBC Hgb Hct MCV MCH MCHC RDW Plt Count MPV pCO2 pO2 HCO3 ABG pH ABG Total CO2 ABG O2 Saturation ABG O2 Content ABG Base Excess ABG Hemoglobin ABG Carboxyhemoglobin POC ABG HHb (Measured) ABG Methemoglobin ABG O2 Capacity Hgb O2 Saturation FiO2 Sodium 140 Potassium 4.0 Chloride 103 Carbon Dioxide 25 Anion Gap 17 BUN 112 H Creatinine 6.7 H Est GFR ( Amer) 10 Est GFR (Non-Af Amer) 8 POC Glucose (mg/dL) 170 H Random Glucose 175 H Calcium 8.4 Total Bilirubin 0.4 AST 57 ALT 45 Alkaline Phosphatase 162 H Total Creatine Kinase 293 H CK-MB (CK-2) 1.9 CK-MB (CK-2) % Cancelled Total Protein 6.2 Albumin 2.5 L Globulin 3.7 Albumin/Globulin Ratio 0.7 L Critical Care Progress Note - Nutrition Nutrition: Nutrition Category Date Time Status Consistent Carbohydrate [DIET] Diets 12/12/17 Lunch Ordered Assessment/Plan - Assessment and Plan (Free Text) Plan: Patient seen and examined, on rounds with resident, agree with note with following additions/exceptions: Patient is 72yo male with PMHx DM, HTN, Mitral valve IE, Obesity, Osteo, ROHINI, presented with multi orgran failure, in setting of ARF, ARDS. On VM 50%, with adequate oxygenation, awake, alert, following commands. Pt pulled out his femoral shiley catheter. ARDS Hypoxic resp failure UTI ESRD on HD Osteomyelitis DM Recommend: - cont with supp O2, keep sat>90% - BIPAP at night - broad spectrum antibiotics, as per ID - BP control - HD as per renal - Permacath placement by IR - monitor HH - FS control - speech and swallow eval - follow up renal - follow up ID - GI ppx - DVT ppx, HSQ - stable, transfer to [facility]
[2017-12-12] MEDS ORDERED: Midazolam 2 MG/2 ML VIAL ONE ×2 (10:54→13:16)
[2017-12-12] MEDS ORDERED: Lidocaine 2% Inj (20ml) ONE (10:54)
--- NOTE | 2017-12-12 12:25 | CP.PCM.PN ---
Subjective - Date & Time of Evaluation Date of Evaluation: 12/12/17 Time of Evaluation: 12:23 - Subjective Subjective: Nephrology Consultation Note: Assessment: critical acute hypoxic respi failure with fluid overload/CHF pattern/pulm edema And ARDS status post right heart oligoanuric Acute Kidney Injury (N17.9) likely due to sepsis, wound infection>> leading to ATN, possible AIN due to Abx/infection But urine eos negative: DIALYSIS DEPENDENT DM, HTN (I12.0) active cigar smoker, obesity toe osteomyelitis with sepsis, Mitral valve infective endocarditis Plan will plan for HD Today as ordered. Please consult IR for dialysis catheter insertion maintain hemodynamics stable. hold ACEI/ARB due to ROHINI. hold Invokanna Monitor Input/Output, daily weights and renal function with basic metabolic panel Repeat phosphorus level tomorrow morning We will dose with Aranesp 60 g today Dose meds/antibiotics for reduced GFR/HD status. Avoid fleets enema/magnesium based laxatives. Avoid nephrotoxins/NSAIDs/ iodinated contrast (unless needed emergently) Glycemic control Further work up/management as per primary team Thanks for allowing me to participate in care of your patient. Will follow patient with you. Please call if any Qs. d/w team Dr Caden Muller Office: [phone] HPI: Pt is a 72 M with hx of diabetes Mellitus (9 years), hypertension (years) , active cigar smoker, obesity and Rt foot infection, recent ROHINI (peaked cr 2.1 ) presented with complaints of Rt foot wound infection. renal consult for ROHINI eval. his cr 1.1 in 2017 and at d/c last hospitalization Denies OTC/herbal meds or NSAIDs No recent iodinated contrast exposure. episodes of low BP noted. ROS: Patient is lethargic, extubated. Patient pulled his femoral dialysis catheter Physical Examination: General Appearance:. obese. ill appearing. Vitals reviewed and noted as below Head; Atraumatic, normocephalic ENT: extubated EYES: Pupils are equal, round and reactive to light accommodation. Sclera is anicteric. Neck; supple no lymphadenopathy, no thyromegaly or bruit Lungs: normal respiratory rate/effort. Breath sounds bilateral clear anteriorly Heart: Normal rate. s1s2 normal. No rub or gallop. Extremities: Rt pedal edema. No varicose veins. Rt foot dressed. Neurological: Patient is more awake but still confused Skin: Warm and dry. Normal turgor. chronic psoriasis rash. Palpitation: Normal elasticity for age. Abdomen: Abdomen is soft. Bowel sounds +. There is no abdominal tenderness, no guarding/rigidity no organomegaly Psych: Unable MSK: no joint tenderness or swelling. Digits and nails normal, no deformity : kidney or bladder not palpable. has aquino Labs/imaging reviewed. Past medical history, past surgical history, family history, social history, allergy reviewed and noted as below Family hx: no hx of CKD. Rest non-contributory workup: renal SONO: WNL UA large blood Objective - Vital Signs/Intake and Output Vital Signs (last 24 hours): Temp Pulse Resp BP Pulse Ox 97.4 F L 90 18 152/69 H 99 12/12/17 09:35 12/12/17 11:34 12/12/17 11:34 12/12/17 11:30 12/12/17 11:34 Intake and Output: 12/12/17 12/12/17 06:59 18:59 Intake Total 400 Output Total 450 Balance -50 - Medications Medications: Current Medications Acetaminophen (Tylenol 325mg Tab) 650 mg PO Q6H PRN PRN Reason: Fever >100.4 F Albuterol/Ipratropium (Duoneb 3 Mg/0.5 Mg (3 Ml) Ud) 3 ml IH [id number] [facility] Last Admin: 12/12/17 07:16 Dose: 3 ml Aspirin (Aspirin Chewable) 81 mg PO DAILY [facility] Last Admin: 12/12/17 10:05 Dose: Not Given Atorvastatin Calcium (Lipitor) 10 mg PO DIN [facility] Last Admin: 12/11/17 18:02 Dose: Not Given Heparin Sodium (Porcine) (Heparin) 5,000 units SC Q8 GERRY PRN Reason: Protocol Last Admin: 12/12/17 05:41 Dose: 5,000 units Hydralazine HCl (Apresoline) 25 mg PO Q4 PRN PRN Reason: Other Hydralazine HCl (Apresoline) 10 mg IVP Q6 PRN PRN Reason: SBP >150 and/or DBP >90 Last Admin: 12/04/17 21:55 Dose: 10 mg Hydrocortisone Sodium Succinate (Solu-Cortef) 50 mg IVP Q12 [facility] Last Admin: 12/12/17 09:51 Dose: 50 mg Meropenem 500 mg/ Sodium (Chloride) 50 mls @ 100 mls/hr IVPB Q12 GERRY PRN Reason: Protocol Stop: 12/13/17 18:52 Last Admin: 12/12/17 09:51 Dose: 100 mls/hr Linezolid (Zyvox 600mg/300ml D5w) 600 mg in 300 mls @ 200 mls/hr IVPB Q12 GERRY PRN Reason: Protocol Stop: 12/14/17 22:01 Last Admin: 12/12/17 09:52 Dose: 200 mls/hr Daptomycin 690 mg/ Sodium (Chloride) 100 mls @ 200 mls/hr IV QOTHERDAY [facility] Stop: 12/29/17 15:01 Last Admin: 12/12/17 09:52 Dose: 200 mls/hr Insulin Detemir (Levemir) 50 unit SC HS [facility] Last Admin: 12/11/17 21:46 Dose: 50 unit Insulin Human Regular (Humulin R High) 0 units SC Q4 GERRY PRN Reason: Protocol Last Admin: 12/12/17 11:39 Dose: Not Given Levalbuterol HCl (Xopenex) 0.63 mg IH [id number] [facility] Last Admin: 12/05/17 08:01 Dose: 0.63 mg Levalbuterol HCl (Xopenex) 1.25 mg IH [id number] PRN PRN Reason: Shortness of Breath Last Admin: 12/06/17 05:35 Dose: 1.25 mg Metoprolol Tartrate (Lopressor) 5 mg IVP Q6H [facility] Last Admin: 12/10/17 09:25 Dose: Not Given Metoprolol Tartrate (Lopressor) 25 mg PO BID [facility] Midazolam HCl (Versed Inj) 4 mg IVP Q4 PRN PRN Reason: Agitation Last Admin: 12/07/17 17:44 Dose: 4 mg Multivitamins (Thera Tab) 1 tab PO DAILY [facility] Last Admin: 12/12/17 10:05 Dose: Not Given Pantoprazole Sodium (Protonix Inj) 40 mg IVP DAILY [facility] Last Admin: 12/12/17 09:51 Dose: 40 mg Sodium Hypochlorite (Dakins Solution 0.5%) 0 ml TOP DAILY [facility] Last Admin: 12/12/17 10:05 Dose: Not Given - Labs Labs: 12/12/17 05:30 12/12/17 05:30 PT 12.7 SECONDS (9.4-12.5) H 12/08/17 08:30 INR 1.10 (0.93-1.08) H 12/08/17 08:30 APTT 30.7 Seconds (25.1-36.5) 12/08/17 08:30
--- NOTE | 2017-12-12 12:27 | PN ---
DATE: 12/12/2017 PULMONARY NOTE SUBJECTIVE: The patient appears comfortable this morning. He is not short of breath at rest. He remains on BiPAP. He is confused. PHYSICAL EXAMINATION: VITAL SIGNS: Temperature is 98.1, pulse 75, respirations 18, blood pressure 125/80. Oxygen saturation on BiPAP is 95%. HEENT: Normocephalic, atraumatic. NECK: No JVD. CARDIOVASCULAR: Systolic ejection murmur at the lower left sternal border. Questionable S3 gallop. LUNGS: Decreased breath sounds at the bases with less crackles. Less rhonchi. No wheezing. EXTREMITIES: The right foot remains wrapped. There is mild edema in both lower extremities. There is no cyanosis or clubbing. The calves are nontender to palpation. GI: Abdomen is soft, nontender, nondistended. Bowel sounds are positive. SKIN: No acute rash. NEUROLOGIC: Exam limited at the present time. PERTINENT LABORATORY DATA: Chest x-ray was done this morning and reviewed. There is continued decrease in the bilateral pulmonary infiltrates. Arterial blood gas was done on BiPAP. Results are: pH 7.46, pCO2 of 33, pO2 of 81. IMPRESSION: 1. Respiratory failure. 2. Acute respiratory distress syndrome. 3. Mild bronchospasm. 4. Sepsis syndrome. 5. Renal insufficiency. 6. Mild anemia. 7. Right foot infection. 8. Mitral valve endocarditis. PLAN: The patient is currently extubated. He is currently on BiPAP. He is not short of breath. He is confused. I discussed the case with the night nurse at length. The night nurse stated that the patient had a good night overall. I did review the chest x-ray as above. The chest x-ray shows continued improvement-with decreased bilateral pulmonary infiltrates. I have also reviewed the arterial blood gas. The arterial blood gas is also improved, with a decrease in the alveolar-arterial gradient. I would continue with the antibiotic coverage as per Infectious Disease. Input by Dr. Hernández is noted. The temperatures have now resolved. The leukocytosis has also resolved. I would continue with the Cardiology and Renal evaluations. Inputs are noted. Clinical status of the patient is significantly improved-compared to last week. However, again, his overall status/prognosis does remain very guarded. I will discuss the above with the entire ICU team in the next few moments. I will also discuss the above with Dr. Mendez later this morning. Baljinder Dejesus MD MTDMarisela
--- NOTE | 2017-12-12 13:26 | PN ---
DATE: SUBJECTIVE: I saw Toya this morning, resting in bed in the Intensive Care Unit. He is now off the ventilator. He is looking at me and is talking with me. He is comfortable. No acute pain. He is short of breath on the BiPAP. He is on Apresoline, aspirin, Dakin solution, daptomycin IV, DuoNeb, heparin, Levemir, Lipitor, Lopressor, Merrem IV, Protonix, Solu-Cortef at a high dose, Thera-Tabs, Tylenol, Versed, Xopenex and Zyvox IV. OBJECTIVE: VITAL SIGNS: He has a 78 pulse. He has a 95 oxygen saturation, 155/80 blood pressure. HEENT: Head is atraumatic, normocephalic. HEART: Regular rate with decreased breath sounds, but clear. ABDOMEN: Soft, obese. EXTREMITIES: The right foot is bandaged. He has mitral valve endocarditis. He has got a bad right foot cellulitis, bad infection into the bone. He will need IV antibiotics for that. He also ARDS. He has on and off respiratory distress and failure and we will continue aggressive treatment and care. Now he is on dialysis. Thank you very much on Mr. Toya Puckett. Continue aggressive treatment and care. Reagan Mendez DO MTDD
--- NOTE | 2017-12-12 13:58 | CP.PCM.PN ---
Subjective - Date & Time of Evaluation Date of Evaluation: 12/12/17 Time of Evaluation: 09:00 - Subjective Subjective: Pulled out his right groin dialysis catheter, no fevers, still with some lethargy but answers simple questions, no diarrhea. Objective - Vital Signs/Intake and Output Vital Signs (last 24 hours): Temp Pulse Resp BP Pulse Ox 98.1 F 76 18 132/69 96 12/12/17 04:00 12/12/17 05:23 12/12/17 04:00 12/12/17 05:00 12/12/17 05:23 Intake and Output: 12/11/17 12/12/17 18:59 06:59 Intake Total 350 Output Total 150 Balance 200 - Medications Medications: Current Medications Acetaminophen (Tylenol 325mg Tab) 650 mg PO Q6H PRN PRN Reason: Fever >100.4 F Albuterol/Ipratropium (Duoneb 3 Mg/0.5 Mg (3 Ml) Ud) 3 ml IH [id number] [facility] Last Admin: 12/12/17 02:52 Dose: 3 ml Aspirin (Aspirin Chewable) 81 mg PO DAILY [facility] Last Admin: 12/11/17 10:47 Dose: 81 mg Atorvastatin Calcium (Lipitor) 10 mg PO DIN [facility] Last Admin: 12/11/17 18:02 Dose: Not Given Heparin Sodium (Porcine) (Heparin) 5,000 units SC Q8 GERRY PRN Reason: Protocol Last Admin: 12/12/17 05:41 Dose: 5,000 units Hydralazine HCl (Apresoline) 25 mg PO Q4 PRN PRN Reason: Other Hydralazine HCl (Apresoline) 10 mg IVP Q6 PRN PRN Reason: SBP >150 and/or DBP >90 Last Admin: 12/04/17 21:55 Dose: 10 mg Hydrocortisone Sodium Succinate (Solu-Cortef) 50 mg IVP Q12 [facility] Last Admin: 12/11/17 21:47 Dose: 50 mg Meropenem 500 mg/ Sodium (Chloride) 50 mls @ 100 mls/hr IVPB Q12 GERRY PRN Reason: Protocol Stop: 12/13/17 18:52 Last Admin: 12/11/17 22:20 Dose: 100 mls/hr Linezolid (Zyvox 600mg/300ml D5w) 600 mg in 300 mls @ 200 mls/hr IVPB Q12 GERRY PRN Reason: Protocol Stop: 12/14/17 22:01 Last Admin: 12/11/17 21:47 Dose: 200 mls/hr Daptomycin 690 mg/ Sodium (Chloride) 100 mls @ 200 mls/hr IV QOTHERDAY [facility] Stop: 12/29/17 15:01 Insulin Detemir (Levemir) 50 unit SC HS [facility] Last Admin: 12/11/17 21:46 Dose: 50 unit Insulin Human Regular (Humulin R High) 0 units SC Q4 GERRY PRN Reason: Protocol Last Admin: 12/12/17 05:40 Dose: Not Given Levalbuterol HCl (Xopenex) 0.63 mg IH [id number] [facility] Last Admin: 12/05/17 08:01 Dose: 0.63 mg Levalbuterol HCl (Xopenex) 1.25 mg IH [id number] PRN PRN Reason: Shortness of Breath Last Admin: 12/06/17 05:35 Dose: 1.25 mg Metoprolol Tartrate (Lopressor) 5 mg IVP Q6H [facility] Last Admin: 12/10/17 09:25 Dose: Not Given Metoprolol Tartrate (Lopressor) 25 mg PO BID [facility] Midazolam HCl (Versed Inj) 4 mg IVP Q4 PRN PRN Reason: Agitation Last Admin: 12/07/17 17:44 Dose: 4 mg Multivitamins (Thera Tab) 1 tab PO DAILY [facility] Last Admin: 12/11/17 11:04 Dose: 1 tab Pantoprazole Sodium (Protonix Inj) 40 mg IVP DAILY [facility] Last Admin: 12/11/17 11:01 Dose: 40 mg Sodium Hypochlorite (Dakins Solution 0.5%) 0 ml TOP DAILY [facility] Last Admin: 12/11/17 16:06 Dose: Not Given - Labs Labs: 12/11/17 06:05 12/11/17 06:05 PT 12.7 SECONDS (9.4-12.5) H 12/08/17 08:30 INR 1.10 (0.93-1.08) H 12/08/17 08:30 APTT 30.7 Seconds (25.1-36.5) 12/08/17 08:30 - Constitutional Appears: Chronically Ill - Head Exam Head Exam: NORMAL INSPECTION - ENT Exam ENT Exam: Mucous Membranes Moist - Neck Exam Neck Exam: absent: Meningismus - Respiratory Exam Respiratory Exam: Decreased Breath Sounds - Cardiovascular Exam Cardiovascular Exam: +S1, +S2 - GI/Abdominal Exam GI & Abdominal Exam: Soft. 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 Whitehead previously - Mccarley Charles procedure revealed only mild pulmonary HTN and patient is not in florid CHF but in ARDS will continue to monitor clinically overall prognosis is poor
--- NOTE | 2017-12-12 16:21 | VASCULAR ---
PROCEDURE: Ultrasound and fluoroscopic tunneled right IJ dialysis catheter. CLINICAL HISTORY: ESRD PHYSICIAN(S): Riccardo Rodrigez M.D. TECHNIQUE: The relative risks and indications for the procedure were explained to the patient and informed written consent obtained. The patient was placed supine on the arteriography table and the right neck/chest was prepped and draped in the usual sterile fashion. 1% Xylocaine was used to anesthetize the skin and soft tissues at the puncture site. Conscious sedation and monitoring were provided throughout the procedure by a nurse. Under direct ultrasound guidance, the rightinternal jugular vein was punctured with a micropuncture set. A 0.035 Glidewire was advanced into the IVC. Sequential dilatation was performed with subsequent placement of a 28cmNext step dialysis catheter with its tip in the right atrium. A retrograde tunnel below the right clavicle was performed. The catheter was trimmed and the hub attached. Both ports aspirate and inject easily. The catheter was secured and a dressing applied. The patient tolerated the procedure well. IMPRESSION: 1. Ultrasound and fluoroscopically placed right IJ tunneled dialysis catheter.
--- NOTE | 2017-12-12 20:14 | PN ---
DATE: 12/12/2017 CARDIOLOGY FOLLOWUP SUBJECTIVE: The patient is without dyspnea. PHYSICAL EXAMINATION: VITAL SIGNS: Blood pressure is 161/93, the heart rate is in the 90s. NECK: Negative JVD. LUNGS: Without rales. HEART: Reveals S1, S2. EXTREMITIES: Without edema. LABORATORY DATA: Hemoglobin is 9.2. Chemistries, BUN and creatinine . IMPRESSION: 1. End-stage renal disease. The patient is now on permanent dialysis. 2. Diabetes mellitus. 3. Severe peripheral vascular disease. 4. Recent [id number] myocardial infarction. 5. High probability for coronary artery disease. PLAN: Given these findings, once the patient settle on dialysis, we will consider discussing with the patient about possible cardiac catheterization for his coronary artery disease. Riccardo Whitehead MD
[2017-12-12] MEDS: Insulin Detemir 100 units/ml Vial (Levemir) SC SCH (22:44)
[2017-12-13] MEDS: Levalbuterol 0.63 MG/3 ML Inhal Soln UD IH SCH (01:17)
[2017-12-13] MEDS: Albuterol-Ipratrop 3 mg / 0.5 (3 ml) UD IH SCH ×4 (01:18→20:10)
[2017-12-13] MEDS: Insulin Reg-HIGH-Coverage SC SCH ×6 (04:09→20:33)
[2017-12-13 05:16] LABS: ARTERIAL BLOOD GAS HCO3 24.2 mmol/L (21-28); ARTERIAL BLOOD GAS HEMOGLOBIN 18.4 g/dL (11.7-17.4); ARTERIAL BLOOD GAS O2 CAPACITY 25.3 mL/dl (16-24); ARTERIAL BLOOD GAS O2 CONTENT 24.7 ML/dl (15-23); ARTERIAL BLOOD GAS O2 SAT 97.8 % (95-98); ARTERIAL BLOOD GAS PCO2 39 mm/Hg (35-45); ARTERIAL BLOOD GAS TCO2 25.4 mmol.L (22-28)
[2017-12-13 06:28] LABS: HEMOGLOBIN 10.1 g/dL (14.0-18.0); MEAN CORPUSCULAR HEMOGLOBIN 28.6 pg (25.0-35.0); MEAN CORPUSCULAR HGB CONC 33.7 g/dl (31.0-37.0); MEAN PLATELET VOLUME 8.9 fl (7.0-11.0); RBC 3.53 10^6/uL (3.5-6.1); RED CELL DISTRIBUTION WIDTH 14.4 % (11.5-14.5); WHITE BLOOD COUNT 8.9 10^3/ul (4.5-11.0)
[2017-12-13 07:07] LABS: ALB/GLOB RATIO 0.7 (1.1-1.8); ALBUMIN 2.8 g/dL (3.0-4.8); CALCIUM 8.8 mg/dL (8.4-10.5)
--- NOTE | 2017-12-13 08:28 | RAD ---
HISTORY: f/u COMPARISON: 12/12/2017 FINDINGS: LUNGS: No active pulmonary disease. PLEURA: No significant pleural effusion identified, no pneumothorax apparent. CARDIOVASCULAR: Normal. OSSEOUS STRUCTURES: No significant abnormalities. VISUALIZED UPPER ABDOMEN: Normal. OTHER FINDINGS: Right internal jugular dialysis catheter terminates in the right atrium. No pneumothorax IMPRESSION: No active disease.
--- NOTE | 2017-12-13 08:38 | PN ---
DATE: 12/13/2017 PULMONARY NOTE SUBJECTIVE: The patient appears comfortable this morning. He is not short of breath at rest. PHYSICAL EXAMINATION: VITAL SIGNS: Last temperature recorded is 96.7, pulse is 84, respiratory rate 18, blood pressure 153/81. Oxygen saturation on Ventimask is 95%. HEENT: Normocephalic, atraumatic. No JVD. CARDIOVASCULAR: Systolic ejection murmur at the lower left sternal border. Questionable S3 gallop. LUNGS: Decreased breath sounds at the bases with minimal crackles. Very minimal/less rhonchi. No wheezing. EXTREMITIES: The right foot remains wrapped. There is less edema in both lower extremities. There is no cyanosis or clubbing. The calves are nontender to palpation. GI: Abdomen is soft, nontender and nondistended. Bowel sounds are positive. SKIN: No acute rash. NEUROLOGIC: Limited at the present time. PERTINENT LABORATORY DATA: Chest x-ray was done this morning and reviewed. It continues to improve-- with a significant decrease in the pulmonary infiltrates. Arterial blood gas was also done on Ventimask. Results are: PH 7.40, pCO2 of 39, pO2 of 89. IMPRESSION: 1. Status post respiratory failure. 2. Acute respiratory distress syndrome - resolving. 3. Mild bronchospasm. 4. Sepsis syndrome. 5. Renal insufficiency. 6. Mild anemia. 7. Right foot infection. 8. Mitral valve endocarditis. PLAN: The patient remains extubated. He is awake and alert. He is not short of breath. I did discuss the case with the night nurse at length. The night nurse stated that the patient had a very good night. I did review the chest x-ray as above. The chest x-ray continues to improve with a significant decrease in the bilateral pulmonary infiltrates. I have also reviewed the arterial blood gas. The arterial blood gas also continues to improve - with normalization of the pH, and a decrease in the alveolar-arterial gradient. I would continue with the antibiotic coverage as per Infectious Disease. Temperatures have fully resolved. The leukocytosis has also fully resolved. On physical exam, there is much less bronchospasm noted. I will continue with the current nebulizer treatments and aspiration precautions. The hydrocortisone has also been decreased. Inputs by Renal and Cardiology are also noted. Clinical status of the patient is significantly improved overall. I will discuss the above with the entire ICU team in the next few moments. I will also discuss the above with Dr. Mendez. Baljinder Dejesus MD ODILON
--- NOTE | 2017-12-13 09:45 | CP.PCM.PN ---
Subjective - Date & Time of Evaluation Date of Evaluation: 12/13/17 Time of Evaluation: 09:10 - Subjective Subjective: Breathing better, not on BiPAP currently, no fevers, not in distress, no diarrhea, more awake compared to previous days. Objective - Vital Signs/Intake and Output Vital Signs (last 24 hours): Temp Pulse Resp BP Pulse Ox 96.7 F L 90 18 153/81 H 95 12/12/17 15:15 12/13/17 04:00 12/13/17 00:00 12/13/17 00:00 12/13/17 00:00 - Medications Medications: Current Medications Acetaminophen (Tylenol 325mg Tab) 650 mg PO Q6H PRN PRN Reason: Fever >100.4 F Albuterol/Ipratropium (Duoneb 3 Mg/0.5 Mg (3 Ml) Ud) 3 ml IH [id number] [facility] Last Admin: 12/13/17 07:27 Dose: 3 ml Aspirin (Aspirin Chewable) 81 mg PO DAILY [facility] Last Admin: 12/12/17 10:05 Dose: Not Given Atorvastatin Calcium (Lipitor) 10 mg PO DIN [facility] Last Admin: 12/12/17 18:01 Dose: 10 mg Hydralazine HCl (Apresoline) 25 mg PO Q4 PRN PRN Reason: Other Hydralazine HCl (Apresoline) 10 mg IVP Q6 PRN PRN Reason: SBP >150 and/or DBP >90 Last Admin: 12/04/17 21:55 Dose: 10 mg Hydrocortisone Sodium Succinate (Solu-Cortef) 50 mg IVP Q12 [facility] Last Admin: 12/12/17 22:56 Dose: 50 mg Meropenem 500 mg/ Sodium (Chloride) 50 mls @ 100 mls/hr IVPB Q12 [facility] PRN Reason: Protocol Stop: 12/13/17 18:52 Last Admin: 12/12/17 22:55 Dose: 100 mls/hr Daptomycin 690 mg/ Sodium (Chloride) 100 mls @ 200 mls/hr IV QOTHERDAY [facility] Stop: 12/29/17 15:01 Last Admin: 12/12/17 09:52 Dose: 200 mls/hr Insulin Detemir (Levemir) 50 unit SC [facility] Last Admin: 12/12/17 22:44 Dose: 50 unit Insulin Human Regular (Humulin R High) 0 units SC Q4 [facility] PRN Reason: Protocol Last Admin: 12/13/17 04:09 Dose: Not Given Levalbuterol HCl (Xopenex) 0.63 mg IH [id number] [facility] Last Admin: 12/05/17 08:01 Dose: 0.63 mg Levalbuterol HCl (Xopenex) 1.25 mg IH [id number] PRN PRN Reason: Shortness of Breath Last Admin: 12/06/17 05:35 Dose: 1.25 mg Metoprolol Tartrate (Lopressor) 5 mg IVP Q6H [facility] Last Admin: 12/10/17 09:25 Dose: Not Given Metoprolol Tartrate (Lopressor) 25 mg PO BID [facility] Midazolam HCl (Versed Inj) 4 mg IVP Q4 PRN PRN Reason: Agitation Last Admin: 12/07/17 17:44 Dose: 4 mg Multivitamins (Thera Tab) 1 tab PO DAILY [facility] Last Admin: 12/12/17 10:05 Dose: Not Given Pantoprazole Sodium (Protonix Inj) 40 mg IVP DAILY [facility] Last Admin: 12/12/17 09:51 Dose: 40 mg Sodium Hypochlorite (Dakins Solution 0.5%) 0 ml TOP DAILY [facility] Last Admin: 12/12/17 10:05 Dose: Not Given - Labs Labs: 12/13/17 06:00 12/13/17 06:00 PT 12.7 SECONDS (9.4-12.5) H 12/08/17 08:30 INR 1.10 (0.93-1.08) H 12/08/17 08:30 APTT 30.7 Seconds (25.1-36.5) 12/08/17 08:30 - Constitutional Appears: Chronically Ill - Head Exam Head Exam: NORMAL INSPECTION - ENT Exam ENT Exam: Mucous Membranes Moist - Neck Exam Neck Exam: absent: Meningismus - Respiratory Exam Respiratory Exam: Decreased Breath Sounds - Cardiovascular Exam Cardiovascular Exam: +S1, +S2 - GI/Abdominal Exam GI & Abdominal Exam: Soft. 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 Whitehead previously - [facility] [place] procedure revealed only mild pulmonary HTN and patient is not in florid CHF but in ARDS will continue to monitor clinically overall prognosis is guarded at best
[2017-12-13] MEDS: Multivitamin Therapeutic Tab PO SCH (09:55)
[2017-12-13] MEDS: Meropenem 500 MG in Sodium Chloride 0.9% 50 ML IVPB SCH (09:55)
--- NOTE | 2017-12-13 14:40 | PN ---
DATE: 12/13/2017 CARDIOLOGY FOLLOWUP SUBJECTIVE: The patient is in no respiratory distress. PHYSICAL EXAMINATION: VITAL SIGNS: Blood pressure is 145/73, heart rates in the 80s. NECK: Negative JVD. LUNGS: Without rales. HEART: Reveals S1, S2 with a short systolic ejection murmur. EXTREMITIES: Bandage in the right lower extremity. LABORATORY DATA: White count is normal at 8.9, hemoglobin is 10.1. Chemistries: BUN and creatinine are 84 and 4.5 with a glucose of 251. IMPRESSION: 1. Endocarditis. 2. Status post respiratory failure. 3. Mild mitral regurgitation. 4. Recent ani-[id number] myocardial infarction. 5. High probability for coronary artery disease. PLAN: Given these findings, I will discuss with the patient and family about a possible catheterization. Riccardo Whitehead MD
--- NOTE | 2017-12-13 14:59 | CP.PCM.PN ---
Subjective - Date & Time of Evaluation Date of Evaluation: 12/13/17 Time of Evaluation: 14:54 - Subjective Subjective: Nephrology Consultation Note: Assessment: critical acute hypoxic respi failure with fluid overload/CHF pattern/pulm edema And ARDS status post right heart: IMPROVED oligoanuric Acute Kidney Injury (N17.9) likely due to sepsis, wound infection>> leading to ATN, possible AIN due to Abx/infection But urine eos negative: DIALYSIS DEPENDENT DM, HTN (I12.0) active cigar smoker, obesity toe osteomyelitis with sepsis, Mitral valve infective endocarditis Plan will plan for HD Tomorrow as ordered. plan to continue with renal replacement therapy until his [place] kidney function improves. maintain hemodynamics stable. hold ACEI/ARB due to ROHINI. hold [employer] Monitor Input/Output, daily weights and renal function with basic metabolic panel will add phos binders s/p Aranesp 60 g 12/12/17, last Hb 10.1 planned for coronary angiogram tomorrow Dose meds/antibiotics for reduced GFR/HD status. Avoid fleets enema/magnesium based laxatives. Avoid nephrotoxins/NSAIDs/ iodinated contrast (unless needed emergently) Glycemic control Further work up/management as per primary team Thanks for allowing me to participate in care of your patient. Will follow patient with you. Please call if any Qs. d/w team Dr Caden Muller Office: [phone] HPI: Pt is a 72 M with hx of diabetes Mellitus (9 years), hypertension (years) , active cigar smoker, obesity and Rt foot infection, recent ROHINI (peaked cr 2.1 ) presented with complaints of Rt foot wound infection. renal consult for ROHINI eval. his cr 1.1 in 2017 and at d/c last hospitalization Denies OTC/herbal meds or NSAIDs No recent iodinated contrast exposure. episodes of low BP noted. ROS: Patient is more awake and communicative, extubated. Physical Examination: General Appearance:. obese. better appearing. comfortable Vitals reviewed and noted as below Head; Atraumatic, normocephalic ENT: extubated EYES: Pupils are equal, round and reactive to light accommodation. Sclera is anicteric. Neck; supple no lymphadenopathy, no thyromegaly or bruit Lungs: normal respiratory rate/effort. Breath sounds bilateral clear anteriorly Heart: Normal rate. s1s2 normal. No rub or gallop. Extremities: no edema. No varicose veins. Rt foot dressed. Neurological: Patient is more awake alert and oriented but still bit confused Skin: Warm and dry. Normal turgor. chronic psoriasis rash. Palpitation: Normal elasticity for age. Abdomen: Abdomen is soft. Bowel sounds +. There is no abdominal tenderness, no guarding/rigidity no organomegaly Psych: Unable MSK: no joint tenderness or swelling. Digits and nails normal, no deformity : kidney or bladder not palpable. access: Rt IJ permacath Labs/imaging reviewed. Past medical history, past surgical history, family history, social history, allergy reviewed and noted as below Family hx: no hx of CKD. Rest non-contributory workup: renal SONO: WNL UA large blood Objective - Vital Signs/Intake and Output Vital Signs (last 24 hours): Temp Pulse Resp BP Pulse Ox 97 F L 84 15 145/73 98 12/13/17 10:37 12/13/17 12:09 12/13/17 12:01 12/13/17 12:01 12/13/17 12:01 - Medications Medications: Current Medications Acetaminophen (Tylenol 325mg Tab) 650 mg PO Q6H PRN PRN Reason: Fever >100.4 F Albuterol/Ipratropium (Duoneb 3 Mg/0.5 Mg (3 Ml) Ud) 3 ml IH [id number] [facility] Last Admin: 12/13/17 13:17 Dose: 3 ml Aspirin (Aspirin Chewable) 81 mg PO DAILY [facility] Last Admin: 12/13/17 09:55 Dose: 81 mg Atorvastatin Calcium (Lipitor) 10 mg PO DIN [facility] Last Admin: 12/12/17 18:01 Dose: 10 mg Clopidogrel Bisulfate (Plavix) 75 mg PO DAILY [facility] Hydralazine HCl (Apresoline) 25 mg PO Q4 PRN PRN Reason: Other Hydralazine HCl (Apresoline) 10 mg IVP Q6 PRN PRN Reason: SBP >150 and/or DBP >90 Last Admin: 12/04/17 21:55 Dose: 10 mg Hydrocortisone Sodium Succinate (Solu-Cortef) 50 mg IVP Q12 [facility] Last Admin: 12/13/17 09:54 Dose: 50 mg Meropenem 500 mg/ Sodium (Chloride) 50 mls @ 100 mls/hr IVPB Q12 [facility] PRN Reason: Protocol Stop: 12/13/17 18:52 Last Admin: 12/13/17 09:55 Dose: 100 mls/hr Daptomycin 690 mg/ Sodium (Chloride) 100 mls @ 200 mls/hr IV QOTHERDAY [facility] Stop: 12/29/17 15:01 Last Admin: 12/12/17 09:52 Dose: 200 mls/hr Insulin Detemir (Levemir) 50 unit SC HS [facility] Last Admin: 12/12/17 22:44 Dose: 50 unit Insulin Human Regular (Humulin R High) 0 units SC Q4 [facility] PRN Reason: Protocol Last Admin: 12/13/17 13:53 Dose: 7 units Levalbuterol HCl (Xopenex) 0.63 mg IH [id number] [facility] Last Admin: 12/05/17 08:01 Dose: 0.63 mg Levalbuterol HCl (Xopenex) 1.25 mg IH [id number] PRN PRN Reason: Shortness of Breath Last Admin: 12/06/17 05:35 Dose: 1.25 mg Metoprolol Tartrate (Lopressor) 5 mg IVP Q6H [facility] Last Admin: 12/10/17 09:25 Dose: Not Given Metoprolol Tartrate (Lopressor) 25 mg PO BID [facility] Midazolam HCl (Versed Inj) 4 mg IVP Q4 PRN PRN Reason: Agitation Last Admin: 12/07/17 17:44 Dose: 4 mg Multivitamins (Thera Tab) 1 tab PO DAILY [facility] Last Admin: 12/13/17 09:55 Dose: 1 tab Pantoprazole Sodium (Protonix Ec Tab) 40 mg PO ACB [facility] Sodium Hypochlorite (Dakins Solution 0.5%) 0 ml TOP DAILY [facility] Last Admin: 12/12/17 10:05 Dose: Not Given - Labs Labs: 12/13/17 06:00 12/13/17 06:00 PT 12.7 SECONDS (9.4-12.5) H 12/08/17 08:30 INR 1.10 (0.93-1.08) H 12/08/17 08:30 APTT 30.7 Seconds (25.1-36.5) 12/08/17 08:30
--- NOTE | 2017-12-13 17:35 | PN ---
DATE: SUBJECTIVE: I saw him in intensive care unit. He knew where he was immediately when he saw me. He is off the ventilator. He is on the oxygen mask. He is still on risk restraints. We are trying to get him to a facility for further care at least 24 hours. He is definitely better lung hutchins. MEDICATIONS: He is on Apresoline, aspirin, Dakin solution, daptomycin, DuoNeb, insulin, Levemir, Lipitor, Lopressor, Merrem IV, Protonix, Solu-Cortef 50 mg IV every 12 hours, Thera-Tabs, Tylenol, Versed, Xopenex. PHYSICAL EXAMINATION: VITAL SIGNS: He has 97 temperature, 81 pulse, 138/61 blood pressure, 18 respiratory rate, 90% O2 sat on VentiMask 15%. HEENT: His head is atraumatic, normocephalic. HEART: Regular rate. He does have mitral valve endocarditis. LUNGS: Decreased breath sounds, but they are fairly clear. He is having adult respiratory distress syndrome. He is now off the ventilator. ABDOMEN: Soft, nontender, positive bowel sounds. No guarding or rebound. EXTREMITIES: The right foot is bandaged. Right foot severe infection. LABORATORY DATA: He has an 8.9 white count, 10.1 hemoglobin, 30 hematocrit with 218 platelets. He has 136 sodium, potassium is 3.9. BUN 84, creatinine 4.5. He was getting dialysis. I am going to put a shunt in him, but his BUN and creatinine have improved some. Blood sugar was 229. Calcium is 8.8, phosphorous 6.1. Total bilirubin is 0.9, AST is 44, ALT is 42, alkaline phosphatase 170, total protein is 6.7. We will continue aggressive ICU treatment, hopefully get him off the risk restraints soon. He is improving. We are trying to get him to a facility that can handle him and also get him physical therapy, finish the antibiotics and get him better. His chest x-ray shows no active disease Continue aggressive treatment and care. Reagan Mendez DO MTDMarisela
--- NOTE | 2017-12-13 19:53 | CP.PCM.PN ---
<Andrea Khan - Last Filed: 12/14/17 07:11> Subjective - Date & Time of Evaluation Date of Evaluation: 12/13/17 Time of Evaluation: 17:51 - Subjective Subjective: Podiatry Progress Note - Dr. Baron/Luciana 72 y/o male seen and examined at bedside this morning in ICU s/p debridement of right foot diabetic ulceration with sinus tract and underlying OM. Patient more awake and alert today. Dressing clean/dry/intact to RLE with multipodus boots present bilaterally. No complaints to right foot. Denies N/V/F/D/C/SOB. Objective - Vital Signs/Intake and Output Vital Signs (last 24 hours): Temp Pulse Resp BP Pulse Ox 97.4 F L 88 15 148/74 97 12/13/17 16:30 12/13/17 18:00 12/13/17 18:00 12/13/17 18:00 12/13/17 18:00 Intake and Output: 12/13/17 12/14/17 18:59 06:59 Intake Total 650 Output Total 300 Balance 350 - Medications Medications: Current Medications Acetaminophen (Tylenol 325mg Tab) 650 mg PO Q6H PRN PRN Reason: Fever >100.4 F Albuterol/Ipratropium (Duoneb 3 Mg/0.5 Mg (3 Ml) Ud) 3 ml IH [id number] [facility] Last Admin: 12/13/17 13:17 Dose: 3 ml Aspirin (Aspirin Chewable) 81 mg PO DAILY [facility] Last Admin: 12/13/17 09:55 Dose: 81 mg Atorvastatin Calcium (Lipitor) 10 mg PO DIN [facility] Last Admin: 12/13/17 17:43 Dose: 10 mg Calcium Acetate (Phoslo) 667 mg PO WM [facility] Last Admin: 12/13/17 17:43 Dose: 667 mg Clopidogrel Bisulfate (Plavix) 75 mg PO DAILY [facility] Hydralazine HCl (Apresoline) 25 mg PO Q4 PRN PRN Reason: Other Hydralazine HCl (Apresoline) 10 mg IVP Q6 PRN PRN Reason: SBP >150 and/or DBP >90 Last Admin: 12/04/17 21:55 Dose: 10 mg Hydrocortisone Sodium Succinate (Solu-Cortef) 50 mg IVP Q12 [facility] Last Admin: 12/13/17 09:54 Dose: 50 mg Daptomycin 690 mg/ Sodium (Chloride) 100 mls @ 200 mls/hr IV QOTHERDAY [facility] Stop: 12/29/17 15:01 Last Admin: 12/12/17 09:52 Dose: 200 mls/hr Insulin Detemir (Levemir) 50 unit SC HS [facility] Last Admin: 12/12/17 22:44 Dose: 50 unit Insulin Human Regular (Humulin R High) 0 units SC Q4 [facility] PRN Reason: Protocol Last Admin: 12/13/17 15:57 Dose: 7 units Levalbuterol HCl (Xopenex) 0.63 mg IH [id number] [facility] Last Admin: 12/05/17 08:01 Dose: 0.63 mg Levalbuterol HCl (Xopenex) 1.25 mg IH [id number] PRN PRN Reason: Shortness of Breath Last Admin: 12/06/17 05:35 Dose: 1.25 mg Metoprolol Tartrate (Lopressor) 5 mg IVP Q6H [facility] Last Admin: 12/10/17 09:25 Dose: Not Given Metoprolol Tartrate (Lopressor) 25 mg PO BID [facility] Midazolam HCl (Versed Inj) 4 mg IVP Q4 PRN PRN Reason: Agitation Last Admin: 12/07/17 17:44 Dose: 4 mg Multivitamins (Thera Tab) 1 tab PO DAILY [facility] Last Admin: 12/13/17 09:55 Dose: 1 tab Pantoprazole Sodium (Protonix Ec Tab) 40 mg PO ACB [facility] Sodium Hypochlorite (Dakins Solution 0.5%) 0 ml TOP DAILY [facility] Last Admin: 12/12/17 10:05 Dose: Not Given - Labs Labs: 12/13/17 06:00 12/13/17 06:00 PT 12.7 SECONDS (9.4-12.5) H 12/08/17 08:30 INR 1.10 (0.93-1.08) H 12/08/17 08:30 APTT 30.7 Seconds (25.1-36.5) 12/08/17 08:30 - Constitutional Appears: Well, Non-toxic, No Acute Distress - Extremities Exam Additional comments: RLE focused exam: Vasc: DP and PT non-palpable, temperature gradient is warm to cool from proximal to distal, Cap refill time: < 3 seconds to all digits, moderate non- pitting edema noted to the right forefoot Derm: Two surgical incisions: Mild anguinous drainage noted to dressing. #1 longitudinal surgical incision noted to the plantar aspect of the sub metatarsal 2 measuring approximately 4 x .3 cm and #2 surgical incision measuring approximately 2 cm x .3 cm on the dorsum of the foot at the level of the 2nd metatarsal head. Incisions connect forming a tunnel through the forefoot. Wound base is 100% granular with minimal sanguinous drainage when expressed, no fluctuance noted, no purulence, no active bleeding, no malodor, no tunneling but tracking present to the plantar surgical incision from the dorsal incision. (+) probe to bone down to both 2nd and 3rd metatarsals. no clinical suspicion of active infection at this time. Neuro: gross and protective sensation diminished Ortho: no pain with palpation to ulceration site, previous healed hallux amputation - Neurological Exam Neurological Exam: Alert, Awake, Oriented x3 Assessment and Plan - Assessment and Plan (Free Text) Assessment: 72 y/o male 18 days s/p debridement of right foot diabetic ulceration with sinus tract Plan: Patient seen and evaluated at bedside Discussed with attending, Dr. Baron Afebrile, WBC 8.9 MRI of foot reviewed: possible OM of the 2nd and 3rd metatarsals and proximal phalanges Continue abx per ID - Daptomycin, Linezolid, Meropenem Continue local wound care - Dakin's cleanse, 1/4" iodoform packing, DSD Continue multipodus boots at all times while in bed At this time, TMA is clinically indicated due to osteomyelitis of 2nd and 3rd mets and proximal phalanges with (+) probe to bone -Will hold off on surgical intervention as patient is not a stable candidate at this time Podiatry to continue to follow patient while in house <Eileen Baron - Last Filed: 12/15/17 15:31> Objective - Vital Signs/Intake and Output Vital Signs (last 24 hours): Temp Pulse Resp BP Pulse Ox 97.5 F L 90 18 123/70 92 L 12/15/17 12:00 12/15/17 14:00 12/15/17 12:00 12/15/17 12:00 12/15/17 06:00 Intake and Output: 12/15/17 12/15/17 06:59 18:59 Intake Total 100 Output Total 0 Balance 100 - Medications Medications: Current Medications Acetaminophen (Tylenol 325mg Tab) 650 mg PO Q6H PRN PRN Reason: Fever >100.4 F Albuterol/Ipratropium (Duoneb 3 Mg/0.5 Mg (3 Ml) Ud) 3 ml IH [id number] [facility] Last Admin: 12/15/17 14:27 Dose: 3 ml Aspirin (Aspirin Chewable) 81 mg PO DAILY [facility] Last Admin: 12/15/17 09:40 Dose: 81 mg Atorvastatin Calcium (Lipitor) 10 mg PO DIN [facility] Last Admin: 12/14/17 21:02 Dose: 10 mg Calcium Acetate (Phoslo) 667 mg PO WM [facility] Last Admin: 12/15/17 12:39 Dose: 667 mg Clopidogrel Bisulfate (Plavix) 75 mg PO DAILY [facility] Last Admin: 12/15/17 09:40 Dose: 75 mg Hydralazine HCl (Apresoline) 25 mg PO Q4 PRN PRN Reason: Other Hydralazine HCl (Apresoline) 10 mg IVP Q6 PRN PRN Reason: SBP >150 and/or DBP >90 Last Admin: 12/04/17 21:55 Dose: 10 mg Daptomycin 690 mg/ Sodium (Chloride) 100 mls @ 200 mls/hr IV QOTHERDAY [facility] Stop: 12/29/17 15:01 Last Admin: 12/14/17 21:58 Dose: 200 mls/hr Insulin Detemir (Levemir) 50 unit SC HS [facility] Last Admin: 12/14/17 21:00 Dose: Not Given Insulin Human Regular (Humulin R High) 0 units SC Q4 [facility] PRN Reason: Protocol Last Admin: 12/15/17 12:38 Dose: 4 units Levalbuterol HCl (Xopenex) 0.63 mg IH [id number] [facility] Last Admin: 12/05/17 08:01 Dose: 0.63 mg Levalbuterol HCl (Xopenex) 1.25 mg IH [id number] PRN PRN Reason: Shortness of Breath Last Admin: 12/06/17 05:35 Dose: 1.25 mg Methylprednisolone (Medrol) 12 mg PO BIDWM [facility] Metoprolol Tartrate (Lopressor) 5 mg IVP Q6H [facility] Last Admin: 12/10/17 09:25 Dose: Not Given Metoprolol Tartrate (Lopressor) 25 mg PO BID [facility] Midazolam HCl (Versed Inj) 4 mg IVP Q4 PRN PRN Reason: Agitation Last Admin: 12/07/17 17:44 Dose: 4 mg Multivitamins (Thera Tab) 1 tab PO DAILY [facility] Last Admin: 12/15/17 09:40 Dose: 1 tab Pantoprazole Sodium (Protonix Ec Tab) 40 mg PO ACB [facility] Last Admin: 12/15/17 08:10 Dose: 40 mg Sodium Hypochlorite (Dakins Solution 0.5%) 0 ml TOP DAILY [facility] Last Admin: 12/12/17 10:05 Dose: Not Given - Labs Labs: 12/15/17 07:00 12/15/17 06:30 PT 12.7 SECONDS (9.4-12.5) H 12/08/17 08:30 INR 1.10 (0.93-1.08) H 12/08/17 08:30 APTT 30.7 Seconds (25.1-36.5) 12/08/17 08:30 Attending/Attestation - Attestation I have personally seen and examined this patient.: Yes I have fully participated in the care of the patient.: Yes I have reviewed all pertinent clinical information, including history, physical exam and plan: Yes Notes (Text): 12/15/17 15:[address] Reyna ID regarding case; continue present care until patient is stable
[2017-12-13] MEDS: Insulin Detemir 100 units/ml Vial (Levemir) SC SCH (22:13)
[2017-12-14] MEDS: Albuterol-Ipratrop 3 mg / 0.5 (3 ml) UD IH SCH ×4 (01:55→19:52)
[2017-12-14] MEDS: Insulin Reg-HIGH-Coverage SC SCH ×6 (04:00→20:32)
[2017-12-14 06:41] LABS: HEMOGLOBIN 9.6 g/dL (14.0-18.0); MEAN CELL VOLUME 84.7 fl (80.0-105.0); MEAN CORPUSCULAR HEMOGLOBIN 28.2 pg (25.0-35.0); MEAN CORPUSCULAR HGB CONC 33.3 g/dl (31.0-37.0); MEAN PLATELET VOLUME 9.6 fl (7.0-11.0); RBC 3.4 10^6/uL (3.5-6.1); RED CELL DISTRIBUTION WIDTH 14.3 % (11.5-14.5); WHITE BLOOD COUNT 12.5 10^3/ul (4.5-11.0)
[2017-12-14 07:05] LABS: ALB/GLOB RATIO 0.7 (1.1-1.8); ALBUMIN 2.6 g/dL (3.0-4.8); CALCIUM 8.9 mg/dL (8.4-10.5)
[2017-12-14] MEDS ORDERED: Iodixanol 320 MG/ML 100 ML BOTTLE IV ONE (07:07)
[2017-12-14] MEDS ORDERED: Iohexol 350mgl/ml 50 ML ONE (07:07)
[2017-12-14] MEDS ORDERED: Lidocaine 2% Inj (20ml) ONE (07:07)
[2017-12-14] MEDS ORDERED: Iodixanol 320 MG/ML 200 ML BOTTLE IV ONE (07:08)
[2017-12-14] MEDS ORDERED: Phenylephrine 10 mg/ml Inj ONE (08:30)
--- NOTE | 2017-12-14 08:46 | PN ---
DATE: 12/14/2017 PULMONARY NOTE SUBJECTIVE: The patient appears comfortable this morning. He is not short of breath at rest. PHYSICAL EXAMINATION VITAL SIGNS: Temperature is 97.4, pulse 81, respirations 18, blood pressure 136/73. Oxygen saturation on nasal cannula is 98%. HEENT: Normocephalic, atraumatic. No JVD. CARDIOVASCULAR: Systolic ejection murmur at the lower left sternal border. No S3 gallop. LUNGS: Decreased breath sounds at the bases with minimal crackles. Very minimal/less rhonchi. No wheezing. EXTREMITIES: The right foot remains wrapped. There is certainly less edema in both lower extremities. There is no cyanosis or clubbing. Calves are nontender to palpation. GI: Abdomen is soft, nontender and nondistended. Bowel sounds are positive. SKIN: No acute rash. NEUROLOGIC: Limited at the present time. PERTINENT LABORATORY DATA: Chest x-ray was done this morning and reviewed. Mild bilateral pulmonary infiltrates remain. The infiltrates have significantly improved/decreased - compared to last week. IMPRESSION: 1. Status post respiratory failure. 2. Acute respiratory distress syndrome - resolving. 3. Mild bronchospasm. 4. Sepsis syndrome. 5. Renal insufficiency. 6. Mild anemia. 7. Right foot infection. 8. Mitral valve endocarditis. PLAN: The patient remains extubated. He is awake and alert. He is not short of breath. He does state to feeling much better overall. I did discuss the case with the night nurse at length. The night nurse stated that the patient had a very good night. I did review the chest x-ray as above. The chest x-ray remains with mild bilateral pulmonary infiltrates. However, again, the chest x-ray is significantly improved from last week. I would continue with the antibiotic coverage - as per Infectious Disease. Input by Dr. Hernández is noted. The temperatures have now resolved. On physical exam, there is certainly less bronchospasm noted. In addition, there is a significant decrease in the alveolar-arterial gradient. Oxygen saturation is currently 98% on nasal cannula. I will continue with the current nebulizer treatments and aspiration precautions for now. Inputs by Cardiology and Renal are noted. The patient is for cardiac catheterization later this morning. The clinical status of this patient is significantly improved overall. However, his future status/prognosis does remain guarded. I will discuss the above with the entire ICU team in the next few moments. I will also discuss the above with Dr. Mendez. Baljinder Dejesus MD [facility]
--- NOTE | 2017-12-14 08:56 | CP.PCM.PN ---
<Andrea Khan - Last Filed: 12/14/17 08:53> Subjective - Date & Time of Evaluation Date of Evaluation: 12/14/17 Time of Evaluation: 08:53 - Subjective Subjective: Podiatry Progress Note - Dr. Baron/Luciana 72 y/o male seen and examined at bedside this morning in ICU s/p debridement of right foot diabetic ulceration with sinus tract and underlying OM. Patient resting comfortably, NAD. More awake and communicative today. Scheduled to go for coronary angio today. Offers no complaitns to right foot. Dressing to RLE clean/dry/intact with no strikethrough noted. Multipodus boots present bilaterally. Denies N/V/F/D/C. Objective - Vital Signs/Intake and Output Vital Signs (last 24 hours): Temp Pulse Resp BP Pulse Ox 97.7 F 79 15 119/53 L 94 L 12/14/17 08:00 12/14/17 08:00 12/14/17 07:42 12/14/17 08:00 12/14/17 08:00 Intake and Output: 12/14/17 12/14/17 06:59 18:59 Intake Total 100 Output Total 50 Balance 50 - Medications Medications: Current Medications Acetaminophen (Tylenol 325mg Tab) 650 mg PO Q6H PRN PRN Reason: Fever >100.4 F Albuterol/Ipratropium (Duoneb 3 Mg/0.5 Mg (3 Ml) Ud) 3 ml IH [id number] [facility] Last Admin: 12/14/17 07:25 Dose: 3 ml Aspirin (Aspirin Chewable) 81 mg PO DAILY [facility] Last Admin: 12/14/17 07:01 Dose: 81 mg Atorvastatin Calcium (Lipitor) 10 mg PO DIN [facility] Last Admin: 12/13/17 17:43 Dose: 10 mg Calcium Acetate (Phoslo) 667 mg PO WM [facility] Last Admin: 12/13/17 17:43 Dose: 667 mg Clopidogrel Bisulfate (Plavix) 75 mg PO DAILY [facility] Last Admin: 12/14/17 06:00 Dose: 75 mg Hydralazine HCl (Apresoline) 25 mg PO Q4 PRN PRN Reason: Other Hydralazine HCl (Apresoline) 10 mg IVP Q6 PRN PRN Reason: SBP >150 and/or DBP >90 Last Admin: 12/04/17 21:55 Dose: 10 mg Hydrocortisone Sodium Succinate (Solu-Cortef) 50 mg IVP Q12 [facility] Last Admin: 12/13/17 22:13 Dose: 50 mg Daptomycin 690 mg/ Sodium (Chloride) 100 mls @ 200 mls/hr IV QOTHERDAY [facility] Stop: 12/29/17 15:01 Last Admin: 12/12/17 09:52 Dose: 200 mls/hr Insulin Detemir (Levemir) 50 unit SC HS [facility] Last Admin: 12/13/17 22:13 Dose: 50 unit Insulin Human Regular (Humulin R High) 0 units SC Q4 [facility] PRN Reason: Protocol Last Admin: 12/14/17 08:09 Dose: Not Given Levalbuterol HCl (Xopenex) 0.63 mg IH [id number] [facility] Last Admin: 12/05/17 08:01 Dose: 0.63 mg Levalbuterol HCl (Xopenex) 1.25 mg IH [id number] PRN PRN Reason: Shortness of Breath Last Admin: 12/06/17 05:35 Dose: 1.25 mg Metoprolol Tartrate (Lopressor) 5 mg IVP Q6H [facility] Last Admin: 12/10/17 09:25 Dose: Not Given Metoprolol Tartrate (Lopressor) 25 mg PO BID [facility] Midazolam HCl (Versed Inj) 4 mg IVP Q4 PRN PRN Reason: Agitation Last Admin: 12/07/17 17:44 Dose: 4 mg Multivitamins (Thera Tab) 1 tab PO DAILY [facility] Last Admin: 12/13/17 09:55 Dose: 1 tab Pantoprazole Sodium (Protonix Ec Tab) 40 mg PO ACB [facility] Sodium Hypochlorite (Dakins Solution 0.5%) 0 ml TOP DAILY [facility] Last Admin: 12/12/17 10:05 Dose: Not Given - Labs Labs: 12/14/17 05:30 12/14/17 05:30 PT 12.7 SECONDS (9.4-12.5) H 12/08/17 08:30 INR 1.10 (0.93-1.08) H 12/08/17 08:30 APTT 30.7 Seconds (25.1-36.5) 12/08/17 08:30 - Constitutional Appears: Well, Non-toxic, No Acute Distress - Extremities Exam Additional comments: RLE focused exam: Vasc: DP and PT non-palpable, temperature gradient is warm to cool from proximal to distal, Cap refill time: < 3 seconds to all digits, moderate non- pitting edema noted to the right forefoot Derm: Two surgical incisions: Mild sanguinous drainage noted to dressing. #1 longitudinal surgical incision noted to the plantar aspect of the sub metatarsal 2 measuring approximately 4 x .3 cm and #2 surgical incision measuring approximately 2 cm x .3 cm on the dorsum of the foot at the level of the 2nd metatarsal head. Incisions connect forming a tunnel through the forefoot however are granulating inwards. Wound base is 100% granular with no drainage when expressed, no fluctuance noted, no purulence, no active bleeding, no malodor, no tunneling but tracking present to the plantar surgical incision from the dorsal incision. (+) probe to bone down to both 2nd and 3rd metatarsals. no clinical suspicion of active infection at this time. Neuro: gross and protective sensation diminished Ortho: no pain with palpation to ulceration site, previous healed hallux amputation - Neurological Exam Neurological Exam: Alert, Awake, Oriented x3 - Psychiatric Exam Psychiatric exam: Normal Affect, Normal Mood Assessment and Plan - Assessment and Plan (Free Text) Assessment: 72 y/o male 19 days s/p debridement of right foot diabetic ulceration with sinus tract Plan: Patient seen and evaluated at bedside alongside attending, Dr. Chowdhury Afebrile, WBC increasing 12.5 MRI of foot reviewed: possible OM of the 2nd and 3rd metatarsals and proximal phalanges Continue local wound care - Dakin's cleanse, 1/" iodoform packing, DSD -Right foot improving Continue multipodus boots at all times while in bed At this time, TMA is clinically indicated due to osteomyelitis of 2nd and 3rd mets and proximal phalanges with (+) probe to bone -Will hold off on surgical intervention as patient is not a stable candidate at this time Podiatry will continue to follow while patient in house <Walker Chowdhury - Last Filed: 12/15/17 07:15> Objective - Vital Signs/Intake and Output Vital Signs (last 24 hours): Temp Pulse Resp BP Pulse Ox 98.7 F 93 H 19 125/80 92 L 12/15/17 06:00 12/15/17 06:00 12/15/17 06:00 12/15/17 06:00 12/15/17 06:00 Intake and Output: 12/15/17 12/15/17 06:59 18:59 Intake Total 100 Output Total 0 Balance 100 - Medications Medications: Current Medications Acetaminophen (Tylenol 325mg Tab) 650 mg PO Q6H PRN PRN Reason: Fever >100.4 F Albuterol/Ipratropium (Duoneb 3 Mg/0.5 Mg (3 Ml) Ud) 3 ml IH [id number] [facility] Last Admin: 12/15/17 02:50 Dose: 3 ml Aspirin (Aspirin Chewable) 81 mg PO DAILY [facility] Last Admin: 12/14/17 21:03 Dose: 81 mg Atorvastatin Calcium (Lipitor) 10 mg PO DIN [facility] Last Admin: 12/14/17 21:02 Dose: 10 mg Calcium Acetate (Phoslo) 667 mg PO WM [facility] Last Admin: 12/14/17 18:47 Dose: Not Given Clopidogrel Bisulfate (Plavix) 75 mg PO DAILY [facility] Last Admin: 12/14/17 06:00 Dose: 75 mg Hydralazine HCl (Apresoline) 25 mg PO Q4 PRN PRN Reason: Other Hydralazine HCl (Apresoline) 10 mg IVP Q6 PRN PRN Reason: SBP >150 and/or DBP >90 Last Admin: 12/04/17 21:55 Dose: 10 mg Hydrocortisone Sodium Succinate (Solu-Cortef) 50 mg IVP Q12 [facility] Last Admin: 12/14/17 21:02 Dose: 50 mg Daptomycin 690 mg/ Sodium (Chloride) 100 mls @ 200 mls/hr IV QOTHERDAY [facility] Stop: 12/29/17 15:01 Last Admin: 12/14/17 21:58 Dose: 200 mls/hr Insulin Detemir (Levemir) 50 unit SC HS [facility] Last Admin: 12/14/17 21:00 Dose: Not Given Insulin Human Regular (Humulin R High) 0 units SC Q4 [facility]ERRY PRN Reason: Protocol Last Admin: 12/15/17 04:51 Dose: Not Given Levalbuterol HCl (Xopenex) 0.63 mg IH [id number] [facility] Last Admin: 12/05/17 08:01 Dose: 0.63 mg Levalbuterol HCl (Xopenex) 1.25 mg IH [id number] PRN PRN Reason: Shortness of Breath Last Admin: 12/06/17 05:35 Dose: 1.25 mg Metoprolol Tartrate (Lopressor) 5 mg IVP Q6H [facility] Last Admin: 12/10/17 09:25 Dose: Not Given Metoprolol Tartrate (Lopressor) 25 mg PO BID [facility] Midazolam HCl (Versed Inj) 4 mg IVP Q4 PRN PRN Reason: Agitation Last Admin: 12/07/17 17:44 Dose: 4 mg Multivitamins (Thera Tab) 1 tab PO DAILY [facility] Last Admin: 12/14/17 21:03 Dose: 1 tab Pantoprazole Sodium (Protonix Ec Tab) 40 mg PO ACB [facility] Last Admin: 12/14/17 17:29 Dose: Not Given Sodium Hypochlorite (Dakins Solution 0.5%) 0 ml TOP DAILY [facility] Last Admin: 12/12/17 10:05 Dose: Not Given - Labs Labs: 12/14/17 05:30 12/14/17 05:30 PT 12.7 SECONDS (9.4-12.5) H 12/08/17 08:30 INR 1.10 (0.93-1.08) H 12/08/17 08:30 APTT 30.7 Seconds (25.1-36.5) 12/08/17 08:30 Attending/Attestation - Attestation I have personally seen and examined this patient.: Yes I have fully participated in the care of the patient.: Yes I have reviewed all pertinent clinical information, including history, physical exam and plan: Yes
[2017-12-14] MEDS ORDERED: Midazolam 2 MG/2 ML VIAL ONE ×2 (08:59→09:26)
[2017-12-14] MEDS ORDERED: Naloxone 0.4 mg/ml Inj (Adult) ONE (09:40)
--- NOTE | 2017-12-14 09:43 | RAD ---
HISTORY: follow up COMPARISON: 12/13/2017 FINDINGS: LUNGS: No active pulmonary disease. PLEURA: No significant pleural effusion identified, no pneumothorax apparent. CARDIOVASCULAR: There is moderate vascular and interstitial congestion OSSEOUS STRUCTURES: No significant abnormalities. VISUALIZED UPPER ABDOMEN: Normal. OTHER FINDINGS: Dialysis catheter IMPRESSION: There is moderate vascular and interstitial congestion
--- NOTE | 2017-12-14 15:07 | CP.PCM.PN ---
Subjective - Date & Time of Evaluation Date of Evaluation: 12/14/17 Time of Evaluation: 15:06 - Subjective Subjective: Nephrology Consultation Note: Assessment: stable acute hypoxic respi failure with fluid overload/CHF pattern/pulm edema And ARDS status post right heart: IMPROVED oligoanuric Acute Kidney Injury (N17.9) likely due to sepsis, wound infection>> leading to ATN, possible AIN due to Abx/infection But urine eos negative: DIALYSIS DEPENDENT DM, HTN (I12.0) active cigar smoker, obesity toe osteomyelitis with sepsis, Mitral valve infective endocarditis Plan will plan for HD Today as ordered. plan to continue with renal replacement therapy until his [place] kidney function improves. maintain hemodynamics stable. hold ACEI/ARB due to ROHINI. hold [employer] Monitor Input/Output, daily weights and renal function with basic metabolic panel will add phos binders s/p Aranesp 60 g 12/12/17, last Hb 9.6 s/p coronary angiogram 12/14/17 Dose meds/antibiotics for reduced GFR/HD status. Avoid fleets enema/magnesium based laxatives. Avoid nephrotoxins/NSAIDs/ iodinated contrast (unless needed emergently) Glycemic control Further work up/management as per primary team Thanks for allowing me to participate in care of your patient. Will follow patient with you. Please call if any Qs. d/w team Dr Caden Muller Office: [phone] HPI: Pt is a 72 M with hx of diabetes Mellitus (9 years), hypertension (years) , active cigar smoker, obesity and Rt foot infection, recent ROHINI (peaked cr 2.1 ) presented with complaints of Rt foot wound infection. renal consult for ROHINI eval. his cr 1.1 in 2017 and at d/c last hospitalization Denies OTC/herbal meds or NSAIDs No recent iodinated contrast exposure. episodes of low BP noted. ROS: Patient is s/p cath. sleepy Physical Examination: General Appearance:. obese. better appearing. comfortable Vitals reviewed and noted as below Head; Atraumatic, normocephalic ENT: extubated EYES: Pupils are equal, round and reactive to light accommodation. Sclera is anicteric. Neck; supple no lymphadenopathy, no thyromegaly or bruit Lungs: normal respiratory rate/effort. Breath sounds bilateral clear anteriorly Heart: Normal rate. s1s2 normal. No rub or gallop. Extremities: no edema. No varicose veins. Rt foot dressed. Neurological: Patient is sleepy today Skin: Warm and dry. Normal turgor. chronic psoriasis rash. Palpitation: Normal elasticity for age. Abdomen: Abdomen is soft. Bowel sounds +. There is no abdominal tenderness, no guarding/rigidity no organomegaly Psych: Unable MSK: no joint tenderness or swelling. Digits and nails normal, no deformity : kidney or bladder not palpable. access: Rt IJ permacath Labs/imaging reviewed. Past medical history, past surgical history, family history, social history, allergy reviewed and noted as below Family hx: no hx of CKD. Rest non-contributory workup: renal SONO: WNL UA large blood Objective - Vital Signs/Intake and Output Vital Signs (last 24 hours): Temp Pulse Resp BP Pulse Ox 98.7 F 78 18 138/71 94 L 12/14/17 10:30 12/14/17 14:15 12/14/17 14:15 12/14/17 14:15 12/14/17 08:00 Intake and Output: 12/14/17 12/14/17 06:59 18:59 Intake Total 100 Output Total 50 Balance 50 - Medications Medications: Current Medications Acetaminophen (Tylenol 325mg Tab) 650 mg PO Q6H PRN PRN Reason: Fever >100.4 F Albuterol/Ipratropium (Duoneb 3 Mg/0.5 Mg (3 Ml) Ud) 3 ml IH [id number] [facility] Last Admin: 12/14/17 13:07 Dose: 3 ml Aspirin (Aspirin Chewable) 81 mg PO DAILY [facility] Last Admin: 12/14/17 07:01 Dose: 81 mg Atorvastatin Calcium (Lipitor) 10 mg PO DIN [facility] Last Admin: 12/13/17 17:43 Dose: 10 mg Calcium Acetate (Phoslo) 667 mg PO WM [facility] Last Admin: 12/14/17 13:56 Dose: Not Given Clopidogrel Bisulfate (Plavix) 75 mg PO DAILY [facility] Last Admin: 12/14/17 06:00 Dose: 75 mg Hydralazine HCl (Apresoline) 25 mg PO Q4 PRN PRN Reason: Other Hydralazine HCl (Apresoline) 10 mg IVP Q6 PRN PRN Reason: SBP >150 and/or DBP >90 Last Admin: 12/04/17 21:55 Dose: 10 mg Hydrocortisone Sodium Succinate (Solu-Cortef) 50 mg IVP Q12 [facility] Last Admin: 12/14/17 13:58 Dose: 50 mg Daptomycin 690 mg/ Sodium (Chloride) 100 mls @ 200 mls/hr IV QOTHERDAY [facility] Stop: 12/29/17 15:01 Last Admin: 12/12/17 09:52 Dose: 200 mls/hr Insulin Detemir (Levemir) 50 unit SC HS [facility] Last Admin: 12/13/17 22:13 Dose: 50 unit Insulin Human Regular (Humulin R High) 0 units SC Q4 [facility] PRN Reason: Protocol Last Admin: 12/14/17 12:23 Dose: Not Given Levalbuterol HCl (Xopenex) 0.63 mg IH [id number] [facility] Last Admin: 12/05/17 08:01 Dose: 0.63 mg Levalbuterol HCl (Xopenex) 1.25 mg IH [id number] PRN PRN Reason: Shortness of Breath Last Admin: 12/06/17 05:35 Dose: 1.25 mg Metoprolol Tartrate (Lopressor) 5 mg IVP Q6H [facility] Last Admin: 12/10/17 09:25 Dose: Not Given Metoprolol Tartrate (Lopressor) 25 mg PO BID [facility] Midazolam HCl (Versed Inj) 4 mg IVP Q4 PRN PRN Reason: Agitation Last Admin: 12/07/17 17:44 Dose: 4 mg Multivitamins (Thera Tab) 1 tab PO DAILY [facility] Last Admin: 12/13/17 09:55 Dose: 1 tab Pantoprazole Sodium (Protonix Ec Tab) 40 mg PO ACB [facility] Sodium Hypochlorite (Dakins Solution 0.5%) 0 ml TOP DAILY [facility] Last Admin: 12/12/17 10:05 Dose: Not Given - Labs Labs: 12/14/17 05:30 12/14/17 05:30 PT 12.7 SECONDS (9.4-12.5) H 12/08/17 08:30 INR 1.10 (0.93-1.08) H 12/08/17 08:30 APTT 30.7 Seconds (25.1-36.5) 12/08/17 08:30
[2017-12-14] MEDS: Pantoprazole 40 mg EC Tab PO SCH (17:29)
[2017-12-14] MEDS: Multivitamin Therapeutic Tab PO SCH ×2 (17:29→21:03)
--- NOTE | 2017-12-14 17:51 | PN ---
DATE: SUBJECTIVE: I saw him in the intensive care unit this morning. He is much more alert. His risk restraints are off. He is eating a little bit. He is on the mask for oxygen. He is on Apresoline, chewable aspirin, Dakin solution, daptomycin IV, DuoNeb, insulin, Levemir, Lipitor, Lopressor which is on hold, PhosLo, Plavix, Protonix, Solu-Cortef he is down to 50 every 12 hours, Thera-Tabs, Tylenol, Versed, and Xopenex which is on hold. OBJECTIVE: VITAL SIGNS: He has a 98.7 temperature, 84 pulse, 153/82 blood pressure, 18 respiratory rate, and he has 97% O2 sat. HEENT: His head is atraumatic, normocephalic. He is more alert, more coherent, more appropriate. Throat is moist. NECK: Supple. HEART: Regular rate. LUNGS: Decreased breath sounds, but clear. ABDOMEN: Morbidly obese, soft, nontender. Positive bowel sounds. EXTREMITIES: He has a foot that is bandaged for an ulcer and being treated for that. LABORATORY DATA: He has a 12.5 white count on steroid, 9.6 hemoglobin, 28.8 hematocrit with 215 platelets. He has a 141 sodium, potassium 3.6. BUN 95, creatinine 4.2; the 95 went up, the 4.2 went down. GFR is 14. Sugar is 144. Calcium is 5.5. Total bilirubin is 0.8, AST is 49, ALT is 39, alk phos 137. He is being seen by multiple physicians. He had a cardiac catheterization today by Dr. Whitehead and hopefully, he will do well and we will try to get him to rehab once he is stable. Patient with acute respiratory failure, status post intubation and extubation, endocarditis of the mitral valve, severe foot infection and ulcer. Reagan Mendez DO
[2017-12-14] MEDS: Insulin Detemir 100 units/ml Vial (Levemir) SC SCH (21:00)
[2017-12-15] MEDS: Insulin Reg-HIGH-Coverage SC SCH ×7 (01:17→23:56)
[2017-12-15] MEDS: Albuterol-Ipratrop 3 mg / 0.5 (3 ml) UD IH SCH ×4 (02:50→18:59)
[2017-12-15 07:20] LABS: MEAN CELL VOLUME 86.6 fl (80.0-105.0); MEAN CORPUSCULAR HEMOGLOBIN 28.6 pg (25.0-35.0); MEAN PLATELET VOLUME 9.8 fl (7.0-11.0); RBC 3.5 10^6/uL (3.5-6.1); RED CELL DISTRIBUTION WIDTH 14.7 % (11.5-14.5); WHITE BLOOD COUNT 15.8 10^3/ul (4.5-11.0)
[2017-12-15 07:38] LABS: ALB/GLOB RATIO 0.8 (1.1-1.8); ALBUMIN 2.8 g/dL (3.0-4.8); CALCIUM 8.8 mg/dL (8.4-10.5)
[2017-12-15] MEDS: Pantoprazole 40 mg EC Tab PO SCH (08:10)
--- NOTE | 2017-12-15 08:37 | CP.PCM.PN ---
<Marion Dumontwandydoroteo - Last Filed: 12/15/17 08:34> Subjective - Date & Time of Evaluation Date of Evaluation: 12/15/17 Time of Evaluation: 08:34 - Subjective Subjective: Podiatry Progress Note - Dr. Baron/Luciana 72 y/o male seen and examined at bedside this morning s/p debridement of right foot diabetic ulceration with sinus tract and underlying OM. Patient resting comfortably, NAD. Patient is AAOx3. Offers no complains to right foot. Dressing to RLE clean/dry/intact with no strikethrough noted. Multipodus boots present bilaterally. Denies N/V/F/D/C. Objective - Vital Signs/Intake and Output Vital Signs (last 24 hours): Temp Pulse Resp BP Pulse Ox 98.7 F 93 H 19 125/80 92 L 12/15/17 06:00 12/15/17 06:00 12/15/17 06:00 12/15/17 06:00 12/15/17 06:00 Intake and Output: 12/15/17 12/15/17 06:59 18:59 Intake Total 100 Output Total 0 Balance 100 - Medications Medications: Current Medications Acetaminophen (Tylenol 325mg Tab) 650 mg PO Q6H PRN PRN Reason: Fever >100.4 F Albuterol/Ipratropium (Duoneb 3 Mg/0.5 Mg (3 Ml) Ud) 3 ml IH [id number] [facility] Last Admin: 12/15/17 07:46 Dose: 3 ml Aspirin (Aspirin Chewable) 81 mg PO DAILY [facility] Last Admin: 12/14/17 21:03 Dose: 81 mg Atorvastatin Calcium (Lipitor) 10 mg PO DIN [facility] Last Admin: 12/14/17 21:02 Dose: 10 mg Calcium Acetate (Phoslo) 667 mg PO WM [facility] Last Admin: 12/15/17 08:10 Dose: 667 mg Clopidogrel Bisulfate (Plavix) 75 mg PO DAILY [facility] Last Admin: 12/14/17 06:00 Dose: 75 mg Hydralazine HCl (Apresoline) 25 mg PO Q4 PRN PRN Reason: Other Hydralazine HCl (Apresoline) 10 mg IVP Q6 PRN PRN Reason: SBP >150 and/or DBP >90 Last Admin: 12/04/17 21:55 Dose: 10 mg Hydrocortisone Sodium Succinate (Solu-Cortef) 50 mg IVP Q12 [facility] Last Admin: 12/14/17 21:02 Dose: 50 mg Daptomycin 690 mg/ Sodium (Chloride) 100 mls @ 200 mls/hr IV QOTHERDAY [facility] Stop: 12/29/17 15:01 Last Admin: 12/14/17 21:58 Dose: 200 mls/hr Insulin Detemir (Levemir) 50 unit SC HS [facility] Last Admin: 12/14/17 21:00 Dose: Not Given Insulin Human Regular (Humulin R High) 0 units SC Q4 [facility] PRN Reason: Protocol Last Admin: 12/15/17 08:25 Dose: 2 units Levalbuterol HCl (Xopenex) 0.63 mg IH [id number] [facility] Last Admin: 12/05/17 08:01 Dose: 0.63 mg Levalbuterol HCl (Xopenex) 1.25 mg IH [id number] PRN PRN Reason: Shortness of Breath Last Admin: 12/06/17 05:35 Dose: 1.25 mg Metoprolol Tartrate (Lopressor) 5 mg IVP Q6H [facility] Last Admin: 12/10/17 09:25 Dose: Not Given Metoprolol Tartrate (Lopressor) 25 mg PO BID [facility] Midazolam HCl (Versed Inj) 4 mg IVP Q4 PRN PRN Reason: Agitation Last Admin: 12/07/17 17:44 Dose: 4 mg Multivitamins (Thera Tab) 1 tab PO DAILY [facility] Last Admin: 12/14/17 21:03 Dose: 1 tab Pantoprazole Sodium (Protonix Ec Tab) 40 mg PO ACB [facility] Last Admin: 12/15/17 08:10 Dose: 40 mg Sodium Hypochlorite (Dakins Solution 0.5%) 0 ml TOP DAILY [facility] Last Admin: 12/12/17 10:05 Dose: Not Given - Labs Labs: 12/15/17 07:00 12/15/17 06:30 PT 12.7 SECONDS (9.4-12.5) H 12/08/17 08:30 INR 1.10 (0.93-1.08) H 12/08/17 08:30 APTT 30.7 Seconds (25.1-36.5) 12/08/17 08:30 - Constitutional Appears: Well, Non-toxic, No Acute Distress - Extremities Exam Additional comments: RLE focused exam: Vasc: DP and PT non-palpable, temperature gradient is warm to cool from proximal to distal, Cap refill time: < 3 seconds to all digits, moderate non- pitting edema noted to the right forefoot Derm: Two surgical incisions: Mild sanguinous drainage noted to dressing. #1 longitudinal surgical incision noted to the plantar aspect of the sub metatarsal 2 measuring approximately 4 x .3 cm and #2 surgical incision measuring approximately 2 cm x .3 cm on the dorsum of the foot at the level of the 2nd metatarsal head. Incisions connect forming a tunnel through the forefoot however are granulating inwards. Wound base is 100% granular with no drainage when expressed, no fluctuance noted, no purulence, no active bleeding, no malodor, no tunneling but tracking present to the plantar surgical incision from the dorsal incision. (+) probe to bone down to both 2nd and 3rd metatarsals. no clinical suspicion of active infection at this time. Neuro: gross and protective sensation diminished Ortho: no pain with palpation to ulceration site, previous healed hallux amputation - Neurological Exam Neurological Exam: Alert, Awake, Oriented x3 - Psychiatric Exam Psychiatric exam: Normal Affect, Normal Mood Assessment and Plan - Assessment and Plan (Free Text) Assessment: 72 y/o male 20 days s/p debridement of right foot diabetic ulceration with sinus tract Plan: Patient seen and evaluated at bedside alongside attending, Dr. Chowdhury Afebrile, WBC increasing 15.8 MRI of foot reviewed: possible OM of the 2nd and 3rd metatarsals and proximal phalanges Continue local wound care - Dakin's cleanse, 1/" iodoform packing, DSD -Right foot improving Continue multipodus boots at all times while in bed At this time, TMA is clinically indicated due to osteomyelitis of 2nd and 3rd mets and proximal phalanges with (+) probe to bone -Will hold off on surgical intervention as patient is not a stable candidate at this time Podiatry will continue to follow while patient in house <Walker Chowdhury - Last Filed: 12/16/17 08:21> Objective - Vital Signs/Intake and Output Vital Signs (last 24 hours): Temp Pulse Resp BP Pulse Ox 98 F 78 20 125/69 96 12/16/17 06:00 12/16/17 06:00 12/16/17 06:00 12/16/17 06:00 12/16/17 06:00 Intake and Output: 12/16/17 12/16/17 06:59 18:59 Intake Total 240 Output Total 50 Balance 190 - Medications Medications: Current Medications Acetaminophen (Tylenol 325mg Tab) 650 mg PO Q6H PRN PRN Reason: Fever >100.4 F Albuterol/Ipratropium (Duoneb 3 Mg/0.5 Mg (3 Ml) Ud) 3 ml IH [id number] [facility] Last Admin: 12/16/17 07:46 Dose: 3 ml Aspirin (Aspirin Chewable) 81 mg PO DAILY [facility] Last Admin: 12/15/17 09:40 Dose: 81 mg Atorvastatin Calcium (Lipitor) 10 mg PO DIN [facility] Last Admin: 12/15/17 17:05 Dose: 10 mg Calcium Acetate (Phoslo) 667 mg PO WM [facility] Last Admin: 12/15/17 17:05 Dose: 667 mg Clopidogrel Bisulfate (Plavix) 75 mg PO DAILY [facility] Last Admin: 12/15/17 09:40 Dose: 75 mg Hydralazine HCl (Apresoline) 25 mg PO Q4 PRN PRN Reason: Other Hydralazine HCl (Apresoline) 10 mg IVP Q6 PRN PRN Reason: SBP >150 and/or DBP >90 Last Admin: 12/04/17 21:55 Dose: 10 mg Daptomycin 690 mg/ Sodium (Chloride) 100 mls @ 200 mls/hr IV QOTHERDAY [facility] Stop: 12/29/17 15:01 Last Admin: 12/14/17 21:58 Dose: 200 mls/hr Insulin Detemir (Levemir) 50 unit SC [facility] Last Admin: 12/15/17 23:57 Dose: Not Given Insulin Human Regular (Humulin R High) 0 units SC Q4 [facility] PRN Reason: Protocol Last Admin: 12/16/17 05:01 Dose: Not Given Levalbuterol HCl (Xopenex) 0.63 mg IH [id number] [facility] Last Admin: 12/05/17 08:01 Dose: 0.63 mg Levalbuterol HCl (Xopenex) 1.25 mg IH [id number] PRN PRN Reason: Shortness of Breath Last Admin: 12/06/17 05:35 Dose: 1.25 mg Methylprednisolone (Medrol) 12 mg PO BIDWM [facility] Last Admin: 12/15/17 17:04 Dose: 12 mg Metoprolol Tartrate (Lopressor) 5 mg IVP Q6H [facility] Last Admin: 12/10/17 09:25 Dose: Not Given Metoprolol Tartrate (Lopressor) 25 mg PO BID [facility] Midazolam HCl (Versed Inj) 4 mg IVP Q4 PRN PRN Reason: Agitation Last Admin: 12/07/17 17:44 Dose: 4 mg Multivitamins (Thera Tab) 1 tab PO DAILY [facility] Last Admin: 12/15/17 09:40 Dose: 1 tab Pantoprazole Sodium (Protonix Susp) 40 mg PO 0600 [facility] Sodium Hypochlorite (Dakins Solution 0.5%) 0 ml TOP DAILY [facility] Last Admin: 12/12/17 10:05 Dose: Not Given - Labs Labs: 12/16/17 07:31 12/16/17 07:31 PT 12.7 SECONDS (9.4-12.5) H 12/08/17 08:30 INR 1.10 (0.93-1.08) H 12/08/17 08:30 APTT 30.7 Seconds (25.1-36.5) 12/08/17 08:30 Attending/Attestation - Attestation I have personally seen and examined this patient.: Yes I have fully participated in the care of the patient.: Yes I have reviewed all pertinent clinical information, including history, physical exam and plan: Yes
[2017-12-15] MEDS: Multivitamin Therapeutic Tab PO SCH (09:40)
--- NOTE | 2017-12-15 11:26 | RAD ---
HISTORY: follow up COMPARISON: 12/14/2017 FINDINGS: LUNGS: No active pulmonary disease. PLEURA: No significant pleural effusion identified, no pneumothorax apparent. CARDIOVASCULAR: Mild cardiomegaly. Mild vascular congestion. No change OSSEOUS STRUCTURES: No significant abnormalities. VISUALIZED UPPER ABDOMEN: Normal. OTHER FINDINGS: Right-sided dialysis catheter IMPRESSION: Mild vascular congestion unchanged
--- NOTE | 2017-12-15 11:28 | CP.PCM.PN ---
Subjective - Date & Time of Evaluation Date of Evaluation: 12/15/17 Time of Evaluation: 10:25 - Subjective Subjective: Patient is comfortable in bed, no fevers, not in distress, no SOB at rest, no diarrhea, improved pain in the right foot. Objective - Vital Signs/Intake and Output Vital Signs (last 24 hours): Temp Pulse Resp BP Pulse Ox 98.7 F 93 H 19 125/80 92 L 12/15/17 06:00 12/15/17 06:00 12/15/17 06:00 12/15/17 06:00 12/15/17 06:00 Intake and Output: 12/15/17 12/15/17 06:59 18:59 Intake Total 100 Output Total 0 Balance 100 - Medications Medications: Current Medications Acetaminophen (Tylenol 325mg Tab) 650 mg PO Q6H PRN PRN Reason: Fever >100.4 F Albuterol/Ipratropium (Duoneb 3 Mg/0.5 Mg (3 Ml) Ud) 3 ml IH [id number] [facility] Last Admin: 12/15/17 02:50 Dose: 3 ml Aspirin (Aspirin Chewable) 81 mg PO DAILY [facility] Last Admin: 12/14/17 21:03 Dose: 81 mg Atorvastatin Calcium (Lipitor) 10 mg PO DIN [facility] Last Admin: 12/14/17 21:02 Dose: 10 mg Calcium Acetate (Phoslo) 667 mg PO WM [facility] Last Admin: 12/14/17 18:47 Dose: Not Given Clopidogrel Bisulfate (Plavix) 75 mg PO DAILY [facility] Last Admin: 12/14/17 06:00 Dose: 75 mg Hydralazine HCl (Apresoline) 25 mg PO Q4 PRN PRN Reason: Other Hydralazine HCl (Apresoline) 10 mg IVP Q6 PRN PRN Reason: SBP >150 and/or DBP >90 Last Admin: 12/04/17 21:55 Dose: 10 mg Hydrocortisone Sodium Succinate (Solu-Cortef) 50 mg IVP Q12 [facility] Last Admin: 12/14/17 21:02 Dose: 50 mg Daptomycin 690 mg/ Sodium (Chloride) 100 mls @ 200 mls/hr IV QOTHERDAY [facility] Stop: 12/29/17 15:01 Last Admin: 12/14/17 21:58 Dose: 200 mls/hr Insulin Detemir (Levemir) 50 unit SC HS [facility] Last Admin: 12/14/17 21:00 Dose: Not Given Insulin Human Regular (Humulin R High) 0 units SC Q4 [facility] PRN Reason: Protocol Last Admin: 12/15/17 04:51 Dose: Not Given Levalbuterol HCl (Xopenex) 0.63 mg IH [id number] [id number] Last Admin: 12/05/17 08:01 Dose: 0.63 mg Levalbuterol HCl (Xopenex) 1.25 mg IH [id number] PRN PRN Reason: Shortness of Breath Last Admin: 12/06/17 05:35 Dose: 1.25 mg Metoprolol Tartrate (Lopressor) 5 mg IVP Q6H [facility] Last Admin: 12/10/17 09:25 Dose: Not Given Metoprolol Tartrate (Lopressor) 25 mg PO BID [facility] Midazolam HCl (Versed Inj) 4 mg IVP Q4 PRN PRN Reason: Agitation Last Admin: 12/07/17 17:44 Dose: 4 mg Multivitamins (Thera Tab) 1 tab PO DAILY [facility] Last Admin: 12/14/17 21:03 Dose: 1 tab Pantoprazole Sodium (Protonix Ec Tab) 40 mg PO ACB [facility] Last Admin: 12/14/17 17:29 Dose: Not Given Sodium Hypochlorite (Dakins Solution 0.5%) 0 ml TOP DAILY [facility] Last Admin: 12/12/17 10:05 Dose: Not Given - Labs Labs: 12/14/17 05:30 12/14/17 05:30 PT 12.7 SECONDS (9.4-12.5) H 12/08/17 08:30 INR 1.10 (0.93-1.08) H 12/08/17 08:30 APTT 30.7 Seconds (25.1-36.5) 12/08/17 08:30 - Constitutional Appears: Non-toxic, Chronically Ill - Head Exam Head Exam: NORMAL INSPECTION - ENT Exam ENT Exam: Mucous Membranes Moist - Neck Exam Neck Exam: absent: Meningismus - Respiratory Exam Respiratory Exam: Decreased Breath Sounds - Cardiovascular Exam Cardiovascular Exam: +S1, +S2 - GI/Abdominal Exam GI & Abdominal Exam: Soft. 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
--- NOTE | 2017-12-15 12:59 | PN ---
DATE: 12/15/2017 PULMONARY PROGRESS NOTE SUBJECTIVE: The patient is lying in bed comfortable. He denies any respiratory distress. He is awaiting transfer to intermediate care (step-down unit). He is markedly improved. There is no respiratory distress. PHYSICAL EXAMINATION: GENERAL: The patient is comfortable, resting, afebrile. VITAL SIGNS: Good vital signs. Blood pressure 130/70, O2 sat 98% on nasal cannula, respiratory rate 16. HEENT: Normocephalic, atraumatic. No JVD. No lymphadenopathy. No bruit. CARDIOVASCULAR: Regular rhythm. S1, S2 without murmur, gallop or rub. LUNGS: Reveals global decrease in breath sounds. There are no rales or rhonchi. There is no wheezing appreciated. ABDOMEN: Soft. Bowel sounds are normoactive without mass, guarding, rebound or organomegaly. EXTREMITIES: Revealed no focal findings. Edema is less. There is no Homans' sign. SKIN: Shows no rash or excoriation. NEUROLOGIC: No focal findings. Motor, sensory and coordination appears to be normal. LYMPHADENOPATHY: No lymph nodes are appreciated in the supraclavicular notch, cervical, inguinal and axillary areas are negative. LABORATORY DATA: A chest x-ray was done yesterday. There remains still small bilateral pulmonary vascular congestion. These infiltrates have improved since the last film, most likely consistent with pulmonary vascular congestion. CLINICAL IMPRESSION: 1. Status post respiratory failure. 2. Adult respiratory distress syndrome, in resolution. 3. Congestive heart failure. 4. Mild bronchospasm, improved. 5. Status post sepsis syndrome. 6. Mitral valve endocarditis. PLAN: Change IV corticosteroids to p.o. The case has been discussed with the attending, Dr. Reagan Mendez. The patient will be transferred to intermediate step-down (TCU). He will be followed by Dr. Dejesus until he is discharged. Continue to watch closely. Must follow x-ray to complete resolution. Continue antibiotic coverage as per ID. Corticosteroids had been decreased and can be decreased further in several days. Close followup is essential. Close follow up as required. Josue Newton MD
--- NOTE | 2017-12-15 15:35 | PN ---
DATE: SUBJECTIVE: I saw him resting comfortably in bed. He is in good spirits. He slept well. He is trying to eat a little bit too. He is in no pain. No chest pain or shortness of breath. No abdominal pain. He has oxygen nasal cannula on. He is on Apresoline, aspirin,Dakin solution, daptomycin, DuoNeb, insulin, Levemir, Lipitor, Lopressor which is on hold, PhosLo, Plavix, Protonix, Solu-Cortef 50 every 8 hours, Thera-Tabs, Tylenol, Versed, and Xopenex which I am hoping is helping him. PHYSICAL EXAMINATION: VITAL SIGNS: He has a 98.7 temperature, 93 pulse, 125/80 blood pressure, 19 respiratory rate, 92% O2 sat on 2 L nasal cannula. HEENT: His head is atraumatic, normocephalic. HEART: Regular rate. LUNGS: Decreased breath sounds, but clear. ABDOMEN: Soft, morbidly obese, nontender. EXTREMITIES: No edema. LABORATORY DATA: He has a 15.8 white count from the steroids, 10 hemoglobin, 30 hematocrit with a 210 platelets. He has 140 sodium, potassium 3.8. BUN 61, creatinine 3.2 continuing to come down. He might need dialysis, keeps on doing this. He got a 19 GFR. He has got 152 blood sugar, 8.8 calcium, 5.4 phosphorus. Total bili is 0.8, AST is 37, ALT is 44, alk phos 141, total protein 6.5. ASSESSMENT AND PLAN: He has been seen by Renal, Pulmonary, Cardio. He had multiple problems while he was here status post respiratory failure, acute respiratory distress syndrome resolving, mild bronchospasm, sepsis syndrome, renal insufficiency due to acute kidney injury almost. He had dialysis with acute renal failure. He is definitely improving now. The only issue with him is that he has a medicine of Solu-Cortef 50 mg every 12 hours and I need to talk to Renal, Pulmonary about the length of time he needs to be on that. No question, it is helping him. We will continue with aggressive treatment and care. Hoping to get him next week to [facility]. Reagan Mendez DO
[2017-12-15] MEDS: Insulin Detemir 100 units/ml Vial (Levemir) SC SCH (23:57)
[2017-12-16] MEDS: Albuterol-Ipratrop 3 mg / 0.5 (3 ml) UD IH SCH ×5 (01:07→19:15)
[2017-12-16] MEDS: Insulin Reg-HIGH-Coverage SC SCH ×5 (05:01→21:59)
[2017-12-16] MEDS ORDERED: Pantoprazole 40 mg Susp UD PO SCH (07:00)
[2017-12-16 07:38] LABS: HEMOGLOBIN 9.9 g/dL (14.0-18.0); MEAN CORPUSCULAR HEMOGLOBIN 28.7 pg (25.0-35.0); MEAN PLATELET VOLUME 9.5 fl (7.0-11.0); RBC 3.45 10^6/uL (3.5-6.1); RED CELL DISTRIBUTION WIDTH 14.7 % (11.5-14.5); WHITE BLOOD COUNT 21.3 10^3/ul (4.5-11.0)
[2017-12-16 07:59] LABS: ALB/GLOB RATIO 0.8 (1.1-1.8); ALBUMIN 2.8 g/dL (3.0-4.8); CALCIUM 9.2 mg/dL (8.4-10.5)
[2017-12-16] MEDS: Multivitamin Therapeutic Tab PO SCH (09:19)
--- NOTE | 2017-12-16 11:38 | CP.PCM.PN ---
Subjective - Date & Time of Evaluation Date of Evaluation: 12/16/17 Time of Evaluation: 09:55 - Subjective Subjective: Comfortable, not in distress, no diarrhea, no nausea. Objective - Vital Signs/Intake and Output Vital Signs (last 24 hours): Temp Pulse Resp BP Pulse Ox 98 F 78 20 125/69 96 12/16/17 06:00 12/16/17 06:00 12/16/17 06:00 12/16/17 06:00 12/16/17 06:00 Intake and Output: 12/16/17 12/16/17 06:59 18:59 Intake Total 240 Output Total 50 Balance 190 - Medications Medications: Current Medications Acetaminophen (Tylenol 325mg Tab) 650 mg PO Q6H PRN PRN Reason: Fever >100.4 F Albuterol/Ipratropium (Duoneb 3 Mg/0.5 Mg (3 Ml) Ud) 3 ml IH [id number] [facility] Last Admin: 12/16/17 01:07 Dose: 3 ml Aspirin (Aspirin Chewable) 81 mg PO DAILY [facility] Last Admin: 12/15/17 09:40 Dose: 81 mg Atorvastatin Calcium (Lipitor) 10 mg PO DIN [facility] Last Admin: 12/15/17 17:05 Dose: 10 mg Calcium Acetate (Phoslo) 667 mg PO WM [facility] Last Admin: 12/15/17 17:05 Dose: 667 mg Clopidogrel Bisulfate (Plavix) 75 mg PO DAILY [facility] Last Admin: 12/15/17 09:40 Dose: 75 mg Hydralazine HCl (Apresoline) 25 mg PO Q4 PRN PRN Reason: Other Hydralazine HCl (Apresoline) 10 mg IVP Q6 PRN PRN Reason: SBP >150 and/or DBP >90 Last Admin: 12/04/17 21:55 Dose: 10 mg Daptomycin 690 mg/ Sodium (Chloride) 100 mls @ 200 mls/hr IV QOTHERDAY [facility] Stop: 12/29/17 15:01 Last Admin: 12/14/17 21:58 Dose: 200 mls/hr Insulin Detemir (Levemir) 50 unit SC [facility] Last Admin: 12/15/17 23:57 Dose: Not Given Insulin Human Regular (Humulin R High) 0 units SC Q4 [facility] PRN Reason: Protocol Last Admin: 12/16/17 05:01 Dose: Not Given Levalbuterol HCl (Xopenex) 0.63 mg IH [id number] Last Admin: 12/05/17 08:01 Dose: 0.63 mg Levalbuterol HCl (Xopenex) 1.25 mg IH [id number] PRN PRN Reason: Shortness of Breath Last Admin: 12/06/17 05:35 Dose: 1.25 mg Methylprednisolone (Medrol) 12 mg PO BIDWM [facility] Last Admin: 12/15/17 17:04 Dose: 12 mg Metoprolol Tartrate (Lopressor) 5 mg IVP Q6H [facility] Last Admin: 12/10/17 09:25 Dose: Not Given Metoprolol Tartrate (Lopressor) 25 mg PO BID [facility] Midazolam HCl (Versed Inj) 4 mg IVP Q4 PRN PRN Reason: Agitation Last Admin: 12/07/17 17:44 Dose: 4 mg Multivitamins (Thera Tab) 1 tab PO DAILY [facility] Last Admin: 12/15/17 09:40 Dose: 1 tab Pantoprazole Sodium (Protonix Susp) 40 mg PO 0600 [facility] Sodium Hypochlorite (Dakins Solution 0.5%) 0 ml TOP DAILY [facility] Last Admin: 12/12/17 10:05 Dose: Not Given - Labs Labs: 12/15/17 07:00 12/15/17 06:30 PT 12.7 SECONDS (9.4-12.5) H 12/08/17 08:30 INR 1.10 (0.93-1.08) H 12/08/17 08:30 APTT 30.7 Seconds (25.1-36.5) 12/08/17 08:30 - Constitutional Appears: Non-toxic, Chronically Ill - Head Exam Head Exam: NORMAL INSPECTION - Respiratory Exam Respiratory Exam: Decreased Breath Sounds - Cardiovascular Exam Cardiovascular Exam: +S1, +S2 - GI/Abdominal Exam GI & Abdominal Exam: Soft. absent: Tenderness - Extremities Exam Additional comments: right foot with dressings in place Assessment and Plan - Assessment and Plan (Free Text) Plan: Assessment severe sepsis S/P ventilator-dependent respiratory failure in this patient with ARDS with probable new onset HCAP on top of methicillin-sensitive Staph aureus bacteremia, with mitral valve endocarditis and right foot severe skin and skin structure infection (with MRSA), S/P I and D acute on chronic renal failure, currently on dialysis history of right hallux infected ulcer (with gangrene), grew Serratia S/P 1st ray amputation DM HTN dyslipidemia psoriasis history of wounds in the foot history of rib fractures due to trauma Plan continue Daptomycin - patient will need at least 4-6 weeks of antibiotics from first negative blood cx with weekly ESR, CRP, CBC, CMP, CPK levels (day 25 of 42 ) S/P 8 days of Zyvox and Merrem day 8 - patient has done well in terms of pneumonia will continue to monitor clinically overall prognosis is guarded at best
[2017-12-16] MEDS: Dakin's Topical 0.5%-Full Strength (480 ml) TOP SCH (12:15)
--- NOTE | 2017-12-16 12:20 | CP.PCM.PN ---
<Chaitanya Dumont - Last Filed: 12/16/17 12:16> Subjective - Date & Time of Evaluation Date of Evaluation: 12/16/17 Time of Evaluation: 12:16 - Subjective Subjective: Podiatry Progress Note - Dr. Baron/Luciana 72 y/o male seen and examined at bedside this morning s/p debridement of right foot diabetic ulceration with sinus tract and underlying OM. Patient resting comfortably, NAD. Patient is AAOx3. Offers no complains to right foot. Dressing to RLE clean/dry/intact with no strikethrough noted. Multipodus boots present bilaterally. Denies N/V/F/D/C. Objective - Vital Signs/Intake and Output Vital Signs (last 24 hours): Temp Pulse Resp BP Pulse Ox 98 F 78 20 125/69 96 12/16/17 06:00 12/16/17 06:00 12/16/17 06:00 12/16/17 06:00 12/16/17 06:00 Intake and Output: 12/16/17 12/16/17 06:59 18:59 Intake Total 240 Output Total 50 Balance 190 - Medications Medications: Current Medications Acetaminophen (Tylenol 325mg Tab) 650 mg PO Q6H PRN PRN Reason: Fever >100.4 F Albuterol/Ipratropium (Duoneb 3 Mg/0.5 Mg (3 Ml) Ud) 3 ml IH [id number] [facility] Last Admin: 12/16/17 07:46 Dose: 3 ml Aspirin (Aspirin Chewable) 81 mg PO DAILY [facility] Last Admin: 12/16/17 09:19 Dose: 81 mg Atorvastatin Calcium (Lipitor) 10 mg PO DIN [facility] Last Admin: 12/15/17 17:05 Dose: 10 mg Calcium Acetate (Phoslo) 667 mg PO WM [facility] Last Admin: 12/16/17 11:48 Dose: 667 mg Clopidogrel Bisulfate (Plavix) 75 mg PO DAILY [facility] Last Admin: 12/16/17 09:19 Dose: 75 mg Hydralazine HCl (Apresoline) 25 mg PO Q4 PRN PRN Reason: Other Hydralazine HCl (Apresoline) 10 mg IVP Q6 PRN PRN Reason: SBP >150 and/or DBP >90 Last Admin: 12/04/17 21:55 Dose: 10 mg Daptomycin 690 mg/ Sodium (Chloride) 100 mls @ 200 mls/hr IV QOTHERDAY [facility] Stop: 12/29/17 15:01 Last Admin: 12/16/17 09:27 Dose: 200 mls/hr Insulin Detemir (Levemir) 50 unit SC HS [facility] Last Admin: 12/15/17 23:57 Dose: Not Given Insulin Human Regular (Humulin R High) 0 units SC Q4 [facility] PRN Reason: Protocol Last Admin: 12/16/17 11:48 Dose: 4 units Levalbuterol HCl (Xopenex) 0.63 mg IH [id number] [facility] Last Admin: 12/05/17 08:01 Dose: 0.63 mg Levalbuterol HCl (Xopenex) 1.25 mg IH [id number] PRN PRN Reason: Shortness of Breath Last Admin: 12/06/17 05:35 Dose: 1.25 mg Methylprednisolone (Medrol) 12 mg PO BIDWM [facility] Last Admin: 12/16/17 08:05 Dose: 12 mg Metoprolol Tartrate (Lopressor) 5 mg IVP Q6H [facility] Last Admin: 12/10/17 09:25 Dose: Not Given Metoprolol Tartrate (Lopressor) 25 mg PO BID [facility] Midazolam HCl (Versed Inj) 4 mg IVP Q4 PRN PRN Reason: Agitation Last Admin: 12/07/17 17:44 Dose: 4 mg Multivitamins (Thera Tab) 1 tab PO DAILY [facility] Last Admin: 12/16/17 09:19 Dose: 1 tab Pantoprazole Sodium (Protonix Susp) 40 mg PO 0600 [facility] Sodium Hypochlorite (Dakins Solution 0.5%) 0 ml TOP DAILY [facility] Last Admin: 12/16/17 12:15 Dose: Not Given - Labs Labs: 12/16/17 07:31 12/16/17 07:31 PT 12.7 SECONDS (9.4-12.5) H 12/08/17 08:30 INR 1.10 (0.93-1.08) H 12/08/17 08:30 APTT 30.7 Seconds (25.1-36.5) 12/08/17 08:30 - Constitutional Appears: Well, Non-toxic, No Acute Distress - Extremities Exam Additional comments: RLE focused exam: Vasc: DP and PT non-palpable, temperature gradient is warm to cool from proximal to distal, Cap refill time: < 3 seconds to all digits, moderate non- pitting edema noted to the right forefoot Derm: Two surgical incisions: Mild sanguinous drainage noted to dressing. #1 longitudinal surgical incision noted to the plantar aspect of the sub metatarsal 2 measuring approximately 4 x .3 cm and #2 surgical incision measuring approximately 2 cm x .3 cm on the dorsum of the foot at the level of the 2nd metatarsal head. Incisions connect forming a tunnel through the forefoot however are granulating inwards. Wound base is 100% granular with no drainage when expressed, no fluctuance noted, no purulence, no active bleeding, no malodor, no tunneling but tracking present to the plantar surgical incision from the dorsal incision. (+) probe to bone down to both 2nd and 3rd metatarsals. no clinical suspicion of active infection at this time. Neuro: gross and protective sensation diminished Ortho: no pain with palpation to ulceration site, previous healed hallux amputation - Neurological Exam Neurological Exam: Alert, Awake, Oriented x3 - Psychiatric Exam Psychiatric exam: Normal Affect, Normal Mood Assessment and Plan - Assessment and Plan (Free Text) Assessment: 72 y/o male 21 days s/p debridement of right foot diabetic ulceration with sinus tract Plan: Patient seen and evaluated at bedside Discussed in details with attending Dr. Baron Afebrile, WBC increasing 21.3 MRI of foot reviewed: possible OM of the 2nd and 3rd metatarsals and proximal phalanges Continue local wound care - Dakin's cleanse, 1/4" iodoform packing, DSD -Right foot improving Continue multipodus boots at all times while in bed At this time, TMA is clinically indicated due to osteomyelitis of 2nd and 3rd mets and proximal phalanges with (+) probe to bone -Will hold off on surgical intervention as patient is not a stable candidate at this time Podiatry will continue to follow while patient in house <Eileen Baron - Last Filed: 12/17/17 13:45> Objective - Vital Signs/Intake and Output Vital Signs (last 24 hours): Temp Pulse Resp BP Pulse Ox 98.2 F 87 20 133/72 93 L 12/17/17 12:00 12/17/17 12:00 12/17/17 12:00 12/17/17 12:00 12/17/17 06:00 Intake and Output: 12/17/17 12/17/17 06:59 18:59 Intake Total 120 Output Total 500 Balance 120 -500 - Medications Medications: Current Medications Acetaminophen (Tylenol 325mg Tab) 650 mg PO Q6H PRN PRN Reason: Fever >100.4 F Albuterol/Ipratropium (Duoneb 3 Mg/0.5 Mg (3 Ml) Ud) 3 ml IH [id number] [facility] Last Admin: 12/17/17 07:53 Dose: 3 ml Aspirin (Aspirin Chewable) 81 mg PO DAILY [facility] Last Admin: 12/17/17 10:19 Dose: 81 mg Atorvastatin Calcium (Lipitor) 10 mg PO DIN [facility] Last Admin: 12/16/17 17:06 Dose: 10 mg Calcium Acetate (Phoslo) 667 mg PO WM [facility] Last Admin: 12/17/17 10:19 Dose: 667 mg Hydralazine HCl (Apresoline) 25 mg PO Q4 PRN PRN Reason: Other Hydralazine HCl (Apresoline) 10 mg IVP Q6 PRN PRN Reason: SBP >150 and/or DBP >90 Last Admin: 12/17/17 07:00 Dose: 10 mg Daptomycin 690 mg/ Sodium (Chloride) 100 mls @ 200 mls/hr IV QOTHERDAY [facility] Stop: 12/29/17 15:01 Last Admin: 12/16/17 09:27 Dose: 200 mls/hr Insulin Detemir (Levemir) 50 unit SC [facility] Last Admin: 12/17/17 00:07 Dose: Not Given Insulin Human Regular (Humulin R High) 0 units SC Q4 GERRY PRN Reason: Protocol Last Admin: 12/17/17 13:35 Dose: 4 units Levalbuterol HCl (Xopenex) 0.63 mg IH [id number] [facility] Last Admin: 12/05/17 08:01 Dose: 0.63 mg Levalbuterol HCl (Xopenex) 1.25 mg IH [id number] PRN PRN Reason: Shortness of Breath Last Admin: 12/06/17 05:35 Dose: 1.25 mg Methylprednisolone (Medrol) 12 mg PO BIDWM [facility] Last Admin: 12/17/17 10:20 Dose: 12 mg Metoprolol Tartrate (Lopressor) 5 mg IVP Q6H [facility] Last Admin: 12/10/17 09:25 Dose: Not Given Metoprolol Tartrate (Lopressor) 25 mg PO BID [facility] Midazolam HCl (Versed Inj) 4 mg IVP Q4 PRN PRN Reason: Agitation Last Admin: 12/07/17 17:44 Dose: 4 mg Multivitamins (Thera Tab) 1 tab PO DAILY [facility] Last Admin: 12/17/17 10:19 Dose: 1 tab Pantoprazole Sodium (Protonix Susp) 40 mg PO 0600 [facility] Last Admin: 12/17/17 05:12 Dose: 40 mg Sodium Hypochlorite (Dakins Solution 0.5%) 0 ml TOP DAILY [facility] Last Admin: 12/17/17 11:47 Dose: Not Given - Labs Labs: 12/17/17 05:50 12/17/17 05:50 PT 12.7 SECONDS (9.4-12.5) H 12/08/17 08:30 INR 1.10 (0.93-1.08) H 12/08/17 08:30 APTT 30.7 Seconds (25.1-36.5) 12/08/17 08:30 Attending/Attestation - Attestation I have personally seen and examined this patient.: Yes I have fully participated in the care of the patient.: Yes I have reviewed all pertinent clinical information, including history, physical exam and plan: Yes
--- NOTE | 2017-12-16 13:29 | PN ---
DATE: SUSUBJECTIVE: I saw Toya resting comfortably in bed. He is very easily arousable. He is talking quite well. He is in no pain. He is in good spirits. He has no issues at this time. No chest pain. No shortness of breath or abdominal pain. He is trying to eat well. PHYSICAL EXAMINATION: VITAL SIGNS; 98 temperature, 78 pulse, 125/69 blood pressure, 20 respiratory rate, 96% O2 sat on nasal cannula. HEENT: Head: Atraumatic, normocephalic. HEART: Regular rate. LUNGS: Decreased breath sounds, but clear. ABDOMEN: Soft, morbidly obese, nontender. Positive bowel sounds. No guarding. No rebound. No CVA tenderness. EXTREMITIES: The foot is bandaged on the right. He has a bunch of different issues going on, acute respiratory failure. He is intubated. He had ARBs. He had endocarditis of the mitral valve. He needs to have 6 weeks more of IV antibiotics. We are hoping that tomorrow he can get there. MEDICATIONS: He is currently on Apresoline, aspirin, Dakin solution, daptomycin, DuoNebs, insulin, Levemir, Lipitor, Lopressor, Medrol, PhosLo, Plavix, Protonix, Thera-Tabs, Tylenol, Versed, Xopenex and we are hoping he continues stability at the [facility] for physical therapy. LABORATORY DATA: His white count went to 21.3, he could be in his steroids, 9.9 hemoglobin, 30 hematocrit, 191 platelets. He has 141 sodium, potassium 3.6, BUN 39, creatinine 3.8, that went up a little bit. He is getting dialysis every now and then. GFR is 16, sugar is 173, calcium is 9.2, total bili is 0.9, AST is 44, ALT is 44, alkaline phosphatase is 140. He was also having end-stage renal disease on top of everything else for the UTI. He is being seen by multiple doctors, Infectious Disease, Pulmonary, Podiatry. He had a chest x-ray yesterday, which showed mild vascular congestion. We will continue aggressive treatment and care. Hopefully, tomorrow we can get him to [facility] to continue about 6 weeks of IV antibiotics. We will check his labs tomorrow. Reagan Mendez DO [facility] # [id number]
[2017-12-17] MEDS: Insulin Reg-HIGH-Coverage SC SCH ×4 (00:06→13:35)
[2017-12-17] MEDS: Insulin Detemir 100 units/ml Vial (Levemir) SC SCH (00:07)
[2017-12-17] MEDS: Albuterol-Ipratrop 3 mg / 0.5 (3 ml) UD IH SCH ×3 (02:03→14:28)
[2017-12-17 06:10] LABS: HEMOGLOBIN 9.6 g/dL (14.0-18.0); MEAN CELL VOLUME 87.2 fl (80.0-105.0); MEAN CORPUSCULAR HEMOGLOBIN 28.5 pg (25.0-35.0); MEAN CORPUSCULAR HGB CONC 32.7 g/dl (31.0-37.0); MEAN PLATELET VOLUME 9.9 fl (7.0-11.0); RBC 3.37 10^6/uL (3.5-6.1); RED CELL DISTRIBUTION WIDTH 14.7 % (11.5-14.5)
[2017-12-17 06:15] LABS: WHITE BLOOD COUNT 25.2 10^3/ul (4.5-11.0)
[2017-12-17 06:24] VITALS: RESP 20; O2SAT 93
[2017-12-17 06:34] LABS: ALB/GLOB RATIO 0.7 (1.1-1.8); ALBUMIN 2.7 g/dL (3.0-4.8); CALCIUM 9.8 mg/dL (8.4-10.5)
--- NOTE | 2017-12-17 07:40 | PN ---
DATE: 12/17/2017 PULMONARY NOTE SUBJECTIVE: The patient appears very comfortable this morning. He is not short of breath at rest. PHYSICAL EXAMINATION: VITAL SIGNS: Temperature 97.8, pulse is 74, respirations 18, blood pressure 152/79. Oxygen saturation on nasal cannula is 93%. HEENT: Normocephalic, atraumatic. NECK: No JVD. CARDIOVASCULAR: Systolic ejection murmur at the lower left sternal border. No S3 gallop. LUNGS: Decreased breath sounds at the bases with minimal crackles. Very minimal rhonchi. No wheezing. EXTREMITIES: The right foot remains wrapped. There is much less edema in his lower extremities. There is no cyanosis or clubbing. Calves are nontender to palpation. GI: Abdomen is soft, nontender and nondistended. Bowel sounds are positive. SKIN: No acute rash. NEUROLOGIC: Exam limited at the present time. IMPRESSION: 1. Status post respiratory failure. 2. Acute respiratory distress syndrome-resolving. 3. Mild bronchospasm. 4. Sepsis syndrome. 5. Renal insufficiency. 6. Mild anemia. 7. Right foot infection. 8. Mitral valve endocarditis. PLAN: The patient appears very comfortable this morning. He is awake and alert. He is not short of breath. He does state to feeling much better overall. On physical exam, there is no significant bronchospasm noted. In addition, there is no significant alveolar-arterial gradient. I will continue with the current nebulizer treatments and oral steroids (changed over the weekend) for now. I would continue with the antibiotic coverage as per Infectious Disease. Input by Dr. Hernández is noted. The temperatures have resolved. However, there is an increase in the leukocytosis. I would also continue with the Cardiology and Renal evaluations. Inputs are noted. Clinical status of the patient is significantly improved-compared to last week. However, again, his future status/prognosis remains very guarded. I will discuss the above with the attending physician. Baljinder Dejesus MD [email or web address]
[2017-12-17] MEDS: Multivitamin Therapeutic Tab PO SCH (10:19)
--- NOTE | 2017-12-17 10:49 | CP.PCM.PN ---
Subjective - Date & Time of Evaluation Date of Evaluation: 12/17/17 Time of Evaluation: 08:35 - Subjective Subjective: Comfortable, no fevers, not in distress, improved pain in the right foot, no nausea or diarrhea. Objective - Vital Signs/Intake and Output Vital Signs (last 24 hours): Temp Pulse Resp BP Pulse Ox 97.8 F 74 20 152/79 H 93 L 12/17/17 06:00 12/17/17 06:00 12/17/17 06:00 12/17/17 06:00 12/17/17 06:00 Intake and Output: 12/16/17 12/17/17 18:59 06:59 Intake Total 420 120 Output Total 0 Balance 420 120 - Medications Medications: Current Medications Acetaminophen (Tylenol 325mg Tab) 650 mg PO Q6H PRN PRN Reason: Fever >100.4 F Albuterol/Ipratropium (Duoneb 3 Mg/0.5 Mg (3 Ml) Ud) 3 ml IH [id number] [facility] Last Admin: 12/17/17 02:03 Dose: 3 ml Aspirin (Aspirin Chewable) 81 mg PO DAILY [facility] Last Admin: 12/16/17 09:19 Dose: 81 mg Atorvastatin Calcium (Lipitor) 10 mg PO DIN [facility] Last Admin: 12/16/17 17:06 Dose: 10 mg Calcium Acetate (Phoslo) 667 mg PO WM [facility] Last Admin: 12/16/17 17:06 Dose: 667 mg Clopidogrel Bisulfate (Plavix) 75 mg PO DAILY [facility] Last Admin: 12/16/17 09:19 Dose: 75 mg Hydralazine HCl (Apresoline) 25 mg PO Q4 PRN PRN Reason: Other Hydralazine HCl (Apresoline) 10 mg IVP Q6 PRN PRN Reason: SBP >150 and/or DBP >90 Last Admin: 12/04/17 21:55 Dose: 10 mg Daptomycin 690 mg/ Sodium (Chloride) 100 mls @ 200 mls/hr IV QOTHERDAY [facility] Stop: 12/29/17 15:01 Last Admin: 12/16/17 09:27 Dose: 200 mls/hr Insulin Detemir (Levemir) 50 unit SC [facility] Last Admin: 12/17/17 00:07 Dose: Not Given Insulin Human Regular (Humulin R High) 0 units SC Q4 GERRY PRN Reason: Protocol Last Admin: 12/17/17 04:05 Dose: Not Given Levalbuterol HCl (Xopenex) 0.63 mg IH [id number] [facility] Last Admin: 12/05/17 08:01 Dose: 0.63 mg Levalbuterol HCl (Xopenex) 1.25 mg IH [id number] PRN PRN Reason: Shortness of Breath Last Admin: 12/06/17 05:35 Dose: 1.25 mg Methylprednisolone (Medrol) 12 mg PO BIDWM [facility] Last Admin: 12/16/17 17:05 Dose: 12 mg Metoprolol Tartrate (Lopressor) 5 mg IVP Q6H [facility] Last Admin: 12/10/17 09:25 Dose: Not Given Metoprolol Tartrate (Lopressor) 25 mg PO BID [facility] Midazolam HCl (Versed Inj) 4 mg IVP Q4 PRN PRN Reason: Agitation Last Admin: 12/07/17 17:44 Dose: 4 mg Multivitamins (Thera Tab) 1 tab PO DAILY [facility] Last Admin: 12/16/17 09:19 Dose: 1 tab Pantoprazole Sodium (Protonix Susp) 40 mg PO 0600 [facility] Last Admin: 12/17/17 05:12 Dose: 40 mg Sodium Hypochlorite (Dakins Solution 0.5%) 0 ml TOP DAILY [facility] Last Admin: 12/16/17 12:15 Dose: Not Given - Labs Labs: 12/17/17 05:50 12/16/17 07:31 PT 12.7 SECONDS (9.4-12.5) H 12/08/17 08:30 INR 1.10 (0.93-1.08) H 12/08/17 08:30 APTT 30.7 Seconds (25.1-36.5) 12/08/17 08:30 - Constitutional Appears: Chronically Ill - Head Exam Head Exam: NORMAL INSPECTION - ENT Exam ENT Exam: Mucous Membranes Moist - Respiratory Exam Respiratory Exam: Decreased Breath Sounds - Cardiovascular Exam Cardiovascular Exam: +S1, +S2 - GI/Abdominal Exam GI & Abdominal Exam: Soft. 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
[2017-12-17] MEDS: Dakin's Topical 0.5%-Full Strength (480 ml) TOP SCH (11:47)
[2017-12-17 12:17] VITALS: BP 133/72; PULSE 87; TEMP 98.2
--- NOTE | 2017-12-17 13:11 | PN ---
DATE: 12/17/2017 CARDIOLOGY FOLLOWUP SUBJECTIVE: The patient is in a chair, comfortable without shortness of breath. PHYSICAL EXAMINATION: VITAL SIGNS: Blood pressure 133/72, the heart rates in the 80s. NECK: Negative JVD. LUNGS: Without rales. HEART: Reveals S1, S2. EXTREMITIES: Bandage in the lower extremity. LABORATORY DATA: White count is 25,000, hemoglobin is 9.6. Chemistries: Creatinine is 3.4, glucose is 205. IMPRESSION: 1. Endocarditis. 2. Peripheral vascular disease. 3. End-stage renal disease. 4. Sepsis. 5. Recent non-ST elevation myocardial infarction. Given these findings, the patient is scheduled for transfer to subacute rehab today. I have discussed with the family about repeating the echocardiogram in a month after his antibiotics are finished. Riccardo Whitehead MD
--- NOTE | 2017-12-17 14:19 | CP.PCM.PN ---
Subjective - Date & Time of Evaluation Date of Evaluation: 12/17/17 Time of Evaluation: 14:14 - Subjective Subjective: Podiatry Progress Note - Dr. Baron/Luciana 72 y/o male seen and examined at bedside this morning s/p debridement of right foot diabetic ulceration with sinus tract and underlying OM. Patient OOB in chair, daughter present at bedside. No acute events overnight. No complaints to right foot. Dressing clean/dry/intact with multipodus boot present to E. Patient's daughter states he will be discharged to [facility] this afternoon, and will be receiving continued Daptomycin.Offers no other complaints. Denies N/V/F/D/C/ SOB/GOMEZ/dizziness. Objective - Vital Signs/Intake and Output Vital Signs (last 24 hours): Temp Pulse Resp BP Pulse Ox 98.2 F 87 20 133/72 93 L 12/17/17 12:00 12/17/17 12:00 12/17/17 12:00 12/17/17 12:00 12/17/17 06:00 Intake and Output: 12/17/17 12/17/17 06:59 18:59 Intake Total 120 Output Total 500 Balance 120 -500 - Medications Medications: Current Medications Acetaminophen (Tylenol 325mg Tab) 650 mg PO Q6H PRN PRN Reason: Fever >100.4 F Albuterol/Ipratropium (Duoneb 3 Mg/0.5 Mg (3 Ml) Ud) 3 ml IH [id number] [facility] Last Admin: 12/17/17 07:53 Dose: 3 ml Aspirin (Aspirin Chewable) 81 mg PO DAILY [facility] Last Admin: 12/17/17 10:19 Dose: 81 mg Atorvastatin Calcium (Lipitor) 10 mg PO DIN [facility] Last Admin: 12/16/17 17:06 Dose: 10 mg Calcium Acetate (Phoslo) 667 mg PO WM [facility] Last Admin: 12/17/17 13:59 Dose: 667 mg Hydralazine HCl (Apresoline) 25 mg PO Q4 PRN PRN Reason: Other Hydralazine HCl (Apresoline) 10 mg IVP Q6 PRN PRN Reason: SBP >150 and/or DBP >90 Last Admin: 12/17/17 07:00 Dose: 10 mg Daptomycin 690 mg/ Sodium (Chloride) 100 mls @ 200 mls/hr IV QOTHERDAY [facility] Stop: 12/29/17 15:01 Last Admin: 12/16/17 09:27 Dose: 200 mls/hr Insulin Detemir (Levemir) 50 unit SC HS [facility] Last Admin: 12/17/17 00:07 Dose: Not Given Insulin Human Regular (Humulin R High) 0 units SC Q4 [facility] PRN Reason: Protocol Last Admin: 12/17/17 13:35 Dose: 4 units Levalbuterol HCl (Xopenex) 0.63 mg IH [id number] [facility] Last Admin: 12/05/17 08:01 Dose: 0.63 mg Levalbuterol HCl (Xopenex) 1.25 mg IH [id number] PRN PRN Reason: Shortness of Breath Last Admin: 12/06/17 05:35 Dose: 1.25 mg Methylprednisolone (Medrol) 12 mg PO BIDWM [facility] Last Admin: 12/17/17 10:20 Dose: 12 mg Metoprolol Tartrate (Lopressor) 5 mg IVP Q6H [facility] Last Admin: 12/10/17 09:25 Dose: Not Given Metoprolol Tartrate (Lopressor) 25 mg PO BID [facility] Midazolam HCl (Versed Inj) 4 mg IVP Q4 PRN PRN Reason: Agitation Last Admin: 12/07/17 17:44 Dose: 4 mg Multivitamins (Thera Tab) 1 tab PO DAILY [facility] Last Admin: 12/17/17 10:19 Dose: 1 tab Pantoprazole Sodium (Protonix Susp) 40 mg PO 0600 [facility] Last Admin: 12/17/17 05:12 Dose: 40 mg Sodium Hypochlorite (Dakins Solution 0.5%) 0 ml TOP DAILY [facility] Last Admin: 12/17/17 11:47 Dose: Not Given - Labs Labs: 12/17/17 05:50 12/17/17 05:50 PT 12.7 SECONDS (9.4-12.5) H 12/08/17 08:30 INR 1.10 (0.93-1.08) H 12/08/17 08:30 APTT 30.7 Seconds (25.1-36.5) 12/08/17 08:30 - Constitutional Appears: Well, Non-toxic, No Acute Distress - Extremities Exam Additional comments: RLE focused exam: Vasc: DP and PT non-palpable, temperature gradient is warm to cool from proximal to distal, Cap refill time: < 3 seconds to all digits, moderate non- pitting edema noted to the right forefoot Derm: Two surgical incisions: #1 longitudinal surgical incision noted to the plantar aspect of the sub metatarsal 2 measuring approximately 4 x .3 cm and #2 surgical incision measuring approximately 2 cm x .3 cm on the dorsum of the foot at the level of the 2nd metatarsal head. Incisions connect forming a tunnel through the forefoot however are granulating inwards. Wound base is 100% granular with no drainage when expressed, no fluctuance noted, no purulence, no active bleeding, no malodor, no tunneling but tracking present to the plantar surgical incision from the dorsal incision. (+) probe to bone down to both 2nd and 3rd metatarsals. no clinical suspicion of active infection at this time. Neuro: gross and protective sensation diminished Ortho: no pain with palpation to ulceration site, previous healed hallux amputation - Neurological Exam Neurological Exam: Alert, Awake, Oriented x3 - Psychiatric Exam Psychiatric exam: Normal Affect, Normal Mood Assessment and Plan - Assessment and Plan (Free Text) Assessment: 72 y/o male 22 days s/p debridement of right foot diabetic ulceration with sinus tract Plan: Patient seen and evaluated alongside attending, Dr. Baron Afebrile, WBC increasing 25.2 (foot as source unlikely) MRI of foot reviewed: possible OM of the 2nd and 3rd metatarsals and proximal phalanges Continue local wound care - Dakin's cleanse, 1/4" iodoform packing, DSD -Right foot improving Continue multipodus boots at all times while in bed At this time, TMA is clinically indicated due to osteomyelitis of 2nd and 3rd mets and proximal phalanges with (+) probe to bone -Patient and daughter refusing, requesting a second opinion Continue local wound care ([facility]NA NEEDED) -QD Dressing changes: discontinue Dakin's and use saline flush, 1/4" iodoform packing placed in plantar incision only. On dorsal incision apply Silvadene and dress right foot with DSD Advised patient to follow up in the wound care center within 1 week of discharge Podiatry will continue to follow
--- NOTE | 2017-12-17 14:43 | CP.PCM.PN ---
Subjective - Date & Time of Evaluation Date of Evaluation: 12/17/17 Time of Evaluation: 14:40 - Subjective Subjective: Nephrology Consultation Note: Assessment: stable acute hypoxic respi failure with fluid overload/CHF pattern/pulm edema And ARDS status post right heart: IMPROVED oligoanuric Acute Kidney Injury (N17.9) likely due to sepsis, wound infection>> leading to ATN, possible AIN due to Abx/infection But urine eos negative: Improving DM, HTN (I12.0) active cigar smoker, obesity toe osteomyelitis with sepsis, Mitral valve infective endocarditis Plan renal function stable since last HD. serum Cr platueing. urine output reported to be better. will hold further dialysis and continue with close monitoring for renal recovery. maintain hemodynamics stable. hold ACEI/ARB due to ROHINI. hold [place] Monitor Input/Output, daily weights and renal function with basic metabolic panel will add phos binders s/p Aranesp 60 g 12/12/17, last Hb 9.6 s/p coronary angiogram 12/14/17 Dose meds/antibiotics for reduced GFR status. Avoid fleets enema/magnesium based laxatives. Avoid nephrotoxins/NSAIDs/ iodinated contrast (unless needed emergently) Glycemic control Further work up/management as per primary team pt planned for d/c to [facility] today. advised to check BMP q 2 day and fax results to my office. also dw daughter for f/up in office 1 week. if no need for dialysis by then, remove dialysis catheter at that time. Thanks for allowing me to participate in care of your patient. Please call if any Qs. d/w team Dr Caden Muller Office: [phone] HPI: Pt is a 72 M with hx of diabetes Mellitus (9 years), hypertension (years) , active cigar smoker, obesity and Rt foot infection, recent ROHINI (peaked cr 2.1 ) presented with complaints of Rt foot wound infection. renal consult for ROHINI eval. his cr 1.1 in 2017 and at d/c last hospitalization Denies OTC/herbal meds or NSAIDs No recent iodinated contrast exposure. episodes of low BP noted. ROS: Patient is feeling better. denies SOB/chest pain. Urine output better Physical Examination: General Appearance:. obese. better appearing. comfortable Vitals reviewed and noted as below Head; Atraumatic, normocephalic ENT: extubated EYES: Pupils are equal, round and reactive to light accommodation. Sclera is anicteric. Neck; supple no lymphadenopathy, no thyromegaly or bruit Lungs: normal respiratory rate/effort. Breath sounds bilateral clear anteriorly Heart: Normal rate. s1s2 normal. No rub or gallop. Extremities: no edema. No varicose veins. Rt foot dressed. Neurological: Patient is AO 3 no focal deficit Skin: Warm and dry. Normal turgor. chronic psoriasis rash. Palpitation: Normal elasticity for age. Abdomen: Abdomen is soft. Bowel sounds +. There is no abdominal tenderness, no guarding/rigidity no organomegaly Psych: normal insight. normal affect MSK: no joint tenderness or swelling. Digits and nails normal, no deformity : kidney or bladder not palpable. access: Rt IJ permacath Labs/imaging reviewed. Past medical history, past surgical history, family history, social history, allergy reviewed and noted as below Family hx: no hx of CKD. Rest non-contributory workup: renal SONO: WNL UA large blood Objective - Vital Signs/Intake and Output Vital Signs (last 24 hours): Temp Pulse Resp BP Pulse Ox 98.2 F 87 20 133/72 93 L 12/17/17 12:00 12/17/17 12:00 12/17/17 12:00 12/17/17 12:00 12/17/17 06:00 Intake and Output: 12/17/17 12/17/17 06:59 18:59 Intake Total 120 Output Total 500 Balance 120 -500 - Medications Medications: Current Medications Acetaminophen (Tylenol 325mg Tab) 650 mg PO Q6H PRN PRN Reason: Fever >100.4 F Albuterol/Ipratropium (Duoneb 3 Mg/0.5 Mg (3 Ml) Ud) 3 ml IH [id number] [facility] Last Admin: 12/17/17 14:28 Dose: 3 ml Aspirin (Aspirin Chewable) 81 mg PO DAILY [facility] Last Admin: 12/17/17 10:19 Dose: 81 mg Atorvastatin Calcium (Lipitor) 10 mg PO DIN [facility] Last Admin: 12/16/17 17:06 Dose: 10 mg Calcium Acetate (Phoslo) 667 mg PO WM [facility] Last Admin: 12/17/17 13:59 Dose: 667 mg Hydralazine HCl (Apresoline) 25 mg PO Q4 PRN PRN Reason: Other Hydralazine HCl (Apresoline) 10 mg IVP Q6 PRN PRN Reason: SBP >150 and/or DBP >90 Last Admin: 12/17/17 07:00 Dose: 10 mg Daptomycin 690 mg/ Sodium (Chloride) 100 mls @ 200 mls/hr IV QOTHERDAY [facility] Stop: 12/29/17 15:01 Last Admin: 12/16/17 09:27 Dose: 200 mls/hr Insulin Detemir (Levemir) 50 unit SC HS [facility] Last Admin: 12/17/17 00:07 Dose: Not Given Insulin Human Regular (Humulin R High) 0 units SC Q4 GERRY PRN Reason: Protocol Last Admin: 12/17/17 13:35 Dose: 4 units Levalbuterol HCl (Xopenex) 0.63 mg IH [id number] [facility] Last Admin: 12/05/17 08:01 Dose: 0.63 mg Levalbuterol HCl (Xopenex) 1.25 mg IH [id number] PRN PRN Reason: Shortness of Breath Last Admin: 12/06/17 05:35 Dose: 1.25 mg Methylprednisolone (Medrol) 12 mg PO BIDWM [facility] Last Admin: 12/17/17 10:20 Dose: 12 mg Metoprolol Tartrate (Lopressor) 5 mg IVP Q6H [facility] Last Admin: 12/10/17 09:25 Dose: Not Given Metoprolol Tartrate (Lopressor) 25 mg PO BID [facility] Midazolam HCl (Versed Inj) 4 mg IVP Q4 PRN PRN Reason: Agitation Last Admin: 12/07/17 17:44 Dose: 4 mg Multivitamins (Thera Tab) 1 tab PO DAILY [facility] Last Admin: 12/17/17 10:19 Dose: 1 tab Pantoprazole Sodium (Protonix Susp) 40 mg PO 0600 [facility] Last Admin: 12/17/17 05:12 Dose: 40 mg Sodium Hypochlorite (Dakins Solution 0.5%) 0 ml TOP DAILY [facility] Last Admin: 12/17/17 11:47 Dose: Not Given - Labs Labs: 12/17/17 05:50 12/17/17 05:50 PT 12.7 SECONDS (9.4-12.5) H 12/08/17 08:30 INR 1.10 (0.93-1.08) H 12/08/17 08:30 APTT 30.7 Seconds (25.1-36.5) 12/08/17 08:30
--- NOTE | 2017-12-17 20:48 | DS ---
HISTORY OF PRESENT ILLNESS: I saw him resting comfortably in bed. He is alert, in no acute distress. He is eating. He slept well. He has no pain. PHYSICAL EXAMINATION: VITAL SIGNS: He has a 97.8 temp, 74 pulse, 152/79 blood pressure, 20 respiratory rate, 96% O2 sat on nasal cannula. HEENT: Head is atraumatic, normocephalic. He is on nasal cannula oxygen. HEART: Regular rate. LUNGS: Decreased breath sounds, but clear. ABDOMEN: Soft, obese, nontender. EXTREMITIES: No edema, but he has a right foot that is bandaged. MEDICATIONS: He is currently on Apresoline, aspirin, Dakin's solution, daptomycin I think he will need 4-6 weeks of that, DuoNeb, insulin Levemir, Lipitor, Lopressor. He is on Medrol, which could be raising his white count, PhosLo, Plavix, Protonix, vitamins, Tylenol and Versed, Xopenex. LABORATORY DATA: He has a 25.2 white count, 9.6 hemoglobin, 29.4 hematocrit with a 185 platelets. He has a 140 sodium, potassium is 4, BUN is 79, creatinine is down to 3.4, GFR is up to 18, sugar is 205, calcium is 9.8, total bili is 1.1, AST is 43, ALT is 37, alk phos is 138. ASSESSMENT AND PLAN: He is being seen by Podiatry, Infectious Disease, Pulmonary, Cardiology. He is status post severe sepsis, ventilator-dependent failure, adult respiratory distress syndrome, pneumonia, mitral valve endocarditis, possible right foot osteomyelitis. He will need 4-6 weeks of antibiotics, weekly blood tests. I am hoping Care Management and [employer]ist has arranged for good outpatient facility. Hopefully, we could discharge him today if it is possible. He has been stable clinically. Reagan Mendez DO
== END 2017-12-17 14:58 | DRG 871 ==
LOC: ED 20:21 → ERH 21:13 → 5RSO 23:02 → OBSVTOIN 12-02 10:14 → CCU 12-04 17:02 → ICU 12-12 19:54 → 2RNO 12-14 10:16
PROVIDERS: ADMIT Family Medicine; ATTEND Family Medicine
PROC: 5A09457 Assistance with Respiratory Ventilation, 24-96 Consecutive Hours, Continuous Positive Airway Pressure (ICD-10-PCS; 2017-12-04)
PROC: 06HM33Z Insertion of Infusion Device into Right Femoral Vein, Percutaneous Approach (ICD-10-PCS; 2017-12-06)
PROC: B54BZZA Ultrasonography of Right Lower Extremity Veins, Guidance (ICD-10-PCS; 2017-12-06)
PROC: 4A023N8 Measurement of Cardiac Sampling and Pressure, Bilateral, Percutaneous Approach (ICD-10-PCS; principal; 2017-12-07)
PROC: 5A1945Z Respiratory Ventilation, 24-96 Consecutive Hours (ICD-10-PCS; 2017-12-07)
PROC: 0BH18EZ Insertion of Endotracheal Airway into Trachea, Via Natural or Artificial Opening Endoscopic (ICD-10-PCS; 2017-12-07)
PROC: B2151ZZ Fluoroscopy of Left Heart using Low Osmolar Contrast (ICD-10-PCS; 2017-12-07)
PROC: B2111ZZ Fluoroscopy of Multiple Coronary Arteries using Low Osmolar Contrast (ICD-10-PCS; 2017-12-07)
PROC: 5A1D70Z Performance of Urinary Filtration, Intermittent, Less than 6 Hours Per Day (ICD-10-PCS; 2017-12-08)
PROC: 5A1D70Z Performance of Urinary Filtration, Intermittent, Less than 6 Hours Per Day (ICD-10-PCS; 2017-12-10)
PROC: 02H633Z Insertion of Infusion Device into Right Atrium, Percutaneous Approach (ICD-10-PCS; 2017-12-12)
PROC: B543ZZA Ultrasonography of Right Jugular Veins, Guidance (ICD-10-PCS; 2017-12-12)
PROC: 5A1D70Z Performance of Urinary Filtration, Intermittent, Less than 6 Hours Per Day (ICD-10-PCS; 2017-12-12)
PROC: 4A023N7 Measurement of Cardiac Sampling and Pressure, Left Heart, Percutaneous Approach (ICD-10-PCS; 2017-12-14)
PROC: B2111ZZ Fluoroscopy of Multiple Coronary Arteries using Low Osmolar Contrast (ICD-10-PCS; 2017-12-14)
PROC: 5A1D70Z Performance of Urinary Filtration, Intermittent, Less than 6 Hours Per Day (ICD-10-PCS; 2017-12-14)
DX: A41.9 Sepsis, unspecified organism (principal); J96.01 Acute respiratory failure with hypoxia; J18.9 Pneumonia, unspecified organism; N18.6 End stage renal disease; N17.0 Acute kidney failure with tubular necrosis; I21.4 Non-ST elevation (NSTEMI) myocardial infarction; Z99.11 Dependence on respirator [ventilator] status; I13.2 Hypertensive heart and chronic kidney disease with heart failure and with stage 5 chronic kidney disease, or end stage renal disease; L02.611 Cutaneous abscess of right foot; M86.171 Other acute osteomyelitis, right ankle and foot; N39.0 Urinary tract infection, site not specified; E11.621 Type 2 diabetes mellitus with foot ulcer; L97.519 Non-pressure chronic ulcer of other part of right foot with unspecified severity; R65.20 Severe sepsis without septic shock; I50.9 Heart failure, unspecified; E11.42 Type 2 diabetes mellitus with diabetic polyneuropathy; E11.22 Type 2 diabetes mellitus with diabetic chronic kidney disease; E11.51 Type 2 diabetes mellitus with diabetic peripheral angiopathy without gangrene; L40.9 Psoriasis, unspecified; E78.5 Hyperlipidemia, unspecified; I27.20 Pulmonary hypertension, unspecified; E11.69 Type 2 diabetes mellitus with other specified complication; D64.9 Anemia, unspecified; I05.9 Rheumatic mitral valve disease, unspecified; F17.290 Nicotine dependence, other tobacco product, uncomplicated; I48.91 Unspecified atrial fibrillation; E78.00 Pure hypercholesterolemia, unspecified; B95.62 Methicillin resistant Staphylococcus aureus infection as the cause of diseases classified elsewhere; E66.9 Obesity, unspecified; Z68.31 Body mass index [BMI] 31.0-31.9, adult; Z79.4 Long term (current) use of insulin; Z99.2 Dependence on renal dialysis

== ENCOUNTER 2018-01-09 11:50 | Day surgery (SDC) | payer MEDICARE ==
[2018-01-07 09:34] VITALS: BMI 31.8
[2018-01-09 12:50] LABS: MEAN CELL VOLUME 93.4 fl (80.0-105.0); MEAN CORPUSCULAR HEMOGLOBIN 29.5 pg (25.0-35.0); MEAN CORPUSCULAR HGB CONC 31.6 g/dl (31.0-37.0); MEAN PLATELET VOLUME 10.1 fl (7.0-11.0); PLATELET COUNT 181 10^3/uL (120.0-450.0); RBC 2.71 10^6/uL (3.5-6.1); RED CELL DISTRIBUTION WIDTH 20.2 % (11.5-14.5)
[2018-01-09 12:54] LABS: WHITE BLOOD COUNT 29.2 10^3/ul (4.5-11.0)
[2018-01-09 13:01] LABS: CALCIUM 8.9 mg/dL (8.4-10.5)
[2018-01-09 13:07] LABS: INR 0.94 (0.93-1.08); PARTIAL THROMBOPLASTIN TIME 23.4 Seconds (25.1-36.5); PROTHROMBIN TIME 10.8 SECONDS (9.4-12.5)
[2018-01-09 13:46] LABS: BAND 8 % (0-2); EOSINOPHIL 1 % (0.0-3.0); LYMPHOCYTE 5 % (22.0-35.0); MONOCYTE 4 % (1.0-6.0); NEUTROPHIL 82 % (50.0-70.0); PLATELET ESTIMATE NORMAL (NORMAL)
[2018-01-09] MEDS ORDERED: Lidocaine 2% Inj (20ml) ONE (14:41)
[2018-01-09] MEDS ORDERED: Midazolam 2 MG/2 ML VIAL ONE (14:42)
[2018-01-09] MEDS ORDERED: Oxycodone/Acetaminophen 5/325 mg Tab PO PRN (15:25)
[2018-01-09 16:20] VITALS: BP 123/61; PULSE 65; RESP 20; TEMP 97.5; O2SAT 92
--- NOTE | 2018-01-09 19:06 | VASCULAR ---
PROCEDURE: Removal of tunneled right IJ dialysis catheter. CLINICAL HISTORY: Acute renal failure. Improving renal function. Infected catheter. Needs removal. PHYSICIAN(S): Riccardo Rodrigez M.D. TECHNIQUE: The relative risks and indications of the procedure were explained to the patient and consent obtained. The patient was placed supine on the arteriogram table and the tunneled right IJ dialysis catheter prepped and draped in the usual sterile fashion. Conscious sedation and monitoring were provided throughout the procedure by nurse. 1% Xylocaine was used to anesthetize skin and soft tissues along the tunnel. The tunnel and cuff were bluntly dissected. The catheter was removed and pressure applied at the venous insertion site. A single interrupted suture was placed at the exit site. The patient tolerated the procedure well. IMPRESSION: 1. Removal of the patient's tunneled right IJ dialysis catheter.
== END 2018-01-09 17:45 | disposition designated cancer center or children's hospital (05) ==
LOC: SDS 11:50
PROVIDERS: ATTEND Radiology Vascular & Interventional Radiology
DX: Z49.01 Encounter for fitting and adjustment of extracorporeal dialysis catheter (principal); N18.9 Chronic kidney disease, unspecified
CPT/HCPCS: 36415; 36589; 80048; 85025; 85610; 85730; 99152; J1644; J2250; J2405; J3010; J7030

== ENCOUNTER 2019-01-06 19:07 | Emergency (ER) | payer MEDICARE ==
[2019-01-06 19:07] VITALS: PULSE 127
[2019-01-06 19:46] VITALS: BMI 25.6
[2019-01-06 19:52] VITALS: BP 100/51; PULSE 70; RESP 18; TEMP 97.7; O2SAT 98
[2019-01-06] MEDS ORDERED: TDAP Vaccine 0.5 mL Syr IM ONE (19:56)
--- NOTE | 2019-01-06 20:07 | ED PDOC ---
Arrival/HPI - General Chief Complaint: Abnormal Skin Integrity Time Seen by Provider: 01/06/19 19:08 Historian: Patient - History of Present Illness Narrative History of Present Illness (Text): 01/06/19 20:15 73 year old male, whose past medical history includes diabetes and hypertension, presents to the Emergency department for a cut on left hand. Patient informs he cut his left palm on his wheelchair. Patient states he knows he is not up to date on TDAP. Patient informs he would just like the vaccine. Patient denies any other complaints, including any numbness, decreased rom, other injury. Has no other complaints. Time/Duration: Prior to Arrival Symptom Onset: Sudden Symptom Course: Unchanged Quality: Burning Activities at Onset: Light Context: Home Past Medical History - Provider Review Nursing Documentation Reviewed: Yes - Infectious Disease Hx of Infectious Diseases: None - Cardiac Hx Pacemaker: No - Pulmonary Hx Respiratory Disorders: Yes Other/Comment: 5 broken ribs and scar tissue to R lung - Neurological Hx Neurological Disorder: No - HEENT Hx HEENT Disorder: Yes Other/Comment: glasses - Renal Hx Dialysis: Yes Date of Last Dialysis Treatment: 01/06/19 - Endocrine/Metabolic Hx Endocrine Disorders: Yes Hx Diabetes Mellitus Type 2: Yes - Hematological/Oncological Hx Blood Transfusions: No - Integumentary Hx Dermatological Disorder: Yes Hx Psoriasis: Yes - Musculoskeletal/Rheumatological Hx Musculoskeletal Disorders: No - Gastrointestinal Hx Gastrointestinal Disorders: No - Genitourinary/Gynecological Hx Genitourinary Disorders: No - Psychiatric Hx Emotional Abuse: No Hx Physical Abuse: No Hx Substance Use: No - Surgical History Hx Mastectomy: No - Anesthesia Hx Anesthesia Reactions: No Hx Malignant Hyperthermia: No - Suicidal Assessment Feels Threatened In Home Enviroment: No Family/Social History - Physician Review Nursing Documentation Reviewed: Yes Family/Social History: No Known Family HX Smoking Status: Never Smoked Hx Alcohol Use: No Hx Substance Use: No Allergies/Home Meds Allergies/Adverse Reactions: Allergies kiwi Allergy (Verified 01/06/19 19:46) RASH strawberry Adverse Reaction (Verified 01/06/19 19:46) RASH SHAYAN PERFUME Allergy (Uncoded 01/06/19 19:46) LIPS SWELL rasberries Adverse Reaction (Intermediate, Uncoded 01/06/19 19:46) RASH Home Medications: Home Meds Medication Instructions Recorded Confirmed Acetylcysteine 20% 1 inh INH Q6H 01/08/18 01/09/18 Albuterol/Ipratropium [Duoneb 3 1 inh INH Q6H 01/08/18 01/09/18 mg/0.5 mg (3 ml) UD] Aspirin [Ecotrin] 81 mg PO DAILY 01/08/18 01/09/18 Atorvastatin [Lipitor] 10 mg PO QPM 01/08/18 01/09/18 Calcium Acetate [Phoslo] 667 mg PO ACTID 01/08/18 01/09/18 Clopidogrel [Plavix] 75 mg PO DAILY 01/08/18 01/09/18 Darbepoetin Kareem [Aranesp] 60 mcg SC Q7D 01/08/18 01/09/18 Ferrous Gluconate [Fergon] 324 mg PO TID 01/08/18 01/09/18 Guaifenesin/Dextromethorphan 10 ml PO Q6H PRN 01/08/18 01/09/18 [Mucinex Dm ER 1,200-60 mg Tab] Heparin 5,000 units SC Q8H 01/08/18 01/09/18 Insulin Regular [HumuLIN R] 2 - 8 units SC ACHS 01/08/18 01/09/18 Insulin Glargine, Recombina 50 units SC HS 01/08/18 01/09/18 [Lantus] Levalbuterol [Xopenex] 1 inh IH Q6H 01/08/18 01/09/18 Levothyroxine [Synthroid] 100 mcg PO DAILY 01/08/18 01/09/18 Methylprednisolone [Medrol Dose 12 mg PO Q12H 01/08/18 01/09/18 Pack (21 tabs)] Multivitamin [Multivitamins] 1 tab PO DAILY 01/08/18 01/09/18 Nystatin [Nystop] 1 appl TOP Q8H 01/08/18 01/09/18 Pantoprazole [Protonix EC Tab] 40 mg PO DAILY 01/08/18 01/09/18 guaiFENesin/Dextromethorphan 10 ml PO Q6H PRN 01/08/18 01/09/18 [Robitussin DM] [id number] [Cardizem] 360 mg PO DAILY 01/09/18 01/09/18 Review of Systems - Physician Review All systems were reviewed & negative as marked: Yes - Review of Systems Respiratory: absent: SOB Cardiovascular: absent: Chest Pain Skin: Laceration Neurological: Dizziness. absent: Other (No numbness, No decreased ROM ) Physical Exam Vital Signs Reviewed: Yes Vital Signs Temp Pulse Resp BP Pulse Ox 01/06/19 19:50 97.7 F 70 18 100/51 L 98 Temperature: Afebrile Blood Pressure: Hypotensive Pulse: Regular Respiratory Rate: Normal Appearance: Positive for: Well-Appearing, Non-Toxic, Comfortable Pain Distress: None Mental Status: Positive for: Alert and Oriented X 3 - Systems Exam Upper Extremity: Present: Normal ROM, NORMAL PULSES Neurological: Present: Speech Normal, Motor Func Grossly Intact, Normal Sensory Function Skin: Present: Laceration (Puncture to the left palm, less than 1cm ) Medical Decision Making ED Course and Treatment: 01/06/19 20:25 Impression: 73 year old male presents with skin puncture wound. Plan: -- TDAP -- Wound care Advised to follow up with primary care physician in 1-2 days without fail. Return to the emergency room at any time for any new or worsening symptoms. Patient states he fully agrees with and understands discharge instructions. States that he agrees with the plan and disposition. Verbalized and repeated discharge instructions and plan. I have given the patient opportunity to ask any additional questions. - Medication Orders Current Medication Orders: Discontinued Medications Tetanus/Reduced Diphtheria/Acell Pertussis (Boostrix Vaccine Inj) 0.5 ml IM .ONCE ONE Stop: 01/06/19 19:57 - PA / HEAD TELLER / Resident Statement MD/DO has reviewed & agrees with the documentation as recorded. - Scribe Statement The provider has reviewed the documentation as recorded by the Latosha Walsh Provider Scribe Attestation: All medical record entries made by the Latosha were at my direction and personally dictated by me. I have reviewed the chart and agree that the record accurately reflects my personal performance of the history, physical exam, medical decision making, and the department course for this patient. I have also personally directed, reviewed, and agree with the discharge instructions and disposition. Disposition/Present on Arrival - Present on Arrival Any Indicators Present on Arrival: No History of DVT/PE: No History of Uncontrolled Diabetes: No Urinary Catheter: No History of Decub. Ulcer: No History Surgical Site Infection Following: None - Disposition Have Diagnosis and Disposition been Completed?: Yes Diagnosis: Puncture wound of hand, left Disposition: HOME/ ROUTINE Disposition Time: 20:00 Patient Plan: Discharge Condition: STABLE Discharge Instructions (ExitCare): Wound Care (DC) Additional Instructions: Thank you for letting us take care of you today. You were treated for puncture wound to the left hand. The emergency medical care you received today was directed at your acute symptoms. It may take several days for your symptoms to resolve. Return to the Emergency Department if your symptoms worsen, do not improve, or if you have any other problems. Please contact your doctor in 2 days for re-evaluation and follow up. Bring any paperwork you were given at discharge with you along with any medications you are taking to your follow up visit. Our treatment cannot replace ongoing medical care by a primary care provider (PCP) outside of the emergency department. Thank you for allowing the [facility] team to be part of your care today. Forms: [employer] (Al[place]ian)
== END 2019-01-06 20:33 | disposition home or self-care (01) ==
LOC: ED 19:07
DX: S61.432A Puncture wound without foreign body of left hand, initial encounter (principal); W26.8XXA Contact with other sharp object(s), not elsewhere classified, initial encounter; Z23 Encounter for immunization